=== PATIENT | male | born 1940 | race Caucasian/White ===

== ENCOUNTER → 2018-02-04 08:34 | Outpatient (CLI) | payer OTHER, SELFPAY ==
--- NOTE | 2018-02-04 08:34 | DT_ITS ---
This patient was seen during an EMR downtime February 04, 2018 - February 11, 2018. This patient may have a combination of paper and electronic documentation or all paper documentation. All documentation is viewable within the e-chart portion of [facility] for each patient visit.
[2018-02-10 04:36] LABS: Anion Gap 7 (5-15); BUN 22 mg/dL (7-18); BUN/Creat Ratio 21.4 RATIO (10-20); Calcium,Total 8.9 mg/dL (8.5-10.1); Chloride 105 mmol/L (98-107); Cholesterol 142 mg/dL (200); Creatinine, Serum 1.03 mg/dL (0.70-1.30); EST Glomerular Filtration Rate 75 mL/min (>60); Est Glom Filt Rate - Afr Amer 91 mL/min (>60); Glucose 108 mg/dL (74-106); High Density Lipoprotein 34 mg/dL; Potassium 4.1 mmol/L (3.5-5.1); Sodium Level 139 mmol/L (136-145); Triglycerides 186 mg/dL; Very Low Density Lipoprotein 37 mg/dL (5-40)
== END ==
PROVIDERS: Family Provider Family Medicine; PCP Family Medicine; Visit Provider Family Medicine
DX: E78.5 Hyperlipidemia, unspecified (principal); F52.21 Male erectile disorder; Z12.5 Encounter for screening for malignant neoplasm of prostate
CPT/HCPCS: 36415; 80048; 80061; 84153; G0103

== ENCOUNTER 2018-07-14 04:12 | Observation (INO) | payer MEDICARE, SELFPAY ==
[2018-07-14] VITALS (14 sets, daily range): BP systolic 118–148; BP diastolic 65–82; PULSE 45–68; RESP 12–58; TEMP -7.2–36.7; O2SAT 95–100; BMI 33.5; BMI 32.8
--- NOTE | 2018-07-14 04:46 | EKG12_ITS ---
Test Reason : DIZZINESS Blood Pressure : / mmHG Vent. Rate : 055 BPM Atrial Rate : 055 BPM P-R Int : 156 ms QRS Dur : 138 ms QT Int : 480 ms P-R-T Axes : 058 -48 012 degrees QTc Int : 459 ms Sinus bradycardia with Premature atrial complexes Right bundle branch block Left anterior fascicular block Bifascicular block Cannot rule out Inferior infarct (masked by fascicular block?) , age undetermined Abnormal ECG Confirmed by TOPHER CLEMENTE, EDUARDO ([id number]), offline editor KELL RINCON ([id number]) on 07/17/2018 11:10:02 AM Referred By: JOHNNY Confirmed By:EDUARDO OBANDO MD
--- NOTE | 2018-07-14 04:50 | RAD_ITS ---
STUDY: X-RAY CHEST REASON FOR EXAM: Male, 78 years old. Dizziness and near syncope. TECHNIQUE: PA and lateral views of the chest. COMPARISON: None. FINDINGS: Cardiac monitoring leads are present. There is hyperinflation of the lungs consistent with chronic obstructive lung disease (COPD). There is interstitial thickening visible in both lungs. There is no demonstrated pleural abnormality. Normal size heart. Normal mediastinum and [place]. There is prominence of the pulmonary hilar arteries without peripheral pulmonary vascular congestion. There is atherosclerotic calcification of the aortic arch with tortuosity. There are diffuse degenerative changes of the visualized thoracic spine. Normal visualized ribs, clavicles, and shoulders. There is no demonstrated abnormality of the visualized soft tissue structures of the upper abdomen. RAD/Chest PA and Lateral IMPRESSION: No radiographic evidence of acute cardiopulmonary disease. Electronically Signed: Liliana Johns MD at 5:43 EST , Service support ,
[2018-07-14 04:54] LABS: Absolute Lymphocyte Count 1.69 X10^3/ul (0.83-4.51); Basophil# 0.01 X10^3/uL; Basophil% 0.2 % (0-1); Eosinophil# 0.13 X10^3/uL; Eosinophils% 2.5 % (0-5); Hematocrit 39.5 % (40-54); Hemoglobin 13.3 g/dl (13.0-16.5); Lymphocyte # 1.69 X10^3/ul (4.0); Lymphocyte % 32.7 % (19-41); Mean Corp Hgb Conc 33.7 g/gl (32-36); Mean Platelet Vol. 10.9 fl (6.2-12.0); Monocyte# 0.34 X10^3/uL; Monocyte% 6.6 % (0-10); Neutrophil # 2.99 X10^3/uL (2.7-7.7); Neutrophil % 57.8 % (47-70); Platelet Count 137 K/mm3 (150-450); RBC Distribution Width CV 12.6 % (11.6-14.6); RBC Distribution Width SD 40.4 fl (35.1-43.9); Red Blood Count 4.44 M/mm3 (4.6-6.2); White Blood Count 5.2 K/mm3 (4.4-11.0)
[2018-07-14] MEDS: Aspirin 81 MG TAB.CHEW 324 MG PO (04:54)
[2018-07-14 04:58] LABS: POSITIVE COUNT NO; POSITIVE DIFFERENTIAL NO; POSITIVE MORPHOLOGY NO
[2018-07-14 05:17] LABS: Anion Gap 10 (5-15); BUN 24 mg/dL (7-18); BUN/Creat Ratio 22.2 RATIO (10-20); Chloride 103 mmol/L (98-107); Creatinine, Serum 1.08 mg/dL (0.70-1.30); EST Glomerular Filtration Rate 71 mL/min (>60); Est Glom Filt Rate - Afr Amer 86 mL/min (>60); Estimated Creatinine Clearance 60.08 ml/min; Glucose 106 mg/dL (74-106); Potassium 3.7 mmol/L (3.5-5.1); Sodium Level 142 mmol/L (136-145)
--- NOTE | 2018-07-14 05:33 | HP.PCM_ITS ---
Problem List (1) Near syncope Status: Acute (2) Near syncope Status: Acute (3) Premature ventricular contraction Status: Acute (4) Premature atrial contractions Status: Acute (5) Paroxysmal atrial tachycardia Status: Acute (6) Musculoskeletal chest pain Status: Chronic (7) Ectopic cardiac beats Status: Chronic (8) Atherosclerosis of [place] coronary artery of [place] heart without angina pectoris Status: Chronic (9) Paroxysmal atrial fibrillation Status: Chronic (10) Abnormal stress test Status: Chronic (11) Ventricular ectopy Status: Chronic (12) Angina pectoris Status: Chronic (13) HLD (hyperlipidemia) Status: Chronic Qualifiers: Hyperlipidemia type: mixed hyperlipidemia Qualified Code(s): E78.2 - Mixed hyperlipidemia; E78.2 - Mixed hyperlipidemia; E78.2 - Mixed hyperlipidemia (14) HTN (hypertension) Status: Chronic Qualifiers: Hypertension type: essential hypertension Qualified Code(s): I10 - Essential (primary) hypertension; I10 - Essential (primary) hypertension; I10 - Essential (primary) hypertension History of Present Illness Date of Admission: 07/14/18 Chief Complaint: Dizziness and lightheadedness today The patient is a 78 year old M with history of mild coronary artery disease, paroxysmal A. fib on Xarelto came to ER when he felt dizzy and lightheaded when he got up for bathroom. He was foggy but denies loss of consciousness for about 5 minutes. This resolved on patient feels completely normal. In ED, patient heart rate 54/min, sinus rhythm with no hypoxia. Patient states that he started always in 50s. EKG shows sinus bradycardia with bifascicular block, RBBB and LAFB, LAD at 55 bpm. Past Medical History Past Medical History (Chronic Problems): Chronic Problems (Last Reviewed 05/24/18 @ 15:04 by Jo Alvarez) Musculoskeletal chest pain (Chronic) Ectopic cardiac beats (Chronic) Atherosclerosis of [place] coronary artery of [place] heart without angina pectoris (Chronic) Paroxysmal atrial fibrillation (Chronic) Abnormal stress test (Chronic) Ventricular ectopy (Chronic) Angina pectoris (Chronic) HLD (hyperlipidemia) (Chronic) HTN (hypertension) (Chronic) Medical History: Medical History (Last Reviewed 05/24/18 @ 15:04 by Jo Alvarez) Premature ventricular contraction (Acute) I49.3 Premature atrial contractions (Acute) I49.1 Paroxysmal atrial tachycardia (Acute) I47.1 Paroxysmal atrial fibrillation (Chronic) I48.0 Abnormal stress test (Chronic) Ventricular ectopy (Chronic) I49.3 Angina pectoris (Chronic) I20.9 HLD (hyperlipidemia) (Chronic) E78.5 HTN (hypertension) (Chronic) I10 DDD (degenerative disc disease), cervical M50.30 Allergies No Known Drug Allergies Allergy (Unknown, Verified 07/14/18 04:23) Other Home Medications: Ambulatory Orders Medication Instructions Recorded Hydrochlorothiazide [Hctz] 25 mg PO DAILY 06/20/16 Naproxen [Naprosyn] 1 tab PO DAILY 06/20/16 Simvastatin [Zocor] 20 mg PO DAILY 06/20/16 Nitroglycerin [Nitrostat] 0.4 mg SUBLINGUAL Q5M PRN #1 bottle 06/21/16 Aspirin [Aspirin, Baby] 81 mg PO DAILY@0800 03/19/17 rivaroxaban 20 mg tablet 20 mg PO DAILY #90 tab 11/14/17 atenolol 25 mg tablet 25 mg PO DAILY tab 07/10/18 losartan 100 mg tablet 100 mg PO DAILY 07/10/18 Omeprazole [Prilosec] 20 mg PO DAILY 07/14/18 Surgical History: Surgical History (Last Reviewed 05/24/18 @ 15:04 by Jo Alvarez) History of left heart catheterization Z98.890 06/21/2016- mild obstructive disease; Surgical History: no surgical history Smoking Status: Former smoker Review of Systems Constitutional: Denies: Chills, Fever, Weight Change Eyes: Denies: Blurred vision, Conjunctivae Inflammation, Double vision HEENT: Denies: Head Aches, Sinus Congestion, Sinus Drainage Cardiovascular: Reports: Light Headedness. Denies: Chest Pain, Palpitations Respiratory: Denies: Cough, Shortness of breath at rest, Sputum production Gastrointestinal: Denies: Abdominal Pain, Nausea, Vomiting Genitourinary: Denies: Dysuria Musculoskeletal: Denies: Joint Pain, Joint Tenderness Skin: Denies: Rash, Wounds Neurological: Denies: Numbness, Tingling, Focal weakness Psychiatric: Denies: Anxiety, Depression, Homicidal Ideations, Suicidal Ideations Hematologic/ Lymphatic: Denies: Easy Bruising, Easy Bleeding VTE Information - Inpt Only VTE Present on Admission: No VTE Mechan Device Prophylaxis: None Reason prophylaxis not ordered:: Procedure Not Indicated - On Xarelto Patient Problems: Active and Suspected Problems (Last Reviewed 05/24/18 @ 15:04 by Jo Alvarez) Near syncope (Acute) Near syncope (Acute) - Physical Exam General: Alert, Oriented x3, Cooperative HEENT: Atraumatic, PERRLA, EOMI, Normocephalic Neck: Supple, No JVD, Negative Carotid Bruits Lungs: Clear to auscultation, Normal air movement, No rhonchi, No wheeze, No rales Cardiovascular: Regular Rhythm, Normal S1, Normal S2, No murmurs, Bradycardic Abdomen: Bowel Sounds Present, Soft, Non Tender, Non-Distended Extremities: Capillary Refill Less than 3 Seconds, Edema, - - Mild chronic venous stasis with flores discoloration Skin: No rashes, No breakdown Musculoskeletal: No Tenderness to Palpation of Joints or Extremities, Arthritic Changes Neurological: Cranial nerves II-XII grossly intact, Deep Tendon Reflexes 2+/4 and Symmetrical, Neuro grossly intact, Motor Exam 5/5 strength throughout Psych/Mental Status: Normal Affect, Appropriate Vital Signs Temp Pulse Resp BP Pulse Ox 97.7 F L 54 L 20 H 125/82 H 96 07/14/18 04:14 07/14/18 04:14 07/14/18 04:14 07/14/18 04:14 07/14/18 04:46 Oxygen Delivery Method Room Air Weight: 233 lb 7.512 oz Body Mass Index (BMI) 33.5 Laboratory Tests Past 24 Hrs 07/14/18 07/14/18 04:30 04:30 WBC 5.2 RBC 4.44 L Hgb 13.3 Hct 39.5 L MCV 89.0 MCH 30.0 MCHC 33.7 RDW 12.6 RDW Differential 40.4 Plt Count 137 L MPV 10.9 Immature Gran % (Auto) 0.200 Neut % (Auto) 57.8 Lymph % (Auto) 32.7 [place] % (Auto) 6.6 Eos % (Auto) 2.5 Baso % (Auto) 0.2 Absolute Neuts (auto) 3.0 Absolute Lymphs (auto) 1.69 Total Counted Not Reportable Sodium 142 Potassium 3.7 Chloride 103 Carbon Dioxide 29.0 Anion Gap 10 BUN 24 H Creatinine 1.08 Estim Creat Clear Calc 60.08 Est GFR (MDRD) Af Amer 86 Est GFR (MDRD) Non-Af 71 BUN/Creatinine Ratio 22.2 H Glucose 106 Calcium 9.0 Troponin I < 0.015 Assessment/Plan All Active Problems (Last Reviewed 05/24/18 @ 15:04 by Jo Alvarez) Near syncope (Acute) Near syncope (Acute) Premature ventricular contraction (Acute) Premature atrial contractions (Acute) Paroxysmal atrial tachycardia (Acute) The patient is a 78 year old M with history of mild coronary artery disease, paroxysmal A. fib on Xarelto came to ER when he felt dizzy and lightheaded when he got up for bathroom. He was foggy but denies loss of consciousness for about 5 minutes. This resolved on patient feels completely normal. In ED, patient heart rate 54/min, sinus rhythm with no hypoxia. Patient states that he started always in 50s. EKG shows sinus bradycardia with bifascicular block, RBBB and LAFB, LAD at 55 bpm. 1. Near syncope, probably vasovagal/bradycardia: The patient is being admitted in PCU for observation. Cardiac monitoring. Orthostatic vitals. IV fluid normal saline 75 mL/h. 2D echo ordered. Patient had echo in June 2016 which showed mild concentric LVH, normal LV size and systolic function; EF 65%. No regional wall motion abnormality. Left atrium moderately enlarged. Normal right atrium. Normal right ventricular systolic function. No significant valvular pathology. RVSP 28 mmHg. 2. Coronary artery disease,: and mild carotid stenosis: The patient had cardiac cath in June 2016 reported as mild diffuse 10 to 25% disease in proximal to mid LAD, diagonal 1 ostial/proximal 25%. EF 65% by LV gram. Patient had carotid Doppler in June 2017 reported as approximately 50% stenosis in the ICA bilaterally. 3. Arrhythmia: PVCs, proximal atrial tachycardia, paroxysmal atrial fibrillation on Xarelto and Chronic RBBB and LAFB bifascicular block : Stable. 4. Hypertension and dyslipidemia: Home medication reconciliation done. Fasting lipid profile tomorrow a.m. DVT prophylaxis: On Xarelto Clinical Impression(s) from Imaging Studies Chest X-Ray 07/14/18 04:50 IMPRESSION: No radiographic evidence of acute cardiopulmonary disease. Laboratory Results 07/14/18 04:30: WBC 5.2, RBC 4.44 L, Hgb 13.3, Hct 39.5 L, MCV 89.0, MCH 30.0, MCHC 33.7, RDW 12.6, RDW Differential 40.4, Plt Count 137 L, MPV 10.9, Immature Gran % (Auto) 0.200, Neut % (Auto) 57.8, Lymph % (Auto) 32.7, [place] % (Auto) 6.6, Eos % (Auto) 2.5, Baso % (Auto) 0.2, Absolute Neuts (auto) 3.0, Absolute Lymphs (auto) 1.69, Total Counted Not Reportable 07/14/18 04:30: Sodium 142, Potassium 3.7, Chloride 103, Carbon Dioxide 29.0, Anion Gap 10, BUN 24 H, Creatinine 1.08, Estim Creat Clear Calc 60.08, Est GFR (MDRD) Af Amer 86, Est GFR (MDRD) Non-Af 71, BUN/Creatinine Ratio 22.2 H, Glucose 106, Calcium 9.0, Troponin I < 0.015 07/14/18 04:30: Magnesium Pending Code Visit OBSV E&M: [id number] Initial observation care L3
--- NOTE | 2018-07-14 05:47 | ED.VISSUMM ---
- ER Visit Summary Date of Service: 07/14/18 Chief Complaint: Dizziness History of Present Illness: The patient is a 78 M who presents with dizziness. He describes this is near syncope. He woke up to go to the bathroom and felt very dizzy and had to stop and lean against his bed. He states that he became diaphoretic. This episode lasted about 5 minutes. Currently he is asymptomatic. No associated chest pain or shortness of breath. He does have a history of paroxysmal atrial fibrillation. His atenolol was recently increased however he went back to his previous dosing due to bradycardia. Physical Examination: Afebrile vitals notable for heart rate 54. Moist mucous membranes Heart regular rate and rhythm Lungs are clear Abdomen soft Alert Test Results: EKG shows sinus bradycardia at a rate of 55 with a right bundle branch block and left anterior fascicular block. CBC BMP troponin unremarkable, negative troponin. Chest x-ray on my review shows no acute process. Emergency Department Course and Treatment: Patient remained hemodynamically stable here in the emergency department and remained asymptomatic. Given his comorbidities with diaphoresis and near syncope I felt that he should be placed in observation for cardiac monitoring and serial enzymes. He was discussed with hospitalist and admitted. Treatment Plan: [] Disposition: Admit Impression: Near syncope This note was generated with [employer] dictation software. It may contain incorrect words, spelling, and punctuation that were not noted in review of the chart prior to signing ED Disposition - Plan for ED Patient: Chief Complaint: Dizziness Referrals: Jadiel Johns MD [Primary Care Provider] -
[2018-07-14] MEDS: 0.9% Normal Saline 1,000 ML 100 ML IV ×2 (07:02→15:41)
[2018-07-14] MEDS: 0.9% NaCl Peripheral Flush Adult/Peds IV (07:03)
[2018-07-14 08:16] LABS: Magnesium 1.7 mg/dL (1.6-2.6)
[2018-07-14] MEDS: Rivaroxaban 20 MG Tablet PO (09:30)
[2018-07-14] MEDS: Pantoprazole Sodium 20 MG Tablet PO (09:30)
[2018-07-14] MEDS: Aspirin 81 MG TAB.CHEW PO (09:30)
[2018-07-14] MEDS: Atenolol 25 MG Tablet PO (09:30)
[2018-07-14] MEDS: hydroCHLOROthiazide 25 MG Tablet PO (09:30)
[2018-07-14] MEDS: Losartan Potassium 100 MG Tablet PO (09:55)
[2018-07-14] MEDS: Naproxen 500 MG Tablet PO (09:55)
--- NOTE | 2018-07-14 12:54 | PN_ITS ---
<Lu Eugene - Last Filed: 07/14/18 12:54> Patient Problems: Active and Suspected Problems (Last Reviewed 05/24/18 @ 15:04 by Jo Alvarez) Near syncope (Acute) Near syncope (Acute) Subjective: Patient seen and examined. Denies further dizziness, syncope/presyncope. Denies chest pain, shortness of breath. Wishes to return home as soon as possible. - Physical Exam General: Alert, Oriented x3, Cooperative HEENT: Atraumatic, PERRLA, EOMI, Normocephalic Neck: Supple, No JVD, Negative Carotid Bruits Lungs: Clear to auscultation, Normal air movement Cardiovascular: Regular Rhythm, Normal S1, Normal S2, No murmurs, Bradycardic Abdomen: Bowel Sounds Present, Soft, Non Tender, Non-Distended Extremities: No clubbing, No cyanosis, No edema, Capillary Refill Less than 3 Seconds Skin: No rashes, No breakdown Musculoskeletal: No Tenderness to Palpation of Joints or Extremities Neurological: Cranial nerves II-XII grossly intact, Neuro grossly intact Psych/Mental Status: Normal Affect, Appropriate Vital Signs Temp Pulse Resp BP Pulse Ox 97.8 F 50 L 16 120/69 98 07/14/18 09:36 07/14/18 11:00 07/14/18 09:36 07/14/18 09:37 07/14/18 09:36 Oxygen Delivery Method Room Air Weight: 228 lb 13.437 oz Body Mass Index (BMI) 32.8 Orthostatic Vital Signs Start: 07/14/18 09:37 Freq: q24h Status: Active Protocol: Activity Type Activity Date Activity User E-Sign Co-Sign Detail Recorded Client Recorded Date Recorded By Document 07/14/18 09:37 MLB [id number] 07/14/18 09:38 MLB 07/14/18 09:37 Orthostatic Vitals Standing -Blood Pressure (90/60-120/80) 129/65 H -Extremity Use Right Arm -Pulse Rate (60-100) 64 Sitting -Blood Pressure (90/60-120/80) 118/73 -Extremity Use Right Arm -Pulse Rate (60-100) 68 Lying -Blood Pressure (90/60-120/80) 120/69 -Extremity Use Right Arm -Pulse Rate (60-100) 58 L Laboratory Tests Past 24 Hrs 07/14/18 07/14/18 07/14/18 04:30 04:30 04:30 WBC 5.2 RBC 4.44 L Hgb 13.3 Hct 39.5 L MCV 89.0 MCH 30.0 MCHC 33.7 RDW 12.6 RDW Differential 40.4 Plt Count 137 L MPV 10.9 Immature Gran % (Auto) 0.200 Neut % (Auto) 57.8 Lymph % (Auto) 32.7 [place] % (Auto) 6.6 Eos % (Auto) 2.5 Baso % (Auto) 0.2 Absolute Neuts (auto) 3.0 Absolute Lymphs (auto) 1.69 Total Counted Not Reportable Sodium 142 Potassium 3.7 Chloride 103 Carbon Dioxide 29.0 Anion Gap 10 BUN 24 H Creatinine 1.08 Estim Creat Clear Calc 60.08 Est GFR (MDRD) Af Amer 86 Est GFR (MDRD) Non-Af 71 BUN/Creatinine Ratio 22.2 H Glucose 106 Calcium 9.0 Magnesium 1.7 Troponin I < 0.015 07/14/18 07/14/18 07:35 10:45 WBC RBC Hgb Hct MCV MCH MCHC RDW RDW Differential Plt Count MPV Immature Gran % (Auto) Neut % (Auto) Lymph % (Auto) [place] % (Auto) Eos % (Auto) Baso % (Auto) Absolute Neuts (auto) Absolute Lymphs (auto) Total Counted Sodium Potassium Chloride Carbon Dioxide Anion Gap BUN Creatinine Estim Creat Clear Calc Est GFR (MDRD) Af Amer Est GFR (MDRD) Non-Af BUN/Creatinine Ratio Glucose Calcium Magnesium Troponin I 0.017 0.015 Medical Necessity - Tobacco Use Smoking Status: Former smoker Assessment/Plan All Active Problems (Last Reviewed 05/24/18 @ 15:04 by Jo Alvarez) Near syncope (Acute) Near syncope (Acute) Premature ventricular contraction (Acute) Premature atrial contractions (Acute) Paroxysmal atrial tachycardia (Acute) 1. Near syncope, suspect vasovagal-orthostatic vitals negative. Troponin negative. Chest x-ray without acute process. EKG on admission without ST-T changes. Obtain echocardiogram. 2. Mild bradycardia-suspect due to beta-racquel regimen. Heart rate consistently in the 50s. Monitor telemetry for significant bradycardia. 3. CAD-no prior PCI. Cardiac catheterization June 2016 with mild CAD. Managed medically. Patient follows with Dr. Amaro. Continue aspirin, statin, beta-racquel. 4. Paroxysmal atrial fibrillation-continue home Xarelto regimen, atenolol. 5. Hypertension-stable, continue home HCTZ, losartan regimen. 6. Hyperlipidemia-continue statin. 7. GERD-continue omeprazole. DVT prophylaxis-Xarelto. This patient was seen by AILYN Garcia under the supervision of Dr. Elias. <Anthony Elias - Last Filed: 07/14/18 14:15> - Physical Exam Vital Signs Temp Pulse Resp BP Pulse Ox 97.8 F 50 L 16 120/69 98 07/14/18 09:36 07/14/18 11:00 07/14/18 09:36 07/14/18 09:37 07/14/18 09:36 Oxygen Delivery Method Room Air Weight: 103.8 kg Body Mass Index (BMI) 32.8 Orthostatic Vital Signs Start: 07/14/18 09:37 Freq: q24h Status: Active Protocol: Activity Type Activity Date Activity User E-Sign Co-Sign Detail Recorded Client Recorded Date Recorded By Document 07/14/18 09:37 MLB [id number] 07/14/18 09:38 MLB 07/14/18 09:37 Orthostatic Vitals Standing -Blood Pressure (90/60-120/80) 129/65 H -Extremity Use Right Arm -Pulse Rate (60-100) 64 Sitting -Blood Pressure (90/60-120/80) 118/73 -Extremity Use Right Arm -Pulse Rate (60-100) 68 Lying -Blood Pressure (90/60-120/80) 120/69 -Extremity Use Right Arm -Pulse Rate (60-100) 58 L Laboratory Tests Past 24 Hrs 07/14/18 07/14/18 07/14/18 04:30 04:30 04:30 WBC 5.2 RBC 4.44 L Hgb 13.3 Hct 39.5 L MCV 89.0 MCH 30.0 MCHC 33.7 RDW 12.6 RDW Differential 40.4 Plt Count 137 L MPV 10.9 Immature Gran % (Auto) 0.200 Neut % (Auto) 57.8 Lymph % (Auto) 32.7 [place] % (Auto) 6.6 Eos % (Auto) 2.5 Baso % (Auto) 0.2 Absolute Neuts (auto) 3.0 Absolute Lymphs (auto) 1.69 Total Counted Not Reportable Sodium 142 Potassium 3.7 Chloride 103 Carbon Dioxide 29.0 Anion Gap 10 BUN 24 H Creatinine 1.08 Estim Creat Clear Calc 60.08 Est GFR (MDRD) Af Amer 86 Est GFR (MDRD) Non-Af 71 BUN/Creatinine Ratio 22.2 H Glucose 106 Calcium 9.0 Magnesium 1.7 Troponin I < 0.015 07/14/18 07/14/18 07:35 10:45 WBC RBC Hgb Hct MCV MCH MCHC RDW RDW Differential Plt Count MPV Immature Gran % (Auto) Neut % (Auto) Lymph % (Auto) [place] % (Auto) Eos % (Auto) Baso % (Auto) Absolute Neuts (auto) Absolute Lymphs (auto) Total Counted Sodium Potassium Chloride Carbon Dioxide Anion Gap BUN Creatinine Estim Creat Clear Calc Est GFR (MDRD) Af Amer Est GFR (MDRD) Non-Af BUN/Creatinine Ratio Glucose Calcium Magnesium Troponin I 0.017 0.015 Assessment/Plan This patient was seen in conjunction with AILYN Garcia . I have independently interviewed and examined the patient and reviewed pertinent historical, laboratory, and other data. Please refer to AILYN Garcia note for details of this patient's presentation, findings, and recommendations. I have reviewed AILYN Garcia note and concur with documented findings. In brief, patient 78-year-old gentleman admitted with near syncopal episode. Patient has been admitted to a monitored bed currently undergoing evaluation Assessment: Recommendations: 1. I have discussed the results of my overview and impressions with the patient 2. Options for management were reviewed
[2018-07-14] MEDS: Docusate Sodium 100 MG Capsule 200 MG PO (15:44)
[2018-07-14] MEDS: Atorvastatin Calcium 10 MG Tablet PO (21:46)
[2018-07-15] MEDS: 0.9% Normal Saline 1,000 ML 100 ML IV (01:45)
[2018-07-15 02:59] VITALS: PULSE 53
[2018-07-15 03:27] VITALS: BP 149/73; PULSE 53; RESP 18; TEMP 36.3; O2SAT 98
--- NOTE | 2018-07-15 05:55 | ECHOD_ITS ---
Reason For Study: [place]hm[place], Near Syncope Procedure This was a 2D Doppler, Color Flow transthoracic echocardiogram. Exam performed portable in patient room. Left Ventricle Normal LV size. Left ventricular systolic function is normal. The estimated ejection fraction is 65 %. No evidence for diastolic dysfunction. No regional wall motion abnormalities noted. Right Ventricle Normal RV size. Normal systolic function. Atria The left atrium is mildly enlarged. The right atrium is mildly enlarged. Mitral Valve Normal mitral valve. Tricuspid Valve Normal tricuspid valve. Mild (1+) tricuspid valve insufficiency. Pulmonary artery systolic pressure is 45 mmHg. Aortic Valve Normal aortic valve. Trisinus/trileaflet aortic valve. Pulmonic Valve Normal pulmonic valve. Great Vessels Normal aortic root. The pulmonary artery is normal size. Normal inferior vena cava. Pericardium/Pleural No pericardial effusion. MMode/2D Measurements & Calculations LVIDd: 4.6 cm IVSd: 1.0 cm Ao root diam: 3.5 cm LVIDs: 3.2 cm LVPWd: 1.1 cm RVDd: 4.6 cm FS: 31.3 % LAV(MOD-bp): 67.9 ml LVAd ap4: 30.1 cm2 SV(MOD-sp4): 72.8 ml LAV(MOD-bp) Indexed: 30.8 ml/m2 EDV(MOD-sp4): 95.6 ml LAV(MOD-sp2): 78.9 ml EDV(sp4-el): 101.0 ml LAV(MOD-sp4): 55.5 ml LVAs ap4: 12.3 cm2 ESV(MOD-sp4): 22.8 ml ESV(sp4-el): 21.6 ml EF(MOD-sp4): 76.1 % EF(sp4-el): 78.7 % SV(sp4-el): 79.5 ml LA A4 area: 20.9 cm2 LA dimension(2D): 4.5 cm RA A4 area: 24.1 cm2 Doppler Measurements & Calculations MV E max dillan: 103.8 cm/sec Lat Peak E' Dillan: 9.0 cm/sec Med Peak E' Dillan: 6.5 cm/sec MV A max dillan: 74.7 cm/sec E/E' lat: 11.6 E/E' med: 15.9 MV E/A: 1.4 Ao V2 max: 159.2 cm/sec LV V1 max: 146.6 cm/sec PA V2 max: 108.3 cm/sec Ao max P.1 mmHg LV V1 max P.6 mmHg Ao V2 mean: 114.1 cm/sec Ao mean P.7 mmHg Ao V2 VTI: 41.6 cm PI end-d dillan: 97.7 cm/sec TR max dillan: 316.4 cm/sec TR max P.1 mmHg Interpretation Summary Normal LV size. Left ventricular systolic function is normal. The estimated ejection fraction is 65 %. No evidence for diastolic dysfunction. Mild (1+) tricuspid valve insufficiency. Pulmonary artery systolic pressure is 45 mmHg. Ordering Physician: Hamilton Ball Referring Physician: Jadiel Johns Performed By: Corinne Lemons RDCS, RVT
[2018-07-15 06:49] LABS: Thyroid Stim Hormone (TSH) 1.46 uIU/mL (0.358-3.74)
[2018-07-15 07:00] VITALS: PULSE 50
[2018-07-15] MEDS: Aspirin 81 MG TAB.CHEW PO (08:00)
[2018-07-15] MEDS: Naproxen 500 MG Tablet PO (08:00)
[2018-07-15] MEDS: Losartan Potassium 100 MG Tablet PO (08:00)
[2018-07-15] MEDS: hydroCHLOROthiazide 25 MG Tablet PO (08:01)
[2018-07-15] MEDS: Pantoprazole Sodium 20 MG Tablet PO (08:01)
[2018-07-15] MEDS: Rivaroxaban 20 MG Tablet PO (08:01)
[2018-07-15 09:25] VITALS: BP 155/75; PULSE 49; RESP 14; TEMP 36.7; O2SAT 96
[2018-07-15 11:00] VITALS: PULSE 63
--- NOTE | 2018-07-15 11:11 | PCM.DC ---
- Discharge Diagnoses Current Active Problems: Current Active and Chronic Problems (Last Reviewed 05/24/18 @ 15:04 by Jo Alvarez) Near syncope (Acute) You will use the following diet at home:: Cardiac Discharge Activity: Return to Normal Activity Call your doctor if you observe: Shortness of breath, Dizziness, Fainting spells, Chest pain Allergies/Adverse Reactions: Allergies No Known Drug Allergies Allergy (Unknown, Verified 07/14/18 04:23) Other Medications to take at Discharge Hydrochlorothiazide [Hctz] 25 mg PO DAILY 06/20/16 Naproxen [Naprosyn] 1 tab PO PRN PRN 06/20/16 Simvastatin [Zocor] 20 mg PO DAILY 06/20/16 Nitroglycerin [Nitrostat] 0.4 mg SUBLINGUAL Q5M PRN #1 bottle 06/21/16 Aspirin [Aspirin, Baby] 81 mg PO DAILY@0800 03/19/17 rivaroxaban 20 mg tablet 20 mg PO DAILY #90 tab 11/14/17 losartan 100 mg tablet 100 mg PO DAILY 07/10/18 Omeprazole [Prilosec] 20 mg PO DAILY 07/14/18 Atenolol [Tenormin (beta racquel)] 12.5 mg PO DAILY #0 tab 07/15/18 Primary Care Physician: Jadiel Johns MD [Primary Care Provider] - Please follow up with your Primary Care Physician in: 1 Week Test Results: Test results from this visit will be discussed in further detail at your follow-up appointment, if applicable. Proposed Discharge Date: 07/15/18
--- NOTE | 2018-07-15 11:14 | DCINST_ITS ---
- Discharge Diagnoses Current Active Problems: Current Active and Chronic Problems (Last Reviewed 05/24/18 @ 15:04 by Jo Alvarez) Near syncope (Acute) You will use the following diet at home:: Cardiac Discharge Activity: Return to Normal Activity Call your doctor if you observe: Shortness of breath, Dizziness, Fainting spells, Chest pain Allergies/Adverse Reactions: Allergies No Known Drug Allergies Allergy (Unknown, Verified 07/14/18 04:23) Other Medications to take at Discharge Hydrochlorothiazide [Hctz] 25 mg PO DAILY 06/20/16 Naproxen [Naprosyn] 1 tab PO PRN PRN 06/20/16 Simvastatin [Zocor] 20 mg PO DAILY 06/20/16 Nitroglycerin [Nitrostat] 0.4 mg SUBLINGUAL Q5M PRN #1 bottle 06/21/16 Aspirin [Aspirin, Baby] 81 mg PO DAILY@0800 03/19/17 rivaroxaban 20 mg tablet 20 mg PO DAILY #90 tab 11/14/17 losartan 100 mg tablet 100 mg PO DAILY 07/10/18 Omeprazole [Prilosec] 20 mg PO DAILY 07/14/18 Atenolol [Tenormin (beta racquel)] 12.5 mg PO DAILY #0 tab 07/15/18 Primary Care Physician: Jadiel Johns MD [Primary Care Provider] - Please follow up with your Primary Care Physician in: 1 Week Test Results: Test results from this visit will be discussed in further detail at your follow- up appointment, if applicable. Proposed Discharge Date: 07/15/18
--- NOTE | 2018-07-15 11:19 | PCM.DC.SUM ---
<Lu Eugene - Last Filed: 07/15/18 11:34> Discharge Date and Diagnosis Date of Admission: 07/14/18 Date of Discharge: 07/15/18 - Primary Discharge Diagnosis Active and Suspected Problems (Last Reviewed 05/24/18 @ 15:04 by Jo Alvarez) 1. Near syncope, suspect vasovagal 2. Mild bradycardia 3. CAD 4. Paroxysmal atrial fibrillation 5. Hypertension 6. Hyperlipidemia 7. GERD - Secondary Discharge Diagnosis Chronic Problems (Last Reviewed 05/24/18 @ 15:04 by Jo Alvarez) Musculoskeletal chest pain (Chronic) Ectopic cardiac beats (Chronic) Atherosclerosis of [place] coronary artery of [place] heart without angina pectoris (Chronic) Paroxysmal atrial fibrillation (Chronic) Abnormal stress test (Chronic) Ventricular ectopy (Chronic) Angina pectoris (Chronic) HLD (hyperlipidemia) (Chronic) HTN (hypertension) (Chronic) Hospital Course and Treatment Imaging Results: Diagnostic Data Chest X-Ray 07/14/18 04:50 IMPRESSION: No radiographic evidence of acute cardiopulmonary disease. Electronically Signed: Liliana Johns MD at 5:43 EST , Service support , Operations: None Procedures: 2-D Echocardiogram Summary of Care Provided: The patient is a 78 year old M admitted 07/14/2018 due to dizziness, lightheadedness. 1. Near syncope, suspect vasovagal-orthostatic vitals negative. Troponin negative. Chest x-ray without acute process. EKG on admission without ST-T changes. Echocardiogram completed, will be reviewed prior to discharge. Patient reports he took large dose of Viagra prior to episode of dizziness, lightheadedness. He states he got this medication from a friend. Discussed with patient to speak with primary care physician about further prescription. Follow-up with primary care physician in 1 week. 2. Mild bradycardia-suspect due to beta-racquel regimen. Reduce home atenolol regimen to 12.5 mg daily. No significant bradycardia on telemetry, heart rate consistently in the 50s. 3. CAD-no prior PCI. Cardiac catheterization June 2016 with mild CAD. Managed medically. Patient follows with Dr. Amaro. Continue aspirin, statin, beta-racquel. Continue scheduled outpatient follow-up with Dr. Moodispaw. 4. Paroxysmal atrial fibrillation-continue home Xarelto regimen, atenolol. 5. Hypertension-stable, continue home HCTZ, losartan regimen. 6. Hyperlipidemia-continue statin. 7. GERD-continue omeprazole. General: Alert, Oriented x3, Cooperative HEENT: Atraumatic, PERRLA, EOMI, Normocephalic Neck: Supple, No JVD, Negative Carotid Bruits Lungs: Clear to auscultation, Normal air movement Cardiovascular: Regular Rhythm, Normal S1, Normal S2, No murmurs, Bradycardic Abdomen: Bowel Sounds Present, Soft, Non Tender, Non-Distended Extremities: No clubbing, No cyanosis, No edema, Capillary Refill Less than 3 Seconds Skin: No rashes, No breakdown Musculoskeletal: No Tenderness to Palpation of Joints or Extremities Neurological: Cranial nerves II-XII grossly intact, Neuro grossly intact Psych/Mental Status: Normal Affect, Appropriate Patient seen exam prior to discharge. Physical assessment as noted above. Patient stable for discharge home with the follow-up her conditions as noted above. This patient was seen by AILYN Garcia under the supervision of Dr. Pineda. - Physical Exam Vital Signs Temp Pulse Resp BP Pulse Ox 98.0 F 49 L 14 155/75 H 96 07/15/18 09:25 07/15/18 09:25 07/15/18 09:25 07/15/18 09:25 07/15/18 09:25 Oxygen Delivery Method Room Air Weight: 228 lb 13.437 oz Body Mass Index (BMI) 32.8 Orthostatic Vital Signs Start: 07/14/18 09:37 Freq: q24h Status: Active Protocol: Activity Type Activity Date Activity User E-Sign Co-Sign Detail Recorded Client Recorded Date Recorded By Document 07/14/18 09:37 MLB [id number] 07/14/18 09:38 MLB 07/14/18 09:37 Orthostatic Vitals Standing -Blood Pressure (90/60-120/80) 129/65 H -Extremity Use Right Arm -Pulse Rate (60-100) 64 Sitting -Blood Pressure (90/60-120/80) 118/73 -Extremity Use Right Arm -Pulse Rate (60-100) 68 Lying -Blood Pressure (90/60-120/80) 120/69 -Extremity Use Right Arm -Pulse Rate (60-100) 58 L Intake and Output for Last 24 Hours 07/13/18 07/14/18 07/15/18 23:59 23:59 23:59 Intake Total 2088 520 / 520 Balance 2088 520 / 520 Laboratory Tests Past 24 Hrs 07/14/18 07/15/18 10:45 05:45 Troponin I 0.015 TSH 1.46 Discharge Diet: Low fat/ Low Cholesterol Discharge Activity: Return to Normal Activity Call your doctor if you observe: Shortness of breath, Dizziness, Fainting spells, Chest pain Home Medications: Medications to take at Discharge Hydrochlorothiazide [Hctz] 25 mg PO DAILY 06/20/16 Naproxen [Naprosyn] 1 tab PO PRN PRN 06/20/16 Simvastatin [Zocor] 20 mg PO DAILY 06/20/16 Nitroglycerin [Nitrostat] 0.4 mg SUBLINGUAL Q5M PRN #1 bottle 06/21/16 Aspirin [Aspirin, Baby] 81 mg PO DAILY@0800 03/19/17 rivaroxaban 20 mg tablet 20 mg PO DAILY #90 tab 11/14/17 losartan 100 mg tablet 100 mg PO DAILY 07/10/18 Omeprazole [Prilosec] 20 mg PO DAILY 07/14/18 Atenolol [Tenormin (beta racquel)] 12.5 mg PO DAILY #0 tab 07/15/18 Primary Care Physician: Jadiel Johns MD [Primary Care Provider] - Please follow up with your Primary Care Physician in: 1 Week Please Follow Up With: Mainor Amaro MD When: As scheduled Disposition: Home Minutes spent on discharge:: 35 Patient Condition:: Stable Medical Necessity - Tobacco Use Smoking Status: Former smoker Meaningful Use Info Meaningful Use Diagnoses (Choose all that apply): None applicable <Yanique Pineda E - Last Filed: 07/16/18 10:35> Discharge Date and Diagnosis - Secondary Discharge Diagnosis Chronic Problems (Last Reviewed 05/24/18 @ 15:04 by Jo Alvarez) Musculoskeletal chest pain (Chronic) Ectopic cardiac beats (Chronic) Atherosclerosis of [place] coronary artery of [place] heart without angina pectoris (Chronic) Paroxysmal atrial fibrillation (Chronic) Abnormal stress test (Chronic) Ventricular ectopy (Chronic) Angina pectoris (Chronic) HLD (hyperlipidemia) (Chronic) HTN (hypertension) (Chronic) Hospital Course and Treatment Imaging Results: 07/15/18 05:55 Echo Complete [ECHO] AM (NON MEDS) Summary of Care Provided: Hospitalist note: Discharge summary above reviewed and I agree with above discharge plan. Patient was admitted for near syncopal event. His workup during this hospital stay was unremarkable. His EKG revealed normal sinus rhythm without evidence of acute ischemic changes. His troponin was negative. His orthostatic vitals were negative. His chest x-ray showed no acute findings. His routine blood work was unremarkable. His heart rate has been in the 50s but he has been currently on atenolol for history of paroxysmal atrial fibrillation. This near syncopal event attributed to taking a large dose of Viagra which was reported by the patient after admission. Patient mentioned that he took 1 full tablet of Viagra and shortly after, he felt dizzy and lightheaded and about the past. There was no evidence of other acute pathology identified to explain his near syncopal events. 2D echocardiogram revealed normal LV size and function, ejection fraction of 65%, mild tricuspid insufficiency, pulmonary artery pressure of 45. Patient's blood pressure and other vital signs remained stable throughout admission except chronic bradycardia. Symptoms improved. Patient discharged home in a stable medical condition, discharged on his home medication without any changes, recommended to use a smaller dose of Viagra if needed and to discuss with his PCP regarding the use of Viagra, recommended follow-up with PCP in 1 week. - Physical Exam General: Alert, Oriented x3, Cooperative, No apparent distress. HEENT: Atraumatic, PERRLA, EOMI. Neck: Supple, No JVD, Negative Carotid Bruits, Trachea Midline, Thyroid Normal. Lungs: Clear to auscultation, Normal air movement, No rhonchi, No wheeze, No rales. Cardiovascular: Regular rate, Regular Rhythm, Normal S1, Normal S2, PMI Normal. Abdomen: Bowel Sounds Present, Soft, Non Tender, Non-Distended, No Hepato-splenomegaly. Extremities: No clubbing, No cyanosis, No edema Skin: No rashes, No breakdown Neurological: Neuro grossly intact Vital Signs are stable. This note was generated with [employer] software. It may contain incorrect words, spelling, and punctuation that were not noted in checking the note before signing. - Physical Exam Vital Signs Temp Pulse Resp BP Pulse Ox 98.0 F 63 14 155/75 H 96 07/15/18 09:25 07/15/18 11:00 07/15/18 09:25 07/15/18 09:25 07/15/18 09:25 Oxygen Delivery Method Room Air Weight: 228 lb 13.437 oz Body Mass Index (BMI) 32.8 Intake and Output for Last 24 Hours 07/13/18 07/14/18 07/15/18 23:59 23:59 23:59 Intake Total 2088 520 / 520 Balance 2088 520 / 520 Laboratory Tests Past 24 Hrs 07/15/18 05:45 TSH 1.46 Minutes spent on discharge:: 26 Patient Condition:: Stable Meaningful Use Info Meaningful Use Diagnoses (Choose all that apply): None applicable Code Visit OBSV E&M: 18587 Observation care discharge
--- NOTE | 2018-07-15 11:28 | DS.PCM_ITS ---
<Lu Eugene - Last Filed: 07/15/18 11:34> Discharge Date and Diagnosis Date of Admission: 07/14/18 Date of Discharge: 07/15/18 - Primary Discharge Diagnosis Active and Suspected Problems (Last Reviewed 05/24/18 @ 15:04 by Jo Alvarez) 1. Near syncope, suspect vasovagal 2. Mild bradycardia 3. CAD 4. Paroxysmal atrial fibrillation 5. Hypertension 6. Hyperlipidemia 7. GERD - Secondary Discharge Diagnosis Chronic Problems (Last Reviewed 05/24/18 @ 15:04 by Jo Alvarez) Musculoskeletal chest pain (Chronic) Ectopic cardiac beats (Chronic) Atherosclerosis of [place] coronary artery of [place] heart without angina pectoris (Chronic) Paroxysmal atrial fibrillation (Chronic) Abnormal stress test (Chronic) Ventricular ectopy (Chronic) Angina pectoris (Chronic) HLD (hyperlipidemia) (Chronic) HTN (hypertension) (Chronic) Hospital Course and Treatment Imaging Results: Diagnostic Data Chest X-Ray 07/14/18 04:50 IMPRESSION: No radiographic evidence of acute cardiopulmonary disease. Electronically Signed: Liliana Johns MD at 5:43 EST , Service support , Operations: None Procedures: 2-D Echocardiogram Summary of Care Provided: The patient is a 78 year old M admitted 07/14/2018 due to dizziness, lightheadedness. 1. Near syncope, suspect vasovagal-orthostatic vitals negative. Troponin negative. Chest x-ray without acute process. EKG on admission without ST-T changes. Echocardiogram completed, will be reviewed prior to discharge. Patient reports he took large dose of Viagra prior to episode of dizziness, lightheadedness. He states he got this medication from a friend. Discussed with patient to speak with primary care physician about further prescription. Follow-up with primary care physician in 1 week. 2. Mild bradycardia-suspect due to beta-racquel regimen. Reduce home atenolol regimen to 12.5 mg daily. No significant bradycardia on telemetry, heart rate consistently in the 50s. 3. CAD-no prior PCI. Cardiac catheterization June 2016 with mild CAD. Managed medically. Patient follows with Dr. Amaro. Continue aspirin, statin, beta-racquel. Continue scheduled outpatient follow-up with Dr. Moodispaw. 4. Paroxysmal atrial fibrillation-continue home Xarelto regimen, atenolol. 5. Hypertension-stable, continue home HCTZ, losartan regimen. 6. Hyperlipidemia-continue statin. 7. GERD-continue omeprazole. General: Alert, Oriented x3, Cooperative HEENT: Atraumatic, PERRLA, EOMI, Normocephalic Neck: Supple, No JVD, Negative Carotid Bruits Lungs: Clear to auscultation, Normal air movement Cardiovascular: Regular Rhythm, Normal S1, Normal S2, No murmurs, Bradycardic Abdomen: Bowel Sounds Present, Soft, Non Tender, Non-Distended Extremities: No clubbing, No cyanosis, No edema, Capillary Refill Less than 3 Seconds Skin: No rashes, No breakdown Musculoskeletal: No Tenderness to Palpation of Joints or Extremities Neurological: Cranial nerves II-XII grossly intact, Neuro grossly intact Psych/Mental Status: Normal Affect, Appropriate Patient seen exam prior to discharge. Physical assessment as noted above. Patient stable for discharge home with the follow-up her conditions as noted above. This patient was seen by AILYN Garcia under the supervision of Dr. Pineda. - Physical Exam Vital Signs Temp Pulse Resp BP Pulse Ox 98.0 F 49 L 14 155/75 H 96 07/15/18 09:25 07/15/18 09:25 07/15/18 09:25 07/15/18 09:25 07/15/18 09:25 Oxygen Delivery Method Room Air Weight: 228 lb 13.437 oz Body Mass Index (BMI) 32.8 Orthostatic Vital Signs Start: 07/14/18 09:37 Freq: q24h Status: Active Protocol: Activity Type Activity Date Activity User E-Sign Co-Sign Detail Recorded Client Recorded Date Recorded By Document 07/14/18 09:37 MLB [id number] 07/14/18 09:38 MLB 07/14/18 09:37 Orthostatic Vitals Standing -Blood Pressure (90/60-120/80) 129/65 H -Extremity Use Right Arm -Pulse Rate (60-100) 64 Sitting -Blood Pressure (90/60-120/80) 118/73 -Extremity Use Right Arm -Pulse Rate (60-100) 68 Lying -Blood Pressure (90/60-120/80) 120/69 -Extremity Use Right Arm -Pulse Rate (60-100) 58 L Intake and Output for Last 24 Hours 07/13/18 07/14/18 07/15/18 23:59 23:59 23:59 Intake Total 2088 520 / 520 Balance 2088 520 / 520 Laboratory Tests Past 24 Hrs 07/14/18 07/15/18 10:45 05:45 Troponin I 0.015 TSH 1.46 Discharge Diet: Low fat/ Low Cholesterol Discharge Activity: Return to Normal Activity Call your doctor if you observe: Shortness of breath, Dizziness, Fainting spells, Chest pain Home Medications: Medications to take at Discharge Hydrochlorothiazide [Hctz] 25 mg PO DAILY 06/20/16 Naproxen [Naprosyn] 1 tab PO PRN PRN 06/20/16 Simvastatin [Zocor] 20 mg PO DAILY 06/20/16 Nitroglycerin [Nitrostat] 0.4 mg SUBLINGUAL Q5M PRN #1 bottle 06/21/16 Aspirin [Aspirin, Baby] 81 mg PO DAILY@0800 03/19/17 rivaroxaban 20 mg tablet 20 mg PO DAILY #90 tab 11/14/17 losartan 100 mg tablet 100 mg PO DAILY 07/10/18 Omeprazole [Prilosec] 20 mg PO DAILY 07/14/18 Atenolol [Tenormin (beta racquel)] 12.5 mg PO DAILY #0 tab 07/15/18 Primary Care Physician: Jadiel Johns MD [Primary Care Provider] - Please follow up with your Primary Care Physician in: 1 Week Please Follow Up With: Mainor Amaro MD When: As scheduled Disposition: Home Minutes spent on discharge:: 35 Patient Condition:: Stable Medical Necessity - Tobacco Use Smoking Status: Former smoker Meaningful Use Info Meaningful Use Diagnoses (Choose all that apply): None applicable <Yanique Pineda E - Last Filed: 07/16/18 10:35> Discharge Date and Diagnosis - Secondary Discharge Diagnosis Chronic Problems (Last Reviewed 05/24/18 @ 15:04 by Jo Alvarez) Musculoskeletal chest pain (Chronic) Ectopic cardiac beats (Chronic) Atherosclerosis of [place] coronary artery of [place] heart without angina pectoris (Chronic) Paroxysmal atrial fibrillation (Chronic) Abnormal stress test (Chronic) Ventricular ectopy (Chronic) Angina pectoris (Chronic) HLD (hyperlipidemia) (Chronic) HTN (hypertension) (Chronic) Hospital Course and Treatment Imaging Results: 07/15/18 05:55 Echo Complete [ECHO] AM (NON MEDS) Summary of Care Provided: Hospitalist note: Discharge summary above reviewed and I agree with above discharge plan. Patient was admitted for near syncopal event. His workup during this hospital stay was unremarkable. His EKG revealed normal sinus rhythm without evidence of acute ischemic changes. His troponin was negative. His orthostatic vitals were negative. His chest x-ray showed no acute findings. His routine blood work was unremarkable. His heart rate has been in the 50s but he has been currently on atenolol for history of paroxysmal atrial fibrillation. This near syncopal event attributed to taking a large dose of Viagra which was reported by the patient after admission. Patient mentioned that he took 1 full tablet of Viagra and shortly after, he felt dizzy and lightheaded and about the past. There was no evidence of other acute pathology identified to explain his near syncopal events. 2D echocardiogram revealed normal LV size and function, ejection fraction of 65%, mild tricuspid insufficiency, pulmonary artery pressure of 45. Patient's blood pressure and other vital signs remained stable throughout admission except chronic bradycardia. Symptoms improved. Patient discharged home in a stable medical condition, discharged on his home medication without any changes, recommended to use a smaller dose of Viagra if needed and to discuss with his PCP regarding the use of Viagra, recommended follow-up with PCP in 1 week. - Physical Exam General: Alert, Oriented x3, Cooperative, No apparent distress. HEENT: Atraumatic, PERRLA, EOMI. Neck: Supple, No JVD, Negative Carotid Bruits, Trachea Midline, Thyroid Normal. Lungs: Clear to auscultation, Normal air movement, No rhonchi, No wheeze, No rales. Cardiovascular: Regular rate, Regular Rhythm, Normal S1, Normal S2, PMI Normal. Abdomen: Bowel Sounds Present, Soft, Non Tender, Non-Distended, No Hepato- splenomegaly. Extremities: No clubbing, No cyanosis, No edema Skin: No rashes, No breakdown Neurological: Neuro grossly intact Vital Signs are stable. This note was generated with [employer] software. It may contain incorrect words, spelling, and punctuation that were not noted in checking the note before signing. - Physical Exam Vital Signs Temp Pulse Resp BP Pulse Ox 98.0 F 63 14 155/75 H 96 07/15/18 09:25 07/15/18 11:00 07/15/18 09:25 07/15/18 09:25 07/15/18 09:25 Oxygen Delivery Method Room Air Weight: 228 lb 13.437 oz Body Mass Index (BMI) 32.8 Intake and Output for Last 24 Hours 07/13/18 07/14/18 07/15/18 23:59 23:59 23:59 Intake Total 2088 520 / 520 Balance 2088 520 / 520 Laboratory Tests Past 24 Hrs 07/15/18 05:45 TSH 1.46 Minutes spent on discharge:: 26 Patient Condition:: Stable Meaningful Use Info Meaningful Use Diagnoses (Choose all that apply): None applicable Code Visit OBSV E&M: 47261 Observation care discharge
== END 2018-07-15 11:13 | disposition home or self-care (01) ==
LOC: ED 05:56 → PCU 05:57
PROVIDERS: Admitting Provider Internal Medicine; Emergency Provider Emergency Medicine; Family Provider Family Medicine; PCP Family Medicine; Visit Provider Hospitalist
DX: R55 Syncope and collapse (principal); I25.10 Atherosclerotic heart disease of native coronary artery without angina pectoris; I48.0 Paroxysmal atrial fibrillation; R00.1 Bradycardia, unspecified; I10 Essential (primary) hypertension; K21.9 Gastro-esophageal reflux disease without esophagitis; R94.39 Abnormal result of other cardiovascular function study; Z79.899 Other long term (current) drug therapy; Z79.82 Long term (current) use of aspirin; Z87.891 Personal history of nicotine dependence; E78.2 Mixed hyperlipidemia; M50.30 Other cervical disc degeneration, unspecified cervical region
CPT/HCPCS: 36415; 71046; 80048; 83735; 84443; 84484; 85025; 93005; 93306; 96360; 96361; 97802; 99218; 99285; J7030; A4216; G0378

== ENCOUNTER → 2019-01-03 09:19 | Outpatient (CLI) | payer MEDICARE, SELFPAY ==
[2019-01-01 14:13] VITALS: BMI 33.1
[2019-01-03 10:24] LABS: AST(SGOT) 33 U/L (15-37); Alanine Aminotransfer ALT/SGPT 36 U/L (16-61); Albumin, Serum 4.2 g/dL (3.2-5.0); Alkaline Phosphatase 56 U/L (45-117); Bilirubin, Direct 0.11 mg/dL (0.00-0.30); Cholesterol 154 mg/dL (200); Globulin 3.4 g/dL (2.2-4.2); High Density Lipoprotein 44 mg/dL; Protein, Total 7.6 g/dL (6.4-8.2); Triglycerides 91 mg/dL; Very Low Density Lipoprotein 18 mg/dL (5-40)
== END ==
PROVIDERS: Family Provider Family Medicine; PCP Family Medicine; Referring Provider Internal Medicine Cardiovascular Disease; Visit Provider Internal Medicine Cardiovascular Disease
DX: E78.2 Mixed hyperlipidemia (principal)
CPT/HCPCS: 36415; 80061; 80076

== ENCOUNTER → 2019-01-29 10:52 | Outpatient (CLI) | payer MEDICARE, SELFPAY ==
[2019-01-01 14:13] VITALS: BMI 33.1
== END ==
PROVIDERS: Family Provider Family Medicine; PCP Family Medicine; Referring Provider Physician Assistant Medical; Visit Provider Physician Assistant Medical
DX: I48.0 Paroxysmal atrial fibrillation (principal); R55 Syncope and collapse
CPT/HCPCS: 93225; 93226

== ENCOUNTER → 2019-06-30 07:07 | Outpatient (CLI) | payer MEDICARE, SELFPAY ==
[2019-04-16 14:53] VITALS: BMI 32.8
[2019-06-30 08:03] LABS: AST(SGOT) 27 U/L (15-37); Alanine Aminotransfer ALT/SGPT 31 U/L (16-61); Albumin, Serum 4.1 g/dL (3.2-5.0); Alkaline Phosphatase 59 U/L (45-117); Bilirubin, Direct 0.13 mg/dL (0.00-0.30); Cholesterol 165 mg/dL (200); Globulin 3.6 g/dL (2.2-4.2); High Density Lipoprotein 37 mg/dL; Protein, Total 7.7 g/dL (6.4-8.2); Triglycerides 195 mg/dL; Very Low Density Lipoprotein 39 mg/dL (5-40)
== END ==
PROVIDERS: Family Provider Family Medicine; PCP Family Medicine; Referring Provider Internal Medicine Cardiovascular Disease; Visit Provider Internal Medicine Cardiovascular Disease
DX: E78.2 Mixed hyperlipidemia (principal)
CPT/HCPCS: 36415; 80061; 80076

== ENCOUNTER → 2019-07-09 12:18 | Outpatient (CLI) | payer MEDICARE, SELFPAY ==
[2019-04-16 14:53] VITALS: BMI 32.8
--- NOTE | 2019-07-09 | TISS_PTH ---
PATIENT: JOSEPH KUO GENE LOC: [facility] U#:[id number] AGE/SX: 85/M ROOM: RE07/09/[address]: Dr. Tj Rosales DDS : 1940 BED: DIS: SPEC #: [id number] RECD: 07/09/19 12:16 STATUS: CASSIE JAZMÍN #: [id number] RAKESH: 07/09/19 00:[address]: Tj Rosales DEPT: SURGICAL PATHOLOGY RECD BY: Reji Bernal ENTERED: 07/09/19 13:04 SP TYPE: Tissue Bx ROSALIND DR: Dr. Jadiel Gaspar MD Tissues: Mandible, NOS Procedures: Surgery Specimen Level IV HEADER OPERATION: Biopsy gingival tissue PRE-OP DIAGNOSIS: Rule out melanoma TISSUE SUBMITTED: Mandibular gingival tissue MICROSCOPIC DIAGNOSIS Mandibular gingival tissue, biopsy: Mild acanthosis, fibrosis and submucosal mild chronic inflammation. No evidence of malignancy. AM:pretty 11/7/19 MICROSCOPIC DESCRIPTION Slides are reviewed. GROSS DESCRIPTION Received is one container labeled with the patient's name and not further designated. The specimen consists of a fragment of brown soft tissue measuring 0.3 x 0.3 x 0.2 cm. The specimen is totally submitted in one cassette. / SJ:pretty 07/09/19 TC:3 CPT: 82605
== END ==
PROVIDERS: Family Provider Family Medicine; PCP Family Medicine; Referring Provider Dentist Oral and Maxillofacial Surgery; Visit Provider Dentist Oral and Maxillofacial Surgery
DX: L83 Acanthosis nigricans (principal)
CPT/HCPCS: 88305

== ENCOUNTER → 2019-07-18 07:49 | Outpatient (CLI) | payer MEDICARE, SELFPAY ==
[2019-07-09 12:55] VITALS: BMI 33.1
[2019-07-18 10:31] LABS: Anion Gap 6 (5-15); BUN 29 mg/dL (7-18); BUN/Creat Ratio 26.1 RATIO (10-20); Calcium,Total 9.4 mg/dL (8.5-10.1); Chloride 102 mmol/L (98-107); Creatinine, Serum 1.11 mg/dL (0.70-1.30); EST Glomerular Filtration Rate 68 mL/min (>60); Est Glom Filt Rate - Afr Amer 83 mL/min (>60); Glucose 104 mg/dL (74-106); Potassium 3.9 mmol/L (3.5-5.1); Sodium Level 138 mmol/L (136-145)
== END ==
PROVIDERS: Family Provider Family Medicine; PCP Family Medicine; Referring Provider Family Medicine; Visit Provider Family Medicine
DX: Z13.1 Encounter for screening for diabetes mellitus (principal)
CPT/HCPCS: 36415; 80048

== ENCOUNTER → 2019-07-18 08:15 | Outpatient (CLI) | payer MEDICARE, SELFPAY ==
[2019-07-09 12:55] VITALS: BMI 33.1
--- NOTE | 2019-07-18 08:21 | RAD_ITS ---
STUDY: X-RAY - THORACIC SPINE REASON FOR EXAM: Male, 79 years old. Back pain. No history of trauma. TECHNIQUE: 3 view(s) of the thoracic spine were obtained. COMPARISON: None. FINDINGS: Normal kyphosis of the thoracic spine. There is mild scoliosis, convexity to the right. There is demineralization of the thoracic spine with endplate spondylosis. There is multilevel disc space narrowing of the thoracic spine. There is diffuse osteopenia. The soft tissue structures are unremarkable. RAD/Thoracic Spine 3 Views IMPRESSION: Diffuse osteopenia along with multilevel spondylosis/degenerative disease. No acute fracture or subluxation is seen. Electronically Signed: Angelica Shin MD at 1:03 EST , Service support ,
== END ==
PROVIDERS: Family Provider Family Medicine; PCP Family Medicine; Referring Provider Family Medicine; Visit Provider Family Medicine
DX: Z00.00 Encounter for general adult medical examination without abnormal findings (principal); M85.88 Other specified disorders of bone density and structure, other site; M47.894 Other spondylosis, thoracic region; Z13.1 Encounter for screening for diabetes mellitus
CPT/HCPCS: 36415; 72072; 80048

== ENCOUNTER → 2019-07-23 11:16 | Outpatient (CLI) | payer MEDICARE, SELFPAY ==
[2019-07-09 12:55] VITALS: BMI 33.1
--- NOTE | 2019-07-23 11:20 | BD_ITS ---
STUDY: DUAL ENERGY X-RAY ABSORPTIOMETRY / DXA REASON FOR EXAM: Male, 79 years old. Loss of height. TECHNIQUE: Bone Mineral Density (BMD) measurements of lumbar spine and bilateral hips were obtained. COMPARISON: None. FINDINGS: Lumbar Spine (L1-L4): g/cm2 (1.264) / T-score (0.2) / Z-score (0.9) Findings are suggestive of normal bone density with a low fracture risk. Left Femur Total: g/cm2 (0.935) / T-score (-1.2) / Z-score (-0.2) Left Femoral Neck: g/cm2 (0.885) / T-score (-1.4) / Z-score (0.0) Right Femur Total: g/cm2 (0.813) / T-score (-2.0) / Z-score (-1.0) Right Femoral Neck: g/cm2 (0.808) / T-score (-2.0) / Z-score (-0.6) BD/Dexa Bone Density Study IMPRESSION: The patient is considered osteopenic as outlined below according to World [employer]reed[employer] Organization (WHO) criteria with a moderate fracture risk. Reference Information: The T-score is the number of standard deviations above or below the standard which is normal for young adults at their peak bone mineral density. The World Health Organization (WHO) interprets the T-scores as follows: Above -1 Normal bone density Between -1 and -2.5 Osteopenia Equal to / or below -2.5 Osteoporosis As a practical clinical guideline, osteopenia may be graded as follows: Mild -1 through -1.5 Moderate -1.6 through -2.0 Severe -2.1 through -2.4 The Z-score is the number of standard deviations above or below age-matched controls. A Z-score of less than -1.5 would be considered abnormal. References: 1. NIH Osteoporosis and Related Bone Diseases http://www.osteo.org 2. International Society for Clinical Densitometry http://www.iscd.org 3. National Osteoporosis Foundation http://www.nof.org Electronically Signed: Jason Oliver, at 11:22 EST , Service support ,
== END ==
PROVIDERS: Family Provider Family Medicine; PCP Family Medicine; Referring Provider Family Medicine; Visit Provider Family Medicine
DX: M85.89 Other specified disorders of bone density and structure, multiple sites (principal)
CPT/HCPCS: 77080

== ENCOUNTER 2019-12-18 00:33 | Emergency (ER) | payer MEDICARE, SELFPAY ==
[2019-10-03 15:06] VITALS: BMI 36.3
[2019-12-18] VITALS (7 sets, daily range): BP systolic 162–191; BP diastolic 99–129; PULSE 83–96; RESP 13–17; TEMP 36.6; O2SAT 96–99; BMI 34.4
--- NOTE | 2019-12-18 01:01 | RAD_ITS ---
STUDY: X-RAY CHEST REASON FOR EXAM: Male, 79 years old. Palpitations. TECHNIQUE: AP portable chest. COMPARISON: July 14, 2018. June 20, 2016. Thoracic spine July 18, 2019. FINDINGS: No infiltrates or effusions. No pneumothorax. 4.1 x 2.3 cm indistinct density left lung base medial to the left heart border of uncertain clinical significance. This may represent superimposition of normal structures. The density was not present previously. Normal size heart. Normal mediastinum and [place]. Normal visualized pulmonary arteries. Normal visualized aortic arch and descending thoracic aorta. Degenerative changes of the thoracic spine. Normal visualized ribs, clavicles, and shoulders. There is no demonstrated abnormality of the visualized soft tissue structures of the upper abdomen. RAD/Chest 1 View (Portable) IMPRESSION: No acute cardiopulmonary disease. 4 cm density left lung base of uncertain clinical significance. Recommend PA and lateral chest in 1 month or correlation with noncontrast CT chest. Electronically Signed: Lamin Mcdonald MD at 1:30 EDT , Service support ,
--- NOTE | 2019-12-18 01:01 | EKG12_ITS ---
Test Reason : PALPATATIONS Blood Pressure : / mmHG Vent. Rate : 097 BPM Atrial Rate : 208 BPM P-R Int : 000 ms QRS Dur : 144 ms QT Int : 358 ms P-R-T Axes : 000 -64 012 degrees QTc Int : 454 ms Atrial fibrillation Right bundle branch block Left anterior fascicular block Bifascicular block Abnormal ECG Confirmed by FLORENCIA CLEMENTE, SAIMA ([id number]), electronic news gathering editor KELL RINCON ([id number]) on 12/23/2019 9:12:44 AM Referred By: ARIANNA Confirmed By:JHOAN DON MD
[2019-12-18 01:05] LABS: Absolute Lymphocyte Count 1.75 X10^3/uL (0.83-4.51); Absolute Neutrophil Count 3.3 X10^3/uL (2.0-7.7); Basophil# 0.04 X10^3/uL; Basophil% 0.7 % (0-1); Eosinophil# 0.18 X10^3/uL; Eosinophils% 3.1 % (0-5); Hematocrit 42.9 % (40-54); Hemoglobin 14.1 g/dL (13.0-16.5); Lymphocyte # 1.75 X10^3/ul (4.0); Lymphocyte % 30.3 % (19-41); Mean Corp Hgb Conc 32.9 g/dL (32-36); Mean Corpuscular Hgb 28.8 pg (27.0-32.0); Mean Corpuscular Volume 87.6 fL (80-94); Mean Platelet Vol. 10.6 fl (6.2-12.0); Monocyte# 0.53 X10^3/uL; Monocyte% 9.2 % (0-10); NRBC Flagged by Analyzer 0 % (0-5); Neutrophil # 3.26 X10^3/uL (2.7-7.7); Neutrophil % 56.4 % (47-70); Platelet Count 167 K/mm3 (150-450); RBC Distribution Width CV 12.6 % (11.6-14.6); RBC Distribution Width SD 40.1 fl (35.1-43.9); White Blood Count 5.8 K/mm3 (4.4-11.0)
[2019-12-18 01:37] LABS: Anion Gap 3 (5-15); BUN 20 mg/dL (7-18); BUN/Creat Ratio 17.4 RATIO (10-20); Calcium,Total 9.4 mg/dL (8.5-10.1); Chloride 107 mmol/L (98-107); Creatinine, Serum 1.15 mg/dL (0.70-1.30); EST Glomerular Filtration Rate 65 mL/min (>60); Est Glom Filt Rate - Afr Amer 79 mL/min (>60); Estimated Creatinine Clearance 55.54 ml/min; Glucose 114 mg/dL (74-106); Magnesium 1.9 mg/dL (1.6-2.6); Potassium 4.2 mmol/L (3.5-5.1); Sodium Level 140 mmol/L (136-145); Thyroid Stim Hormone (TSH) 7.61 uIU/mL (0.358-3.74)
--- NOTE | 2019-12-18 01:42 | CT_ITS ---
STUDY: CT CHEST WITHOUT CONTRAST REASON FOR EXAM: Male, 79 years old. Palpitations, questionable left lower lobe mass on x-ray. RADIATION DOSAGE (If Supplied By Facility): CTDIvol = ( 18.56 ) mGy, DLP = ( 709.64 ) mGycm TECHNIQUE: Transaxial imaging was performed without the administration of intravenous contrast material. Individualized dose optimization techniques were used for this CT. COMPARISON: Chest x-ray December 18, 2019. FINDINGS: The lungs are normal. There is no demonstrated pleural abnormality. The area in question on the chest x-ray in the left lower lobe was well demonstrated on this exam and no abnormalities are identified. The finding on chest x-ray is compatible with focal increased density due to overlapping normal structures. The heart is not enlarged. Coronary artery calcifications. No pericardial effusion. Scattered small mediastinal lymph nodes. 1.8 and 1.6 cm precarinal and pretracheal lymph nodes respectively with fatty charlotte compatible with reactive lymph nodes. Normal hilar regions. Normal unenhanced pulmonary arteries. Atherosclerotic calcification of the thoracic aorta. Degenerative changes of the thoracic spine. Multiple hepatic cysts largest in the left lobe measuring 2.[address]/Chest without Contrast IMPRESSION: No lung masses or nodules. The abnormality on chest x-ray is due to overlapping normal structures and requires no further evaluation. Coronary artery calcifications. Small mediastinal lymph nodes. Multiple hepatic cysts. Electronically Signed: Lamin Mcdonald MD at 2:21 EDT , Service support ,
--- NOTE | 2019-12-18 02:37 | ED.VISSUMM ---
- ER Visit Summary Date of Service: 12/18/19 Chief Complaint: Palpitations History of Present Illness: The patient is a [address] Amaro and Dr. Gaspar. Patient has a history of paroxysmal atrial fibrillation. He is on Xarelto. He reports that he is had palpitations for the past 3 weeks. States that his Coreg was increased from 12.5 to 25 mg twice daily. He was started on amiodarone and 6 days ago they had him double his dose. He is taking 200 mg twice daily. He reports that despite this he continues to have palpitations. States that this is constant. However, it bothers him much worse at night when he lays down and he can actually feel his heart beating irregularly. Patient denies any chest pain. He denies dyspnea on exertion. He denies orthopnea or PND. Physical Examination: Vitals: Stable. Afebrile. General: Well-nourished and well-developed. Head: Normocephalic atraumatic. Neck: Supple, no lymphadenopathy. No JVD. Nontender. Cardiovascular: Irregularly irregular rhythm with 2 out of 6 systolic murmur Respiratory: No respiratory distress. Clear to auscultation bilaterally. Abdominal: Soft, nontender, nondistended, normal bowel sounds. No guarding, rebound, or peritoneal signs. Back: Nontender. Extremities: Nontender, no edema. Skin: Normal color, no rash. Neurologic: Alert and oriented ?3. Cranial nerves II through XII are intact. Normal strength and sensation. Psych: Normal affect. Test Results: EKG is A. fib at 97 with a bifascicular block. Is unchanged from July 2018 other than at that time he with a sinus bradycardia at 55. CBC is normal. Chem-7 shows a BUN of 20 and glucose of 114. TSH is elevated at 7.61. However his free T4 is normal. Magnesium is normal. Troponin is less than 0.015. Clinical Impression(s) from Imaging Studies Chest X-Ray 12/18/19 01:01 IMPRESSION: No acute cardiopulmonary disease. 4 cm density left lung base of uncertain clinical significance. Recommend PA and lateral chest in 1 month or correlation with noncontrast CT chest. Electronically Signed: Lamin Mcdonald MD at 1:30 EDT , Service support , Chest CT 12/18/19 01:42 IMPRESSION: No lung masses or nodules. The abnormality on chest x-ray is due to overlapping normal structures and requires no further evaluation. Coronary artery calcifications. Small mediastinal lymph nodes. Multiple hepatic cysts. Electronically Signed: Lamin Mcdonald MD at 2:21 EDT , Service support , Emergency Department Course and Treatment: Patient's heart rate is ranged from the 70s to the 90s while here. His blood pressure is elevated. His most recent pressure is 170/107. Treatment Plan: At this time I feel that the patient is stable for outpatient follow-up for further control of his atrial fibrillation. The patient is comfortable with this plan as well. When asked specifically what is different about this tonight he is just nervous that he is still in atrial fibrillation despite the increase in his dose of amiodarone. He is instructed to contact Dr. Amaro's office in the morning. Return to the emergency department for any worsening symptoms. Disposition: To home in improved and stable condition. Impression: 1. Atrial fibrillation. 2. Hypertension. 3. Coagulopathy on Xarelto. This note was generated with [employer] dictation software. It may contain incorrect words, spelling, and punctuation that were not noted in review of the chart prior to signing ED Disposition - Plan for ED Patient: Instructions: ED AFIB Referrals: Mainor Amaro MD [STAFF PHYSICIAN] - Keep Lona appointment Additional Instructions: Speak with Dr. Amaro's office in the morning about further treatment of your atrial fibrillation and blood pressure.
--- NOTE | 2019-12-18 02:51 | ED.RN ---
PT EDUCATED ON WRITTEN AND VERBAL DISCHARGE INSTRUCTIONS. PT VERBALIZES UNDERSTANDING AND DENIES ANY FURTHER QUESTIONS. PT TO FOLLOW UP WITH DR. ARAGON TOMORROW. PT IV D/C AND COVERED WITH 2X2 GAUZE AND PAPER TAPE. DR. ACE OF BP. PT CLEARED FOR D/C PER DR. ELISE. PT DRESSES SELF AND CALLS FOR A RIDE HOME.
== END 2019-12-18 02:57 | disposition home or self-care (01) ==
LOC: ED 01:05
PROVIDERS: Emergency Provider Emergency Medicine; PCP Family Medicine
DX: I48.91 Unspecified atrial fibrillation (principal); I10 Essential (primary) hypertension; Z79.01 Long term (current) use of anticoagulants
CPT/HCPCS: 71045; 71250; 80048; 83735; 84439; 84443; 84484; 85025; 93005; 99285; A4216

== ENCOUNTER → 2020-01-15 11:09 | Outpatient (CLI) | payer MEDICARE, SELFPAY ==
[2019-12-18 00:35] VITALS: BMI 34.4
[2020-01-15 14:22] LABS: Thyroid Stim Hormone (TSH) 4.87 uIU/mL (0.358-3.74)
== END ==
PROVIDERS: PCP Family Medicine; Visit Provider Family Medicine
DX: R79.89 Other specified abnormal findings of blood chemistry (principal); I10 Essential (primary) hypertension
CPT/HCPCS: 36415; 84443

== ENCOUNTER → 2020-02-03 07:21 | Outpatient (CLI) | payer MEDICARE, SELFPAY ==
[2019-12-18 00:35] VITALS: BMI 34.4
[2020-02-03 08:02] LABS: AST(SGOT) 26 U/L (15-37); Alanine Aminotransfer ALT/SGPT 43 U/L (16-61); Alkaline Phosphatase 66 U/L (45-117); Bilirubin, Direct 0.25 mg/dL (0.00-0.30); Cholesterol 124 mg/dL (200); Globulin 3.7 g/dL (2.2-4.2); High Density Lipoprotein 37 mg/dL; Protein, Total 7.7 g/dL (6.4-8.2); Triglycerides 93 mg/dL; Very Low Density Lipoprotein 19 mg/dL (5-40)
[2020-02-03 08:10] LABS: Free T3 2.3 pg/mL (2.18-3.98); T4 Free Direct 1.11 ng/dL (0.76-1.46); Thyroid Stim Hormone (TSH) 5.61 uIU/mL (0.358-3.74)
== END ==
PROVIDERS: Physician Assistant Medical; PCP Family Medicine; Referring Provider Internal Medicine Cardiovascular Disease; Visit Provider Internal Medicine Cardiovascular Disease
DX: I48.0 Paroxysmal atrial fibrillation (principal); E78.00 Pure hypercholesterolemia, unspecified; E78.2 Mixed hyperlipidemia
CPT/HCPCS: 36415; 80061; 80076; 84439; 84443; 84481

== ENCOUNTER → 2020-03-15 07:45 | Outpatient (CLI) | payer MEDICARE, SELFPAY ==
[2019-12-18 00:35] VITALS: BMI 34.4
== END ==
PROVIDERS: PCP Family Medicine; Referring Provider Family Medicine; Visit Provider Family Medicine
DX: E03.9 Hypothyroidism, unspecified (principal)
CPT/HCPCS: 36415; 84443

== ENCOUNTER 2020-03-25 23:38 | Emergency (ER) | payer MEDICARE, SELFPAY ==
[2019-12-18 00:35] VITALS: BMI 34.4
[2020-03-25 23:39] VITALS: BP 138/72; PULSE 90; RESP 18; TEMP 37.1; O2SAT 97; BMI 33.0
--- NOTE | 2020-03-25 23:57 | RAD_ITS ---
STUDY: X-RAY CHEST REASON FOR EXAM: Male, 79 years old. Cough, shortness of breath. TECHNIQUE: Frontal view COMPARISON: None. FINDINGS: The lungs are clear and expanded. There is no demonstrated pleural abnormality. Normal size heart. Normal mediastinum and charlotte. Normal visualized pulmonary arteries. Normal visualized aortic arch and descending thoracic aorta. Normal visualized thoracic spine. Normal visualized ribs, clavicles, and shoulders. There is no demonstrated abnormality of the visualized soft tissue structures of the upper abdomen. RAD/Chest 1 View (Portable) IMPRESSION: Normal x-ray examination of the chest. Electronically Signed: Arvin Flynn MD at 1:10 EDT , Service support ,
[2020-03-26 00:53] LABS: Absolute Lymphocyte Count 0.84 X10^3/uL (0.83-4.51); Absolute Neutrophil Count 3.3 X10^3/uL (2.0-7.7); Basophil# 0.02 X10^3/uL; Basophil% 0.4 % (0-1); Eosinophil# 0.04 X10^3/uL; Eosinophils% 0.9 % (0-5); Hematocrit 39.9 % (40-54); Hemoglobin 13.1 g/dL (13.0-16.5); Lymphocyte # 0.84 X10^3/ul (4.0); Lymphocyte % 18.1 % (19-41); Mean Corp Hgb Conc 32.8 g/dL (32-36); Mean Corpuscular Hgb 29.1 pg (27.0-32.0); Mean Corpuscular Volume 88.7 fL (80-94); Mean Platelet Vol. 10.1 fl (6.2-12.0); Monocyte# 0.43 X10^3/uL; Monocyte% 9.3 % (0-10); NRBC Flagged by Analyzer 0 % (0-5); Neutrophil # 3.26 X10^3/uL (2.7-7.7); Neutrophil % 70.4 % (47-70); Platelet Count 156 K/mm3 (150-450); RBC Distribution Width CV 13.3 % (11.6-14.6); RBC Distribution Width SD 43.4 fl (35.1-43.9); White Blood Count 4.6 K/mm3 (4.4-11.0)
[2020-03-26 01:00] VITALS: PULSE 90; RESP 18
[2020-03-26] MEDS: Albuterol 2.5 MG/3 ML VIAL.NEB. INHALATION ×2 (01:00→01:11)
[2020-03-26 01:10] LABS: AST(SGOT) 40 U/L (15-37); Alanine Aminotransfer ALT/SGPT 44 U/L (16-61); Albumin, Serum 3.8 g/dL (3.2-5.0); Alkaline Phosphatase 62 U/L (45-117); Anion Gap 3 (5-15); BUN 30 mg/dL (7-18); BUN/Creat Ratio 20.7 RATIO (10-20); Calcium,Total 8.9 mg/dL (8.5-10.1); Chloride 107 mmol/L (98-107); Creatinine, Serum 1.45 mg/dL (0.70-1.30); EST Glomerular Filtration Rate 50 mL/min (>60); Est Glom Filt Rate - Afr Amer 61 mL/min (>60); Estimated Creatinine Clearance 44.05 ml/min; Globulin 3.8 g/dL (2.2-4.2); Glucose 135 mg/dL (74-106); Potassium 3.4 mmol/L (3.5-5.1); Protein, Total 7.6 g/dL (6.4-8.2); Sodium Level 140 mmol/L (136-145)
--- NOTE | 2020-03-26 01:14 | CPS ---
pt chetan tx well-albuterol x 2 given
--- NOTE | 2020-03-26 01:17 | ED.VIS.GEN ---
History of Present Illness Chief Complaint: Cough Narrative: Patient presents with persistent cough. He was placed on azithromycin and now he is on amoxicillin for an upper respiratory infection, he did have COVID testing about a week ago but he does not know the results. He has no fever chills or any shortness of breath. He is worried is the persistent cough that keeps him up at night. Past Medical History - Allergies and Home Meds Allergies/Adverse Reactions: Allergies No Known Drug Allergies Allergy (Unknown, Verified 03/25/20 23:42) Other Primary Care Physician: Jadiel Gaspar MD [Primary Care Provider] - Past Medical History: - - Reviewed at the bedside with the patient Surgical History: no surgical history Smoking Status: Never smoker Review of Systems All systems negative except as indicated General: Denies: Fever Cardiovascular: Denies: Chest pain Respiratory: Reports: Cough. Denies: Dyspnea, Sputum Gastrointestinal: Denies: Abdominal pain, Nausea Musculoskeletal: Denies: Myalgias Skin: Denies: Rash Neurological: Denies: Headache, Weakness Psych: Denies: Depression Endocrine: Denies: Polyuria Allergy: Denies: Swelling of the mouth Physical Exam Vital Signs/Narrative: Vital Signs Temp Pulse Resp BP Pulse Ox 03/26/20 01:00 90 18 03/25/20 23:39 98.7 F 90 18 138/72 H 97 General: Well nourished, Well developed ENT: Moist mucous membranes Cardiovascular: Regular rate, Regular rhythm Respiratory: - - Some coarse breath sounds but otherwise unremarkable auscultation, he is speaking in full sentences with no respiratory distress Abdomen: Soft, Nontender Back: Normal Inspection Extremities: Nontender, No edema Skin: Normal color Neurological: Alert Psychological: Normal affect Diagnostic/Tx/Re-eval - Medical Decision Making Patient has a normal emergency department work-up, he is oxygenating well. He feels well, I will give him an inhaler for home otherwise he can be discharged. I did repeat a COVID test however I do not have the results as of yet. Told that if he worsens at all he needs to return. ED Disposition - Plan for ED Patient: Disposition: Home or Assisted Living Diagnosis: Cough, Upper respiratory infection Instructions: ED Upper Resp Infec Abx Tx Prescriptions: Albuterol IH (ProAir) [Proair Hfa (SP)Vent Pts] 1 puff INHALATION Q4H PRN PRN #1 inhaler PRN Reason: Cough Transmission Status: Pending to [id number] Referrals: Jadiel Gaspar MD [Primary Care Provider] - 3-5 Days
[2020-03-26 01:31] VITALS: BP 117/81; PULSE 89; RESP 18; O2SAT 95
== END 2020-03-26 01:52 | disposition home or self-care (01) ==
PROVIDERS: Emergency Provider Emergency Medicine; PCP Family Medicine
DX: R05 Cough (principal); J06.9 Acute upper respiratory infection, unspecified
CPT/HCPCS: 71045; 80053; 85025; 87635; 94640; 99283; U0003

== ENCOUNTER → 2020-04-13 08:17 | Outpatient (CLI) | payer MEDICARE, SELFPAY ==
[2019-12-18 00:35] VITALS: BMI 34.4
[2020-03-25 23:39] VITALS: BMI 33.0
--- NOTE | 2020-04-13 08:18 | ECHOD_ITS ---
Reason For Study: Atrial Fib-Flutter Procedure This was a 2D Doppler, Color Flow transthoracic echocardiogram. The exam was of adequate technical quality. Exam performed in department. Left Ventricle Normal LV size. Mild concentric left ventricular hypertrophy. Left ventricular systolic function is normal. The estimated ejection fraction is 65 %. There is evidence of diastolic dysfunction. No regional wall motion abnormalities noted. Right Ventricle Normal RV size. Normal systolic function. Atria The left atrium is moderately to severely enlarged. The right atrium is moderately enlarged. No doppler evidence for ASD. Mitral Valve There is no mitral annular calcification. Normal mitral valve. Mild (1+) mitral valve insufficiency. Tricuspid Valve Normal tricuspid valve. Mild to moderate (1-2+) tricuspid valve insufficiency. Right ventricular systolic pressure estimated to be 44 mmHg. Aortic Valve Trisinus/trileaflet aortic valve. Mild focal aortic valve calcification. Pulmonic Valve The pulmonic valve is not well visualized. Mild (1+) pulmonic valve insufficiency. Great Vessels Normal sized aortic root. Pericardium/Pleural No pericardial effusion. MMode/2D Measurements & Calculations LVIDd: 4.8 cm IVSd: 1.3 cm Ao root diam: 3.2 cm LVIDs: 3.1 cm LVPWd: 1.4 cm RVDd: 4.3 cm FS: 36.5 % LAV(MOD-bp): 75.7 ml LA A4 area: 24.6 cm2 LA dimension(2D): 4.5 cm LAV(MOD-bp) Indexed: 34.5 ml/m2 LAV(MOD-sp2): 76.5 ml LAV(MOD-sp4): 74.2 ml RA A4 area: 29.3 cm2 Time Measurements MV dec time: 0.14 sec Doppler Measurements & Calculations MV E max dillan: 113.3 cm/sec Lat Peak E' Dillan: 8.1 cm/sec MV V2 max: 127.6 cm/sec E/E' lat: 14.0 MV max P.5 mmHg MV V2 mean: 54.7 cm/sec MV mean P.6 mmHg MV V2 VTI: 25.8 cm MV P1/2t max dillan: 127.6 cm/sec Ao V2 max: 105.7 cm/sec AI max dillan: 370.1 cm/sec MV P1/2t: 71.9 msec Ao max P.5 mmHg AI max P.8 mmHg MV dec slope: 519.4 cm/sec2 AI dec slope: 157.7 cm/sec2 AI P1/2t: 687.5 msec MVA(P1/2t): 3.1 cm2 LV V1 max: 99.5 cm/sec PA V2 max: 79.9 cm/sec PI end-d dillan: 105.0 cm/sec LV V1 max P.0 mmHg TR max dillan: 321.3 cm/sec TR max P.3 mmHg Interpretation Summary Left ventricular systolic function is normal. The estimated ejection fraction is 65 %. Mild concentric left ventricular hypertrophy. The left atrium is moderately to severely enlarged. The right atrium is moderately enlarged. Mild (1+) mitral valve insufficiency. Mild to moderate (1-2+) tricuspid valve insufficiency. Mild focal aortic valve calcification. Mild (1+) pulmonic valve insufficiency. Right ventricular systolic pressure estimated to be 44 mmHg. There is evidence of diastolic dysfunction. Ordering Physician: Mainor Amaro Referring Physician: Jadiel Gaspar Performed By: Spike Pope RCS
== END ==
PROVIDERS: PCP Family Medicine; Referring Provider Internal Medicine Cardiovascular Disease; Visit Provider Internal Medicine Cardiovascular Disease
DX: I48.0 Paroxysmal atrial fibrillation (principal); I47.1 Supraventricular tachycardia; I25.10 Atherosclerotic heart disease of native coronary artery without angina pectoris
CPT/HCPCS: 93306

== ENCOUNTER 2020-09-20 10:39 | Emergency (ER) | payer MEDICARE, SELFPAY ==
[2020-06-10 13:02] VITALS: BMI 32.6
[2020-09-20 10:41] VITALS: BP 159/50; PULSE 55; RESP 15; TEMP 36.2; O2SAT 99; BMI 33.5
--- NOTE | 2020-09-20 10:54 | CT_ITS ---
STUDY: CT CERVICAL SPINE WITHOUT CONTRAST REASON FOR EXAM: Male, 80 years old. FELL AND HIT HEAD. LAC TO RIGHT SIDE OF HEAD RADIATION DOSAGE (If Supplied By Facility): CTDIvol = ( 26.16 ) mGy, DLP = ( 547.08 ) mGycm TECHNIQUE: High resolution transaxial imaging was performed without contrast material. Sagittal and coronal images were reconstructed. Individualized dose optimization techniques were used for this CT. COMPARISON: None FINDINGS: Normal craniovertebral junction. There are degenerative changes of the anterior atlantoaxial articulation. Normal odontoid process. There is straightening of the normal cervical lordosis. Normal vertebral bodies and posterior osseous elements. C2-3: Normal endplates. Normal disc height and morphology. Normal central canal and intervertebral neuroforamina. C3-4: Moderate degree of disc space narrowing. Spondylosis. Uncovertebral arthrosis and facet joint osteoarthritis and hypertrophy. Moderate degree of bilateral neural foraminal stenosis worse on the right side. C4-5: Moderate degree of disc space narrowing. Spondylosis. Uncovertebral arthrosis and facet joint osteoarthropathy and hypertrophy worse on the left side with a moderate left neural foraminal stenosis. C5-6: Marked degree of disc space narrowing and disc degeneration. Facet joint osteoarthritis and hypertrophy. Bilateral neural foraminal stenosis. C6-7: Moderate degree of disc space narrowing and disc degeneration. Spondylosis. Mild degree of bilateral neural foraminal stenosis. C7-T1: Normal endplates. Normal disc height and morphology. Normal central canal and intervertebral neuroforamina. Atherosclerotic calcification of the carotid bifurcations. CT/Spine Cervical without Contras IMPRESSION: Multilevel degenerative changes, as described above. Electronically Signed: Jason Oliver MD at 11:21 EST , Service support ,
--- NOTE | 2020-09-20 11:06 | CT_ITS ---
STUDY: CT BRAIN WITHOUT CONTRAST REASON FOR EXAM: Male, 80 years old. FELL AND HIT HEAD. LAC TO RIGHT SIDE OF HEAD RADIATION DOSAGE (If Supplied By Facility): CTDIvol = ( 44.99 ) mGy, DLP = ( 779.24 ) mGycm TECHNIQUE: Transaxial CT imaging of the brain was performed without administration of intravenous contrast material. Individualized dose optimization techniques were used for this CT. COMPARISON: Comparison is made with prior study dated 09/26/2009. FINDINGS: Soft tissue laceration and scalp hematoma overlying the right frontal temporal parietal bone. Normal calvarium. There is mild cerebral atrophy with widening of the extra-axial spaces and ventricular dilatation. There are areas of decreased attenuation within the white matter tracts of the supratentorial brain, consistent with microvascular disease changes. Normal basal ganglia and thalami. Normal brainstem. Normal cerebellum. There is no intracranial hemorrhage. There are no findings of an acute ischemic infarction. Atherosclerotic calcification of the cavernous portions of the internal carotid arteries bilaterally. Normal visualized paranasal sinuses. CT/Brain/Head without Contrast IMPRESSION: Chronic involutional changes of the brain. Laceration of the skull overlying the right temporal frontal parietal bone. Electronically Signed: Jason Oliver MD at 11:29 EST , Service support ,
--- NOTE | 2020-09-20 11:25 | ED.VIS.FALL ---
History of Present Illness Chief Complaint: Fall Narrative: Patient presenting for evaluation secondary to fall. Patient prior to arrival suffered a mechanical fall. He struck his face on the sidewalk. He reports that he potentially may have had some loss of consciousness. Patient suffered a laceration in the right eyebrow. His tetanus status is not currently up-to-date. Patient is on Xarelto secondary to a history of A. fib. He denies any visual changes numbness weakness nausea or vomiting. He denies any other injuries. Pain is mild, bleeding was controlled with pressure. Past Medical History - Allergies and Home Meds Allergies/Adverse Reactions: Allergies No Known Drug Allergies Allergy (Unknown, Verified 09/20/20 10:40) Other Primary Care Physician: Jadiel Gaspar MD [Primary Care Provider] - Prior records reviewed: Yes Past Medical History: - - Atrial fibrillation on anticoagulation Surgical History: no surgical history Lives: With Family Smoking Status: Former smoker Alcohol: None Drugs: None Review of Systems All systems negative except as indicated General: Denies: Chills, Fever, Sweats Eyes: Denies: Visual changes - bilaterally, Diplopia ENT: Denies: Rhinorrhea, Sore throat Cardiovascular: Denies: Chest pain, Palpitations Respiratory: Denies: Dyspnea, Cough, Dyspnea on exertion Gastrointestinal: Denies: Abdominal pain, Nausea, Vomiting, Diarrhea, Melena, Hematochezia Genitourinary: Denies: Dysuria, Hematuria, Frequency Musculoskeletal: Denies: Back pain, Extremity Pain Skin: Reports: Wounds Neurological: Reports: Headache Physical Exam Vital Signs/Narrative: Vital Signs Temp Pulse Resp BP Pulse Ox 09/20/20 10:41 97.2 F L 55 L 15 159/50 H 99 Inital Vital Signs reviewed: Yes General: Well nourished, Well developed Head: Normocephalic, - - Stellate eyebrow laceration measuring probably a total of 5cm Eyes: Perrl, EOMI ENT: TM's clear, No hemotympanum or drainage, No trauma Neck: Nontender, Full ROM. Negative for: Spinal Tenderness, Paraspinal Tenderness Cardiovascular: Regular rate, Regular rhythm, No murmurs Respiratory: No distress, CTA bilaterally, Chest nontender Abdomen: Soft, Nontender, Nondistended, Normal bowel sounds Back: Nontender Skin: Normal color, No rash Neurological: Alert, Oriented x3, Cranial nerves II-XII grossly intact, Normal Strength, Normal Sensation Psychological: Normal affect Diagnostic/Tx/Re-eval Clinical Impression(s) from Imaging Studies Cervical Spine CT 09/20/20 10:54 IMPRESSION: Multilevel degenerative changes, as described above. Electronically Signed: Jason Oliver MD at 11:21 EST , Service support , Brain CT 09/20/20 11:06 IMPRESSION: Chronic involutional changes of the brain. Laceration of the skull overlying the right temporal frontal parietal bone. Electronically Signed: Jason Oliver MD at 11:29 EST , Service support , - Medical Decision Making Patient presented secondary to a fall on anticoagulation. CT imaging of the brain and cervical spine per radiology found to be negative. Patient's tetanus status was updated. Patient's eyebrow laceration was briskly bleeding in the emergency department. It was addressed as noted in the procedure note with good hemostasis. Patient is stable after suture repair. A follow-up with primary care in 5 days for suture removal. Procedures Procedure(s): Wound was copiously irrigated with 250 cc of sterile saline. It was injected with 2% lidocaine with epinephrine. There was still active bleeding, but thorough exploration did not seem to show any evidence of foreign materials. Wound was then addressed for closure. #9 running sutures were placed along the longest portion of the wound. 5-0 nylon suture was utilized. Then the stellate portion was closed with 2 simple interrupted sutures. There was good hemostasis following this. Patient tolerated this well. ED Disposition - Plan for ED Patient: Disposition: Home or Assisted Living Diagnosis: Forehead laceration Instructions: ED Laceration, Face: Stitches or Tape Referrals: Jadiel Gaspar MD [Primary Care Provider] - 5 Days for suture removal
[2020-09-20] MEDS: Diphth,Pertuss(Acell),Tet Vac 0.5 ML Vial IM (12:02)
[2020-09-20 13:35] VITALS: BP 174/89; PULSE 56; RESP 17
== END 2020-09-20 13:35 | disposition home or self-care (01) ==
PROVIDERS: Emergency Provider Emergency Medicine; PCP Family Medicine
DX: S01.81XA Laceration without foreign body of other part of head, initial encounter (principal); I48.91 Unspecified atrial fibrillation; Z87.891 Personal history of nicotine dependence; W19.XXXA Unspecified fall, initial encounter; Z79.02 Long term (current) use of antithrombotics/antiplatelets
CPT/HCPCS: 12013; 70450; 72125; 90715; 96372; 99285

== ENCOUNTER → 2020-10-13 11:58 | Outpatient (CLI) | payer MEDICARE, SELFPAY ==
[2020-10-13 10:49] VITALS: BMI 32.9
== END ==
PROVIDERS: PCP Family Medicine; Referring Provider Nurse Practitioner Family; Visit Provider Nurse Practitioner Family
DX: T14.8XXA Other injury of unspecified body region, initial encounter (principal); Z91.81 History of falling
CPT/HCPCS: 87070; 87075; 87205

== ENCOUNTER → 2020-12-13 07:57 | Outpatient (CLI) | payer MEDICARE, SELFPAY ==
[2020-12-09 10:04] VITALS: BMI 34.1
[2020-12-13 10:50] LABS: Anion Gap 3 (5-15); BUN 26 mg/dL (7-18); BUN/Creat Ratio 24.1 RATIO (10-20); Calcium,Total 9.3 mg/dL (8.5-10.1); Chloride 104 mmol/L (98-107); Cholesterol 141 mg/dL (200); Creatinine, Serum 1.08 mg/dL (0.70-1.30); EST Glomerular Filtration Rate 70 mL/min (>60); Est Glom Filt Rate - Afr Amer 85 mL/min (>60); Glucose 104 mg/dL (74-106); High Density Lipoprotein 37 mg/dL; Potassium 4.3 mmol/L (3.5-5.1); Sodium Level 138 mmol/L (136-145); Thyroid Stim Hormone (TSH) 2.17 uIU/mL (0.358-3.74); Triglycerides 164 mg/dL; Very Low Density Lipoprotein 33 mg/dL (5-40)
== END ==
PROVIDERS: PCP Family Medicine; Referring Provider Family Medicine; Visit Provider Family Medicine
DX: I10 Essential (primary) hypertension (principal); I48.91 Unspecified atrial fibrillation
CPT/HCPCS: 36415; 80048; 80061; 84443

== ENCOUNTER 2020-12-31 13:30 | Outpatient (RCR) | payer MEDICARE, SELFPAY ==
[2020-12-09 10:04] VITALS: BMI 34.1
--- NOTE | 2020-12-20 09:16 | HP.PTEVAL_ITS ---
Patient's Visit Information JOSEPH KUO is a 80 year old M referred to Physical Therapy by Dr. Jadiel Gaspar MD with a diagnosis of L knee pain. Date of Evaluation: 12/20/20 Physical Therapist: Frantz Campbell DPT - Visit Plan Frequency: 2x /Week Duration: 4 Weeks Plan: 1) start with TKE and flexion with self over pressure 2) AP mobs grade III/IV working on TKE. 3) Stretching of HS, quad, hip flexor and piriformis. 4) may work on edema with ice/vaso if needed. - Subjective Pt. is here today for his initial evaluation with diagnosis of R knee pain. Pt. reports going to [employer] tournament and has had L knee pain since. He reports m ost pain at medial aspect of L knee. Pt. reprots pain has not changed much over the last 3 weeks. He reports the swelling in his knee has reduced over the past few weeks, but still notced some swelling compared to R knee. Pt. reports no sepcific mech, but felt that his pain got worse a few days after bowling. Pt. has increased pain with walking and increased pain after sustained sitting/sleeping, with intially getting up. No N/T in either LE. Pt. reprots no weakness. Pain with ascending/descending steps. Pt. reports overall being stiff, trouble with putting socks on and bending over. 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 He is hopeful to reduce his symptoms in order to get back to all recreational and work activities without limitations. - Pain L knee Pain Intensity (Out of 10): 3 Pain Intensity Range: 1, 6 Comment: medial joint line - Objective POSTURE: Pt. has general flexed posture. He has slight wt. shift to R side in stance, lack TKE in stance as well. PALPATION: Pt. has pain at medial joint line, not much pain at MCL, patellar tendon and no posterior pain. Pt. has 3 cm difference in circumfirence L to R at mid patella. NEURO: Pt. has normal sensation and DTR of BLEs of both patella and achilles. ROM: ACTIVE ROM: R knee 0-0-128deg. L knee 0-5-110deg. PROM: L knee 0-0-115deg. TIghtness noted at both end range flexion and extension. Pt. is very tight throughout his hamstrings, external rotators and hip flexors. B hips: 5 deg of IR bilaterally and 40 deg of hip ER bilaterally. MMT: ankle/knee 5/5 throughout bilaterally. R hip- flexion 4/5, abd 4/5, ext 4/5. L hip- flexion 4/5, abd 4/5, ext 4/5. Core strength: poor. GAIT: Pt. has slight flexed posture with gait. He has increased in lateral translation Bilat, but has good L knee ROM throughout gait cycle. He does reports slight click in his L knee durign end phase of swing (at medial side). STAIRS: Pt. ascends without issues with 1 HR, descending has mild increase in symptoms during L loaded descending. - Special Tests L Knee Esther - Meniscus: Negative L Knee Disco Test - Meniscus: Negative L Knee Ruel - ACL: Negative L Knee Posterior Drawer - PCL: Negative L Knee Valgus - MCL: Negative Comments: mild discomfort with Yoel - Goals Goal 1:: LTG: Pt. to be I with HEP. Goal Time Frame: 4-6 Weeks Goal 2:: STG: Pt. to walk with 0-2/10 pain in L knee for unlimited distances. Goal Time Frame: 2-4 Weeks Goal 3:: LTG: Pt. to be able to squat to chair with normal mechanics without increase in L knee pain. Goal Time Frame: 4-6 Weeks Goal 4:: LTG: pt. to negotiate steps with 1 HR with reciprocal pattern without increase in L knee pain. Goal Time Frame: 4-6 Weeks Goal 5:: STG: Pt. to have 0-0-128deg of L knee ROM without increase in syptioms. Goal Time Frame: 2-4 Weeks Goal 6:: LTG: Pt. to have no girth difference between knees at mid patella indicating reduced edema. Goal Time Frame: 4-6 Weeks - Rehabilitation Potential Physical Therapy Diagnosis: Pt. has signs and symptoms consistent with L knee pain. Pt. has some limited mobility, with increased edema in his L knee. He has discomfort with end range over pressures, squating, and descending steps. He did have marked improvement today with stretching and ROM. Pt. would benefit from PT to work on ROM, progressing end range extension and flexion allowing for increased tolerance with all functional and recreational activities. Rehabilitation Potential: Excellent - Anticipated Interventions Patient/Client Instruction: Educate patient on: Condition, Plan of Care, Risk Factors, Benefits of Fitness Program For the Purpose of:: To facilitate caregiver knowledge, To improve self management, To prevent re-injury, To improve ability to perform tasks related to life management, To improve tolerance to ADL's Therapeutic Exercise to Include: Strength training, Power training, Postural training, Flexibilty training, Gait and locomotor training, Passive ROM, Active ROM For the Purpose of:: To decrease pain, To decrease swelling/inflammation, To increase ROM, To improve nutrient delivery to tissue, To increase oxygenation perfusion, To improve muscle performance and motor function Manual Therapy Techniques to Include: Mobilization For the Purpose of:: To decrease pain, To decrease swelling/inflammation, To increase ROM Thank you for the opportunity to evaluate your patient. For Medicare and Medicare HMO plans, please review the plan of care and approve it. It will need to be FAXED BACK to us at [phone] for Medicare purposes. For Medicare only, by signing this I certify the plan of care. Please let me know if there are questions or concerns regarding this plan of care. Physician Signature: Date:
--- NOTE | 2021-01-03 09:35 | HP.PTREVAL_ITS ---
Dr. Jadiel Gaspar MD, It has been my pleasure to treat JOSEPH KUO over the last 3 visits for L knee pain. Please see the progress note below for an update on the physical therapy plan of care! Subjective: Pt. reports overall I am doing much better.' PT. reports occassional soreness, but not much. He has been able to get back to [employer] without issues. He reports being HEP compliant. Objective/Function: Pt. given the above exercises as HEP. Pt. reports no pain post PT. Pt. is to again complete exercises on his own and follow up with PT if needed. ROM normal without increase in symptoms, tightness noted in B hips. MMT 5-/5 throughout BLEs. Pt. has slight flexion during gait pattern and methodical pattern noted. Pt. reports no pain with walking. Swelling fully reduced today. Plan Plan: Pt. to trial exercises on own and follow up in 2-3 weeks if needed. If I do not see him during this time frame I will DC back to physician. Goals Goal 1:: LTG: Pt. to be I with HEP. Goal Time Frame: 4-6 Weeks Goal Progress: Goal Met Goal 2:: STG: Pt. to walk with 0-2/10 pain in L knee for unlimited distances. Goal Time Frame: 2-4 Weeks Goal Progress: Goal Met Goal 3:: LTG: Pt. to be able to squat to chair with normal mechanics without increase in L knee pain. Goal Time Frame: 4-6 Weeks Goal Progress: Goal Met Goal 4:: LTG: pt. to negotiate steps with 1 HR with reciprocal pattern without increase in L knee pain. Goal Time Frame: 4-6 Weeks Goal Progress: Goal Met Goal 5:: STG: Pt. to have 0-0-128deg of L knee ROM without increase in syptioms. Goal Time Frame: 2-4 Weeks Goal Progress: Progressing Goal 6:: LTG: Pt. to have no girth difference between knees at mid patella indicating reduced edema. Goal Time Frame: 4-6 Weeks Goal Progress: Goal Met Anticipated Interventions Patient/Client Instruction: Educate patient on: Condition, Plan of Care, Risk Factors, Benefits of Fitness Program For the Purpose of:: To facilitate caregiver knowledge, To improve self management, To prevent re-injury, To improve ability to perform tasks related to life management, To improve tolerance to ADL's Therapeutic Exercise to Include: Strength training, Power training, Postural training, Flexibilty training, Gait and locomotor training, Passive ROM, Active ROM For the Purpose of:: To decrease pain, To decrease swelling/inflammation, To increase ROM, To improve nutrient delivery to tissue, To increase oxygenation perfusion, To improve muscle performance and motor function Manual Therapy Techniques to Include: Mobilization For the Purpose of:: To decrease pain, To decrease swelling/inflammation, To increase ROM Please do not hesitate to contact me at [phone] by phone or if you have questions or concerns regarding this new plan of care! Sincerely, BETTE MartinezT
--- NOTE | 2021-02-09 11:21 | HP.PT.NRP ---
JOSEPH KUO was seen in my office for initial evaluation on 12/20/20. The following Plan of Care was established for this patient: Initial Frequency: 2x /Week Initial Duration: 4 Weeks Patient/Client Instruction: Educate patient on: Condition, Plan of Care, Risk Factors, Benefits of Fitness Program For the Purpose of:: To facilitate caregiver knowledge, To improve self management, To prevent re-injury, To improve ability to perform tasks related to life management, To improve tolerance to ADL's Therapeutic Exercise to Include: Strength training, Power training, Postural training, Flexibilty training, Gait and locomotor training, Passive ROM, Active ROM For the Purpose of:: To decrease pain, To decrease swelling/inflammation, To increase ROM, To improve nutrient delivery to tissue, To increase oxygenation perfusion, To improve muscle performance and motor function Manual Therapy Techniques to Include: Mobilization For the Purpose of:: To decrease pain, To decrease swelling/inflammation, To increase ROM This patient was last seen in our office 12/31/20. Pertinent comments regarding their Physical therapy will appear below: Pt. was seen in PT for his L knee pain. At our last visit he was doing significantly better. He was to trial his exercises on his own for 2-3 weeks and follow up with PT if needed. He has not been seen in ~6 weeks and will be DC from PT at this point in time. At this point I will be discontinuing this patient from physical therapy. I would be happy to see this patient again in the future if found appropriate by the physician. Thank you! Frantz Campbell DPT
== END 2020-12-31 19:00 | disposition home or self-care (01) ==
LOC: PT 13:30
PROVIDERS: PCP Family Medicine; Referring Provider Family Medicine; Visit Provider Family Medicine
DX: M25.569 Pain in unspecified knee (principal)
CPT/HCPCS: 97110; 97161

== ENCOUNTER → 2021-01-07 13:54 | Outpatient (CLI) | payer MEDICARE, SELFPAY ==
[2020-12-09 10:04] VITALS: BMI 34.1
--- NOTE | 2021-01-07 13:58 | CDU_ITS ---
Reason For Study: Stenosis Rt. Velocities/BP Lt. Velocities/BP Prox CCA 90/19 cm/sec. Prox CCA 108/18 cm/sec. Mid CCA 86/10 cm/sec. Mid CCA 111/22 cm/sec. Dist CCA 66/16 cm/sec. Dist CCA 78/14 cm/sec. Prox ICA 111/24 cm/sec. Prox ICA 129/30 cm/sec. Mid ICA 137/32 cm/sec. Mid ICA 100/30 cm/sec. Dist ICA 76/27 cm/sec. Dist ICA 67/23 cm/sec. Rt. ICA/CCA = 1.6. Lt. ICA/CCA = 1.2. Prox ECA 107/10 cm/sec. Prox ECA 92/14 cm/sec. Rt. Vert. 29/10 cm/sec. Lt. Vert. 34/8 cm/sec. Right Extracranial There is heterogeneous, irregular atherosclerotic plaque noted in the right common carotid artery. There is heterogeneous, irregular atherosclerotic plaque noted in the right internal carotid artery. There is intimal thickening but no significant atherosclerotic plaque noted in the right external carotid artery. Antegrade flow is noted in the right vertebral artery. Left Extracranial There is heterogeneous, irregular atherosclerotic plaque noted in the left common carotid artery. There is heterogeneous, irregular atherosclerotic plaque noted in the left internal carotid artery. There is heterogeneous, irregular atherosclerotic plaque noted in the left external carotid artery. Antegrade flow is noted in the left vertebral artery. Procedure Carotid Duplex [id number]. This is a Carotid Duplex examination using B-mode, color flow and specral Doppler. Exam performed in department. VL/Carotid Duplex Ultrasound Interpretation Summary Moderate (50-69%) stenosis right extracranial internal carotid. The degree of s tenosis in the left internal carotid artery appears to approach 50%. Flow within the vertebral fercho calin is antegrade bilaterally. Ordering Physician: Jadiel Gaspar Referring Physician: Jadiel Gaspar Performed By: Corinne Lemons, LARY, RVT
== END ==
PROVIDERS: PCP Family Medicine; Referring Provider Family Medicine; Visit Provider Family Medicine
DX: I65.29 Occlusion and stenosis of unspecified carotid artery (principal)
CPT/HCPCS: 93880

== ENCOUNTER → 2021-03-15 12:35 | Outpatient (CLI) | payer MEDICARE, SELFPAY ==
[2020-12-09 10:04] VITALS: BMI 34.1
--- NOTE | 2021-03-15 12:38 | RAD_ITS ---
STUDY: X-RAY - LEFT HAND REASON FOR EXAM: Male, 80 years old. PAIN TECHNIQUE: 3 view(s) of the hand. COMPARISON: None. FINDINGS: Normal radiocarpal articulation. Normal distal radioulnar joint. Normal visualized carpal bones. Normal carpal articulations Normal carpometacarpal articulation of the thumb. Normal second through fifth carpometacarpal joints. Normal metacarpi. Normal metacarpophalangeal joint of the thumb. Normal interphalangeal joint of the thumb. Normal proximal and distal phalanges of the thumb. Normal metacarpophalangeal joints of the second through fifth fingers. There is diffuse articular joint space narrowing of the proximal and distal interphalangeal joints of the second through fifth fingers, but without erosive changes or periarticular soft tissue swelling. Normal phalanges of the second through fifth fingers. The soft tissue structures are unremarkable. RAD/Hand Min 3 Views IMPRESSION: 1. No fracture, dislocation, radiopaque foreign body. 2. Mild interphalangeal joint arthrosis. Electronically Signed: Joe Kent MD at 15:44 EDT Tel , Service support ,
--- NOTE | 2021-03-15 12:38 | RAD_ITS ---
STUDY: X-RAY - LEFT KNEE REASON FOR EXAM: Male, 80 years old. KNEE TECHNIQUE: 4 view(s) of the knee. COMPARISON: None. FINDINGS: Normal visualized distal femur. Normal visualized proximal tibia and fibula. Normal proximal tibiofibular articulation. Normal medial femorotibial compartment. Normal lateral femorotibial compartment. Normal patellofemoral articulation. There is a moderate volume joint effusion. The soft tissue structures are unremarkable. RAD/Knee 4 or More Views IMPRESSION: Effusion, as described above. MRI would be useful. Electronically Signed: Joe Kent MD at 15:43 EDT Tel , Service support ,
== END ==
PROVIDERS: PCP Family Medicine; Referring Provider Family Medicine; Visit Provider Family Medicine
DX: M25.569 Pain in unspecified knee (principal); M79.642 Pain in left hand
CPT/HCPCS: 73130; 73564

== ENCOUNTER → 2021-03-28 13:38 | Outpatient (CLI) | payer MEDICARE, SELFPAY ==
[2020-12-09 10:04] VITALS: BMI 34.1
--- NOTE | 2021-03-28 13:47 | VDLE_ITS ---
Reason For Study: SWELLING RIGHT LEFT CFV is compressible, spontaneous, phasic, GSV is normal. competent and demonstrates normal CFV is compressible, spontaneous, phasic, augmentation. competent, and demonstrates normal Procedure augmentation. Exam performed in department. FV is compressible, spontaneous, phasic, A preliminary report was called and/or faxed competent and demonstrates normal to DR GASPAR. augmentation. POP V is compressible, spontaneous, phasic, competent and demonstrates normal augmentation. T/P Trunk is compressible. PTV is compressible. LT PerV is compressible. VL/Venous Duplex US, Unilateral Interpretation Summary Deep veins of the left lower extremity are patent and compressible segmentally. There is no evidence of left lower extremity deep vein thrombosis. Valvular competence appears intac t within the proximal deep venous system on the left . The left great saphenous vein appears patent a nd compressible segmentally. Ordering Physician: Jadiel Gaspar Referring Physician: Jadiel Gaspar Performed By: Kat Mondragon, RDCS, RVT
== END ==
PROVIDERS: PCP Family Medicine; Referring Provider Family Medicine; Visit Provider Family Medicine
DX: M79.89 Other specified soft tissue disorders (principal)
CPT/HCPCS: 93971

== ENCOUNTER 2021-04-02 09:24 | Emergency (ER) | payer MEDICARE, SELFPAY ==
[2020-12-09 10:04] VITALS: BMI 34.1
[2021-04-02 09:26] VITALS: BP 142/74; PULSE 56; RESP 16; TEMP 36.6; O2SAT 96; BMI 34.1
--- NOTE | 2021-04-02 09:59 | RAD_ITS ---
STUDY: X-RAY CHEST REASON FOR EXAM: Male, 80 years old. CP TECHNIQUE: Single AP portable view of the chest. COMPARISON: Chest x-ray 03/26/[address] 12/18/2019 FINDINGS: The lungs are clear and expanded. There is no demonstrated pleural abnormality. Normal size heart. Normal mediastinum and [place]. Normal visualized pulmonary arteries. Normal visualized aortic arch and descending thoracic aorta. There is mild atherosclerosis of the aortic arch. Multilevel degenerative endplate changes with osteophytes noted. Normal visualized ribs, clavicles, and shoulders. There is no demonstrated abnormality of the visualized soft tissue structures of the upper abdomen. RAD/Chest 1 View (Portable) IMPRESSION: Normal x-ray examination of the chest. Electronically Signed: Kristina Cespedes MD at 10:51 EDT , Service support ,
--- NOTE | 2021-04-02 09:59 | EKG12_ITS ---
Test Reason : DYSRHYTHMIA Blood Pressure : / mmHG Vent. Rate : 052 BPM Atrial Rate : 052 BPM P-R Int : 160 ms QRS Dur : 138 ms QT Int : 482 ms P-R-T Axes : 057 -33 005 degrees QTc Int : 448 ms Sinus bradycardia with Premature atrial complexes Left axis deviation Right bundle branch block Abnormal ECG Confirmed by MAHESH CLEMENTE, SHAUN ([id number]), web editor MEERA AWAD ([id number]) on 04/07/2021 1:00:55 PM Referred By: SIERRA Confirmed By:SHAUN ARAGON MD
--- NOTE | 2021-04-02 09:59 | VDLE_ITS ---
Reason For Study: pain Procedure LEFT This is a venous duplex using B-mode, color GSV is normal. flow and spectral Doppler. CFV is compressible, spontaneous, phasic, Exam performed portable in ED. competent, and demonstrates normal The exam was abbreviated due to the COVID 19 augmentation. protocol. FV is compressible, spontaneous, phasic, The exam was diagnostic. competent and demonstrates normal A preliminary report was called and/or faxed augmentation. to Dr. Medley. POP V is compressible, spontaneous, phasic, competent and demonstrates normal augmentation. T/P Trunk is compressible. PTV is compressible. LT PerV is compressible. Heterogeneous area behind the knee and extending into the calf. Area measures 2.18 x 2.29 cm in short. Area is too large to measure in long. Area is nonvascular. VL/Venous Duplex US, Unilateral Interpretation Summary There is no evidence of left lower extremity deep vein thrombosis. Left great s aphenous vein appears patent and compressible segmentally. Too large to measure left popliteal space heterogenous structure, non-vascular. Suspicious for a large Camara'scyst, clinical correlati on would be appropriate Abreviated Covid 19 protocol. Ordering Physician: Magdalene Medley Performed By: Kalin Duenas RVT
--- NOTE | 2021-04-02 10:21 | EDS_ITS ---
HPI History of Present Illness Chief Complaint: Lower Extremity Injury Informant: patient Onset/Context/Timing Onset: Weeks (1.5 weeks) Context: Gradual Onset Current Severity: Moderate Maximum Severity: Moderate Narrative Narrative: Patient presents with left lower leg pain and swelling. Patient states he initially noted left knee pain about a week and a half ago. It progressed down into the calf. He was seen by his PCP last Sunday. He was sent to the ER for an ultrasound which revealed no evidence of DVT. Patient was given a prescription for Keflex. Patient presents back to the ER today with continued and worsened pain. He states he has a mild intermittent sensation in his chest that he refuses to call chest pain. He denies shortness of breath, fever, chills. Patient is currently on Xarelto secondary to a history of A. fib. He underwent cardiac ablation last fall. 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 Musculoskeletal chest pain ADAMA (obstructive sleep apnea) Paroxysmal atrial fibrillation Paroxysmal atrial tachycardia Premature atrial contractions Premature ventricular contraction Skin cancer Skin ulcer of forehead with fat layer exposed Ventricular ectopy Home Medications aspirin 81 mg PO DAILY@0800 03/19/17 [History Last Taken 03/17/17] losartan 100 mg tablet 100 mg PO DAILY 07/10/18 [History Last Taken Unknown] nitroglycerin 0.4 mg sublingual tablet 0.4 mg SUBLINGUAL Q5M PRN #25 tab 11/11/18 [Rx Last Taken Unknown] albuterol sulfate 1 puff INHALATION Q4H PRN PRN #1 inhaler 03/26/20 [Rx Last Taken Unknown] cetirizine 10 mg tablet 5 mg PO DAILY 06/10/20 [History Last Taken Unknown] omeprazole 20 mg tablet,delayed release 20 mg PO DAILY 06/10/20 [History Last Taken Unknown] tadalafil 5 mg tablet 5 mg PO DAILY PRN 06/10/20 [History Last Taken Unknown] triamterene 37.5 mg-hydrochlorothiazide 25 mg tablet 1 tab PO DAILY 06/10/20 [History Last Taken Unknown] carvedilol 25 mg tablet 25 mg PO BID #180 tab 12/06/20 [Rx Last Taken Unknown] rivaroxaban 20 mg tablet 20 mg PO DAILY #90 tab 03/28/21 [Rx Last Taken Unknown] hydrocodone-acetaminophen 1 tab PO Q6H PRN 3 Days #10 tab 04/02/21 [Rx Last Taken Unknown] Allergy/AdvReac Type Severity Reaction Status Date / Time No Known Drug Allergies Allergy Unknown Other Verified 04/02/21 09:26 Family History Father Lung cancer Surgical History History of left heart catheterization History of radiofrequency ablation procedure for cardiac arrhythmia (~04/28/20) Social History Smoking Status: Former smoker alcohol intake: former substance use type: does not use caffeine: Yes Type: coffee what type of physical activity do you participate in: none seatbelt use: sometimes do you feel safe at home: Yes additional social history: Does take Aspirin daily Does not take Ibuprofen ROS ROS ED Constitutional Constitutional ED: Denies chills or fever(s) Eyes Eyes: Denies change in vision ENT ENT ED: Denies sore throat Cardiovascular Cardiovascular: Reports chest pain; Denies palpitations or racing heartbeat Respiratory/Chest Respiratory/Chest: Denies cough or dyspnea Gastrointestinal Gastrointestinal: Denies abdominal pain, diarrhea, nausea or vomiting Genitourinary Genitourinary ED: Denies dysuria Musculoskeletal Musculoskeletal: Reports arthralgias and myalgias; Denies back pain Integumentary Denies rash Neurologic Neurologic: Denies headache(s) or weakness Psychiatric Psychiatric: Denies anxiety or depression Endocrine Endocrinology: Denies polydipsia or polyuria Allergic/Immunologic Allergic/Immunologic ED: Denies urticaria EXAM Physical Exam Const Vital Signs: 04/02/21 09:26 04/02/21 13:35 Temperature 97.9 F Temperature Source Temporal Pulse Rate 56 L 56 L Respiratory Rate 16 14 Blood Pressure 142/74 H 143/81 H Blood Pressure Mean 96 101 Pulse Ox 96 100 Oxygen Delivery Method Room Air Room Air Positive well nourished and well developed General Appearance ED: well developed HEENT Reports normocephalic and head/scalp atraumatic Eyes PERRL and EOMs intact bilaterally Neck supple Chest Wall inspection of chest normal and palpation of chest normal Resp normal respiratory effort and clear to auscultation bilaterally Cardio regular rate and regular rhythm GI normal to inspection, nondistended, normoactive bowel sounds and non-tender Palpation: soft Back/Spine no CVA tenderness Extremity Extremity Narrative: 2+ edema left lower extremity. Tenderness over the posterior calf. Chronic venous skin changes noted to the skin but no acute eryt jeannette or open wounds. Strong distal pulses. No focal joint tenderness. Neuro oriented x3 and no sensory deficits noted Sensorium / Orientation: alert Motor Exam: strength 5/5 throughout Psych mental status grossly normal MDM MDM MDM Narrative Medical decision making narrative: Labs and venous ultrasound of the left leg are obtained. Lab Data Attestation: I reviewed the patient's lab results. Labs: Laboratory Results - last 24 hr 04/02/21 04/02/21 04/02/21 10:10 10:10 10:10 WBC 5.4 RBC 3.77 L Hgb 11.0 L Hct 34.4 L MCV 91.2 MCH 29.2 MCHC 32.0 RDW Std Deviation 41.1 RDW Coeff of Lisa 12.3 Plt Count 172 MPV 10.4 Immature Gran % (Auto) 0.200 Neut % (Auto) 63.8 Lymph % (Auto) 23.7 [place] % (Auto) 9.7 Eos % (Auto) 2.2 Baso % (Auto) 0.4 Absolute Neuts (auto) 3.4 Absolute Lymphs (auto) 1.27 Nucleated RBC % 0 D-Dimer Quant (PE/DVT) 1.74 H* Sodium 136 Potassium 4.4 Chloride 102 Carbon Dioxide 29.0 Anion Gap 5 BUN 32 H Creatinine 1.11 Estim Creat Clear Calc 56.63 Est GFR (MDRD) Af Amer 82 Est GFR (MDRD) Non-Af 68 BUN/Creatinine Ratio 28.8 H Glucose 106 Calcium 9.0 Radiography Diagnostic Testing: Radiology Impression Chest X-Ray 04/02/21 09:59 IMPRESSION: Normal x-ray examination of the chest. Electronically Signed: Kristina Cespedes MD at 10:51 EDT , Service support , Lower Extremity CT 04/02/21 11:52 IMPRESSION: 1. Complex partially enhancing cystic collection of the medial calf likely representing a complicated popliteal cyst. Potential hemorrhage/blood product within the cyst versus superimposed infected Camara''s cyst versus cyst rupture. 2. Calf superficial venous thrombosis. Incomplete evaluation of the deep venous system. Lower extremity duplex ultrasound suggested. 3. Joint effusion. Electronically Signed: John Bae MD ([place]) at 14:27 EDT , Service support , EKG Initial EKG: Attestation: I personally reviewed and interpreted this EKG as follows: Interpretation: Sinus Bradycardia (Sinus bradycardia at 52 bpm. Right bundle branch block noted. 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 No evidence of DVT. There was a heterogeneous mass in the proximal calf where the patient was painful. He stated this could be a cyst or focal hemorrhage. CT scan with IV contrast was obtained. This does appear to be consistent with a popliteal cyst with potential hemorrhagic component. Test results discussed with patient and at bedside. He will be written for analgesics and will be referred to orthopedics for follow-up. I did advise him that he can stop the Keflex he is currently on. Discharge Plan Triage Chief Complaint: Lower Extremity Injury ED Provider: Magdalene Medley Dx/Rx/DC Orders Clinical Impression: Popliteal cyst Instructions: Cyst Popliteal Prescriptions: New hydrocodone-acetaminophen 5-325 mg tablet 1 tab PO Q6H PRN (Reason: pain) 3 Days Qty: 10 RF: 0 No Action losartan 100 mg tablet 100 mg PO DAILY RF: 0 aspirin 81 MG tablet,chewable 81 mg PO DAILY@0800 RF: 0 albuterol sulfate 1 PUFF inhaler 1 puff INHALATION Q4H PRN PRN (Reason: Cough) Qty: 1 RF: 0 nitroglycerin 0.4 mg tablet, sublingual 0.4 mg SUBLINGUAL Q5M PRN (Reason: Chest Pain) Qty: 25 RF: 1 cetirizine 10 mg tablet 5 mg PO DAILY RF: 0 triamterene-hydrochlorothiazid 37.5-25 mg tablet 1 tab PO DAILY RF: 0 omeprazole 20 mg tablet,delayed release (DR/EC) 20 mg PO DAILY RF: 0 tadalafil 5 mg tablet 5 mg PO DAILY PRN (Reason: ed) RF: 0 carvedilol 25 mg tablet 25 mg PO BID Qty: 180 RF: 3 Xarelto 20 mg tablet 20 mg PO DAILY Qty: 90 RF: 4 Primary Care Provider: Jadiel Gaspar Referrals: Shukri Gomez DO [STAFF PHYSICIAN] - 5-7 Days Jadiel Gaspar MD [Primary Care Provider] - Disposition Disposition: Home, Self Care
[2021-04-02 10:30] LABS: Absolute Lymphocyte Count 1.27 X10^3/uL (0.83-4.51); Absolute Neutrophil Count 3.4 X10^3/uL (2.0-7.7); Basophil# 0.02 X10^3/uL; Basophil% 0.4 % (0-1); Eosinophil# 0.12 X10^3/uL; Eosinophils% 2.2 % (0-5); Hematocrit 34.4 % (40-54); Lymphocyte # 1.27 X10^3/ul (0.83-4.51); Lymphocyte % 23.7 % (19-41); Mean Corpuscular Hgb 29.2 pg (27.0-32.0); Mean Corpuscular Volume 91.2 fL (80-94); Mean Platelet Vol. 10.4 fl (6.2-12.0); Monocyte# 0.52 X10^3/uL; Monocyte% 9.7 % (0-10); NRBC Flagged by Analyzer 0 % (0-5); Neutrophil # 3.41 X10^3/uL (2.7-7.7); Neutrophil % 63.8 % (47-70); Platelet Count 172 K/mm3 (150-450); RBC Distribution Width CV 12.3 % (11.6-14.6); RBC Distribution Width SD 41.1 fl (35.1-43.9); Red Blood Count 3.77 M/mm3 (4.6-6.2); White Blood Count 5.4 K/mm3 (4.4-11.0)
[2021-04-02 10:34] LABS: Anion Gap 5 (5-15); BUN 32 mg/dL (7-18); BUN/Creat Ratio 28.8 RATIO (10-20); Chloride 102 mmol/L (98-107); Creatinine, Serum 1.11 mg/dL (0.70-1.30); EST Glomerular Filtration Rate 68 mL/min (>60); Est Glom Filt Rate - Afr Amer 82 mL/min (>60); Estimated Creatinine Clearance 56.63 ml/min; Glucose 106 mg/dL (74-106); Potassium 4.4 mmol/L (3.5-5.1); Sodium Level 136 mmol/L (136-145)
[2021-04-02 10:37] LABS: D-Dimer Quantitative (DVT/PE) 1.74 FEU/ug/m (0.27-0.49)
--- NOTE | 2021-04-02 11:52 | CT_ITS ---
EXAM: CT LEFT LOWER EXTREMITY WITH INTRAVENOUS CONTRAST CLINICAL INDICATION: left calf mass TECHNIQUE: Helically acquired images were obtained of the left lower extremity with intravenous contrast. 2-D reformats were performed by the technologist. This CT exam was performed using one or more of the following dose reduction techniques: automated exposure control, adjustment of the mA and/or kV according to patient size, and/or use of iterative reconstruction technique. This report was created using [employer] technology. COMPARISON: None. FINDINGS: BONES/JOINTS: Unremarkable. No acute fracture. No subluxation. Normal alignment. Preservation of the joint space. Small joint effusion. No sclerotic or destructive changes. SOFT TISSUES: Arising between the medial gastrocnemius muscle and semimembranosus tendon (with a narrow neck), there is a moderately complex collection extending inferiorly anterior to the medial gastrocnemius muscle. Moderate enhancement of the cyst wall with some layering hyperdensity or enhancement (image 64 series 3). The collection measures approximately 4.8 x 2.0 x 10.9 cm (AP by transverse by craniocaudal). Mild edema along the inferior margin extends lateral and medial to the gastrocnemius muscle suggesting potential reactive edema versus rupture. VASCULATURE: In the lower saphenous/superficial veins, there are filling defects compatible with superficial venous thrombosis. The deep venous system cannot be completely evaluated due to lack of insufficient venous enhancement. CT/Extremity Lower WITH Contrast IMPRESSION: 1. Complex partially enhancing cystic collection of the medial calf likely representing a complicated popliteal cyst. Potential hemorrhage/blood product within the cyst versus superimposed infected Camara''s cyst versus cyst rupture. 2. Calf superficial venous thrombosis. Incomplete evaluation of the deep venous system. Lower extremity duplex ultrasound suggested. 3. Joint effusion. Electronically Signed: John Bae MD ([place]) at 14:27 EDT , Service support ,
[2021-04-02 13:35] VITALS: BP 143/81; PULSE 56; RESP 14; O2SAT 100
[2021-04-02 15:09] VITALS: BP 168/75; PULSE 58; RESP 13; O2SAT 99
[2021-04-02] MEDS: HYDROcodone Bitartrate/Apap 5/325 Tablet PO (15:11)
== END 2021-04-02 15:16 | disposition home or self-care (01) ==
PROVIDERS: Emergency Provider Emergency Medicine; PCP Family Medicine
DX: M71.22 Synovial cyst of popliteal space [Baker], left knee (principal); I48.0 Paroxysmal atrial fibrillation; I10 Essential (primary) hypertension; I25.119 Atherosclerotic heart disease of native coronary artery with unspecified angina pectoris; M50.30 Other cervical disc degeneration, unspecified cervical region; Z79.82 Long term (current) use of aspirin; Z79.01 Long term (current) use of anticoagulants; Z87.891 Personal history of nicotine dependence
CPT/HCPCS: 71045; 73701; 80048; 85025; 85379; 93005; 93971; 99285; Q9967; A4216

== ENCOUNTER 2021-11-21 07:30 | Outpatient (CLI) | payer MEDICARE, SELFPAY ==
[2021-11-21 10:15] LABS: Microalbumin,Random Urine 27.1 mg/L (NO RANGE EST.); Microalbumin:Creatinine Ratio 29.2 mg/g CRE (<30 mg/g CRE)
[2021-11-21 10:42] LABS: AST(SGOT) 21 U/L (15-37); Alanine Aminotransfer ALT/SGPT 26 U/L (16-61); Albumin, Serum 3.8 g/dL (3.2-5.0); Alkaline Phosphatase 56 U/L (45-117); Anion Gap 5 (5-15); BUN 27 mg/dL (7-18); Calcium,Total 9.4 mg/dL (8.5-10.1); Chloride 105 mmol/L (98-107); Cholesterol 119 mg/dL (200); Creatinine, Serum 1.04 mg/dL (0.70-1.30); EST Glomerular Filtration Rate 73 mL/min (>60); Est Glom Filt Rate - Afr Amer 89 mL/min (>60); Globulin 3.7 g/dL (2.2-4.2); Glucose 104 mg/dL (74-106); High Density Lipoprotein 35 mg/dL; Potassium 3.9 mmol/L (3.5-5.1); Protein, Total 7.5 g/dL (6.4-8.2); Sodium Level 138 mmol/L (136-145); Thyroid Stim Hormone (TSH) 1.02 uIU/mL (0.358-3.74); Triglycerides 140 mg/dL; Very Low Density Lipoprotein 28 mg/dL (5-40)
[2021-12-12 11:21] LABS: Absolute Lymphocyte Count 1.29 X10^3/uL (0.83-4.51); Absolute Neutrophil Count 3.5 X10^3/uL (2.0-7.7); Basophil# 0.04 X10^3/uL; Basophil% 0.7 % (0-1); Eosinophil# 0.11 X10^3/uL; Hematocrit 40.3 % (40-54); Hemoglobin 13.4 g/dL (13.0-16.5); Lymphocyte # 1.29 X10^3/ul (0.83-4.51); Lymphocyte % 23.5 % (19-41); Mean Corp Hgb Conc 33.3 g/dL (32-36); Mean Corpuscular Hgb 29.5 pg (27.0-32.0); Mean Corpuscular Volume 88.8 fL (80-94); Mean Platelet Vol. 10.5 fl (6.2-12.0); Monocyte% 9.1 % (0-10); NRBC Flagged by Analyzer 0 % (0-5); Neutrophil # 3.54 X10^3/uL (2.7-7.7); Neutrophil % 64.3 % (47-70); Platelet Count 166 K/mm3 (150-450); RBC Distribution Width CV 12.2 % (11.6-14.6); RBC Distribution Width SD 39.5 fl (35.1-43.9); Red Blood Count 4.54 M/mm3 (4.6-6.2); White Blood Count 5.5 K/mm3 (4.4-11.0)
[2021-12-12 11:44] LABS: Anion Gap 3 (5-15); BUN 27 mg/dL (7-18); Calcium,Total 9.1 mg/dL (8.5-10.1); Chloride 104 mmol/L (98-107); Creatinine, Serum 1.08 mg/dL (0.70-1.30); EST Glomerular Filtration Rate 70 mL/min (>60); Est Glom Filt Rate - Afr Amer 85 mL/min (>60); Glucose 108 mg/dL (74-106); Magnesium 1.9 mg/dL (1.6-2.6); Potassium 4.4 mmol/L (3.5-5.1); Sodium Level 137 mmol/L (136-145)
[2021-12-12 12:13] LABS: PSA,Total - Annual Screen 0.52 ng/mL (0.00-4.00)
== END 2021-11-21 23:59 | disposition home or self-care (01) ==
LOC: MTLAB 07:31
PROVIDERS: Family Medicine; Internal Medicine Cardiovascular Disease; PCP Family Medicine; Referring Provider Nurse Practitioner Family; Visit Provider Nurse Practitioner Family
DX: I10 Essential (primary) hypertension (principal)
CPT/HCPCS: 36415; 80048; 80053; 80061; 82043; 82570; 83735; 84153; 84443; 85025; G0103

== ENCOUNTER 2021-12-12 10:41 | Outpatient (CLI) | payer MEDICARE, SELFPAY | END 2021-12-12 23:59 | disposition home or self-care (01) | PROVIDERS: PCP Family Medicine; Referring Provider Internal Medicine Cardiovascular Disease; Visit Provider Internal Medicine Cardiovascular Disease | DX: Z00.00 Encounter for general adult medical examination without abnormal findings (principal) ==

== ENCOUNTER → 2021-12-26 | Outpatient (CLI) | payer MEDICARE, SELFPAY | END | disposition home or self-care (01) | LOC: MFPLAB 16:53 | PROVIDERS: PCP Family Medicine; Visit Provider Nurse Practitioner Family | DX: J06.9 Acute upper respiratory infection, unspecified (principal) | CPT/HCPCS: 87635; U0003; U0005 ==

== ENCOUNTER 2022-01-12 03:56 | Emergency (ER) | payer MEDICARE, SELFPAY ==
[2022-01-12] VITALS (9 sets, daily range): BP systolic 112–165; BP diastolic 70–108; PULSE 52–133; RESP 15–18; TEMP 36.6; O2SAT 94–99; BMI 34.7
--- NOTE | 2022-01-12 04:10 | ED.VIS.CHEST ---
HPI <Dr. Kain Hatch DO - Last Filed: 01/12/22 06:03> History of Present Illness Chief Complaint: Chest Pain Informant: patient Onset/Context/Timing Onset: Today Activity at onset: sudden Timing: Continuous Quality: Positive for Burning and Pressure Location: Substernal Worsened By: Nothing Relieved By: Nothing Associated Symptoms: Positive for Palpitations; Negative for Nausea, Vomiting, Diaphoresis, Dyspnea, Cough, Fever, Lightheadedness and Acid Reflux Narrative Narrative: Patient presents with chest pain and palpitations that began tonight. Patient states he woke up approximately 30 minutes prior to arrival and felt pressure in his chest. Patient describes it as burning and pressure. Patient states he felt his heart racing. Patient states he checked his pulse and it was 140 at home. Patient states he has had similar episodes of this in the past. Patient states it is over the substernal area. Patient states nothing makes it better nothing makes it worse. Patient denies any nausea or vomiting. Patient denies any diaphoresis. Patient denies any shortness of breath or cough. CVD Risk Factors: Positive for Hypertension and Hypercholesterolemia; Negative for Diabetes, Family History 1' </=55 and Smoking PE Risk Factors: Negative for Recent Travel/Surgery, Recent Immobilization, Prior DVT or PE, Cancer and OCP + Smoking + >/=35 PFSH <Dr. Kain Hatch DO - Last Filed: 01/12/22 06:03> [facility] Medical History Abnormal stress test Angina pectoris Arthritis Atherosclerosis of [place] coronary artery of [place] heart without angina pectoris Atrial flutter Bronchitis Contusion of other part of head, sequela DDD (degenerative disc disease), cervical Ectopic cardiac beats HLD (hyperlipidemia) HTN (hypertension) nursing home (current) use of anticoagulants Musculoskeletal chest pain ADAMA (obstructive sleep apnea) Paroxysmal atrial fibrillation Paroxysmal atrial tachycardia Premature atrial contractions Premature ventricular contraction Skin cancer Skin ulcer of forehead with fat layer exposed Ventricular ectopy Home Medications aspirin 81 mg PO DAILY@0800 03/19/17 [History Last Taken 03/17/17] losartan 100 mg tablet 100 mg PO DAILY 07/10/18 [History Last Taken Unknown] cetirizine 10 mg tablet 5 mg PO DAILY 06/10/20 [History Last Taken Unknown] omeprazole 20 mg tablet,delayed release 20 mg PO DAILY 06/10/20 [History Last Taken Unknown] tadalafil 5 mg tablet 5 mg PO DAILY PRN 06/10/20 [History Last Taken Unknown] triamterene 37.5 mg-hydrochlorothiazide 25 mg tablet 1 tab PO DAILY 06/10/20 [History Last Taken Unknown] rivaroxaban 20 mg tablet 20 mg PO DAILY #90 tab 03/28/21 [Rx Last Taken Unknown] acetaminophen 325 mg tablet 650 mg PO ONCE PRN tab 05/19/21 [History Last Taken Unknown] metoprolol tartrate 50 mg tablet 50 mg PO BID #60 tab 11/16/21 [Rx Last Taken Unknown] nitroglycerin 0.4 mg sublingual tablet 0.4 mg SUBLINGUAL Q5M PRN #25 tab 11/17/21 [Rx Last Taken Unknown] Allergy/AdvReac Type Severity Reaction Status Date / Time No Known Drug Allergies Allergy Unknown Other Verified 01/12/22 04:03 Family History Father Lung cancer Surgical History History of left heart catheterization History of radiofrequency ablation procedure for cardiac arrhythmia (~04/28/20) Social History Smoking Status: Former smoker alcohol intake: former substance use type: does not use caffeine: Yes Type: coffee what type of physical activity do you participate in: none seatbelt use: sometimes do you feel safe at home: Yes additional social history: Does take Aspirin daily Does not take Ibuprofen ROS <Dr. Kain Hatch DO - Last Filed: 01/12/22 06:03> ROS ED Constitutional Constitutional ED: Denies chills or fever(s) Eyes Eyes: Denies blurry vision or change in vision ENT ENT ED: Denies rhinorrhea or sore throat Cardiovascular Cardiovascular: Reports chest pain and palpitations Respiratory/Chest Respiratory/Chest: Denies cough or dyspnea Gastrointestinal Gastrointestinal: Denies abdominal pain, nausea or vomiting Genitourinary Genitourinary ED: Denies dysuria or hematuria Musculoskeletal Musculoskeletal: Reports back pain; Denies neck pain Integumentary Denies abscess or rash Neurologic Neurologic: Denies headache(s) or weakness Allergic/Immunologic Allergic/Immunologic ED: Denies mouth swelling or urticaria EXAM <Dr. Kain Hatch, DO - Last Filed: 01/12/22 06:03> Physical Exam Const Vital Signs: 01/12/22 03:56 01/12/22 04:01 01/12/22 04:53 Temperature 97.9 F Temperature Source Oral Pulse Rate 133 H 62 Pulse Rate [1 (Initial Baseline)] Respiratory Rate 18 16 Respiratory Rate [1 (Initial Baseline)] Respiratory Effort Normal Non-Labored Blood Pressure 165/108 H 120/70 Blood Pressure [1 (Initial Baseline)] Blood Pressure Mean 127 86 Pulse Ox 96 95 Oxygen Delivery Method Room Air Room Air Oxygen Delivery Method [1 (Initial Baseline)] Oxygen Flow Rate (L/min) Oxygen Flow Rate (L/min) [1 (Initial Baseline)] 01/12/22 05:00 01/12/22 05:37 01/12/22 05:42 Temperature Temperature Source Pulse Rate 64 68 Pulse Rate [1 (Initial Baseline)] 66 Respiratory Rate 18 16 Respiratory Rate [1 (Initial Baseline)] 15 Respiratory Effort Blood Pressure 128/77 H 141/90 H Blood Pressure [1 (Initial Baseline)] 141/90 H Blood Pressure Mean 94 Pulse Ox 96 99 Oxygen Delivery Method Room Air Nasal Cannula Oxygen Delivery Method [1 (Initial Baseline)] Nasal Cannula Oxygen Flow Rate (L/min) 2 Oxygen Flow Rate (L/min) [1 (Initial Baseline)] 2 01/12/22 05:53 Temperature Temperature Source Pulse Rate Pulse Rate [1 (Initial Baseline)] Respiratory Rate Respiratory Rate [1 (Initial Baseline)] Respiratory Effort Blood Pressure Blood Pressure [1 (Initial Baseline)] Blood Pressure Mean Pulse Ox Oxygen Delivery Method Nasal Cannula Oxygen Delivery Method [1 (Initial Baseline)] Oxygen Flow Rate (L/min) 2 Oxygen Flow Rate (L/min) [1 (Initial Baseline)] Positive well nourished, well developed and obese General Appearance ED: well developed Nutritional Appearance: obese HEENT normocephalic and atraumatic Eyes PERRL and EOMs intact bilaterally Neck supple and no JVD Chest Wall palpation of chest normal Resp normal respiratory effort and clear to auscultation bilaterally Effort and Inspection: Negative for respiratory distress Cardio no murmurs Rate: tachycardic Rhythm: abnormal rhythm irregularly irregular GI normal to inspection, nondistended, normoactive bowel sounds, soft to palpation, non-tender and non-distended Extremity normal to inspection General Extremety ED: Negative for edema or tenderness General Extremity: Negative for edema Neuro oriented x3, CN's II-XII intact bilaterally and no sensory deficits noted Sensorium / Orientation: awake and alert Motor Exam: strength 5/5 throughout Psych mental status grossly normal <Dr. Shukri Maldonado MD - Last Filed: 01/12/22 04:48> Physical Exam Const Vital Signs: 01/12/22 03:56 01/12/22 04:01 01/12/22 04:53 Temperature 97.9 F Temperature Source Oral Pulse Rate 133 H 62 Pulse Rate [1 (Initial Baseline)] Respiratory Rate 18 16 Respiratory Rate [1 (Initial Baseline)] Respiratory Effort Normal Non-Labored Blood Pressure 165/108 H 120/70 Blood Pressure [1 (Initial Baseline)] Blood Pressure Mean 127 86 Pulse Ox 96 95 Oxygen Delivery Method Room Air Room Air Oxygen Delivery Method [1 (Initial Baseline)] Oxygen Flow Rate (L/min) Oxygen Flow Rate (L/min) [1 (Initial Baseline)] 01/12/22 05:00 01/12/22 05:37 01/12/22 05:42 Temperature Temperature Source Pulse Rate 64 68 Pulse Rate [1 (Initial Baseline)] 66 Respiratory Rate 18 16 Respiratory Rate [1 (Initial Baseline)] 15 Respiratory Effort Blood Pressure 128/77 H 141/90 H Blood Pressure [1 (Initial Baseline)] 141/90 H Blood Pressure Mean 94 Pulse Ox 96 99 Oxygen Delivery Method Room Air Nasal Cannula Oxygen Delivery Method [1 (Initial Baseline)] Nasal Cannula Oxygen Flow Rate (L/min) 2 Oxygen Flow Rate (L/min) [1 (Initial Baseline)] 2 01/12/22 05:53 Temperature Temperature Source Pulse Rate Pulse Rate [1 (Initial Baseline)] Respiratory Rate Respiratory Rate [1 (Initial Baseline)] Respiratory Effort Blood Pressure Blood Pressure [1 (Initial Baseline)] Blood Pressure Mean Pulse Ox Oxygen Delivery Method Nasal Cannula Oxygen Delivery Method [1 (Initial Baseline)] Oxygen Flow Rate (L/min) 2 Oxygen Flow Rate (L/min) [1 (Initial Baseline)] MDM <Dr. Kain Hatch DO - Last Filed: 01/12/22 06:03> [facility] Narrative Medical decision making narrative: EKG was obtained. On my interpretation it shows atrial flutter/fibrillation with a rate of 132. There is a right bundle branch block pattern noted. There is left axis deviation of -54. There is left anterior fascicular block pattern noted. QRS interval was slightly prolonged at 134 ms. QTc interval was 459 ms. There are no acute ST or T wave changes. CBC was within normal limits. Comprehensive metabolic profile showed a slightly elevated creatinine 1.41 and BUN of 30. Patient has had similar levels in the past. High-sensitivity troponin was 10. Portable 1 view chest x-ray was obtained. On my interpretation, lung leger are clear. There is normal cardiac silhouette. Bony thorax is normal. There is no acute process noted. Radiologist also interpreted the x-ray and agrees. Patient was given a dose of Cardizem here. Patient's rate improved. Patient felt better after this. Repeat EKG was obtained. On my interpretation it shows atrial flutter with variable block. There is no acute ST or T wave changes. There is still the right bundle branch block and left anterior fascicular block pattern noted. Case was discussed with Dr. Amaro. He recommended cardioversion to get the patient back into a sinus rhythm. Patient was advised of the procedure. Patient was given the opportunity ask any further questions. He had no further questions. Patient was given 50 mg of IV propofol. While the patient was sedated, patient was cardioverted with 200 J of synchronized cardioversion. Patient converted to a sinus rhythm. Patient tolerated the procedure well. Repeat EKG was obtained. On my interpretation, it shows sinus bradycardia with occasional PACs with a rate of 50. There is a right bundle branch block. There is left anterior fascicular block. There are no acute ST or T wave changes. Patient felt better on reevaluation. Patient will be discharged home. Patient was instructed to follow-up with Dr. Amaro in 3 to 5 days. Patient understood and was agreeable with the plan. All questions were answered. Lab Data Attestation: I reviewed the patient's lab results. Labs: Laboratory Results - last 24 hr 01/12/22 01/12/22 04:04 04:04 WBC 5.0 RBC 4.49 L Hgb 13.3 Hct 40.4 MCV 90.0 MCH 29.6 MCHC 32.9 RDW Std Deviation 41.1 RDW Coeff of Lisa 12.5 Plt Count 171 MPV 10.2 Immature Gran % (Auto) 0.200 Neut % (Auto) 57.1 Lymph % (Auto) 32.5 Loving % (Auto) 7.4 Eos % (Auto) 2.2 Baso % (Auto) 0.6 Absolute Neuts (auto) 2.8 Absolute Lymphs (auto) 1.62 Nucleated RBC % 0 Sodium 137 Potassium 3.9 Chloride 102 Carbon Dioxide 29.0 Anion Gap 6 BUN 30 H Creatinine 1.41 H Estim Creat Clear Calc 43.86 Est GFR (MDRD) Af Amer 62 Est GFR (MDRD) Non-Af 52 L BUN/Creatinine Ratio 21.3 H Glucose 115 H Calcium 9.7 Total Bilirubin 0.40 AST 31 ALT 38 Alkaline Phosphatase 56 Troponin I High Sens 10 Total Protein 7.9 Albumin 4.1 Globulin 3.8 Albumin/Globulin Ratio 1.1 Radiography Chest X-Ray - ED: 1 View, Read by ED Physician, Read by Radiologist and No Acute Disease Diagnostic Testing: Clinical Impression(s) from Imaging Studies Chest X-Ray 01/12/22 04:17 IMPRESSION: No significant interval change or acute process. Electronically Signed: Devan Campbell MD at 4:58 EDT , EKG Initial EKG: Attestation: I personally reviewed and interpreted this EKG as follows: Interpretation: No Acute Injury Pattern, Atrial Fibrillation (132), RBBB and LAFB Prior EKG tracings: available for review Prior: Unchanged (12/12/2021) Follow-up EKG: Attestation: I personally reviewed and interpreted this EKG as follows: Interpretation: Atrial Flutter (60), RBBB and LAFB <Dr. Shukri Maldonado MD - Last Filed: 01/12/22 04:48> [facility] Lab Data Labs: Laboratory Results - last 24 hr 01/12/22 01/12/22 04:04 04:04 WBC 5.0 RBC 4.49 L Hgb 13.3 Hct 40.4 MCV 90.0 MCH 29.6 MCHC 32.9 RDW Std Deviation 41.1 RDW Coeff of Lisa 12.5 Plt Count 171 MPV 10.2 Immature Gran % (Auto) 0.200 Neut % (Auto) 57.1 Lymph % (Auto) 32.5 Loving % (Auto) 7.4 Eos % (Auto) 2.2 Baso % (Auto) 0.6 Absolute Neuts (auto) 2.8 Absolute Lymphs (auto) 1.62 Nucleated RBC % 0 Sodium 137 Potassium 3.9 Chloride 102 Carbon Dioxide 29.0 Anion Gap 6 BUN 30 H Creatinine 1.41 H Estim Creat Clear Calc 43.86 Est GFR (MDRD) Af Amer 62 Est GFR (MDRD) Non-Af 52 L BUN/Creatinine Ratio 21.3 H Glucose 115 H Calcium 9.7 Total Bilirubin 0.40 AST 31 ALT 38 Alkaline Phosphatase 56 Troponin I High Sens 10 Total Protein 7.9 Albumin 4.1 Globulin 3.8 Albumin/Globulin Ratio 1.1 Radiography Diagnostic Testing: Clinical Impression(s) from Imaging Studies Chest X-Ray 01/12/22 04:17 IMPRESSION: No significant interval change or acute process. Electronically Signed: Devan Campbell MD at 4:58 EDT , Discharge Plan Triage Chief Complaint: Chest Pain ED Provider: Kain Hatch Dx/Rx/DC Orders Clinical Impression: Atrial flutter, Chest pain Instructions: ED Atrial Flutter Prescriptions: No Action losartan 100 mg tablet 100 mg PO DAILY RF: 0 acetaminophen 325 mg tablet 650 mg PO ONCE PRN (Reason: Pain) RF: 0 nitroglycerin 0.4 mg tablet, sublingual 0.4 mg SUBLINGUAL Q5M PRN (Reason: Chest Pain) Qty: 25 RF: 1 aspirin 81 MG tablet,chewable 81 mg PO DAILY@0800 RF: 0 cetirizine 10 mg tablet 5 mg PO DAILY RF: 0 triamterene-hydrochlorothiazid 37.5-25 mg tablet 1 tab PO DAILY RF: 0 omeprazole 20 mg tablet,delayed release (DR/EC) 20 mg PO DAILY RF: 0 tadalafil 5 mg tablet 5 mg PO DAILY PRN (Reason: ed) RF: 0 Xarelto 20 mg tablet 20 mg PO DAILY Qty: 90 RF: 4 metoprolol tartrate 50 mg tablet 50 mg PO BID Qty: 60 RF: 12 Primary Care Provider: Kenneth Noland Referrals: Kenneth Noland DO [Primary Care Provider] - Mainor Amaro MD [STAFF PHYSICIAN] - 3-5 Days Disposition Disposition: Home, Self Care
--- NOTE | 2022-01-12 04:17 | RAD_ITS ---
STUDY: X-RAY CHEST REASON FOR EXAM: Male, 81 years old. Chest pain TECHNIQUE: 2 AP portable views of the chest. COMPARISON: Previous chest radiographs of 04/02/2021 and 03/26/2020. FINDINGS: The lungs are clear and expanded. There is no demonstrated pleural abnormality. Normal size heart. Normal pulmonary vasculature. Stable mild elongation and calcification of the aortic arch. No hilar enlargement or mediastinal widening. Thoracic degenerative spurring again noted. Normal visualized ribs, clavicles, and shoulders. There is no demonstrated abnormality of the visualized soft tissue structures of the upper abdomen. RAD/Chest 1 View (Portable) IMPRESSION: No significant interval change or acute process. Electronically Signed: Devan Campbell MD at 4:58 EDT ,
--- NOTE | 2022-01-12 04:18 | EKG12_ITS ---
Test Reason : DYSRHYTHMIA Blood Pressure : / mmHG Vent. Rate : 050 BPM Atrial Rate : 050 BPM P-R Int : 162 ms QRS Dur : 134 ms QT Int : 482 ms P-R-T Axes : 092 -40 015 degrees QTc Int : 439 ms Sinus bradycardia with Premature atrial complexes Left axis deviation Right bundle branch block Abnormal ECG Confirmed by MAHESH CLEMENTE, SHAUN ([id number]), index editor MEERA AWAD ([id number]) on 01/16/2022 1:19:59 PM Referred By: ELIZABETH Confirmed By:SHAUN ARAGON MD
[2022-01-12] MEDS: dilTIAZem 25 MG/5 ML Vial IV BOLUS (04:24)
[2022-01-12 04:27] LABS: Absolute Lymphocyte Count 1.62 X10^3/uL (0.83-4.51); Absolute Neutrophil Count 2.8 X10^3/uL (2.0-7.7); Basophil# 0.03 X10^3/uL; Basophil% 0.6 % (0-1); Eosinophil# 0.11 X10^3/uL; Eosinophils% 2.2 % (0-5); Hematocrit 40.4 % (40-54); Hemoglobin 13.3 g/dL (13.0-16.5); Lymphocyte # 1.62 X10^3/ul (0.83-4.51); Lymphocyte % 32.5 % (19-41); Mean Corp Hgb Conc 32.9 g/dL (32-36); Mean Corpuscular Hgb 29.6 pg (27.0-32.0); Mean Platelet Vol. 10.2 fl (6.2-12.0); Monocyte# 0.37 X10^3/uL; Monocyte% 7.4 % (0-10); NRBC Flagged by Analyzer 0 % (0-5); Neutrophil # 2.84 X10^3/uL (2.7-7.7); Neutrophil % 57.1 % (47-70); Platelet Count 171 K/mm3 (150-450); RBC Distribution Width CV 12.5 % (11.6-14.6); RBC Distribution Width SD 41.1 fl (35.1-43.9); Red Blood Count 4.49 M/mm3 (4.6-6.2)
[2022-01-12 04:50] LABS: ALB/GLOB Ratio 1.1 RATIO (0.9-2.4); AST(SGOT) 31 U/L (15-37); Alanine Aminotransfer ALT/SGPT 38 U/L (16-61); Albumin, Serum 4.1 g/dL (3.2-5.0); Alkaline Phosphatase 56 U/L (45-117); Anion Gap 6 (5-15); BUN 30 mg/dL (7-18); BUN/Creat Ratio 21.3 RATIO (10-20); Calcium,Total 9.7 mg/dL (8.5-10.1); Chloride 102 mmol/L (98-107); Creatinine, Serum 1.41 mg/dL (0.70-1.30); EST Glomerular Filtration Rate 52 mL/min (>60); Est Glom Filt Rate - Afr Amer 62 mL/min (>60); Estimated Creatinine Clearance 43.86 ml/min; Globulin 3.8 g/dL (2.2-4.2); Glucose 115 mg/dL (74-106); Potassium 3.9 mmol/L (3.5-5.1); Protein, Total 7.9 g/dL (6.4-8.2); Sodium Level 137 mmol/L (136-145); Troponin-I HS 10 pg/mL (3.0-78.0)
--- NOTE | 2022-01-12 05:00 | EKG12_ITS ---
Test Reason : CP Blood Pressure : / mmHG Vent. Rate : 132 BPM Atrial Rate : 264 BPM P-R Int : 000 ms QRS Dur : 134 ms QT Int : 310 ms P-R-T Axes : 181 -54 000 degrees QTc Int : 459 ms Atrial flutter Right bundle branch block Left anterior fascicular block Bifascicular block Abnormal ECG Confirmed by MAHESH CLEMENTE, SHAUN ([id number]), newspaper editor managing MEERA AWAD ([id number]) on 01/16/2022 1:20:17 PM Referred By: ELIZABETH Confirmed By:SHAUN ARAGON MD
[2022-01-12] MEDS: Propofol 200 MG/20 ML Vial IV BOLUS (05:45)
--- NOTE | 2022-01-12 05:50 | EKG12_ITS ---
Test Reason : REPEAT EKG Blood Pressure : / mmHG Vent. Rate : 060 BPM Atrial Rate : 258 BPM P-R Int : 000 ms QRS Dur : 146 ms QT Int : 452 ms P-R-T Axes : 234 -47 008 degrees QTc Int : 452 ms Atrial flutter with variable A-V block Right bundle branch block Left anterior fascicular block Bifascicular block Abnormal ECG Confirmed by MAHESH CLEMENTE, SHAUN ([id number]), photograph editor MEERA AWAD ([id number]) on 01/16/2022 1:20:30 PM Referred By: ELIZABETH Confirmed By:SHAUN ARAGON MD
== END 2022-01-12 06:17 | disposition home or self-care (01) ==
PROVIDERS: Emergency Provider Emergency Medicine; PCP Family Medicine; Visit Provider Emergency Medicine
DX: I48.92 Unspecified atrial flutter (principal); I48.0 Paroxysmal atrial fibrillation; R07.9 Chest pain, unspecified; I25.10 Atherosclerotic heart disease of native coronary artery without angina pectoris; E66.9 Obesity, unspecified; I10 Essential (primary) hypertension; G47.33 Obstructive sleep apnea (adult) (pediatric); Z79.82 Long term (current) use of aspirin; Z79.899 Other long term (current) drug therapy; Z87.891 Personal history of nicotine dependence
CPT/HCPCS: 71045; 80053; 84484; 85025; 92960; 93005; 96374; 96375; 99285; J7030; A4216

== ENCOUNTER 2022-01-30 17:45 | Emergency (ER) | payer MEDICARE, SELFPAY ==
[2022-01-30] VITALS (8 sets, daily range): BP systolic 109–158; BP diastolic 66–122; PULSE 71–135; RESP 16–20; TEMP 36.6–37.1; O2SAT 93–99; BMI 33.0
--- NOTE | 2022-01-30 18:21 | EKG12_ITS ---
Test Reason : Blood Pressure : / mmHG Vent. Rate : 137 BPM Atrial Rate : 137 BPM P-R Int : 090 ms QRS Dur : 132 ms QT Int : 360 ms P-R-T Axes : 000 267 010 degrees QTc Int : 543 ms Sinus tachycardia with short TN Right bundle branch block Abnormal ECG Confirmed by TOPHER CLEMENTE, EDUARDO ([id number]), industrial editor PANKAJ RODRIGUEZ ([id number]) on 01/31/2022 1:33:36 PM Referred By: ALINA Confirmed By:EDUARDO OBANDO MD
[2022-01-30 18:43] LABS: Absolute Lymphocyte Count 1.36 X10^3/uL (0.83-4.51); Absolute Neutrophil Count 3.6 X10^3/uL (2.0-7.7); Basophil# 0.05 X10^3/uL; Basophil% 0.9 % (0-1); Eosinophil# 0.06 X10^3/uL; Eosinophils% 1.1 % (0-5); Hematocrit 39.8 % (40-54); Hemoglobin 13.1 g/dL (13.0-16.5); Lymphocyte # 1.36 X10^3/ul (0.83-4.51); Mean Corp Hgb Conc 32.9 g/dL (32-36); Mean Corpuscular Hgb 29.2 pg (27.0-32.0); Mean Corpuscular Volume 88.8 fL (80-94); Monocyte# 0.57 X10^3/uL; Monocyte% 10.1 % (0-10); NRBC Flagged by Analyzer 0 % (0-5); Neutrophil # 3.61 X10^3/uL (2.7-7.7); Neutrophil % 63.7 % (47-70); Platelet Count 165 K/mm3 (150-450); RBC Distribution Width CV 12.6 % (11.6-14.6); RBC Distribution Width SD 41.2 fl (35.1-43.9); Red Blood Count 4.48 M/mm3 (4.6-6.2); White Blood Count 5.7 K/mm3 (4.4-11.0)
[2022-01-30] MEDS: fentaNYL 100 MCG/2 ML Ampul 50 MCG IV (18:53)
[2022-01-30] MEDS: Etomidate 20 MG/10 ML Vial 10 MG IV (18:57)
[2022-01-30 18:59] LABS: Anion Gap 7 (5-15); BUN 26 mg/dL (7-18); BUN/Creat Ratio 20.3 RATIO (10-20); Calcium,Total 9.3 mg/dL (8.5-10.1); Chloride 107 mmol/L (98-107); Creatinine, Serum 1.28 mg/dL (0.70-1.30); EST Glomerular Filtration Rate 58 mL/min (>60); Est Glom Filt Rate - Afr Amer 70 mL/min (>60); Estimated Creatinine Clearance 48.32 ml/min; Glucose 124 mg/dL (74-106); Potassium 3.6 mmol/L (3.5-5.1); Sodium Level 140 mmol/L (136-145); Troponin-I HS 49 pg/mL (3.0-78.0)
--- NOTE | 2022-01-30 19:19 | EDS_ITS ---
HPI History of Present Illness Chief Complaint: Palpitations Informant: patient Onset/Context/Timing Onset: Today Quality: Rapid irregular palpitations Location: Chest Current Severity: Moderate Maximum Severity: Moderate Worsened by: Nothing Relieved by: Nothing Associated Symptoms Associated Symptoms: Mild chest discomfort and upper back discomfort. Narrative Narrative: Patient feels like he is back in A. fib, he does not tolerate it, he is anticoagulated long-term, on Xarelto. He had a cardiac ablation but still had episodes of A. fib afterwards and saw his EP physician, at [facility]. He was given the option of a Tikosyn induction or repeat ablation, and he is due to follow-up this coming month again to schedule something and he went into A. fib again this morning. He has had cardioversions for this in the past. He has been functioning well today, he had 1 episode of lightheadedness no near syncope or syncope. No recent leg pain or swelling no history of DVT or PE, no pleuritic discomfort in his chest. 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 Musculoskeletal chest pain ADAMA (obstructive sleep apnea) Paroxysmal atrial fibrillation Paroxysmal atrial tachycardia Premature atrial contractions Premature ventricular contraction Skin cancer Skin ulcer of forehead with fat layer exposed Ventricular ectopy Home Medications aspirin 81 mg PO DAILY@0800 03/19/17 [History Last Taken 03/17/17] losartan 100 mg tablet 100 mg PO DAILY 07/10/18 [History Last Taken Unknown] cetirizine 10 mg tablet 5 mg PO DAILY 06/10/20 [History Last Taken Unknown] omeprazole 20 mg tablet,delayed release 20 mg PO DAILY 06/10/20 [History Last Taken Unknown] tadalafil 5 mg tablet 5 mg PO DAILY PRN 06/10/20 [History Last Taken Unknown] triamterene 37.5 mg-hydrochlorothiazide 25 mg tablet 1 tab PO DAILY 06/10/20 [History Last Taken Unknown] rivaroxaban 20 mg tablet 20 mg PO DAILY #90 tab 03/28/21 [Rx Last Taken Unknown] acetaminophen 325 mg tablet 650 mg PO ONCE PRN tab 05/19/21 [History Last Taken Unknown] metoprolol tartrate 50 mg tablet 50 mg PO BID #60 tab 11/16/21 [Rx Last Taken Unknown] nitroglycerin 0.4 mg sublingual tablet 0.4 mg SUBLINGUAL Q5M PRN #25 tab 11/17/21 [Rx Last Taken Unknown] Allergy/AdvReac Type Severity Reaction Status Date / Time No Known Drug Allergies Allergy Unknown Other Verified 01/30/22 17:46 Family History Father Lung cancer Surgical History History of left heart catheterization History of radiofrequency ablation procedure for cardiac arrhythmia (~04/28/20) Social History Smoking Status: Former smoker alcohol intake: former substance use type: does not use caffeine: Yes Type: coffee what type of physical activity do you participate in: none seatbelt use: sometimes do you feel safe at home: Yes additional social history: Does take Aspirin daily Does not take Ibuprofen ROS ROS ED Constitutional Constitutional ED: Denies chills or fever(s) Eyes Eyes: Denies change in vision or diplopia ENT ENT ED: Denies rhinorrhea or sore throat Cardiovascular Cardiovascular: Reports as per HPI, chest pain, lightheadedness, palpitations and racing heartbeat Respiratory/Chest Respiratory/Chest: Denies cough or dyspnea Gastrointestinal Gastrointestinal: Denies abdominal pain, diarrhea, nausea or vomiting Genitourinary Genitourinary ED: Denies dysuria or hematuria Musculoskeletal Musculoskeletal: Denies back pain or neck pain Integumentary Denies abscess or rash Neurologic Neurologic: Denies headache(s), paresthesias or weakness Psychiatric Psychiatric: Denies anxiety or suicidal thoughts EXAM Physical Exam Const Vital Signs: 01/30/22 17:46 01/30/22 17:51 01/30/22 17:53 Temperature 98.7 F Temperature Source Temporal Pulse Rate 133 H 135 H Pulse Rate [1 (Initial Baseline)] Pulse Rate [2] Respiratory Rate 18 Respiratory Rate [1 (Initial Baseline)] Respiratory Rate [2] Respiratory Effort Normal Non-Labored Blood Pressure 144/122 H Blood Pressure [1 (Initial Baseline)] Blood Pressure [2] Blood Pressure Mean 129 Pulse Ox 93 Oxygen Delivery Method Room Air Oxygen Delivery Method [1 (Initial Baseline)] Oxygen Delivery Method [2] Oxygen Flow Rate (L/min) Oxygen Flow Rate (L/min) [2] 01/30/22 18:50 01/30/22 19:00 01/30/22 19:10 Temperature 98 F Temperature Source Pulse Rate 110 H Pulse Rate [1 (Initial Baseline)] 105 H Pulse Rate [2] 105 H Respiratory Rate 18 Respiratory Rate [1 (Initial Baseline)] 20 H Respiratory Rate [2] 20 H Respiratory Effort Blood Pressure 109/67 Blood Pressure [1 (Initial Baseline)] 139/83 H Blood Pressure [2] 139/83 H Blood Pressure Mean Pulse Ox 95 Oxygen Delivery Method Room Air Nasal Cannula Oxygen Delivery Method [1 (Initial Baseline)] Nasal Cannula Oxygen Delivery Method [2] Nasal Cannula Oxygen Flow Rate (L/min) 3 Oxygen Flow Rate (L/min) [2] 3 Positive well nourished and well developed General Appearance ED: well developed and NAD HEENT Reports moist mucous membranes normocephalic and atraumatic Eyes PERRL and EOMs intact bilaterally Neck full ROM and supple Resp normal respiratory effort and clear to auscultation bilaterally Cardio no murmurs Rate: tachycardic Rhythm: abnormal rhythm irregularly irregular GI non-tender and non-distended Auscultation: normoactive bowel sounds Palpation: soft Back/Spine no CVA tenderness General Back: other FROM Extremity normal to inspection and no calf tenderness General Extremety ED: Negative for edema, pulses abnormal or tenderness General Extremity: Negative for edema or pulses abnormal Neuro oriented x3, CN's II-XII intact bilaterally and no sensory deficits noted Sensorium / Orientation: awake and alert Motor Exam: strength 5/5 throughout Skin no rashes or lesions noted and no wounds MDM MDM MDM Narrative Medical decision making narrative: With this patient in A. fib for 12 hours or so, and fully anticoagulated, medical literature agrees with this patient being a good candidate for urgent cardioversion. Discussed with the patient he is comfortable with that plan, see the procedure note. It progressed without complication and he felt much better with resolution of all symptoms. Troponin is negative, will be discharged to follow-up with his EP seat cover maker as scheduled. Lab Data Attestation: I reviewed the patient's lab results. Labs: Laboratory Results - last 24 hr 01/30/22 01/30/22 18:25 18:25 WBC 5.7 RBC 4.48 L Hgb 13.1 Hct 39.8 L MCV 88.8 MCH 29.2 MCHC 32.9 RDW Std Deviation 41.2 RDW Coeff of Lisa 12.6 Plt Count 165 MPV 11.0 Immature Gran % (Auto) 0.200 Neut % (Auto) 63.7 Lymph % (Auto) 24.0 Bland % (Auto) 10.1 H Eos % (Auto) 1.1 Baso % (Auto) 0.9 Absolute Neuts (auto) 3.6 Absolute Lymphs (auto) 1.36 Nucleated RBC % 0 Sodium 140 Potassium 3.6 Chloride 107 Carbon Dioxide 26.0 Anion Gap 7 BUN 26 H Creatinine 1.28 Estim Creat Clear Calc 48.32 Est GFR (MDRD) Af Amer 70 Est GFR (MDRD) Non-Af 58 L BUN/Creatinine Ratio 20.3 H Glucose 124 H Calcium 9.3 Troponin I High Sens 49 Rhythm Strip Rhythm Strip: A-fib Rate: 140 Ectopy: None EKG Initial EKG: Attestation: I personally reviewed and interpreted this EKG as follows: Comments: Supraventricular tachycardia with RBBB Prior EKG tracings: available for review Follow-up EKG: Attestation: I personally reviewed and interpreted this EKG as follows: Interpretation: Sinus Rhythm, No Acute Injury Pattern, RBBB and LAFB Prior EKG tracings: available for review Prior: Unchanged (Compared with EKG 01/12/2022; change/cardioverted compared with earlier EKG today) Procedures Other Procedures Procedure(s): Electrocardioversion and procedural sedation: After informed consent, patient n.p.o. 5.5 hours, pretreated with fentanyl 50 mcg IV and IV fluids, monitor, suction, capnography, oxygen 2 L nasal cannula set up prior, and respiratory therapist at the bedside during procedure as well as ED RN. I sedated him with etomidate 10 mg IV push, and then cardioverted him with synchronized biphasic DC cardioversion 200 J. Successfully converted to normal sinus rhythm, in the 70s. Repeat EKG obtained, shows successful cardioversion. Patient recovered uneventfully from sedation. Critical Care Time Critical Care Time: Yes Critical care time (excluding procedures): 30-74 minutes (32 min), Including time spent:, Discussing w/Patient &/or Family/Diesel Locomotive Firer/Fireman, Performing Direct Patient Care at Bedside and - (Exclusive of procedure time) Discharge Plan Triage Chief Complaint: Palpitations Other Complaint: Chest Pain ED Provider: Jayesh Ibanez Dx/Rx/DC Orders Clinical Impression: Atrial fibrillation with rapid ventricular response, Chest pain Instructions: ED AFIB, ED Cardioversion, Electrical Prescriptions: Continued losartan 100 mg tablet 100 mg PO DAILY RF: 0 acetaminophen 325 mg tablet 650 mg PO ONCE PRN (Reason: Pain) RF: 0 nitroglycerin 0.4 mg tablet, sublingual 0.4 mg SUBLINGUAL Q5M PRN (Reason: Chest Pain) Qty: 25 RF: 1 aspirin 81 MG tablet,chewable 81 mg PO DAILY@0800 RF: 0 cetirizine 10 mg tablet 5 mg PO DAILY RF: 0 triamterene-hydrochlorothiazid 37.5-25 mg tablet 1 tab PO DAILY RF: 0 omeprazole 20 mg tablet,delayed release (DR/EC) 20 mg PO DAILY RF: 0 tadalafil 5 mg tablet 5 mg PO DAILY PRN (Reason: ed) RF: 0 Xarelto 20 mg tablet 20 mg PO DAILY Qty: 90 RF: 4 metoprolol tartrate 50 mg tablet 50 mg PO BID Qty: 60 RF: 12 Primary Care Provider: Kenneth Noland Referrals: EP seat cover maker, your [Other] - Keep Lona appointment Kenneth Noland DO [Primary Care Provider] - Disposition Disposition: Home, Self Care
--- NOTE | 2022-01-30 19:19 | EKG12_ITS ---
Test Reason : RHYTHM CONVERSION Blood Pressure : / mmHG Vent. Rate : 072 BPM Atrial Rate : 072 BPM P-R Int : 160 ms QRS Dur : 132 ms QT Int : 428 ms P-R-T Axes : 077 -46 012 degrees QTc Int : 468 ms Normal sinus rhythm Right bundle branch block Left anterior fascicular block Bifascicular block Abnormal ECG Confirmed by EDUARDO OBANDO MD ([id number]), general expeditor PANKAJ RODRIGUEZ ([id number]) on 01/31/2022 1:33:20 PM Referred By: BB Confirmed By:EDUARDO OBANDO MD
== END 2022-01-30 19:57 | disposition home or self-care (01) ==
PROVIDERS: Emergency Provider Emergency Medicine; PCP Family Medicine; Visit Provider Emergency Medicine
DX: I48.91 Unspecified atrial fibrillation (principal); R07.9 Chest pain, unspecified; I10 Essential (primary) hypertension; I25.10 Atherosclerotic heart disease of native coronary artery without angina pectoris; G47.33 Obstructive sleep apnea (adult) (pediatric); Z87.891 Personal history of nicotine dependence; Z79.82 Long term (current) use of aspirin; Z79.899 Other long term (current) drug therapy; Z79.01 Long term (current) use of anticoagulants
CPT/HCPCS: 80048; 84484; 85025; 93005; 96374; 96375; 99285; J7030; A4216

== ENCOUNTER 2022-03-13 21:13 | Emergency (ER) | payer MEDICARE, SELFPAY ==
[2022-03-13 21:14] VITALS: BP 108/71; PULSE 126; RESP 18; TEMP 36.8; O2SAT 96; BMI 34.4
--- NOTE | 2022-03-13 21:26 | RAD_ITS ---
STUDY: AP PORTABLE UPRIGHT CHEST X-RAY OF 2148 HOURS ON 03/13/2022 REASON FOR EXAM: 81-year-old male with chest pain. TECHNIQUE: A single view AP portable upright chest x-ray was performed per protocol. COMPARISON: 01/12/2022. FINDINGS: Mild to mineralization. Moderate osteophytic degenerative changes of the thoracic spine. No cardiomegaly. No heart failure. No pulmonary infiltrates, atelectasis, effusion, or pulmonary mass lesions. No significant interval change since the previous study of 01/12/2022. RAD/Chest 1 View (Portable) IMPRESSION: 1. No active cardiopulmonary disease. 2. Moderate osteophytic degenerative changes of the thoracic spine. 3. Mild demineralization. 4. No interval change since the previous study of 01/12/2022 Electronically Signed: Moises Dove MD at 22:32 EDT ,
--- NOTE | 2022-03-13 21:26 | EKG12_ITS ---
Test Reason : DYSRHYTHMIA Blood Pressure : / mmHG Vent. Rate : 109 BPM Atrial Rate : 109 BPM P-R Int : 184 ms QRS Dur : 128 ms QT Int : 374 ms P-R-T Axes : 000 -73 004 degrees QTc Int : 503 ms Atrial Flutter Left axis deviation Right bundle branch block Inferior infarct , age undetermined Abnormal ECG Confirmed by MAHESH CLEMENTE, SHAUN ([id number]), web content editor MEERA AWAD ([id number]) on 03/15/2022 10:44:36 AM Referred By: DAYANA Confirmed By:SHAUN ARAGON MD
[2022-03-13 21:34] VITALS: O2SAT 96
[2022-03-13 21:37] LABS: Absolute Lymphocyte Count 1.79 X10^3/uL (0.83-4.51); Basophil# 0.04 X10^3/uL; Basophil% 0.7 % (0-1); Eosinophil# 0.15 X10^3/uL; Eosinophils% 2.7 % (0-5); Hematocrit 39.4 % (40-54); Hemoglobin 13.4 g/dL (13.0-16.5); Lymphocyte # 1.79 X10^3/ul (0.83-4.51); Lymphocyte % 32.3 % (19-41); Mean Corpuscular Hgb 29.9 pg (27.0-32.0); Mean Corpuscular Volume 87.9 fL (80-94); Mean Platelet Vol. 10.2 fl (6.2-12.0); Monocyte# 0.56 X10^3/uL; Monocyte% 10.1 % (0-10); NRBC Flagged by Analyzer 0 % (0-5); Neutrophil # 2.99 X10^3/uL (2.7-7.7); Platelet Count 164 K/mm3 (150-450); RBC Distribution Width CV 12.4 % (11.6-14.6); RBC Distribution Width SD 39.6 fl (35.1-43.9); Red Blood Count 4.48 M/mm3 (4.6-6.2); White Blood Count 5.5 K/mm3 (4.4-11.0)
[2022-03-13 21:54] LABS: Anion Gap 9 (5-15); BUN 26 mg/dL (7-18); BUN/Creat Ratio 19.3 RATIO (10-20); Calcium,Total 9.1 mg/dL (8.5-10.1); Chloride 104 mmol/L (98-107); Creatinine, Serum 1.35 mg/dL (0.70-1.30); EST Glomerular Filtration Rate 54 mL/min (>60); Est Glom Filt Rate - Afr Amer 65 mL/min (>60); Estimated Creatinine Clearance 45.81 ml/min; Glucose 122 mg/dL (74-106); Potassium 3.6 mmol/L (3.5-5.1); Sodium Level 140 mmol/L (136-145); Troponin-I HS (w/2H Reflex) 24 pg/mL (3.0-78.0)
[2022-03-13] MEDS: 0.9% Normal Saline 1,000 ML 999 ML IV (22:53)
[2022-03-13] MEDS: dilTIAZem 25 MG/5 ML Vial 10 MG IV BOLUS (23:00)
[2022-03-13] MEDS: Metoprolol Tartrate 50 MG Tablet PO (23:00)
[2022-03-13 23:03] VITALS: BP 100/78; PULSE 132; RESP 20; O2SAT 96
[2022-03-13 23:13] VITALS: PULSE 82; RESP 17; O2SAT 95
--- NOTE | 2022-03-13 23:19 | ED.VIS.CHEST ---
HPI History of Present Illness Chief Complaint: Palpitations Narrative Narrative: 81-year-old male with history of A. fib, a flutter, CAD presenting with palpitations. He states this started about 1 PM today. He states he took his morning metoprolol tartrate 50 mg. He was told that if his heart rate goes fast he should take another half a pill and needed. He did not take his nighttime dose of 50 mg. He states he continues to have palpitations. He is anticoagulated on Xarelto. He has an EP physician that he sees outpatient and has had an ablation however he is scheduled for another one in April. He states that he is initially supposed to go in March but this got rescheduled. Patient is not having any chest pain or shortness of breath. No fever, chills, cough. He feels otherwise well. 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 Musculoskeletal chest pain ADAMA (obstructive sleep apnea) Paroxysmal atrial fibrillation Paroxysmal atrial tachycardia Premature atrial contractions Premature ventricular contraction Skin cancer Skin ulcer of forehead with fat layer exposed Ventricular ectopy Home Medications aspirin 81 mg chewable tablet 81 mg PO DAILY@0800 03/19/17 [History Last Taken 03/17/17] losartan 100 mg tablet 100 mg PO DAILY 07/10/18 [History Last Taken Unknown] cetirizine 10 mg tablet (24Hour Allergy) 5 mg PO DAILY 06/10/20 [History Last Taken Unknown] omeprazole 20 mg tablet,delayed release 20 mg PO DAILY 06/10/20 [History Last Taken Unknown] tadalafil 5 mg tablet (Cialis) 5 mg PO DAILY PRN ed 06/10/20 [History Last Taken Unknown] triamterene 37.5 mg-hydrochlorothiazide 25 mg tablet (Maxzide-25mg) 1 tab PO DAILY 06/10/20 [History Last Taken Unknown] rivaroxaban 20 mg tablet (Xarelto) 20 mg PO DAILY #90 tabs 03/28/21 [Rx Last Taken Unknown] acetaminophen 325 mg tablet 650 mg PO ONCE PRN Pain 05/19/21 [History Last Taken Unknown] metoprolol tartrate 50 mg tablet 50 mg PO BID #60 tabs 11/16/21 [Rx Last Taken Unknown] nitroglycerin 0.4 mg sublingual tablet 0.4 mg sublingual Q5M PRN Chest Pain #25 tabs 11/17/21 [Rx Last Taken Unknown] latanoprost 0.005 % eye drops (Xalatan) 1 drp EACH EYE QHS 03/13/22 [History Last Taken Unknown] Allergy/AdvReac Type Severity Reaction Status Date / Time No Known Drug Allergies Allergy Unknown Other Verified 01/30/22 17:46 Family History Father Lung cancer Surgical History History of left heart catheterization History of radiofrequency ablation procedure for cardiac arrhythmia (~04/28/20) Social History Smoking Status: Former smoker alcohol intake: former substance use type: does not use caffeine: Yes Type: coffee what type of physical activity do you participate in: none seatbelt use: sometimes do you feel safe at home: Yes additional social history: Does take Aspirin daily Does not take Ibuprofen ROS ROS ED Constitutional Constitutional ED: Denies chills, fever(s) or sweats Eyes Eyes: Denies blurry vision or change in vision ENT ENT ED: Denies ear pain or sore throat Cardiovascular Cardiovascular: Reports palpitations and racing heartbeat; Denies chest pain Respiratory/Chest Respiratory/Chest: Denies cough, dyspnea or sputum Gastrointestinal Gastrointestinal: Denies abdominal pain, constipation, diarrhea, nausea or vomiting Genitourinary Genitourinary ED: Denies dysuria, hematuria or urinary frequency Musculoskeletal Musculoskeletal: Denies arthralgias, myalgias or neck pain Integumentary Denies abscess, Abrasions or rash Neurologic Neurologic: Denies headache(s), paresthesias or weakness Psychiatric Psychiatric: Denies anxiety, depression, suicidal ideation or suicidal thoughts Endocrine Endocrinology: Denies polydipsia or polyuria EXAM Physical Exam Const Vital Signs: 03/13/22 21:14 03/13/22 21:34 03/13/22 21:54 Temperature 98.2 F Temperature Source Oral Pulse Rate 126 H Respiratory Rate 18 Respiratory Effort Normal Non-Labored Blood Pressure 108/71 Blood Pressure Mean 83 Pulse Ox 96 96 Oxygen Delivery Method Room Air Room Air 03/13/22 23:03 03/13/22 23:13 03/13/22 23:26 Temperature Temperature Source Pulse Rate 132 H 82 84 Respiratory Rate 20 H 17 18 Respiratory Effort Blood Pressure 100/78 Blood Pressure Mean 85 Pulse Ox 96 95 96 Oxygen Delivery Method Room Air Room Air Room Air Positive well nourished General Appearance ED: NAD HEENT Reports TM's clear and moist mucous membranes Tympanic Membrane ED: Yes TM's clear Eyes PERRL and EOMs intact bilaterally Chest Wall inspection of chest normal Resp normal respiratory effort and clear to auscultation bilaterally Cardio Peripheral Pulses: pulses 2+ throughout Extremity normal to inspection General Extremety ED: Negative for edema General Extremity: Negative for edema MDM MDM MDM Narrative Medical decision making narrative: Patient presenting with rapid heart rate and palpitations. On my interpretation EKG appears to be a sinus tachycardia with a ventricular rate of 109 bpm. Right bundle branch block is noted. On the monitor the patient appears to be having small runs of atrial fibrillation and then goes into a sinus tachycardia. He is not reporting any pain. CBC shows no leukocytosis. Hemoglobin macular stable. Creatinine slightly elevated 1.35. Electrolytes are normal. High-sensitivity troponin is 24. Chest x-ray on my interpretation shows no acute cardiopulmonary process. Patient was given 10 mg of Cardizem IV and his heart rate is now 82. He was given his nighttime dose of metoprolol tartrate 50 mg. Since his work-up is ultimately negative I recommend that he call cardiology tomorrow. He should also call his first aid nurse. Patient be discharged home in stable condition. Impression: 1. Tachycardia 2. A. fib 3. Palpitations Lab Data Attestation: I reviewed the patient's lab results. Labs: Laboratory Results - last 24 hr 03/13/22 03/13/22 21:25 21:25 WBC 5.5 RBC 4.48 L Hgb 13.4 Hct 39.4 L MCV 87.9 MCH 29.9 MCHC 34.0 RDW Std Deviation 39.6 RDW Coeff of Lisa 12.4 Plt Count 164 MPV 10.2 Immature Gran % (Auto) 0.200 Neut % (Auto) 54.0 Lymph % (Auto) 32.3 Bertie % (Auto) 10.1 H Eos % (Auto) 2.7 Baso % (Auto) 0.7 Absolute Neuts (auto) 3.0 Absolute Lymphs (auto) 1.79 Nucleated RBC % 0 Sodium 140 Potassium 3.6 Chloride 104 Carbon Dioxide 27.0 Anion Gap 9 BUN 26 H Creatinine 1.35 H Estim Creat Clear Calc 45.81 Est GFR (MDRD) Af Amer 65 Est GFR (MDRD) Non-Af 54 L BUN/Creatinine Ratio 19.3 Glucose 122 H Calcium 9.1 Troponin I High Sens 24 Radiography Diagnostic Testing: Clinical Impression(s) from Imaging Studies Chest X-Ray 03/13/22 21:26 IMPRESSION: 1. No active cardiopulmonary disease. 2. Moderate osteophytic degenerative changes of the thoracic spine. 3. Mild demineralization. 4. No interval change since the previous study of 01/12/2022 Electronically Signed: Moises Dove MD at 22:32 EDT , Discharge Plan Triage Chief Complaint: Palpitations ED Provider: Wojciech Roberts Dx/Rx/DC Orders Instructions: ED AFIB, ED Palpitations Prescriptions: No Action losartan 100 mg tablet 100 mg PO DAILY acetaminophen 325 mg tablet 650 mg PO ONCE PRN (Reason: Pain) nitroglycerin 0.4 mg tablet, sublingual 0.4 mg SUBLINGUAL Q5M PRN (Reason: Chest Pain) Qty: 25 1RF Label Comments: chest pain aspirin 81 MG tablet,chewable 81 mg PO DAILY@0800 Label Comments: stopped 03/19 for colonoscopy latanoprost [Xalatan] 0.005 % drops 1 drp EACH EYE QHS Label Comments: 1 drop in both eyes nightly cetirizine [24Hour Allergy] 10 mg tablet 5 mg PO DAILY triamterene-hydrochlorothiazid [Maxzide-25mg] 37.5-25 mg tablet 1 tab PO DAILY omeprazole 20 mg tablet,delayed release (DR/EC) 20 mg PO DAILY tadalafil [Cialis] 5 mg tablet 5 mg PO DAILY PRN (Reason: ed) Xarelto 20 mg tablet 20 mg PO DAILY Qty: 90 4RF metoprolol tartrate 50 mg tablet 50 mg PO BID Qty: 60 12RF Primary Care Provider: Kenneth Noland Referrals: Kenneth Noland DO [Primary Care Provider] - Disposition Disposition: Home, Self Care
[2022-03-13 23:26] VITALS: PULSE 84; RESP 18; O2SAT 96
[2022-03-13 23:34] LABS: Reflex Troponin-HS? (from REC) Y
[2022-03-13 23:45] VITALS: BP 100/73; PULSE 82; RESP 18; O2SAT 97
--- NOTE | 2022-03-13 23:45 | NURSING ---
ok to cancel second troponin per dr henry.
== END 2022-03-13 23:56 | disposition home or self-care (01) ==
PROVIDERS: Emergency Provider Student in an Organized Health Care Education/Training Program; PCP Family Medicine; Visit Provider Student in an Organized Health Care Education/Training Program
DX: R00.0 Tachycardia, unspecified (principal); I48.0 Paroxysmal atrial fibrillation; I25.10 Atherosclerotic heart disease of native coronary artery without angina pectoris; R00.2 Palpitations; I10 Essential (primary) hypertension; G47.33 Obstructive sleep apnea (adult) (pediatric); Z87.891 Personal history of nicotine dependence; Z79.82 Long term (current) use of aspirin; Z79.899 Other long term (current) drug therapy; Z79.01 Long term (current) use of anticoagulants
CPT/HCPCS: 71045; 80048; 84484; 85025; 93005; 96374; 99285; J7030; A4216

== ENCOUNTER 2022-04-04 10:50 | Day surgery (SDC) | payer MEDICARE, SELFPAY ==
[2022-04-03 09:20] VITALS: BMI 34.5
--- NOTE | 2022-04-04 07:47 | PCM.HP.BLA ---
History and Physical Date of Admission: 04/03/22 [facility] [address] [place], [place] [id number] OFFICE VISIT Date of Service:? 03/31/22 MR#: [id number] Acct: [id number] Name:JOSEPH FORD GENE Rep #: [id number] : 1940 Provider: ?TIA Mcdonald Age/Sex:? 81/M Location: [facility] [place] Status: Signed HPI HPI History of Present Illness Surgical H&P: Yes Details: Joseph Dunham is a 81-year-old white male who presents today for an updated HPI for an upcoming DCCV. He does have a hx of cardiac ectopy and atrial fibrillation status post previous EPS/RFA (03/2020), mild CAD, hyperlipidemia, hypertension, ADAMA (he does use his CPAP).? Pt did have 3 additional DCCVs after his RFA. ? The most recent is was 01/12/22 with an ER visit. Patient did see Dr. Patiño in November 2021 where at that time Dr. Patiño had recommended adjusting his beta-blockers and if he had any further recurrence pursuing a second ablation or pursuing an antiarrhythmic.? Pt has been having issues with PAF, he is very symptomatic with his AFib.? He is scheduled to have an ablation with Dr. Patiño 04/21/2022.? However since he is so symptomatic EP asked that we attempt a DCCV prior to his ablation. He complains of extreme fatigue with his Afib. He does not have any SOB/CP.? He does sometimes feels his Afib, more so when it is faster. He does not have any edema. Intake Vital Signs ? 03/13/2221:14 03/31/2209:27 Height 5 ft 10 in 5 ft 10 in Weight: ? 241 lb BMI ? 34.5 BP ? 120/80 Pulse ? 94 Intake Visit Reasons:?UPDATE H&P FOR DCCV [employer] Required: No Is patient in pain?: No Allergies No Known Drug Allergies Allergy (Unknown, Verified 03/31/22 09:43) Other Medications aspirin 81 mg chewable tablet 81 mg PO DAILY@0800 03/19/17 [History Confirmed 03/31/22] losartan 100 mg tablet 100 mg PO DAILY 07/10/18 [History Confirmed 03/31/22] cetirizine 10 mg tablet (24Hour Allergy) 5 mg PO DAILY 06/10/20 [History Confirmed 03/31/22] omeprazole 20 mg tablet,delayed release 20 mg PO DAILY 06/10/20 [History Confirmed 03/31/22] tadalafil 5 mg tablet (Cialis) 5 mg PO DAILY PRN ed 06/10/20 [History Confirmed 03/31/22] triamterene 37.5 mg-hydrochlorothiazide 25 mg tablet (Maxzide-25mg) 1 tab PO DAILY 06/10/20 [History Confirmed 03/31/22] rivaroxaban 20 mg tablet (Xarelto) 20 mg PO DAILY #90 tabs 03/28/21 [Rx Confirmed 03/31/22] acetaminophen 325 mg tablet 650 mg PO ONCE PRN Pain 05/19/21 [History Confirmed 03/31/22] metoprolol tartrate 50 mg tablet 50 mg PO BID #60 tabs 11/16/21 [Rx Confirmed 03/31/22] nitroglycerin 0.4 mg sublingual tablet 0.4 mg sublingual Q5M PRN Chest Pain #25 tabs 11/17/21 [Rx Confirmed 03/31/22] latanoprost 0.005 % eye drops (Xalatan) 1 drp EACH EYE QHS 03/13/22 [History Confirmed 03/31/22] PFSH Medical History?(Updated 03/31/22 @ 09:59 by Jo Mcdonald PA, PA) Arthritis Atherosclerosis of [place] coronary artery of [place] heart without angina pectoris Atrial flutter Contusion of other part of head, sequela DDD (degenerative disc disease), cervical HLD (hyperlipidemia) HTN (hypertension) long-term (current) use of anticoagulants ADAMA (obstructive sleep apnea) Paroxysmal atrial fibrillation Paroxysmal atrial tachycardia Persistent atrial fibrillation Premature atrial contractions Premature ventricular contraction Skin cancer Skin ulcer of forehead with fat layer exposed Ventricular ectopy Surgical History? History of left heart catheterization History of radiofrequency ablation procedure for cardiac arrhythmia (~04/28/20) Family History? Father Lung cancer Social History? Smoking Status:? Former smoker alcohol intake:? former substance use type:? does not use caffeine:? Yes Type: coffee what type of physical activity do you participate in:? none seatbelt use:? sometimes do you feel safe at home:? Yes additional social history:? Does take Aspirin daily Does not take Ibuprofen ROS Const Const: Positive for fatigue; Negative for weakness, headache(s), frequent falls, excessive sweating, weight gain or weight loss Eyes Eyes: Negative for blind spots, loss of peripheral vision, transient loss of vision, blurry vision, change in vision or double vision ENT ENT: Negative for headache(s), dizziness, tinnitus, Nosebleed/epistaxis or balance problems Cardio Chest Pain: No Palpitations: Yes Edema: None Muscle aches with walking: None Resp Respiratory: Negative for SOB with activity, SOB at rest, SOB orthopnea\SOB lying down or Cough GI GI: Negative nausea, vomiting, heartburn, bloating, vomiting blood/hematemesis, bright, red blood in stools or black,tarry stools : Negative for hematuria Musc Musc: Negative for muscle aches/ myalgia, muscle weakness, joint pain or balance problems Skin Skin: Negative rash or wounds Neuro Neuro: Negative for dizziness, lightheadedness, near syncope, syncope, orthostatic symptoms, frequent falls, headache(s), weakness, confusion, memory loss, restless legs, blurry vision or double vision Messi Hematologic/Lymphatic: Negative for easy bleeding or easy bruising Endo Endo: Positive for fatigue; Negative for cold intolerance, heat intolerance or excessive sweating Psych Psych: Negative for anxiety or depression Allergy Allergy/Immunology: Negative for rash Cardiology Exam Const Appearance: cooperative, healthy appearing, comfortable, no acute distress, well developed and well groomed Nutritional Appearance: overweight Orientation: alert and oriented x3 Head Head: normal to inspection, normocephalic and atraumatic Ears: hearing grossly normal bilaterally Nose: external nose normal Face and Sinus: face symmetric Eyes Eyelids: eyelids normal Conjunctivae: conjunctivae normal Pupils: PERRL and pupil size EOM: EOM intact bilaterally Neck Neck: normal visual inspection and full ROM Carotids: normal carotid upstroke; Negative bruit Chest Chest inspection: normal inspection of the chest, symmetric chest movement and normal respiratory effort Auscultation: Bilateral: Clear to Auscultation Cardio Palpation: normal PMI Rate: regular rate Rhythm: irregularly irregular Heart sounds: S1 normal, S2 normal and murmur Murmur: Grade 2/6, soft, mid systolic, LLSB, LVOT and sternal notch GI GI: normal to inspection, soft and bowel sounds present Neuro General: patient alert, patient awake, patient oriented x3 and moves all extremities Skin Skin: no rashes or lesions noted Extremities Pulses: Normal: Right Posterior Tibial Pulse, Left Posterior Tibial Pulse, Right Radial Pulse and Left Radial Pulse Lower Extremity Edema: None: Bilateral and Color Changes: Bilateral Psych Psychological: normal affect Supplemental Info Supplemental Information Transthoracic echocardiogram: 04-13-20 Interpretation Summary Left ventricular systolic function is normal. The estimated ejection fraction is 65 %. Mild concentric left ventricular hypertrophy. The left atrium is moderately to severely enlarged. The right atrium is moderately enlarged. Mild (1+) mitral valve insufficiency. Mild to moderate (1-2+) tricuspid valve insufficiency. Mild focal aortic valve calcification. Mild (1+) pulmonic valve insufficiency. Right ventricular systolic pressure estimated to be 44 mmHg. There is evidence of diastolic dysfunction. Transthoracic echocardiogram: 07-15-18 Interpretation Summary Normal LV size. Left ventricular systolic function is normal. The estimated ejection fraction is 65 %. No evidence for diastolic dysfunction. Mild (1+) tricuspid valve insufficiency. Pulmonary artery systolic pressure is 45 mmHg. Stress echocardiogram: 06-20-16 Interpretation Summary 1) Negative (adequate) Stress Echocardiograrn 2) Abnormal ECO ETT 3) Exercise induced cardiac ectopy (as noted above) 4) Deconditioned heart rate response 5) Decreased functional capacity Cardiac catheterization: 06-21-16 Final impression: 1.? Elevated left ventricular end-diastolic pressure compatible decreased diastolic compliance 2.? Left ventricle: A.? Normal left ventricular size, wall motion, and systolic function B.? Estimated LVEF is 65% 3.? Left main coronary artery: A.? Short/common ostial vessel B.? Angiographically normal-appearing 4.? Left anterior descending coronary artery: A.? Proximal to mid diffuse 10-25% smooth eccentric appearing stenosis B.? Diagonal branch #1: Ostial/proximal 25% smooth eccentric appearing stenosis 5.? Left circumflex coronary artery: A.? Large dominant vessel B.? Minimal luminal irregularity 6.? Right coronary artery: A.? Small nondominant vessel B.? Angiographically normal Labs: ?? ? LDL Cholesterol 56 mg/dL (0-130) ?? ? HDL Cholesterol 35 mg/dL (40-) L ?? ? Triglycerides 140 mg/dL (-199) ?? ? VLDL Cholesterol 28 mg/dL (5-40) Diagnostics: ?? ? Electrocardiogram ? Chest X-Ray ? Venous Doppler Study ? Pulmonary: ?? ? No Data to Display Assessment and Plan Assessment and Plan (1) Paroxysmal atrial fibrillation: ?Status:?Chronic ?Comment: Status post EPS/RFA at [facility] on 04/28/2020 with cryoballoon catheter ablation by Dr. Patiño; ?Plan: Patient will undergo a cardioversion next week.? He will also keep his appointment with EP at the end of April for a possible ablation.? He will follow-up with us the following month.? He was reminded not to stop his beta-racquel or his Xarelto. (2) Atherosclerosis of [place] coronary artery of [place] heart without angina pectoris: ?Status:?Chronic ?Plan: Patient does not have any symptoms of angina.? He will continue with his current aggressive medical management. (3) Essential hypertension: ?Status:?Chronic ?Plan: Overall blood pressure is okay.? Will not make any adjustments. (4) Persistent atrial fibrillation: ?Status:?Acute ? ? ? Orders: Orders Cardioversion Today I48.19 - Other persistent atrial fibrillation ? 12 Lead EKG performed by BMS Today I48.19 - Other persistent atrial fibrillation ?Patient Instructions: Your procedure is schedule for 04/04/2022 at 1230, you need to arrive at 1100. Nothing to eat or drink after midnight With a small sip of water take your morning medications. 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 Plan Details Additional Comments: The above was discussed with the patient.? He was agreeable to this approach. Thank you for allowing me to participate in the care of your patient.? Please don't hesitate to call if any issues arise. This note was generated using a voice recognition system and there may be incorrect words, spelling or punctuation that were not noted when reviewing the office note prior to saving. Follow Up: ? ? 03/31/22 (Keep as is) Coding Level of Care Code Off vis,est,level 4 Diagnoses Paroxysmal atrial fibrillation? I48.0 Atherosclerosis of [place] coronary artery of [place] heart without angina pectoris? I25.10 Essential hypertension? I10 Persistent atrial fibrillation? I48.19 Coding Level of Care Code Off vis,est,level 4 Diagnoses Paroxysmal atrial fibrillation? I48.0 Atherosclerosis of [place] coronary artery of [place] heart without angina pectoris? I25.10 Essential hypertension? I10 Persistent atrial fibrillation? I48.19 03/31/22 1014 <Electronically signed by Jo WEBER> Date Jo WEBER Cosign Signature: Date (if applicable) CC:? Dr. Kenneth Noland, DO ~ Assessment & Plan Addt'l Comments I have re-examined the patient. There are no clinical changes since date of exam
--- NOTE | 2022-04-04 12:35 | CARDIOVERS ---
Cardioversion Cardioversion: Date: 04-04-2022 Procedure: Synchronized Biphasic DC Cardioversion Indications: Atrial fibrillation Consent: Per the Patient Anesthesia: per Dr. Davalos of pulmonology and critical care medicine with propofol 60 mg IV push total Procedure: Synchronized Biphasic DC Cardioversion: 200 J x 1: Result: Sinus rhythm Complications: no apparent complications This note was generated with [employer], a Division of [employer] dictation software. It may contain incorrect words, spelling, and punctuation that were not noted in checking the note before signing.
--- NOTE | 2022-04-04 13:40 | PCM.OP.PRO ---
Procedure Report Date of Procedure: 04/04/22 CONSCIOUS SEDATION REPORT BRIEF HISTORY OF PRESENT ILLNESS: The patient is a 81-year-old male who presented to [facility] for an elective outpatient cardioversion due to underlying atrial fibrillation. The patient reports no PO intake since midnight, but is currently therapeutic on anticoagulation. The patient does have a history of obstructive sleep apnea and is compliant with therapy. The patient reports no history of smoking and COPD. The patient denies any recent constitutional symptoms such as fevers, chills, nausea or vomiting. The patient denies previous applicable anesthetic complications. Patient's last known ejection fraction was 65%. Patient has had 4 previous cardioversions and an ablation. Patient did take anticoagulation on the day of the study. PHYSICAL EXAMINATION: VITAL SIGNS: Reviewed and were acceptable. GENERAL: The patient is a male, in no apparent distress, speaking in full sentences. HEENT: Normocephalic, atraumatic. Mucous membranes are moist and pink. Good mouth opening noted. Trachea is midline. Good neck mobility. MP III CHEST: S1, S2 irregularly irregular. No murmurs, rubs or gallops were noted. LUNGS: Clear to auscultation bilaterally without appreciable wheezes, rales or rhonchi. ABDOMEN: Soft, nontender, nondistended. Positive bowel sounds. EXTREMITIES: There is no clubbing, cyanosis or edema. ASA Class: II DESCRIPTION OF PROCEDURE: After confirmation of informed consent, the patient's anesthesia plan was reviewed in detail. Propofol was chosen. Risks and benefits were reviewed and the patient agreed to proceed. At 12:14 PM, the patient was given 40 mg of propofol. The patient required a total of 60 mg of propofol throughout the procedure to achieve appropriate sedation. The patient achieved an appropriate level of sedation and received 1 attempt synchronized cardioversion, at [address] Amaro at the bedside. This was successful in achieving normal sinus rhythm. The patient was monitored until 12:30 PM, at which time the patient reached their baseline mental status and function. The patient tolerated the procedure well. COMPLICATIONS: None ESTIMATED BLOOD LOSS: None RECOMMENDATIONS: Okay to recover in usual fashion.
== END 2022-04-04 13:23 | disposition home or self-care (01) ==
PROVIDERS: PCP Family Medicine; Referring Provider Internal Medicine Cardiovascular Disease; Visit Provider Internal Medicine Cardiovascular Disease
DX: I48.0 Paroxysmal atrial fibrillation (principal); G47.33 Obstructive sleep apnea (adult) (pediatric); I25.10 Atherosclerotic heart disease of native coronary artery without angina pectoris; I10 Essential (primary) hypertension; M50.30 Other cervical disc degeneration, unspecified cervical region; M19.90 Unspecified osteoarthritis, unspecified site; Z79.82 Long term (current) use of aspirin; Z79.899 Other long term (current) drug therapy; Z87.891 Personal history of nicotine dependence
CPT/HCPCS: 92960; 93005; J7040

== ENCOUNTER 2022-04-12 18:08 | Emergency (ER) | payer MEDICARE, SELFPAY ==
[2022-04-12 18:10] VITALS: BP 167/73; PULSE 80; RESP 18; TEMP 35.8; O2SAT 96; BMI 34.4
--- NOTE | 2022-04-12 18:36 | EKG12_ITS ---
Test Reason : DYSRHYTHMIA Blood Pressure : / mmHG Vent. Rate : 068 BPM Atrial Rate : 068 BPM P-R Int : 164 ms QRS Dur : 136 ms QT Int : 436 ms P-R-T Axes : 061 -25 011 degrees QTc Int : 463 ms Normal sinus rhythm Right bundle branch block Abnormal ECG Confirmed by FLORENCIA CLEMENTE, SAIMA ([id number]), editor greeting card MEERA AWAD ([id number]) on 04/14/2022 2:30:33 PM Referred By: SIERRA Confirmed By:JHOAN DON MD
--- NOTE | 2022-04-12 18:37 | EDS_ITS ---
HPI History of Present Illness Chief Complaint: Palpitations Informant: patient Onset/Context/Timing Onset: Today Current Severity: Gone Maximum Severity: Mild Narrative Narrative: Patient presents secondary to palpitations. He has a history of paroxysmal A. fib and felt himself go into A. fib earlier today. He states that this time he seems to be improved. He does report cough and congestion that started last evening. He had a temperature of 99.5. His tested positive for COVID but he has had 2 negative home tests. [facility] Medical History Arthritis Atherosclerosis of [place] coronary artery of [place] heart without angina pectoris Atrial flutter Contusion of other part of head, sequela DDD (degenerative disc disease), cervical HLD (hyperlipidemia) HTN (hypertension) group home (current) use of anticoagulants ADAMA (obstructive sleep apnea) Paroxysmal atrial fibrillation Paroxysmal atrial tachycardia Persistent atrial fibrillation Premature atrial contractions Premature ventricular contraction Skin cancer Skin ulcer of forehead with fat layer exposed Ventricular ectopy Home Medications aspirin 81 mg chewable tablet 81 mg PO DAILY@0800 03/19/17 [History Last Taken 04/04/22] losartan 100 mg tablet 100 mg PO DAILY 07/10/18 [History Last Taken 04/04/22] cetirizine 10 mg tablet (24Hour Allergy) 5 mg PO DAILY 06/10/20 [History Last Taken 04/04/22] omeprazole 20 mg tablet,delayed release 20 mg PO DAILY 06/10/20 [History Last Taken 04/04/22] tadalafil 5 mg tablet (Cialis) 5 mg PO DAILY PRN ed 06/10/20 [History Last Taken Unknown] triamterene 37.5 mg-hydrochlorothiazide 25 mg tablet (Maxzide-25mg) 1 tab PO DAILY 06/10/20 [History Last Taken 04/04/22] rivaroxaban 20 mg tablet (Xarelto) 20 mg PO DAILY #90 tabs 03/28/21 [Rx Last Taken 04/04/22] acetaminophen 325 mg tablet 650 mg PO ONCE PRN Pain 05/19/21 [History Last Taken Unknown] metoprolol tartrate 50 mg tablet 50 mg PO BID #60 tabs 11/16/21 [Rx Last Taken 04/04/22] nitroglycerin 0.4 mg sublingual tablet 0.4 mg sublingual Q5M PRN Chest Pain #25 tabs 11/17/21 [Rx Last Taken Unknown] latanoprost 0.005 % eye drops (Xalatan) 1 drp EACH EYE QHS 03/13/22 [History Last Taken 04/04/22] Allergy/AdvReac Type Severity Reaction Status Date / Time No Known Drug Allergies Allergy Unknown Other Verified 03/31/22 09:43 Family History Father Lung cancer Surgical History History of left heart catheterization History of radiofrequency ablation procedure for cardiac arrhythmia (~04/28/20) Social History Smoking Status: Former smoker alcohol intake: former substance use type: does not use caffeine: Yes Type: coffee what type of physical activity do you participate in: none seatbelt use: sometimes do you feel safe at home: Yes additional social history: Does take Aspirin daily Does not take Ibuprofen ROS ROS ED Constitutional Constitutional ED: Reports fever(s); Denies chills Eyes Eyes: Denies change in vision or discharge from eye(s) ENT ENT ED: Reports rhinorrhea and other Details: Congestion ; Denies discharge from eye(s) or sore throat Cardiovascular Cardiovascular: Reports palpitations; Denies chest pain Respiratory/Chest Respiratory/Chest: Reports cough and dyspnea; Denies sputum Gastrointestinal Gastrointestinal: Denies abdominal pain, diarrhea, nausea or vomiting Genitourinary Genitourinary ED: Denies difficulty urinating or dysuria Musculoskeletal Musculoskeletal: Denies back pain or extremity pain Integumentary Denies Abrasions or rash Neurologic Neurologic: Denies headache(s) or weakness Psychiatric Psychiatric: Denies anxiety or depression Allergic/Immunologic Allergic/Immunologic ED: Denies lip swelling or urticaria EXAM Physical Exam Const Vital Signs: 04/12/22 18:10 04/12/22 18:27 Temperature 96.4 F L Temperature Source Temporal Pulse Rate 80 Respiratory Rate 18 Respiratory Effort Normal Non-Labored Respiratory Pattern Normal Blood Pressure 167/73 H Blood Pressure Mean 104 Pulse Ox 96 Oxygen Delivery Method Room Air Positive well nourished and well developed General Appearance ED: well developed HEENT Reports normocephalic and head/scalp atraumatic Eyes PERRL and EOMs intact bilaterally Neck supple Chest Wall inspection of chest normal and palpation of chest normal Resp normal respiratory effort and clear to auscultation bilaterally Cardio regular rate and regular rhythm GI non-tender Palpation: soft Extremity normal to inspection Neuro oriented x3 and no sensory deficits noted Sensorium / Orientation: alert Motor Exam: strength 5/5 throughout Psych mental status grossly normal Skin no rashes or lesions noted MDM MDM MDM Narrative Medical decision making narrative: Patient placed on engine monitor. EKG, chest x-ray, lab work obtained. Swabs for COVID and influenza obtained. Lab Data Labs: Laboratory Results - last 24 hr 04/12/22 04/12/22 18:44 18:44 WBC 7.3 RBC 4.10 L Hgb 12.4 L Hct 36.7 L MCV 89.5 MCH 30.2 MCHC 33.8 RDW Std Deviation 40.1 RDW Coeff of Lisa 12.3 Plt Count 139 L MPV 10.0 Immature Gran % (Auto) 0.700 Neut % (Auto) 80.9 H Lymph % (Auto) 6.5 L Swisher % (Auto) 10.6 H Eos % (Auto) 0.8 Baso % (Auto) 0.5 Absolute Neuts (auto) 5.9 Absolute Lymphs (auto) 0.48 L Nucleated RBC % 0 Differential Comment SCANNED Sodium 138 Potassium 3.5 Chloride 103 Carbon Dioxide 27.0 Anion Gap 8 BUN 23 H Creatinine 1.13 Estim Creat Clear Calc 54.73 Est GFR (MDRD) Af Amer 80 Est GFR (MDRD) Non-Af 66 BUN/Creatinine Ratio 20.4 H Glucose 131 H Calcium 8.9 Radiography Chest X-Ray - ED: 1 View, Read by ED Physician, Normal, Heart, Lungs, Mediastinum and No Infiltrates EKG Initial EKG: Attestation: I personally reviewed and interpreted this EKG as follows: Interpretation: Sinus Rhythm (Sinus rhythm at 68 bpm. Right bundle branch block noted. No acute ischemia.) Treatment and Re-Evaluation Narrative: EKG is sinus rhythm. He has remained in sinus rhythm on the engine monitor throughout his ED stay. Lab work reveals normal CBC and chemistry studies. Chest x-ray per my interpretation reveals no infiltrate. COVID test does return positive. We did discuss Paxlovid, however patient is on Xarelto and Paxil but cannot be taken with this medication. He will continue supportive care. Return instructions provided. Discharge Plan Triage Chief Complaint: Palpitations ED Provider: Magdalene Medley Dx/Rx/DC Orders Clinical Impression: COVID-19, Palpitations Instructions: Coronavirus Disease 2019 (COVID-19): Overview, Coronavirus Disease 2019 (COVID-19): Caring for Yourself or Others, ED Palpitations Prescriptions: No Action losartan 100 mg tablet 100 mg PO DAILY acetaminophen 325 mg tablet 650 mg PO ONCE PRN (Reason: Pain) nitroglycerin 0.4 mg tablet, sublingual 0.4 mg SUBLINGUAL Q5M PRN (Reason: Chest Pain) Qty: 25 1RF Label Comments: chest pain aspirin 81 MG tablet,chewable 81 mg PO DAILY@0800 Label Comments: stopped 03/19 for colonoscopy latanoprost [Xalatan] 0.005 % drops 1 drp EACH EYE QHS Label Comments: 1 drop in both eyes nightly cetirizine [24Hour Allergy] 10 mg tablet 5 mg PO DAILY triamterene-hydrochlorothiazid [Maxzide-25mg] 37.5-25 mg tablet 1 tab PO DAILY omeprazole 20 mg tablet,delayed release (DR/EC) 20 mg PO DAILY tadalafil [Cialis] 5 mg tablet 5 mg PO DAILY PRN (Reason: ed) Xarelto 20 mg tablet 20 mg PO DAILY Qty: 90 4RF metoprolol tartrate 50 mg tablet 50 mg PO BID Qty: 60 12RF Primary Care Provider: Kenneth Noland Referrals: Kenneth Noland DO [Primary Care Provider] - 1-2 Weeks Disposition Disposition: Home, Self Care
[2022-04-12 18:56] LABS: Absolute Lymphocyte Count 0.48 X10^3/uL (0.83-4.51); Absolute Neutrophil Count 5.9 X10^3/uL (2.0-7.7); Basophil# 0.04 X10^3/uL; Basophil% 0.5 % (0-1); Eosinophil# 0.06 X10^3/uL; Eosinophils% 0.8 % (0-5); Hematocrit 36.7 % (40-54); Hemoglobin 12.4 g/dL (13.0-16.5); Lymphocyte # 0.48 X10^3/ul (0.83-4.51); Lymphocyte % 6.5 % (19-41); Mean Corp Hgb Conc 33.8 g/dL (32-36); Mean Corpuscular Hgb 30.2 pg (27.0-32.0); Mean Corpuscular Volume 89.5 fL (80-94); Monocyte# 0.78 X10^3/uL; Monocyte% 10.6 % (0-10); NRBC Flagged by Analyzer 0 % (0-5); Neutrophil # 5.92 X10^3/uL (2.7-7.7); Neutrophil % 80.9 % (47-70); POSITIVE DIFFERENTIAL YES; Platelet Count 139 K/mm3 (150-450); RBC Distribution Width CV 12.3 % (11.6-14.6); RBC Distribution Width SD 40.1 fl (35.1-43.9); White Blood Count 7.3 K/mm3 (4.4-11.0)
--- NOTE | 2022-04-12 18:56 | RAD_ITS ---
STUDY: PORTABLE AP UPRIGHT CHEST X-RAY OF 1853 HOURS ON 04/12/2022 REASON FOR EXAM: 81-year-old male with cough. TECHNIQUE: A single view portable AP upright chest x-ray was performed per protocol. COMPARISON: 03/13/2022. FINDINGS: Lordotic view. Normal osseous structures. Moderate osteophytic degenerative changes of the thoracic spine. No cardiomegaly. Normal thoracic aorta. No pulmonary infiltrates, atelectasis, effusion, or pulmonary mass lesions. No pneumonia, pneumonitis, or bronchitis. No interval change since the previous study of 03/13/2022. RAD/Chest 1 View (Portable) IMPRESSION: 1. Lordotic view. 2. Moderate osteophytic degenerative changes of the thoracic spine. 3. No active cardiopulmonary disease. No pneumonia, pneumonitis, bronchitis. 4. No interval change since the previous study of 03/13/2022. Electronically Signed: Moises Dove MD at 19:36 EDT ,
[2022-04-12 18:58] LABS: Differential Indicated SCAN CRITERIA MET
[2022-04-12 19:08] LABS: Anion Gap 8 (5-15); BUN 23 mg/dL (7-18); BUN/Creat Ratio 20.4 RATIO (10-20); Calcium,Total 8.9 mg/dL (8.5-10.1); Chloride 103 mmol/L (98-107); Creatinine, Serum 1.13 mg/dL (0.70-1.30); EST Glomerular Filtration Rate 66 mL/min (>60); Est Glom Filt Rate - Afr Amer 80 mL/min (>60); Estimated Creatinine Clearance 54.73 ml/min; Glucose 131 mg/dL (74-106); Potassium 3.5 mmol/L (3.5-5.1); Sodium Level 138 mmol/L (136-145)
[2022-04-12 19:27] LABS: Differential Comment SCANNED
[2022-04-12 19:29] VITALS: BP 126/73; PULSE 60; RESP 20; O2SAT 95
[2022-04-12 19:32] VITALS: BP 126/73; PULSE 60; RESP 20; O2SAT 95
== END 2022-04-12 19:48 | disposition home or self-care (01) ==
PROVIDERS: Emergency Provider Emergency Medicine; PCP Family Medicine; Visit Provider Emergency Medicine
DX: U07.1 COVID-19 (principal); R00.2 Palpitations; I25.10 Atherosclerotic heart disease of native coronary artery without angina pectoris; G47.33 Obstructive sleep apnea (adult) (pediatric); M50.30 Other cervical disc degeneration, unspecified cervical region; Z87.891 Personal history of nicotine dependence
CPT/HCPCS: 71045; 80048; 85025; 87428; 93005; 99284; A4216

== ENCOUNTER 2022-04-27 22:36 | Emergency (ER) | payer MEDICARE, SELFPAY ==
[2022-04-27 22:37] VITALS: BP 152/95; PULSE 136; RESP 16; TEMP 37.1; O2SAT 96; BMI 33.0
--- NOTE | 2022-04-27 22:56 | EKG12_ITS ---
Test Reason : PALPITATIONS Blood Pressure : / mmHG Vent. Rate : 105 BPM Atrial Rate : 000 BPM P-R Int : 000 ms QRS Dur : 140 ms QT Int : 384 ms P-R-T Axes : 000 -47 010 degrees QTc Int : 507 ms Atrial fibrillation with rapid ventricular response Right bundle branch block Left anterior fascicular block Bifascicular block Abnormal ECG Confirmed by FLORENCIA CLEMENTE, SAIMA ([id number]), assistant editor MEERA AWAD ([id number]) on 05/01/2022 9:33:19 AM Referred By: MICKEY Confirmed By:JHOAN DON MD
[2022-04-27 23:38] LABS: Absolute Lymphocyte Count 1.55 X10^3/uL (0.83-4.51); Basophil# 0.04 X10^3/uL; Basophil% 0.6 % (0-1); Eosinophil# 0.16 X10^3/uL; Eosinophils% 2.6 % (0-5); Hematocrit 39.3 % (40-54); Hemoglobin 13.5 g/dL (13.0-16.5); Lymphocyte # 1.55 X10^3/ul (0.83-4.51); Mean Corp Hgb Conc 34.4 g/dL (32-36); Mean Corpuscular Hgb 29.9 pg (27.0-32.0); Mean Corpuscular Volume 86.9 fL (80-94); Mean Platelet Vol. 10.9 fl (6.2-12.0); Monocyte# 0.47 X10^3/uL; Monocyte% 7.6 % (0-10); NRBC Flagged by Analyzer 0 % (0-5); Neutrophil # 3.97 X10^3/uL (2.7-7.7); Neutrophil % 63.9 % (47-70); Platelet Count 181 K/mm3 (150-450); RBC Distribution Width CV 12.1 % (11.6-14.6); RBC Distribution Width SD 38.8 fl (35.1-43.9); Red Blood Count 4.52 M/mm3 (4.6-6.2); White Blood Count 6.2 K/mm3 (4.4-11.0)
[2022-04-27 23:39] VITALS: BP 124/76; PULSE 132; RESP 18; O2SAT 96
[2022-04-27 23:41] VITALS: BP 124/76; PULSE 125; RESP 18; O2SAT 93
[2022-04-27 23:47] LABS: International Normalized Ratio 1.4; Partial Thromboplast Time 44.4 Seconds (24.1-36.2)
[2022-04-28] VITALS (9 sets, daily range): BP systolic 116–161; BP diastolic 74–92; PULSE 55–88; RESP 13–18; TEMP 36.6; O2SAT 96–99
[2022-04-28 00:08] LABS: Anion Gap 6 (5-15); BUN 22 mg/dL (7-18); BUN/Creat Ratio 21.6 RATIO (10-20); Calcium,Total 9.2 mg/dL (8.5-10.1); Chloride 107 mmol/L (98-107); Creatinine, Serum 1.02 mg/dL (0.70-1.30); EST Glomerular Filtration Rate 75 mL/min (>60); Est Glom Filt Rate - Afr Amer 90 mL/min (>60); Estimated Creatinine Clearance 60.63 ml/min; Glucose 127 mg/dL (74-106); Magnesium 1.6 mg/dL (1.6-2.6); Potassium 3.8 mmol/L (3.5-5.1); Sodium Level 140 mmol/L (136-145); Thyroid Stim Hormone (TSH) 1.89 uIU/mL (0.358-3.74)
--- NOTE | 2022-04-28 01:46 | EDS_ITS ---
HPI History of Present Illness Chief Complaint: Palpitations Narrative Narrative: Patient is a 81-year-old male with past medical history of hypertension hyperlipidemia and paroxysmal atrial fibrillation status post ablation who is on long-term anticoagulation with Xarelto. He states he is had multiple cardioversions in the past secondary to his paroxysmal A. fib that would not resolve with medication. Patient states his last cardioversion was approximately 3 weeks ago. He states today he was just sitting at rest when he felt his heart start to race and beat erratically consistent with his previous A. fib bouts. He states he took an extra metoprolol which seemed to help reduce symptoms but not resolve them. He denies any excessive stimulant use and otherwise denies any chest pain shortness of breath headache or change in vision. [facility] Medical History Arthritis Atherosclerosis of [place] coronary artery of [place] heart without angina pectoris Atrial flutter Contusion of other part of head, sequela DDD (degenerative disc disease), cervical HLD (hyperlipidemia) HTN (hypertension) USP (current) use of anticoagulants ADAMA (obstructive sleep apnea) Paroxysmal atrial fibrillation Paroxysmal atrial tachycardia Persistent atrial fibrillation Premature atrial contractions Premature ventricular contraction Skin cancer Skin ulcer of forehead with fat layer exposed Ventricular ectopy Home Medications aspirin 81 mg chewable tablet 81 mg PO DAILY@0800 03/19/17 [History Last Taken 0 04/04/22] losartan 100 mg tablet 100 mg PO DAILY 07/10/18 [History Last Taken 04/04/22] cetirizine 10 mg tablet (24Hour Allergy) 5 mg PO DAILY 06/10/20 [History Last Taken 04/04/22] omeprazole 20 mg tablet,delayed release 20 mg PO DAILY 06/10/20 [History Last Taken 04/04/22] tadalafil 5 mg tablet (Cialis) 5 mg PO DAILY PRN ed 06/10/20 [History Last Taken Unknown] triamterene 37.5 mg-hydrochlorothiazide 25 mg tablet (Maxzide-25mg) 1 tab PO DAILY 06/10/20 [History Last Taken 04/04/22] rivaroxaban 20 mg tablet (Xarelto) 20 mg PO DAILY #90 tabs 03/28/21 [Rx Last Taken 04/04/22] acetaminophen 325 mg tablet 650 mg PO ONCE PRN Pain 05/19/21 [History Last Taken Unknown] metoprolol tartrate 50 mg tablet 50 mg PO BID #60 tabs 11/16/21 [Rx Last Taken 04/04/22] nitroglycerin 0.4 mg sublingual tablet 0.4 mg sublingual Q5M PRN Chest Pain #25 tabs 11/17/21 [Rx Last Taken Unknown] latanoprost 0.005 % eye drops (Xalatan) 1 drp EACH EYE QHS 03/13/22 [History Last Taken 04/04/22] Allergy/AdvReac Type Severity Reaction Status Date / Time No Known Drug Allergies Allergy Unknown Other Verified 04/27/22 22:39 Family History Father Lung cancer Surgical History History of left heart catheterization History of radiofrequency ablation procedure for cardiac arrhythmia (~04/28/20) Social History Smoking Status: Former smoker alcohol intake: former substance use type: does not use caffeine: Yes Type: coffee what type of physical activity do you participate in: none seatbelt use: sometimes do you feel safe at home: Yes additional social history: Does take Aspirin daily Does not take Ibuprofen ROS ROS ED Constitutional Constitutional ED: Denies chills or fever(s) ENT ENT ED: Denies sore throat Cardiovascular Cardiovascular: Reports palpitations and racing heartbeat; Denies chest pain Respiratory/Chest Respiratory/Chest: Denies cough or dyspnea Gastrointestinal Gastrointestinal: Denies abdominal pain, diarrhea, nausea or vomiting Genitourinary Genitourinary ED: Denies dysuria Musculoskeletal Musculoskeletal: Denies myalgias Integumentary Denies rash Neurologic Neurologic: Denies headache(s) Hematologic/Lymphatic Hematologic/Lymphatic: Reports easy bleeding and easy bruising EXAM Physical Exam Const Vital Signs: 04/27/22 22:37 04/27/22 22:44 04/27/22 23:39 Temperature 98.7 F Temperature Source Temporal Pulse Rate 136 H 132 H Pulse Rate [1 (Initial Baseline)] Pulse Rate [3] Respiratory Rate 16 18 Respiratory Rate [1 (Initial Baseline)] Respiratory Rate [3] Respiratory Effort Normal Non-Labored Blood Pressure 152/95 H 124/76 H Blood Pressure [1 (Initial Baseline)] Blood Pressure Mean 114 92 Pulse Ox 96 96 Oxygen Delivery Method Room Air Room Air Oxygen Delivery Method [1 (Initial Baseline)] Oxygen Delivery Method [3] Oxygen Flow Rate (L/min) Oxygen Flow Rate (L/min) [1 (Initial Baseline)] Oxygen Flow Rate (L/min) [3] 04/27/22 23:41 04/28/22 01:03 04/28/22 01:55 Temperature Temperature Source Pulse Rate 125 H 75 76 Pulse Rate [1 (Initial Baseline)] Pulse Rate [3] Respiratory Rate 18 15 18 Respiratory Rate [1 (Initial Baseline)] Respiratory Rate [3] Respiratory Effort Blood Pressure 124/76 H 124/74 H 116/75 Blood Pressure [1 (Initial Baseline)] Blood Pressure Mean 92 90 88 Pulse Ox 93 98 97 Oxygen Delivery Method Room Air Oxygen Delivery Method [1 (Initial Baseline)] Oxygen Delivery Method [3] Oxygen Flow Rate (L/min) Oxygen Flow Rate (L/min) [1 (Initial Baseline)] Oxygen Flow Rate (L/min) [3] 04/28/22 02:09 04/28/22 02:11 04/28/22 02:24 Temperature 97.9 F Temperature Source Pulse Rate 77 55 L Pulse Rate [1 (Initial Baseline)] 63 Pulse Rate [3] 88 Respiratory Rate 18 16 Respiratory Rate [1 (Initial Baseline)] 18 Respiratory Rate [3] 17 Respiratory Effort Blood Pressure 161/92 H 153/89 H Blood Pressure [1 (Initial Baseline)] 161/92 H Blood Pressure Mean Pulse Ox 97 99 Oxygen Delivery Method Room Air Nasal Cannula Oxygen Delivery Method [1 (Initial Baseline)] Nasal Cannula Oxygen Delivery Method [3] Nasal Cannula Oxygen Flow Rate (L/min) 2 Oxygen Flow Rate (L/min) [1 (Initial Baseline)] 2 Oxygen Flow Rate (L/min) [3] 2 04/28/22 02:38 04/28/22 02:38 04/28/22 02:29 Temperature Temperature Source Pulse Rate 60 57 L Pulse Rate [1 (Initial Baseline)] Pulse Rate [3] Respiratory Rate 18 14 Respiratory Rate [1 (Initial Baseline)] Respiratory Rate [3] Respiratory Effort Blood Pressure 133/77 H 126/76 H Blood Pressure [1 (Initial Baseline)] Blood Pressure Mean 95 Pulse Ox 96 97 Oxygen Delivery Method Room Air Room Air Room Air Oxygen Delivery Method [1 (Initial Baseline)] Oxygen Delivery Method [3] Oxygen Flow Rate (L/min) Oxygen Flow Rate (L/min) [1 (Initial Baseline)] Oxygen Flow Rate (L/min) [3] 04/28/22 02:34 Temperature Temperature Source Pulse Rate 56 L Pulse Rate [1 (Initial Baseline)] Pulse Rate [3] Respiratory Rate 13 Respiratory Rate [1 (Initial Baseline)] Respiratory Rate [3] Respiratory Effort Blood Pressure 133/77 H Blood Pressure [1 (Initial Baseline)] Blood Pressure Mean Pulse Ox 97 Oxygen Delivery Method Room Air Oxygen Delivery Method [1 (Initial Baseline)] Oxygen Delivery Method [3] Oxygen Flow Rate (L/min) Oxygen Flow Rate (L/min) [1 (Initial Baseline)] Oxygen Flow Rate (L/min) [3] Positive well nourished and well developed General Appearance ED: well developed Eyes PERRL and EOMs intact bilaterally Neck supple Resp normal respiratory effort and clear to auscultation bilaterally Cardio Rate: other Other Details: irregularly irregular rhythm with tachycardic rate consistent with atrial fibrillation GI non-tender and non-distended GI Narrative: No voluntary guarding or rigidity no pulsatile mass Auscultation: normoactive bowel sounds Palpation: soft Extremity normal to inspection Neuro oriented x3 and CN's II-XII intact bilaterally Sensorium / Orientation: alert Psych mental status grossly normal Skin no rashes or lesions noted MDM MDM MDM Narrative Medical decision making narrative: Patient presented to the ER and in atrial fibrillation with RVR consistent with his past history. Otherwise he is awake and alert with stable vital. As the patient is currently on metoprolol I elected to check basic laboratory studies searching for cause of the return of A. fib and he was started on a Cardizem drip. The Cardizem drip reduced his heart rate down to the 70s and 80s but he remained in atrial fibrillation. Lab work revealed no obvious cause such as electrolyte disturbance or anemia. Secondary to this the patient underwent cardioversion as documented below. Following cardioversion patient return to normal sinus rhythm and therefore with resolution of the A. fib and the fact t hat this is a known diagnosis there is no need for further work-up in the ER and patient is otherwise safe for discharge Patient underwent conscious sedation with synchronized cardioversion. Patient was given a total of 40 mg of propofol and 2.5 mg of Versed. Following this he underwent synchronized cardioversion at 100 J. After 1 cardioversion the patient converted from atrial fibrillation to sinus bradycardia. Patient tolerated procedure well without complication. Total conscious sedation time of approximately 10 minutes Lab Data Attestation: I reviewed the patient's lab results. Labs: Laboratory Results - last 24 hr 04/27/22 04/27/22 04/27/22 22:52 22:52 22:52 WBC 6.2 RBC 4.52 L Hgb 13.5 Hct 39.3 L MCV 86.9 MCH 29.9 MCHC 34.4 RDW Std Deviation 38.8 RDW Coeff of Lisa 12.1 Plt Count 181 MPV 10.9 Immature Gran % (Auto) 0.300 Neut % (Auto) 63.9 Lymph % (Auto) 25.0 Mcculloch % (Auto) 7.6 Eos % (Auto) 2.6 Baso % (Auto) 0.6 Absolute Neuts (auto) 4.0 Absolute Lymphs (auto) 1.55 Nucleated RBC % 0 PT 17.0 H INR 1.4 APTT 44.4 H Sodium 140 Potassium 3.8 Chloride 107 Carbon Dioxide 27.0 Anion Gap 6 BUN 22 H Creatinine 1.02 Estim Creat Clear Calc 60.63 Est GFR (MDRD) Af Amer 90 Est GFR (MDRD) Non-Af 75 BUN/Creatinine Ratio 21.6 H Glucose 127 H Calcium 9.2 Magnesium 1.6 TSH 1.89 Discharge Plan Triage Chief Complaint: Palpitations ED Provider: Ancelmo Long Dx/Rx/DC Orders Clinical Impression: Atrial fibrillation, Essential hypertension, Current use of lobsterman anticoagulation Instructions: AFib Prescriptions: No Action losartan 100 mg tablet 100 mg PO DAILY acetaminophen 325 mg tablet 650 mg PO ONCE PRN (Reason: Pain) nitroglycerin 0.4 mg tablet, sublingual 0.4 mg SUBLINGUAL Q5M PRN (Reason: Chest Pain) Qty: 25 1RF Label Comments: chest pain aspirin 81 MG tablet,chewable 81 mg PO DAILY@0800 Label Comments: stopped 03/19 for colonoscopy latanoprost [Xalatan] 0.005 % drops 1 drp EACH EYE QHS Label Comments: 1 drop in both eyes nightly cetirizine [24Hour Allergy] 10 mg tablet 5 mg PO DAILY triamterene-hydrochlorothiazid [Maxzide-25mg] 37.5-25 mg tablet 1 tab PO DAILY omeprazole 20 mg tablet,delayed release (DR/EC) 20 mg PO DAILY tadalafil [Cialis] 5 mg tablet 5 mg PO DAILY PRN (Reason: ed) Xarelto 20 mg tablet 20 mg PO DAILY Qty: 90 4RF metoprolol tartrate 50 mg tablet 50 mg PO BID Qty: 60 12RF Primary Care Provider: Kenneth Noland Referrals: Kenneth Noland DO [Primary Care Provider] - Activity Restrictions/Additional Instructions: Please continue all of your medications as previously directed and return to the ER should you have any further concerns Disposition Disposition: Home, Self Care
[2022-04-28] MEDS: Midazolam 5 MG/ML Syringe IV (01:56)
[2022-04-28] MEDS: Propofol 200 MG/20 ML Vial IV BOLUS (01:56)
[2022-04-28] MEDS: 0.9% Normal Saline 1,000 ML 999 ML IV (01:56)
--- NOTE | 2022-04-28 02:21 | EKG12_ITS ---
Test Reason : REPEAT Blood Pressure : / mmHG Vent. Rate : 054 BPM Atrial Rate : 054 BPM P-R Int : 164 ms QRS Dur : 132 ms QT Int : 472 ms P-R-T Axes : 068 -46 016 degrees QTc Int : 447 ms Sinus bradycardia Right bundle branch block Left anterior fascicular block Bifascicular block Cannot rule out Inferior infarct (masked by fascicular block?) , age undetermined Abnormal ECG Confirmed by FLORENCIA CLEMENTE, SAIMA ([id number]), video tape editor MEERA AWAD ([id number]) on 05/01/2022 9:34:07 AM Referred By: Confirmed By:JHOAN DON MD
== END 2022-04-28 03:11 | disposition home or self-care (01) ==
PROVIDERS: Emergency Provider Emergency Medicine; PCP Family Medicine; Visit Provider Emergency Medicine
DX: I48.0 Paroxysmal atrial fibrillation (principal); I10 Essential (primary) hypertension; G47.33 Obstructive sleep apnea (adult) (pediatric); I25.10 Atherosclerotic heart disease of native coronary artery without angina pectoris; M50.30 Other cervical disc degeneration, unspecified cervical region; Z87.891 Personal history of nicotine dependence; Z79.01 Long term (current) use of anticoagulants; Z79.899 Other long term (current) drug therapy; Z79.82 Long term (current) use of aspirin
CPT/HCPCS: 80048; 83735; 84443; 85025; 85610; 85730; 92960; 93005; 96365; 96366; 96375; 99281; J7030; A4216

== ENCOUNTER 2022-07-24 15:00 | Emergency (ER) | payer MEDICARE, SELFPAY ==
[2022-07-24] VITALS (12 sets, daily range): BP systolic 87–147; BP diastolic 50–122; PULSE 68–125; RESP 8–18; TEMP 36.5–37.1; O2SAT 95–100; BMI 33.0
--- NOTE | 2022-07-24 15:30 | EKG12_ITS ---
Test Reason : POST CARDIOVERT Blood Pressure : / mmHG Vent. Rate : 053 BPM Atrial Rate : 053 BPM P-R Int : 170 ms QRS Dur : 136 ms QT Int : 470 ms P-R-T Axes : 068 -21 025 degrees QTc Int : 441 ms Sinus bradycardia Right bundle branch block Inferior infarct , age undetermined Abnormal ECG Confirmed by TOPHER CLEMENTE, EDUARDO ([id number]), business editor MEERA AWAD ([id number]) on 07/25/2022 8:38:39 AM Referred By: Confirmed By:EDUARDO OBANDO MD
[2022-07-24 15:56] LABS: Absolute Lymphocyte Count 1.72 X10^3/uL (0.83-4.51); Absolute Neutrophil Count 2.8 X10^3/uL (2.0-7.7); Basophil# 0.03 X10^3/uL; Basophil% 0.6 % (0-1); Hematocrit 41.9 % (40-54); Hemoglobin 13.7 g/dL (13.0-16.5); Lymphocyte # 1.72 X10^3/ul (0.83-4.51); Lymphocyte % 34.2 % (19-41); Mean Corp Hgb Conc 32.7 g/dL (32-36); Mean Corpuscular Hgb 28.5 pg (27.0-32.0); Mean Corpuscular Volume 87.3 fL (80-94); Mean Platelet Vol. 10.9 fl (6.2-12.0); Monocyte# 0.34 X10^3/uL; Monocyte% 6.8 % (0-10); NRBC Flagged by Analyzer 0 % (0-5); Neutrophil # 2.83 X10^3/uL (2.7-7.7); Neutrophil % 56.2 % (47-70); Platelet Count 158 K/mm3 (150-450); RBC Distribution Width CV 12.7 % (11.6-14.6); RBC Distribution Width SD 40.4 fl (35.1-43.9)
--- NOTE | 2022-07-24 16:10 | EX.ED.DYSGE1 ---
HPI History of Present Illness Chief Complaint: Palpitations Narrative Narrative: 82-year-old male past medical history of atrial fibrillation/flutter is status post his second ablation in May, just over 2 months ago. He presents with his irregular heartbeat feeling and palpitations since yesterday morning. He states that recently he had climbed a couple flights of stairs and nothing happened but when he woke up yesterday, he felt the feeling in his chest that he was in atrial fibrillation again. He currently takes Xarelto and has not missed a dose in over 2 weeks. He states he takes it faithfully every morning. He called his elevator mechanic apprentice at [facility] who told him to take metoprolol which he usually takes. There was no reduction in his heart rate and he states that it was around 125 bpm. He has been cardioverted 6 times. He denies any nausea or vomiting. No fevers or chills. No cough or shortness of breath. This feels exactly like when he has his atrial fibrillation. No leg swelling or other symptoms. 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 ADAMA (obstructive sleep apnea) Paroxysmal atrial fibrillation Paroxysmal atrial tachycardia Persistent atrial fibrillation Premature atrial contractions Premature ventricular contraction Skin cancer Skin ulcer of forehead with fat layer exposed Ventricular ectopy Home Medications aspirin 81 mg chewable tablet 81 mg PO DAILY@0800 03/19/17 [History Last Taken 04/04/22] losartan 100 mg tablet 100 mg PO DAILY 07/10/18 [History Last Taken 04/04/22] cetirizine 10 mg tablet (24Hour Allergy) 5 mg PO DAILY 06/10/20 [History Last Taken 04/04/22] tadalafil 5 mg tablet (Cialis) 5 mg PO DAILY PRN ed 06/10/20 [History Last Taken Unknown] acetaminophen 325 mg tablet 650 mg PO ONCE PRN Pain 05/19/21 [History Last Taken Unknown] metoprolol tartrate 50 mg tablet 50 mg PO BID #60 tabs 11/16/21 [Rx Last Taken 04/04/22] nitroglycerin 0.4 mg sublingual tablet 0.4 mg sublingual Q5M PRN Chest Pain #25 tabs 11/17/21 [Rx Last Taken Unknown] latanoprost 0.005 % eye drops (Xalatan) 1 drp EACH EYE QHS 03/13/22 [History Last Taken 04/04/22] albuterol sulfate 90 mcg/actuation aerosol inhaler (Proventil HFA) 2 puff inhalation Q4H PRN 05/24/22 [History Last Taken Unknown] cyclobenzaprine 5 mg tablet 5 mg PO TID PRN 05/24/22 [History Last Taken Unknown] hydrochlorothiazide 25 mg tablet 25 mg PO DAILY 05/24/22 [History Last Taken Unknown] levothyroxine 50 mcg tablet 50 mcg PO DAILY 05/24/22 [History Last Taken Unknown] montelukast 10 mg tablet 10 mg PO QHS 05/24/22 [History Last Taken Unknown] rosuvastatin 5 mg tablet 5 mg PO DAILY 05/24/22 [History Last Taken Unknown] tamsulosin 0.4 mg capsule 0.4 mg PO DAILY 05/24/22 [History Last Taken Unknown] rivaroxaban 20 mg tablet (Xarelto) 20 mg PO DAILY #90 tabs 06/19/22 [Rx Last Taken Unknown] Allergy/AdvReac Type Severity Reaction Status Date / Time No Known Allergies Allergy Verified 07/24/22 15:04 Family History Father Lung cancer Surgical History History of left heart catheterization History of radiofrequency ablation procedure for cardiac arrhythmia (~05/23/22) Social History Smoking Status: Former smoker alcohol intake: former substance use type: does not use caffeine: Yes Type: coffee what type of physical activity do you participate in: none seatbelt use: sometimes do you feel safe at home: Yes additional social history: Does take Aspirin daily Does not take Ibuprofen ROS ROS ED ROS Narrative Constitutional: No fever, no chills. HEENT: No sore throat. No neck pain. No loss of vision. No rhinorrhea. Cardiovascular: No chest pain. Positive palpitations similar to his previous atrial fibrillation. Elevated heart rate. No pedal edema. Respiratory: No cough, no shortness of breath. Abdominal: No abdominal pain. No nausea. No vomiting. Genitourinary: No dysuria. No hematuria. Musculoskeletal: No myalgias. No arthralgias. Neurologic: No headaches. No dizziness. No lightheadedness. Skin: No rash. No change in color. Psychiatric: No depression. No anxiety. EXAM Physical Exam Narrative Exam Narrative: Afebrile. Vital signs noted. HEENT: Normocephalic. Atraumatic. PERRL, EOMI. Neck soft and supple. No point tenderness or step off. Cardiovascular: Irregularly irregular intermittent tachycardia as high as 125 bpm, but sometimes will slow down into the 70s and 80s. No murmurs, rubs, or gallops appreciated. Respiratory: No tachypnea. Lungs clear to auscultation bilaterally. Gastrointestinal: Abdomen soft, nontender, with normoactive bowel sounds. No rebound or guarding. Neurological: Awake. Alert. Nonfocal, nonlateralizing. Skin: No rash. Normal color. No pallor. Musculoskeletal: No pedal edema. Full range of motion extremities. Const Vital Signs: 07/24/22 15:04 07/24/22 16:26 07/24/22 16:26 Temperature 97.7 F L Temperature Source Temporal Pulse Rate 125 H 92 Pulse Rate [1 (Initial Baseline)] Pulse Rate [2] Pulse Rate [3] Pulse Rate [4] Respiratory Rate 18 15 Respiratory Rate [1 (Initial Baseline)] Respiratory Rate [2] Respiratory Rate [3] Respiratory Rate [4] Respiratory Effort Blood Pressure 147/122 H 94/65 Blood Pressure [1 (Initial Baseline)] Blood Pressure [2] Blood Pressure [3] Blood Pressure [4] Blood Pressure Mean 130 74 Pulse Ox 99 96 Oxygen Delivery Method Room Air Room Air Room Air Oxygen Delivery Method [1 (Initial Baseline)] Oxygen Delivery Method [2] Oxygen Delivery Method [3] Oxygen Delivery Method [4] Oxygen Flow Rate (L/min) Oxygen Flow Rate (L/min) [1 (Initial Baseline)] Oxygen Flow Rate (L/min) [2] Oxygen Flow Rate (L/min) [3] Oxygen Flow Rate (L/min) [4] 07/24/22 16:30 07/24/22 17:28 07/24/22 17:32 Temperature Temperature Source Pulse Rate 90 Pulse Rate [1 (Initial Baseline)] 108 H Pulse Rate [2] 86 Pulse Rate [3] 80 Pulse Rate [4] 80 Respiratory Rate 18 Respiratory Rate [1 (Initial Baseline)] 14 Respiratory Rate [2] 15 Respiratory Rate [3] 8 L Respiratory Rate [4] 11 L Respiratory Effort Normal Non-Labored Blood Pressure 125/82 H Blood Pressure [1 (Initial Baseline)] 125/82 H Blood Pressure [2] 90/65 Blood Pressure [3] 90/50 L Blood Pressure [4] 97/58 L Blood Pressure Mean Pulse Ox 99 Oxygen Delivery Method Room Air Oxygen Delivery Method [1 (Initial Baseline)] Nasal Cannula Oxygen Delivery Method [2] Nasal Cannula Oxygen Delivery Method [3] Nasal Cannula Oxygen Delivery Method [4] Nasal Cannula Oxygen Flow Rate (L/min) Oxygen Flow Rate (L/min) [1 (Initial Baseline)] 3 Oxygen Flow Rate (L/min) [2] 3 Oxygen Flow Rate (L/min) [3] 6 Oxygen Flow Rate (L/min) [4] 6 07/24/22 17:50 07/24/22 17:55 07/24/22 18:00 Temperature Temperature Source Pulse Rate Pulse Rate [1 (Initial Baseline)] Pulse Rate [2] Pulse Rate [3] Pulse Rate [4] Respiratory Rate Respiratory Rate [1 (Initial Baseline)] Respiratory Rate [2] Respiratory Rate [3] Respiratory Rate [4] Respiratory Effort Blood Pressure Blood Pressure [1 (Initial Baseline)] Blood Pressure [2] Blood Pressure [3] Blood Pressure [4] Blood Pressure Mean Pulse Ox Oxygen Delivery Method Nasal Cannula Room Air Room Air Oxygen Delivery Method [1 (Initial Baseline)] Oxygen Delivery Method [2] Oxygen Delivery Method [3] Oxygen Delivery Method [4] Oxygen Flow Rate (L/min) 4 0 Oxygen Flow Rate (L/min) [1 (Initial Baseline)] Oxygen Flow Rate (L/min) [2] Oxygen Flow Rate (L/min) [3] Oxygen Flow Rate (L/min) [4] 07/24/22 18:05 07/24/22 18:10 07/24/22 18:15 Temperature Temperature Source Pulse Rate Pulse Rate [1 (Initial Baseline)] Pulse Rate [2] Pulse Rate [3] Pulse Rate [4] Respiratory Rate Respiratory Rate [1 (Initial Baseline)] Respiratory Rate [2] Respiratory Rate [3] Respiratory Rate [4] Respiratory Effort Blood Pressure Blood Pressure [1 (Initial Baseline)] Blood Pressure [2] Blood Pressure [3] Blood Pressure [4] Blood Pressure Mean Pulse Ox Oxygen Delivery Method Room Air Room Air Room Air Oxygen Delivery Method [1 (Initial Baseline)] Oxygen Delivery Method [2] Oxygen Delivery Method [3] Oxygen Delivery Method [4] Oxygen Flow Rate (L/min) Oxygen Flow Rate (L/min) [1 (Initial Baseline)] Oxygen Flow Rate (L/min) [2] Oxygen Flow Rate (L/min) [3] Oxygen Flow Rate (L/min) [4] MDM MDM MDM Narrative Medical decision making narrative: EKG was obtained and interpreted by myself which demonstrates atrial flutter with variable AV block at 125 bpm. I will obtain a chest x-ray, CBC, CMP, and troponin. He was also administered Lopressor 5 mg intravenously in an attempt to reduce his heart rate and perhaps he will cardiovert on his own. However, he informed me later that yesterday he took an extra metoprolol, and then this afternoon he took an additional dose. He had a decrease in his blood pressure into the 80s systolic but he is still mentating. His heart rate is down in the 90s. Metoprolol was held. CBC is grossly normal. Electrolyte panel is grossly unremarkable except for a BUN of 37 and a creatinine of 1.22. He was started on a normal saline bolus of 1 L. High-sensitivity troponin is 19. Chest x-ray in 1 view interpreted by myself shows no acute process, no pneumonia. As he has not yet cardioverted and his heart rate is in the 90s and he is somewhat rate controlled, he was consented for cardioversion. He was consented for procedural sedation and cardioversion. Cardioversion was performed using a total of 100 mg of propofol. Synchronized cardioversion at 150 J was performed with good success. His repeat EKG that I interpreted demonstrates normal sinus rhythm at [address] changes. No STEMI. At this point in time, upon repeat examination after sedation, he is awake, alert, and feels well. He will follow-up with his elevator mechanic apprentice's tomorrow by calling their offices. Disposition is discharged home in improved and stable condition. Lab Data Attestation: I reviewed the patient's lab results. Labs: Laboratory Results - last 24 hr 07/24/22 07/24/22 07/24/22 15:25 15:25 16:30 WBC 5.0 RBC 4.80 Hgb 13.7 Hct 41.9 MCV 87.3 MCH 28.5 MCHC 32.7 RDW Std Deviation 40.4 RDW Coeff of Lisa 12.7 Plt Count 158 MPV 10.9 Immature Gran % (Auto) 0.200 Neut % (Auto) 56.2 Lymph % (Auto) 34.2 Converse % (Auto) 6.8 Eos % (Auto) 2.0 Baso % (Auto) 0.6 Absolute Neuts (auto) 2.8 Absolute Lymphs (auto) 1.72 Nucleated RBC % 0 Sodium 140 139 Potassium 3.8 3.8 Chloride 107 106 Carbon Dioxide 26.0 29.0 Anion Gap 7 4 L BUN 37 H 36 H Creatinine 1.22 1.24 Estim Creat Clear Calc 49.86 49.06 Est GFR (MDRD) Af Amer 74 72 Est GFR (MDRD) Non-Af 61 60 BUN/Creatinine Ratio 30.3 H 29.0 H Glucose 130 H 100 Calcium 9.5 9.2 Total Bilirubin 0.40 AST 23 ALT 28 Alkaline Phosphatase 61 Troponin I High Sens 19 20 Total Protein 7.3 Albumin 3.7 Globulin 3.6 Albumin/Globulin Ratio 1.0 Radiography Diagnostic Testing: Clinical Impression(s) from Imaging Studies Chest X-Ray 07/24/22 16:15 IMPRESSION: No radiographic evidence of acute cardiopulmonary disease. Electronically Signed: Ector Bundy MD at 16:32 EST , Discharge Plan Triage Chief Complaint: Palpitations ED Provider: Amador Estes Dx/Rx/DC Orders Clinical Impression: Atrial flutter, Paroxysmal atrial fibrillation, Encounter for cardioversion procedure Instructions: ED AFIB, ED Procedural Sedation, (Adult) Prescriptions: No Action losartan 100 mg tablet 100 mg PO DAILY acetaminophen 325 mg tablet 650 mg PO ONCE PRN (Reason: Pain) nitroglycerin 0.4 mg tablet, sublingual 0.4 mg SUBLINGUAL Q5M PRN (Reason: Chest Pain) Qty: 25 1RF Label Comments: chest pain aspirin 81 MG tablet,chewable 81 mg PO DAILY@0800 Label Comments: stopped 03/19 for colonoscopy latanoprost [Xalatan] 0.005 % drops 1 drp EACH EYE QHS Label Comments: 1 drop in both eyes nightly cetirizine [24Hour Allergy] 10 mg tablet 5 mg PO DAILY tadalafil [Cialis] 5 mg tablet 5 mg PO DAILY PRN (Reason: ed) metoprolol tartrate 50 mg tablet 50 mg PO BID Qty: 60 12RF cyclobenzaprine 5 mg tablet 5 mg PO TID PRN rosuvastatin 5 mg tablet 5 mg PO DAILY hydrochlorothiazide 25 mg tablet 25 mg PO DAILY tamsulosin 0.4 mg capsule 0.4 mg PO DAILY levothyroxine 50 mcg tablet 50 mcg PO DAILY montelukast 10 mg tablet 10 mg PO QHS albuterol sulfate [Proventil HFA] 90 mcg/actuation HFA aerosol inhaler 2 puff inhalation Q4H PRN Xarelto 20 mg tablet 20 mg PO DAILY Qty: 90 4RF Primary Care Provider: Kenneth Noland Referrals: Kenneth Noland DO [Primary Care Provider] - Activity Restrictions/Additional Instructions: Follow-up with your elevator mechanic apprentice at [facility], and here, by calling them tomorrow. Disposition Disposition: Home, Self Care
[2022-07-24 16:15] LABS: Anion Gap 7 (5-15); BUN 37 mg/dL (7-18); BUN/Creat Ratio 30.3 RATIO (10-20); Calcium,Total 9.5 mg/dL (8.5-10.1); Chloride 107 mmol/L (98-107); Creatinine, Serum 1.22 mg/dL (0.70-1.30); EST Glomerular Filtration Rate 61 mL/min (>60); Est Glom Filt Rate - Afr Amer 74 mL/min (>60); Estimated Creatinine Clearance 49.86 ml/min; Glucose 130 mg/dL (74-106); Potassium 3.8 mmol/L (3.5-5.1); Sodium Level 140 mmol/L (136-145); Troponin-I HS 19 pg/mL (3.0-78.0)
--- NOTE | 2022-07-24 16:15 | RAD_ITS ---
EXAM: XR CHEST, 1 VIEW CLINICAL INDICATION: CAD TECHNIQUE: Frontal view of the chest. This report was created using [employer] report generation technology. COMPARISON: 04/12/2022 FINDINGS: LUNGS AND PLEURAL SPACES: Unremarkable. No consolidation or edema. No pneumothorax. No effusion. HEART: Unremarkable. Cardiac silhouette not enlarged. MEDIASTINUM: Central airways and mediastinal contour are unremarkable. BONES/JOINTS: Unremarkable. SOFT TISSUES: Unremarkable. RAD/Chest 1 View (Portable) IMPRESSION: No radiographic evidence of acute cardiopulmonary disease. Electronically Signed: Ector Bundy MD at 16:32 EST ,
[2022-07-24] MEDS: 0.9% Normal Saline 1,000 ML 999 ML IV (16:38)
[2022-07-24 16:58] LABS: AST(SGOT) 23 U/L (15-37); Alanine Aminotransfer ALT/SGPT 28 U/L (16-61); Albumin, Serum 3.7 g/dL (3.2-5.0); Alkaline Phosphatase 61 U/L (45-117); Anion Gap 4 (5-15); BUN 36 mg/dL (7-18); Calcium,Total 9.2 mg/dL (8.5-10.1); Chloride 106 mmol/L (98-107); Creatinine, Serum 1.24 mg/dL (0.70-1.30); EST Glomerular Filtration Rate 60 mL/min (>60); Est Glom Filt Rate - Afr Amer 72 mL/min (>60); Estimated Creatinine Clearance 49.06 ml/min; Globulin 3.6 g/dL (2.2-4.2); Glucose 100 mg/dL (74-106); Potassium 3.8 mmol/L (3.5-5.1); Protein, Total 7.3 g/dL (6.4-8.2); Sodium Level 139 mmol/L (136-145); Troponin-I HS 20 pg/mL (3.0-78.0)
--- NOTE | 2022-07-24 17:52 | EKG12_ITS ---
Test Reason : PALP Blood Pressure : / mmHG Vent. Rate : 125 BPM Atrial Rate : 258 BPM P-R Int : 000 ms QRS Dur : 132 ms QT Int : 366 ms P-R-T Axes : 229 263 -20 degrees QTc Int : 528 ms Atrial flutter with variable A-V block Right bundle branch block Inferior infarct , age undetermined Abnormal ECG Confirmed by TOPHER CLEMENTE, EDUARDO ([id number]), medical editor MEERA AWAD ([id number]) on 07/25/2022 8:38:58 AM Referred By: LY Confirmed By:EDUARDO OBANDO MD
[2022-07-24] MEDS: Propofol 200 MG/20 ML Vial IV BOLUS (18:03)
== END 2022-07-24 19:56 | disposition home or self-care (01) ==
PROVIDERS: Emergency Provider Emergency Medicine; PCP Family Medicine; Visit Provider Emergency Medicine
DX: I48.92 Unspecified atrial flutter (principal); I48.0 Paroxysmal atrial fibrillation; I25.10 Atherosclerotic heart disease of native coronary artery without angina pectoris; G47.33 Obstructive sleep apnea (adult) (pediatric); Z87.891 Personal history of nicotine dependence
CPT/HCPCS: 36591; 71045; 80048; 80053; 84484; 85025; 93005; 99152; 99285; J7030; A4216

== ENCOUNTER 2022-09-01 22:54 | Emergency (ER) | payer MEDICARE, SELFPAY ==
[2022-09-01 22:56] VITALS: BP 167/88; PULSE 142; RESP 18; TEMP 36.5; O2SAT 97; BMI 34.4
--- NOTE | 2022-09-01 23:09 | EKG12_ITS ---
Test Reason : AFIB-RVR Blood Pressure : / mmHG Vent. Rate : 111 BPM Atrial Rate : 111 BPM P-R Int : 168 ms QRS Dur : 130 ms QT Int : 356 ms P-R-T Axes : 097 -03 016 degrees QTc Int : 484 ms Sinus tachycardia Right bundle branch block Inferior infarct , age undetermined, cannot be excluded Abnormal ECG Confirmed by MAHESH CLEMENTE, SHAUN ([id number]), marketing editor MEERA AWAD ([id number]) on 09/05/2022 11:45:38 AM Referred By: MIROSLAVA Confirmed By:SHAUN ARAGON MD
--- NOTE | 2022-09-01 23:10 | RAD_ITS ---
INDICATION: chest pain EXAMINATION/TECHNIQUE: X-RAY - XR Chest 1 View AP portable. 11:21 PM. COMPARISON: 07/24/2022 FINDINGS: LINES/DEVICES: None. LUNGS: No consolidation. No pneumothorax. MEDIASTINUM: Aorta is atherosclerotic. CARDIAC SILHOUETTE: Not enlarged. BONES AND SOFT TISSUES: Degenerative changes in the dorsal spine. RAD/Chest 1 View (Portable) IMPRESSION: No evidence of active intrathoracic disease. Electronically Signed: Kat Blum MD at 23:29 EST ,
[2022-09-01 23:32] LABS: International Normalized Ratio 1.7; Prothrombin Time (Protime)PT. 19.2 SECONDS (11.7-14.9)
[2022-09-01 23:44] LABS: Anion Gap 4 (5-15); BUN 34 mg/dL (7-18); Calcium,Total 9.5 mg/dL (8.5-10.1); Chloride 109 mmol/L (98-107); Creatinine, Serum 1.26 mg/dL (0.70-1.30); EST Glomerular Filtration Rate 59 mL/min (>60); Est Glom Filt Rate - Afr Amer 71 mL/min (>60); Estimated Creatinine Clearance 48.28 ml/min; Glucose 147 mg/dL (74-106); Potassium 3.7 mmol/L (3.5-5.1); Sodium Level 141 mmol/L (136-145); Troponin-I HS 12 pg/mL (3.0-78.0)
[2022-09-01 23:45] LABS: Absolute Lymphocyte Count 1.78 X10^3/uL (0.83-4.51); Absolute Neutrophil Count 3.1 X10^3/uL (2.0-7.7); Basophil# 0.03 X10^3/uL; Basophil% 0.5 % (0-1); Eosinophil# 0.14 X10^3/uL; Eosinophils% 2.6 % (0-5); Hemoglobin 13.4 g/dL (13.0-16.5); Lymphocyte # 1.78 X10^3/ul (0.83-4.51); Lymphocyte % 32.4 % (19-41); Mean Corp Hgb Conc 33.5 g/dL (32-36); Mean Corpuscular Hgb 29.7 pg (27.0-32.0); Mean Corpuscular Volume 88.7 fL (80-94); Monocyte# 0.48 X10^3/uL; Monocyte% 8.7 % (0-10); NRBC Flagged by Analyzer 0 % (0-5); Neutrophil # 3.05 X10^3/uL (2.7-7.7); Neutrophil % 55.6 % (47-70); Platelet Count 152 K/mm3 (150-450); RBC Distribution Width CV 12.7 % (11.6-14.6); RBC Distribution Width SD 40.9 fl (35.1-43.9); Red Blood Count 4.51 M/mm3 (4.6-6.2); White Blood Count 5.5 K/mm3 (4.4-11.0)
[2022-09-02 00:30] LABS: Magnesium 1.9 mg/dL (1.6-2.6); Thyroid Stim Hormone (TSH) 2.79 uIU/mL (0.358-3.74)
[2022-09-02] MEDS: Metoprolol Tartrate 5 MG/5 ML Vial IV (00:37)
[2022-09-02] MEDS: dilTIAZem 25 MG/5 ML Vial 15 MG IV BOLUS (01:23)
[2022-09-02 01:25] VITALS: BP 140/96; PULSE 109; RESP 16; O2SAT 97
[2022-09-02 01:40] VITALS: BP 114/82; PULSE 82; RESP 73; O2SAT 97
--- NOTE | 2022-09-02 01:52 | EKG12_ITS ---
Test Reason : REPEAT, AFIB Blood Pressure : / mmHG Vent. Rate : 072 BPM Atrial Rate : 250 BPM P-R Int : 000 ms QRS Dur : 144 ms QT Int : 418 ms P-R-T Axes : 000 -29 001 degrees QTc Int : 457 ms Atrial flutter with variable A-V block Right bundle branch block Abnormal ECG Confirmed by MAHESH CLEMENTE, SHAUN ([id number]), associate editor MEERA AWAD ([id number]) on 09/05/2022 11:45:54 AM Referred By: MIROSLAVA Confirmed By:SHAUN ARAGON MD
--- NOTE | 2022-09-02 02:21 | EDS_ITS ---
HPI History of Present Illness Chief Complaint: Palpitations Narrative Narrative: Patient is an 82-year-old male with past medical history of paroxysmal atrial fibrillation. He underwent an ablation for this roughly 3 months ago. 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 He states around 10:00 in the evening however he felt like his heart began beating very rapidly. He states that it did this before when he would go into atrial fibrillation and with this concern presents for evaluation. He does state that he is on Xarelto and states he has not missed any dosages. He also denies any stimulant ingestion which could have caused the tachycardia [facility] Medical History Arthritis Atherosclerosis of [place] coronary artery of [place] heart without angina pectoris Atrial flutter Contusion of other part of head, sequela DDD (degenerative disc disease), cervical HLD (hyperlipidemia) HTN (hypertension) jail (current) use of anticoagulants ADAMA (obstructive sleep apnea) Paroxysmal atrial fibrillation Paroxysmal atrial tachycardia Persistent atrial fibrillation Premature atrial contractions Premature ventricular contraction Skin cancer Skin ulcer of forehead with fat layer exposed Ventricular ectopy Home Medications aspirin 81 mg chewable tablet 81 mg PO DAILY@0800 03/19/17 [History Last Taken 04/04/22] losartan 100 mg tablet 100 mg PO DAILY 07/10/18 [History Last Taken 04/04/22] cetirizine 10 mg tablet (24Hour Allergy) 5 mg PO DAILY 06/10/20 [History Last Taken 04/04/22] tadalafil 5 mg tablet (Cialis) 5 mg PO DAILY PRN ed 06/10/20 [History Last Taken Unknown] acetaminophen 325 mg tablet 650 mg PO ONCE PRN Pain 05/19/21 [History Last Taken Unknown] metoprolol tartrate 50 mg tablet 50 mg PO BID #60 tabs 11/16/21 [Rx Last Taken 04/04/22] nitroglycerin 0.4 mg sublingual tablet 0.4 mg sublingual Q5M PRN Chest Pain #25 tabs 11/17/21 [Rx Last Taken Unknown] latanoprost 0.005 % eye drops (Xalatan) 1 drp EACH EYE QHS 03/13/22 [History Last Taken 04/04/22] albuterol sulfate 90 mcg/actuation aerosol inhaler (Proventil HFA) 2 puff inhalation Q4H PRN 05/24/22 [History Last Taken Unknown] cyclobenzaprine 5 mg tablet 5 mg PO TID PRN 05/24/22 [History Last Taken Unknown] hydrochlorothiazide 25 mg tablet 25 mg PO DAILY 05/24/22 [History Last Taken Unknown] levothyroxine 50 mcg tablet 50 mcg PO DAILY 05/24/22 [History Last Taken Unknown] montelukast 10 mg tablet 10 mg PO QHS 05/24/22 [History Last Taken Unknown] rosuvastatin 5 mg tablet 5 mg PO DAILY 05/24/22 [History Last Taken Unknown] tamsulosin 0.4 mg capsule 0.4 mg PO DAILY 05/24/22 [History Last Taken Unknown] rivaroxaban 20 mg tablet (Xarelto) 20 mg PO DAILY #90 tabs 06/19/22 [Rx Last Taken Unknown] diltiazem HCl 60 mg tablet (Cardizem) 60 mg PO TID 30 days #90 tabs 09/02/22 [Rx Last Taken Unknown] Allergy/AdvReac Type Severity Reaction Status Date / Time No Known Allergies Allergy Verified 09/01/22 22:56 Family History Father Lung cancer Surgical History History of left heart catheterization History of radiofrequency ablation procedure for cardiac arrhythmia (~05/23/22) Social History Smoking Status: Former smoker alcohol intake: former substance use type: does not use caffeine: Yes Type: coffee what type of physical activity do you participate in: none seatbelt use: sometimes do you feel safe at home: Yes additional social history: Does take Aspirin daily Does not take Ibuprofen ROS ROS ED Constitutional Constitutional ED: Denies chills or fever(s) Eyes Eyes: Denies change in vision ENT ENT ED: Denies sore throat Cardiovascular Cardiovascular: Reports palpitations and racing heartbeat; Denies chest pain Respiratory/Chest Respiratory/Chest: Denies cough or dyspnea Gastrointestinal Gastrointestinal: Denies abdominal pain, diarrhea, nausea or vomiting Genitourinary Genitourinary ED: Denies dysuria Musculoskeletal Musculoskeletal: Denies myalgias Integumentary Denies rash Neurologic Neurologic: Denies headache(s) Hematologic/Lymphatic Hematologic/Lymphatic: Reports easy bleeding and easy bruising EXAM Physical Exam Const Vital Signs: 09/01/22 22:56 09/01/22 23:09 09/02/22 01:25 Temperature 97.7 F L Temperature Source Temporal Pulse Rate 142 H 109 H Respiratory Rate 18 16 Blood Pressure 167/88 H 140/96 H Blood Pressure Mean 114 110 Pulse Ox 97 97 Oxygen Delivery Method Room Air Room Air Room Air 09/02/22 01:40 09/02/22 02:32 Temperature Temperature Source Pulse Rate 82 83 Respiratory Rate 73 H 16 Blood Pressure 114/82 H 126/80 H Blood Pressure Mean 92 Pulse Ox 97 97 Oxygen Delivery Method Room Air Positive well nourished and well developed General Appearance ED: well developed HEENT Reports moist mucous membranes Eyes PERRL and EOMs intact bilaterally Neck supple and no JVD Resp normal respiratory effort and clear to auscultation bilaterally Cardio regular rhythm Rate: tachycardic and other Other Details: Radial pulses are +2-4 bilaterally are equal and symmetric GI normal to inspection, nondistended, normoactive bowel sounds, non-tender, non- distended and no masses GI Narrative: No voluntary guarding or rigidity no pulsatile mass Auscultation: normoactive bowel sounds Palpation: soft Extremity Extremity Narrative: Trace pitting edema to the bilateral lower extremities that is equal and symmetric with negative Homans' sign bilaterally Neuro oriented x3 and CN's II-XII intact bilaterally Sensorium / Orientation: alert Psych mental status grossly normal Skin no rashes or lesions noted MDM MDM MDM Narrative Medical decision making narrative: Patient presented to the ER tachycardic but initial EKG and physical exam indicated this was more sinus tachycardia than a cardiac dysrhythmia. Basic blood work was obtained to check for possible cause of the palpitations and there was no acute findings noted. The patient was given metoprolol by IV route without any reduction in heart rate therefore Cardizem was added. After Cardizem was given the patient's heart rate reduced to 75-80. At this time it became irregular and repeat EKG shows atrial flutter. The patient is anticoagulated he is awake alert and oriented and vitals are stable and he has no severe electrolyte derangements or signs of cardiac damage. Therefore there is no need for an emergent cardioversion. 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 Patient and state they are agreeable with this plan and therefore as vitals are stable heart rate is now within regular range and patient is anticoagulated he is safe for discharge Lab Data Attestation: I reviewed the patient's lab results. Labs: Laboratory Results - last 24 hr 09/01/22 09/01/22 09/01/22 23:20 23:20 23:20 WBC 5.5 RBC 4.51 L Hgb 13.4 Hct 40.0 MCV 88.7 MCH 29.7 MCHC 33.5 RDW Std Deviation 40.9 RDW Coeff of Lisa 12.7 Plt Count 152 MPV 11.0 Immature Gran % (Auto) 0.200 Neut % (Auto) 55.6 Lymph % (Auto) 32.4 [place] % (Auto) 8.7 Eos % (Auto) 2.6 Baso % (Auto) 0.5 Absolute Neuts (auto) 3.1 Absolute Lymphs (auto) 1.78 Nucleated RBC % 0 PT 19.2 H INR 1.7 Sodium 141 Potassium 3.7 Chloride 109 H Carbon Dioxide 28.0 Anion Gap 4 L BUN 34 H Creatinine 1.26 Estim Creat Clear Calc 48.28 Est GFR (MDRD) Af Amer 71 Est GFR (MDRD) Non-Af 59 L BUN/Creatinine Ratio 27.0 H Glucose 147 H Calcium 9.5 Magnesium Troponin I High Sens 12 TSH 09/01/22 23:20 WBC RBC Hgb Hct MCV MCH MCHC RDW Std Deviation RDW Coeff of Lisa Plt Count MPV Immature Gran % (Auto) Neut % (Auto) Lymph % (Auto) [place] % (Auto) Eos % (Auto) Baso % (Auto) Absolute Neuts (auto) Absolute Lymphs (auto) Nucleated RBC % PT INR Sodium Potassium Chloride Carbon Dioxide Anion Gap BUN Creatinine Estim Creat Clear Calc Est GFR (MDRD) Af Amer Est GFR (MDRD) Non-Af BUN/Creatinine Ratio Glucose Calcium Magnesium 1.9 Troponin I High Sens TSH 2.79 Radiography Diagnostic Testing: Clinical Impression(s) from Imaging Studies Chest X-Ray 09/01/22 23:10 IMPRESSION: No evidence of active intrathoracic disease. Electronically Signed: Kat Blum MD at 23:29 EST , Chest x-ray as interpreted by the emergency medicine physician reveals no acute infiltrate pneumothorax or pleural effusion Discharge Plan Triage Chief Complaint: Palpitations ED Provider: Ancelmo Long Dx/Rx/DC Orders Clinical Impression: Paroxysmal atrial fibrillation, Current use of assisted anticoagulation Instructions: AFib, ED Atrial Flutter Prescriptions: New diltiazem HCl [Cardizem] 60 mg tablet 60 mg PO TID 30 Days Qty: 90 0RF No Action losartan 100 mg tablet 100 mg PO DAILY acetaminophen 325 mg tablet 650 mg PO ONCE PRN (Reason: Pain) nitroglycerin 0.4 mg tablet, sublingual 0.4 mg SUBLINGUAL Q5M PRN (Reason: Chest Pain) Qty: 25 1RF Label Comments: chest pain aspirin 81 MG tablet,chewable 81 mg PO DAILY@0800 Label Comments: stopped 03/19 for colonoscopy latanoprost [Xalatan] 0.005 % drops 1 drp EACH EYE QHS Label Comments: 1 drop in both eyes nightly cetirizine [24Hour Allergy] 10 mg tablet 5 mg PO DAILY tadalafil [Cialis] 5 mg tablet 5 mg PO DAILY PRN (Reason: ed) metoprolol tartrate 50 mg tablet 50 mg PO BID Qty: 60 12RF cyclobenzaprine 5 mg tablet 5 mg PO TID PRN rosuvastatin 5 mg tablet 5 mg PO DAILY hydrochlorothiazide 25 mg tablet 25 mg PO DAILY tamsulosin 0.4 mg capsule 0.4 mg PO DAILY levothyroxine 50 mcg tablet 50 mcg PO DAILY montelukast 10 mg tablet 10 mg PO QHS albuterol sulfate [Proventil HFA] 90 mcg/actuation HFA aerosol inhaler 2 puff inhalation Q4H PRN Xarelto 20 mg tablet 20 mg PO DAILY Qty: 90 4RF Primary Care Provider: Kenneth Noland Referrals: Kenneth Noland DO [Primary Care Provider] - Activity Restrictions/Additional Instructions: Please continue all your medication as previously directed. If you develop a elevated heart rate once again please take the prescribed Cardizem and sit down and wait roughly 1 hour. If there is resolution of the fast heart rate then you are fine to stay home and go about your normal activities but if symptoms persist then you must return to the ER for repeat evaluation. Disposition Disposition: Home, Self Care Discharge Date/Time: 09/02/22 02:33
[2022-09-02 02:32] VITALS: BP 126/80; PULSE 83; RESP 16; O2SAT 97
== END 2022-09-02 02:33 | disposition home or self-care (01) ==
PROVIDERS: Emergency Provider Emergency Medicine; PCP Family Medicine; Visit Provider Emergency Medicine
DX: I48.0 Paroxysmal atrial fibrillation (principal); I48.92 Unspecified atrial flutter; I25.10 Atherosclerotic heart disease of native coronary artery without angina pectoris; I10 Essential (primary) hypertension; R00.2 Palpitations; E78.5 Hyperlipidemia, unspecified; Z79.01 Long term (current) use of anticoagulants; Z87.891 Personal history of nicotine dependence
CPT/HCPCS: 71045; 80048; 83735; 84443; 84484; 85025; 85610; 93005; 96374; 96375; 99285; A4216

== ENCOUNTER → 2022-09-11 | Outpatient (CLI) | payer MEDICARE, SELFPAY ==
--- NOTE | 2022-09-11 09:02 | CDU_ITS ---
Reason For Study: Dizzinessm carotid artery stenosis Rt. Velocities/BP Lt. Velocities/BP Prox CCA 65.5/10.7 cm/sec. Prox CCA 97.1/20.1 cm/sec. Mid CCA 61.7/10.7 cm/sec. Mid CCA 77.3/13.5 cm/sec. Dist CCA 59.8/13.5 cm/sec. Dist CCA 69.6/14.6 cm/sec. Prox ICA 113.3/21.2 cm/sec. Prox ICA 93.8/26.7 cm/sec. Mid ICA 139/42.4 cm/sec. Mid ICA 57.5/17.9 cm/sec. Dist ICA 88.2/22.5 cm/sec. Dist ICA 55.3/20.1 cm/sec. Rt. ICA/CCA = 2.25. Lt. ICA/CCA = 1.21. Prox ECA 92.7/10.2 cm/sec. Prox ECA 78.4/6.9 cm/sec. Rt. Vert. 38.6/13.3 cm/sec. Lt. Vert. 35.5/8 cm/sec. Right Extracranial There is heterogeneous, irregular atherosclerotic plaque noted in the right common carotid artery. There is heterogeneous, irregular atherosclerotic plaque noted in the right internal carotid artery. There is heterogeneous, irregular atherosclerotic plaque noted in the right external carotid artery. Antegrade flow is noted in the right vertebral artery. Left Extracranial There is heterogeneous, irregular atherosclerotic plaque noted in the left common carotid artery. There is heterogeneous, irregular atherosclerotic plaque noted in the left internal carotid artery. There is heterogeneous, irregular atherosclerotic plaque noted in the left external carotid artery. Antegrade flow is noted in the left vertebral artery. Procedure Carotid Duplex [id number]. This is a Carotid Duplex examination using B-mode, color flow and specral Doppler. Exam performed in department. VL/Carotid Duplex Ultrasound Interpretation Summary Regular calcific plaque with shadowing at the distal right common carotid and p roximal right internal carotid artery 50 to 69% stenosis right mid internal carotid artery Less than 50% stenosis right external carotid artery Irregular calcific plaque of the proximal left internal carotid artery with les s than 50% stenosis Less than 50% stenosis left external carotid artery Patent and antegrade vertebral arteries bilaterally No change from January 07, 2021 Ordering Physician: Rayna Joshi Referring Physician: Kenneth Noland Performed By: Blanca Cole RVT
== END | disposition home or self-care (01) ==
PROVIDERS: PCP Family Medicine; Referring Provider Nurse Practitioner Gerontology; Visit Provider Nurse Practitioner Gerontology
DX: I65.23 Occlusion and stenosis of bilateral carotid arteries (principal); R42 Dizziness and giddiness
CPT/HCPCS: 93880

== ENCOUNTER → 2022-09-20 | Outpatient (CLI) | payer MEDICARE, SELFPAY ==
--- NOTE | 2022-09-20 09:49 | STRESSREP ---
Stress Test Report Date: 09-20-2022 Procedure: Pharmacologic stress nuclear imaging study Indications: Chest pain; atrial fibrillation; status post EPS/RFA; CAD; hyperlipidemia; hypertension Consent: Per the patient Procedure: The patient underwent pharmacologic (Regadenoson 0.4mg ) evaluation with a peak heart rate of 92 beats per minute (65%predicted maximal heart rate) and a resting blood pressure of 132/88 mmHg and a peak blood pressure of 132/88 mmHg. The baseline ECG demonstrated sinus rhythm; right bundle branch block. The peak pharmacologic ECG demonstrated no obvious ECG changes. There were no cardiac dysrhythmias pretest, during pharmacologic infusion, or recovery. There was no complaint of chest discomfort during pharmacologic infusion or recovery. The examination was discontinued secondary to completion of protocol. Impression: 1. Pharmacologic (Regadenoson) evaluation 2. Peak pharmacologic ECG with continued right bundle branch block with no obvious ECG changes. 3. There were no cardiac dysrhythmias pretest, during pharmacologic infusion, or recovery. 4. Nuclear images pending Myocardial perfusion imaging study: Technique: The patient was injected with 14.4 millicuries of technetium 99m Cardiolite and subsequently rest SPECT Cardiolite nuclear imaging was obtained in the horizontal long, vertical long, and short axis views. The patient underwent pharmacologic (Regadenoson) evaluation with a peak heart rate of 92 beats per minute (65% percent predicted maximal heart rate) and a resting blood pressure of 132/88 mmHg and a peak blood pressure of 132/88 mmHg. The patient was injected with 44.9 millicuries of technetium 99m Cardiolite and subsequently stress SPECT Cardiolite nuclear imaging was obtained in the horizontal long, vertical long, and short axis views. A gated Cardiolite study at peak stress was obtained. Interpretation: Rest and stress SPECT Cardiolite nuclear imaging status post realignment, normalization, and attenuation correction demonstrate a small area of subtle diminished tracer uptake near the apical segments without significant change between rest and stress. There is end systolic thickening and brightening. The gated Cardiolite study demonstrates myocardial thickening and inward wall motion. The reported LVEF is 78%. Impression: 1. Rest and stress SPECT current nuclear imaging demonstrate myocardial perfusion changes appearing compatible with physiologic apical thinning with no myocardial perfusion changes considered diagnostic for associated stress-induced myocardial ischemia. 2. The gated Cardiolite study reports an LVEF of 78\%. This note was generated with Dragon dictation software. It may contain incorrect words, spelling, and punctuation that were not noted in checking the note before signing.
== END | disposition home or self-care (01) ==
PROVIDERS: PCP Family Medicine; Referring Provider Nurse Practitioner Gerontology; Visit Provider Nurse Practitioner Gerontology
DX: R07.9 Chest pain, unspecified (principal); I25.10 Atherosclerotic heart disease of native coronary artery without angina pectoris
CPT/HCPCS: 78452; 93017; A9500; A4216; J2785

== ENCOUNTER → 2022-09-22 | Outpatient (CLI) | payer MEDICARE, SELFPAY | END | disposition home or self-care (01) | LOC: PSN 13:52 | PROVIDERS: PCP Family Medicine; Visit Provider Nurse Practitioner Gerontology | DX: I48.19 Other persistent atrial fibrillation (principal) | CPT/HCPCS: 93225; 93226 ==

== ENCOUNTER → 2023-02-15 | Outpatient (CLI) | payer MEDICARE, SELFPAY ==
--- NOTE | 2023-02-15 10:10 | VDLE_ITS ---
Reason For Study: Left leg pain Procedure LEFT This is a venous duplex using B-mode, color CFV is compressible, spontaneous, phasic, flow and spectral Doppler. competent, and demonstrates normal Exam performed in department. augmentation. A preliminary report was called and/or faxed FV is compressible, spontaneous, phasic, to Dr. Andrews and Harry. competent and demonstrates normal augmentation. NUT ROASTER, 0.90 x 0.88 x 100.3 cm, 100.3 cm/sec. FA prox, 0.71 x 0.74 cm, 100.8 cm/sec. FA dist, 118.3 cm/sec. Pseudoaneurysm noted in the left groin that measures 2.77 x 3.60 x 3.95 cm. 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
== END | disposition home or self-care (01) ==
LOC: CVS 10:09
PROVIDERS: PCP Family Medicine; Referring Provider Physician Assistant Medical; Visit Provider Physician Assistant Medical
DX: S75.10 Unspecified injury of femoral vein at hip and thigh level (principal); M79.605 Pain in left leg; I97.638 Postprocedural hematoma of a circulatory system organ or structure following other circulatory system procedure
CPT/HCPCS: 93971

== ENCOUNTER → 2023-02-19 | Outpatient (CLI) | payer MEDICARE, SELFPAY ==
--- NOTE | 2023-02-19 08:13 | ADUL_ITS ---
Reason For Study: Left groin pseudoaneurysm,s/p thromin injection Left Velocities Pseudoaneurysm noted in the left groin, pre thrombin injection, measures 3.86 x 3.04 x 5.11 cm. HAND PROFILER, 107.6 cm/sec. S/P thrombin injection, pseudoaneurysm is occluded with no flow noted within the neck. Two hours post injection, pseudoaneurysm remains occluded. Procedure Exam performed in department. VL/US Art Duplex Unilat Lower Ext Interpretation Summary Left common femoral artery pseudoaneurysm with greatest dimension 5.11 cm with partial thrombosis but with majority active flow chamber. After confirmation of continued presence of flow chamber within the pseudoaneur ysm and verification of correct patient procedure site informed consent was obtained. Skin was prepp ed with chlorhexidine and the area draped in usual sterile fashion. Skin overlying the pseudoaneurysm was anesthetized with 1% lidocaine. Under ultrasound guidance a micropuncture needle was used to access the flow chamber and a total of 1.5 cc of thrombin was injected with continuous visualiz ation via color Doppler. There was successful thrombosis of the flow chamber and neck. Postinje ction imaging revealed patent common femoral artery with normal triphasic waveforms and veloc ities. After 2 hours of bedrest repeat imaging confirmed continued pseudoaneurysm thrombosis and con tinued common femoral artery patency. Ordering Physician: Natalie Rucker Referring Physician: Kenneth Noland Performed By: Blanca Cole RVT
== END | disposition home or self-care (01) ==
LOC: CVS 08:04
PROVIDERS: PCP Family Medicine; Referring Provider Physician Assistant; Visit Provider Physician Assistant
DX: I72.4 Aneurysm of artery of lower extremity (principal); T81.718A Complication of other artery following a procedure, not elsewhere classified, initial encounter
CPT/HCPCS: 93926

== ENCOUNTER → 2023-02-20 | Outpatient (CLI) | payer MEDICARE, SELFPAY ==
--- NOTE | 2023-02-20 11:03 | ADUL_ITS ---
Reason For Study: S/P left groin pseudoaneurysm thrombin injection Left Velocities Thrombosed pseudoaneurysm noted in the left groin that measures 3.67 x 3.54 x 4.52 cm. No flow identified within. 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 FA prox, 118.5 cm/sec. CFV is compressible with normal venous flow. Preliminary report given to Natalie WEBER. Procedure Exam performed in department. VL/US Art Duplex Unilat Lower Ext Interpretation Summary Left femoral pseudoaneurysm continues to demonstrate satisfactory thrombosis of flow chamber. Common femoral artery and common femoral vein patent with normal flow. Ordering Physician: Natalie Rucker Referring Physician: Kenneth Noland Performed By: Blanca Cole RVT
== END | disposition home or self-care (01) ==
PROVIDERS: PCP Family Medicine; Referring Provider Physician Assistant; Visit Provider Physician Assistant
DX: I72.4 Aneurysm of artery of lower extremity (principal)
CPT/HCPCS: 93926

== ENCOUNTER 2023-07-15 20:42 | Emergency (ER) | payer MEDICARE, SELFPAY ==
[2023-07-15 20:42] VITALS: BP 103/83; PULSE 141; RESP 18; TEMP 36.6; O2SAT 98; BMI 33.4
--- NOTE | 2023-07-15 20:45 | EKG12_ITS ---
Test Reason : PALPS Blood Pressure : / mmHG Vent. Rate : 105 BPM Atrial Rate : 000 BPM P-R Int : 000 ms QRS Dur : 128 ms QT Int : 360 ms P-R-T Axes : 000 -57 025 degrees QTc Int : 475 ms Atrial fibrillation with rapid ventricular response Right bundle branch block Left anterior fascicular block Bifascicular block Abnormal ECG Confirmed by TOPHER CLEMENTE, EDUARDO ([id number]), medical editor MEERA AWAD ([id number]) on 07/24/2023 2:14:47 PM Referred By: Confirmed By:EDUARDO OBANDO MD
[2023-07-15 21:05] LABS: Absolute Lymphocyte Count 1.97 X10^3/uL (0.83-4.51); Absolute Neutrophil Count 4.7 X10^3/uL (2.0-7.7); Basophil# 0.05 X10^3/uL; Basophil% 0.7 % (0-1); Eosinophils% 1.4 % (0-5); Hematocrit 41.2 % (40-54); Hemoglobin 13.3 g/dL (13.0-16.5); Lymphocyte # 1.97 X10^3/ul (0.83-4.51); Lymphocyte % 26.7 % (19-41); Mean Corp Hgb Conc 32.3 g/dL (32-36); Mean Corpuscular Hgb 29.2 pg (27.0-32.0); Mean Corpuscular Volume 90.4 fL (80-94); Mean Platelet Vol. 10.2 fl (6.2-12.0); Monocyte# 0.53 X10^3/uL; Monocyte% 7.2 % (0-10); NRBC Flagged by Analyzer 0 % (0-5); Neutrophil # 4.71 X10^3/uL (2.7-7.7); Neutrophil % 63.6 % (47-70); Platelet Count 174 K/mm3 (150-450); RBC Distribution Width CV 12.6 % (11.6-14.6); RBC Distribution Width SD 42.1 fl (35.1-43.9); Red Blood Count 4.56 M/mm3 (4.6-6.2); White Blood Count 7.4 K/mm3 (4.4-11.0)
--- NOTE | 2023-07-15 21:05 | RAD_ITS ---
INDICATION: chest pain EXAMINATION/TECHNIQUE: X-RAY - XR Chest 1 View COMPARISON: FINDINGS: LINES/DEVICES: None. LUNGS: No consolidation, edema or effusion. No pneumothorax. MEDIASTINUM AND CARDIOVASCULAR STRUCTURES: Cardiac silhouette not enlarged. Central airways and mediastinal contour are unremarkable. BONES AND SOFT TISSUES: Unremarkable. RAD/Chest 1 View (Portable) IMPRESSION: No radiographic evidence of acute cardiopulmonary disease. Electronically Signed: Niko Cortez DO at 21:22 EST ,
[2023-07-15 21:22] LABS: Anion Gap 1 (5-15); BUN 20 mg/dL (7-18); Calcium,Total 9.5 mg/dL (8.5-10.1); Chloride 104 mmol/L (98-107); Creatinine, Serum 1.11 mg/dL (0.70-1.30); EST Glomerular Filtration Rate 68 mL/min (>60); Est Glom Filt Rate - Afr Amer 82 mL/min (>60); Estimated Creatinine Clearance 53.89 ml/min; Glucose 136 mg/dL (74-106); Potassium 3.6 mmol/L (3.5-5.1); Sodium Level 137 mmol/L (136-145); Troponin-I HS (w/2H Reflex) 21 pg/mL (3.0-78.0)
[2023-07-15 21:25] VITALS: BP 128/74; PULSE 103; RESP 14; O2SAT 95
[2023-07-15 22:00] VITALS: BP 102/73; PULSE 79; RESP 14; O2SAT 94
[2023-07-15 23:00] VITALS: BP 120/65; PULSE 76; RESP 12; O2SAT 97
[2023-07-15 23:03] LABS: Reflex Troponin-HS? (from REC) Y
[2023-07-15 23:24] VITALS: BP 90/72; PULSE 101; RESP 17; O2SAT 96
[2023-07-15 23:31] LABS: Troponin-I HS 26 pg/mL (3.0-78.0)
--- NOTE | 2023-07-15 23:45 | EX.ED.DYSGE1 ---
HPI History of Present Illness Chief Complaint: Palpitations Informant: patient Narrative Narrative: Patient presents with atrial fibrillation and some chest tightness. This patient has a long history of atrial fibrillation. He has had 3 ablations and only 7 cardioversions. He was told there may be limits to this working anymore. His last ablation was 6 months ago. He has been doing well. But today noticed his heart rate was up. He has equipment at home he can use to monitor this. It was running 130s and then even higher. He did have some chest tightness with it. But he does feel better now. He is on 180 of diltiazem extended release a day. He is on 50 twice daily of metoprolol. He did take those. He then took another dose of metoprolol tonight. He contacted cardiology and was referred in. Patient came in because his heart rate was going up again. He cannot think of any changes that would have produced this. He is pretty sure he has not been in atrial fibrillation recently. He is on Xarelto. He was told that if this occurs again he may need to be brought in the hospital and brought started on Tikosyn. [facility] Medical History Arthritis Atherosclerosis of [place] coronary artery of [place] heart without angina pectoris Atrial flutter Contusion of other part of head, sequela DDD (degenerative disc disease), cervical HLD (hyperlipidemia) HTN (hypertension) half-way (current) use of anticoagulants ADAMA (obstructive sleep apnea) Paroxysmal atrial fibrillation Paroxysmal atrial tachycardia Persistent atrial fibrillation Premature atrial contractions Premature ventricular contraction Skin cancer Skin ulcer of forehead with fat layer exposed Ventricular ectopy Home Medications aspirin 81 mg chewable tablet 81 mg PO DAILY@0800 03/19/17 [History Last Taken 04/04/22] losartan 100 mg tablet 100 mg PO DAILY 07/10/18 [History Last Taken 04/04/22] tadalafil 5 mg tablet (Cialis) 5 mg PO DAILY PRN ed 06/10/20 [History Last Taken Unknown] acetaminophen 325 mg tablet 650 mg PO ONCE PRN Pain 05/19/21 [History Last Taken Unknown] nitroglycerin 0.4 mg sublingual tablet 0.4 mg sublingual Q5M PRN Chest Pain #25 tabs 11/17/21 [Rx Last Taken Unknown] latanoprost 0.005 % eye drops (Xalatan) 1 drp EACH EYE QHS 03/13/22 [History Last Taken 04/04/22] cyclobenzaprine 5 mg tablet 5 mg PO TID PRN muscle spasm 05/24/22 [History Last Taken Unknown] hydrochlorothiazide 25 mg tablet 25 mg PO DAILY 05/24/22 [History Last Taken Unknown] levothyroxine 50 mcg tablet 50 mcg PO DAILY 05/24/22 [History Last Taken Unknown] montelukast 10 mg tablet 10 mg PO QHS 05/24/22 [History Last Taken Unknown] rosuvastatin 5 mg tablet 5 mg PO DAILY 05/24/22 [History Last Taken Unknown] tamsulosin 0.4 mg capsule 0.4 mg PO DAILY 05/24/22 [History Last Taken Unknown] rivaroxaban 20 mg tablet (Xarelto) 20 mg PO DAILY #90 tabs 06/19/22 [Rx Last Taken Unknown] metoprolol tartrate 50 mg tablet 50 mg PO BID #180 tabs 02/15/23 [Rx Last Taken Unknown] diltiazem HCl 180 mg capsule,extended release 24 hr 180 mg PO DAILY #90 caps 06/12/23 [Rx Last Taken Unknown] sildenafil 100 mg tablet (Viagra) 100 mg PO DAILY PRN sexual activity #10 tabs 06/26/23 [Rx Last Taken Unknown] vitamins A,C,M-hqio-ygslpu 4,296 mcg-226 mg-90 mg capsule (PreserVision AREDS) 1 cap PO QAM AND QPM 06/26/23 [History Last Taken Unknown] Allergy/AdvReac Type Severity Reaction Status Date / Time No Known Allergies Allergy Verified 07/15/23 20:45 Family History Father Lung cancer Surgical History History of left heart catheterization History of radiofrequency ablation procedure for cardiac arrhythmia (~05/23/22) Social History Smoking Status: Former smoker alcohol intake: former substance use type: does not use caffeine: Yes Type: coffee what type of physical activity do you participate in: none seatbelt use: sometimes do you feel safe at home: Yes additional social history: Does take Aspirin daily Does not take Ibuprofen ROS ROS ED Constitutional Constitutional ED: Denies chills or fever(s) Eyes Eyes: Denies change in vision ENT ENT ED: Denies rhinorrhea Cardiovascular Cardiovascular: Reports chest pain, palpitations and racing heartbeat Respiratory/Chest Respiratory/Chest: Denies cough or dyspnea Gastrointestinal Gastrointestinal: Denies nausea or vomiting Musculoskeletal Musculoskeletal: Denies back pain, myalgias or neck pain Integumentary Denies rash Neurologic Neurologic: Denies headache(s), paresthesias or weakness Hematologic/Lymphatic Hematologic/Lymphatic: Reports easy bleeding and easy bruising Allergic/Immunologic Allergic/Immunologic ED: Denies urticaria EXAM Physical Exam Narrative Exam Narrative: CONSTITUTIONAL: Patient is nontoxic in appearance. The patient looks comfortable. Work of breathing looks normal. HEENT: No notable trauma. No pallor. EYES: No conjunctival injection. No pallor. NECK:No JVD. No stridor. CARDIOVASCULAR: Tachycardic rate. Irregular rhythm. No notable murmur. No JVD. RESPIRATORY: No respiratory distress. Breathing is unlabored. No rales. GASTROINTESTINAL: Not distended. Bowel sounds are normal. No tenderness. GENITOURINARY:No CVA tenderness. MUSCULOSKELETAL: Atraumatic. No significant peripheral edema. No pallor or mottling NEUROLOGICAL: Patient is alert and appropriate. No focal deficit noted. SKIN: No noted rashes. No diaphoresis. PSYCHIATRIC: Patient is calm. Mood is appropriate. Const Vital Signs: 07/15/23 20:42 07/15/23 21:25 07/15/23 21:25 Temperature 97.9 F Temperature Source Temporal Pulse Rate 141 H 103 H Respiratory Rate 18 14 Respiratory Effort Blood Pressure 103/83 H 128/74 H Blood Pressure Mean 89 92 Pulse Ox 98 95 95 Oxygen Delivery Method Room Air Room Air Room Air 07/15/23 21:30 07/15/23 22:00 07/15/23 23:00 Temperature Temperature Source Pulse Rate 79 76 Respiratory Rate 14 12 Respiratory Effort Normal Non-Labored Blood Pressure 102/73 120/65 Blood Pressure Mean 82 83 Pulse Ox 94 97 Oxygen Delivery Method Room Air Room Air 07/15/23 23:24 07/16/23 00:19 07/16/23 00:27 Temperature Temperature Source Pulse Rate 101 H 120 H 88 Respiratory Rate 17 16 17 Respiratory Effort Blood Pressure 90/72 109/62 112/68 Blood Pressure Mean 78 77 82 Pulse Ox 96 100 99 Oxygen Delivery Method Room Air Room Air Room Air 07/16/23 00:53 Temperature Temperature Source Pulse Rate 86 Respiratory Rate 95 H Respiratory Effort Blood Pressure 106/71 Blood Pressure Mean 82 Pulse Ox 11 Oxygen Delivery Method Room Air MDM MDM MDM Narrative Medical decision making narrative: My independent interpretation of the patient's single view chest x-ray shows no acute process. Final reading is similar Patient's CBC is overall normal. Patient's electrolytes are overall normal. Patient's first troponin is negative at 21. Patient's second troponin is 26. This is only a 5 rise from the first. We did discuss the case with Dr. Landa. We discussed his presentation, history, cardioversions, ablations blood work G and symptoms. We discussed that this patient's heart rate will sometimes go down to 70s and then sometimes go back up to 130s. He states that we can try some more metoprolol. Patient can increase his metoprolol from 50 twice daily up to 100 twice daily if needed. He recommend close follow-up with underwriting sales representative and/or his drilling manager. We did give him a 5 mg dose of metoprolol. His heart rate has come down to the mid 80s. His blood pressure actually improved. He feels good. Plan will be to follow-up. He will call his local underwriting sales representative office. He will also because his drilling manager up in [facility]. We discussed reasons to return that would be lower blood pressure, lightheadedness, tachycardia, bradycardia or any other concern. Lab Data Attestation: I reviewed the patient's lab results. Labs: Laboratory Results - last 24 hr 07/15/23 07/15/23 20:50 23:08 WBC 7.4 RBC 4.56 L Hgb 13.3 Hct 41.2 MCV 90.4 MCH 29.2 MCHC 32.3 RDW Std Deviation 42.1 RDW Coeff of Lisa 12.6 Plt Count 174 MPV 10.2 Immature Gran % (Auto) 0.400 Neut % (Auto) 63.6 Lymph % (Auto) 26.7 Caroline % (Auto) 7.2 Eos % (Auto) 1.4 Baso % (Auto) 0.7 Absolute Neuts (auto) 4.7 Absolute Lymphs (auto) 1.97 Nucleated RBC % 0 Sodium 137 Potassium 3.6 Chloride 104 Carbon Dioxide 32.0 Anion Gap 1 L BUN 20 H Creatinine 1.11 Estim Creat Clear Calc 53.89 Est GFR (MDRD) Af Amer 82 Est GFR (MDRD) Non-Af 68 BUN/Creatinine Ratio 18.0 Glucose 136 H Calcium 9.5 Troponin I High Sens 21 26 Radiography Diagnostic Testing: Clinical Impression(s) from Imaging Studies Chest X-Ray 07/15/23 21:05 IMPRESSION: No radiographic evidence of acute cardiopulmonary disease. Electronically Signed: Niko Cortez DO at 21:22 EST Reading Location ID and State: [facility] / [place] Tel [phone], Service support , Management Discussion w/another healthcare provider: Molecular Pathologist Discharge Plan Triage Chief Complaint: Palpitations ED Provider: Ever Mitchell Dx/Rx/DC Orders Clinical Impression: Atrial fibrillation, History of prior ablation treatment Instructions: ED AFIB Prescriptions: No Action losartan 100 mg tablet 100 mg PO DAILY acetaminophen 325 mg tablet 650 mg PO ONCE PRN (Reason: Pain) nitroglycerin 0.4 mg tablet, sublingual 0.4 mg SUBLINGUAL Q5M PRN (Reason: Chest Pain) Qty: 25 1RF Patient Comments: chest pain metoprolol tartrate 50 mg tablet 50 mg PO BID Qty: 180 3RF PreserVision AREDS 4,296 mcg-226 mg-90 mg capsule 1 cap PO QAM AND QPM sildenafil [Viagra] 100 mg tablet 100 mg PO DAILY PRN (Reason: sexual activity) Qty: 10 0RF Rx Instructions: 1/2 to 1 pill as needed administer 30 minutes to 4 hours before activity aspirin 81 MG tablet,chewable 81 mg PO DAILY@0800 Patient Comments: stopped 03/19 for colonoscopy latanoprost [Xalatan] 0.005 % drops 1 drp EACH EYE QHS Patient Comments: 1 drop in both eyes nightly tadalafil [Cialis] 5 mg tablet 5 mg PO DAILY PRN (Reason: ed) cyclobenzaprine 5 mg tablet 5 mg PO TID PRN (Reason: muscle spasm) rosuvastatin 5 mg tablet 5 mg PO DAILY hydrochlorothiazide 25 mg tablet 25 mg PO DAILY tamsulosin 0.4 mg capsule 0.4 mg PO DAILY levothyroxine 50 mcg tablet 50 mcg PO DAILY montelukast 10 mg tablet 10 mg PO QHS Xarelto 20 mg tablet 20 mg PO DAILY Qty: 90 4RF diltiazem HCl 180 mg capsule,extended release 24hr 180 mg PO DAILY Qty: 90 3RF Primary Care Provider: Kenneth Noland Referrals: Ki Andrews MD [Med Staff - Active Staff] - As soon as possible (Call in the morning for an appointment) Kenneth Noland DO [Primary Care Provider] - Activity Restrictions/Additional Instructions: You may increase your metoprolol up to 3 times a day. If needed you can take a total of 4 tablets a day which would be 100 mg twice a day. Hold if your blood pressure is dropping below 100 or heart rate is going lower than 70. Disposition Disposition: Home, Self Care
[2023-07-16 00:19] VITALS: BP 109/62; PULSE 120; RESP 16; O2SAT 100
[2023-07-16] MEDS: Metoprolol Tartrate 5 MG/5 ML Vial IV (00:20)
[2023-07-16] MEDS: 0.9% Normal Saline (500mL Bag) 500 ML 999 ML IV (00:24)
[2023-07-16 00:27] VITALS: BP 112/68; PULSE 88; RESP 17; O2SAT 99
[2023-07-16 00:53] VITALS: BP 106/71; PULSE 86; RESP 95; O2SAT 11
[2023-07-16 01:00] VITALS: BP 112/60; PULSE 86; RESP 16; O2SAT 99
== END 2023-07-16 01:15 | disposition home or self-care (01) ==
PROVIDERS: Emergency Provider Emergency Medicine; PCP Family Medicine; Visit Provider Emergency Medicine
DX: I48.0 Paroxysmal atrial fibrillation (principal); E78.5 Hyperlipidemia, unspecified; I10 Essential (primary) hypertension; I25.10 Atherosclerotic heart disease of native coronary artery without angina pectoris; G47.33 Obstructive sleep apnea (adult) (pediatric); Z79.82 Long term (current) use of aspirin; Z79.899 Other long term (current) drug therapy; Z79.01 Long term (current) use of anticoagulants; Z87.891 Personal history of nicotine dependence
CPT/HCPCS: 71045; 80048; 84484; 85025; 93005; 96374; 99284; J7030; A4216

== ENCOUNTER 2023-09-07 10:26 | Day surgery (SDC) | payer MEDICARE, SELFPAY ==
[2023-08-22 07:10] LABS: Hematocrit 42.2 % (40-54); Hemoglobin 13.4 g/dL (13.0-16.5)
[2023-08-22 07:18] LABS: Anion Gap 4 (5-15); BUN 24 mg/dL (7-18); Calcium,Total 9.7 mg/dL (8.5-10.1); Chloride 104 mmol/L (98-107); Creatinine, Serum 1.09 mg/dL (0.70-1.30); EST Glomerular Filtration Rate 69 mL/min (>60); Est Glom Filt Rate - Afr Amer 84 mL/min (>60); Glucose 124 mg/dL (74-106); Potassium 3.9 mmol/L (3.5-5.1); Sodium Level 139 mmol/L (136-145)
[2023-09-06 08:16] VITALS: BMI 34.7
--- OUTSIDE RECORDS SUMMARY | 2023-09-07 11:35 | XMS RPT_ITS | CCD ---
Author Name Unknown Address [address] [place] [address] Organization [facility] Care Team Providers Care Celebrity Manager Name Role Phone GWEN PIKE DPM Unavailable Unavailable GWEN PIKE DPM Unavailable Unavailable GWEN PIKE DPM Unavailable Unavailable PROVIDER, UNKNOWN Attending Unavailable PROVIDER, UNKNOWN Admitting Unavailable Mainor Amaro Unavailable Deloris Alexander MD Unavailable Ludin Scott DO, Dennis Primary Care Provider Mainor Amaro Unavailable Deloris Alexander MD Unavailable Ludin Scott DO, Dennis Primary Care Provider Mainor Amaro Unavailable Ludin Scott DO, Dennis Primary Care Provider Mainor Amaro Unavailable Deloris Alexander MD Unavailable Ludin Scott DO, Dennis Primary Care Provider Jo Mcdonald) Unavailable Deloris Alexander MD Unavailable Mainor Amaro Unavailable Jo Dillon Unavailable Andrea Mosley MD Unavailable KENNETH NOLAND V Primary Care Unavailable KENNETH NOLAND V Primary Care Unavailable DELORIS ALEXANDER Attending Unavailable KENNETH NOLAND V Primary Care Unavailable DELORIS ALEXANDER Admitting Unavailable LUDIN, KENNETH V Primary Care Unavailable SCHWEIABDIT, DELORIS Adams Referring Unavailable LUDIN, KENNETH V Primary Care Unavailable SCHWEIABDIT, DELORIS Adams Referring Unavailable LUDIN, KENNETH V Referring Unavailable LUDIN, KENNETH V Primary Care Unavailable SCHWEIABDIT, DELORIS Adams Attending Unavailable DINORAH, EVARISTO Attending Unavailable LUDIN, KENNETH V Primary Care Unavailable DINORAH, EVARISTO Attending Unavailable LUDIN, KENNETH V Primary Care Unavailable LUDIN, KENNETH V Primary Care Unavailable SCHWEIABDIT, DELORIS Adams Referring Unavailable DINORAH, EVARISTO Attending Unavailable LUDIN, KENNETH V Primary Care Unavailable LUDIN, KENNETH V Primary Care Unavailable LUDIN, KENNETH V Primary Care Unavailable SCHWEIKERT, DELORIS Adams Referring Unavailable LUDIN, KENNETH V Primary Care Unavailable SCHWEIJAVIER, DELORIS Adams Referring Unavailable LUDIN, KENNETH V Primary Care Unavailable SCHWEIKERT, DELORIS Adams Referring Unavailable KIMBERLY PRADO Attending Unavailable LUDIN, KENNETH V Primary Care Unavailable LUDIN, KENNETH Referring Unavailable LUDIN, KENNETH Primary Care Unavailable LUDIN, KENNETH Attending Unavailable LUDIN, KENNETH Primary Care Unavailable LUDIN, KENNETH Referring Unavailable LUDIN, KENNETH Primary Care Unavailable LUDIN, KENNETH Attending Unavailable LUDIN, KENNETH Primary Care Unavailable LUDIN, KENNETH Attending Unavailable LUDIN, KENNETH Primary Care Unavailable LUDIN, KENNETH Attending Unavailable LUDIN, KENNETH Primary Care Unavailable Medications Current Medications Medication Drug Class(es) Dates Sig (Normalized) Sig (Original) amoxicillin 875 mg / clavulanate 125 mg oral tablet (20 sources) Penicillin-class Antibacterial Start: 02-12-2023 End: 02-22-2023 take 1 tablet by mouth twice daily amoxicillin-clav ulanic acid (AUGMENTIN) 875-125 mg per tablet Take 1 tablet by mouth twice daily for 10 days. 20 tablet 0 02/12/2023 02/22/2023 Active Completed/Discontinued Medications Medication Drug Class(es) Dates Sig (Normalized) Sig (Original) [id number] 200 actuat albuterol 0.09 mg/actuat metered dose inhaler (20 sources) beta2-Adrenergic Agonist Start: 03-26-2020 End: 01-18-2023 take 1 puff(s) by mouth every four hours as needed for cough albuterol HFA (PROVENTIL HFA, VENTOLIN HFA) 90 mcg/actuation inhaler INHALE 1 PUFF BY MOUTH EVERY 4 HOURS NEEDED FOR COUGH 3 Each 3 08/09/2022 01/18/2023 Discontinued (Discontinued by Patient) Problems Active Problems Problem Classification Problem Date Documented Da te Episodic/Chronic Cardiac dysrhythmias (20 sources) Premature atrial contraction; Translations: [Atrial premature depolarization] Onset: 03-04-2020 03-04-2020 Chronic Conduction disorders (20 sources) Right bundle branch block; Translations: [Unspecified right bundle-branch block] Onset: 08-10-2020 08-09-2020 Chronic Coronary atherosclerosis and other heart disease (20 sources) Coronary atherosclerosis; Translations: [Atherosclerotic heart disease of [place] coronary artery without angina pectoris] Onset: 05-03-2022 05-03-2022 Chronic Disorders of lipid metabolism (20 sources) Mixed hyperlipidemia; Translations: [Mixed hyperlipidemia] Onset: 03-04-2020 03-04-2020 Chronic Essential hypertension (20 sources) Essential hypertension; Translations: [Essential (primary) hypertension] Onset: 03-04-2020 03-04-2020 Chronic Other aftercare (20 sources) Long-term current use of anticoagulant; Translations: [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 (current) use of anticoagulants] 06-18-2021 Episodic Other aftercare (1 source) Wound finding; Translations: [Encounter for other specified aftercare] Episodic Other bone disease and musculoskeletal deformities (2 sources) Somatic dysfunction of thoracic region; Translations: [Segmental and somatic dysfunction of thoracic region] Episodic Other connective tissue disease (1 source) Synovial cyst of right popliteal space; Translations: [Synovial cyst of popliteal space [Camara], right knee] Episodic Other connective tissue disease (1 source) Disorder of rotator cuff; Translations: [Unspecified disorder of synovium and tendon, right shoulder] 05-25-2023 Episodic Other injuries and conditions due to external causes (1 source) Injury of knee; Translations: [Unspecified injury of unspecified lower leg, initial encounter] 04-25-2023 Episodic Other liver diseases (1 source) Lesion of liver; Translations: [Liver disease, unspecified] Chronic Other lower respiratory disease (1 source) Cough; Translations: [Subacute cough] Episodic Other non-traumatic joint disorders (1 source) Effusion of right knee joint; Translations: [Effusion, right knee] Episodic Other nutritional; endocrine; and metabolic disorders (20 sources) Obese class I; Translations: [Obesity, unspecified] Onset: 03-08-2020 03-08-2020 Chronic Other nutritional; endocrine; and metabolic disorders (20 sources) Obese class II; Translations: [Obesity, unspecified] Onset: 07-01-2021 07-01-2021 Chronic Other nutritional; endocrine; and metabolic disorders (2 sources) Obesity, unspecified; Translations: [Obesity, Class I, BMI 30-34.9] Onset: 03-08-2020 Chronic Other screening for suspected conditions (not mental disorders or infectious disease) (3 sources) Computed tomography result abnormal; Translations: [Abnormal findings on diagnostic imaging of other specified body structures] Onset: 09-11-2022 Chronic Residual codes; unclassified (20 sources) H/O cardiac surgery; Translations: [Other specified postprocedural states] 06-18-2021 Episodic Skin and subcutaneous tissue infections (2 sources) Infection of skin; Translations: [Local infection of the skin and subcutaneous tissue, unspecified] 04-23-2023 Episodic Spondylosis; intervertebral disc disorders; other back problems (2 sources) Chronic thoracic back pain; Translations: [Pain in thoracic spine] Episodic Sprains and strains (1 source) Sprain of left shoulder; Translations: [Unspecified sprain of left shoulder joint, subsequent encounter] 05-11-2023 Episodic Superficial injury; contusion (1 source) Contusion, knee and lower leg; Translations: [Contusion of right knee, subsequent encounter] 05-11-2023 Episodic Unclassified (1 source) Other persistent atrial fibrillation; Translations: [Persistent atrial fibrillation (HCC)] Onset: 02-08-2023 Unclassified (1 source) EKG Onset: 03-20-2023 Unclassified (1 source) 2 week 2 days post visit right knee injury Onset: 05-11-2023 Past or Other Problems Problem Classification Problem Date Documented Da te Episodic/Chronic Cardiac dysrhythmias (20 sources) Palpitations; Translations: [Palpitations] Onset: 04-29-2020 04-29-2020 Episodic Malaise and fatigue (1 source) Other fatigue; Translations: [Fatigue, unspecified type] Onset: 01-30-2023 Episodic Other aftercare (2 sources) 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 (current) use of anticoagulants; Translations: [Current use of vermin exterminator anticoagulation] Onset: 05-24-2022 Episodic Other diseases of veins and lymphatics (20 sources) Venous insufficiency of leg; Translations: [Venous insufficiency (chronic) (peripheral)] Onset: 05-11-2010 05-11-2010 Episodic Other gastrointestinal disorders (20 sources) Other specified symptoms and signs involving the digestive system and abdomen; Translations: [Other symptoms involving digestive system] Onset: 03-13-2011 03-13-2011 Episodic Other lower respiratory disease (17 sources) Dyspnea; Translations: [Dyspnea, unspecified] Onset: 05-17-2023 Episodic Other lower respiratory disease (1 source) Dyspnea, unspecified; Translations: [Dyspnea, unspecified type] Onset: 05-17-2023 Episodic Residual codes; unclassified (20 sources) Other specified personal risk factors, not elsewhere classified; Translations: [Other specified personal history presenting hazards to health] Onset: 05-24-2022 03-04-2020 Episodic Residual codes; unclassified (1 source) Other specified postprocedural states; Translations: [Status post catheter ablation of atrial fibrillation] Onset: 02-08-2023 Episodic Syncope (20 sources) Near syncope; Translations: [Syncope and collapse] Onset: 03-04-2020 03-04-2020 Episodic Results Test Name Value Interpretation Reference Range Facil ity Vital Signs Date Time Vital Sign Value Performing Clinician Nieves simmons 05-17-2023 13:40-0400 Diastolic blood pressure 79 mm[Hg] Kimberly Prado APRN.CNP Work Phone: [facility] 05-17-2023 13:40-0400 Systolic blood pressure 147 mm[Hg] Kimberly Prado APRN.CNP Work Phone: [facility] 05-17-2023 13:35-0400 Body height 177.8 cm Kimberly Prado APRN.CNP Work Phone: [facility] 05-17-2023 13:35-0400 Body weight 106.59 kg Kimberly Prado APRN.CNP Work Phone: [facility] 05-17-2023 13:35-0400 Heart rate 72 /min Kimberly Prado APRN.CNP Work Phone: [facility] 05-17-2023 13:35-0400 SaO2% (BldA) [Mass fraction] 97 % Kimberly Prado APRN.CNP Work Phone: [facility] 03-20-2023 13:06-0400 Body weight 108.86 kg Nurse Pob Work Phone: [facility] 03-20-2023 13:06-0400 Diastolic blood pressure 72 mm[Hg] Nurse Pob Work Phone: [facility] 03-20-2023 13:06-0400 Heart rate 70 /min Nurse Pob Work Phone: [facility] 03-20-2023 13:06-0400 SaO2% (BldA) [Mass fraction] 97 % Nurse Pob Work Phone: [facility] 03-20-2023 13:06-0400 Systolic blood pressure 122 mm[Hg] Nurse Pob Work Phone: [facility] 09-27-2022 12:57-0500 Body height 177.8 cm Evaristo Linardi DIETITIAN CONSULTANT.TIGHT COOPER Work Phone: [facility] 09-27-2022 12:57-0500 Body weight 111.58 kg Eavristo Linardi DIETITIAN CONSULTANT.TIGHT COOPER Work Phone: [facility] 09-27-2022 12:57-0500 Diastolic blood pressure 74 mm[Hg] Evaristo Linardi DIETITIAN CONSULTANT.TIGHT COOPER Work Phone: [facility] 09-27-2022 12:57-0500 Heart rate 91 /min Evaristo Linardi DIETITIAN CONSULTANT.TIGHT COOPER Work Phone: [facility] 09-27-2022 12:57-0500 SaO2% (BldA) [Mass fraction] 99 % Evaristo Linardi DIETITIAN CONSULTANT.TIGHT COOPER Work Phone: [facility] 09-27-2022 12:57-0500 Systolic blood pressure 117 mm[Hg] Evaristo Linardi DIETITIAN CONSULTANT.TIGHT COOPER Work Phone: [facility] 09-01-2022 16:09-0500 Body weight 110.68 kg Deloris Alexander MD Work Phone: [facility] 09-01-2022 16:09-0500 Diastolic blood pressure 73 mm[Hg] Deloris Alexander MD Work Phone: [facility] 09-01-2022 16:09-0500 Heart rate 63 /min Deloris Alexander MD Work Phone: [facility] 09-01-2022 16:09-0500 SaO2% (BldA) [Mass fraction] 95 % Deloris Alexander MD Work Phone: [facility] 09-01-2022 16:09-0500 Systolic blood pressure 121 mm[Hg] Deloris Alexander MD Work Phone: [facility] 08-11-2022 14:40-0500 Diastolic blood pressure 57 mm[Hg] Kenneth Noland V, DO Work Phone: [facility] 08-11-2022 14:40-0500 Heart rate 56 /min Kenneth Noland V, DO Work Phone: [facility] 08-11-2022 14:40-0500 Systolic blood pressure 128 mm[Hg] Kenneth Noland V, DO Work Phone: [facility] 06-05-2022 13:14-0400 Body temperature 98.49 [degF] Nurse Pob Work Phone: [facility] 05-05-2022 10:31-0400 Body weight 108.41 kg Kenneth Noland V, DO Work Phone: [facility] 05-05-2022 10:31-0400 Diastolic blood pressure 56 mm[Hg] Kenneth Noland V, DO Work Phone: [facility] 05-05-2022 10:31-0400 Heart rate 49 /min Kenneth Noland V, DO Work Phone: [facility] 05-05-2022 10:31-0400 Systolic blood pressure 129 mm[Hg] Kenneth Noland V, DO Work Phone: [facility] 02-22-2022 12:51-0400 Body height 177.8 cm Kimberly Prado APRN.CNP Work Phone: [facility] 02-22-2022 12:51-0400 Body weight 109.32 kg Kimberly Prado APRN.TIGHT COOPER Work Phone: [facility] 02-22-2022 12:51-0400 Diastolic blood pressure 70 mm[Hg] Kimberly Prado APRN.TIGHT COOPER Work Phone: [facility] 02-22-2022 12:51-0400 Heart rate 52 /min Kimberly Prado DIETITIAN CONSULTANT.TIGHT COOPER Work Phone: [facility] 02-22-2022 12:51-0400 SaO2% (BldA) [Mass fraction] 96 % Kimberly Prado DIETITIAN CONSULTANT.TIGHT COOPER Work Phone: [facility] 02-22-2022 12:51-0400 Systolic blood pressure 134 mm[Hg] Kimberly Prado DIETITIAN CONSULTANT.TIGHT COOPER Work Phone: [facility] Encounters Encounter Date Encounter Type Care Provider Facility Start: 08-17-2023 Telephone encounter Deloris varner MD Work Phone: [facility] Procedures Date Procedure Procedure Detail Performing Clinician Start: 05-25-2023 Arthrocentesis aspir &/inj major jt/bursa w/o us Kenneth Noland DO Work Phone: Start: 05-17-2023 Ecg routine ecg w/le ast 12 lds w/i&r Kimberly Prado APRN.TIGHT COOPER Work Phone: Start: 05-17-2023 Echo tthrc r-t 2d w/wom-mode compl spec&colr d Deloris Alexander MD Work Phone: Start: 05-17-2023 Creatinine blood [facility] Start: 03-20-2023 Ecg routine ecg w/le ast 12 lds w/i&r Deloris Alexander MD Work Phone: Start: 02-07-2023 Antibody screen KENNETH NOLAND Plan of Treatment Date Care Activity Detail Author Start: 09-20-2030 Urine microalbumin profile [facility] Start: 02-08-2026 DIABETES SCREEN DIABETES SCREEN [facility] Start: 02-08-2026 Diabetes Screening Diabetes Screening [facility] Start: 02-07-2026 DIABETES SCREEN DIABETES SCREEN [facility] Start: 01-30-2026 DIABETES SCREEN DIABETES SCREEN [facility] Start: 05-24-2025 DIABETES SCREEN DIABETES SCREEN [facility] Start: 10-18-2024 DIABETES SCREEN DIABETES SCREEN [facility] Start: 03-20-2024 BP CONTROLLED (<130/80) BP CONTROLLED (<130/80) [facility] Start: 01-27-2024 BP CONTROLLED (<130/80) BP CONTROLLED (<130/80) [facility] Start: 09-27-2023 BP CONTROLLED (<130/80) BP CONTROLLED (<130/80) [facility] Start: 09-01-2023 BP CONTROLLED (<130/80) BP CONTROLLED (<130/80) [facility] Start: 08-17-2023 End: 11-16-2023 CBC W Auto Differential panel - Blood CBC + DIFF Lab Routine Atrial fibrillation, unspecified type (HCC) Expected: 08/17/2023, Expires: 11/16/2023 [facility] Work Phone: Immunizations Immunization Date Immunization Notes Care Provider Mary Kate bustillo 06-16-2022 influenza, high-dose , quadrivalent vaccine (FLUZONE HIGH DOSE QUADRIVALENT) Ttm Check [facility] Work Phone: 06-16-2022 influenza virus vacc ine, unspecified formulation Evaristo George APRN.TIGHT COOPER Work Phone: [facility] 08-25-2021 zoster vaccine recombinant Kenneth Noland V, DO Work Phone: [facility] Work Phone: 06-15-2021 influenza, high-dose , quadrivalent vaccine (FLUZONE HIGH DOSE QUADRIVALENT) Kenneth Noland V, DO Work Phone: [facility] Work Phone: 04-27-2021 zoster vaccine recombinant Kenneth Noland V, DO Work Phone: [facility] Work Phone: 10-28-2020 COVID-19 vaccine, fu ll dose (MODERNA) Kenneth Noland V, DO Work Phone: [facility] Work Phone: 09-30-2020 COVID-19 vaccine, fu ll dose (MODERNA) Kenneth Noland V, DO Work Phone: [facility] Work Phone: 09-20-2020 tetanus toxoid, redu bandar diphtheria toxoid, and acellular pertussis vaccine, adsorbed Kenneth Noland V, DO Work Phone: [facility] Work Phone: 07-17-2019 pneumococcal polysaccharide vaccine, 23 valent Kenneth Noland V, DO Work Phone: [facility] Work Phone: 06-26-2019 influenza, injectabl e, quadrivalent, contains preservative Kenneth Noland V, DO Work Phone: [facility] Work Phone: 06-24-2019 influenza, injectabl e, quadrivalent, preservative free Andrea Mosley MD Work Phone: [facility] Work Phone: 06-24-2019 influenza, seasonal, injectable Kenneth Ludin V, DO Work Phone: [facility] Work Phone: 06-24-2019 influenza, seasonal, injectable, preservative free Kenneth Ludin V, DO Work Phone: [facility] Work Phone: 2018 influenza, injectabl e, quadrivalent, preservative free Andrea Mosley MD Work Phone: [facility] Work Phone: 2018 influenza, seasonal, injectable Kenneth Ludin V, DO Work Phone: [facility] Work Phone: 2018 influenza, seasonal, injectable, preservative free Kenneth Ludin V, DO Work Phone: [facility] Work Phone: 05-14-2017 influenza, high dose seasonal, preservative-free Kenneth Ludin V, DO Work Phone: [facility] Work Phone: 01-08-2017 tetanus toxoid, redu bandar diphtheria toxoid, and acellular pertussis vaccine, adsorbed Kenneth Ludin V, DO Work Phone: [facility] Work Phone: 06-01-2016 influenza, injectabl e, quadrivalent, preservative free Andrea Mosley MD Work Phone: [facility] Work Phone: 06-01-2016 influenza, seasonal, injectable Kenneth Ludin V, DO Work Phone: [facility] Work Phone: 06-01-2016 influenza, seasonal, injectable, preservative free Kenneth Ludin V, DO Work Phone: [facility] Work Phone: 06-02-2015 influenza, injectabl e, quadrivalent, preservative free Andrea Mosley MD Work Phone: [facility] Work Phone: 06-02-2015 influenza, seasonal, injectable Kenneth Ludin V, DO Work Phone: [facility] Work Phone: 06-02-2015 influenza, seasonal, injectable, preservative free Kenneth Ludin V, DO Work Phone: [facility] Work Phone: 02-23-2015 hepatitis B vaccine, pediatric or pediatric/adolescent dosage Kenneth Ludin V, DO Work Phone: [facility] Work Phone: 09-07-2014 hepatitis B vaccine, pediatric or pediatric/adolescent dosage Kenneth Ludin V, DO Work Phone: [facility] Work Phone: 08-10-2014 hepatitis B vaccine, pediatric or pediatric/adolescent dosage Kenneth Ludin V, DO Work Phone: [facility] Work Phone: 08-10-2014 influenza, injectabl e, quadrivalent, preservative free Andrea Mosley MD Work Phone: [facility] Work Phone: 08-10-2014 influenza, seasonal, injectable Kenneth Noland V, DO Work Phone: [facility] Work Phone: 08-10-2014 influenza, seasonal, injectable, preservative free Kenneth Ludin V, DO Work Phone: [facility] Work Phone: 08-06-2014 hepatitis B vaccine, adult dosage Kenneth Ludin V, DO Work Phone: [facility] Work Phone: 08-06-2014 influenza, seasonal, injectable Kenneth Ludin V, DO Work Phone: [facility] Work Phone: 05-13-2013 influenza, seasonal, injectable Kenneth Ludin V, DO Work Phone: [facility] Work Phone: Payers Date Payer Category Payer Unknown ANTHEM BLUE CROS S AND BLUE SHIELD ANTHEM MEDIBLUE O [id number] 2018-Present [phone] [address] [id number] 2018 Unknown ANTHEM BLUE CROS S AND BLUE SHIELD ANTHEM MEDIBLUE O [id number] 2018-Present [phone] [address] [place] [id number] [facility] [id number] 2018 Unknown [id number] Medicare [id number] Social History Date Type Detail Facility Start: 04-28-2020 End: 09-01-2022 Tobacco smoking status MNIS Ex-smoker [facility] End: 09-03-1984 History of tobacco use Current smoker [facility] End: 09-03-1984 History of tobacco use Cigarette Smoker [facility] Start: 12-21-2021 End: 05-17-2023 Alcohol intake Current drinker of alcohol (finding) [facility] Start: 05-11-2010 History SDOH Alcohol Comment occassionally [facility] Start: 1940 Sex Assigned At Male [facility] Start: 12-11-2021 End: 06-05-2022 Exposure to SARS-CoV-2 (event) Not sure [facility] Start: 04-28-2020 End: 01-18-2023 Cigarettes smoked current (pack per day) - Reported 2 [facility] Start: 04-28-2020 End: 09-01-2022 Tobacco use and exposure Smokeless tobacco non-user [facility] Work Phone: Start: 01-18-2023 End: 02-07-2023 Tobacco use panel [facility] National Score (1-100), lower number is lower risk 69 [facility] Start: 04-27-2020 Gender identity Identifies as male gender (finding) [facility] Clinical Notes 04-28-2020 to 08-17-2023 Telephone Encounter - Saira Carson RN - 08/17/2023 1:31 PM ESTTelephone Encounter - Evita Avina - 08/17/2023 11:44 AM ESTTelephone Encounter - Flor Reed RN - 08/17/2023 11:14 AM EST Note Date & Type Note Facility 08-17-2023 Miscellaneous Notes Pt's name has been added to jane procedure board. Saira Carson RN Patient is scheduled for a Cardioversion on 09/06/[address] Alexander. The hospital will call the day before between 2-5pm with your arrival time. You should not eat or drink after midnight the day before the procedure. You will need a city driver when released from the hospital. You should continue to take medications as prescribed the morning of the procedure with just a sip of water unless otherwise instructed. H&P morning of Spoke with Clifton Dunham on August 17, 2023. Informed of instructions as stated above. Patient verbalized understanding. Evita Avina documented in this encounter [facility] 08-17-2023 Miscellaneous Notes Evaluation Only; Please schedule in early September Records reviewed by Dr. Mosley who wishes to offer evaluation. Spoke with patient who requests to be scheduled in early September since he has a vacation scheduled later this month. Will proceed with scheduling process. Case reviewed. 83yo M with AF. S/p 2 PVI. ECHO with normal EF and 2+ TR. BMI 33. Seems to be scheduled for another PVI September. OK to schedule eval for Convergent Plus Procedure. Will need CTA PA protocol to r/o Left Atrial Appendage thrombus and pulmonary vein stenosis, EKG, PFTs, pharmacologic stress test, Duplex carotids, and NICOLE/PVR. Ideally see me last week of August so we can decide if to proceed with another PVI. 08/[address] Mosley for review. Images from the original note were not included. LOCAL PATIENT Received Call from Mr. Roly Dunham is being referred to Andrea Mosley MD by SELF Phone: N/A Fax: Patient diagnosis/Reason for consult: Afib Referral triage process explained: Yes Patient will receive a call from Cardiac NPM after triage review with surgeon to discuss any additional testing and/or consults that will be scheduled. Pt will then receive a call from our scheduling office for scheduling. Please call pt at [phone]. Patient Registration: Registration complete/updated: yes Insurance card(s) scanned in [employer] with in the past year: Yes: Date: March 2023 Pt's MyChart is active. Ok to communicate to pt via Data [employer] yes Medical Records: Records in [facility] (internal [facility] records): Yes Imaging in [facility] (internal [facility] records): Yes Care Everywhere - queried yes, downloaded Yes Linked Outside Organizations (list): Additional providers added to Care Teams: Yes Additional Notes/Comments: Enct routed to: Yes, Cardiac NPM for triage Tania Aly documented in this encounter [facility] 07-16-2023 Miscellaneous Notes Spoke with Mr. Suarez about recommendations. Patient voiced understanding and will monitor for next few days and call back to get cardioversion if necessary for A-fib. Jaki Ambriz LPN [facility] Electrophys[facility] (EP) If he remains in atrial fibrillation after the next couple of days we should do a cardioversion. Deloris Alexander MD July 16, 2023 4:02 PM Mr Dunham states last evening 07/15/2023 they went back into A-fib. Patient was given metoprolol in ER to bring Heart rate down but patient is still presently in A-fib. ER told him to take extra metoprolol and hold hydrochlorothiazide. But patient hasn't taken extra dose due to Hr being below 70 today. Please advise. Jaki Ambriz LPN documented in this encounter [facility] 05-25-2023 Note HNO ID: [id number] Author: Kenneth Noland V, DO Service: ? Author Type: Physician Type: Progress Notes Filed: 05/25/2023 11:02 AM Note Text: Patient presents with: right shoulder: Pain in right shoulder - here for an injection HPI: Clifton is a 82 year old male right-hand dominant who presents for evaluation of shoulder pain for ongoing time. The pain was the result of nothing specific. The location is along the lateral aspect of the shoulder, with radiation to the mid brachium. The pain is described as a dull ache and sharp pain, intensity is 10/10 at its worse. The pain is intermittant in nature. The pain is relieved with rest, and aggravated with reaching, lifting, and overhead movements. MEDICATIONS: Current Outpatient Medications on File Prior to Visit Medication Sig hydroCHLOROthiazide 25 mg tablet Take 1 tablet by mouth once daily. losartan (COZAAR) 100 mg tablet Take 1 tablet by mouth once daily. omeprazole (PRILOSEC) 20 mg capsule Take 1 capsule by mouth daily before breakfast. Tadalafil (CIALIS) 10 mg tablet Take 1 tablet by mouth once daily metoprolol tartrate, short acting, (LOPRESSOR) 50 mg tablet Take 50 mg by mouth twice daily. tamsulosin (FLOMAX) 0.4 mg Take 1 capsule by mouth once daily vit C/E/Zn/coppr/lutein/zeaxan (PRESERVISION AREDS-2 ORAL) Take 1 tablet by mouth twice daily. dilTIAZem CD (CARDIZEM CD, CARTIA XT) 180 mg 24 hr capsule Take 1 capsule by mouth twice daily. (Patient taking differently: Take 180 mg by mouth once daily.) cetirizine (ZYRTEC) 10 mg tablet Take 1 tablet by mouth once daily as needed for cold/allergy symptoms. latanoprost (XALATAN) 0.005 % ophthalmic solution INSTILL 1 DROP INTO EACH EYE NIGHTLY levothyroxine (SYNTHROID) 50 mcg tablet TAKE 1 TABLET BY MOUTH ONCE DAILY ON AN EMPTY STOMACH FOR THYROID rivaroxaban (XARELTO) 20 mg tablet Take 1 tablet by mouth once daily. rosuvastatin (CRESTOR) 5 mg tablet Take 1 tablet by mouth daily at bedtime. cyclobenzaprine (FLEXERIL) 5 mg tablet Take 1 tablet by mouth three times daily as needed for muscle spasm. Fluorouracil 5 % cream APPLY A THIN LAYER TO BOTH FOREARMS TWICE A DAY FOR 2 WEEKS, APPLY A THIN LAYER TO THE LEFT FOREARM WHERE CANCERS ARE LOCATED FOR AN ADDITIONAL TWICE A DAY FOR 2 WEEKS Ipratropium Nixon (ATROVENT) 21 mcg (0.03 %) nasal spray Use 1 [place] in the nose as needed. nitroglycerin sublingual (NITROQUICK) 0.4 mg SL tablet Dissolve 0.4 mg under the tongue every 5 minutes as needed for chest pain. aspirin, enteric coated (ASPIRIN, ENTERIC COATED) 81 mg EC tablet Take 81 mg by mouth once daily. Current Facility-Administered Medications on File Prior to Visit Medication sodium chloride 0.9 % (flush) 10 mL (BD POSIFLUSH) ALLERGIES: Patient has no known allergies. 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 antiarrhythmic drug amiodarone since about 01/2020; indication: Symptomatic atrial fibrillation Mixed hyperlipidemia Hyperlipidemia Other symptoms involving digestive system(787.99) PAC (premature atrial contraction) Palpitations Paroxysmal atrial fibrillation (HCC) evidently diagnosed many years ago, initially paroxysmal but more recently probably persistent; +symptomatic, particularly in the evening/nighttime despite medical therapy Persistent atrial fibrillation (HCC) symptomatic; initially paroxysmal then became persistent; refractory to antiarrhythmic drug therapy (amiodarone); s/p balloon catheter cryoablation atrial fibrillation ablation 04/28/2020; RF catheter ablation/PVAI procedures 05/2022, 02/2023 PVC (premature ventricular contraction) Right bundle branch block (RBBB) Status post catheter ablation of atrial fibrillation atrial fibrillation catheter ablation: balloon catheter cryoablation/PVAI 04/28/2020 PAST SURGICAL HISTORY Procedure Laterality Date AFIB ABLATION/PULM VEIN ISOLATION 04/28/2020 atrial fibrillation catheter ablation: balloon catheter cryoablation/PVAI; TESS Alexander AFIB ABLATION/PULM VEIN ISOLATION 05/23/2022 redo atrial fibrillation catheter ablation/PVAI (RF/Carto/Stereotaxis); no inducible SVT/AT/Aflutter; multifocal RA and LA PACs with isoproterenol, nothing [facility]IB ABLATION/PULM VEIN ISOLATION 02/07/2023 redo atrial fibrillation/PVAI including anterior region of right PVs, GIL, SVC/RA junction; [facility] Dr. Alexander CARDIAC CATH 06/21/2016 nonobs (more content not included)... [facility] 05-25-2023 Note HNO ID: [id number] Author: Deanna Barrett RN Service: ? Author Type: Registered Nurse Type: Progress Notes Filed: 05/25/2023 11:02 AM Note Text: Patient presents with: right shoulder: Pain in right shoulder - here for an injection Patient states he fell on a cruise ship in April injuring his right knee and shoulder. States pain has been getting worse in the right shoulder. Here for an injection. AMB ROOMING INTAKE FLOWSHEET DATA Pain Pain Level: 10 Pain Location: Knee-Right Description: Dull Duration Amount of Time: 1 Duration Units: Months Frequency: Continuous Comments: Patient states pain is getting worse [facility] 05-25-2023 History of Present illness Narrative Associated Order(s): Large Joint Arthro/Inj: R subacromial bursa Post-Procedure Diagnose(s): Disorder of rotator cuff, right Patient presents with: right shoulder: Pain in right shoulder - here for an injection HPI: Clifton is a 82 year old male right-hand dominant who presents for evaluation of shoulder pain for ongoing time. The pain was the result of nothing specific. The location is along the lateral aspect of the shoulder, with radiation to the mid brachium. The pain is described as a dull ache and sharp pain, intensity is 10/10 at its worse. The pain is intermittant in nature. The pain is relieved with rest, and aggravated with reaching, lifting, and overhead movements. MEDICATIONS: Current Outpatient Medications on File Prior to Visit Medication Sig hydroCHLOROthiazide 25 mg tablet Take 1 tablet by mouth once daily. losartan (COZAAR) 100 mg tablet Take 1 tablet by mouth once daily. omeprazole (PRILOSEC) 20 mg capsule Take 1 capsule by mouth daily before breakfast. Tadalafil (CIALIS) 10 mg tablet Take 1 tablet by mouth once daily metoprolol tartrate, short acting, (LOPRESSOR) 50 mg tablet Take 50 mg by mouth twice daily. tamsulosin (FLOMAX) 0.4 mg Take 1 capsule by mouth once daily vit C/E/Zn/coppr/lutein/zeaxan (PRESERVISION AREDS-2 ORAL) Take 1 tablet by mouth twice daily. dilTIAZem CD (CARDIZEM CD, CARTIA XT) 180 mg 24 hr capsule Take 1 capsule by mouth twice daily. (Patient taking differently: Take 180 mg by mouth once daily.) cetirizine (ZYRTEC) 10 mg tablet Take 1 tablet by mouth once daily as needed for cold/allergy symptoms. latanoprost (XALATAN) 0.005 % ophthalmic solution INSTILL 1 DROP INTO EACH EYE NIGHTLY levothyroxine (SYNTHROID) 50 mcg tablet TAKE 1 TABLET BY MOUTH ONCE DAILY ON AN EMPTY STOMACH FOR THYROID rivaroxaban (XARELTO) 20 mg tablet Take 1 tablet by mouth once daily. rosuvastatin (CRESTOR) 5 mg tablet Take 1 tablet by mouth daily at bedtime. cyclobenzaprine (FLEXERIL) 5 mg tablet Take 1 tablet by mouth three times daily as needed for muscle spasm. Fluorouracil 5 % cream APPLY A THIN LAYER TO BOTH FOREARMS TWICE A DAY FOR 2 WEEKS, APPLY A THIN LAYER TO THE LEFT FOREARM WHERE CANCERS ARE LOCATED FOR AN ADDITIONAL TWICE A DAY FOR 2 WEEKS Ipratropium Nixon (ATROVENT) 21 mcg (0.03 %) nasal spray Use 1 [place] in the nose as needed. nitroglycerin sublingual (NITROQUICK) 0.4 mg SL tablet Dissolve 0.4 mg under the tongue every 5 minutes as needed for chest pain. aspirin, enteric coated (ASPIRIN, ENTERIC COATED) 81 mg EC tablet Take 81 mg by mouth once daily. Current Facility-Administered Medications on File Prior to Visit Medication sodium chloride 0.9 % (flush) 10 mL (BD POSIFLUSH) ALLERGIES: Patient has no known allergies. HISTORIES: PAST MEDICAL HISTORY Diagnosis Date Allergic rhinitis, cause unspecified Allergic rhinitis Anticoagulant long-term use rivaroxaban (Xarelto); indication: stroke prevention atrial fibrillation Asymptomatic varicose veins Varicose veins At risk for stroke [id number] = 4 (HTN, age2, CAD) Atherosclerosis of lower [place] coronary artery without angina pectoris Coronary artery disease MILD Dyspepsia and other specified disorders of function of stomach Dyspepsia Essential hypertension Hypothyroidism group home current use of antiarrhythmic drug amiodarone since about 01/2020; indication: Symptomatic atrial fibrillation Mixed hyperlipidemia Hyperlipidemia Other symptoms involving digestive system(787.99) PAC (premature atrial contraction) Palpitations Paroxysmal atrial fibrillation (HCC) evidently diagnosed many years ago, initially paroxysmal but more recently probably persistent; +symptomatic, particularly in the evening/nighttime despite medical therapy Persistent atrial fibrillation (HCC) symptomatic; initially paroxysmal then became persistent; refractory to antiarrhythmic drug therapy (amiodarone); s/p balloon catheter cryoablation atrial fibrillation ablation 04/28/2020; RF catheter ablation/PVAI procedures 05/2022, 02/2023 PVC (premature ventricular contraction) Right bundle branch block (RBBB) Status post catheter ablation of atrial fibrillation atrial fibrillation catheter ablation: balloon catheter cryoablation/PVAI 04/28/2020 PAST SURGICAL HISTORY Procedure Laterality Date AFIB ABLATION/PULM VEIN ISOLATION 04/28/2020 atrial fibrillation catheter ablation: balloon catheter cryoablation/PVAI; [facility] Dr. Alexander AFIB ABLATION/PULM VEIN ISOLATION 05/23/2022 redo atrial fibrillation catheter ablation/PVAI (RF/Carto/Stereotaxis); no inducible SVT/AT/Aflutter; multifocal RA and LA PACs with isoproterenol, nothing consistent; [facility] Dr. Alexander AFIB ABLATION/PULM VEIN ISOLATION 02/07/2023 redo atrial fibrillation/PVAI including anterior region of right PVs, GIL, SVC/RA junction; [facility] Dr. Alexander CARDIAC CATH 06/21/2016 nonobstructive CAD CARDIOVERSION, ELECTIVE, ELECTRICAL 07/01/2021 successful zoroastrianism of sinus rhythm from atrial fibrillation; [facility] Dr. Alexander CARDIOVERSION, ELECTIVE, ELECTRICAL 01/12/2022 CARDIOVERSION, ELECTIVE, ELECTRICAL 04/04/2022 CARDIOVERSION, ELECTIVE, ELECTRICAL 07/24/2022 [facility] CARDIOVERSION, ELECTRIC 10/18/2021 [place], [place] COLONOSCOPY FLX DX W/COLLJ SPEC WHEN PFRMD 09/07/2003 Colonoscopy COLONOSCOPY W/BIOPSY SINGLE/MULTIPLE 03/13/2011 ECHOCARDIOGRAM 07/15/2018 LVEF 60% ECHOCARDIOGRAM 08/03/2020 ECHOCARDIOGRAM 10/17/2021 [place], [place] HOLTER MONITOR 48 HOUR 01/2019 PAST SURGICAL HISTORY OF nodule removed from vocal cord STRESS ECHO 06/2016 Social History Tobacco Use Smoking status: Former Packs/day: 2.00 Years: 25.00 Additional pack years: 0.00 Total pack years: 50.00 Types: Cigarettes Quit date: 1985 Years since quittin.7 Smokeless tobacco: Never Vaping Use Vaping Use: Never used Substance Use Topics Alcohol use: Yes Comment: occassionally Drug use: Never PE: General: Well-appearing male in no acute distress. Vital Signs: There were no vitals taken for this visit. Skin: Intact to inspection and palpation. Psychiatric: Mood and affect appropriate. A and O x3. Musculoskeletal Exam: Gait and Station normal. Cervical spine: Normal ROM and normal to palpation. Bilateral upper extremities show equal motion of the elbows, and wrists. Right shoulder exam shows active forward flexion to 160, passively to 160; abduction to 160, IR to belt line, ER adduction was 45. Positive for Hawkin's and Neer's tests. Rotator cuff strength 4/5. Normal stability to testing. Normal tone. No pain to palpation of the AC joint. No pain to palpation of the bicipital groove. Neurologic Exam: Intact sensation and reflexes in both upper extremities. Vascular: 2+ radial pulses, both upper extremities. IMPRESSION: Right shoulder subacromial impingement with rotator cuff disorder. Large Joint Arthro/Inj: R subacromial bursa Informed Consent Consent Obtained: Verbal [place] Protocol SIGN IN TIME OUT 05/25/2023 11:01 AM The procedure site was prepped in the usual sterile fashion. Site: R subacromial bursa Medications: 6 mg betamethasone acetate-betamethasone sodium phosphate 6 mg/mL Anesthetics: 2 mL lidocaine (PF) 10 mg/mL (1 %); 2 mL BUPivacaine (PF) 0.5 % (5 mg/mL) Outcome: Tolerated well, no immediate complications Post-injection instructions were reviewed with the patient and the patient voiced understanding of these instructions. Kenneth Noland DO Patient presents with: right shoulder: Pain in right shoulder - here for an injection Patient states he fell [place] cruise [place] in April injuring his right knee and shoulder. States pain has been getting worse in the right shoulder. Here for an injection. AMB ROOMING INTAKE FLOWSHEET DATA Pain Pain Level: 10 Pain Location: Knee-Right Description: Dull Duration Amount of Time: 1 Duration Units: Months Frequency: Continuous Comments: Patient states pain is getting worse documented in this encounter [facility] 05-17-2023 Note HNO ID: [id number] Author: Veena Sanford, Sediment Remediation Consultant Service: ? Author Type: Sediment Remediation Consultant Type: Nursing Progress Note Filed: 05/17/2023 2:36 PM Note Text: Holter monitor applied. Pt verbalized understanding of monitor use / diary. [facility] 05-17-2023 Note HNO ID: [id number] Author: Kimberly Prado APRN.JAZLYN Service: ? Author Type: Nurse Practitioner Type: Progress Notes Filed: 05/17/2023 3:33 PM Note Text: [facility] Cardiology Electrophysiology PRIMARY CARE PHYSICIAN: Kenneth Noland [address] [place] [address] CHIEF COMPLAINT: Cardiovascular medicine follow up for arrhythmia. HISTORY OF PRESENT ILLNESS: Mr. Dunham is a 82 year old male who presents today for follow-up regarding arrhythmia. History copied from previous notes, edited as needed: Dr. Alexander's note 03/08/20: Mr. Dunham is a 79 year old male who presents today for evaluation of atrial fibrillation, referral from his fourth hand Dr. Amaro. Mr. Dunham states that he has had atrial fibrillation for a very long time, possibly even 20 years ago. He states that in the past the arrhythmia would come and go but more recently has been more persistent, possibly for the past 5 months or so. He states that he was treated with atenolol for many years and then more recently carvedilol. Then about 2 months ago he was treated with amiodarone. He was found recently to have hypothyroidism and has been under treatment for that. He states that he does not notice the atrial fibrillation much during the day when he is active, but he is bothered by palpitations in the evenings and at night. Sometimes he cannot sleep and he has to get up. He believes that he feels better in sinus rhythm than he does in the atrial fibrillation. He denies chest pain, shortness of breath, orthopnea, PND, lightheadedness or syncope. Additional history with Jez Lewis TIA 08/10/20: Patient underwent EPS, PVI cryo catheter ablation of atrial fibrillation on 04/28/[address] Alexander. He transmitted heart rhythm weekly through TTM to the device clinic at [facility] and consistently showed sinus rhythm. 3 month post-ablation echocardiogram on 08/03/20 showed EF 66%, mild septal LVH, diastolic dysfunction stage II and no significant valvular pathology. 24-hour Holter monitor done 08/03/20 showed sinus rhythm with IVCD, no atrial fibrillation, 7 brief episodes SVT likely atrial tachycardia. Patient states he has been feeling fine since the ablation and today is the only day he had any discomfort. He states this morning he was mildly lightheaded when he got out of bed and felt off balance. This was unusual for him. He had mild discomfort on the left side of his chest which felt funny . No associated palpitations, diaphoresis, nausea or shortness of breath. He took his blood pressure 4 times and each time it was normal and 2 out of 4 times the machine said he had an irregular heartbeat. He states he's had occasional twinges on the right side of his chest for about 40 years. He denies any palpitations, shortness of breath, syncope or near-syncope. Additional History Dr. Alexander 11/19/2020: Mr. Dunham presents for follow-up evaluation. He underwent catheter ablation for atrial fibrillation in April 2020. He states that he has been doing reasonably well, not aware of having much or any recurrence of the arrhythmia. He states he fell about 6 weeks ago, hit his head and this required about a dozen stitches in his forehead. Fortunately he did not injure himself more severely. He denies chest pain, shortness of breath, orthopnea, palpitations, PND, lightheadedness or syncope. Additional History Florence Prado CNP 05/24/2021: The patient reports he continues to do well from a heart rhythm perspective. He does report a few months ago he was at the dentist and while getting a routine cleaning, he was laying relatively flat, states the hygienist was pretty rough on him, when he stood up to leave, he felt mildly dizzy, reports this lasted about 2 hours and resolved, has not had recurrence since then. He recently had a Camara's cyst left knee, states he received an injection with improvement. He denies chest discomfort, palpitations, shortness of breath, near-syncope or syncope. Interval History 09/20/2021 Florence Prado TIGHT COOPER: The patient called in a few days after his last appointment and reported being in atrial fibrillation, was confirmed by EKG, he underwent direct-current cardioversion with Dr. Alexander on 07/01/2021 with zoroastrianism of sinus rhythm. He reports he has felt well since the cardioversion procedure in June, has not had recurrence that he is aware of, continues to take carvedilol and Xarelto without any issues. He does try to exercise several times per week, including a combination of cardio and weight resistance exercises. We did have a snowstorm yesterday, the patient had to snow blow his driveway, and reports he was not limited in this activity by any symptoms. He denies chest discomfort, palpitations, shortness of breath, lightheadedness, dizziness, near-syncope or syncope. Additional history Dr. Zabala (more content not included)... [facility] 05-17-2023 Nurse Note Holter monitor applied. Pt verbalized understanding of monitor use / diary. IV in place from CT per pt, flushes easily. DCd intact post echo. Definity given IVP per protocol for echo image enhancement. Pt tolerated well. No signs of infiltration. documented in this encounter [facility] 05-17-2023 Instructions Kimberly Prado APRN.TIGHT COOPER - 05/17/2023 1:55 PM EDT Atrial Fibrillation What is atrial fibrillation? Atrial fibrillation (also called A-fib) is a fast or irregular heartbeat that starts in the upper chambers of the heart. The abnormal heartbeat affects the ability of the heart to pump blood to the rest of the body. What is the cause? An electrical signal in your heart starts each heartbeat, causing the heart muscle to squeeze (contract). Normally, this signal starts in the upper right chamber of the heart (the right atrium) at a place called the sinus node. The signal then follows normal pathways to the upper left atrium and to the lower chambers of the heart (the ventricles). When you have atrial fibrillation, electrical signals don t start in the normal place in the right atrium and don t travel normally. This can cause the upper chambers of the heart (atria) to beat very fast and not in a normal pattern. Common causes of heart rhythm problems are conditions that damage the heart, like coronary artery disease, heart attack, or heart failure. Problems with the heart valves are another common cause. The heart has 4 valves that open and close with each heartbeat to help blood flow in the right direction through the heart. Other causes of atrial fibrillation include: Health problems, such as a stroke, lung disease, diabetes, overactive thyroid gland, or high blood pressure Abuse of alcohol or drugs, such as cocaine Sometimes no cause can be found. What are the symptoms? Some people don t have any symptoms. When atrial fibrillation does cause symptoms, the most common ones are: Feeling like your heart is beating too fast or too hard or skipping beats or fluttering Feeling tired or weak all the time Symptoms that are more serious include: Chest pain Trouble breathing Lightheadedness or dizziness confusion How is it diagnosed? Your healthcare provider will ask about your symptoms and medical history and examine you. Tests may include: An ECG (also called an EKG), which measures and records your heartbeat. You may have an ECG while you are resting or while you exercise on a treadmill. You may also be asked to wear a small portable ECG monitor for a few days or sometimes a couple weeks. Blood tests An echocardiogram, which uses sound waves (ultrasound) to show the structures of the heart, like the valves How is it treated? The goal of treatment is to help the heart keep a normal rhythm. Your treatment depends on the cause of the atrial fibrillation, how often you have symptoms, and the severity of your symptoms. If you have no symptoms, or your symptoms are fairly mild, you may not need treatment. For some people atrial fibrillation lasts just a short time and the heart goes back to a normal rhythm on its own. If you keep having spells of atrial fibrillation, treatment may help keep you from having so many spells. If a health problem like a leaky heart valve is causing the atrial fibrillation, treating the health problem may also treat the fast or irregular heartbeat. Other possible treatments are: Medicine: Your provider may prescribe medicine to slow or restore a normal heart rate and rhythm. You may also need medicine to prevent blood clots because when the heart beats irregularly, some of the blood can stay in the upper chambers too long. This makes it easier for blood clots to form, increasing your risk of having a stroke or heart attack. Electrical cardioversion: First, you will be given medicine called anesthesia to keep you from feeling pain during the procedure. Then your chest will be given an electrical shock. The electrical shock should make your heart start beating normally again. You may need medicine to keep your heart rhythm normal after this procedure. Ablation: Ablation is a procedure that uses a small tube called a catheter to deliver energy to the inside of the heart. The energy (usually radio waves) scars small areas of heart tissue. The scars block abnormal electrical pathways and help you have a normal heart rhythm. With some types of ablation treatment, you will also need a pacemaker. A pacemaker is an electronic device put under the skin of your chest to help control the heartbeat. How can I take care of myself? Take your medicines as prescribed. Keep your appointments for follow-up blood tests. Make sure your healthcare provider knows about changes in your diet or medical condition. Your provider also needs to know about all prescription and nonprescription medicines, herbs, or supplements that you are taking. Some medicines may interact with your heart medicine or increase your risk for atrial fibrillation. If you want to drink alcohol, ask your provider how much is safe for you to drink. Follow your healthcare provider's instructions. Ask your provider: ?How and when you will hear your test results ?How long it will take to recover ?What activities you should avoid and when you can return to your normal activities ?How to take care of yourself at home ?What symptoms or problems you should watch for and what to do if you have them Make sure you know when you should come back for a checkup. How can I help prevent atrial fibrillation? The best prevention is to have a heart-healthy lifestyle. Keep a healthy weight. Eat a healthy diet that is low in sodium and saturated and trans fat. Stay fit with the right kind of exercise for you. Decrease stress. Don t smoke. Limit your use of alcohol. If you have heart disease or high blood pressure, follow your healthcare provider's instructions for treatment. Copyright 2014 [employer] and/or one of its subsidiaries. All rights reserved. documented in this encounter [facility] 05-17-2023 Nurse Note No cardiac concerns today documented in this encounter [facility] 05-17-2023 History of Present illness Narrative Images from the original note were not included. [facility] General Cardiology Electrophysiology PRIMARY CARE PHYSICIAN: Kenneth Noland [address] [place] [address] CHIEF COMPLAINT: Cardiovascular medicine follow up for arrhythmia. HISTORY OF PRESENT ILLNESS: Mr. Dunahm is a 82 year old male who presents today for follow-up regarding arrhythmia. History copied from previous notes, edited as needed: Dr. Alexander's note 03/08/20: Mr. Dunham is a 79 year old male who presents today for evaluation of atrial fibrillation, referral from his fourth hand Dr. Amaro. Mr. Dunham states that he has had atrial fibrillation for a very long time, possibly even 20 years ago. He states that in the past the arrhythmia would come and go but more recently has been more persistent, possibly for the past 5 months or so. He states that he was treated with atenolol for many years and then more recently carvedilol. Then about 2 months ago he was treated with amiodarone. He was found recently to have hypothyroidism and has been under treatment for that. He states that he does not notice the atrial fibrillation much during the day when he is active, but he is bothered by palpitations in the evenings and at night. Sometimes he cannot sleep and he has to get up. He believes that he feels better in sinus rhythm than he does in the atrial fibrillation. He denies chest pain, shortness of breath, orthopnea, PND, lightheadedness or syncope. Additional history with Jez Lewis APRN 08/10/20: Patient underwent EPS, PVI cryo catheter ablation of atrial fibrillation on 04/28/[address] Alexander. He transmitted heart rhythm weekly through TTM to the device clinic at [facility] and consistently showed sinus rhythm. 3 month post-ablation echocardiogram on 08/03/20 showed EF 66%, mild septal LVH, diastolic dysfunction stage II and no significant valvular pathology. 24-hour Holter monitor done 08/03/20 showed sinus rhythm with IVCD, no atrial fibrillation, 7 brief episodes SVT likely atrial tachycardia. Patient states he has been feeling fine since the ablation and today is the only day he had any discomfort. He states this morning he was mildly lightheaded when he got out of bed and felt off balance. This was unusual for him. He had mild discomfort on the left side of his chest which felt funny . No associated palpitations, diaphoresis, nausea or shortness of breath. He took his blood pressure 4 times and each time it was normal and 2 out of 4 times the machine said he had an irregular heartbeat. He states he's had occasional twinges on the right side of his chest for about 40 years. He denies any palpitations, shortness of breath, syncope or near-syncope. Additional History Dr. Alexander 11/19/2020: Mr. Dunham presents for follow-up evaluation. He underwent catheter ablation for atrial fibrillation in April 2020. He states that he has been doing reasonably well, not aware of having much or any recurrence of the arrhythmia. He states he fell about 6 weeks ago, hit his head and this required about a dozen stitches in his forehead. Fortunately he did not injure himself more severely. He denies chest pain, shortness of breath, orthopnea, palpitations, PND, lightheadedness or syncope. Additional History Florence Prado, TIGHT COOPER 05/24/2021: The patient reports he continues to do well from a heart rhythm perspective. He does report a few months ago he was at the dentist and while getting a routine cleaning, he was laying relatively flat, states the hygienist was pretty rough on him, when he stood up to leave, he felt mildly dizzy, reports this lasted about 2 hours and resolved, has not had recurrence since then. He recently had a Camara's cyst left knee, states he received an injection with improvement. He denies chest discomfort, palpitations, shortness of breath, near-syncope or syncope. Interval History 09/20/2021 Florence Prado TIGHT COOPER: The patient called in a few days after his last appointment and reported being in atrial fibrillation, was confirmed by EKG, he underwent direct-current cardioversion with Dr. Alexander on 07/01/2021 with zoroastrianism of sinus rhythm. He reports he has felt well since the cardioversion procedure in June, has not had recurrence that he is aware of, continues to take carvedilol and Xarelto without any issues. He does try to exercise several times per week, including a combination of cardio and weight resistance exercises. We did have a snowstorm yesterday, the patient had to snow blow his driveway, and reports he was not limited in this activity by any symptoms. He denies chest discomfort, palpitations, shortness of breath, lightheadedness, dizziness, near-syncope or syncope. Additional history Dr. Alexander 11/11/2021 : Mr. Dunham presents for follow-up evaluation. He states that he was doing well until just recently in October 2021 when he developed recurrent symptomatic arrhythmia. He states he was in [place] vacationing and visiting family. He states that he experienced palpitations and tachycardia and shortness of breath. He knew that he was back in atrial fibrillation. He thinks that maybe he overdid it with his travels and diet. He states he probably ate too much although otherwise he cannot think of any particular triggers. He was not drinking alcohol heavily for example. He does not think that he was necessarily dehydrated and he was not experiencing any other illnesses at the time. He has not been experiencing exertional symptoms when he is in sinus rhythm, such as shortness of breath or chest pain. When the episode of arrhythmia occurred in [place] a few weeks ago, he was admitted to a [place] hospital, underwent treatment including an electrical cardioversion to restore sinus rhythm on 10/18/2021. Mr. Dunham states that the fourth hand in [place] mentioned possible treatment with an antiarrhythmic drug --- specifically mentioned Tikosyn --- but wanted to leave that to my discretion when Mr. Dunham returned to [place]. Presently, Mr. Dunham feels that he is back to his baseline, feels ok. Additional History 02/22/2022 Florence Prado TIGHT COOPER: The patient had atrial fibrillation recurrence, presented to [facility] ED in January and was cardioverted on 01/12/2022 with zoroastrianism of sinus rhythm. He then followed up with TIA Kevin at his cardiology office who recommended he follow-up to further discuss antiarrhythmic drug therapy versus repeat catheter ablation. Mr. Dunham again presented to [place] ED 01/30/2022 with highly symptomatic atrial fibrillation, underwent cardioversion with zoroastrianism of sinus rhythm. He reports heart rhythm has been stable since the most recent cardioversion, states when he is in atrial fibrillation and rates are in the 130-140 bpm range he experiences palpitations. He continues to take metoprolol 50 mg twice daily and Xarelto 20 mg daily, denies any bleeding issues with Xarelto. We discussed if he were to have another episode of atrial fibrillation that he could take another half dose of the metoprolol to see if his heart rate and symptoms improve. He is very interested in undergoing repeat catheter ablation for atrial fibrillation versus 3-4-day hospital admission for dofetilide loading. We discussed the procedure at length, he would like to proceed. He denies chest discomfort, palpitations, shortness of breath, lightheadedness, dizziness, near-syncope or syncope. Will inform Dr. Alexander regarding patient's desire to undergo repeat catheter ablation. Additional History Dr. Alexander 09/01/2022: Mr. Dunham presents for follow-up evaluation. He underwent redo atrial fibrillation catheter ablation 05/23/2022. He did have recurrence of atrial fibrillation in July, underwent electrical cardioversion at [facility] 07/24/2022. Since that time he states he has done well, not aware of recurrent arrhythmia. He denies chest pain, shortness of breath, orthopnea, palpitations, PND, lightheadedness or syncope. Additional History Evaristo George CNP 09/27/2022: Clifton is a pleasant 82-year-old gentleman who presents today for persistent atrial fibrillation. Overall patient reports he has been feeling decent. He does indicate he was recently in the ED in [place] and was found to be in A. fib with RVR. He was trialed on diltiazem 3 times daily. However his heart rate dropped to low and he was instructed to reduce it to twice daily. Twelve-lead performed in office showed normal sinus rhythm with a ventricular rate of 85. Patient presently denies any angina, shortness of breath, worsening activity tolerance, or constitutional symptoms. He and his are planning on leaving for [place] in the coming days. 24-hour Holter monitor from 08/31 showed normal sinus rhythm with a ventricular rate of 63 with a range of 53-84. Several brief episodes of SVT also noted. Advised patient I will send in a year supply of Cardizem to his preferred pharmacy. Patient agreeable to follow-up in 3 months. Additional history Evaristo George CNP 11/10/2022: Clifton is a pleasant 82-year-old gentleman who presents today for follow-up regarding history of persistent atrial fibrillation. Patient reports he was previously cardioverted in the emergency department at [facility] in September. Twelve-lead performed in office today showed atrial flutter at a ventricular rate of 107. Patient attributes this to forgetting a dose of his Cardizem yesterday. Indicates overall he is felt well. His diltiazem was previously increased to 180 mg twice a day. I have requested he take his blood pressure and heart rate once in the morning upon awakening and once in the evening prior to going to bed for 5 days after starting his beta-racquel on new dose of 75 mg twice daily. Requested patient take 1-1/2 pills of his current supply and I will send in a years of both metoprolol and Cardizem to his preferred pharmacy of [facility] in [place]. TTE performed in August 2022 revealed an ejection fraction of 72%. 24-hour Holter monitor at that time revealed a 0% A-fib burden. Patient's previously undergone 2 PVI's in the past. Patient reports during the daytime he feels his heart rates are okay. Indicates at night is when he feels tachycardic. Patient was inquiring about inpatient drug loading process which we discussed. Will confer with attending regarding plan moving forward. Additional History Evaristo George CNP : Mr. Dunham is a pleasant 82-year-old gentleman who presents today for history and physical update prior to PVI with Dr. Alexander on 02/07/2023. Clifton has a longstanding history of atrial fibrillation and had previously undergone PVI. Once in April 2020 and most recently in May 2022. He is a [id number] 4 secondary to age, hypertension, and CAD. Echo from August 2022 showed an ejection fraction of 72%. His current treatment regimen includes Lopressor 37.5 mg twice daily, diltiazem CD1 180 mg twice daily, and Xarelto 20 mg daily. Patient mentioned he independently decided to start taking half dose of his previously prescribed Lopressor of 75 mg twice daily. EKG demonstrated excellent rate control today with atrial fibrillation at a rate of 81. EKG during last appointment with me on 11/10/2022 revealed atrial flutter with an accelerated rate of 107. His blood pressure today reflected a level of 113/74. Patient presently denies angina, shortness of breath, worse activity tolerance, or constitutional symptoms. Lengthy discussion was had regarding what to expect pre-/intra-/post procedure. Topics included procedure overview, general anesthesia, overnight stay, medications, risk/benefits, post restrictions, and follow-up. Potential benefits included long-term maintenance of normal sinus rhythm. Potential risk of bleeding, stroke, or . Patient verbalized understanding and that he has no further questions at this time. Advised patient to eat and drink well day before procedure with nothing to eat or drink after midnight. Requested patient take his medications morning of procedure prior to coming in with small sips of water. Clifton verbalized I have answered all of his questions and he would like to move forward with PVI. Interval History: The patient underwent radiofrequency catheter ablation of atrial fibrillation with Dr. Alexander 02/07/2023. He was discharged the next day. He had 3-month post ablation testing prior to today's appointment which includes a CT of the chest, echocardiogram and 24-hour Holter monitor was applied. He reports following ablation, he notified our office that he was having episodes of atrial fibrillation, he did come in for an EKG that showed sinus rhythm. He realized that the palpitations would come in the evening after drinking a cola with dinner, since that time he has stopped drinking cola at dinner time, has not had palpitations since. He was recently on a cruise in April, unfortunately while walking down the stairs, he missed a step and landed on his right knee/mcbride, also scraped his left arm, he ended up with a staph infection of the right knee, was treated with antibiotics, and for the most part has healed, still has some redness present on the right knee and mcbride. He denies chest discomfort, palpitations, shortness of breath, lightheadedness, dizziness, near-syncope or syncope. PAST MEDICAL HISTORY Diagnosis Date Allergic rhinitis, cause unspecified Allergic rhinitis Anticoagulant long-term use rivaroxaban (Xarelto); indication: stroke prevention atrial fibrillation Asymptomatic varicose veins Varicose veins At risk for stroke [id number] = 4 (HTN, age2, CAD) Atherosclerosis of [place] coronary artery without angina pectoris Coronary artery disease MILD Dyspepsia and other specified disorders of function of stomach Dyspepsia Essential hypertension Hypothyroidism group home current use of antiarrhythmic drug amiodarone since about 01/2020; indication: Symptomatic atrial fibrillation Mixed hyperlipidemia Hyperlipidemia Other symptoms involving digestive system(787.99) PAC (premature atrial contraction) Palpitations Paroxysmal atrial fibrillation (HCC) evidently diagnosed many years ago, initially paroxysmal but more recently probably persistent; +symptomatic, particularly in the evening/nighttime despite medical therapy Persistent atrial fibrillation (HCC) symptomatic; initially paroxysmal then became persistent; refractory to antiarrhythmic drug therapy (amiodarone); s/p balloon catheter cryoablation atrial fibrillation ablation 04/28/2020; RF catheter ablation/PVAI procedures 05/2022, 02/2023 PVC (premature ventricular contraction) Right bundle branch block (RBBB) Status post catheter ablation of atrial fibrillation atrial fibrillation catheter ablation: balloon catheter cryoablation/PVAI 04/28/2020 PAST SURGICAL HISTORY Procedure Laterality Date AFIB ABLATION/PULM VEIN ISOLATION 04/28/2020 atrial fibrillation catheter ablation: balloon catheter cryoablation/PVAI; TESS Alexander AFIB ABLATION/PULM VEIN ISOLATION 05/23/2022 redo atrial fibrillation catheter ablation/PVAI (RF/Carto/Stereotaxis); no inducible SVT/AT/Aflutter; multifocal RA and LA PACs with isoproterenol, nothing consistent; TESS Alexander AFIB ABLATION/PULM VEIN ISOLATION 02/07/2023 redo atrial fibrillation/PVAI including anterior region of right PVs, GIL, SVC/RA junction; TESS Alexander CARDIAC CATH 06/21/2016 nonobstructive CAD CARDIOVERSION, ELECTIVE, ELECTRICAL 07/01/2021 successful zoroastrianism of sinus rhythm from atrial fibrillation; CCAG Dr. Alexander CARDIOVERSION, ELECTIVE, ELECTRICAL 01/12/2022 CARDIOVERSION, ELECTIVE, ELECTRICAL 04/04/2022 CARDIOVERSION, ELECTIVE, ELECTRICAL 07/24/2022 [facility] CARDIOVERSION, ELECTRIC 10/18/2021 [place], [place] COLONOSCOPY FLX DX W/COLLJ SPEC WHEN PFRMD 09/07/2003 Colonoscopy COLONOSCOPY W/BIOPSY SINGLE/MULTIPLE 03/13/2011 ECHOCARDIOGRAM 07/15/2018 LVEF 60% ECHOCARDIOGRAM 08/03/2020 ECHOCARDIOGRAM 10/17/2021 [place], [place] HOLTER MONITOR 48 HOUR 01/2019 PAST SURGICAL HISTORY OF nodule removed from vocal cord STRESS ECHO 06/2016 Social History Tobacco Use Smoking status: Former Packs/day: 2.00 Years: 25.00 Additional pack years: 0.00 Total pack years: 50.00 Types: Cigarettes Quit date: 1984 Years since quittin.7 Smokeless tobacco: Never Vaping Use Vaping Use: Never used Substance Use Topics Alcohol use: Yes Comment: occassionally Drug use: Never Family History Problem Relation Age of Onset Cancer Father lung Cancer Mother ?liver age 81 ALLERGIES No Known Allergies MEDICATIONS: losartan (COZAAR) 100 mg tablet^Take 1 tablet by mouth once daily.^Disp: 90 tablet^Rfl: 0 omeprazole (PRILOSEC) 20 mg capsule^Take 1 capsule by mouth daily before breakfast.^Disp: 90 capsule^Rfl: 0 Tadalafil (CIALIS) 10 mg tablet^Take 1 tablet by mouth once daily^Disp: 30 tablet^Rfl: 0 metoprolol tartrate, short acting, (LOPRESSOR) 50 mg tablet^Take 50 mg by mouth twice daily.^Disp: ^Rfl: tamsulosin (FLOMAX) 0.4 mg^Take 1 capsule by mouth once daily^Disp: 90 capsule^Rfl: 0 vit C/E/Zn/coppr/lutein/zeaxan (PRESERVISION AREDS-2 ORAL)^Take 1 tablet by mouth twice daily.^Disp: ^Rfl: dilTIAZem CD (CARDIZEM CD, CARTIA XT) 180 mg 24 hr capsule^Take 1 capsule by mouth twice daily.^Disp: 180 capsule^Rfl: 3 (Patient taking differently: Take 180 mg by mouth once daily.) latanoprost (XALATAN) 0.005 % ophthalmic solution^INSTILL 1 DROP INTO EACH EYE NIGHTLY^Disp: 2.5 mL^Rfl: 3 levothyroxine (SYNTHROID) 50 mcg tablet^TAKE 1 TABLET BY MOUTH ONCE DAILY ON AN EMPTY STOMACH FOR THYROID^Disp: 90 tablet^Rfl: 3 rivaroxaban (XARELTO) 20 mg tablet^Take 1 tablet by mouth once daily.^Disp: 90 tablet^Rfl: 3 rosuvastatin (CRESTOR) 5 mg tablet^Take 1 tablet by mouth daily at bedtime.^Disp: 90 tablet^Rfl: 3 cyclobenzaprine (FLEXERIL) 5 mg tablet^Take 1 tablet by mouth three times daily as needed for muscle spasm.^Disp: ^Rfl: Ipratropium Nixon (ATROVENT) 21 mcg (0.03 %) nasal spray^Use 1 [place] in the nose as needed.^Disp: ^Rfl: nitroglycerin sublingual (NITROQUICK) 0.4 mg SL tablet^Dissolve 0.4 mg under the tongue every 5 minutes as needed for chest pain.^Disp: ^Rfl: aspirin, enteric coated (ASPIRIN, ENTERIC COATED) 81 mg EC tablet^Take 81 mg by mouth once daily. ^Disp: ^Rfl: 0 hydroCHLOROthiazide 25 mg tablet^Take 1 tablet by mouth once daily.^Disp: 90 tablet^Rfl: 0 cetirizine (ZYRTEC) 10 mg tablet^Take 1 tablet by mouth once daily as needed for cold/allergy symptoms.^Disp: 90 tablet^Rfl: 3 Fluorouracil 5 % cream^APPLY A THIN LAYER TO BOTH FOREARMS TWICE A DAY FOR 2 WEEKS, APPLY A THIN LAYER TO THE LEFT FOREARM WHERE CANCERS ARE LOCATED FOR AN ADDITIONAL TWICE A DAY FOR 2 WEEKS^Disp: ^Rfl: REVIEW OF SYSTEMS: Review of Systems Constitutional: Negative for chills, diaphoresis and fever. HENT: Negative for nosebleeds. Respiratory: Negative for cough, hemoptysis, sputum production, shortness of breath and wheezing. Cardiovascular: Positive for leg swelling. Negative for chest pain, palpitations, orthopnea and PND (wears CPAP). Gastrointestinal: Negative for blood in stool. Genitourinary: Negative for hematuria. Musculoskeletal: Positive for falls. Negative for myalgias. Neurological: Negative for dizziness, loss of consciousness and headaches. Endo/Heme/Allergies: Bruises/bleeds easily. PHYSICAL EXAMINATION: BP 147/79 Pulse 72 Ht 5' 10 (1.78m) Wt 235 lb (106.6kg) SpO2 97% BMI 33.72 kg/(m^2). Physical Exam Vitals and nursing note reviewed. Constitutional: General: He is not in acute distress. Appearance: He is not diaphoretic. HENT: Head: Normocephalic and atraumatic. Neck: Vascular: No JVD. Cardiovascular: Rate and Rhythm: Normal rate and regular rhythm. Pulses: Radial pulses are 2+ on the right side and 2+ on the left side. Posterior tibial pulses are 2+ on the right side and 2+ on the left side. Heart sounds: S1 normal and S2 normal. No murmur heard. No gallop. Pulmonary: Effort: Pulmonary effort is normal. No respiratory distress. Breath sounds: Normal breath sounds. No wheezing or rales. Chest: Chest wall: No tenderness. Musculoskeletal: General: Normal range of motion. Cervical back: Neck supple. Right lower leg: Edema (trace) present. Left lower leg: Edema (trace) present. Legs: Comments: Redness located on right knee and right mcbride, s/p fall, see HPI Skin: General: Skin is warm and dry. Nails: There is no clubbing. Neurological: Mental Status: He is alert and oriented to person, place, and time. Psychiatric: Mood and Affect: Mood and affect normal. Behavior: Behavior normal. CARDIOVASCULAR MEDICINE TESTING: Echocardiogram: 05/17/2023, results pending. Holter Monitor: Applied 05/17/2023. CT Chest Scan: 05/17/2023, results pending. Echocardiogram: 08/31/2022 CONCLUSIONS: - Exam indication: Sustained atrial fibrillation - The left ventricle is normal in size. There is mild upper septal left ventricular hypertrophy. Left ventricular systolic function is normal. EF = 72 5% (2D biplane) Grade II left ventricular diastolic dysfunction. - The right ventricle is normal in size. Right ventricular systolic function is normal. - The left atrial cavity is mildly dilated. - There are no significant valvular abnormalities. - The visualized aorta is borderline dilated with a maximal dimension of 3.8 cm. - Exam was compared with the prior echocardiographic exam performed on 08/03/2020. Echocardiogram: 08/03/2020 CONCLUSIONS: - Technically difficult exam due to body habitus. - Exam indication: Sustained atrial fibrillation - The left ventricle is normal in size. There is mild upper septal left ventricular hypertrophy. Left ventricular systolic function is normal. EF = 66 5% (2D biplane) Grade II left ventricular diastolic dysfunction. - The right ventricle is normal in size. Right ventricular systolic function is normal. - No significant valve disease. - The patient has not had a prior CC echocardiographic exam for comparison. I have personally reviewed the Electrocardiogram: 05/17/2023 -sinus rhythm with PACs, left axis deviation, RBBB, 61 bpm, NV 162 ms, QRS 138 ms, QT/QTc 468/471 ms. PLAN AND RECOMMENDATIONS: ASSESSMENT/PLAN: 1. Persistent atrial fibrillation (HCC) - ICD9: 427.31, ICD10: I48.19 (primary diagnosis) 2. Status post catheter ablation of atrial fibrillation - ICD9: V45.89, ICD10: Z98.890 -symptomatic; recurrent despite previous cardioversions and antiarrhythmic drug therapy with amiodarone, s/p cryoballoon catheter ablation of atrial fibrillation 04/28/2022; RF catheter ablation of atrial fibrillation 05/23/2022 and 02/07/[address] Alexander. He underwent 3-month post ablation testing prior to today's appointment which includes a CT of the chest, echocardiogram and 24-hour Holter monitor was applied. He states he has been doing well since he cut the evening soda out of his routine, has not had recurrent palpitations. He we will continue diltiazem 180 mg daily, metoprolol tartrate 50 mg twice daily and Xarelto 20 mg daily. He will follow-up in [address] Alexander or DIETITIAN CONSULTANT, or call sooner should any issues arise, patient verbalizes understanding. 3. RBBB (right bundle branch block) - ICD9: 426.4, ICD10: I45.10 -stable, continue to monitor. 4. PAC (premature atrial contraction) - ICD9: 427.61, ICD10: I49.1 5. PVC (premature ventricular contraction) - ICD9: 427.69, ICD10: I49.3 -EKG today demonstrates sinus rhythm with PACs, 61 bpm, continue diltiazem 180 mg daily and metoprolol tartrate 50 mg twice daily. 6. Current use of alf anticoagulation - ICD9: V58.61, ICD10: Z79.01 7. At risk for stroke - ICD9: V15.89, ICD10: Z91.89 -persistent atrial fibrillation/flutter, continue Xarelto 20 mg daily, no signs of bleeding. CHADS2-Vasc Score Breakdown 4 Total Score 2 Age >= 75 years old 1 History of hypertension 1 History of vascular disease Return in about 3 months (around 08/16/2023) for Dr. Alexander or APRN. Kimberly Prado APRN.CNP Medical Decision Making: Problems: Moderate: 2+ stable chronic illnesses Data: Unique source(s) for external note(s) reviewed: 3+ Unique test result(s) reviewed: 3+ Unique test(s) ordered: 1 Risk: Moderate: Drug management and Moderate risk from testing/treatment Medical Decision Making Level: 4 - Moderate The above note was partially created using a dictation recognition software. A reasonable attempt has been made to correct any errors. documented in this encounter [facility] 05-11-2023 Note HNO ID: [id number] Author: Kenneth Noland V DO Service: ? Author Type: Physician Type: Progress Notes Filed: 05/11/2023 3:01 PM Note Text: FRACTURE FOLLOW-UP Mr. Dunham presents today for his follow-up visit from: fall with right knee injury He is four weeks post-injury and was last seen two weeks ago. History: his pain intensity is 3/10. He is improving overall with less pain and swelling in the right knee and leg. He continues to have some welling above the knee. He is also having pain over the top of the right shoulder did not have it evaluated. He said it is getting better, but still causes him some discomfort when he tries to sleep at night. PAST MEDICAL HISTORY Diagnosis Date Allergic rhinitis, cause unspecified Allergic rhinitis Anticoagulant long-term use rivaroxaban (Xarelto); indication: stroke prevention atrial fibrillation Asymptomatic varicose veins Varicose veins At risk for stroke [id number] = 4 (HTN, age2, CAD) Atherosclerosis of [place] coronary artery without angina pectoris Coronary artery disease MILD Dyspepsia and other specified disorders of function of stomach Dyspepsia Essential hypertension Hypothyroidism group home current use of antiarrhythmic drug amiodarone since about 01/2020; indication: Symptomatic atrial fibrillation Mixed hyperlipidemia Hyperlipidemia Other symptoms involving digestive system(787.99) PAC (premature atrial contraction) Palpitations Paroxysmal atrial fibrillation (HCC) evidently diagnosed many years ago, initially paroxysmal but more recently probably persistent; +symptomatic, particularly in the evening/nighttime despite medical therapy Persistent atrial fibrillation (HCC) symptomatic; initially paroxysmal then became persistent; refractory to antiarrhythmic drug therapy (amiodarone); s/p balloon catheter cryoablation atrial fibrillation ablation 04/28/2020; RF catheter ablation/PVAI procedures 05/2022, 02/2023 PVC (premature ventricular contraction) Right bundle branch block (RBBB) Status post catheter ablation of atrial fibrillation atrial fibrillation catheter ablation: balloon catheter cryoablation/PVAI 04/28/2020 PAST SURGICAL HISTORY Procedure Laterality Date AFIB ABLATION/PULM VEIN ISOLATION 04/28/2020 atrial fibrillation catheter ablation: balloon catheter cryoablation/PVAI; [facility] Dr. Alexander AFIB ABLATION/PULM VEIN ISOLATION 05/23/2022 redo atrial fibrillation catheter ablation/PVAI (RF/Carto/Stereotaxis); no inducible SVT/AT/Aflutter; multifocal RA and LA PACs with isoproterenol, nothing consistent; [facility] Dr. Alexander AFIB ABLATION/PULM VEIN ISOLATION 02/07/2023 redo atrial fibrillation/PVAI including anterior region of right PVs, GIL, SVC/RA junction; [facility] Dr. Alexander CARDIAC CATH 06/21/2016 nonobstructive CAD CARDIOVERSION, ELECTIVE, ELECTRICAL 07/01/2021 successful zoroastrianism of sinus rhythm from atrial fibrillation; [facility] Dr. Alexander CARDIOVERSION, ELECTIVE, ELECTRICAL 01/12/2022 CARDIOVERSION, ELECTIVE, ELECTRICAL 04/04/2022 CARDIOVERSION, ELECTIVE, ELECTRICAL 07/24/2022 [facility] CARDIOVERSION, ELECTRIC 10/18/2021 [place], [place] COLONOSCOPY FLX DX W/COLLJ SPEC WHEN PFRMD 09/07/2003 Colonoscopy COLONOSCOPY W/BIOPSY SINGLE/MULTIPLE 03/13/2011 ECHOCARDIOGRAM 07/15/2018 LVEF 60% ECHOCARDIOGRAM 08/03/2020 ECHOCARDIOGRAM 10/17/2021 [place] HOLTER MONITOR 48 HOUR 01/2019 PAST SURGICAL HISTORY OF nodule removed from vocal cord STRESS ECHO 06/2016 Current Outpatient Medications on File Prior to Visit Medication Sig hydroCHLOROthiazide 25 mg tablet Take 1 tablet by mouth once daily. losartan (COZAAR) 100 mg tablet Take 1 tablet by mouth once daily. omeprazole (PRILOSEC) 20 mg capsule Take 1 capsule by mouth daily before breakfast. Tadalafil (CIALIS) 10 mg tablet Take 1 tablet by mouth once daily metoprolol tartrate, short acting, (LOPRESSOR) 50 mg tablet Take 50 mg by mouth twice daily. tamsulosin (FLOMAX) 0.4 mg Take 1 capsule by mouth once daily vit C/E/Zn/coppr/lutein/zeaxan (PRESERVISION AREDS-2 ORAL) Take 1 tablet by mouth twice daily. dilTIAZem CD (CARDIZEM CD, CARTIA XT) 180 mg 24 hr capsule Take 1 capsule by mouth twice daily. (Patient taking differently: Take 180 mg by mouth once daily.) cetirizine (ZYRTEC) 10 mg tablet Take 1 tablet by mouth once daily as needed for cold/allergy symptoms. latanoprost (XALATAN) 0.005 % ophthalmic solution INSTILL 1 DROP INTO EACH EYE NIGHTLY levothyroxine (SYNTHROID) 50 mcg tablet TAKE 1 TABLET BY MOUTH ONCE DAILY ON AN EMPTY STOMACH FOR THYROID rivaroxaban (XARELTO) 20 mg tablet Take 1 tablet by mouth once daily. rosuvastatin (CRESTOR) 5 mg tablet Take 1 tablet by mouth daily at bedtime. cyclobenzaprine (FLEXERIL) 5 mg tablet Take 1 tablet by mouth three times daily as needed for muscle spasm. Fluorouracil 5 % cream APPLY A THIN LAYER TO BOTH FOREARMS TWICE (more content not included)... [facility] 05-11-2023 Note HNO ID: [id number] Author: Mirela Rubio Ma Service: ? Author Type: ? Type: Progress Notes Filed: 05/11/2023 3:01 PM Note Text: AMB ROOMING INTAKE FLOWSHEET DATA Pain Pain Level: 2 Pain Location: (right knee and right shoulder) Description: Aching Duration Amount of Time: (ongoing) Frequency: Intermittent Intervention/Comfort measure: Other: See comment (none) [facility] 05-11-2023 History of Present illness Narrative FRACTURE FOLLOW-UP Mr. Dunham presents today for his follow-up visit from: fall with right knee injury He is four weeks post-injury and was last seen two weeks ago. History: his pain intensity is 3/10. He is improving overall with less pain and swelling in the right knee and leg. He continues to have some welling above the knee. He is also having pain over the top of the right shoulder did not have it evaluated. He said it is getting better, but still causes him some discomfort when he tries to sleep at night. PAST MEDICAL HISTORY Diagnosis Date Allergic rhinitis, cause unspecified Allergic rhinitis Anticoagulant long-term use rivaroxaban (Xarelto); indication: stroke prevention atrial fibrillation Asymptomatic varicose veins Varicose veins At risk for stroke [id number] = 4 (HTN, age2, CAD) Atherosclerosis of [place] coronary artery without angina pectoris Coronary artery disease MILD Dyspepsia and other specified disorders of function of stomach Dyspepsia Essential hypertension Hypothyroidism group home current use of antiarrhythmic drug amiodarone since about 01/2020; indication: Symptomatic atrial fibrillation Mixed hyperlipidemia Hyperlipidemia Other symptoms involving digestive system(787.99) PAC (premature atrial contraction) Palpitations Paroxysmal atrial fibrillation (HCC) evidently diagnosed many years ago, initially paroxysmal but more recently probably persistent; +symptomatic, particularly in the evening/nighttime despite medical therapy Persistent atrial fibrillation (HCC) symptomatic; initially paroxysmal then became persistent; refractory to antiarrhythmic drug therapy (amiodarone); s/p balloon catheter cryoablation atrial fibrillation ablation 04/28/2020; RF catheter ablation/PVAI procedures 05/2022, 02/2023 PVC (premature ventricular contraction) Right bundle branch block (RBBB) Status post catheter ablation of atrial fibrillation atrial fibrillation catheter ablation: balloon catheter cryoablation/PVAI 04/28/2020 PAST SURGICAL HISTORY Procedure Laterality Date AFIB ABLATION/PULM VEIN ISOLATION 04/28/2020 atrial fibrillation catheter ablation: balloon catheter cryoablation/PVAI; [facility] Dr. Alexander AFIB ABLATION/PULM VEIN ISOLATION 05/23/2022 redo atrial fibrillation catheter ablation/PVAI (RF/Carto/Stereotaxis); no inducible SVT/AT/Aflutter; multifocal RA and LA PACs with isoproterenol, nothing consistent; [facility] Dr. Alexander AFIB ABLATION/PULM VEIN ISOLATION 02/07/2023 redo atrial fibrillation/PVAI including anterior region of right PVs, GIL, SVC/RA junction; [facility] Dr. Alexander CARDIAC CATH 06/21/2016 nonobstructive CAD CARDIOVERSION, ELECTIVE, ELECTRICAL 07/01/2021 successful zoroastrianism of sinus rhythm from atrial fibrillation; [facility] Dr. Alexander CARDIOVERSION, ELECTIVE, ELECTRICAL 01/12/2022 CARDIOVERSION, ELECTIVE, ELECTRICAL 04/04/2022 CARDIOVERSION, ELECTIVE, ELECTRICAL 07/24/2022 [facility] CARDIOVERSION, ELECTRIC 10/18/2021 [place] COLONOSCOPY FLX DX W/COLLJ SPEC WHEN PFRMD 09/07/2003 Colonoscopy COLONOSCOPY W/BIOPSY SINGLE/MULTIPLE 03/13/2011 ECHOCARDIOGRAM 07/15/2018 LVEF 60% ECHOCARDIOGRAM 08/03/2020 ECHOCARDIOGRAM 10/17/2021 [place], [place] HOLTER MONITOR 48 HOUR 01/2019 PAST SURGICAL HISTORY OF nodule removed from vocal cord STRESS ECHO 06/2016 Current Outpatient Medications on File Prior to Visit Medication Sig hydroCHLOROthiazide 25 mg tablet Take 1 tablet by mouth once daily. losartan (COZAAR) 100 mg tablet Take 1 tablet by mouth once daily. omeprazole (PRILOSEC) 20 mg capsule Take 1 capsule by mouth daily before breakfast. Tadalafil (CIALIS) 10 mg tablet Take 1 tablet by mouth once daily metoprolol tartrate, short acting, (LOPRESSOR) 50 mg tablet Take 50 mg by mouth twice daily. tamsulosin (FLOMAX) 0.4 mg Take 1 capsule by mouth once daily vit C/E/Zn/coppr/lutein/zeaxan (PRESERVISION AREDS-2 ORAL) Take 1 tablet by mouth twice daily. dilTIAZem CD (CARDIZEM CD, CARTIA XT) 180 mg 24 hr capsule Take 1 capsule by mouth twice daily. (Patient taking differently: Take 180 mg by mouth once daily.) cetirizine (ZYRTEC) 10 mg tablet Take 1 tablet by mouth once daily as needed for cold/allergy symptoms. latanoprost (XALATAN) 0.005 % ophthalmic solution INSTILL 1 DROP INTO EACH EYE NIGHTLY levothyroxine (SYNTHROID) 50 mcg tablet TAKE 1 TABLET BY MOUTH ONCE DAILY ON AN EMPTY STOMACH FOR THYROID rivaroxaban (XARELTO) 20 mg tablet Take 1 tablet by mouth once daily. rosuvastatin (CRESTOR) 5 mg tablet Take 1 tablet by mouth daily at bedtime. cyclobenzaprine (FLEXERIL) 5 mg tablet Take 1 tablet by mouth three times daily as needed for muscle spasm. Fluorouracil 5 % cream APPLY A THIN LAYER TO BOTH FOREARMS TWICE A DAY FOR 2 WEEKS, APPLY A THIN LAYER TO THE LEFT FOREARM WHERE CANCERS ARE LOCATED FOR AN ADDITIONAL TWICE A DAY FOR 2 WEEKS Ipratropium Nixon (ATROVENT) 21 mcg (0.03 %) nasal spray Use 1 [place] in the nose as needed. aspirin, enteric coated (ASPIRIN, ENTERIC COATED) 81 mg EC tablet Take 81 mg by mouth once daily. cefdinir (OMNICEF) 300 mg capsule Take 1 capsule by mouth twice daily. metoprolol tartrate, short acting, 75 mg tab Take 1 tablet by mouth twice daily. (Patient not taking: Reported on 03/20/2023) nitroglycerin sublingual (NITROQUICK) 0.4 mg SL tablet Dissolve 0.4 mg under the tongue every 5 minutes as needed for chest pain. Current Facility-Administered Medications on File Prior to Visit Medication perflutren lipid microspheres 1.3 mL in NaCl (PF) 0.9% 10 mL injection (DEFINITY) sodium chloride 0.9 % (flush) 10 mL (BD POSIFLUSH) Radiographs: Not applicable Physical Examination: Elevation of the right shoulder shows soft swelling above the acromioclavicular joint with mild tenderness on palpation. There is no significant range of motion restriction of the AC joint. Evaluation of the right lower leg shows significant improvement of joint effusion and soft tissue swelling. Minimal tenderness to palpation along the medial and lateral knee. No significant laxity with varus or valgus stress to the knee. PROCEDURE: Not applicable Impression: Fall with right knee and leg contusion AC joint sprain Plan: Continue with range of motion exercises, as after activity, If shoulder continues to be will some causing sleep issues at night, consider AC joint injection Kenneth Noland DO AMB ROOMING INTAKE FLOWSHEET DATA Pain Pain Level: 2 Pain Location: (right knee and right shoulder) Description: Aching Duration Amount of Time: (ongoing) Frequency: Intermittent Intervention/Comfort measure: Other: See comment (none) documented in this encounter [facility] 04-30-2023 Miscellaneous Notes Pt would like to know if he could get additional refills with this order so he would not have to call in for refill every time. Patient has been identified by name and date of : Yes Last office visit in this department: 04/25/2023 RX INSTRUCTIONS: Patient aware RX will be sent to pharmacy. No need to notify patient. Patient phones requesting refills as follows: Requested Prescriptions Pending Prescriptions Disp Refills hydroCHLOROthiazide 25 mg tablet 90 tablet 0 Sig: Take 1 tablet by mouth once daily. losartan (COZAAR) 100 mg tablet 90 tablet 0 Sig: Take 1 tablet by mouth once daily. Please review and advise. Magdalene Hendrickson documented in this encounter [facility] 04-25-2023 Note HNO ID: [id number] Author: Kenneth Noland V DO Service: ? Author Type: Physician Type: Progress Notes Filed: 04/25/2023 3:27 PM Note Text: Clifton Dunham presents with pain, swelling, painful movement, stiffness, and injury in the right knee. He was on an [employer] cruise 2 weeks ago. He was going down a stairwell when he lost balance and fell landing on right knee and both forearms. States that the knee swelled significantly was acutely painful. At the end of the cruise he was seen at an urgent care where he was evaluated. He had a bleb on the right knee with a contusion that was cultured and he was started on antibiotics. Returning home, he states that the knee is still quite swollen and stiff, and he has pain when he tries to bend the knee. He states that once he gets up and moving it seems to feel little bit better. Has been using compression, dressings to the abrasion area, and 2 days ago switched from doxycycline to Omnicef when the culture returned for Staph aureus, distant to tetracyclines but sensitive to penicillin and cephalosporin. PAST MEDICAL HISTORY Diagnosis Date Allergic rhinitis, cause unspecified Allergic rhinitis Anticoagulant long-term use rivaroxaban (Xarelto); indication: stroke prevention atrial fibrillation Asymptomatic varicose veins Varicose veins At risk for stroke [id number] = 4 (HTN, age2, CAD) Atherosclerosis of [place] coronary artery without angina pectoris Coronary artery disease MILD Dyspepsia and other specified disorders of function of stomach Dyspepsia Essential hypertension Hypothyroidism group home current use of antiarrhythmic drug amiodarone since about 01/2020; indication: Symptomatic atrial fibrillation Mixed hyperlipidemia Hyperlipidemia Other symptoms involving digestive system(787.99) PAC (premature atrial contraction) Palpitations Paroxysmal atrial fibrillation (HCC) evidently diagnosed many years ago, initially paroxysmal but more recently probably persistent; +symptomatic, particularly in the evening/nighttime despite medical therapy Persistent atrial fibrillation (HCC) symptomatic; initially paroxysmal then became persistent; refractory to antiarrhythmic drug therapy (amiodarone); s/p balloon catheter cryoablation atrial fibrillation ablation 04/28/2020; RF catheter ablation/PVAI procedures 05/2022, 02/2023 PVC (premature ventricular contraction) Right bundle branch block (RBBB) Status post catheter ablation of atrial fibrillation atrial fibrillation catheter ablation: balloon catheter cryoablation/PVAI 04/28/2020 PAST SURGICAL HISTORY Procedure Laterality Date AFIB ABLATION/PULM VEIN ISOLATION 04/28/2020 atrial fibrillation catheter ablation: balloon catheter cryoablation/PVAI; [facility] Dr. Alexander AFIB ABLATION/PULM VEIN ISOLATION 05/23/2022 redo atrial fibrillation catheter ablation/PVAI (RF/Carto/Stereotaxis); no inducible SVT/AT/Aflutter; multifocal RA and LA PACs with isoproterenol, nothing consistent; [facility] Dr. Alexander AFIB ABLATION/PULM VEIN ISOLATION 02/07/2023 redo atrial fibrillation/PVAI including anterior region of right PVs, GIL, SVC/RA junction; [facility] Dr. Alexander CARDIAC CATH 06/21/2016 nonobstructive CAD CARDIOVERSION, ELECTIVE, ELECTRICAL 07/01/2021 successful zoroastrianism of sinus rhythm from atrial fibrillation; [facility] Dr. Alexander CARDIOVERSION, ELECTIVE, ELECTRICAL 01/12/2022 CARDIOVERSION, ELECTIVE, ELECTRICAL 04/04/2022 CARDIOVERSION, ELECTIVE, ELECTRICAL 07/24/2022 [facility] CARDIOVERSION, ELECTRIC 10/18/2021 [place] COLONOSCOPY FLX DX W/COLLJ SPEC WHEN PFRMD 09/07/2003 Colonoscopy COLONOSCOPY W/BIOPSY SINGLE/MULTIPLE 03/13/2011 ECHOCARDIOGRAM 07/15/2018 LVEF 60% ECHOCARDIOGRAM 08/03/2020 ECHOCARDIOGRAM 10/17/2021 [place], [place] HOLTER MONITOR 48 HOUR 01/2019 PAST SURGICAL HISTORY OF nodule removed from vocal cord STRESS ECHO 06/2016 Current Outpatient Medications on File Prior to Visit Medication Sig cefdinir (OMNICEF) 300 mg capsule Take 1 capsule by mouth twice daily. omeprazole (PRILOSEC) 20 mg capsule Take 1 capsule by mouth daily before breakfast. Tadalafil (CIALIS) 10 mg tablet Take 1 tablet by mouth once daily metoprolol tartrate, short acting, (LOPRESSOR) 50 mg tablet Take 50 mg by mouth twice daily. tamsulosin (FLOMAX) 0.4 mg Take 1 capsule by mouth once daily losartan (COZAAR) 100 mg tablet Take 1 tablet by mouth once daily vit C/E/Zn/coppr/lutein/zeaxan (PRESERVISION AREDS-2 ORAL) Take 1 tablet by mouth twice daily. hydroCHLOROthiazide 25 mg tablet Take 1 tablet by mouth once daily. latanoprost (XALATAN) 0.005 % ophthalmic solution INSTILL 1 DROP INTO EACH EYE NIGHTLY levothyroxine (SYNTHROID) 50 mcg tablet TAKE 1 TABLET BY MOUTH ONCE DAILY ON AN EMPTY STOMACH FOR THYROID rivaroxaban (XARELTO) 20 mg tablet Take 1 tablet by mouth once daily. rosuvastatin (CRESTOR) 5 mg tablet Take 1 tab (more content not included)... [facility] 04-25-2023 Note HNO ID: [id number] Author: Mirela Rubio Ma Service: ? Author Type: ? Type: Progress Notes Filed: 04/25/2023 3:27 PM Note Text: AMB ROOMING INTAKE FLOWSHEET DATA Pain Pain Level: (unable to rate) Pain Location: Thigh-Right Description: Stiffness Duration Amount of Time: 1 Duration Units: Weeks Frequency: Continuous Intervention/Comfort measure: Other: See comment (compression) [facility] 04-25-2023 History of Present illness Narrative Clifton Dunham presents with pain, swelling, painful movement, stiffness, and injury in the right knee. He was on an [employer] cruise 2 weeks ago. He was going down a stairwell when he lost balance and fell landing on right knee and both forearms. States that the knee swelled significantly was acutely painful. At the end of the cruise he was seen at an urgent care where he was evaluated. He had a bleb on the right knee with a contusion that was cultured and he was started on antibiotics. Returning home, he states that the knee is still quite swollen and stiff, and he has pain when he tries to bend the knee. He states that once he gets up and moving it seems to feel little bit better. Has been using compression, dressings to the abrasion area, and 2 days ago switched from doxycycline to Omnicef when the culture returned for Staph aureus, distant to tetracyclines but sensitive to penicillin and cephalosporin. 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 drug amiodarone since about 01/2020; indication: Symptomatic atrial fibrillation Mixed hyperlipidemia Hyperlipidemia Other symptoms involving digestive system(787.99) PAC (premature atrial contraction) Palpitations Paroxysmal atrial fibrillation (HCC) evidently diagnosed many years ago, initially paroxysmal but more recently probably persistent; +symptomatic, particularly in the evening/nighttime despite medical therapy Persistent atrial fibrillation (HCC) symptomatic; initially paroxysmal then became persistent; refractory to antiarrhythmic drug therapy (amiodarone); s/p balloon catheter cryoablation atrial fibrillation ablation 04/28/2020; RF catheter ablation/PVAI procedures 05/2022, 02/2023 PVC (premature ventricular contraction) Right bundle branch block (RBBB) Status post catheter ablation of atrial fibrillation atrial fibrillation catheter ablation: balloon catheter cryoablation/PVAI 04/28/2020 PAST SURGICAL HISTORY Procedure Laterality Date AFIB ABLATION/PULM VEIN ISOLATION 04/28/2020 atrial fibrillation catheter ablation: balloon catheter cryoablation/PVAI; [facility] Dr. Alexander AFIB ABLATION/PULM VEIN ISOLATION 05/23/2022 redo atrial fibrillation catheter ablation/PVAI (RF/Carto/Stereotaxis); no inducible SVT/AT/Aflutter; multifocal RA and LA PACs with isoproterenol, nothing consistent; [facility] Dr. Alexander AFIB ABLATION/PULM VEIN ISOLATION 02/07/2023 redo atrial fibrillation/PVAI including anterior region of right PVs, GIL, SVC/RA junction; [facility] Dr. Alexander CARDIAC CATH 06/21/2016 nonobstructive CAD CARDIOVERSION, ELECTIVE, ELECTRICAL 07/01/2021 successful zoroastrianism of sinus rhythm from atrial fibrillation; [facility] Dr. Alexander CARDIOVERSION, ELECTIVE, ELECTRICAL 01/12/2022 CARDIOVERSION, ELECTIVE, ELECTRICAL 04/04/2022 CARDIOVERSION, ELECTIVE, ELECTRICAL 07/24/2022 [facility] CARDIOVERSION, ELECTRIC 10/18/20[place] COLONOS[place] FLX DX W/COLLJ SPEC WHEN PFRMD 09/07/2003 Colonoscopy COLONOSCOPY W/BIOPSY SINGLE/MULTIPLE 03/13/2011 ECHOCARDIOGRAM 07/15/2018 LVEF 60% ECHOCARDIOGRAM 08/03/2020 ECHOCARDIOGRAM 10/17/2021 [place] HOLTER MONITOR 48 HOUR 01/2019 PAST SURGICAL HISTORY OF nodule removed from vocal cord STRESS ECHO 06/2016 Current Outpatient Medications on File Prior to Visit Medication Sig cefdinir (OMNICEF) 300 mg capsule Take 1 capsule by mouth twice daily. omeprazole (PRILOSEC) 20 mg capsule Take 1 capsule by mouth daily before breakfast. Tadalafil (CIALIS) 10 mg tablet Take 1 tablet by mouth once daily metoprolol tartrate, short acting, (LOPRESSOR) 50 mg tablet Take 50 mg by mouth twice daily. tamsulosin (FLOMAX) 0.4 mg Take 1 capsule by mouth once daily losartan (COZAAR) 100 mg tablet Take 1 tablet by mouth once daily vit C/E/Zn/coppr/lutein/zeaxan (PRESERVISION AREDS-2 ORAL) Take 1 tablet by mouth twice daily. hydroCHLOROthiazide 25 mg tablet Take 1 tablet by mouth once daily. latanoprost (XALATAN) 0.005 % ophthalmic solution INSTILL 1 DROP INTO EACH EYE NIGHTLY levothyroxine (SYNTHROID) 50 mcg tablet TAKE 1 TABLET BY MOUTH ONCE DAILY ON AN EMPTY STOMACH FOR THYROID rivaroxaban (XARELTO) 20 mg tablet Take 1 tablet by mouth once daily. rosuvastatin (CRESTOR) 5 mg tablet Take 1 tablet by mouth daily at bedtime. cyclobenzaprine (FLEXERIL) 5 mg tablet Take 1 tablet by mouth three times daily as needed for muscle spasm. Fluorouracil 5 % cream APPLY A THIN LAYER TO BOTH FOREARMS TWICE A DAY FOR 2 WEEKS, APPLY A THIN LAYER TO THE LEFT FOREARM WHERE CANCERS ARE LOCATED FOR AN ADDITIONAL TWICE A DAY FOR 2 WEEKS Ipratropium Nixon (ATROVENT) 21 mcg (0.03 %) nasal spray Use 1 [place] in the nose as needed. aspirin, enteric coated (ASPIRIN, ENTERIC COATED) 81 mg EC tablet Take 81 mg by mouth once daily. metoprolol tartrate, short acting, 75 mg tab Take 1 tablet by mouth twice daily. (Patient not taking: Reported on 03/20/2023) dilTIAZem CD (CARDIZEM CD, CARTIA XT) 180 mg 24 hr capsule Take 1 capsule by mouth twice daily. (Patient taking differently: Take 180 mg by mouth once daily.) cetirizine (ZYRTEC) 10 mg tablet Take 1 tablet by mouth once daily as needed for cold/allergy symptoms. nitroglycerin sublingual (NITROQUICK) 0.4 mg SL tablet Dissolve 0.4 mg under the tongue every 5 minutes as needed for chest pain. Current Facility-Administered Medications on File Prior to Visit Medication perflutren lipid microspheres 1.3 mL in NaCl (PF) 0.9% 10 mL injection (DEFINITY) sodium chloride 0.9 % (flush) 10 mL (BD POSIFLUSH) Physical Exam Findings: General exam: Normal appearance, pleasant, cooperative, no acute distress Extremeties right knee large effusion with ecchymoses. Tender to palpation over the medial and lateral joint line. There is a open abrasion area over the front of the knee. There is swelling of the right calf with tenderness to palpation. Assessment: Right knee sprain and contusion secondary to fall Large joint effusion, most likely hemarthrosis secondary to trauma, on Xarelto Superficial skin infection with Staph aureus Plan: Continue with compression stocking and wrap, elevation of leg, gentle range of motion, with activity to tolerance continue on xarelto Requested Prescriptions Signed Prescriptions Disp Refills mupirocin (BACTROBAN) 2 % ointment 15 g 0 Sig: Apply to affected area three times daily for 10 days. follow up in 2 weeks Kenneth Noland DO AMB ROOMING INTAKE FLOWSHEET DATA Pain Pain Level: (unable to rate) Pain Location: Thigh-Right Description: Stiffness Duration Amount of Time: 1 Duration Units: Weeks Frequency: Continuous Intervention/Comfort measure: Other: See comment (compression) documented in this encounter [facility] 04-18-2023 Miscellaneous Notes Patient has been identified by name and date of : Yes Last office visit in this department: Visit date not found RX INSTRUCTIONS: Patient aware RX will be sent to pharmacy. No need to notify patient. Patient phones requesting refills as follows: Requested Prescriptions Pending Prescriptions Disp Refills omeprazole (PRILOSEC) 20 mg capsule 90 capsule 0 Sig: Take 1 capsule by mouth daily before breakfast. Please review and advise. Steffi Langley documented in this encounter [facility] 03-20-2023 Nurse Note No cardiac complaints today. Rissa Rodriguez MA documented in this encounter [facility] 03-16-2023 Miscellaneous Notes Please have him get an EKG. Deloris Alexander MD March 16, 2023 6:40 PM Patient called [facility] to report he feels like he is back in a-fib. Reported symptoms are palpitations, fatigue, feeling sluggish- HR 82. Patient taking Metoprolol 50 mg twice daily and diltiazem 180 mg once daily. Magdalene Morris LPN documented in this encounter [facility] 03-12-2023 Miscellaneous Notes Patient called [facility] to report he has cut the dose down of Cardizem to 180 mg once daily- heart rate is normal and no issues with palpitations . Patient taking all other cardiac medications as prescribed. Magdalene Morris LPN documented in this encounter [facility] 02-15-2023 Miscellaneous Notes Post PVAI orders pended for signature documented in this encounter [facility] 02-08-2023 Note HNO ID: [id number] Author: Anthony Cardona RN Service: Care Management Author Type: Registered Nurse Type: Care Mgt Initial Assessment Filed: 02/08/2023 10:35 AM Note Text: CARE MANAGEMENT: ASSESSMENT AND DISCHARGE PLAN SERVICE DATE: February 08, 2023 SERVICE TIME: 1035 PCP: Kenneth Noland DO Primary Contact: Extended Emergency Contact Information Primary Emergency Contact: LINH DUNHAM Mobile Relation: None Admission Status: Ambulatory Surgery Insurance Provider: [facility] Needs Prior to Discharge: Needs Prior to Discharge: To Be Determined Post-Acute Discharge Plan: This patient has been screened for Care Management Transitional Planning Services. At this time, it does not appear this patient will require transition planning services. Should this change, and the patient require transition/discharge planning services during this admission, please call [phone]. Anthony Cardona RN February 08, 2023 10:35 AM SIGNATURE: Anthony Cardona RN PATIENT NAME: Clifton Dunham DATE: February 08, 2023 TIME: 10:35 AM CONTACT #: [id number] [facility] 02-07-2023 Miscellaneous Notes Mr. Dunham would like to transfer care for general cardiology from [facility] (previously Dr. Amaro) to [facility] --- his PCP Dr. Noland had provided name Dr. Vanessa. Please assist with Mr. Dunham getting an appointment, I placed referral in [facility]. Deloris Alexander MD February 07, 2023 3:32 PM documented in this encounter [facility] 02-07-2023 Note HNO ID: [id number] Author: Gwen Grant APRN.CRNA Service: Anesthesiology Author Type: Nurse Geneticist Type: Anesthesia Procedure Notes Filed: 02/07/2023 9:48 AM Note Text: ANESTHESIOLOGY PROCEDURE NOTE Airway General Information Procedure Start Time/Medication Administration: 02/07/2023 9:36 AM Patient location during procedure: OR Timeout Performed Pre-procedure: timeout performed Patient identity confirmed: arm band Staffing BRIM PRESSER: Gwen Grant APRN.BRIM PRESSER Performed by: ARMEN Indications and Patient Condition Indications for airway management: anesthesia Preoxygenated: yes anesthesia circuit Method: asleep Difficult Mask: No Airway Accessory: oral airway Final Airway Details Final airway type: endotracheal airway Final Endotracheal Airway: ETT Cuffed: yes Successful intubation technique: direct laryngoscopy Endotracheal tube insertion site: oral Blade: Kait Blade size: #4 ETT size (mm): 8.0 Measured from: lips Measurement (cm): 23 Placement verified by: chest auscultation and capnometry Cormack-Lehane Classification: grade IIb - view of arytenoids or posterior of glottis only Number of attempts at approach: 1 Airway not difficult SIGNATURE: Gwen Bee APRN.CRNA PATIENT NAME: Clifton Dunham DATE: February 07, 2023 TIME: 9:48 AM CSN: [id number] [facility] 02-02-2023 Miscellaneous Notes Patient phones requesting refills as follows: Requested Prescriptions Pending Prescriptions Disp Refills losartan (COZAAR) 100 mg tablet [Pharmacy Med Name: Losartan Potassium 100 MG Oral Tablet] 90 tablet 0 Sig: Take 1 tablet by mouth once daily Please review and advise. Agueda Webster LPN documented in this encounter [facility] 01-26-2023 Note HNO ID: [id number] Author: Kenneth Noland V, DO Service: ? Author Type: Physician Type: Progress Notes Filed: 01/26/2023 2:19 PM Note Text: SUBJECTIVE: This is a 82 year old male that is here today for a follow-up visit and to discuss fatigue. Ty has multiple medical problems, including chronic atrial fibrillation, obstructive sleep apnea, both thyroidism, impaired fasting glucose, obesity. He states that he feels more fatigued than normal. He did adjust his metoprolol Cardizem on his last visit for rate control of his atrial fibrillation his blood pressure has been running a little bit low that adjustment. He states he is also gained about 20 pounds over the last few years and his activity level has declined. 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 antiarrhythmic drug amiodarone since about 01/2020; indication: Symptomatic atrial fibrillation Mixed hyperlipidemia Hyperlipidemia Other symptoms involving digestive system(787.99) PAC (premature atrial contraction) Palpitations Paroxysmal atrial fibrillation (HCC) evidently diagnosed many years ago, initially paroxysmal but more recently probably persistent; +symptomatic, particularly in the evening/nighttime despite medical therapy Persistent atrial fibrillation (HCC) symptomatic; initially paroxysmal then became persistent; refractory to antiarrhythmic drug therapy (amiodarone); s/p balloon catheter cryoablation atrial fibrillation ablation 04/28/2020 PVC (premature ventricular contraction) Right bundle branch block (RBBB) Status post catheter ablation of atrial fibrillation atrial fibrillation catheter ablation: balloon catheter cryoablation/PVAI 04/28/2020 PAST SURGICAL HISTORY Procedure Laterality Date AFIB ABLATION/PULM VEIN ISOLATION 04/28/2020 atrial fibrillation catheter ablation: balloon catheter cryoablation/PVAI; TESS Alexander AFIB ABLATION/PULM VEIN ISOLATION 05/23/2022 redo atrial fibrillation catheter ablation/PVAI (RF/Carto/Stereotaxis); no inducible SVT/AT/Aflutter; multifocal RA and LA PACs with isoproterenol, nothing consistent; CCAPiotr Alexander CARDIAC CATH 06/21/2016 nonobstructive CAD CARDIOVERSION, ELECTIVE, ELECTRICAL 07/01/2021 successful zoroastrianism of sinus rhythm from atrial fibrillation; CCAG Dr. Alexander CARDIOVERSION, ELECTIVE, ELECTRICAL 01/12/2022 CARDIOVERSION, ELECTIVE, ELECTRICAL 04/04/2022 CARDIOVERSION, ELECTIVE, ELECTRICAL 07/24/2022 [facility] CARDIOVERSION, ELECTRIC 10/18/2021 [place] COLONOS[place] FLX DX W/COLLJ SPEC WHEN PFRMD 09/07/2003 Colonoscopy COLONOSCOPY W/BIOPSY SINGLE/MULTIPLE 03/13/2011 ECHOCARDIOGRAM 07/15/2018 LVEF 60% ECHOCARDIOGRAM 08/03/2020 ECHOCARDIOGRAM 10/17/2021 [place], [place] HOLTER MONITOR 48 HOUR 01/2019 PAST SURGICAL HISTORY OF nodule removed from vocal cord STRESS ECHO 06/2016 Current Outpatient Medications on File Prior to Visit Medication Sig vit C/E/Zn/coppr/lutein/zeaxan (PRESERVISION AREDS-2 ORAL) Take 1 tablet by mouth twice daily. Tadalafil (CIALIS) 10 mg tablet Take 1 tablet by mouth once daily. omeprazole (PRILOSEC) 20 mg capsule Take 1 capsule by mouth daily before breakfast. hydroCHLOROthiazide 25 mg tablet Take 1 tablet by mouth once daily. losartan (COZAAR) 100 mg tablet Take 1 tablet by mouth once daily metoprolol tartrate, short acting, 75 mg tab Take 1 tablet by mouth twice daily. dilTIAZem CD (CARDIZEM CD, CARTIA XT) 180 mg 24 hr capsule Take 1 capsule by mouth twice daily. tamsulosin (FLOMAX) 0.4 mg Take 1 capsule by mouth once daily. cetirizine (ZYRTEC) 10 mg tablet Take 1 tablet by mouth once daily as needed for cold/allergy symptoms. latanoprost (XALATAN) 0.005 % ophthalmic solution INSTILL 1 DROP INTO EACH EYE NIGHTLY levothyroxine (SYNTHROID) 50 mcg tablet TAKE 1 TABLET BY MOUTH ONCE DAILY ON AN EMPTY STOMACH FOR THYROID rivaroxaban (XARELTO) 20 mg tablet Take 1 tablet by mouth once daily. rosuvastatin (CRESTOR) 5 mg tablet Take 1 tablet by mouth daily at bedtime. aspirin, enteric coated (ASPIRIN, ENTERIC COATED) 81 mg EC tablet Take 81 mg by mouth once daily. cyclobenzaprine (FLEXERIL) 5 mg tablet Take 1 tablet by mouth three times daily as needed for muscle spasm. Fluorouracil 5 % cream APPLY A THIN LAYER TO BOTH FOREARMS TWICE A DAY FOR 2 WEEKS, APPLY A THIN LAYER TO THE LEFT FOREARM WHERE CANCERS ARE LOCATED FOR AN ADDITIONAL TWICE A DAY FOR 2 WEEKS (more content not included)... [facility] 01-26-2023 Note HNO ID: [id number] Author: Mirela Rubio Ma Service: ? Author Type: ? Type: Progress Notes Filed: 01/26/2023 2:19 PM Note Text: AMB ROOMING INTAKE FLOWSHEET DATA [facility] 01-18-2023 Note HNO ID: [id number] Author: Evaristo George APRN.CNP Service: ? Author Type: Nurse Practitioner Type: Progress Notes Filed: 01/18/2023 3:51 PM Note Text: [facility] Electrophysiology PRIMARY CARE PHYSICIAN: Kenneth Noland [address] [place] [address] CHIEF COMPLAINT: History and physical update prior to PVI with Dr. Alexander on 02/07/2023. HISTORY OF PRESENT ILLNESS (copied from my previous office note on 11/10/2022): Clifton is a pleasant 82-year-old gentleman who presents today for follow-up regarding history of persistent atrial fibrillation. Patient reports he was previously cardioverted in the emergency department at [facility] in September. Twelve-lead performed in office today showed atrial flutter at a ventricular rate of 107. Patient attributes this to forgetting a dose of his Cardizem yesterday. Indicates overall he is felt well. His diltiazem was previously increased to 180 mg twice a day. I have requested he take his blood pressure and heart rate once in the morning upon awakening and once in the evening prior to going to bed for 5 days after starting his beta-racquel on new dose of 75 mg twice daily. Requested patient take 1-1/2 pills of his current supply and I will send in a years of both metoprolol and Cardizem to his preferred pharmacy of [facility] in [place]. TTE performed in August 2022 revealed an ejection fraction of 72%. 24-hour Holter monitor at that time revealed a 0% A-fib burden. Patient's previously undergone 2 PVI's in the past. Patient reports during the daytime he feels his heart rates are okay. Indicates at night is when he feels tachycardic. Patient was inquiring about inpatient drug loading process which we discussed. Will confer with attending regarding plan moving forward. Interval History: Mr. Dunham is a pleasant 82-year-old gentleman who presents today for history and physical update prior to PVI with Dr. Alexander on 02/07/2023. Clifton has a longstanding history of atrial fibrillation and had previously undergone PVI. Once in April 2020 and most recently in May 2022. He is a [id number] 4 secondary to age, hypertension, and CAD. Echo from August 2022 showed an ejection fraction of 72%. His current treatment regimen includes Lopressor 37.5 mg twice daily, diltiazem CD1 180 mg twice daily, and Xarelto 20 mg daily. Patient mentioned he independently decided to start taking half dose of his previously prescribed Lopressor of 75 mg twice daily. EKG demonstrated excellent rate control today with atrial fibrillation at a rate of 81. EKG during last appointment with me on 11/10/2022 revealed atrial flutter with an accelerated rate of 107. His blood pressure today reflected a level of 113/74. Patient presently denies angina, shortness of breath, worse activity tolerance, or constitutional symptoms. Lengthy discussion was had regarding what to expect pre-/intra-/post procedure. Topics included procedure overview, general anesthesia, overnight stay, medications, risk/benefits, post restrictions, and follow-up. Potential benefits included long-term maintenance of normal sinus rhythm. Potential risk of bleeding, stroke, or . Patient verbalized understanding and that he has no further questions at this time. Advised patient to eat and drink well day before procedure with nothing to eat or drink after midnight. Requested patient take his medications morning of procedure prior to coming in with small sips of water. Clifton verbalized I have answered all of his questions and he would like to move forward with PVI. 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 antiarrhythmic drug amiodarone since about 01/2020; indication: Symptomatic atrial fibrillation Mixed hyperlipidemia Hyperlipidemia Other symptoms involving digestive system(787.99) PAC (premature atrial contraction) Palpitations Paroxysmal atrial fibrillation (HCC) evidently diagnosed many years ago, initially paroxysmal but more recently probably persistent; +symptomatic, particularly in the evening/nighttime despite medical therapy Persistent atrial fibrillation (HCC) symptomatic; initially paroxysmal then became persistent; refractory to antiarrhythmic drug therapy (amiodarone); s/p balloon catheter cryoablation atrial fibrillation ablation 04/28/2020 PVC (premature ventricul (more content not included)... [facility] 01-01-2023 Miscellaneous Notes Verified name and date of . Patient phones requesting refills as follows: Requested Prescriptions Pending Prescriptions Disp Refills omeprazole (PRILOSEC) 20 mg capsule 90 capsule 0 Sig: Take 1 capsule by mouth daily before breakfast. hydroCHLOROthiazide 25 mg tablet 90 tablet 0 Sig: Take 1 tablet by mouth once daily. Patient would also like the metoprolol 50 MG refilled- states the 75 MG was too much and provider had decreased back to 50 MG but did not send in new prescription due to patient having it on had at home. Verified pharmacy. Please review and advise. Kimberly Saleh LPN documented in this encounter [facility] 12-29-2022 Miscellaneous Notes Pt's name has been added to jane procedure board. Saira Carson RN Patient is scheduled for a PVI Ablation on 01/[address] Alexander. The hospital will call the day before between 2-5pm with your arrival time. You should not eat or drink after midnight the day before the procedure. You will need a city driver when released from the hospital and you will stay overnight for observation. You should continue to take medications as prescribed the morning of the procedure with just a sip of water unless otherwise instructed. H&P update on 01/18 at 3pm with Evaristo George [address] - [facility] [address] [place] [address] Spoke with patient and he verbalized understanding of all instructions Evita Avina documented in this encounter [facility] 11-25-2022 Miscellaneous Notes Contacted Mr. Dunham to discuss his arrhythmia. He states mostly at nighttime the heart rates get up into tachycardia range, he feels heart racing. In the daytime he is better, tends to happen in the evening or nighttime. He has only on about two occasions had slow heart rates in the range of about 45 bpm. No severe lightheadedness, near syncope or syncope. He is able to tolerate things when he takes 180 mg twice daily diltiazem and 75 mg twice daily metoprolol. He felt worse when he recently reduced the metoprolol to 50 mg twice daily. I had a detailed discussion with Mr. Dunham regarding the treatment options for the atrial arrhythmia, which is often an atrial flutter (atypical vs typical). He did not have inducible atrial flutter at the previous catheter ablation procedure in May, but perhaps there has been recovery of the ablated regions such as posterior LA wall. The first atrial fibrillation ablation was cryoballoon in 2019. I think repeat catheter ablation has good chance of effectiveness, it is the third ablation procedure but as noted I think the main issue is this atrial flutter and it is likely arising from regions that were only ablated once (May 2022) or not at all (cavotricuspid isthmus). Another option is antiarrhythmic drug therapy but as I already indicated in previous notes I am concerned about Class IC agents with existing AV conduction system disease (RBBB). The Class III agents (dofetilide, sotalol) could be considered but sotalol might result in excessive bradycardia, he has tendency for sinus bradycardia that is already limiting the use of optimal dosages of the metoprolol. Diltiazem at 180 mg twice daily has been helpful. I had a detailed discussion with Mr. Dunham regarding my evaluation and recommendations. After our discussion, Mr. Dunham expressed his understanding and I answered all his questions to his apparent satisfaction. He prefers to pursue another catheter ablation procedure, and I agreed that this treatment strategy is more likely to result in vermin exterminator success than antiarrhythmic drug therapy, and would avoid the issues of bradycardia and medication intolerance. I will place procedure request. INFORMED CONSENT The risks, benefits and anticipated outcomes of the procedure, the risks and benefits of the alternatives to the procedure and the roles and tasks of the personnel to be involved were discussed with the patient. Consent for the procedure and agreement to proceed has been obtained. I verify that I personally obtained the consent. Deloris Alexander MD November 25, 2022 6:59 PM documented in this encounter [facility] 11-23-2022 Miscellaneous Notes Images from the original note were not included. Spoke with patient and notified of Evaristo's message and recommendations. Patient will decrease the metoprolol 50 mg orally twice per day and continue the other medications as prescribed. Patient will continue other medications as prescribed. Schedule for EKG in one week. RONALD Mustafa APRN.JAZLYN You 24 minutes ago (12:28 PM) DL Per heart rate and blood pressure logs there is no evidence of heart rates in the 40s or 50s. Thanks, Evaristo George APRN.JAZLYN November 23, 2022 12:28 PM Evaristo George APRN.JAZLYN [place] 28 minutes ago (12:25 PM) DL Please let patient know I have reviewed the heart rate and blood pressure logs. Overall numbers are acceptable within normal limits range. Occasional blood pressures on the low end of normal. Please inform patient I would like him to hold his Lopressor dose tonight and resume it tomorrow morning at previous dose of 50 mg twice daily. I will be reaching out to him shortly regarding treatment plan. Thanks, Evaristo George APRN.JAZLYN November 23, 2022 12:25 PM Images from the original note were not included. Spoke with patient and he indicated he called the blood pressure log in on 11/16/2022. Patient is concerned in lowering the metoprolol since he had that episode this am. Could you review the blood pressure log and let him know if you still want him to reduce the metoprolol? He will await call scheduling ekg and appointment with you. RONALD Mustafa APRN.JAZLYN You; Deloris Alexander MD; Evita Avina 1 hour ago (10:14 AM) DL I will reach out to patient personally once treatment plan moving forward is confirmed. Thanks, Evaristo George APRN.JAZLYN November 23, 2022 10:14 AM Evaristo George APRN.JAZLYN You; Deloris Alexander MD; Evita Avina 1 hour ago (10:12 AM) DL I evaluated patient on 11/10/2022 in office. At that time he had atrial flutter with slightly elevated rates. We came to a decision to increase his Lopressor to 75 mg twice daily. During appointment I requested patient take his heart rate and blood pressure once in the morning upon awakening and once in the evening prior to going to sleep for 5 days. I requested patient send those results via [employer] or calling the office. Unfortunately I do not see those logs. Dr. Alexander and I previously discussed potential dofetilide loading versus ablation. Please request patient send BP and heart rate logs in. Advise patient he can reduce his metoprolol back down to 50 mg twice a day. Please schedule patient for EKG appointment in 1 week as well as office appointment with me in 1 to 2 months. Thanks, Evaristo George APRN.JAZLYN November 23, 2022 10:11 AM Patient calls and is asking for plan of treatment with the elevated heart rates which are affecting his daily living. Experiencing severe palpitations which are awakening him during the night with heart rates in the 120's and 130's. Adjusting cardiac doses of medication when heart rates start dropping into the 40's. Would like to discuss. Melina Roberts RN Patient called [facility] to report that over the weekend his heart rate has been ranging 47-116 bpm in the evening, when heart rate is 47 he is fatigued and weak. When heart rate is 116 he feels palpitations and fluttering. Patient taking diltiazem 180 mg twice daily and metoprolol 75 mg twice daily. Magdalene Morris LPN documented in this encounter [facility] 11-16-2022 Miscellaneous Notes Patient called [facility] to give updated blood pressure and heart rate log. They are as follows: 11/11: a.m. 127/84 HR 80; p.m. 98/53 HR 64 11/12: a.m.137/89 HR 117; p.m. 110/75 HR 81 11/13: a.m. 123/85 HR 86; p.m. 09/77 HR 112 11/14: a.m. 130/82 HR 91, p.m. 115/70 HR 93 11/15: a.m. 134/78 HR 74; p.m. 113/67 HR 94 11/16: a.m. 129/78 HR 62 Magdalene Morris LPN documented in this encounter [facility] 11-10-2022 Note HNO ID: [id number] Author: Evaristo George APRN.TIGHT COOPER Service: ? Author Type: Nurse Practitioner Type: Progress Notes Filed: 11/10/2022 9:40 AM Note Text: [facility] General Cardiology Electrophysiology PRIMARY CARE PHYSICIAN: Kenneth Noland [address] [place] [address] CHIEF COMPLAINT: Persistent atrial fibrillation. HISTORY OF PRESENT ILLNESS (copied from my previous office note from 09/27/2022): Clifton is a pleasant 82-year-old gentleman who presents today for persistent atrial fibrillation. Overall patient reports he has been feeling decent. He does indicate he was recently in the ED in [place] and was found to be in A. fib with RVR. He was trialed on diltiazem 3 times daily. However his heart rate dropped to low and he was instructed to reduce it to twice daily. Twelve-lead performed in office showed normal sinus rhythm with a ventricular rate of 85. Patient presently denies any angina, shortness of breath, worsening activity tolerance, or constitutional symptoms. He and his are planning on leaving for [place] in the coming days. 24-hour Holter monitor from 08/31 showed normal sinus rhythm with a ventricular rate of 63 with a range of 53-84. Several brief episodes of SVT also noted. Advised patient I will send in a year supply of Cardizem to his preferred pharmacy. Patient agreeable to follow-up in 3 months. Interval History: Clifton is a pleasant 82-year-old gentleman who presents today for follow-up regarding history of persistent atrial fibrillation. Patient reports he was previously cardioverted in the emergency department at [facility] in September. Twelve-lead performed in office today showed atrial flutter at a ventricular rate of 107. Patient attributes this to forgetting a dose of his Cardizem yesterday. Indicates overall he is felt well. His diltiazem was previously increased to 180 mg twice a day. I have requested he take his blood pressure and heart rate once in the morning upon awakening and once in the evening prior to going to bed for 5 days after starting his beta-racquel on new dose of 75 mg twice daily. Requested patient take 1-1/2 pills of his current supply and I will send in a years of both metoprolol and Cardizem to his preferred pharmacy of [facility] in [place]. TTE performed in August 2022 revealed an ejection fraction of 72%. 24-hour Holter monitor at that time revealed a 0% A-fib burden. Patient's previously undergone 2 PVI's in the past. Patient reports during the daytime he feels his heart rates are okay. Indicates at night is when he feels tachycardic. Patient was inquiring about inpatient drug loading process which we discussed. Will confer with attending regarding plan moving forward. PAST MEDICAL HISTORY Diagnosis Date Allergic rhinitis, cause unspecified Allergic rhinitis Anticoagulant long-term use rivaroxaban (Xarelto); indication: stroke prevention atrial fibrillation Asymptomatic varicose veins Varicose veins At risk for stroke [id number] = 4 (HTN, age2, CAD) Atherosclerosis of [place] coronary artery without angina pectoris Coronary artery disease MILD Dyspepsia and other specified disorders of function of stomach Dyspepsia Essential hypertension Hypothyroidism group home current use of antiarrhythmic drug amiodarone since about 01/2020; indication: Symptomatic atrial fibrillation Mixed hyperlipidemia Hyperlipidemia Other symptoms involving digestive system(787.99) PAC (premature atrial contraction) Palpitations Paroxysmal atrial fibrillation (HCC) evidently diagnosed many years ago, initially paroxysmal but more recently probably persistent; +symptomatic, particularly in the evening/nighttime despite medical therapy Persistent atrial fibrillation (HCC) symptomatic; initially paroxysmal then became persistent; refractory to antiarrhythmic drug therapy (amiodarone); s/p balloon catheter cryoablation atrial fibrillation ablation 04/28/2020 PVC (premature ventricular contraction) Right bundle branch block (RBBB) Status post catheter ablation of atrial fibrillation atrial fibrillation catheter ablation: balloon catheter cryoablation/PVAI 04/28/2020 PAST SURGICAL HISTORY Procedure Laterality Date AFIB ABLATION/PULM VEIN ISOLATION 04/28/2020 atrial fibrillation catheter ablation: balloon catheter cryoablation/PVAI; [facility] Dr. Alexander AFIB ABLATION/PULM VEIN ISOLATION 05/23/2022 redo atrial fibrillation catheter ablation/PVAI (RF/Carto/Stereotaxis); no inducible SVT/AT/Aflutter; multifocal RA and LA PACs with isoproterenol, nothing consistent; [facility] Dr. Alexander CARDIAC CATH 06/21/2016 nonobstructive CAD CARDIOVERSION, ELECTIVE, ELECTRICAL 07/01/2021 successful zoroastrianism of sinus rhythm from atrial fibrillation; [facility] Dr. Alexander CARDIOVERSION, ELECTIVE, ELECTRICAL 01/12/2022 CARDIOVERSION, (more content not included)... [facility] 11-10-[address] Alexander, I had the pleasure of seeing patient in office today. He appears to be in atrial flutter with a ventricular rate of 107. I increased his Lopressor to 75 mg twice daily. He is also on Cardizem CD 180 mg twice daily. Requested he take his blood pressure and heart rate twice a day for the next 5 days. Patient was inquiring about drug loading. We discussed process. He was also inquiring about flecainide. Wanted to touch base with you regarding plan moving forward. Thanks, Evaristo Geroge APRN.JAZLYN November 10, 2022 9:44 AM documented in this encounter [facility] 10-26-2022 Miscellaneous Notes I spoke to and informed him of 's response. He voiced understanding and was transferred to clerical for scheduling. Lu Elliott LPN Images from the original note were not included. Deloris Alexnader MD You 14 hours ago (6:50 PM) Let's have him see ASSOCIATE PROJECT MANAGER in the office. Thanks called in and states he was doing good for about a week but the elevated heart rates returned last night and he was running around 120. He is returning to [place] Sunday and asking if you would like any new orders or if he should come in for appointment? States symptoms are always at night and states he is trying to increase water intake and is drinking 2-3 (18 ounce) bottles daily. Patient denies caffeine or alcohol consumption. Lu Elliott LPN Pt calls to report he has continued twice daily diltiazem 180 mg. Pt reports he no longer is having itching and hives have resolved. HR this morning is 78 bpm. Pt reports he drinks very little water. I encouraged him to stay well hydrated with water. Saira Carson RN Pt calls to report he took diltiazem 180mg twice daily yesterday. He reports heart rate better never over 100 bpm. He reports HR this morning 92 bpm. Pt reports he took benadryl last night and this morning. He reports itching is better with benadryl. He denies rash. He does report hives. Saira Carson RN Pt calls stating that for the last 2 weeks his heart rate increases to the 130's every night at 7pm. He says he called and spoke with someone career based intervention coordinator this weekend and they told him to increase his carvedilol to twice daily. Since doing this he is experiencing extreme itching. He is asking if there is another medication he can take to keep his heart from racing every night. Millie Montgomery LPN documented in this encounter [facility] 10-25-2022 Miscellaneous Notes Patient called stating he needs this medication before he heads back home on October 27. Would like medication sent to [facility] (pharmacy already in system). Please advise patient when medication refill has been sent. Fatou Marrufo LPN Change of pharmacy Patient has been identified by name and date of : Yes, Provider LUDIN Patient phones for refill(s): Requested Prescriptions Pending Prescriptions Disp Refills dilTIAZem CD (CARDIZEM CD) 180 mg 24 hr capsule 30 capsule 0 Sig: Take 1 capsule by mouth once daily. Date of last office visit in primary care: 08/11/22 Last 2 Encounter Wt Readings: Date: Wt: 09/27/2022 111.6 kg (246 lb) 09/01/2022 110.7 kg (244 lb) Previous labs/tests for medication: Not applicable Please advise. Thank you. Yamileth Rodriguez documented in this encounter [facility] 09-27-2022 Note HNO ID: [id number] Author: Evaristo George APRN.TIGHT COOPER Service: ? Author Type: Nurse Practitioner Type: Progress Notes Filed: 09/27/2022 1:34 PM Note Text: [facility] Cardiology Electrophysiology PRIMARY CARE PHYSICIAN: Kenneth Noland [address] [place] [address] CHIEF COMPLAINT: Persistent atrial fibrillation. HISTORY OF PRESENT ILLNESS (copied from Dr. Alexander's office note on 09/01/2022): Mr. Dunham presents for follow-up evaluation. He underwent redo atrial fibrillation catheter ablation 05/23/2022. He did have recurrence of atrial fibrillation in July, underwent electrical cardioversion at [facility] 07/24/2022. Since that time he states he has done well, not aware of recurrent arrhythmia. He denies chest pain, shortness of breath, orthopnea, palpitations, PND, lightheadedness or syncope. I have confirmed and edited as necessary, the PFSH and ROS obtained by others. Interval History: Clifton is a pleasant 82-year-old gentleman who presents today for persistent atrial fibrillation. Overall patient reports he has been feeling decent. He does indicate he was recently in the ED in [place] and was found to be in A. fib with RVR. He was trialed on diltiazem 3 times daily. However his heart rate dropped to low and he was instructed to reduce it to twice daily. Twelve-lead performed in office showed normal sinus rhythm with a ventricular rate of 85. Patient presently denies any angina, shortness of breath, worsening activity tolerance, or constitutional symptoms. He and his are planning on leaving for [place] in the coming days. 24-hour Holter monitor from 08/31 showed normal sinus rhythm with a ventricular rate of 63 with a range of 53-84. Several brief episodes of SVT also noted. Advised patient I will send in a year supply of Cardizem to his preferred pharmacy. Patient agreeable to follow-up in 3 months. PAST MEDICAL HISTORY Diagnosis Date Allergic rhinitis, cause unspecified Allergic rhinitis Anticoagulant long-term use rivaroxaban (Xarelto); indication: stroke prevention atrial fibrillation Asymptomatic varicose veins Varicose veins At risk for stroke [id number] = 4 (HTN, age2, CAD) Atherosclerosis of [place] coronary artery without angina pectoris Coronary artery disease MILD Dyspepsia and other specified disorders of function of stomach Dyspepsia Essential hypertension Hypothyroidism group home current use of antiarrhythmic drug amiodarone since about 01/2020; indication: Symptomatic atrial fibrillation Mixed hyperlipidemia Hyperlipidemia Other symptoms involving digestive system(787.99) PAC (premature atrial contraction) Palpitations Paroxysmal atrial fibrillation (HCC) evidently diagnosed many years ago, initially paroxysmal but more recently probably persistent; +symptomatic, particularly in the evening/nighttime despite medical therapy Persistent atrial fibrillation (HCC) symptomatic; initially paroxysmal then became persistent; refractory to antiarrhythmic drug therapy (amiodarone); s/p balloon catheter cryoablation atrial fibrillation ablation 04/28/2020 PVC (premature ventricular contraction) Right bundle branch block (RBBB) Status post catheter ablation of atrial fibrillation atrial fibrillation catheter ablation: balloon catheter cryoablation/PVAI 04/28/2020 PAST SURGICAL HISTORY Procedure Laterality Date AFIB ABLATION/PULM VEIN ISOLATION 04/28/2020 atrial fibrillation catheter ablation: balloon catheter cryoablation/PVAI; [facility] Dr. Alexander AFIB ABLATION/PULM VEIN ISOLATION 05/23/2022 redo atrial fibrillation catheter ablation/PVAI (RF/Carto/Stereotaxis); no inducible SVT/AT/Aflutter; multifocal RA and LA PACs with isoproterenol, nothing consistent; [facility] Dr. Alexander CARDIAC CATH 06/21/2016 nonobstructive CAD CARDIOVERSION, ELECTIVE, ELECTRICAL 07/01/2021 successful zoroastrianism of sinus rhythm from atrial fibrillation; [facility] Dr. Alexander CARDIOVERSION, ELECTIVE, ELECTRICAL 01/12/2022 CARDIOVERSION, ELECTIVE, ELECTRICAL 04/04/2022 CARDIOVERSION, ELECTIVE, ELECTRICAL 07/24/2022 [facility] CARDIOVERSION, ELECTRIC 10/18/2021 [place], [place] COLONOSCOPY FLX DX W/COLLJ SPEC WHEN PFRMD 09/07/2003 Colonoscopy COLONOSCOPY W/BIOPSY SINGLE/MULTIPLE 03/13/2011 ECHOCARDIOGRAM 07/15/2018 LVEF 60% ECHOCARDIOGRAM 08/03/2020 ECHOCARDIOGRAM 10/17/2021 [place], [place] HOLTER MONITOR 48 HOUR 01/2019 PAST SURGICAL HISTORY OF nodule removed from vocal cord STRESS ECHO 06/2016 Social History Tobacco Use Smoking status: Former Packs/day: 2.00 Years: 25.00 Pack years: 50.00 Types: Cigarettes Quit date: 1984 Years since quittin.0 Smokeless tobacco: Never Vaping Use Vaping Use: Never used Substance Use Topics Alcohol use: Yes Comment: occassionally Drug use: Never Family History P (more content not included)... [facility] 09-27-2022 History of Present illness Narrative [facility] Cardiology Electrophysiology PRIMARY CARE PHYSICIAN: Kenneth Noland [address] [place] [address] CHIEF COMPLAINT: Persistent atrial fibrillation. HISTORY OF PRESENT ILLNESS (copied from Dr. Alexander's office note on 09/01/2022): Mr. Dunham presents for follow-up evaluation. He underwent redo atrial fibrillation catheter ablation 05/23/2022. He did have recurrence of atrial fibrillation in July, underwent electrical cardioversion at [facility] 07/24/2022. Since that time he states he has done well, not aware of recurrent arrhythmia. He denies chest pain, shortness of breath, orthopnea, palpitations, PND, lightheadedness or syncope. I have confirmed and edited as necessary, the PFSH and ROS obtained by others. Interval History: Clifton is a pleasant 82-year-old gentleman who presents today for persistent atrial fibrillation. Overall patient reports he has been feeling decent. He does indicate he was recently in the ED in [place] and was found to be in A. fib with RVR. He was trialed on diltiazem 3 times daily. However his heart rate dropped to low and he was instructed to reduce it to twice daily. Twelve-lead performed in office showed normal sinus rhythm with a ventricular rate of 85. Patient presently denies any angina, shortness of breath, worsening activity tolerance, or constitutional symptoms. He and his are planning on leaving for [place] in the coming days. 24-hour Holter monitor from 08/31 showed normal sinus rhythm with a ventricular rate of 63 with a range of 53-84. Several brief episodes of SVT also noted. Advised patient I will send in a year supply of Cardizem to his preferred pharmacy. Patient agreeable to follow-up in 3 months. PAST MEDICAL HISTORY Diagnosis Date Allergic rhinitis, cause unspecified Allergic rhinitis Anticoagulant long-term use rivaroxaban (Xarelto); indication: stroke prevention atrial fibrillation Asymptomatic varicose veins Varicose veins At risk for stroke [id number] = 4 (HTN, age2, CAD) Atherosclerosis of [place] coronary artery without angina pectoris Coronary artery disease MILD Dyspepsia and other specified disorders of function of stomach Dyspepsia Essential hypertension Hypothyroidism 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 antiarrhythmic drug amiodarone since about 01/2020; indication: Symptomatic atrial fibrillation Mixed hyperlipidemia Hyperlipidemia Other symptoms involving digestive system(787.99) PAC (premature atrial contraction) Palpitations Paroxysmal atrial fibrillation (HCC) evidently diagnosed many years ago, initially paroxysmal but more recently probably persistent; +symptomatic, particularly in the evening/nighttime despite medical therapy Persistent atrial fibrillation (HCC) symptomatic; initially paroxysmal then became persistent; refractory to antiarrhythmic drug therapy (amiodarone); s/p balloon catheter cryoablation atrial fibrillation ablation 04/28/2020 PVC (premature ventricular contraction) Right bundle branch block (RBBB) Status post catheter ablation of atrial fibrillation atrial fibrillation catheter ablation: balloon catheter cryoablation/PVAI 04/28/2020 PAST SURGICAL HISTORY Procedure Laterality Date AFIB ABLATION/PULM VEIN ISOLATION 04/28/2020 atrial fibrillation catheter ablation: balloon catheter cryoablation/PVAI; [facility] Dr. Alexander AFIB ABLATION/PULM VEIN ISOLATION 05/23/2022 redo atrial fibrillation catheter ablation/PVAI (RF/Carto/Stereotaxis); no inducible SVT/AT/Aflutter; multifocal RA and LA PACs with isoproterenol, nothing consistent; [facility] Dr. Alexander CARDIAC CATH 06/21/2016 nonobstructive CAD CARDIOVERSION, ELECTIVE, ELECTRICAL 07/01/2021 successful zoroastrianism of sinus rhythm from atrial fibrillation; [facility] Dr. Alexander CARDIOVERSION, ELECTIVE, ELECTRICAL 01/12/2022 CARDIOVERSION, ELECTIVE, ELECTRICAL 04/04/2022 CARDIOVERSION, ELECTIVE, ELECTRICAL 07/24/2022 [facility] CARDIOVERSION, ELECTRIC 10/18/2021 [place] COLONOSCOPY FLX DX W/COLLJ SPEC WHEN PFRMD 09/07/2003 Colonoscopy COLONOSCOPY W/BIOPSY SINGLE/MULTIPLE 03/13/2011 ECHOCARDIOGRAM 07/15/2018 LVEF 60% ECHOCARDIOGRAM 08/03/2020 ECHOCARDIOGRAM 10/17/2021 [place] HOLTER MONITOR 48 HOUR 01/2019 PAST SURGICAL HISTORY OF nodule removed from vocal cord STRESS ECHO 06/2016 Social History Tobacco Use Smoking status: Former Packs/day: 2.00 Years: 25.00 Pack years: 50.00 Types: Cigarettes Quit date: 1984 Years since quittin.0 Smokeless tobacco: Never Vaping Use Vaping Use: Never used Substance Use Topics Alcohol use: Yes Comment: occassionally Drug use: Never Family History Problem Relation Age of Onset Cancer Father lung Cancer Mother ?liver age 81 ALLERGIES No Known Allergies MEDICATIONS: dilTIAZem (CARDIZEM) 60 mg tablet Take 60 mg by mouth twice daily. Patient states this was Dr Amaro's order after being seen at [facility]. montelukast (SINGULAIR) 10 mg tablet TAKE 1 TABLET BY MOUTH ONCE DAILY AT BEDTIME hydroCHLOROthiazide (HYDRODIURIL, ESIDRIX) 25 mg tablet Take 1 tablet by mouth once daily. omeprazole (PRILOSEC) 20 mg capsule Take 1 capsule by mouth daily before breakfast. tamsulosin (FLOMAX) 0.4 mg Take 1 capsule by mouth once daily. losartan (COZAAR) 100 mg tablet Take 1 tablet by mouth once daily albuterol HFA (PROVENTIL HFA, VENTOLIN HFA) 90 mcg/actuation inhaler INHALE 1 PUFF BY MOUTH EVERY 4 HOURS NEEDED FOR COUGH cetirizine (ZYRTEC) 10 mg tablet Take 1 tablet by mouth once daily as needed for cold/allergy symptoms. latanoprost (XALATAN) 0.005 % ophthalmic solution INSTILL 1 DROP INTO EACH EYE NIGHTLY levothyroxine (SYNTHROID) 50 mcg tablet TAKE 1 TABLET BY MOUTH ONCE DAILY ON AN EMPTY STOMACH FOR THYROID metoprolol tartrate, short acting, (LOPRESSOR) 50 mg tablet Take 1 tablet by mouth twice daily. rivaroxaban (XARELTO) 20 mg tablet Take 1 tablet by mouth once daily. rosuvastatin (CRESTOR) 5 mg tablet Take 1 tablet by mouth daily at bedtime. Tadalafil (CIALIS) 10 mg tablet Take 1 tablet by mouth once daily. cyclobenzaprine (FLEXERIL) 5 mg tablet Take 1 tablet by mouth three times daily as needed for muscle spasm. Fluorouracil 5 % cream APPLY A THIN LAYER TO BOTH FOREARMS TWICE A DAY FOR 2 WEEKS, APPLY A THIN LAYER TO THE LEFT FOREARM WHERE CANCERS ARE LOCATED FOR AN ADDITIONAL TWICE A DAY FOR 2 WEEKS Ipratropium Nixon (ATROVENT) 21 mcg (0.03 %) nasal spray Use 1 [place] in the nose as needed. nitroglycerin sublingual (NITROQUICK) 0.4 mg SL tablet Dissolve 0.4 mg under the tongue every 5 minutes as needed for chest pain. aspirin, enteric coated (ASPIRIN, ENTERIC COATED) 81 mg EC tablet Take 81 mg by mouth once daily. REVIEW OF SYSTEMS: Review of Systems Constitutional: Negative for chills, fatigue and fever. Respiratory: Negative for apnea, cough, chest tightness, shortness of breath and wheezing. Cardiovascular: Negative for chest pain, palpitations and leg swelling. Gastrointestinal: Negative for abdominal distention, abdominal pain, constipation, diarrhea, nausea and vomiting. Genitourinary: Negative for difficulty urinating, dysuria and hematuria. Musculoskeletal: Negative for arthralgias. Neurological: Negative for dizziness, weakness, light-headedness and headaches. Psychiatric/Behavioral: Negative for agitation, behavioral problems, confusion and suicidal ideas. PHYSICAL EXAMINATION: BP 117/74 Pulse 91 Ht 5' 10 (1.78m) Wt 246 lb (111.6kg) SpO2 99% BMI 35.30 kg/(m^2). Physical Exam Constitutional: Appearance: He is obese. Cardiovascular: Rate and Rhythm: Normal rate and regular rhythm. Pulses: Normal pulses. Radial pulses are 2+ on the right side and 2+ on the left side. Posterior tibial pulses are 2+ on the right side and 2+ on the left side. Heart sounds: Normal heart sounds, S1 normal and S2 normal. Comments: Normal sinus rhythm at a ventricular rate of 85. Pulmonary: Effort: Pulmonary effort is normal. Breath sounds: Normal breath sounds. Abdominal: General: Bowel sounds are normal. Palpations: Abdomen is soft. Musculoskeletal: Right lower leg: No edema. Left lower leg: No edema. Skin: General: Skin is warm and dry. Neurological: Mental Status: He is alert and oriented to person, place, and time. Psychiatric: Mood and Affect: Mood normal. Behavior: Behavior normal. CARDIOVASCULAR MEDICINE TESTING: TTE 08/31/2022 - Exam indication: Sustained atrial fibrillation - The left ventricle is normal in size. There is mild upper septal left ventricular hypertrophy. Left ventricular systolic function is normal. EF = 72 5% (2D biplane) Grade II left ventricular diastolic dysfunction. - The right ventricle is normal in size. Right ventricular systolic function is normal. - The left atrial cavity is mildly dilated. - There are no significant valvular abnormalities. - The visualized aorta is borderline dilated with a maximal dimension of 3.8 cm. - Exam was compared with the prior echocardiographic exam performed on 08/03/2020. EKG 09/02/2022 2-1 atrial flutter with controlled ventricular rate of 72. RBBB. QRS 144. QT/QTc 418/457. 24-hour Holter monitor 08/31/2022 - 09/01/2022 Primary rhythm was normal sinus rhythm with an average heart rate of 63. Minimum heart rate was 53 and maximal heart rate was 84. AF burden was 0%. SVE burden of 8.29%. SVT 11 events total with the longest lasting 10 beats. I have personally reviewed the TTE, EKG, and 24-hour Holter monitor. PLAN AND RECOMMENDATIONS: ASSESSMENT/PLAN: 1. Persistent atrial fibrillation (HCC) - ICD9: 427.31, ICD10: I48.19 (primary diagnosis) Patient was initially referred to us from Dr. Amaro. Upon initial visit in March 2020 patient revealed he estimated he had been dealing with A. fib on and off for roughly 20 years. At that time he did become more persistent over the past 5 months. Historically patient has undergone PVI in April 2020 with repeat and May 2022. He is also undergone numerous cardioversions with most recent being in July 2022 at [facility]. Current treatment regimen includes diltiazem IR 60 mg twice daily, Lopressor 50 mg twice daily, and Xarelto 20 mg daily. [id number] of 4 secondary to age, CAD, and hypertension. 2. Status post catheter ablation of atrial fibrillation - ICD9: V45.89, ICD10: Z98.890 As above. 3. Essential hypertension - ICD9: 401.9, ICD10: I10 Antihypertensive regimen of Lopressor 50 mg twice daily, Cardizem IR 60 mg twice daily, losartan 100 mg daily, and HCTZ 25 mg daily. BP today 117/74. 4. At risk for stroke - ICD9: V15.89, ICD10: Z91.89 Remains anticoagulated on Xarelto 20 mg daily. [id number] of 4 secondary to age, hypertension, and CAD. Return in about 3 months (around 12/26/2022) for Follow up with Dr. Alexander. . Evaristo George APRN.JAZLYN documented in this encounter [facility] 09-27-2022 Nurse Note NO CARDIAC CONCERNS TODAY. PT DOES REPORT SOME TACHYCARDIA LAST NIGHT AND BACK PAIN TODAY IN THE SHOULDER AREA documented in this encounter [facility] 09-11-2022 Note HNO ID: [id number] Author: Lu Cantrell RDMS Service: ? Author Type: Automation Tender Type: Progress Notes Filed: 09/11/2022 9:24 AM Note Text: Radiology Service Progress Note PATIENT NAME: Clifton Dunham DATE OF SERVICE: September 11, 2022 TIME: 9:24 AM PATIENT IDENTITY VERIFICATION COMPLETED USING TWO (2) IDENTIFIERS: Name and Date of confirmed by patient verbally. FALL SCREENING: Has the patient had 2 falls in the last year or 1 fall with injury or currently using an Ambulatory Assistive Device (Walker, Cane, Wheelchair, Crutches, etc.)? No PATIENT GENDER DATA: Male PATIENT RELEVANT IMPLANT DATA REVIEWED: Not Applicable RADIOLOGY DEPARTMENT: Ultrasound PERIPHERAL IV DATA: Not applicable SIGNED BY: Lu Cantrell RDMS RVT September 11, 2022 9:24 AM [facility] 09-11-2022 History of Present illness Narrative Radiology Service Progress Note PATIENT NAME: Cilfton Dunham DATE OF SERVICE: September 11, 2022 TIME: 9:24 AM PATIENT IDENTITY VERIFICATION COMPLETED USING TWO (2) IDENTIFIERS: Name and Date of confirmed by patient verbally. FALL SCREENING: Has the patient had 2 falls in the last year or 1 fall with injury or currently using an Ambulatory Assistive Device (Walker, Cane, Wheelchair, Crutches, etc.)? No PATIENT GENDER DATA: Male PATIENT RELEVANT IMPLANT DATA REVIEWED: Not Applicable RADIOLOGY DEPARTMENT: Ultrasound PERIPHERAL IV DATA: Not applicable SIGNED BY: Lu Cantrell RDMS RVT September 11, 2022 9:24 AM documented in this encounter [facility] 09-08-2022 Miscellaneous Notes Pt called in requesting refills of below medications. States they are leaving for vacation at the end of the month for 5-6 weeks and wanted to make sure he had enough medication while he was gone. Pt states Frieda had no refills for all his medications, explained to pt pharmacy may not refill since he is not due for any refills. Pt was going to go in person and talk to pharmacy for clarification. The medications pending had no refills ordered. Requested Prescriptions Pending Prescriptions Disp Refills hydroCHLOROthiazide (HYDRODIURIL, ESIDRIX) 25 mg tablet 90 tablet 0 Sig: Take 1 tablet by mouth once daily. omeprazole (PRILOSEC) 20 mg capsule 90 capsule 0 Sig: Take 1 capsule by mouth daily before breakfast. tamsulosin (FLOMAX) 0.4 mg 90 capsule 0 Sig: Take 1 capsule by mouth once daily. documented in this encounter [facility] 09-05-2022 Miscellaneous Notes Patient called [facility] to report that he was seen in [facility] on 09/01/2022 due to heart rate being elevated. Patient asking if ER notes can be reviewed. Any recommendations? Magdalene Morris LPN documented in this encounter [facility] 09-01-2022 Note HNO ID: [id number] Author: Deloris Alexander MD Service: ? Author Type: Physician Type: Progress Notes Filed: 09/01/2022 5:26 PM Note Text: PRIMARY CARE PHYSICIAN: Kenneth Noland [address] [place] [address] Patient Care Team: Kenneth Noland V, DO as PCP - General (Family Medicine) Mainor Amaro as Specialty Dance Director (Cardiology) Deloris Alexander MD as Specialty Dance Director (Cardiology) CHIEF COMPLAINT: Follow up for arrhythmia HISTORY OF PRESENT ILLNESS: Mr. Dunham is a 82 year old male who presents today for a cardiovascular medicine follow-up visit. History copied from previous notes, edited as needed: History copied forward from Dr. Alexander's note 03/08/20: Mr. Dunham is a 79 year old male who presents today for evaluation of atrial fibrillation, referral from his fourth hand Dr. Amaro. Mr. Dunham states that he has had atrial fibrillation for a very long time, possibly even 20 years ago. He states that in the past the arrhythmia would come and go but more recently has been more persistent, possibly for the past 5 months or so. He states that he was treated with atenolol for many years and then more recently carvedilol. Then about 2 months ago he was treated with amiodarone. He was found recently to have hypothyroidism and has been under treatment for that. He states that he does not notice the atrial fibrillation much during the day when he is active, but he is bothered by palpitations in the evenings and at night. Sometimes he cannot sleep and he has to get up. He believes that he feels better in sinus rhythm than he does in the atrial fibrillation. He denies chest pain, shortness of breath, orthopnea, PND, lightheadedness or syncope. Additional history with Jez Lewis APRN 08/10/20: Patient underwent EPS, PVI cryo catheter ablation of atrial fibrillation on 04/28/[address] Alexander. He transmitted heart rhythm weekly through TTM to the device clinic at [facility] and consistently showed sinus rhythm. 3 month post-ablation echocardiogram on 08/03/20 showed EF 66%, mild septal LVH, diastolic dysfunction stage II and no significant valvular pathology. 24-hour Holter monitor done 08/03/20 showed sinus rhythm with IVCD, no atrial fibrillation, 7 brief episodes SVT likely atrial tachycardia. Patient states he has been feeling fine since the ablation and today is the only day he had any discomfort. He states this morning he was mildly lightheaded when he got out of bed and felt off balance. This was unusual for him. He had mild discomfort on the left side of his chest which felt funny . No associated palpitations, diaphoresis, nausea or shortness of breath. He took his blood pressure 4 times and each time it was normal and 2 out of 4 times the machine said he had an irregular heartbeat. He states he's had occasional twinges on the right side of his chest for about 40 years. He denies any palpitations, shortness of breath, syncope or near-syncope. Additional History Dr. Alexander 11/19/2020: Mr. Dunham presents for follow-up evaluation. He underwent catheter ablation for atrial fibrillation in April 2020. He states that he has been doing reasonably well, not aware of having much or any recurrence of the arrhythmia. He states he fell about 6 weeks ago, hit his head and this required about a dozen stitches in his forehead. Fortunately he did not injure himself more severely. He denies chest pain, shortness of breath, orthopnea, palpitations, PND, lightheadedness or syncope. Additional History Florence Prado CNP 05/24/2021: The patient reports he continues to do well from a heart rhythm perspective. He does report a few months ago he was at the dentist and while getting a routine cleaning, he was laying relatively flat, states the hygienist was pretty rough on him, when he stood up to leave, he felt mildly dizzy, reports this lasted about 2 hours and resolved, has not had recurrence since then. He recently had a Camara's cyst left knee, states he received an injection with improvement. He denies chest discomfort, palpitations, shortness of breath, near-syncope or syncope. Interval History 09/20/2021 Florence Prado TIGHT COOPER: The patient called in a few days after his last appointment and reported being in atrial fibrillation, was confirmed by EKG, he underwent direct-current cardioversion with Dr. Alexander on 07/01/2021 with zoroastrianism of sinus rhythm. He reports he has felt well since the cardioversion procedure in June, has not had recurrence that he is aware of, continues to take carvedilol and Xarelto without any issues. He does try to exercise several times per week, including a combination of cardio and weight resistance exercises. We did have a snowstorm yesterday, the patient had to snow blow his driveway, and reports he was not limited in this activity by any symptoms. He denies ch (more content not included)... [facility] 09-01-2022 Nurse Note No cardiac complaints today. /Rissa Rodriguez MA documented in this encounter [facility] 09-01-2022 History of Present illness Narrative Images from the original note were not included. PRIMARY CARE PHYSICIAN: Kenneth Noland [address] [place] [address] Patient Care Team: Kenneth Noland V, DO as PCP - General (Family Medicine) Mainor Amaro as Specialty Dance Director (Cardiology) Deloris Alexander MD as Specialty Dance Director (Cardiology) CHIEF COMPLAINT: Follow up for arrhythmia HISTORY OF PRESENT ILLNESS: Mr. Dunham is a 82 year old male who presents today for a cardiovascular medicine follow-up visit. History copied from previous notes, edited as needed: History copied forward from Dr. Alexander's note 03/08/20: Mr. Dunham is a 79 year old male who presents today for evaluation of atrial fibrillation, referral from his fourth hand Dr. Amaro. Mr. Dunham states that he has had atrial fibrillation for a very long time, possibly even 20 years ago. He states that in the past the arrhythmia would come and go but more recently has been more persistent, possibly for the past 5 months or so. He states that he was treated with atenolol for many years and then more recently carvedilol. Then about 2 months ago he was treated with amiodarone. He was found recently to have hypothyroidism and has been under treatment for that. He states that he does not notice the atrial fibrillation much during the day when he is active, but he is bothered by palpitations in the evenings and at night. Sometimes he cannot sleep and he has to get up. He believes that he feels better in sinus rhythm than he does in the atrial fibrillation. He denies chest pain, shortness of breath, orthopnea, PND, lightheadedness or syncope. Additional history with Jez Lewis APRN 08/10/20: Patient underwent EPS, PVI cryo catheter ablation of atrial fibrillation on 04/28/[address] Alexander. He transmitted heart rhythm weekly through TTM to the device clinic at [facility] and consistently showed sinus rhythm. 3 month post-ablation echocardiogram on 08/03/20 showed EF 66%, mild septal LVH, diastolic dysfunction stage II and no significant valvular pathology. 24-hour Holter monitor done 08/03/20 showed sinus rhythm with IVCD, no atrial fibrillation, 7 brief episodes SVT likely atrial tachycardia. Patient states he has been feeling fine since the ablation and today is the only day he had any discomfort. He states this morning he was mildly lightheaded when he got out of bed and felt off balance. This was unusual for him. He had mild discomfort on the left side of his chest which felt funny . No associated palpitations, diaphoresis, nausea or shortness of breath. He took his blood pressure 4 times and each time it was normal and 2 out of 4 times the machine said he had an irregular heartbeat. He states he's had occasional twinges on the right side of his chest for about 40 years. He denies any palpitations, shortness of breath, syncope or near-syncope. Additional History Dr. Alexander 11/19/2020: Mr. Dunham presents for follow-up evaluation. He underwent catheter ablation for atrial fibrillation in April 2020. He states that he has been doing reasonably well, not aware of having much or any recurrence of the arrhythmia. He states he fell about 6 weeks ago, hit his head and this required about a dozen stitches in his forehead. Fortunately he did not injure himself more severely. He denies chest pain, shortness of breath, orthopnea, palpitations, PND, lightheadedness or syncope. Additional History Florence Prado CNP 05/24/2021: The patient reports he continues to do well from a heart rhythm perspective. He does report a few months ago he was at the dentist and while getting a routine cleaning, he was laying relatively flat, states the hygienist was pretty rough on him, when he stood up to leave, he felt mildly dizzy, reports this lasted about 2 hours and resolved, has not had recurrence since then. He recently had a Camara's cyst left knee, states he received an injection with improvement. He denies chest discomfort, palpitations, shortness of breath, near-syncope or syncope. Interval History 09/20/2021 Florence Prado TIGHT COOPER: The patient called in a few days after his last appointment and reported being in atrial fibrillation, was confirmed by EKG, he underwent direct-current cardioversion with Dr. Alexander on 07/01/2021 with zoroastrianism of sinus rhythm. He reports he has felt well since the cardioversion procedure in June, has not had recurrence that he is aware of, continues to take carvedilol and Xarelto without any issues. He does try to exercise several times per week, including a combination of cardio and weight resistance exercises. We did have a snowstorm yesterday, the patient had to snow blow his driveway, and reports he was not limited in this activity by any symptoms. He denies chest discomfort, palpitations, shortness of breath, lightheadedness, dizziness, near-syncope or syncope. Additional history Dr. Alexander 11/11/2021 : Mr. Dunham presents for follow-up evaluation. He states that he was doing well until just recently in October 2021 when he developed recurrent symptomatic arrhythmia. He states he was in [place] vacationing and visiting family. He states that he experienced palpitations and tachycardia and shortness of breath. He knew that he was back in atrial fibrillation. He thinks that maybe he overdid it with his travels and diet. He states he probably ate too much although otherwise he cannot think of any particular triggers. He was not drinking alcohol heavily for example. He does not think that he was necessarily dehydrated and he was not experiencing any other illnesses at the time. He has not been experiencing exertional symptoms when he is in sinus rhythm, such as shortness of breath or chest pain. When the episode of arrhythmia occurred in [place] a few weeks ago, he was admitted to a [place] hospital, underwent treatment including an electrical cardioversion to restore sinus rhythm on 10/18/2021. Mr. Dunham states that the fourth hand in [place] mentioned possible treatment with an antiarrhythmic drug --- specifically mentioned Tikosyn --- but wanted to leave that to my discretion when Mr. Dunham returned to [place]. Presently, Mr. Dunham feels that he is back to his baseline, feels ok. Interval History 02/22/2022 Florence Prado TIGHT COOPER: The patient had atrial fibrillation recurrence, presented to [facility] ED in January and was cardioverted on 01/12/2022 with zoroastrianism of sinus rhythm. He then followed up with TIA Kevin at his cardiology office who recommended he follow-up to further discuss antiarrhythmic drug therapy versus repeat catheter ablation. Mr. Dunham again presented to [facility] ED 01/30/2022 with highly symptomatic atrial fibrillation, underwent cardioversion with zoroastrianism of sinus rhythm. He reports heart rhythm has been stable since the most recent cardioversion, states when he is in atrial fibrillation and rates are in the 130-140 bpm range he experiences palpitations. He continues to take metoprolol 50 mg twice daily and Xarelto 20 mg daily, denies any bleeding issues with Xarelto. We discussed if he were to have another episode of atrial fibrillation that he could take another half dose of the metoprolol to see if his heart rate and symptoms improve. He is very interested in undergoing repeat catheter ablation for atrial fibrillation versus 3-4-day hospital admission for dofetilide loading. We discussed the procedure at length, he would like to proceed. He denies chest discomfort, palpitations, shortness of breath, lightheadedness, dizziness, near-syncope or syncope. Will inform Dr. Alexander regarding patient's desire to undergo repeat catheter ablation. Interim History Dr. Alexander 09/01/2022: Mr. Dunham presents for follow-up evaluation. He underwent redo atrial fibrillation catheter ablation 05/23/2022. He did have recurrence of atrial fibrillation in July, underwent electrical cardioversion at [facility] 07/24/2022. Since that time he states he has done well, not aware of recurrent arrhythmia. He denies chest pain, shortness of breath, orthopnea, palpitations, PND, lightheadedness or syncope. I have confirmed and edited as necessary, the PFSH and ROS obtained by others. PAST MEDICAL HISTORY Diagnosis Date Allergic rhinitis, cause unspecified Allergic rhinitis Anticoagulant long-term use rivaroxaban (Xarelto); indication: stroke prevention atrial fibrillation Asymptomatic varicose veins Varicose veins At risk for stroke [id number] = 4 (HTN, age2, CAD) Atherosclerosis of [place] coronary artery without angina pectoris Coronary artery disease MILD Dyspepsia and other specified disorders of function of stomach Dyspepsia Essential hypertension Hypothyroidism group home current use of antiarrhythmic drug amiodarone since about 01/2020; indication: Symptomatic atrial fibrillation Mixed hyperlipidemia Hyperlipidemia Other symptoms involving digestive system(787.99) PAC (premature atrial contraction) Palpitations Paroxysmal atrial fibrillation (HCC) evidently diagnosed many years ago, initially paroxysmal but more recently probably persistent; +symptomatic, particularly in the evening/nighttime despite medical therapy Persistent atrial fibrillation (HCC) symptomatic; initially paroxysmal then became persistent; refractory to antiarrhythmic drug therapy (amiodarone); s/p balloon catheter cryoablation atrial fibrillation ablation 04/28/2020 PVC (premature ventricular contraction) Right bundle branch block (RBBB) Status post catheter ablation of atrial fibrillation atrial fibrillation catheter ablation: balloon catheter cryoablation/PVAI 04/28/2020 PAST SURGICAL HISTORY Procedure Laterality Date AFIB ABLATION/PULM VEIN ISOLATION 04/28/2020 atrial fibrillation catheter ablation: balloon catheter cryoablation/PVAI; [facility] Dr. Alexander AFIB ABLATION/PULM VEIN ISOLATION 05/23/2022 redo atrial fibrillation catheter ablation/PVAI (RF/Carto/Stereotaxis); no inducible SVT/AT/Aflutter; multifocal RA and LA PACs with isoproterenol, nothing consistent; [facility] Dr. Alexander CARDIAC CATH 06/21/2016 nonobstructive CAD CARDIOVERSION, ELECTIVE, ELECTRICAL 07/01/2021 successful zoroastrianism of sinus rhythm from atrial fibrillation; [facility] Dr. Alexander CARDIOVERSION, ELECTIVE, ELECTRICAL 01/12/2022 CARDIOVERSION, ELECTIVE, ELECTRICAL 04/04/2022 CARDIOVERSION, ELECTIVE, ELECTRICAL 07/24/2022 [facility] CARDIOVERSION, ELECTRIC 10/18/2021 [place], [place] COLONOSCOPY FLX DX W/COLLJ SPEC WHEN PFRMD 09/07/2003 Colonoscopy COLONOSCOPY W/BIOPSY SINGLE/MULTIPLE 03/13/2011 ECHOCARDIOGRAM 07/15/2018 LVEF 60% ECHOCARDIOGRAM 08/03/2020 ECHOCARDIOGRAM 10/17/2021 [place], [place] HOLTER MONITOR 48 HOUR 01/2019 PAST SURGICAL HISTORY OF nodule removed from vocal cord STRESS ECHO 06/2016 SOCIAL HISTORY Social History Tobacco Use Smoking status: Former Packs/day: 2.00 Years: 25.00 Pack years: 50.00 Types: Cigarettes Quit date: 1985 Years since quittin.0 Smokeless tobacco: Never Vaping Use Vaping Use: Never used Substance Use Topics Alcohol use: Yes Comment: occassionally Drug use: Never FAMILY HISTORY Problem Relation Age of Onset Cancer Father lung Cancer Mother ?liver age 81 ALLERGIES: ALLERGIES No Known Allergies MEDICATIONS: losartan (COZAAR) 100 mg tablet Take 1 tablet by mouth once daily albuterol HFA (PROVENTIL HFA, VENTOLIN HFA) 90 mcg/actuation inhaler INHALE 1 PUFF BY MOUTH EVERY 4 HOURS NEEDED FOR COUGH cetirizine (ZYRTEC) 10 mg tablet Take 1 tablet by mouth once daily as needed for cold/allergy symptoms. hydroCHLOROthiazide (HYDRODIURIL, ESIDRIX) 25 mg tablet Take 1 tablet by mouth once daily. latanoprost (XALATAN) 0.005 % ophthalmic solution INSTILL 1 DROP INTO EACH EYE NIGHTLY levothyroxine (SYNTHROID) 50 mcg tablet TAKE 1 TABLET BY MOUTH ONCE DAILY ON AN EMPTY STOMACH FOR THYROID metoprolol tartrate, short acting, (LOPRESSOR) 50 mg tablet Take 1 tablet by mouth twice daily. rivaroxaban (XARELTO) 20 mg tablet Take 1 tablet by mouth once daily. rosuvastatin (CRESTOR) 5 mg tablet Take 1 tablet by mouth daily at bedtime. Tadalafil (CIALIS) 10 mg tablet Take 1 tablet by mouth once daily. tamsulosin (FLOMAX) 0.4 mg Take 1 capsule by mouth once daily. omeprazole (PRILOSEC) 20 mg capsule TAKE 1 CAPSULE BY MOUTH ONCE DAILY, 30 MINUTES BEFORE BREAKFAST montelukast (SINGULAIR) 10 mg tablet TAKE 1 TABLET BY MOUTH ONCE DAILY AT BEDTIME cyclobenzaprine (FLEXERIL) 5 mg tablet Take 1 tablet by mouth three times daily as needed for muscle spasm. Fluorouracil 5 % cream APPLY A THIN LAYER TO BOTH FOREARMS TWICE A DAY FOR 2 WEEKS, APPLY A THIN LAYER TO THE LEFT FOREARM WHERE CANCERS ARE LOCATED FOR AN ADDITIONAL TWICE A DAY FOR 2 WEEKS Ipratropium Nixon (ATROVENT) 21 mcg (0.03 %) nasal spray Use 1 [place] in the nose as needed. nitroglycerin sublingual (NITROQUICK) 0.4 mg SL tablet Dissolve 0.4 mg under the tongue every 5 minutes as needed for chest pain. aspirin, enteric coated (ASPIRIN, ENTERIC COATED) 81 mg EC tablet Take 81 mg by mouth once daily. Review of Systems Constitutional: Negative for chills, fever, malaise/fatigue and weight loss. Respiratory: Negative for cough, hemoptysis and shortness of breath. Cardiovascular: Negative for chest pain, palpitations, orthopnea, leg swelling and PND. Gastrointestinal: Negative for abdominal pain, blood in stool, melena, nausea and vomiting. Genitourinary: Negative for hematuria. Skin: Negative for rash. Neurological: Negative for dizziness and loss of consciousness. PHYSICAL EXAMINATION: BP 121/73 Pulse 63 Wt 244 lb (110.7kg) SpO2 95% Physical Exam Vitals reviewed. Constitutional: General: He is not in acute distress. Appearance: Normal appearance. HENT: Head: Normocephalic and atraumatic. Cardiovascular: Rate and Rhythm: Normal rate and regular rhythm. Heart sounds: Normal heart sounds, S1 normal and S2 normal. No murmur heard. No friction rub. Pulmonary: Effort: Pulmonary effort is normal. No respiratory distress. Breath sounds: Normal breath sounds. No wheezing, rhonchi or rales. Musculoskeletal: Cervical back: Neck supple. Right lower leg: No edema. Left lower leg: No edema. Skin: General: Skin is warm and dry. Neurological: General: No focal deficit present. Mental Status: He is alert and oriented to person, place, and time. Psychiatric: Mood and Affect: Mood normal. Behavior: Behavior normal. Thought Content: Thought content normal. CARDIOVASCULAR MEDICINE TESTING: Electrocardiogram: Sinus rhythm 63 bpm; PACs; normal NV interval 154 ms; right bundle branch block (QRS 136 ms); QTc 464 ms I have personally reviewed the Electrocardiogram. Echocardiogram 08/31/2022: CT scan chest 08/31/2022: I spent a total of 40 minutes on the date of the service which included preparing to see the patient, [id number] patient care, completing clinical documentation, obtaining and/or reviewing separately obtained history, performing a medically appropriate examination, counseling and educating the patient/family/caregiver, ordering medications, tests, or procedures, communicating with other HCPs (not separately reported), independently interpreting results (not separately reported), communicating results to the patient/family/caregiver, and care coordination (not separately reported). ASSESSMENT/PLAN: 1. Persistent atrial fibrillation (HCC) - ICD9: 427.31, ICD10: I48.19 (primary diagnosis) 2. Status post catheter ablation of atrial fibrillation - ICD9: V45.89, ICD10: Z98.890 Stable s/p catheter ablation in 2019, redo ablation 05/2022; recurrence post ablation s/p electrical cardioversion 07/2022 3. Palpitations - ICD9: 785.1, ICD10: R00.2 stable 4. PAC (premature atrial contraction) - ICD9: 427.61, ICD10: I49.1 stable 5. PVC (premature ventricular contraction) - ICD9: 427.69, ICD10: I49.3 stable 6. RBBB (right bundle branch block) - ICD9: 426.4, ICD10: I45.10 stable 7. At risk for stroke - ICD9: V15.89, ICD10: Z91.89 CHADS2-Vasc Score Breakdown 4 Total Score 2 Age >= 75 years old 1 History of hypertension 1 History of vascular disease 8. Anticoagulant long-term use - ICD9: V58.61, ICD10: Z79.01 Indication: stroke prevention atrial fibrillation. 9. Lesion of liver - ICD9: 573.8, ICD10: K76.9 CT scan chest post ablation performed yesterday 08/31/2022 revealed incidental finding of liver lesions probably cysts according to the radiologist report but there is recommendation to consider follow up with ultrasound --- will make Mr. Dunham and his PCP aware of this finding IMPRESSION: Mr. Dunham seems to be stable and doing well from a heart rhythm standpoint, after redo atrial fibrillation catheter ablation in May 2022. He did have one recurrence of persistent atrial fibrillation in July, underwent electrical cardioversion at [facility]. Since that time he has done well. He reports no bleeding problems with the oral anticoagulation therapy, he should remain on this therapy indefinitely. PLAN AND RECOMMENDATIONS: Continue with current plan of care from EP standpoint. Follow up with PCP about the incidental finding of hepatic lesions on the cardiac CT scan. I will make sure Dr. Noland (PCP) receives the report. Return in about 6 months (around 03/02/2023) for EP ASSOCIATE PROJECT MANAGER, EKG. Deloris Alexander MD 09/01/2022 Medical Decision Making: Problems: Moderate: 2+ stable chronic illnesses Data: Unique source(s) for external note(s) reviewed: 1 Unique test result(s) reviewed: 3+ Unique test(s) ordered: 1 Medical Decision Making Level: 4 - Moderate documented in this encounter [facility] 08-31-2022 Nurse Note 24 hour holter monitor taught and applied. Patient aware of return device to heart and vascular. documented in this encounter [facility] 08-11-2022 History of Present illness Narrative SUBJECTIVE: This is a 82 year old male that is here today for follow-up of medical conditions and evaluation of midthoracic back pain. He states that he underwent cardiac mapping and ablation to treat atrial fibrillation and was doing very well until 2 months after his procedure when he went back into atrial fibrillation. He went to [facility] emergency room where he was treated and cardioverted. He has a follow-up appointment with Dr. Ochoa at the end of this month. He has been otherwise healthy and doing well with the exception of some midthoracic back pain. This has been an ongoing problem over the years. He states that he gets tightness and soreness in the mid thoracic region between the shoulder blades. He has been using heat and taking Flexeril which does provide relief. 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 antiarrhythmic drug amiodarone since about 01/2020; indication: Symptomatic atrial fibrillation Mixed hyperlipidemia Hyperlipidemia Other symptoms involving digestive system(787.99) PAC (premature atrial contraction) Palpitations Paroxysmal atrial fibrillation (HCC) evidently diagnosed many years ago, initially paroxysmal but more recently probably persistent; +symptomatic, particularly in the evening/nighttime despite medical therapy Persistent atrial fibrillation (HCC) symptomatic; initially paroxysmal then became persistent; refractory to antiarrhythmic drug therapy (amiodarone); s/p balloon catheter cryoablation atrial fibrillation ablation 04/28/2020 PVC (premature ventricular contraction) Right bundle branch block (RBBB) Status post catheter ablation of atrial fibrillation atrial fibrillation catheter ablation: balloon catheter cryoablation/PVAI 04/28/2020 OBJECTIVE: Alert, pleasant, no acute distress. Heart is regular S1 is equal to S2. Lungs are clear. Referral pulses are intact. Structural examination of the upper thoracic spine shows accentuated kyphosis. Tenderness with palpation along the thoracic paraspinal musculature. Range of motion is restricted in extension and rotation. ASSESSMENT: Midthoracic back pain with somatic dysfunction thoracic region Atrial fibrillation-currently normal sinus rhythm Hypertension Hypothyroidism Hyperlipidemia PLAN: Reviewed current meds and refills on all regular medications Keep cardiology appointment as directed Osteopathic manipulation on mid thoracic spine using muscle energy and HVLA technique with good results Continue to use moist heat, Flexeril as needed eKnneth Noland DO AMB ROOMING INTAKE FLOWSHEET DATA Risk Screening Do you have concerns about personal safety or safety in the home?: No documented in this encounter [facility] 08-09-2022 Miscellaneous Notes Patient scheduled to see Dr. Les Noland this Sunday. Patient asking if Dr. Noland would refill all his prescriptions for 90 days with multiple refills. Patient uses pharmacy on file. Please advise and call patient. documented in this encounter [facility] 08-09-2022 Miscellaneous Notes Patient has been identified by name and date of : Yes Patient phones for refill(s): Requested Prescriptions Pending Prescriptions Disp Refills losartan (COZAAR) 100 mg tablet [Pharmacy Med Name: Losartan Potassium 100 MG Oral Tablet] 90 tablet 0 Sig: Take 1 tablet by mouth once daily Date of last office visit in primary care: 05/05/22 Last 2 Encounter Wt Readings: Date: Wt: 05/05/2022 108.4 kg (239 lb) 03/08/2022 112.4 kg (247 lb 12.8 oz) Previous labs/tests for medication: Blood Pressure: BUN (mg/dL) Date Value 05/24/2022 27 04/29/2020 23 Sodium (mmol/L) Date Value 05/24/2022 138 04/29/2020 137 Last 1 Encounter BP Readings: Date: BP: 05/23/2022 150/84 Thank you. Alysha Kessler LPN documented in this encounter [facility] 07-26-2022 Miscellaneous Notes Patient phones requesting refills as follows: Requested Prescriptions Pending Prescriptions Disp Refills hydroCHLOROthiazide (HYDRODIURIL, ESIDRIX) 25 mg tablet 90 tablet 0 Sig: Take 1 tablet by mouth once daily. Please review and advise. Justina Spann Ma documented in this encounter [facility] 07-24-2022 Miscellaneous Notes Pt calls to report his pulse is 128-130 now. It has not come down. He does not believe he is in a fib. He is going to go to er to be checked. Millie Montgomery LPN Pt calls to report elevated HR 115-125 bpm since 07/23/22 morning. Pt reports usual HR 50s bpm. Pt reports it does not feel like his past afib. He took an additional Lopressor 50mg yesterday afternoon. He took his usual lopressor 50mg BID. He reports no change in HR. Saira Carson RN documented in this encounter [facility] 07-10-2022 Miscellaneous Notes Patient phones requesting refills as follows: Requested Prescriptions Pending Prescriptions Disp Refills Tadalafil (CIALIS) 10 mg tablet [Pharmacy Med Name: Tadalafil 10 MG Oral Tablet] 30 tablet 0 Sig: Take 1 tablet by mouth once daily Please review and advise. Agueda Webster LPN documented in this encounter [facility] 07-10-2022 Miscellaneous Notes Patient phones requesting refills as follows: Requested Prescriptions Pending Prescriptions Disp Refills tamsulosin (FLOMAX) 0.4 mg [Pharmacy Med Name: Tamsulosin HCl 0.4 MG Oral Capsule] 90 capsule 0 Sig: Take 1 capsule by mouth once daily Please review and advise. Agueda Webster LPN documented in this encounter [facility] 06-20-2022 Miscellaneous Notes Patient phones requesting refills as follows: Requested Prescriptions Pending Prescriptions Disp Refills levothyroxine (SYNTHROID) 50 mcg tablet [Pharmacy Med Name: Levothyroxine Sodium 50 MCG Oral Tablet] 90 tablet 0 Sig: TAKE 1 TABLET BY MOUTH ONCE DAILY ON AN EMPTY STOMACH FOR THYROID rosuvastatin (CRESTOR) 5 mg tablet [Pharmacy Med Name: Rosuvastatin Calcium 5 MG Oral Tablet] 90 tablet 0 Sig: TAKE 1 TABLET BY MOUTH ONCE DAILY AT BEDTIME omeprazole (PRILOSEC) 20 mg capsule [Pharmacy Med Name: Omeprazole 20 MG Oral Capsule Delayed Release] 90 capsule 0 Sig: TAKE 1 CAPSULE BY MOUTH ONCE DAILY, 30 MINUTES BEFORE BREAKFAST [facility] 05/05/2022 No upcoming appointment scheduled. Please review and advise. Jo Ortiz LPN documented in this encounter [facility] 06-08-2022 Miscellaneous Notes Spoke with patient today and he indicated his right leg was 80 % better and he had no discomfort when ambulating on right leg today. Right foot remains pink, swelling and bruising improved. Patient stated he can flex and extend right ankle and foot and denies right calf pain. Patient indicated he will continue to watch bruising in leg which is improving daily. Patient voiced understanding. Melina Roberts RN Spoke with patient who was scheduled for ultrasound at [place] yesterday. [facility] called and cancelled had to have done at [facility]. Right foot pink and warm to touch. Patient indicated his right leg feels better. Would like to continue to watch and will call if there is any negative change in right leg swelling. Melina Roberts RN documented in this encounter [facility] 06-06-2022 Miscellaneous Notes Requested Prescriptions Pending Prescriptions Disp Refills montelukast (SINGULAIR) 10 mg tablet [Pharmacy Med Name: Montelukast Sodium 10 MG Oral Tablet] 90 tablet 0 Sig: TAKE 1 TABLET BY MOUTH ONCE DAILY AT BEDTIME Date of last office visit in primary care: 05/05/22 Future visit: none Last 2 Encounter Wt Readings: Date: Wt: 05/05/2022 108.4 kg (239 lb) 03/08/2022 112.4 kg (247 lb 12.8 oz) Previous labs/tests for medication: Blood Pressure: BUN (mg/dL) Date Value 05/24/2022 27 04/29/2020 23 Sodium (mmol/L) Date Value 05/24/2022 138 04/29/2020 137 Last 1 Encounter BP Readings: Date: BP: 05/23/2022 150/84 Liver Function: No results found for: ALT, AST Please advise. Thank you. Lorena Fu RN documented in this encounter [facility] 06-05-2022 Miscellaneous Notes Patient was examined for complaints of right lower extremity swelling and bruising. Patient noted to have moderate amount of ecchymosis on right inner thigh. Right lower extremity slightly more swollen than left. Right popliteal, posterior tibial, and dorsalis pedis pulses +2. Extremity warm to touch. Patient denies any numbness or tingling. Indicates he has not missed any doses of his Xarelto. Informed patient I am highly doubtful that he has any DVT process going on but to make sure I will order a bilateral lower extremity venous duplex. Patient lives around the [facility] and I informed him it would be acceptable for him to have this performed down there. Patient agreeable to plan. Evaristo George APRN.[email or web address] June 05, 2022 1:45 PM documented in this encounter [facility] 06-05-2022 Nurse Note Patient here complaining of right leg edema and pain, s/p ablation procedure x 13 days ago. Right and left groin closed, no drainage from either puncture site. Right leg edematous and tender to touch throughout inner thigh and right knee. Small amount of bruising noted throughout inner thigh and knee. Right foot pink and warm to touch with good pedal and right popliteal pulses. Spoke with Evaristo George APRN, will examine. Melina Roberts RN documented in this encounter [facility] 05-30-2022 Miscellaneous Notes Post PVAI orders pended for signature - office will call to schedule documented in this encounter [facility] 05-10-2022 Miscellaneous Notes Patient phones requesting refills as follows: Requested Prescriptions Pending Prescriptions Disp Refills Tadalafil (CIALIS) 10 mg tablet [Pharmacy Med Name: TADALAFIL 10MG TAB] 30 tablet 0 Sig: Take 1 tablet by mouth once daily KWABENA-05/05/22 Labs-10/18/21 NOV-none med filled 04/20/21 Please review and advise. Agueda Webster LPN documented in this encounter [facility] 05-05-2022 History of Present illness Narrative HISTORY: This is a 81 year old male that presents today with a complaint of cough present for last 1 month. CHARACTERISTICS: dry PRECIPITATING/AGGRIVATING FACTORS: talking, laughing ASSOCIATED SYMPTOMS: COVID positive 1 month ago. 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 antiarrhythmic drug amiodarone since about 01/2020; indication: Symptomatic atrial fibrillation Mixed hyperlipidemia Hyperlipidemia Other symptoms involving digestive system(787.99) PAC (premature atrial contraction) Palpitations Paroxysmal atrial fibrillation (HCC) evidently diagnosed many years ago, initially paroxysmal but more recently probably persistent; +symptomatic, particularly in the evening/nighttime despite medical therapy Persistent atrial fibrillation (HCC) symptomatic; initially paroxysmal then became persistent; refractory to antiarrhythmic drug therapy (amiodarone); s/p balloon catheter cryoablation atrial fibrillation ablation 04/28/2020 PVC (premature ventricular contraction) Right bundle branch block (RBBB) Status post catheter ablation of atrial fibrillation atrial fibrillation catheter ablation: balloon catheter cryoablation/PVAI 04/28/2020 [facility] Current Outpatient Medications on File Prior to Visit Medication Sig losartan (COZAAR) 100 mg tablet Take 1 tablet by mouth once daily hydroCHLOROthiazide (HYDRODIURIL, ESIDRIX) 25 mg tablet Take 1 tablet by mouth once daily metoprolol tartrate, short acting, (LOPRESSOR) 50 mg tablet Take 50 mg by mouth twice daily. tamsulosin (FLOMAX) 0.4 mg Take 1 capsule by mouth once daily. latanoprost (XALATAN) 0.005 % ophthalmic solution INSTILL 1 DROP INTO EACH EYE NIGHTLY rosuvastatin (CRESTOR) 5 mg tablet Take 1 tablet by mouth daily at bedtime. levothyroxine (LEVOXYL) 50 mcg tablet Take 1 tablet by mouth once daily. Take on empty stomach. For Thyroid montelukast (SINGULAIR) 10 mg tablet Take 1 tablet by mouth daily at bedtime. omeprazole (PRILOSEC) 20 mg capsule Take 1 capsule by mouth daily before breakfast. 1/2 hr before meal. cetirizine (ZYRTEC) 10 mg tablet Take 10 mg by mouth once daily as needed for Cold/Allergy Symptoms. rivaroxaban (XARELTO) 20 mg tablet Take 20 mg by mouth once daily. aspirin, enteric coated (ASPIRIN, ENTERIC COATED) 81 mg EC tablet Take 81 mg by mouth once daily. cyclobenzaprine (FLEXERIL) 5 mg tablet Take 1 tablet by mouth three times daily. Tadalafil (CIALIS) 10 mg tablet Take one(1) tablet daily. albuterol HFA (PROVENTIL HFA, VENTOLIN HFA) 90 mcg/actuation inhaler INHALE 1 PUFF BY MOUTH EVERY 4 HOURS NEEDED FOR COUGH nitroglycerin sublingual (NITROSTAT) 0.4 mg SL tablet Dissolve 0.4 mg under the tongue every 5 minutes as needed. No current facility-administered medications on file prior to visit. EXAM: NOSE: no erythema or exudate PHARYNX: normal, no erythema NECK: supple and no adenopathy CHEST: Normal chest wall exam NODES: no palpable cervical nodes LUNGS: clear to auscultation HEART: Heart sounds distant, No carotid bruits, and Negative findings: S1 normal, S2 normal IMPRESSION: post-covid cough PLAN: Patient education-persistent cough after COVID may last 4 to 6 weeks. No other symptoms currently. Requested Prescriptions Signed Prescriptions Disp Refills benzonatate (TESSALON PERLES) 100 mg capsule 30 capsule 0 Sig: Take 1 capsule by mouth three times daily as needed for cough. Kenneth Noland DO Patient advised to call office if symptoms worsen or fail to improve over next 2-3 days. Kenneth Noland DO AMB ROOMING INTAKE FLOWSHEET DATA Risk Screening Do you have concerns about personal safety or safety in the home?: No documented in this encounter [facility] 05-02-2022 Miscellaneous Notes Patient has been identified by name and date of : Yes Pharmacy phones for refill(s): Requested Prescriptions Pending Prescriptions Disp Refills losartan (COZAAR) 100 mg tablet [Pharmacy Med Name: Losartan Potassium 100 MG Oral Tablet] 90 tablet 0 Sig: Take 1 tablet by mouth once daily Date of last office visit in primary care: 03/29/22 Last 2 Encounter Wt Readings: Date: Wt: 02/22/2022 109.3 kg (241 lb) 11/11/2021 107.5 kg (237 lb) Previous labs/tests for medication: Blood Pressure: BUN (mg/dL) Date Value 07/01/2021 23 04/29/2020 23 Sodium (mmol/L) Date Value 07/01/2021 139 04/29/2020 137 Last 1 Encounter BP Readings: Date: BP: 02/22/2022 134/70 Thank you. Alysha Kessler LPN documented in this encounter [facility] 05-01-2022 Miscellaneous Notes Pt's name has been added to [facility] procedure board. Melina Roberts RN Patient is scheduled for a PVAI Ablation on 05/[address] Alexander. The hospital will call the day before between 2-5pm with your arrival time. Patient should not eat or drink after midnight the day before the procedure. Patient will need a city driver when released from the hospital. You will stay overnight for observation. Patient should continue to take medications as prescribed the morning of the procedure with just a sip of water unless otherwise instructed. Patient to have H&P done morning of procedure due to provider availability Spoke with patient and he verbalized understanding of all instructions Evita Avina documented in this encounter [facility] 04-25-2022 Miscellaneous Notes Patient has been identified by name and date of : Yes Pharmacy phones for refill(s): Requested Prescriptions Pending Prescriptions Disp Refills hydroCHLOROthiazide (HYDRODIURIL, ESIDRIX) 25 mg tablet [Pharmacy Med Name: hydroCHLOROthiazide 25 MG Oral Tablet] 90 tablet 0 Sig: Take 1 tablet by mouth once daily Date of last office visit in primary care: 03/29/22 Last 2 Encounter Wt Readings: Date: Wt: 02/22/2022 109.3 kg (241 lb) 11/11/2021 107.5 kg (237 lb) Previous labs/tests for medication: Blood Pressure: BUN (mg/dL) Date Value 07/01/2021 23 04/29/2020 23 Sodium (mmol/L) Date Value 07/01/2021 139 04/29/2020 137 Last 1 Encounter BP Readings: Date: BP: 02/22/2022 134/70 Please advise. Thank you. Alysha Kessler LPN documented in this encounter [facility] 03-29-2022 Instructions Kenneth Noland V, DO - 03/29/2022 3:13 PM EDT Thank you for choosing the [facility] for your acute care needs. [facility] treats minor infections, rashes and injuries. It is our mission for our patients to be healthy. A primary care relationship with the physician allows for continuity of care, counseling, and maintenance of preventive health care needs. Express [facility] does not replace the relationship or need for a primary care physician. For information about establishing with a primary care physician or booking an appointment, please call [phone] or speak with any Patient Manager Gallery. Hours: Sunday through Sunday 7:30 am to 7:00 pm. Sunday and Sunday: 8:00 am to 2:30 pm. documented in this encounter [facility] 03-29-2022 History of Present illness Narrative Musculoskeletal/Osteopathic Manipulation Note HPI. Clifton Dunham is a 81 year old male who presents with complaint of midthoracic back pain. Symptoms started about 2 weeks ago, coincide with onset of atrial fibrillation. He went to the emergency department at [facility] for evaluation. He was found to be in atrial fibrillation with rapid ventricular response. Rather than cardioversion it was decided to pursue rate control. He was started on medication for rate control and discharged home. He states that he is still in atrial fibrillation, has an appointment with his fourth hand on Sunday morning. He states that the pain in the mid back is still present. He does have pain with motion and when lying down. He had chiropractic treatment last week which was helpful. 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 antiarrhythmic drug amiodarone since about 01/2020; indication: Symptomatic atrial fibrillation Mixed hyperlipidemia Hyperlipidemia Other symptoms involving digestive system(787.99) PAC (premature atrial contraction) Palpitations Paroxysmal atrial fibrillation (HCC) evidently diagnosed many years ago, initially paroxysmal but more recently probably persistent; +symptomatic, particularly in the evening/nighttime despite medical therapy Persistent atrial fibrillation (HCC) symptomatic; initially paroxysmal then became persistent; refractory to antiarrhythmic drug therapy (amiodarone); s/p balloon catheter cryoablation atrial fibrillation ablation 04/28/2020 PVC (premature ventricular contraction) Right bundle branch block (RBBB) Status post catheter ablation of atrial fibrillation atrial fibrillation catheter ablation: balloon catheter cryoablation/PVAI 04/28/2020 PAST SURGICAL HISTORY Procedure Laterality Date AFIB ABLATION/PULM VEIN ISOLATION 04/28/2020 atrial fibrillation catheter ablation: balloon catheter cryoablation/PVAI; [facility] Dr. Alexander CARDIAC CATH 06/21/2016 nonobstructive CAD CARDIOVERSION, ELECTIVE, ELECTRICAL 07/01/2021 successful zoroastrianism of sinus rhythm from atrial fibrillation; [facility] Dr. Alexander CARDIOVERSION, ELECTIVE, ELECTRICAL 01/12/2022 CARDIOVERSION, ELECTRIC 10/18/2021 KimberlyJANNIE COLONOSCOPY FLX DX W/COLLJ SPEC WHEN PFRMD 09/07/2003 Colonoscopy COLONOSCOPY W/BIOPSY SINGLE/MULTIPLE 03/13/2011 ECHOCARDIOGRAM 07/15/2018 LVEF 60% ECHOCARDIOGRAM 08/03/2020 ECHOCARDIOGRAM 10/17/2021 [place], [place] HOLTER MONITOR 48 HOUR 01/2019 PAST SURGICAL HISTORY OF nodule removed from vocal cord STRESS ECHO 06/2016 Current Outpatient Medications on File Prior to Visit Medication Sig metoprolol tartrate, short acting, (LOPRESSOR) 50 mg tablet Take 50 mg by mouth twice daily. cyclobenzaprine (FLEXERIL) 5 mg tablet Take 1 tablet by mouth three times daily. tamsulosin (FLOMAX) 0.4 mg Take 1 capsule by mouth once daily. latanoprost (XALATAN) 0.005 % ophthalmic solution INSTILL 1 DROP INTO EACH EYE NIGHTLY hydroCHLOROthiazide (HYDRODIURIL, ESIDRIX) 25 mg tablet Take 1 tablet by mouth once daily. rosuvastatin (CRESTOR) 5 mg tablet Take 1 tablet by mouth daily at bedtime. Tadalafil (CIALIS) 10 mg tablet Take one(1) tablet daily. levothyroxine (LEVOXYL) 50 mcg tablet Take 1 tablet by mouth once daily. Take on empty stomach. For Thyroid losartan (COZAAR) 100 mg tablet Take 1 tablet by mouth once daily. montelukast (SINGULAIR) 10 mg tablet Take 1 tablet by mouth daily at bedtime. omeprazole (PRILOSEC) 20 mg capsule Take 1 capsule by mouth daily before breakfast. 1/2 hr before meal. albuterol HFA (PROVENTIL HFA, VENTOLIN HFA) 90 mcg/actuation inhaler INHALE 1 PUFF BY MOUTH EVERY 4 HOURS NEEDED FOR COUGH cetirizine (ZYRTEC) 10 mg tablet Take 10 mg by mouth once daily as needed for Cold/Allergy Symptoms. nitroglycerin sublingual (NITROSTAT) 0.4 mg SL tablet Dissolve 0.4 mg under the tongue every 5 minutes as needed. rivaroxaban (XARELTO) 20 mg tablet Take 20 mg by mouth once daily. aspirin, enteric coated (ASPIRIN, ENTERIC COATED) 81 mg EC tablet Take 81 mg by mouth once daily. No current facility-administered medications on file prior to visit. Physical Exam: There were no vitals taken for this visit. General: well appearing,in no acute distress,alert NEUROLOGICAL EXAM: Muscle strength extremeties: 5/5 x 4 Sensory exam extremeties: Normal. bilaterally STRUCTURAL EXAM: Posture: kyphosis mild and normal lumbar lordosis Gait: normal gait, Range of Motion Spine: extension limited, flexion limited, lateral rotation limited Structural examination of the thoracic spine shows tissue texture changes with ropiness along the thoracic paraspinal muscles more so on the right than the left between T4 and T8. He also has segmental motion restriction in that same region. Assessment/Plan Thoracic back pain Somatic dysfunction thoracic spine Atrial fibrillation Osteopathic manipulation performed on thoracic spine exam myofascial release and high velocity low amplitude technique with good results. Patient is instructed to keep his cardiology appointment on Sunday go to the ER if symptoms worsen. Patient's request for medication is as follows Signed Prescriptions Disp Refills cyclobenzaprine (FLEXERIL) 5 mg tablet 10 tablet 0 Sig: Take 1 tablet by mouth three times daily. NED: No Order entered - please phone pharmacy and notify patient. Kenneth Noland DO AMB ROOMING INTAKE FLOWSHEET DATA Risk Screening Do you have concerns about personal safety or safety in the home?: No Patient presents with: Back Pain: mid back Edna Watts LPN documented in this encounter [facility] 02-22-2022 Instructions Kimberly Prado APRN.[facility] - 02/22/2022 1:27 PM EDT Atrial Fibrillation What is atrial fibrillation? Atrial fibrillation (also called A-fib) is a fast or irregular heartbeat that starts in the upper chambers of the heart. The abnormal heartbeat affects the ability of the heart to pump blood to the rest of the body. What is the cause? An electrical signal in your heart starts each heartbeat, causing the heart muscle to squeeze (contract). Normally, this signal starts in the upper right chamber of the heart (the right atrium) at a place called the sinus node. The signal then follows normal pathways to the upper left atrium and to the lower chambers of the heart (the ventricles). When you have atrial fibrillation, electrical signals don t start in the normal place in the right atrium and don t travel normally. This can cause the upper chambers of the heart (atria) to beat very fast and not in a normal pattern. Common causes of heart rhythm problems are conditions that damage the heart, like coronary artery disease, heart attack, or heart failure. Problems with the heart valves are another common cause. The heart has 4 valves that open and close with each heartbeat to help blood flow in the right direction through the heart. Other causes of atrial fibrillation include: Health problems, such as a stroke, lung disease, diabetes, overactive thyroid gland, or high blood pressure Abuse of alcohol or drugs, such as cocaine Sometimes no cause can be found. What are the symptoms? Some people don t have any symptoms. When atrial fibrillation does cause symptoms, the most common ones are: Feeling like your heart is beating too fast or too hard or skipping beats or fluttering Feeling tired or weak all the time Symptoms that are more serious include: Chest pain Trouble breathing Lightheadedness or dizziness confusion How is it diagnosed? Your healthcare provider will ask about your symptoms and medical history and examine you. Tests may include: An ECG (also called an EKG), which measures and records your heartbeat. You may have an ECG while you are resting or while you exercise on a treadmill. You may also be asked to wear a small portable ECG monitor for a few days or sometimes a couple weeks. Blood tests An echocardiogram, which uses sound waves (ultrasound) to show the structures of the heart, like the valves How is it treated? The goal of treatment is to help the heart keep a normal rhythm. Your treatment depends on the cause of the atrial fibrillation, how often you have symptoms, and the severity of your symptoms. If you have no symptoms, or your symptoms are fairly mild, you may not need treatment. For some people atrial fibrillation lasts just a short time and the heart goes back to a normal rhythm on its own. If you keep having spells of atrial fibrillation, treatment may help keep you from having so many spells. If a health problem like a leaky heart valve is causing the atrial fibrillation, treating the health problem may also treat the fast or irregular heartbeat. Other possible treatments are: Medicine: Your provider may prescribe medicine to slow or restore a normal heart rate and rhythm. You may also need medicine to prevent blood clots because when the heart beats irregularly, some of the blood can stay in the upper chambers too long. This makes it easier for blood clots to form, increasing your risk of having a stroke or heart attack. Electrical cardioversion: First, you will be given medicine called anesthesia to keep you from feeling pain during the procedure. Then your chest will be given an electrical shock. The electrical shock should make your heart start beating normally again. You may need medicine to keep your heart rhythm normal after this procedure. Ablation: Ablation is a procedure that uses a small tube called a catheter to deliver energy to the inside of the heart. The energy (usually radio waves) scars small areas of heart tissue. The scars block abnormal electrical pathways and help you have a normal heart rhythm. With some types of ablation treatment, you will also need a pacemaker. A pacemaker is an electronic device put under the skin of your chest to help control the heartbeat. How can I take care of myself? Take your medicines as prescribed. Keep your appointments for follow-up blood tests. Make sure your healthcare provider knows about changes in your diet or medical condition. Your provider also needs to know about all prescription and nonprescription medicines, herbs, or supplements that you are taking. Some medicines may interact with your heart medicine or increase your risk for atrial fibrillation. If you want to drink alcohol, ask your provider how much is safe for you to drink. Follow your healthcare provider's instructions. Ask your provider: ?How and when you will hear your test results ?How long it will take to recover ?What activities you should avoid and when you can return to your normal activities ?How to take care of yourself at home ?What symptoms or problems you should watch for and what to do if you have them Make sure you know when you should come back for a checkup. How can I help prevent atrial fibrillation? The best prevention is to have a heart-healthy lifestyle. Keep a healthy weight. Eat a healthy diet that is low in sodium and saturated and trans fat. Stay fit with the right kind of exercise for you. Decrease stress. Don t smoke. Limit your use of alcohol. If you have heart disease or high blood pressure, follow your healthcare provider's instructions for treatment. Copyright 2014 [employer] and/or one of its subsidiaries. All rights reserved. documented in this encounter [facility] 02-22-2022 History of Present illness Narrative Images from the original note were not included. [facility] Cardiology Electrophysiology PRIMARY CARE PHYSICIAN: Kenneth Noland [address] [place] [address] CHIEF COMPLAINT: Cardiovascular medicine follow-up for arrhythmia. HISTORY OF PRESENT ILLNESS: History copied from previous notes, edited as needed: History copied forward from Dr. Alexander's note 03/08/20: Mr. Dunham is a 79 year old male who presents today for evaluation of atrial fibrillation, referral from his fourth hand Dr. Amaro. Mr. Dunham states that he has had atrial fibrillation for a very long time, possibly even 20 years ago. He states that in the past the arrhythmia would come and go but more recently has been more persistent, possibly for the past 5 months or so. He states that he was treated with atenolol for many years and then more recently carvedilol. Then about 2 months ago he was treated with amiodarone. He was found recently to have hypothyroidism and has been under treatment for that. He states that he does not notice the atrial fibrillation much during the day when he is active, but he is bothered by palpitations in the evenings and at night. Sometimes he cannot sleep and he has to get up. He believes that he feels better in sinus rhythm than he does in the atrial fibrillation. He denies chest pain, shortness of breath, orthopnea, PND, lightheadedness or syncope. Additional history with Jez Lewis APRN 08/10/20: Patient underwent EPS, PVI cryo catheter ablation of atrial fibrillation on 04/28/[address] Alexander. He transmitted heart rhythm weekly through TTM to the device clinic at [facility] and consistently showed sinus rhythm. 3 month post-ablation echocardiogram on 08/03/20 showed EF 66%, mild septal LVH, diastolic dysfunction stage II and no significant valvular pathology. 24-hour Holter monitor done 08/03/20 showed sinus rhythm with IVCD, no atrial fibrillation, 7 brief episodes SVT likely atrial tachycardia. Patient states he has been feeling fine since the ablation and today is the only day he had any discomfort. He states this morning he was mildly lightheaded when he got out of bed and felt off balance. This was unusual for him. He had mild discomfort on the left side of his chest which felt funny . No associated palpitations, diaphoresis, nausea or shortness of breath. He took his blood pressure 4 times and each time it was normal and 2 out of 4 times the machine said he had an irregular heartbeat. He states he's had occasional twinges on the right side of his chest for about 40 years. He denies any palpitations, shortness of breath, syncope or near-syncope. Additional History Dr. Alexander 11/19/2020: Mr. Dunham presents for follow-up evaluation. He underwent catheter ablation for atrial fibrillation in April 2020. He states that he has been doing reasonably well, not aware of having much or any recurrence of the arrhythmia. He states he fell about 6 weeks ago, hit his head and this required about a dozen stitches in his forehead. Fortunately he did not injure himself more severely. He denies chest pain, shortness of breath, orthopnea, palpitations, PND, lightheadedness or syncope. Additional History Florence Prado CNP 05/24/2021: The patient reports he continues to do well from a heart rhythm perspective. He does report a few months ago he was at the dentist and while getting a routine cleaning, he was laying relatively flat, states the hygienist was pretty rough on him, when he stood up to leave, he felt mildly dizzy, reports this lasted about 2 hours and resolved, has not had recurrence since then. He recently had a Camara's cyst left knee, states he received an injection with improvement. He denies chest discomfort, palpitations, shortness of breath, near-syncope or syncope. Interval History 09/20/2021 Florence Prado TIGHT COOPER: The patient called in a few days after his last appointment and reported being in atrial fibrillation, was confirmed by EKG, he underwent direct-current cardioversion with Dr. Alexander on 07/01/2021 with zoroastrianism of sinus rhythm. He reports he has felt well since the cardioversion procedure in June, has not had recurrence that he is aware of, continues to take carvedilol and Xarelto without any issues. He does try to exercise several times per week, including a combination of cardio and weight resistance exercises. We did have a snowstorm yesterday, the patient had to snow blow his driveway, and reports he was not limited in this activity by any symptoms. He denies chest discomfort, palpitations, shortness of breath, lightheadedness, dizziness, near-syncope or syncope. Additional history Dr. Alexander 11/11/2021 : Mr. Dunham presents for follow-up evaluation. He states that he was doing well until just recently in October 2021 when he developed recurrent symptomatic arrhythmia. He states he was in [place] vacationing and visiting family. He states that he experienced palpitations and tachycardia and shortness of breath. He knew that he was back in atrial fibrillation. He thinks that maybe he overdid it with his travels and diet. He states he probably ate too much although otherwise he cannot think of any particular triggers. He was not drinking alcohol heavily for example. He does not think that he was necessarily dehydrated and he was not experiencing any other illnesses at the time. He has not been experiencing exertional symptoms when he is in sinus rhythm, such as shortness of breath or chest pain. When the episode of arrhythmia occurred in [place] a few weeks ago, he was admitted to a [place] hospital, underwent treatment including an electrical cardioversion to restore sinus rhythm on 10/18/2021. Mr. Dunham states that the fourth hand in [place] mentioned possible treatment with an antiarrhythmic drug --- specifically mentioned Tikosyn --- but wanted to leave that to my discretion when Mr. Dunham returned to [place]. Presently, Mr. Dunham feels that he is back to his baseline, feels ok. Interval History: The patient had atrial fibrillation recurrence, presented to [facility] ED in January and was cardioverted on 01/12/2022 with zoroastrianism of sinus rhythm. He then followed up with TIA Kevin at his cardiology office who recommended he follow-up to further discuss antiarrhythmic drug therapy versus repeat catheter ablation. Mr. Dunham again presented to [facility] ED 01/30/2022 with highly symptomatic atrial fibrillation, underwent cardioversion with zoroastrianism of sinus rhythm. He reports heart rhythm has been stable since the most recent cardioversion, states when he is in atrial fibrillation and rates are in the 130-140 bpm range he experiences palpitations. He continues to take metoprolol 50 mg twice daily and Xarelto 20 mg daily, denies any bleeding issues with Xarelto. We discussed if he were to have another episode of atrial fibrillation that he could take another half dose of the metoprolol to see if his heart rate and symptoms improve. He is very interested in undergoing repeat catheter ablation for atrial fibrillation versus 3-4-day hospital admission for dofetilide loading. We discussed the procedure at length, he would like to proceed. He denies chest discomfort, palpitations, shortness of breath, lightheadedness, dizziness, near-syncope or syncope. Will inform Dr. Alexander regarding patient's desire to undergo repeat catheter ablation. PAST MEDICAL HISTORY Diagnosis Date Allergic rhinitis, cause unspecified Allergic rhinitis Anticoagulant long-term use rivaroxaban (Xarelto); indication: stroke prevention atrial fibrillation Asymptomatic varicose veins Varicose veins At risk for stroke [id number] = 4 (HTN, age2, CAD) Atherosclerosis of [place] coronary artery without angina pectoris Coronary artery disease MILD Dyspepsia and other specified disorders of function of stomach Dyspepsia Essential hypertension Hypothyroidism group home current use of antiarrhythmic drug amiodarone since about 01/2020; indication: Symptomatic atrial fibrillation Mixed hyperlipidemia Hyperlipidemia Other symptoms involving digestive system(787.99) PAC (premature atrial contraction) Palpitations Paroxysmal atrial fibrillation (HCC) evidently diagnosed many years ago, initially paroxysmal but more recently probably persistent; +symptomatic, particularly in the evening/nighttime despite medical therapy Persistent atrial fibrillation (HCC) symptomatic; initially paroxysmal then became persistent; refractory to antiarrhythmic drug therapy (amiodarone); s/p balloon catheter cryoablation atrial fibrillation ablation 04/28/2020 PVC (premature ventricular contraction) Right bundle branch block (RBBB) Status post catheter ablation of atrial fibrillation atrial fibrillation catheter ablation: balloon catheter cryoablation/PVAI 04/28/2020 PAST SURGICAL HISTORY Procedure Laterality Date AFIB ABLATION/PULM VEIN ISOLATION 04/28/2020 atrial fibrillation catheter ablation: balloon catheter cryoablation/PVAI; [facility] Dr. Alexander CARDIAC CATH 06/21/2016 nonobstructive CAD CARDIOVERSION, ELECTIVE, ELECTRICAL 07/01/2021 successful zoroastrianism of sinus rhythm from atrial fibrillation; [facility] Dr. Alexander CARDIOVERSION, ELECTIVE, ELECTRICAL 01/12/2022 CARDIOVERSION, ELECTRIC 10/18/2021 [place] COLONOSCOPY FLX DX W/COLLJ SPEC WHEN PFRMD 09/07/2003 Colonoscopy COLONOSCOPY W/BIOPSY SINGLE/MULTIPLE 03/13/2011 ECHOCARDIOGRAM 07/15/2018 LVEF 60% ECHOCARDIOGRAM 08/03/2020 ECHOCARDIOGRAM 10/17/2021 [place], [place] HOLTER MONITOR 48 HOUR 01/2019 PAST SURGICAL HISTORY OF nodule removed from vocal cord STRESS ECHO 06/2016 Social History Tobacco Use Smoking status: Former Smoker Packs/day: 2.00 Years: 25.00 Pack years: 50.00 Types: Cigarettes Quit date: 1984 Years since quittin.4 Smokeless tobacco: Never Used Vaping Use Vaping Use: Never used Substance Use Topics Alcohol use: Yes Comment: occassionally Drug use: Never Family History Problem Relation Age of Onset Cancer Father lung Cancer Mother ?liver age 81 ALLERGIES No Known Allergies MEDICATIONS: metoprolol tartrate, short acting, (LOPRESSOR) 50 mg tablet Take 50 mg by mouth twice daily. cyclobenzaprine (FLEXERIL) 5 mg tablet Take 1 tablet by mouth three times daily. tamsulosin (FLOMAX) 0.4 mg Take 1 capsule by mouth once daily. latanoprost (XALATAN) 0.005 % ophthalmic solution INSTILL 1 DROP INTO EACH EYE NIGHTLY hydroCHLOROthiazide (HYDRODIURIL, ESIDRIX) 25 mg tablet Take 1 tablet by mouth once daily. rosuvastatin (CRESTOR) 5 mg tablet Take 1 tablet by mouth daily at bedtime. Tadalafil (CIALIS) 10 mg tablet Take one(1) tablet daily. levothyroxine (LEVOXYL) 50 mcg tablet Take 1 tablet by mouth once daily. Take on empty stomach. For Thyroid losartan (COZAAR) 100 mg tablet Take 1 tablet by mouth once daily. montelukast (SINGULAIR) 10 mg tablet Take 1 tablet by mouth daily at bedtime. omeprazole (PRILOSEC) 20 mg capsule Take 1 capsule by mouth daily before breakfast. 1/2 hr before meal. albuterol HFA (PROVENTIL HFA, VENTOLIN HFA) 90 mcg/actuation inhaler INHALE 1 PUFF BY MOUTH EVERY 4 HOURS NEEDED FOR COUGH cetirizine (ZYRTEC) 10 mg tablet Take 10 mg by mouth once daily as needed for Cold/Allergy Symptoms. nitroglycerin sublingual (NITROSTAT) 0.4 mg SL tablet Dissolve 0.4 mg under the tongue every 5 minutes as needed. rivaroxaban (XARELTO) 20 mg tablet Take 20 mg by mouth once daily. aspirin, enteric coated (ASPIRIN, ENTERIC COATED) 81 mg EC tablet Take 81 mg by mouth once daily. REVIEW OF SYSTEMS: Review of Systems Constitutional: Negative for chills, diaphoresis and fever. HENT: Negative for nosebleeds. Respiratory: Negative for cough, hemoptysis, sputum production, shortness of breath and wheezing. Cardiovascular: Positive for palpitations (with AF). Negative for chest pain, orthopnea, leg swelling and PND (wears CPAP). Gastrointestinal: Negative for abdominal pain, blood in stool, constipation, diarrhea, heartburn (controlled with medication), nausea and vomiting. Genitourinary: Negative for dysuria, frequency, hematuria and urgency. Musculoskeletal: Negative for falls and myalgias. Neurological: Negative for dizziness, loss of consciousness and headaches. Endo/Heme/Allergies: Bruises/bleeds easily. PHYSICAL EXAMINATION: BP 134/70 Pulse 52 Ht 5' 10 (1.78m) Wt 241 lb (109.3kg) SpO2 96% BMI 34.58 kg/(m^2). Physical Exam Vitals and nursing note reviewed. Constitutional: General: He is not in acute distress. Appearance: He is not diaphoretic. HENT: Head: Normocephalic and atraumatic. Neck: Vascular: No carotid bruit or JVD. Cardiovascular: Rate and Rhythm: Regular rhythm. Bradycardia present. Pulses: Radial pulses are 2+ on the right side and 2+ on the left side. Posterior tibial pulses are 2+ on the right side and 2+ on the left side. Heart sounds: S1 normal and S2 normal. No murmur heard. No gallop. Pulmonary: Effort: Pulmonary effort is normal. No respiratory distress. Breath sounds: Normal breath sounds. No wheezing or rales. Chest: Chest wall: No tenderness. Abdominal: General: Bowel sounds are normal. Palpations: Abdomen is soft. Musculoskeletal: General: Normal range of motion. Cervical back: Neck supple. Right lower leg: Edema (trace) present. Left lower leg: Edema (trace) present. Skin: General: Skin is warm and dry. Nails: There is no clubbing. Neurological: Mental Status: He is alert and oriented to person, place, and time. Psychiatric: Mood and Affect: Mood and affect normal. Behavior: Behavior normal. CARDIOVASCULAR MEDICINE TESTING: Echocardiogram: 08/03/2020 CONCLUSIONS: - Technically difficult exam due to body habitus. - Exam indication: Sustained atrial fibrillation - The left ventricle is normal in size. There is mild upper septal left ventricular hypertrophy. Left ventricular systolic function is normal. EF = 66 5% (2D biplane) Grade II left ventricular diastolic dysfunction. - The right ventricle is normal in size. Right ventricular systolic function is normal. - No significant valve disease. - The patient has not had a prior CC echocardiographic exam for comparison. Echocardiogram: 10/17/2021 at [facility] in [facility] Complete echo was performed using color flow Doppler, spectral Doppler, M-mode and echo contrast. Lumason contrast was used during the study. Left ventricle cavity appears normal. There is mild asymmetric left ventricular hypertrophy. Left ventricular EF by visual approximation is 55-60%. Normal left ventricular systolic function. There is no aortic valve regurgitation or stenosis. There is mild mitral valve regurgitation. There is trace tricuspid valve regurgitation. There is no pericardial effusion. I have personally reviewed the Electrocardiogram: 02/22/2022 -Marked sinus bradycardia with sinus arrhythmia, RBBB, 49 bpm, NV 160 ms, QRS 138 ms, QT/QTc 502/453 ms. PLAN AND RECOMMENDATIONS: ASSESSMENT/PLAN: 1. Status post catheter ablation of atrial fibrillation - ICD9: V45.89, ICD10: Z98.890 (primary diagnosis) 2. Persistent atrial fibrillation (HCC) - ICD9: 427.31, ICD10: I48.19 - History of symptomatic, recurrent persistent atrial fibrillation; refractory to beta-racquel therapy (atenolol and carvedilol), refractory to antiarrhythmic drug therapy with amiodarone. Underwent cryoballoon catheter ablation for atrial fibrillation 04/28/[address] Alexander. Unfortunately, he has had several recurrences requiring multiple cardioversions, 07/01/2021, 10/18/2021, 01/12/2022 and most recent 01/30/2022. He was last seen by Dr. Alexander in November/2021, antiarrhythmic drug therapy versus repeat catheter ablation was discussed. Carvedilol has been switched to metoprolol 50 mg twice daily, we discussed if patient were to experience recurrent episode of atrial fibrillation with elevated heart rates he could take an additional half dose (25 mg) of metoprolol. He has strong desire to pursue repeat catheter ablation using different tools and technology, will inform Dr. Alexander, if indicated patient will be notified by scheduling shortly. He continue Xarelto 20 mg daily and will call in the meantime with any questions or concerns. 3. PAC (premature atrial contraction) - ICD9: 427.61, ICD10: I49.1 4. PVC (premature ventricular contraction) - ICD9: 427.69, ICD10: I49.3 5. Palpitations - ICD9: 785.1, ICD10: R00.2 -EKG today demonstrates sinus bradycardia, 49 beats per minutes, on metoprolol tartrate 50 mg twice daily, will continue. 6. RBBB (right bundle branch block) - ICD9: 426.4, ICD10: I45.10 -stable, continue to monitor. 7. Anticoagulant long-term use - ICD9: V58.61, ICD10: Z79.01 8. At risk for stroke - ICD9: V15.89, ICD10: Z91.89 -history of recurrent persistent atrial fibrillation, continue Xarelto 20 mg daily, no signs of bleeding. [id number] score of 4 (age 4, HTN, CAD). Total time in direct patient contact = 30 min. Greater than 50% of the time was spent in counseling and/or coordination of care. Return for To be arranged following ablation procedure. Kimberly Prado APRN.[employer] The above note was partially created using a dictation recognition software. A reasonable attempt has been made to correct any errors. documented in this encounter [facility] 02-22-2022 Nurse Note No cardiac complaints today. Millie Montgomery LPN documented in this encounter [facility] 02-02-2022 Miscellaneous Notes Noted, reviewed --- he will follow up with us as scheduled. Deloris Alexander MD February 02, 2022 5:02 PM Pt reports at November Dr Alexander requested he update our office with any changes. Pt went into afib (HR 140s bpm). He went to [facility] and was cardioverted in the ER. Pt reports he continues in a SR without complaints. Pt has OV 02/22/22 with Florence Prado. Saira Carson RN documented in this encounter [facility] 12-21-2021 Instructions Kenneth Noland V, DO - 12/21/2021 2:48 PM EDT Thank you for choosing the [facility] for your acute care needs. [facility] treats minor infections, rashes and injuries. It is our mission for our patients to be healthy. A primary care relationship with the physician allows for continuity of care, counseling, and maintenance of preventive health care needs. [facility] does not replace the relationship or need for a primary care physician. For information about establishing with a primary care physician or booking an appointment, please call [phone] or speak with any Patient Manager Gallery. Hours: Sunday through Sunday 7:30 am to 7:00 pm. Sunday and Sunday: 8:00 am to 2:30 pm. documented in this encounter [facility] 12-21-2021 History of Present illness Narrative SELF Mr. Dunham is a 81 year old male that presents today complaining of knee problems on the right side for the last 2 months. He claims that this pain appears to be related to walking [place] the beach during [place]. The pain is described as intermittent located in the front and in the back of the knee. Patient states that his pain level is a number 8 on a scale of 1-10 at worst. 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 amiodarone since about 01/2020; indication: Symptomatic atrial fibrillation Mixed hyperlipidemia Hyperlipidemia Other symptoms involving digestive system(787.99) PAC (premature atrial contraction) Palpitations Paroxysmal atrial fibrillation (HCC) evidently diagnosed many years ago, initially paroxysmal but more recently probably persistent; +symptomatic, particularly in the evening/nighttime despite medical therapy Persistent atrial fibrillation (HCC) symptomatic; initially paroxysmal then became persistent; refractory to antiarrhythmic drug therapy (amiodarone); s/p balloon catheter cryoablation atrial fibrillation ablation 04/28/2020 PVC (premature ventricular contraction) Right bundle branch block (RBBB) Status post catheter ablation of atrial fibrillation atrial fibrillation catheter ablation: balloon catheter cryoablation/PVAI 04/28/2020 PAST SURGICAL HISTORY Procedure Laterality Date AFIB ABLATION/PULM VEIN ISOLATION 04/28/2020 atrial fibrillation catheter ablation: balloon catheter cryoablation/PVAI; [facility] Dr. Alexander CARDIAC CATH 06/21/2016 nonobstructive CAD CARDIOVERSION, ELECTIVE, ELECTRICAL 07/01/2021 successful zoroastrianism of sinus rhythm from atrial fibrillation; [facility] Dr. Alexander CARDIOVERSION, ELECTRIC 10/18/2021 [place], [place] COLONOSCOPY FLX DX W/COLLJ SPEC WHEN PFRMD 09/07/2003 Colonoscopy COLONOSCOPY W/BIOPSY SINGLE/MULTIPLE 03/13/2011 ECHOCARDIOGRAM 07/15/2018 LVEF 60% ECHOCARDIOGRAM 08/03/2020 ECHOCARDIOGRAM 10/17/2021 [place], [place] HOLTER MONITOR 48 HOUR 01/2019 PAST SURGICAL HISTORY OF nodule removed from vocal cord STRESS ECHO 06/2016 . ALLERGIES: Patient has no known allergies. MEDICATIONS: Current Outpatient Medications Medication Sig tamsulosin (FLOMAX) 0.4 mg Take 1 capsule by mouth once daily. latanoprost (XALATAN) 0.005 % ophthalmic solution INSTILL 1 DROP INTO EACH EYE NIGHTLY hydroCHLOROthiazide (HYDRODIURIL, ESIDRIX) 25 mg tablet Take 1 tablet by mouth once daily. rosuvastatin (CRESTOR) 5 mg tablet Take 1 tablet by mouth daily at bedtime. Tadalafil (CIALIS) 10 mg tablet Take one(1) tablet daily. levothyroxine (LEVOXYL) 50 mcg tablet Take 1 tablet by mouth once daily. Take on empty stomach. For Thyroid losartan (COZAAR) 100 mg tablet Take 1 tablet by mouth once daily. montelukast (SINGULAIR) 10 mg tablet Take 1 tablet by mouth daily at bedtime. omeprazole (PRILOSEC) 20 mg capsule Take 1 capsule by mouth daily before breakfast. 1/2 hr before meal. cetirizine (ZYRTEC) 10 mg tablet Take 10 mg by mouth once daily as needed for Cold/Allergy Symptoms. rivaroxaban (XARELTO) 20 mg tablet Take 20 mg by mouth once daily. carvedilol (COREG) 25 mg tablet Take 25 mg by mouth twice daily with meals. aspirin, enteric coated (ASPIRIN, ENTERIC COATED) 81 mg EC tablet Take 81 mg by mouth once daily. cyclobenzaprine (FLEXERIL) 5 mg tablet Take 1 tablet by mouth three times daily. albuterol HFA (PROVENTIL HFA, VENTOLIN HFA) 90 mcg/actuation inhaler INHALE 1 PUFF BY MOUTH EVERY 4 HOURS NEEDED FOR COUGH nitroglycerin sublingual (NITROSTAT) 0.4 mg SL tablet Dissolve 0.4 mg under the tongue every 5 minutes as needed. No current facility-administered medications for this visit. FAMILY HISTORY: FAMILY HISTORY Problem Relation Age of Onset Cancer Father lung Cancer Mother ?liver age 81 SOCIAL HISTORY: Social History Tobacco Use Smoking status: Former Smoker Packs/day: 2.00 Years: 25.00 Pack years: 50.00 Types: Cigarettes Quit date: 1984 Years since quittin.3 Smokeless tobacco: Never Used Vaping Use Vaping Use: Never used Substance Use Topics Alcohol use: Yes Comment: occassionally Drug use: Never PHYSICAL ASSESSMENT: The Pt walks with a normal gait B/l LE have Nl Alignment The Right hip reveals a no hip flexion contracture, 0-100 degrees of flexion, Internal Rotation to 20 degrees in flexion and external rotation to 45 degrees in flexion. Abduction to 45 degrees and adduction to 20 degrees. Right Knee Reveals small Effusion. 0-135 degrees of motion. No Abnormal Anterior, Posterior, Varus or Valgus Laxity. Medial Joint Line Tenderness. No pain with Direct Palpation over the Distal Medial or Lateral Femoral Condyles. Tenderness with mild fullness in the popliteal fossa. no pain with Patellar compression. ASSESSMENT: Right knee pain with small effusion-symptomatic of Bakers cyst PLAN: Rest, ice, elevate, keep compression wrap on during the day. Joint/Soft Tissue Injection: Discussed risks/benefits with patient. Patient agrees to injection. Joint Site(s): right knee Antiseptic preparation: ChloraPrep Anesthesia (cutaneous): Yes Topical skin refrigerant spray (ethyl chloride) Medication Injected: Lidocaine 1% 4 cc bupivacaine 0.25% 4 cc and Celestone 6 mg No complications observed. Verbal instructions given. Patient left in satisfactory condition. Kenneth Noland DO AMB ROOMING INTAKE FLOWSHEET DATA Risk Screening Do you have concerns about personal safety or safety in the home?: No Pain Pain Level: 0 (as high as 8) Pain Location: Knee-Right Description: Other: See comment, Sharp (stinging) Duration Amount of Time: (ongoing) Frequency: Intermittent Intervention/Comfort measure: Other: See comment (compression) documented in this encounter [facility] documented as of this encounter (statuses as of 12/21/2021) [facility]2020 History of Past illness Narrative* Problem Noted Date Resolved Date Paroxysmal atrial fibrillation 0 04/28/2020 group home current use of antiarrhythmic drug 04/28/2020 Overview: amiodarone since about 01/2020; indication: Symptomatic atrial fibrillation 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 amiodarone 04/28/2020 Overview: Indication: Symptomatic atrial fibrillation documented as of this encounter (statuses as of 02/02/2022) [facility] History of Past illness Narrative* Problem Noted Date Resolved Date Paroxysmal atrial fibrillation 0 04/28/2020 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 antiarrhythmic drug 04/28/2020 Overview: amiodarone since about 01/2020; indication: Symptomatic atrial fibrillation group home current use of amiodarone 04/28/2020 Overview: Indication: Symptomatic atrial fibrillation documented as of this encounter (statuses as of 02/22/2022) [facility] History of Past illness Narrative* Problem Noted Date Resolved Date Paroxysmal atrial fibrillation 0 04/28/2020 group home current use of antiarrhythmic drug 04/28/2020 Overview: amiodarone since about 01/2020; indication: Symptomatic atrial fibrillation 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 04/28/2020 Overview: Indication: Symptomatic atrial fibrillation documented as of this encounter (statuses as of 03/29/2022) [facility] History of Past illness Narrative* Problem Noted Date Resolved Date Paroxysmal atrial fibrillation 0 04/28/2020 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 antiarrhythmic drug 04/28/2020 Overview: amiodarone since about 01/2020; indication: Symptomatic atrial fibrillation group home current use of amiodarone 04/28/2020 Overview: Indication: Symptomatic atrial fibrillation documented as of this encounter (statuses as of 04/25/2022) [facility] History of Past illness Narrative* Problem Noted Date Resolved Date Paroxysmal atrial fibrillation 0 04/28/2020 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 antiarrhythmic drug 04/28/2020 Overview: amiodarone since about 01/2020; indication: Symptomatic atrial fibrillation 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 amiodarone 04/28/2020 Overview: Indication: Symptomatic atrial fibrillation documented as of this encounter (statuses as of 05/01/2022) [facility] History of Past illness Narrative* Problem Noted Date Resolved Date Paroxysmal atrial fibrillation 0 04/28/2020 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 antiarrhythmic drug 04/28/2020 Overview: amiodarone since about 01/2020; indication: Symptomatic atrial fibrillation group home current use of amiodarone 04/28/2020 Overview: Indication: Symptomatic atrial fibrillation documented as of this encounter (statuses as of 05/02/2022) [address]26-2020 History of Past illness Narrative* Problem Noted Date Resolved Date Paroxysmal atrial fibrillation 0 04/28/2020 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 antiarrhythmic drug 04/28/2020 Overview: amiodarone since about 01/2020; indication: Symptomatic atrial fibrillation group home current use of amiodarone 04/28/2020 Overview: Indication: Symptomatic atrial fibrillation documented as of this encounter (statuses as of 05/05/2022) [facility] History of Past illness Narrative* Problem Noted Date Resolved Date Paroxysmal atrial fibrillation 0 04/28/2020 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 antiarrhythmic drug 04/28/2020 Overview: amiodarone since about 01/2020; indication: Symptomatic atrial fibrillation group home current use of amiodarone 04/28/2020 Overview: Indication: Symptomatic atrial fibrillation documented as of this encounter (statuses as of 05/10/2022) [facility] History of Past illness Narrative* Problem Noted Date Resolved Date Paroxysmal atrial fibrillation 0 04/28/2020 group home current use of antiarrhythmic drug 04/28/2020 Overview: amiodarone since about 01/2020; indication: Symptomatic atrial fibrillation 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 amiodarone 04/28/2020 Overview: Indication: Symptomatic atrial fibrillation documented as of this encounter (statuses as of 2022) [facility] History of Past illness Narrative* Problem Noted Date Resolved Date Paroxysmal atrial fibrillation 0 04/28/2020 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 antiarrhythmic drug 04/28/2020 Overview: amiodarone since about 01/2020; indication: Symptomatic atrial fibrillation 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 amiodarone 04/28/2020 Overview: Indication: Symptomatic atrial fibrillation documented as of this encounter (statuses as of 2022) [facility] History of Past illness Narrative* Problem Noted Date Resolved Date Paroxysmal atrial fibrillation 0 04/28/2020 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 antiarrhythmic drug 04/28/2020 Overview: amiodarone since about 01/2020; indication: Symptomatic atrial fibrillation 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 amiodarone 04/28/2020 Overview: Indication: Symptomatic atrial fibrillation documented as of this encounter (statuses as of 2022) [facility] History of Past illness Narrative* Problem Noted Date Resolved Date Paroxysmal atrial fibrillation 0 04/28/2020 group home current use of antiarrhythmic drug 04/28/2020 Overview: amiodarone since about 01/2020; indication: Symptomatic atrial fibrillation group home current use of amiodarone 04/28/2020 Overview: Indication: Symptomatic atrial fibrillation documented as of this encounter (statuses as of 06/05/2022) [facility] History of Past illness Narrative* Problem Noted Date Resolved Date Paroxysmal atrial fibrillation 0 04/28/2020 group home current use of antiarrhythmic drug 04/28/2020 Overview: amiodarone since about 01/2020; indication: Symptomatic atrial fibrillation 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 amiodarone 04/28/2020 Overview: Indication: Symptomatic atrial fibrillation documented as of this encounter (statuses as of 06/06/2022) [facility] History of Past illness Narrative* Problem Noted Date Resolved Date Paroxysmal atrial fibrillation 0 04/28/2020 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 antiarrhythmic drug 04/28/2020 Overview: amiodarone since about 01/2020; indication: Symptomatic atrial fibrillation 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 amiodarone 04/28/2020 Overview: Indication: Symptomatic atrial fibrillation documented as of this encounter (statuses as of 06/07/2022) [facility] History of Past illness Narrative* Problem Noted Date Resolved Date Paroxysmal atrial fibrillation 0 04/28/2020 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 antiarrhythmic drug 04/28/2020 Overview: amiodarone since about 01/2020; indication: Symptomatic atrial fibrillation group home current use of amiodarone 04/28/2020 Overview: Indication: Symptomatic atrial fibrillation documented as of this encounter (statuses as of 06/07/2022) [facility] History of Past illness Narrative* Problem Noted Date Resolved Date Paroxysmal atrial fibrillation 0 04/28/2020 group home current use of antiarrhythmic drug 04/28/2020 Overview: amiodarone since about 01/2020; indication: Symptomatic atrial fibrillation group home current use of amiodarone 04/28/2020 Overview: Indication: Symptomatic atrial fibrillation documented as of this encounter (statuses as of 06/08/2022) [facility] History of Past illness Narrative* Problem Noted Date Resolved Date Paroxysmal atrial fibrillation 0 04/28/2020 group home current use of antiarrhythmic drug 04/28/2020 Overview: amiodarone since about 01/2020; indication: Symptomatic atrial fibrillation group home current use of amiodarone 04/28/2020 Overview: Indication: Symptomatic atrial fibrillation documented as of this encounter (statuses as of 06/14/2022) [facility] History of Past illness Narrative* Problem Noted Date Resolved Date Paroxysmal atrial fibrillation 0 04/28/2020 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 antiarrhythmic drug 04/28/2020 Overview: amiodarone since about 01/2020; indication: Symptomatic atrial fibrillation 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 amiodarone 04/28/2020 Overview: Indication: Symptomatic atrial fibrillation documented as of this encounter (statuses as of 06/20/2022) [facility] History of Past illness Narrative* Problem Noted Date Resolved Date Paroxysmal atrial fibrillation 0 04/28/2020 group home current use of antiarrhythmic drug 04/28/2020 Overview: amiodarone since about 01/2020; indication: Symptomatic atrial fibrillation 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 amiodarone 04/28/2020 Overview: Indication: Symptomatic atrial fibrillation documented as of this encounter (statuses as of 06/20/2022) [facility] History of Past illness Narrative* Problem Noted Date Resolved Date Paroxysmal atrial fibrillation 0 04/28/2020 group home current use of antiarrhythmic drug 04/28/2020 Overview: amiodarone since about 01/2020; indication: Symptomatic atrial fibrillation group home current use of amiodarone 04/28/2020 Overview: Indication: Symptomatic atrial fibrillation documented as of this encounter (statuses as of 06/21/2022) [facility] History of Past illness Narrative* Problem Noted Date Resolved Date Paroxysmal atrial fibrillation 0 04/28/2020 group home current use of antiarrhythmic drug 04/28/2020 Overview: amiodarone since about 01/2020; indication: Symptomatic atrial fibrillation group home current use of amiodarone 04/28/2020 Overview: Indication: Symptomatic atrial fibrillation documented as of this encounter (statuses as of 06/21/2022) [facility] History of Past illness Narrative* Problem Noted Date Resolved Date Paroxysmal atrial fibrillation 0 04/28/2020 group home current use of antiarrhythmic drug 04/28/2020 Overview: amiodarone since about 01/2020; indication: Symptomatic atrial fibrillation 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 amiodarone 04/28/2020 Overview: Indication: Symptomatic atrial fibrillation documented as of this encounter (statuses as of 06/28/2022) [facility] History of Past illness Narrative* Problem Noted Date Resolved Date Paroxysmal atrial fibrillation 0 04/28/2020 group home current use of antiarrhythmic drug 04/28/2020 Overview: amiodarone since about 01/2020; indication: Symptomatic atrial fibrillation 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 amiodarone 04/28/2020 Overview: Indication: Symptomatic atrial fibrillation documented as of this encounter (statuses as of 07/10/2022) [facility] History of Past illness Narrative* Problem Noted Date Resolved Date Paroxysmal atrial fibrillation 0 04/28/2020 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 antiarrhythmic drug 04/28/2020 Overview: amiodarone since about 01/2020; indication: Symptomatic atrial fibrillation 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 amiodarone 04/28/2020 Overview: Indication: Symptomatic atrial fibrillation documented as of this encounter (statuses as of 07/12/2022) [facility] History of Past illness Narrative* Problem Noted Date Resolved Date Paroxysmal atrial fibrillation 0 04/28/2020 group home current use of antiarrhythmic drug 04/28/2020 Overview: amiodarone since about 01/2020; indication: Symptomatic atrial fibrillation 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 amiodarone 04/28/2020 Overview: Indication: Symptomatic atrial fibrillation documented as of this encounter (statuses as of 07/12/2022) [facility] History of Past illness Narrative* Problem Noted Date Resolved Date Paroxysmal atrial fibrillation 0 04/28/2020 group home current use of antiarrhythmic drug 04/28/2020 Overview: amiodarone since about 01/2020; indication: Symptomatic atrial fibrillation 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 amiodarone 04/28/2020 Overview: Indication: Symptomatic atrial fibrillation documented as of this encounter (statuses as of 07/19/2022) [facility] History of Past illness Narrative* Problem Noted Date Resolved Date Paroxysmal atrial fibrillation 0 04/28/2020 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 antiarrhythmic drug 04/28/2020 Overview: amiodarone since about 01/2020; indication: Symptomatic atrial fibrillation 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 amiodarone 04/28/2020 Overview: Indication: Symptomatic atrial fibrillation documented as of this encounter (statuses as of 07/19/2022) [facility] of Past illness Narrative* Problem Noted Date Resolved Date Paroxysmal atrial fibrillation 0 04/28/2020 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 antiarrhythmic drug 04/28/2020 Overview: amiodarone since about 01/2020; indication: Symptomatic atrial fibrillation 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 amiodarone 04/28/2020 Overview: Indication: Symptomatic atrial fibrillation documented as of this encounter (statuses as of 07/20/2022) [facility] [facility] of [facility] Problem Noted Date Resolved Date Paroxysmal atrial fibrillation 0 04/28/2020 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 antiarrhythmic drug 04/28/2020 Overview: [email or web address] since about 01/2020; indication: Symptomatic atrial fibrillation 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 amiodarone 04/28/2020 Overview: Indication: Symptomatic atrial fibrillation documented as of this encounter (statuses as of 07/21/2022) [facility] History of Past illness Narrative* Problem Noted Date Resolved Date Paroxysmal atrial fibrillation 0 04/28/2020 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 antiarrhythmic drug 04/28/2020 Overview: [email or web address] since about 01/2020; indication: Symptomatic atrial fibrillation 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 amiodarone 04/28/2020 Overview: Indication: Symptomatic atrial fibrillation documented as of this encounter (statuses as of 07/24/2022) [facility] History of Past illness Narrative* Problem Noted Date Resolved Date Paroxysmal atrial fibrillation 0 04/28/2020 group home current use of antiarrhythmic drug 04/28/2020 Overview: [email or web address] since about 01/2020; indication: Symptomatic atrial fibrillation group home current use of amiodarone 04/28/2020 Overview: Indication: Symptomatic atrial fibrillation documented as of this encounter (statuses as of 07/26/2022) [facility] History of Past illness Narrative* Problem Noted Date Resolved Date Paroxysmal atrial fibrillation 0 04/28/2020 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 antiarrhythmic drug 04/28/2020 Overview: [email or web address] since about 01/2020; indication: Symptomatic atrial fibrillation 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 amiodarone 04/28/2020 Overview: Indication: Symptomatic atrial fibrillation documented as of this encounter (statuses as of 08/02/2022) [facility] History of Past illness Narrative* Problem Noted Date Resolved Date Paroxysmal atrial fibrillation 0 04/28/2020 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 antiarrhythmic drug 04/28/2020 Overview: [email or web address] since about 01/2020; indication: Symptomatic atrial fibrillation 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 amiodarone 04/28/2020 Overview: Indication: Symptomatic atrial fibrillation documented as of this encounter (statuses as of 08/02/2022) [facility] History of Past illness Narrative* Problem Noted Date Resolved Date Paroxysmal atrial fibrillation 0 04/28/2020 group home current use of antiarrhythmic drug 04/28/2020 Overview: [email or web address] since about 01/2020; indication: Symptomatic atrial fibrillation 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 amiodarone 04/28/2020 Overview: Indication: Symptomatic atrial fibrillation documented as of this encounter (statuses as of 08/09/2022) [facility]08[facility] History of Past illness Narrative* Problem Noted Date Resolved Date Paroxysmal atrial fibrillation 0 04/28/2020 group home current use of antiarrhythmic drug 04/28/2020 Overview: [email or web address] since about 01/2020; indication: Symptomatic atrial fibrillation 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 amiodarone 04/28/2020 Overview: Indication: Symptomatic atrial fibrillation documented as of this encounter (statuses as of 08/09/2022) [facility] History of Past illness Narrative* Problem Noted Date Resolved Date Paroxysmal atrial fibrillation 0 04/28/2020 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 antiarrhythmic drug 04/28/2020 Overview: [email or web address] since about 01/2020; indication: Symptomatic atrial fibrillation 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 amiodarone 04/28/2020 Overview: Indication: Symptomatic atrial fibrillation documented as of this encounter (statuses as of 08/09/2022) [facility] History of Past illness Narrative* Problem Noted Date Resolved Date Paroxysmal atrial fibrillation 0 04/28/2020 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 antiarrhythmic drug 04/28/2020 Overview: [email or web address] since about 01/2020; indication: Symptomatic atrial fibrillation group home current use of amiodarone 04/28/2020 Overview: Indication: Symptomatic atrial fibrillation documented as of this encounter (statuses as of 08/09/2022) [facility] History of Past illness Narrative* Problem Noted Date Resolved Date Paroxysmal atrial fibrillation 0 04/28/2020 group home current use of antiarrhythmic drug 04/28/2020 Overview: [email or web address] since about 01/2020; indication: Symptomatic atrial fibrillation group home current use of amiodarone 04/28/2020 Overview: Indication: Symptomatic atrial fibrillation documented as of this encounter (statuses as of 08/11/2022) [facility] History of Past illness Narrative* Problem Noted Date Resolved Date Paroxysmal atrial fibrillation 0 04/28/2020 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 antiarrhythmic drug 04/28/2020 Overview: [email or web address] since about 01/2020; indication: Symptomatic atrial fibrillation group home current use of amiodarone 04/28/2020 Overview: Indication: Symptomatic atrial fibrillation documented as of this encounter (statuses as of 08/15/2022) [facility] History of Past illness Narrative* Problem Noted Date Resolved Date Paroxysmal atrial fibrillation 0 04/28/2020 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 antiarrhythmic drug 04/28/2020 Overview: [email or web address] since about 01/2020; indication: Symptomatic atrial fibrillation group home current use of amiodarone 04/28/2020 Overview: Indication: Symptomatic atrial fibrillation documented as of this encounter (statuses as of 08/16/2022) [facility] History of Past illness Narrative* Problem Noted Date Resolved Date Paroxysmal atrial fibrillation 0 04/28/2020 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 antiarrhythmic drug 04/28/2020 Overview: [email or web address] since about 01/2020; indication: Symptomatic atrial fibrillation group home current use of amiodarone 04/28/2020 Overview: Indication: Symptomatic atrial fibrillation documented as of this encounter (statuses as of 08/23/2022) [facility] History of Past illness Narrative* Problem Noted Date Resolved Date Paroxysmal atrial fibrillation 0 04/28/2020 group home current use of antiarrhythmic drug 04/28/2020 Overview: [email or web address] since about 01/2020; indication: Symptomatic atrial fibrillation 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 amiodarone 04/28/2020 Overview: Indication: Symptomatic atrial fibrillation documented as of this encounter (statuses as of 08/23/2022) [facility] History of Past illness Narrative* Problem Noted Date Resolved Date Paroxysmal atrial fibrillation 0 04/28/2020 group home current use of antiarrhythmic drug 04/28/2020 Overview: [email or web address] since about 01/2020; indication: Symptomatic atrial fibrillation 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 amiodarone 04/28/2020 Overview: Indication: Symptomatic atrial fibrillation documented as of this encounter (statuses as of 09/05/2022) [facility] History of Past illness Narrative* Problem Noted Date Resolved Date Paroxysmal atrial fibrillation 0 04/28/2020 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 antiarrhythmic drug 04/28/2020 Overview: [email or web address] since about 01/2020; indication: Symptomatic atrial fibrillation 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 amiodarone 04/28/2020 Overview: Indication: Symptomatic atrial fibrillation documented as of this encounter (statuses as of 09/06/2022) [facility]08[facility] History of Past illness Narrative* Problem Noted Date Resolved Date Paroxysmal atrial fibrillation 0 04/28/2020 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 antiarrhythmic drug 04/28/2020 Overview: [email or web address] since about 01/2020; indication: Symptomatic atrial fibrillation 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 amiodarone 04/28/2020 Overview: Indication: Symptomatic atrial fibrillation documented as of this encounter (statuses as of 09/06/2022) [facility]08[facility] History of Past illness Narrative* Problem Noted Date Resolved Date Paroxysmal atrial fibrillation 0 04/28/2020 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 antiarrhythmic drug 04/28/2020 Overview: [email or web address] since about 01/2020; indication: Symptomatic atrial fibrillation 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 amiodarone 04/28/2020 Overview: Indication: Symptomatic atrial fibrillation documented as of this encounter (statuses as of 09/07/2022) [facility] History of Past illness Narrative* Problem Noted Date Resolved Date Paroxysmal atrial fibrillation 0 04/28/2020 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 antiarrhythmic drug 04/28/2020 Overview: [email or web address] since about 01/2020; indication: Symptomatic atrial fibrillation 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 amiodarone 04/28/2020 Overview: Indication: Symptomatic atrial fibrillation documented as of this encounter (statuses as of 09/08/2022) [facility] History of Past illness Narrative* Problem Noted Date Resolved Date Paroxysmal atrial fibrillation 0 04/28/2020 group home current use of antiarrhythmic drug 04/28/2020 Overview: [email or web address] since about 01/2020; indication: Symptomatic atrial fibrillation group home current use of amiodarone 04/28/2020 Overview: Indication: Symptomatic atrial fibrillation documented as of this encounter (statuses as of 09/09/2022) [facility] History of Past illness Narrative* Problem Noted Date Resolved Date Paroxysmal atrial fibrillation 0 04/28/2020 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 antiarrhythmic drug 04/28/2020 Overview: [email or web address] since about 01/2020; indication: Symptomatic atrial fibrillation group home current use of amiodarone 04/28/2020 Overview: Indication: Symptomatic atrial fibrillation documented as of this encounter (statuses as of 09/09/2022) [facility] History of Past illness Narrative* Problem Noted Date Resolved Date Paroxysmal atrial fibrillation 0 04/28/2020 group home current use of antiarrhythmic drug 04/28/2020 Overview: [email or web address] since about 01/2020; indication: Symptomatic atrial fibrillation 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 amiodarone 04/28/2020 Overview: Indication: Symptomatic atrial fibrillation documented as of this encounter (statuses as of 09/11/2022) [facility] History of Past illness Narrative* Problem Noted Date Resolved Date Paroxysmal atrial fibrillation 0 04/28/2020 group home current use of antiarrhythmic drug 04/28/2020 Overview: [email or web address] since about 01/2020; indication: Symptomatic atrial fibrillation group home current use of amiodarone 04/28/2020 Overview: Indication: Symptomatic atrial fibrillation documented as of this encounter (statuses as of 09/27/2022) [facility] History of Past illness Narrative* Problem Noted Date Resolved Date Paroxysmal atrial fibrillation 0 04/28/2020 group home current use of antiarrhythmic drug 04/28/2020 Overview: [email or web address] since about 01/2020; indication: Symptomatic atrial fibrillation 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 amiodarone 04/28/2020 Overview: Indication: Symptomatic atrial fibrillation documented as of this encounter (statuses as of 10/11/2022) [facility] History of Past illness Narrative* Problem Noted Date Resolved Date Paroxysmal atrial fibrillation 0 04/28/2020 group home current use of antiarrhythmic drug 04/28/2020 Overview: [email or web address] since about 01/2020; indication: Symptomatic atrial fibrillation group home current use of amiodarone 04/28/2020 Overview: Indication: Symptomatic atrial fibrillation documented as of this encounter (statuses as of 10/25/2022) [facility] History of Past illness Narrative* Problem Noted Date Resolved Date Paroxysmal atrial fibrillation 0 04/28/2020 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 antiarrhythmic drug 04/28/2020 Overview: [email or web address] since about 01/2020; indication: Symptomatic atrial fibrillation 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 amiodarone 04/28/2020 Overview: Indication: Symptomatic atrial fibrillation documented as of this encounter (statuses as of 10/26/2022) [facility] History of Past illness Narrative* Problem Noted Date Resolved Date Paroxysmal atrial fibrillation 0 04/28/2020 group home current use of antiarrhythmic drug 04/28/2020 Overview: [email or web address] since about 01/2020; indication: Symptomatic atrial fibrillation 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 amiodarone 04/28/2020 Overview: Indication: Symptomatic atrial fibrillation documented as of this encounter (statuses as of 11/10/2022) [facility] History of Past illness Narrative* Problem Noted Date Resolved Date Paroxysmal atrial fibrillation 0 04/28/2020 group home current use of antiarrhythmic drug 04/28/2020 Overview: [email or web address] since about 01/2020; indication: Symptomatic atrial fibrillation group home current use of amiodarone 04/28/2020 Overview: Indication: Symptomatic atrial fibrillation documented as of this encounter (statuses as of 11/10/2022) [facility] History of Past illness Narrative* Problem Noted Date Resolved Date Paroxysmal atrial fibrillation 0 04/28/2020 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 antiarrhythmic drug 04/28/2020 Overview: [email or web address] since about 01/2020; indication: Symptomatic atrial fibrillation 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 amiodarone 04/28/2020 Overview: Indication: Symptomatic atrial fibrillation documented as of this encounter (statuses as of 11/13/2022) [facility] History of Past illness Narrative* Problem Noted Date Resolved Date Paroxysmal atrial fibrillation 0 04/28/2020 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 antiarrhythmic drug 04/28/2020 Overview: [email or web address] since about 01/2020; indication: Symptomatic atrial fibrillation group home current use of amiodarone 04/28/2020 Overview: Indication: Symptomatic atrial fibrillation documented as of this encounter (statuses as of 11/23/2022) [facility] History of Past illness Narrative* Problem Noted Date Resolved Date Paroxysmal atrial fibrillation 0 04/28/2020 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 antiarrhythmic drug 04/28/2020 Overview: [email or web address] since about 01/2020; indication: Symptomatic atrial fibrillation group home current use of amiodarone 04/28/2020 Overview: Indication: Symptomatic atrial fibrillation documented as of this encounter (statuses as of 11/25/2022) [facility] of Past illness Narrative* Problem Noted Date Resolved Date Paroxysmal atrial fibrillation 0 04/28/2020 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 antiarrhythmic drug 04/28/2020 Overview: [email or web address] since about 01/2020; indication: Symptomatic atrial fibrillation group home current use of amiodarone 04/28/2020 Overview: Indication: Symptomatic atrial fibrillation documented as of this encounter (statuses as of 12/29/2022) [facility] History of Past illness Narrative* Problem Noted Date Resolved Date Paroxysmal atrial fibrillation 0 04/28/2020 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 antiarrhythmic drug 04/28/2020 Overview: [email or web address] since about 01/2020; indication: Symptomatic atrial fibrillation group home current use of amiodarone 04/28/2020 Overview: Indication: Symptomatic atrial fibrillation documented as of this encounter (statuses as of 01/02/2023) [facility] History of Past illness Narrative* Problem Noted Date Resolved Date Paroxysmal atrial fibrillation 0 04/28/2020 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 antiarrhythmic drug 04/28/2020 Overview: [email or web address] since about 01/2020; indication: Symptomatic atrial fibrillation group home current use of amiodarone 04/28/2020 Overview: Indication: Symptomatic atrial fibrillation documented as of this encounter (statuses as of 01/08/2023) [facility] History of Past illness Narrative* Problem Noted Date Resolved Date Paroxysmal atrial fibrillation 0 04/28/2020 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 antiarrhythmic drug 04/28/2020 Overview: [email or web address] since about 01/2020; indication: Symptomatic atrial fibrillation group home current use of amiodarone 04/28/2020 Overview: Indication: Symptomatic atrial fibrillation documented as of this encounter (statuses as of 02/02/2023) [facility] History of Past illness Narrative* Problem Noted Date Resolved Date Paroxysmal atrial fibrillation 0 04/28/2020 group home current use of antiarrhythmic drug 04/28/2020 Overview: [email or web address] since about 01/2020; indication: Symptomatic atrial fibrillation 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 amiodarone 04/28/2020 Overview: Indication: Symptomatic atrial fibrillation documented as of this encounter (statuses as of 02/08/2023) [facility] History of Past illness Narrative* Problem Noted Date Resolved Date Paroxysmal atrial fibrillation 0 04/28/2020 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 antiarrhythmic drug 04/28/2020 Overview: [email or web address] since about 01/2020; indication: Symptomatic atrial fibrillation group home current use of amiodarone 04/28/2020 Overview: Indication: Symptomatic atrial fibrillation documented as of this encounter (statuses as of 02/15/2023) [facility] History of Past illness Narrative* Problem Noted Date Resolved Date Paroxysmal atrial fibrillation 0 04/28/2020 group home current use of antiarrhythmic drug 04/28/2020 Overview: [email or web address] since about 01/2020; indication: Symptomatic atrial fibrillation 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 amiodarone 04/28/2020 Overview: Indication: Symptomatic atrial fibrillation documented as of this encounter (statuses as of 02/27/2023) [facility] History of Past illness Narrative* Problem Noted Date Diagnosed Date Resolved Date Paroxysmal atrial fibrillation 04/28/2020 group home current use of antiarrhythmic drug 04/28/2020 Overview: [email or web address] since about 01/2020; indication: Symptomatic atrial fibrillation group home current use of amiodarone 04/28/2020 Overview: Indication: Symptomatic atrial fibrillation documented as of this encounter (statuses as of 03/17/2023) [facility] History of Past illness Narrative* Problem Noted Date Diagnosed Date Resolved Date Paroxysmal atrial fibrillation 04/28/2020 group home current use of antiarrhythmic drug 04/28/2020 Overview: [email or web address] since about 01/2020; indication: Symptomatic atrial fibrillation group home current use of amiodarone 04/28/2020 Overview: Indication: Symptomatic atrial fibrillation documented as of this encounter (statuses as of 03/20/2023) [facility] of Past illness Narrative* Problem Noted Date Diagnosed Date Resolved Date Paroxysmal atrial fibrillation 04/28/2020 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 antiarrhythmic drug 04/28/2020 Overview: [email or web address] since about 01/2020; indication: Symptomatic atrial fibrillation group home current use of amiodarone 04/28/2020 Overview: Indication: Symptomatic atrial fibrillation documented as of this encounter (statuses as of 04/19/2023) [facility] of Past illness Narrative* Problem Noted Date Diagnosed Date Resolved Date Paroxysmal atrial fibrillation 04/28/2020 group home current use of antiarrhythmic drug 04/28/2020 Overview: [email or web address] since about 01/2020; indication: Symptomatic atrial fibrillation group home current use of amiodarone 04/28/2020 Overview: Indication: Symptomatic atrial fibrillation documented as of this encounter (statuses as of 04/24/2023) [facility] of Past illness Narrative* Problem Noted Date Diagnosed Date Resolved Date Paroxysmal atrial fibrillation 04/28/2020 group home current use of antiarrhythmic drug 04/28/2020 Overview: [email or web address] since about 01/2020; indication: Symptomatic atrial fibrillation 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 amiodarone 04/28/2020 Overview: Indication: Symptomatic atrial fibrillation documented as of this encounter (statuses as of 04/26/2023) [facility] of Past illness Narrative* Problem Noted Date Diagnosed Date Resolved Date Paroxysmal atrial fibrillation 04/28/2020 group home current use of antiarrhythmic drug 04/28/2020 Overview: [email or web address] since about 01/2020; indication: Symptomatic atrial fibrillation group home current use of amiodarone 04/28/2020 Overview: Indication: Symptomatic atrial fibrillation documented as of this encounter (statuses as of 05/01/2023) [facility] of Past illness Narrative* Problem Noted Date Diagnosed Date Resolved Date Paroxysmal atrial fibrillation 04/28/2020 group home current use of antiarrhythmic drug 04/28/2020 Overview: [email or web address] since about 01/2020; indication: Symptomatic atrial fibrillation 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 amiodarone 04/28/2020 Overview: Indication: Symptomatic atrial fibrillation documented as of this encounter (statuses as of 05/11/2023) [facility] History of Past illness Narrative* Problem Noted Date Diagnosed Date Resolved Date Paroxysmal atrial fibrillation 04/28/2020 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 antiarrhythmic drug 04/28/2020 Overview: [email or web address] since about 01/2020; indication: Symptomatic atrial fibrillation group home current use of amiodarone 04/28/2020 Overview: Indication: Symptomatic atrial fibrillation documented as of this encounter (statuses as of 05/16/2023) [facility] History of Past illness Narrative* Problem Noted Date Diagnosed Date Resolved Date Paroxysmal atrial fibrillation 04/28/2020 group home current use of antiarrhythmic drug 04/28/2020 Overview: [email or web address] since about 01/2020; indication: Symptomatic atrial fibrillation group home current use of amiodarone 04/28/2020 Overview: Indication: Symptomatic atrial fibrillation documented as of this encounter (statuses as of 05/18/2023) [facility] History of Past illness Narrative* Problem Noted Date Diagnosed Date Resolved Date Paroxysmal atrial fibrillation 04/28/2020 group home current use of antiarrhythmic drug 04/28/2020 Overview: [email or web address] since about 01/2020; indication: Symptomatic atrial fibrillation group home current use of amiodarone 04/28/2020 Overview: Indication: Symptomatic atrial fibrillation documented as of this encounter (statuses as of 05/18/2023) [facility] History of Past illness Narrative* Problem Noted Date Diagnosed Date Resolved Date Paroxysmal atrial fibrillation 04/28/2020 group home current use of antiarrhythmic drug 04/28/2020 Overview: [email or web address] since about 01/2020; indication: Symptomatic atrial fibrillation group home current use of amiodarone 04/28/2020 Overview: Indication: Symptomatic atrial fibrillation documented as of this encounter (statuses as of 05/18/2023) [facility] of Past illness Narrative* Problem Noted Date Diagnosed Date Resolved Date Paroxysmal atrial fibrillation 04/28/2020 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 antiarrhythmic drug 04/28/2020 Overview: [email or web address] since about 01/2020; indication: Symptomatic atrial fibrillation 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 amiodarone 04/28/2020 Overview: Indication: Symptomatic atrial fibrillation documented as of this encounter (statuses as of 05/18/2023) [facility] History of Past illness Narrative* Problem Noted Date Diagnosed Date Resolved Date Paroxysmal atrial fibrillation 04/28/2020 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 antiarrhythmic drug 04/28/2020 Overview: amiodarone since about 01/2020; indication: Symptomatic atrial fibrillation group home current use of amiodarone 04/28/2020 Overview: Indication: Symptomatic atrial fibrillation documented as of this encounter (statuses as of 05/25/2023) [facility] History of Past illness Narrative* Problem Noted Date Diagnosed Date Resolved Date Paroxysmal atrial fibrillation 04/28/2020 group home current use of antiarrhythmic drug 04/28/2020 Overview: amiodarone since about 01/2020; indication: Symptomatic atrial fibrillation group home current use of amiodarone 04/28/2020 Overview: Indication: Symptomatic atrial fibrillation documented as of this encounter (statuses as of 05/29/2023) [facility] History of Past illness Narrative* Problem Noted Date Diagnosed Date Resolved Date Paroxysmal atrial fibrillation 04/28/2020 group home current use of antiarrhythmic drug 04/28/2020 Overview: amiodarone since about 01/2020; indication: Symptomatic atrial fibrillation 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 amiodarone 04/28/2020 Overview: Indication: Symptomatic atrial fibrillation documented as of this encounter (statuses as of 07/08/2023) [facility] History of Past illness Narrative* Problem Noted Date Diagnosed Date Resolved Date Paroxysmal atrial fibrillation 04/28/2020 group home current use of antiarrhythmic drug 04/28/2020 Overview: amiodarone since about 01/2020; indication: Symptomatic atrial fibrillation group home current use of amiodarone 04/28/2020 Overview: Indication: Symptomatic atrial fibrillation documented as of this encounter (statuses as of 07/17/2023) [facility] History of Past illness Narrative* Problem Noted Date Diagnosed Date Resolved Date Paroxysmal atrial fibrillation 04/28/2020 group home current use of antiarrhythmic drug 04/28/2020 Overview: amiodarone since about 01/2020; indication: Symptomatic atrial fibrillation group home current use of amiodarone 04/28/2020 Overview: Indication: Symptomatic atrial fibrillation documented as of this encounter (statuses as of 08/17/2023) [facility] History of Past illness Narrative* Problem Noted Date Diagnosed Date Resolved Date Paroxysmal atrial fibrillation 04/28/2020 group home current use of antiarrhythmic drug 04/28/2020 Overview: amiodarone since about 01/2020; indication: Symptomatic atrial fibrillation 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 amiodarone 04/28/2020 Overview: Indication: Symptomatic atrial fibrillation documented as of this encounter (statuses as of 08/17/2023) [facility] Diagnosis Effusion of right knee joint- Primary Effusion of lower leg joint Camara's cyst of knee, right [facility] this [facility] Diagnosis Status post catheter ablation of atrial fibrillation- Primary Persistent atrial fibrillation (HCC) Atrial fibrillation PAC (premature atrial contraction) Supraventricular premature beats PVC (premature ventricular contraction) Other premature beats Palpitations RBBB (right bundle branch block) Right bundle branch block Anticoagulant long-term use Long-term (current) use of anticoagulants At risk for stroke Other specified personal history presenting hazards to health [facility] Diagnosis Chronic midline thoracic back pain- Primary Somatic dysfunction of thoracic region Nonallopathic lesion of thoracic region, not elsewhere classified documented in this encounter [facility] note* Diagnosis Persistent atrial fibrillation (HCC)- Primary Atrial fibrillation Anticoagulant long-term use Long-term (current) use of anticoagulants Subacute cough- Primary Cough Palpitations Status post catheter ablation of atrial fibrillation Persistent atrial fibrillation (HCC) Atrial fibrillation Anticoagulant long-term use Long-term (current) use of anticoagulants [facility] Diagnosis Persistent atrial fibrillation (HCC)- Primary Atrial fibrillation Dyspnea, unspecified type documented in this encounter [facility] note* Diagnosis Atrial fibrillation, unspecified type (HCC)- Primary [facility] Diagnosis Persistent atrial fibrillation (HCC)- Primary Atrial fibrillation Status post catheter ablation of atrial fibrillation Current use of vermin exterminator anticoagulation Long-term (current) use of anticoagulants [facility] Diagnosis Visit for wound check- Primary Encounter for other specified aftercare [facility] this [facility] Diagnosis Atrial fibrillation, unspecified type (HCC)- Primary [facility] Diagnosis Atrial fibrillation, unspecified type (HCC)- Primary [facility]* Diagnosis Atrial fibrillation, unspecified type (HCC)- Primary [facility]* Diagnosis Chronic midline thoracic back pain- Primary Somatic dysfunction of thoracic region Nonallopathic lesion of thoracic region, not elsewhere classified Paroxysmal atrial fibrillation (HCC) Atrial fibrillation documented in this encounter [facility] note* Diagnosis Atrial fibrillation, unspecified type (HCC)- Primary documented in this encounter [facility] note* Diagnosis Persistent atrial fibrillation (HCC) Atrial fibrillation Dyspnea, unspecified type documented in this encounter [facility] note* Diagnosis Persistent atrial fibrillation (HCC) Atrial fibrillation Dyspnea, unspecified type [facility] Diagnosis Persistent atrial fibrillation (HCC)- Primary Atrial fibrillation Status post catheter ablation of atrial fibrillation Palpitations PAC (premature atrial contraction) Supraventricular premature beats PVC (premature ventricular contraction) Other premature beats RBBB (right bundle branch block) Right bundle branch block At risk for stroke Other specified personal history presenting hazards to health Anticoagulant long-term use Long-term (current) use of anticoagulants Lesion of liver Other specified disorders of liver [facility] this [facility] Diagnosis Abnormal finding on CT scan- Primary Other nonspecific (abnormal) findings on radiological and other examinations of body structure [facility] Diagnosis Persistent atrial fibrillation (HCC)- Primary Atrial fibrillation Status post catheter ablation of atrial fibrillation Essential hypertension Unspecified essential hypertension At risk for stroke Other specified personal history presenting hazards to health [facility] this [facility] Diagnosis Paroxysmal atrial fibrillation (HCC)- Primary Atrial fibrillation [facility] Diagnosis Palpitations- Primary RBBB (right bundle branch block) Right bundle branch block Status post catheter ablation of atrial fibrillation Persistent atrial fibrillation (HCC) Atrial fibrillation Typical atrial flutter (HCC) Atrial flutter Atypical atrial flutter (HCC) Atrial flutter [facility] this [facility] Diagnosis 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- Primary [facility] Diagnosis Dyspnea, unspecified type- Primary Persistent atrial fibrillation (HCC) Atrial fibrillation [facility] Diagnosis Paroxysmal atrial fibrillation (HCC)- Primary Atrial fibrillation [facility] Diagnosis Palpitations- Primary [facility] Diagnosis Skin infection- Primary Unspecified local infection of skin and subcutaneous tissue [facility] this [facility] Diagnosis Knee injury, initial encounter- Primary Staph skin infection Unspecified local infection of skin and subcutaneous tissue documented [facility] this [facility] Diagnosis Contusion of knee and lower leg, right, subsequent encounter- Primary Sprain of left shoulder, unspecified shoulder sprain type, subsequent encounter [facility] Diagnosis Persistent atrial fibrillation (HCC)- Primary Atrial fibrillation Status post catheter ablation of atrial fibrillation RBBB (right bundle branch block) Right bundle branch block PAC (premature atrial contraction) Supraventricular premature beats PVC (premature ventricular contraction) Other premature beats Current use of vermin exterminator anticoagulation Long-term (current) use of anticoagulants At risk for stroke Other specified personal history presenting hazards to health [facility] Diagnosis Dyspnea, unspecified type Persistent atrial fibrillation (HCC) Atrial fibrillation documented in this encounter [facility] note* Diagnosis Dyspnea, unspecified type Persistent atrial fibrillation (HCC) Atrial fibrillation documented in this encounter [facility] note* Diagnosis Dyspnea, unspecified type Persistent atrial fibrillation (HCC) Atrial fibrillation [facility]* Diagnosis Disorder of rotator cuff, right- Primary documented in this encounter [facility] note* Diagnosis Abnormal finding on CT scan Other nonspecific (abnormal) findings on radiological and other examinations of body structure documented in this encounter [facility] note* Diagnosis Atrial fibrillation, unspecified type (HCC)- Primary Persistent atrial fibrillation (HCC) Atrial fibrillation Persistent atrial fibrillation (HCC)- Primary Atrial fibrillation Status post catheter ablation of atrial fibrillation PVC (premature ventricular contraction) Other premature beats PAC (premature atrial contraction) Supraventricular premature beats Palpitations RBBB (right bundle branch block) Right bundle branch block 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 At risk for stroke Other specified personal history presenting hazards to health Anticoagulant long-term use Long-term (current) use of anticoagulants documented in this encounter [facility] for referral (narrative)* Outpatient Procedure (Routine) - Authorized Specialty Diagnoses / Procedures Referred By Ness bender [facility] Diagnoses Status post catheter ablation of atrial fibrillation Persistent atrial fibrillation (HCC) Current use of vermin exterminator anticoagulation Procedures US LEG VEIN DVT UNL VAS LAB DUP-SCAN XTR VEINS UNILATERAL/LIMITED STUDY Evaristo George APRN.CNP [address] [place] [address] [facility] [place] [address] [place] [id number] Referral ID Status Reason Start Date Expiration Date Visits Requested Visits Authorized [id number] Authorized Auto-Generat ed Referral 06/05/2022 06/05/2023 1 1 [facility] for referral (narrative)* Outpatient Procedure (Routine) - Closed Specialty Diagnoses / Procedures Referred By Contac t Referred To Contact [facility] [place] Diagnoses Persistent atrial fibrillation (HCC) Dyspnea, unspecified type Procedures ECHO ECHO TTHRC R-T 2D W/WOM-MODE COMPL SPEC&COLR Deloris Gonzalez MD [address] [place] [address] [facility] [address] [place] [address] Referral ID Status Reason Start Date Expiration Date V isits Requested Visits Authorized [id number] Closed Auto-Generate d Referral 08/22/2022 05/30/2023 1 1 [facility] for referral (narrative)* Diagnostic Procedure Only (Routine) - Authorized Specialty Diagnoses / Procedures [facility] Diagnoses Abnormal finding on CT scan Procedures US ABD RT UPPER QUADRANT US ABDOMINAL REAL TIME W/IMAGE LIMITED Kenneth Noland V, DO [address] [place] [address] [facility] Referral ID Status Reason Start Date Expiration Date Visits Requested Visits Authorized [id number] Authorized Auto-Generat ed Referral 09/06/2022 10/06/2023 1 1 [facility] for referral (narrative)* Outpatient Procedure (Routine) - Closed Specialty Diagnoses / Procedures Referred By Contac t Referred To Contact [facility] Diagnoses Dyspnea, unspecified type Persistent atrial fibrillation (HCC) Procedures ECHO ECHO TTHRC R-T 2D W/WOM-MODE COMPL SPEC&COLR Deloris Gonzalez MD [address] [place] [address] [facility] [address] [place] [address] Referral ID Status Reason Start Date Expiration Date V isits Requested Visits Authorized [id number] Closed Auto-Generate d Referral 05/10/2023 02/15/2024 1 1 [facility] for referral (narrative)* Diagnostic Procedure Only (Routine) - Closed Specialty Diagnoses / Procedures Referred By [place] Referred To Contact [facility] Diagnoses Abnormal finding on CT scan Procedures US ABD RT UPPER QUADRANT US ABDOMINAL REAL TIME W/IMAGE LIMITED Kenneth Noland V, DO [address] [place] [address] [place] [address] Referral ID Status Reason Start Date Expiration Date V isits Requested Visits Authorized [id number] Closed Auto-Generate d Referral 09/06/2022 10/06/2023 1 1 [facility] for visit Narrative* Outpatient Procedure (Routine) - Closed Specialty Diagnoses / Procedures [facility] To [facility] Diagnoses Persistent atrial fibrillation (HCC) Dyspnea, unspecified type Procedures ECHO ECHO TTHRC R-T 2D W/WOM-MODE COMPL SPEC&COLR D Deloris Alexander MD [address] [place] [address] [facility] [place] [address] [place] [address] Referral ID Status Reason Start Date Expiration Date V isits Requested Visits Authorized [id number] Closed Auto-Generate d Referral 08/22/2022 05/30/2023 1 1 [facility] for visit Narrative* Outpatient Procedure (Routine) - Closed Specialty Diagnoses / Procedures Referred By Contac t Referred To Contact [facility] Diagnoses Dyspnea, unspecified type Persistent atrial fibrillation (HCC) Procedures ECHO ECHO TTHRC R-T 2D W/WOM-MODE COMPL SPEC&COLR D Deloris Alexander MD [address] [place] [address] [facility] [place] [address] [place] [address] Referral ID Status Reason Start Date Expiration Date V isits Requested Visits Authorized [id number] Closed Auto-Generate d Referral 05/10/2023 02/15/2024 1 1 [facility] Summary Purpose Family History No Family History Records FoundNo Family History Records FoundNo Family History Records FoundNo Family History Records FoundNo Family History Records Found Advance Directives No Advanced Directives Records FoundDocuments on File Type Date Recorded 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 Given 12/21/2021 2:48 PM EDT 6 mg Inactive Administered Medications - up to 3 most recent administrations Medication Order MAR Action Action Date Dose Rate Site perflutren lipid microspheres 1.3 mL in NaCl (PF) 0.9% 10 mL injection (DEFINITY) INTRAVENOUS, DIRECTED NEEDED, 1 dose, Starting on Vangie 02/15/23 at 1021, Until Vangie 05/17/23 at 1258, Per Protocol - for use during ECHO procedure only, If no IV access, insert saline lock prior to administering contrast. Discontinue saline lock post exam. If patient has central line or IVAD, may access for administration according to line specific nursing protocol. Once exam is complete, flush line and de-access per line specific nursing protocol.Dilute 1.3 ml of Definity with 8.7 ml of preservative-free saline. Given 05/17/2023 12:58 PM EDT 1.3 mL IV Inactive Administered Medications - up to 3 most recent administrations Medication Order MAR Action Action Date Dose Rate Site betamethasone acetate-betamethasone sodium phosphate 6 mg injection (CELESTONE) 6 mg, Injection - FOR ORTHO USE ONLY, ONE TIME INJECTION, 1 dose, Starting on Sun05/25/23 at 1101, Until Sun05/25/23 at 1101 Given 05/25/2023 11:01 AM EDT 6 mg Shoulder, Right BUPivacaine (PF) 0.5 % (5 mg/mL) 2 mL injection 2 mL, Injection - FOR ORTHO USE ONLY, ONE TIME INJECTION, 1 dose, Starting on Sun05/25/23 at 1101, Until Sun05/25/23 at 1101 Given 05/25/2023 11:01 AM EDT 2 mL Shoulder, Right lidocaine (PF) 10 mg/mL (1 %) 2 mL injection (XYLOCAINE) 2 mL, Injection - FOR ORTHO USE ONLY, ONE TIME INJECTION, 1 dose, Starting on Sun05/25/23 at 1101, Until Sun05/25/23 at 1101 Given 05/25/2023 11:01 AM EDT 2 mL Shoulder, Right Reason for Referral Specialty Diagnoses / Procedures Referred By Contac t Referred To Contact CT IMAGING Diagnoses Persistent atrial fibrillation (HCC) Dyspnea, unspecified type Procedures CTA CHEST (NONGATED) W IVCON CT ANGIOGRAPHY CHEST W/CONTRAST/NONCONTRAST Deloris Alexander MD [address] [place] [phone] Ct Imaging Referral ID Status Reason Start Date Expiration Date Visits Requested Visits Authorized [id number] Pending Review Auto-Generat ed Referral 2 06/29/2023 1 1 Specialty Diagnoses / Procedures Referred By Contac t Referred [facility] Diagnoses Persistent atrial fibrillation (HCC) Dyspnea, unspecified type Procedures ECHO ECHO TTHRC R-T 2D W/WOM-MODE COMPL SPEC&COLR D Deloris Alexander MD [address] [place] [phone] [facility] [place] [address] [place] [address] Referral ID Status Reason Start Date Expiration Date Visits Requested Visits Authorized [id number] Pending Review Auto-Generat ed Referral 2 05/30/2023 1 1 Referral ID Status Reason Start Date Expiration Date V isits Requested Visits Authorized [id number] Closed Auto-Generate d Referral 08/22/2022 06/29/2023 1 1 Specialty Diagnoses / Procedures Referred By Contac t Referred To Contact Cardiology Diagnoses 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 Procedures CONSULT TO CARDIOLOGY OFFICE/OUTPATIENT [facility] MDM 60-74 MINUTES Deloris Alexander MD [address] [place] [address] [place] [address] Phone: [phone] Referral ID Status Reason Start Date Expiration Date Visits Requested Visits Authorized [id number] Pending Review PCP Requested Referral 02/07/2023 02/07/2024 1 1 Specialty Diagnoses / Procedures Referred By Contac t Referred To Contact CT IMAGING Diagnoses Dyspnea, unspecified type Persistent atrial fibrillation (HCC) Procedures CTA CHEST (NONGATED) W IVCON CT ANGIOGRAPHY CHEST W/CONTRAST/NONCONTRAST Deloris Alexander MD [address] [place] [phone] Fax: Ct Imaging Referral ID Status Reason Start Date Expiration Date Visits Requested Visits Authorized [id number] Authorized Auto-Generat ed Referral 05/10/2023 03/16/2024 1 1 Specialty Diagnoses / Procedures Referred By Contac t Referred [facility] Diagnoses Dyspnea, unspecified type Persistent atrial fibrillation (HCC) Procedures ECHO ECHO TTHRC R-T 2D W/WOM-MODE COMPL SPEC&COLR D Deloris Alexander MD [address] [address] [facility] [place] [facility] [address] [place] [address] Referral ID Status Reason Start Date Expiration Date Visits Requested Visits Authorized [id number] Authorized Auto-Generat ed Referral 05/10/2023 02/15/2024 1 1 Specialty Diagnoses / Procedures Referred By Contac t Referred To Contact Cardiology Diagnoses Paroxysmal atrial fibrillation (HCC) Procedures CONSULT TO CARDIOLOGY OFFICE/OUTPATIENT [facility] MDM 60-74 MINUTES Kenneth Noland V, DO [address] [place] [address] Referral ID Status Reason Start Date Expiration Date Visits Requested Visits Authorized [id number] Pending Review PCP Requested Referral 03/29/2023 02/27/2024 1 1 Specialty Diagnoses / Procedures Referred By Contac t Referred To Contact CT IMAGING Diagnoses Atrial fibrillation, unspecified type (HCC) Procedures CT PULMONARY VEIN W IVCON CT HEART CONTRAST EVAL CARDIAC STRUCTURE&MORPH Andrea Mosley MD [address] [place] [address] Ct Imaging [place] [address] Referral ID Status Reason Start Date Expiration Date Visits Requested Visits Authorized [id number] Authorized Auto-Generat ed Referral 3 09/15/2024 1 1 Specialty Diagnoses / Procedures Referred By Contac t Referred To [facility] [place] Diagnoses Atrial fibrillation, unspecified type (HCC) Procedures LUNG DIFFUSION CAPACITY (DLCO) DIFFUSING CAPACITY Andrea Mosley MD [address] [place], [place] [id number] [place] [address] Referral ID Status Reason Start Date Expiration Date Visits Requested Visits Authorized [id number] Pending Review Auto-Generat ed Referral 3 09/15/2024 1 1 Specialty Diagnoses / Procedures Referred By Contac t Referred To [facility] [place] Diagnoses Atrial fibrillation, unspecified type (HCC) Procedures SPIROMETRY BASELINE ONLY SPMTRY W/VC EXPIRATORY RAQUEL W/WO MXML VOL VNTJ Andrea Mosley MD [address] [place] [address] [place] [address] Referral ID Status Reason Start Date Expiration Date Visits Requested Visits Authorized [id number] Pending Review Auto-Generat ed Referral 3 09/15/2024 1 1 Specialty Diagnoses / Procedures Referred By Contac t Referred To [facility] [place] Diagnoses Atrial fibrillation, unspecified type (HCC) Procedures PVR ANK PRESS SB VAS LAB NON-INVAS PHYSIOLOGIC STD EXTREMITY ART 2 LEVEL Andrea Mosley MD [address] [place] [address] [place] [address] Referral ID Status Reason Start Date Expiration Date Visits Requested Visits Authorized [id number] Pending Review Auto-Generat ed Referral 3 08/16/2024 1 1 Specialty Diagnoses / Procedures Referred By Contac t Referred To [facility] [place] Diagnoses Atrial fibrillation, unspecified type (HCC) Procedures US CAROTID ARTERIES SB VAS LAB DUPLEX SCAN EXTRACRANIAL ART COMPL BI STUDY Andrea Mosley MD [address] [place] [address] [facility] [address] [address] Referral ID Status Reason Start Date Expiration Date Visits Requested Visits Authorized [id number] Pending Review Auto-Generat ed Referral 3 08/16/2024 1 1 Specialty Diagnoses / Procedures Referred By Contac t Referred To Contact MOLECULAR & FUNCTIONAL IMAGING Diagnoses Atrial fibrillation, unspecified type (HCC) Procedures NM CARDIAC PERF STRESS/PHARM MYOCARDIAL SPECT MULTIPLE STUDIES Andrea Mosley MD [address] [place] [address] [facility] [address] [place] [address] Referral ID Status Reason Start Date Expiration Date Visits Requested Visits Authorized [id number] Authorized Auto-Generat ed Referral 3 09/15/2024 1 1 Specialty Diagnoses / Procedures Referred By Contac t Referred To Contact [facility] [place] Diagnoses Atrial fibrillation, unspecified type (HCC) Procedures ECG COMPLETE ECG ROUTINE ECG W/LEAST 12 LDS W/I&R Andrea Mosley MD [address] [place] [address] [facility] [address] [address] Referral ID Status Reason Start Date Expiration Date Visits Requested Visits Authorized [id number] Pending Review Auto-Generat ed Referral 3 08/16/2024 1 1 Specialty Diagnoses / Procedures Referred By Contac t Referred To Contact Cardiac Surg Diagnoses Atrial fibrillation, unspecified type (HCC) Procedures CARDIOTHORACIC PREOP EVALUATION OFFICE/OUTPATIENT NEW HIGH MDM 60-74 MINUTES Andrea Mosley MD [address] [place] [address] Referral ID Status Reason Start Date Expiration Date Visits Requested Visits Authorized [id number] Pending Review PCP Requested Referral 3 08/16/2024 1 1 Additional Source Comments (unrecognized sect ion and content) No Status Records FoundNo Status Records FoundNo Status Records FoundNo Status Records FoundNo Status Records Found INFORMATION SOURCE (unrecogn ized section and content) DATE CREATED AUTHOR AUTHOR'S ORGANIZ ATION 07/06/2020 [facility] DATE CREATED AUTHOR AUTHOR'S ORGANIZ ATION 11/21/2020 [facility] DATE CREATED AUTHOR AUTHOR'S ORGANIZ ATION 08/19/2023 [facility] DATE CREATED AUTHOR AUTHOR'S ORGANIZ ATION 08/21/2023 [facility] Source Comments (unrecognize d section and content) In the event this informatio n is protected by the Federal Confidentiality of Alcohol and Drug Abuse Patient Records regulations: The Federal rules restrict any use of the information to criminally investigate or prosecute any alcohol or drug abuse patient.[facility] the event this information is protected by the Federal Confidentiality of Alcohol and Drug Abuse Patient Records regulations: The Federal rules restrict any use of the information to criminally investigate or prosecute any alcohol or drug abuse patient.[facility] CenterIn the event this information is protected by the Federal Confidentiality of Alcohol and Drug Abuse Patient Records regulations: The Federal rules restrict any use of the information to criminally investigate or prosecute any alcohol or drug abuse patient.[facility] CenterIn the event this information is protected by the Federal Confidentiality of Alcohol and Drug Abuse Patient Records regulations: The Federal rules restrict any use of the information to criminally investigate or prosecute any alcohol or drug abuse patient.[facility] CenterIn the event this information is protected by the Federal Confidentiality of Alcohol and Drug Abuse Patient Records regulations: The Federal rules restrict any use of the information to criminally investigate or prosecute any alcohol or drug abuse patient.[facility] CenterIn the event this information is protected by the Federal Confidentiality of Alcohol and Drug Abuse Patient Records regulations: The Federal rules restrict any use of the information to criminally investigate or prosecute any alcohol or drug abuse patient.[facility] CenterIn the event this information is protected by the Federal Confidentiality of Alcohol and Drug Abuse Patient Records regulations: The Federal rules restrict any use of the information to criminally investigate or prosecute any alcohol or drug abuse patient.[facility] CenterIn the event this information is protected by the Federal Confidentiality of Alcohol and Drug Abuse Patient Records regulations: The Federal rules restrict any use of the information to criminally investigate or prosecute any alcohol or drug abuse patient.[facility] CenterIn the event this information is protected by the Federal Confidentiality of Alcohol and Drug Abuse Patient Records regulations: The Federal rules restrict any use of the information to criminally investigate or prosecute any alcohol or drug abuse patient.[facility] CenterIn the event this information is protected by the Federal Confidentiality of Alcohol and Drug Abuse Patient Records regulations: The Federal rules restrict any use of the information to criminally investigate or prosecute any alcohol or drug abuse patient.[facility] CenterIn the event this information is protected by the Federal Confidentiality of Alcohol and Drug Abuse Patient Records regulations: The Federal rules restrict any use of the information to criminally investigate or prosecute any alcohol or drug abuse patient.[facility] CenterIn the event this information is protected by the Federal Confidentiality of Alcohol and Drug Abuse Patient Records regulations: The Federal rules restrict any use of the information to criminally investigate or prosecute any alcohol or drug abuse patient.[facility] CenterIn the event this information is protected by the Federal Confidentiality of Alcohol and Drug Abuse Patient Records regulations: The Federal rules restrict any use of the information to criminally investigate or prosecute any alcohol or drug abuse patient.[facility] CenterIn the event this information is protected by the Federal Confidentiality of Alcohol and Drug Abuse Patient Records regulations: The Federal rules restrict any use of the information to criminally investigate or prosecute any alcohol or drug abuse patient.[facility] CenterIn the event this information is protected by the Federal Confidentiality of Alcohol and Drug Abuse Patient Records regulations: The Federal rules restrict any use of the information to criminally investigate or prosecute any alcohol or drug abuse patient.[facility] CenterIn the event this information is protected by the Federal Confidentiality of Alcohol and Drug Abuse Patient Records regulations: The Federal rules restrict any use of the information to criminally investigate or prosecute any alcohol or drug abuse patient.[facility] CenterIn the event this information is protected by the Federal Confidentiality of Alcohol and Drug Abuse Patient Records regulations: The Federal rules restrict any use of the information to criminally investigate or prosecute any alcohol or drug abuse patient.[facility] CenterIn the event this information is protected by the Federal Confidentiality of Alcohol and Drug Abuse Patient Records regulations: The Federal rules restrict any use of the information to criminally investigate or prosecute any alcohol or drug abuse patient.[facility] CenterIn the event this information is protected by the Federal Confidentiality of Alcohol and Drug Abuse Patient Records regulations: The Federal rules restrict any use of the information to criminally investigate or prosecute any alcohol or drug abuse patient.[facility] CenterIn the event this information is protected by the Federal Confidentiality of Alcohol and Drug Abuse Patient Records regulations: The Federal rules restrict any use of the information to criminally investigate or prosecute any alcohol or drug abuse patient.[facility] CenterIn the event this information is protected by the Federal Confidentiality of Alcohol and Drug Abuse Patient Records regulations: The Federal rules restrict any use of the information to criminally investigate or prosecute any alcohol or drug abuse patient.[facility] CenterIn the event this information is protected by the Federal Confidentiality of Alcohol and Drug Abuse Patient Records regulations: The Federal rules restrict any use of the information to criminally investigate or prosecute any alcohol or drug abuse patient.[facility] CenterIn the event this information is protected by the Federal Confidentiality of Alcohol and Drug Abuse Patient Records regulations: The Federal rules restrict any use of the information to criminally investigate or prosecute any alcohol or drug abuse patient.[facility] CenterIn the event this information is protected by the Federal Confidentiality of Alcohol and Drug Abuse Patient Records regulations: The Federal rules restrict any use of the information to criminally investigate or prosecute any alcohol or drug abuse patient.[facility] CenterIn the event this information is protected by the Federal Confidentiality of Alcohol and Drug Abuse Patient Records regulations: The Federal rules restrict any use of the information to criminally investigate or prosecute any alcohol or drug abuse patient.[facility] CenterIn the event this information is protected by the Federal Confidentiality of Alcohol and Drug Abuse Patient Records regulations: The Federal rules restrict any use of the information to criminally investigate or prosecute any alcohol or drug abuse patient.[facility] CenterIn the event this information is protected by the Federal Confidentiality of Alcohol and Drug Abuse Patient Records regulations: The Federal rules restrict any use of the information to criminally investigate or prosecute any alcohol or drug abuse patient.[facility] CenterIn the event this information is protected by the Federal Confidentiality of Alcohol and Drug Abuse Patient Records regulations: The Federal rules restrict any use of the information to criminally investigate or prosecute any alcohol or drug abuse patient.[facility] CenterIn the event this information is protected by the Federal Confidentiality of Alcohol and Drug Abuse Patient Records regulations: The Federal rules restrict any use of the information to criminally investigate or prosecute any alcohol or drug abuse patient.[facility] CenterIn the event this information is protected by the Federal Confidentiality of Alcohol and Drug Abuse Patient Records regulations: The Federal rules restrict any use of the information to criminally investigate or prosecute any alcohol or drug abuse patient.[facility] CenterIn the event this information is protected by the Federal Confidentiality of Alcohol and Drug Abuse Patient Records regulations: The Federal rules restrict any use of the information to criminally investigate or prosecute any alcohol or drug abuse patient.[facility] CenterIn the event this information is protected by the Federal Confidentiality of Alcohol and Drug Abuse Patient Records regulations: The Federal rules restrict any use of the information to criminally investigate or prosecute any alcohol or drug abuse patient.[facility] CenterIn the event this information is protected by the Federal Confidentiality of Alcohol and Drug Abuse Patient Records regulations: The Federal rules restrict any use of the information to criminally investigate or prosecute any alcohol or drug abuse patient.[facility] CenterIn the event this information is protected by the Federal Confidentiality of Alcohol and Drug Abuse Patient Records regulations: The Federal rules restrict any use of the information to criminally investigate or prosecute any alcohol or drug abuse patient.[facility] CenterIn the event this information is protected by the Federal Confidentiality of Alcohol and Drug Abuse Patient Records regulations: The Federal rules restrict any use of the information to criminally investigate or prosecute any alcohol or drug abuse patient.[facility] CenterIn the event this information is protected by the Federal Confidentiality of Alcohol and Drug Abuse Patient Records regulations: The Federal rules restrict any use of the information to criminally investigate or prosecute any alcohol or drug abuse patient.[facility] CenterIn the event this information is protected by the Federal Confidentiality of Alcohol and Drug Abuse Patient Records regulations: The Federal rules restrict any use of the information to criminally investigate or prosecute any alcohol or drug abuse patient.[facility] CenterIn the event this information is protected by the Federal Confidentiality of Alcohol and Drug Abuse Patient Records regulations: The Federal rules restrict any use of the information to criminally investigate or prosecute any alcohol or drug abuse patient.[facility] CenterIn the event this information is protected by the Federal Confidentiality of Alcohol and Drug Abuse Patient Records regulations: The Federal rules restrict any use of the information to criminally investigate or prosecute any alcohol or drug abuse patient.[facility] CenterIn the event this information is protected by the Federal Confidentiality of Alcohol and Drug Abuse Patient Records regulations: The Federal rules restrict any use of the information to criminally investigate or prosecute any alcohol or drug abuse patient.[facility] CenterIn the event this information is protected by the Federal Confidentiality of Alcohol and Drug Abuse Patient Records regulations: The Federal rules restrict any use of the information to criminally investigate or prosecute any alcohol or drug abuse patient.[facility] CenterIn the event this information is protected by the Federal Confidentiality of Alcohol and Drug Abuse Patient Records regulations: The Federal rules restrict any use of the information to criminally investigate or prosecute any alcohol or drug abuse patient.[facility] CenterIn the event this information is protected by the Federal Confidentiality of Alcohol and Drug Abuse Patient Records regulations: The Federal rules restrict any use of the information to criminally investigate or prosecute any alcohol or drug abuse patient.[facility] CenterIn the event this information is protected by the Federal Confidentiality of Alcohol and Drug Abuse Patient Records regulations: The Federal rules restrict any use of the information to criminally investigate or prosecute any alcohol or drug abuse patient.[facility] CenterIn the event this information is protected by the Federal Confidentiality of Alcohol and Drug Abuse Patient Records regulations: The Federal rules restrict any use of the information to criminally investigate or prosecute any alcohol or drug abuse patient.[facility] CenterIn the event this information is protected by the Federal Confidentiality of Alcohol and Drug Abuse Patient Records regulations: The Federal rules restrict any use of the information to criminally investigate or prosecute any alcohol or drug abuse patient.[facility] CenterIn the event this information is protected by the Federal Confidentiality of Alcohol and Drug Abuse Patient Records regulations: The Federal rules restrict any use of the information to criminally investigate or prosecute any alcohol or drug abuse patient.[facility] CenterIn the event this information is protected by the Federal Confidentiality of Alcohol and Drug Abuse Patient Records regulations: The Federal rules restrict any use of the information to criminally investigate or prosecute any alcohol or drug abuse patient.[facility] CenterIn the event this information is protected by the Federal Confidentiality of Alcohol and Drug Abuse Patient Records regulations: The Federal rules restrict any use of the information to criminally investigate or prosecute any alcohol or drug abuse patient.[facility] CenterIn the event this information is protected by the Federal Confidentiality of Alcohol and Drug Abuse Patient Records regulations: The Federal rules restrict any use of the information to criminally investigate or prosecute any alcohol or drug abuse patient.[facility] CenterIn the event this information is protected by the Federal Confidentiality of Alcohol and Drug Abuse Patient Records regulations: The Federal rules restrict any use of the information to criminally investigate or prosecute any alcohol or drug abuse patient.[facility] CenterIn the event this information is protected by the Federal Confidentiality of Alcohol and Drug Abuse Patient Records regulations: The Federal rules restrict any use of the information to criminally investigate or prosecute any alcohol or drug abuse patient.[facility] CenterIn the event this information is protected by the Federal Confidentiality of Alcohol and Drug Abuse Patient Records regulations: The Federal rules restrict any use of the information to criminally investigate or prosecute any alcohol or drug abuse patient.[facility] CenterIn the event this information is protected by the Federal Confidentiality of Alcohol and Drug Abuse Patient Records regulations: The Federal rules restrict any use of the information to criminally investigate or prosecute any alcohol or drug abuse patient.[facility] CenterIn the event this information is protected by the Federal Confidentiality of Alcohol and Drug Abuse Patient Records regulations: The Federal rules restrict any use of the information to criminally investigate or prosecute any alcohol or drug abuse patient.[facility] CenterIn the event this information is protected by the Federal Confidentiality of Alcohol and Drug Abuse Patient Records regulations: The Federal rules restrict any use of the information to criminally investigate or prosecute any alcohol or drug abuse patient.[facility] CenterIn the event this information is protected by the Federal Confidentiality of Alcohol and Drug Abuse Patient Records regulations: The Federal rules restrict any use of the information to criminally investigate or prosecute any alcohol or drug abuse patient.[facility] CenterIn the event this information is protected by the Federal Confidentiality of Alcohol and Drug Abuse Patient Records regulations: The Federal rules restrict any use of the information to criminally investigate or prosecute any alcohol or drug abuse patient.[facility] CenterIn the event this information is protected by the Federal Confidentiality of Alcohol and Drug Abuse Patient Records regulations: The Federal rules restrict any use of the information to criminally investigate or prosecute any alcohol or drug abuse patient.[facility] CenterIn the event this information is protected by the Federal Confidentiality of Alcohol and Drug Abuse Patient Records regulations: The Federal rules restrict any use of the information to criminally investigate or prosecute any alcohol or drug abuse patient.[facility] CenterIn the event this information is protected by the Federal Confidentiality of Alcohol and Drug Abuse Patient Records regulations: The Federal rules restrict any use of the information to criminally investigate or prosecute any alcohol or drug abuse patient.[facility] CenterIn the event this information is protected by the Federal Confidentiality of Alcohol and Drug Abuse Patient Records regulations: The Federal rules restrict any use of the information to criminally investigate or prosecute any alcohol or drug abuse patient.[facility] CenterIn the event this information is protected by the Federal Confidentiality of Alcohol and Drug Abuse Patient Records regulations: The Federal rules restrict any use of the information to criminally investigate or prosecute any alcohol or drug abuse patient.[facility] CenterIn the event this information is protected by the Federal Confidentiality of Alcohol and Drug Abuse Patient Records regulations: The Federal rules restrict any use of the information to criminally investigate or prosecute any alcohol or drug abuse patient.[facility] CenterIn the event this information is protected by the Federal Confidentiality of Alcohol and Drug Abuse Patient Records regulations: The Federal rules restrict any use of the information to criminally investigate or prosecute any alcohol or drug abuse patient.[facility] CenterIn the event this information is protected by the Federal Confidentiality of Alcohol and Drug Abuse Patient Records regulations: The Federal rules restrict any use of the information to criminally investigate or prosecute any alcohol or drug abuse patient.[facility] CenterIn the event this information is protected by the Federal Confidentiality of Alcohol and Drug Abuse Patient Records regulations: The Federal rules restrict any use of the information to criminally investigate or prosecute any alcohol or drug abuse patient.[facility] CenterIn the event this information is protected by the Federal Confidentiality of Alcohol and Drug Abuse Patient Records regulations: The Federal rules restrict any use of the information to criminally investigate or prosecute any alcohol or drug abuse patient.[facility] CenterIn the event this information is protected by the Federal Confidentiality of Alcohol and Drug Abuse Patient Records regulations: The Federal rules restrict any use of the information to criminally investigate or prosecute any alcohol or drug abuse patient.[facility] CenterIn the event this information is protected by the Federal Confidentiality of Alcohol and Drug Abuse Patient Records regulations: The Federal rules restrict any use of the information to criminally investigate or prosecute any alcohol or drug abuse patient.[facility] CenterIn the event this information is protected by the Federal Confidentiality of Alcohol and Drug Abuse Patient Records regulations: The Federal rules restrict any use of the information to criminally investigate or prosecute any alcohol or drug abuse patient.[facility] CenterIn the event this information is protected by the Federal Confidentiality of Alcohol and Drug Abuse Patient Records regulations: The Federal rules restrict any use of the information to criminally investigate or prosecute any alcohol or drug abuse patient.[facility] CenterIn the event this information is protected by the Federal Confidentiality of Alcohol and Drug Abuse Patient Records regulations: The Federal rules restrict any use of the information to criminally investigate or prosecute any alcohol or drug abuse patient.[facility] CenterIn the event this information is protected by the Federal Confidentiality of Alcohol and Drug Abuse Patient Records regulations: The Federal rules restrict any use of the information to criminally investigate or prosecute any alcohol or drug abuse patient.[facility] CenterIn the event this information is protected by the Federal Confidentiality of Alcohol and Drug Abuse Patient Records regulations: The Federal rules restrict any use of the information to criminally investigate or prosecute any alcohol or drug abuse patient.[facility] CenterIn the event this information is protected by the Federal Confidentiality of Alcohol and Drug Abuse Patient Records regulations: The Federal rules restrict any use of the information to criminally investigate or prosecute any alcohol or drug abuse patient.[facility] CenterIn the event this information is protected by the Federal Confidentiality of Alcohol and Drug Abuse Patient Records regulations: The Federal rules restrict any use of the information to criminally investigate or prosecute any alcohol or drug abuse patient.[facility] CenterIn the event this information is protected by the Federal Confidentiality of Alcohol and Drug Abuse Patient Records regulations: The Federal rules restrict any use of the information to criminally investigate or prosecute any alcohol or drug abuse patient.[facility] CenterIn the event this information is protected by the Federal Confidentiality of Alcohol and Drug Abuse Patient Records regulations: The Federal rules restrict any use of the information to criminally investigate or prosecute any alcohol or drug abuse patient.[facility] CenterIn the event this information is protected by the Federal Confidentiality of Alcohol and Drug Abuse Patient Records regulations: The Federal rules restrict any use of the information to criminally investigate or prosecute any alcohol or drug abuse patient.[facility] CenterIn the event this information is protected by the Federal Confidentiality of Alcohol and Drug Abuse Patient Records regulations: The Federal rules restrict any use of the information to criminally investigate or prosecute any alcohol or drug abuse patient.[facility] CenterIn the event this information is protected by the Federal Confidentiality of Alcohol and Drug Abuse Patient Records regulations: The Federal rules restrict any use of the information to criminally investigate or prosecute any alcohol or drug abuse patient.[facility] CenterIn the event this information is protected by the Federal Confidentiality of Alcohol and Drug Abuse Patient Records regulations: The Federal rules restrict any use of the information to criminally investigate or prosecute any alcohol or drug abuse patient.[facility] CenterIn the event this information is protected by the Federal Confidentiality of Alcohol and Drug Abuse Patient Records regulations: The Federal rules restrict any use of the information to criminally investigate or prosecute any alcohol or drug abuse patient.[facility] CenterIn the event this information is protected by the Federal Confidentiality of Alcohol and Drug Abuse Patient Records regulations: The Federal rules restrict any use of the information to criminally investigate or prosecute any alcohol or drug abuse patient.[facility] CenterIn the event this information is protected by the Federal Confidentiality of Alcohol and Drug Abuse Patient Records regulations: The Federal rules restrict any use of the information to criminally investigate or prosecute any alcohol or drug abuse patient.[facility] CenterIn the event this information is protected by the Federal Confidentiality of Alcohol and Drug Abuse Patient Records regulations: The Federal rules restrict any use of the information to criminally investigate or prosecute any alcohol or drug abuse patient.[facility] CenterIn the event this information is protected by the Federal Confidentiality of Alcohol and Drug Abuse Patient Records regulations: The Federal rules restrict any use of the information to criminally investigate or prosecute any alcohol or drug abuse patient.[facility] CenterIn the event this information is protected by the Federal Confidentiality of Alcohol and Drug Abuse Patient Records regulations: The Federal rules restrict any use of the information to criminally investigate or prosecute any alcohol or drug abuse patient.[facility] CenterIn the event this information is protected by the Federal Confidentiality of Alcohol and Drug Abuse Patient Records regulations: The Federal rules restrict any use of the information to criminally investigate or prosecute any alcohol or drug abuse patient.[facility] Reason for Visit (unrecogniz ed section and content) Reason Comments Patient Update Reason Comments CARD Follow Up 3 Month Reason Comments Back Pain mid back Reason Comments Refill Request Reason Comments Preparations For Procedures Reason Comments Follow Up Reason Comments Orders Reason Comments Remote Pacemaker Follow Up Reason Comments Orders Reason Comments Wound Check S/p wound check bila teral groins Reason Comments Arrhythmia Reason Comments Patient Question Reason Comments Hospital Follow Up Specialty Diagnoses / Procedures Referred By Contac t Referred To Contact CT IMAGING Diagnoses Persistent atrial fibrillation (HCC) Dyspnea, unspecified type Procedures CTA CHEST (NONGATED) W IVCON CT ANGIOGRAPHY CHEST W/CONTRAST/NONCONTRAST Deloris Alexander MD [address] [place] [address] Ct Imaging Referral ID Status Reason Start Date Expiration Date V isits Requested Visits Authorized [id number] Closed Auto-Generate d Referral 08/22/2022 06/29/2023 1 1 Reason Comments CARD Follow Up Annual Persistent a-fib Reason Onset Date Comments Refill Request 09/08/2022 Reason Comments Cardiology Follow Up PAF Reason Onset Date Comments Refill Request 10/23/2022 Reason Comments Patient Question Patient Update Reason Comments Treatment Planning Reason Onset Date Comments Refill Request 01/01/2023 Reason Onset Date Comments Referral Request 02/07/2023 Reason Comments EKG Palpitations,fatigue and sluggish/persistent a-fib Reason Comments fall Reason Comments 2 week 2 days post visit right knee inju ry Reason Comments CARD Follow Up 3 Month Palpitations Specialty Diagnoses / Procedures Referred By Contac t Referred To Contact CT IMAGING Diagnoses Dyspnea, unspecified type Persistent atrial fibrillation (HCC) Procedures CTA CHEST (NONGATED) W IVCON CT ANGIOGRAPHY CHEST W/CONTRAST/NONCONTRAST Deloris Alexander MD [address] [address] [place] [address] Referral ID Status Reason Start Date Expiration Date V isits Requested Visits Authorized [id number] Closed Auto-Generate d Referral 05/10/2023 03/16/2024 1 1 Reason Comments right shoulder Pain in right should er - here for an injection Reason Comments Radiology US Specialty Diagnoses / Procedures Referred By Contac t Referred To Contact US IMAGING Diagnoses Abnormal finding on CT scan Procedures US ABD RT UPPER QUADRANT US ABDOMINAL REAL TIME W/IMAGE LIMITED Kenneth Noland V, DO [address] [place] [address] [place] [address] Referral ID Status Reason Start Date Expiration Date V isits Requested Visits Authorized [id number] Closed Auto-Generate d Referral 09/06/2022 10/06/2023 1 1 Reason Comments Referral Information Scheduling evaluation Care Teams (unrecognized sec tion and content) Celebrity Manager Relationship Specialty Start Date End Date Kenneth Noland V DO [address] [place] [address] PCP - General Family Practice 04/13/21 Mainor Amaro [address] [place] [address] Specialty Dance Director Cardiology 03/04/20 Deloris Alexander MD [address] [place] [address] Specialty Dance Director Cardiology 11/10/20 Celebrity Manager Relationship Specialty Start Date End Date Kenneth Noland V, DO [address] [place] [address] PCP - General Family Practice 04/13/21 Mainor Amaro [address] [place] [address] Specialty Dance Director Cardiology 03/04/20 Deloris Alexander MD [address] [place] [address] Specialty Dance Director Cardiology 11/10/20 Celebrity Manager Relationship Specialty Start Date End Date Kenneth Noland V, DO [address] [place] [address] PCP - General Family Practice 04/13/21 Mainor Amaro [address] [place] [address] Specialty Dance Director Cardiology 03/04/20 Deloris Alexander MD [address] [place] [address] Specialty Dance Director Cardiology 11/10/20 Celebrity Manager Relationship Specialty Start Date End Date Kenneth Noland V, DO [address] [place] [address] PCP - General Family Practice 04/13/21 Mainor Amaro [address] [place] [address] Specialty Dance Director Cardiology 03/04/20 Deloris Alexander MD [address] [place] [address] Specialty Dance Director Cardiology 11/10/20 Celebrity Manager Relationship Specialty Start Date End Date Kenneth Noland V, DO [address] [place] [address] PCP - General Family Practice 04/13/21 Mainor Amaro [address] [place] [address] Specialty Dance Director Cardiology 03/04/20 Deloris Alexander MD [address] [place] [address] Specialty Dance Director Cardiology 11/10/20 Celebrity Manager Relationship Specialty Start Date End Date Kenneth Noland V, DO [address] [place] [address] PCP - General Family Practice 04/13/21 Mainor Amaro [address] [place] [address] Specialty Dance Director Cardiology 03/04/20 Deloris Alexander MD [address] [place] [address] Specialty Dance Director Cardiology 11/10/20 Celebrity Manager Relationship Specialty Start Date End Date Kenneth Noland V, DO [address] [place] [address] PCP - General Family Practice 04/13/21 Mainor Amaro [address] [place] [address] Specialty Dance Director Cardiology 03/04/20 Deloris Alexander MD [address] [place] [address] Specialty Dance Director Cardiology 11/10/20 Celebrity Manager Relationship Specialty Start Date End Date Kenneth Noland V, DO [address] [place] [address] PCP - General Family Medicine 04/13/21 Mainor Amaro [address] [place] [address] Specialty Dance Director Cardiology 03/04/20 Deloris Alexander MD [address] [place] [address] Specialty Dance Director Cardiology 11/10/20 Celebrity Manager Relationship Specialty Start Date End Date Kenneth Noland V, DO [address] [place] [address] PCP - General Family Medicine 04/13/21 Mainor Amaro [address] [place] [address] Specialty Dance Director Cardiology 03/04/20 Deloris Alexander MD [address] [place] [address] Specialty Dance Director Cardiology 11/10/20 Celebrity Manager Relationship Specialty Start Date End Date Kenneth Noland V, DO [address] [place] [address] PCP - General Family Medicine 04/13/21 Mainor Amaro [address] [place] [address] Specialty Dance Director Cardiology 03/04/20 Deloris Alexander MD [address] [place] [address] Specialty Dance Director Cardiology 11/10/20 Celebrity Manager Relationship Specialty Start Date End Date Kenneth Noland V, DO [address] [place] [address] PCP - General Family Medicine 04/13/[address] [place] [address] Specialty Dance Director Cardiology 03/04/20 Deloris Alexander MD [address] [place] [address] Specialty Dance Director Cardiology 11/10/20 Celebrity Manager Relationship Specialty Start Date End Date Kenneth Noland V, DO [address] [place] [address] PCP - General Family Medicine 04/13/[address] [place] [address] Specialty Dance Director Cardiology 03/04/20 Deloris Alexander MD [address] [place] [address] Specialty Dance Director Cardiology 11/10/20 Celebrity Manager Relationship Specialty Start Date End Date Kenneth Noland V, DO [address] [place] [address] PCP - General Family Medicine 04/13/[address] [place] [address] Specialty Dance Director Cardiology 03/04/20 Deloris Alexander MD [address] [place] [address] Specialty Dance Director Cardiology 11/10/20 Celebrity Manager Relationship Specialty Start Date End Date Kenneth Noland V, DO [address] [place] [address] PCP - General Family Medicine 04/13/[address] [place] [address] Specialty Dance Director Cardiology 03/04/20 Deloris Alexander MD [address] [place] [address] Specialty Dance Director Cardiology 11/10/20 Celebrity Manager Relationship Specialty Start Date End Date Kenneth Noland V, DO [address] [place] [address] PCP - General Family Medicine 04/13/21 Mainor Amaro [address] [place] [address] Specialty Dance Director Cardiology 03/04/20 Deloris Alexander MD [address] [place] [address] Specialty Dance Director Cardiology 11/10/20 Celebrity Manager Relationship Specialty Start Date End Date Kenneth Noland V, DO [address] [place] [address] PCP - General Family Medicine 04/13/[address] [place] [address] Specialty Dance Director Cardiology 03/04/20 Deloris Alexander MD [address] [place] [address] Specialty Dance Director Cardiology 11/10/20 Celebrity Manager Relationship Specialty Start Date End Date Kenneth Noland V, DO [address] [place] [address] PCP - General Family Medicine 04/13/21 Mainor Amaro [address] [place] [address] Specialty Dance Director Cardiology 03/04/20 Deloris Alexander MD [address] [place] [address] Specialty Dance Director Cardiology 11/10/20 Celebrity Manager Relationship Specialty Start Date End Date Kenneth Noland V, DO [address] [place] [address] PCP - General Family Medicine 04/13/21 Mainor Amaro [address] [place] [address] Specialty Dance Director Cardiology 03/04/20 Deloris Alexander MD [address] [place] [address] Specialty Dance Director Cardiology 11/10/20 Celebrity Manager Relationship Specialty Start Date End Date Kenneth Noland V, DO [address] [place] [address] PCP - General Family Medicine 04/13/[address] [place] [address] Specialty Dance Director Cardiology 03/04/20 Deloris Alexander MD [address] [place] [address] Specialty Dance Director Cardiology 11/10/20 Celebrity Manager Relationship Specialty Start Date End Date Kenneth Noland V, DO [address] [place] [address] PCP - General Family Medicine 04/13/21 Mainor Amaro [address] [place] [address] Specialty Dance Director Cardiology 03/04/20 Deloris Alexander MD [address] [place] [address] Specialty Dance Director Cardiology 11/10/20 Celebrity Manager Relationship Specialty Start Date End Date Kenneth Noland V, DO [address] [place] [address] PCP - General Family Medicine 04/13/21 Mainor Amaro [address] [place] [address] Specialty Dance Director Cardiology 03/04/20 Deloris Alexander MD [address] [place] [address] Specialty Dance Director Cardiology 11/10/20 Celebrity Manager Relationship Specialty Start Date End Date Kenneth Noland V, DO [address] [place] [address] PCP - General Family Medicine 04/13/21 Mainor Amaro [address] [place] [address] Specialty Dance Director Cardiology 03/04/20 Deloris Alexander MD [address] [place] [address] Specialty Dance Director Cardiology 11/10/20 Celebrity Manager Relationship Specialty Start Date End Date Kenneth Noland V, DO [address] [place] [address] PCP - General Family Medicine 04/13/21 Mainor Amaro [address] [place] [address] Specialty Dance Director Cardiology 03/04/20 Deloris Alexander MD [address] [place] [address] Specialty Dance Director Cardiology 11/10/20 Celebrity Manager Relationship Specialty Start Date End Date Kenneth Noland V, DO [address] [place] [address] PCP - General Family Medicine 04/13/21 Mainor Amaro [address] [place] [address] Specialty Dance Director Cardiology 03/04/20 Deloris Alexander MD [address] [place] [address] Specialty Dance Director Cardiology 11/10/20 Celebrity Manager Relationship Specialty Start Date End Date Kenneth Noland V, DO [address] [place] [address] PCP - General Family Medicine 04/13/21 Mainor Amaro [address] [place] [address] Specialty Dance Director Cardiology 03/04/20 Deloris Alexander MD [address] [place] [address] Specialty Dance Director Cardiology 11/10/20 Celebrity Manager Relationship Specialty Start Date End Date Kenneth Noland V, DO [address] [place] [address] PCP - General Family Medicine 04/13/[address] [place] [address] Specialty Dance Director Cardiology 03/04/20 Deloris Alexander MD [address] [facility] [place] [address] Specialty Dance Director Cardiology 11/10/20 Celebrity Manager Relationship Specialty Start Date End Date Kenneth Noland V, DO [address] [place] [address] PCP - General Family Medicine 04/13/21 Mainor Amaro [address] [place] [address] Specialty Dance Director Cardiology 03/04/20 Deloris Alexander MD [address] [place] [address] Specialty Dance Director Cardiology 11/10/20 Celebrity Manager Relationship Specialty Start Date End Date Kenneth Noland V, DO [address] [place] [address] PCP - General Family Medicine 04/13/21 Mainor Amaro [address] [place] [address] Specialty Dance Director Cardiology 03/04/20 Deloris Alexander MD [address] [place] [address] Specialty Dance Director Cardiology 11/10/20 Celebrity Manager Relationship Specialty Start Date End Date Kenneth Noland V, DO [address] [place] [address] PCP - General Family Medicine 04/13/21 Mainor Amaro [address] [place] [address] Specialty Dance Director Cardiology 03/04/20 Deloris Alexander MD [address] [place] [address] Specialty Dance Director Cardiology 11/10/20 Celebrity Manager Relationship Specialty Start Date End Date Kenneth Noland V, DO [address] [place] [address] PCP - General Family Medicine 04/13/21 Deloris Alexander MD [address] [place] [address] Specialty Dance Director Cardiology 11/10/20 Jo Mcdonald (Pa) [address] [facility] [place] [address] Physician Senior Clinical Data Coordinator Pulmonary and Critical Care Medicine 02/07/23 Celebrity Manager Relationship Specialty Start Date End Date Kenneth Noland V, [address] [place] [address] PCP - General Family Medicine 04/13/21 Deloris Alexander MD [address] [place] [address] (Fax) Specialty Dance Director Cardiology 11/10/20 Jo Mcdonald (Pa) [address] [facility] [place] [address] Physician Senior Clinical Data Coordinator Pulmonary and Critical Care Medicine 02/07/23 Celebrity Manager Relationship Specialty Start Date End Date Kenneth Noland V, DO [address] [place] [address] PCP - General Family Medicine 04/13/21 Deloris Alexander MD [address] [place] [address] (Fax) Specialty Dance Director Cardiology 11/10/20 Jo Mcdonald (Pa) [address] [facility] [place] [address] Physician Senior Clinical Data Coordinator Pulmonary and Critical Care Medicine 02/07/23 Celebrity Manager Relationship Specialty Start Date End Date Kenneth Noland V, DO [address] [place] [address] PCP - General Family Medicine 04/13/21 Deloris Alexander MD [address] [place] [address] (Fax) Specialty Dance Director Cardiology 11/10/20 Jo Mcdonald (Pa) [address] [facility] [place] [address] Physician Senior Clinical Data Coordinator Pulmonary and Critical Care Medicine 02/07/23 Celebrity Manager Relationship Specialty Start Date End Date Kenneth Noland V, DO [address] [place], [place] [address] PCP - General Family Medicine 04/13/21 Deloris Alexander MD [address] [place] [address] Specialty Dance Director Cardiology 11/10/20 Jo Mcdonald (Pa) [address] [place] [address] Physician Senior Clinical Data Coordinator Pulmonary and Critical Care Medicine 02/07/23 Celebrity Manager Relationship Specialty Start Date End Date Kenneth Noland V, DO [address] [place], [place] [address] PCP - General Family Medicine 04/13/21 Deloris Alexander MD [address] [place] [address] Specialty Dance Director Cardiology 11/10/20 Jo Mcdonald (Pa) [address] [place] [address] Physician Senior Clinical Data Coordinator Pulmonary and Critical Care Medicine 02/07/23 Celebrity Manager Relationship Specialty Start Date End Date Kenneth Noland V, DO [address] [place] [address] PCP - General Family Medicine 04/13/21 Deloris Alexander MD [address] [place] [address] Specialty Dance Director Cardiology 11/10/20 Jo Mcdonald (Tia) [address] [place] [address] Physician Senior Clinical Data Coordinator Pulmonary and Critical Care Medicine 02/07/23 Celebrity Manager Relationship Specialty Start Date End Date Kenneth Noland V, DO [address] [place] [place] [id number] PCP - General Family Medicine 04/13/21 Mainor Amaro [address] [address] Specialty Dance Director Cardiology 03/04/20 02/06/23 Deloris Alexander MD [address] [place] [address] (Fax) Specialty Dance Director Cardiology 11/10/20 Jo Mcdonald (Tia) [address] [place] [address] Physician Senior Clinical Data Coordinator Pulmonary and Critical Care Medicine 02/07/23 Celebrity Manager Relationship Specialty Start Date End Date Kenneth Noland V, DO [address] [place], [place] [address] PCP - General Family Medicine 04/13/21 Deloris Alexander MD [address] [place] [address] (Fax) Specialty Dance Director Cardiology 11/10/20 Jo Mcdonald (Pa) [address] [place] [address] (Fax) Physician Senior Clinical Data Coordinator Pulmonary and Critical Care Medicine 02/07/23 Celebrity Manager Relationship Specialty Start Date End Date Kenneth Noland V, DO [address] [place], [place] [address] PCP - General Family Medicine 04/13/21 Deloris Alexander MD [address] [place] [address] (Fax) Specialty Dance Director Cardiology 11/10/20 Jo Mcdonald (Pa) [address] [place] [address] Physician Senior Clinical Data Coordinator Pulmonary and Critical Care Medicine 02/07/23 Celebrity Manager Relationship Specialty Start Date End Date Kenneth Noland V, DO [address] [place], [place] [address] PCP - General Family Medicine 04/13/21 Deloris Alexander MD [address] [place] [address] (Fax) Specialty Dance Director Cardiology 11/10/20 Jo Mcdonald (Pa) [address] [place] [place] [address] Physician Senior Clinical Data Coordinator Pulmonary and Critical Care Medicine 02/07/23 Celebrity Manager Relationship Specialty Start Date End Date Kenneth Noland V, DO [address] [place], [place] [address] PCP - General Family Medicine 04/13/21 Deloris Alexander MD [address] [place] [address] (Fax) Specialty Dance Director Cardiology 11/10/20 Jo Mcdonald PA [address] [place] [address] Physician Senior Clinical Data Coordinator Pulmonary and Critical Care Medicine 02/07/23 Celebrity Manager Relationship Specialty Start Date End Date Kenneth Noland V, DO [address] [place] [address] PCP - General Family Medicine 04/13/21 Deloris Alexander MD [address] [place] [address] Specialty Dance Director Cardiology 11/10/20 Jo Mcdonald PA [address] [place] [address] Physician Senior Clinical Data Coordinator Pulmonary and Critical Care Medicine 02/07/23 Celebrity Manager Relationship Specialty Start Date End Date Kenneth Noland V, DO [address] [place], [place] [address] PCP - General Family Medicine 04/13/21 Mainor Amaro [address] [place] [address] Specialty Dance Director Cardiology 03/04/20 02/06/23 Deloris Alexander MD [address] [address] [place] [id number] Specialty Dance Director Cardiology 11/10/20 Celebrity Manager Relationship Specialty Start Date End Date Kenneth Noland V, DO [address] [place], [place] [id number] PCP - General Family Medicine 04/13/21 Deloris Alexander MD [address] [place] [phone] (Fax) Specialty Dance Director Cardiology 11/10/20 Jo Mcdonald PA [address] [place] [address] Physician Senior Clinical Data Coordinator Pulmonary and Critical Care Medicine 02/07/23 Celebrity Manager Relationship Specialty Start Date End Date Kenneth Noland V, DO [address] [place] [address] PCP - General Family Medicine 04/13/21 Deloris Alexander MD [address] [place] [phone] (Fax) Specialty Dance Director Cardiology 11/10/20 Jo Mcdonald PA [address] [place] [address] (Fax) Physician Senior Clinical Data Coordinator Pulmonary and Critical Care Medicine 02/07/23 Andrea Mosley MD [address] [place] [address] Surgeon Cardiac Surg 08/10/23 Celebrity Manager Relationship Specialty Start Date End Date Kenneth Noland V, DO [address] [place] [address] PCP - General Family Medicine 04/13/21 Deloris Alexander MD [address] [place] [phone] (Fax) Specialty Dance Director Cardiology 11/10/20 Jo Mcdonald PA [address] [place] [address] Physician Senior Clinical Data Coordinator Pulmonary and Critical Care Medicine 02/07/23 Andrea Mosley MD [address] [place] [address] Surgeon Cardiac Surg 08/10/23 FOR RECORDS PERTAINING TO PATIENTS WHO ARE OR HAVE BEEN ENROLLED IN A CHEMICAL DEPENDENCY/SUBSTANCEABUSE PROGRAM, SOME INFORMATION MAY BE OMITTED. This clinical summary was aggregated from multiple sources. Caution should be exercised in using it in the provision of clinical care. This summary normalizes information from multiple sources, and as a consequence, information in this document may materially change the coding, format and clinical context of patient data. In addition, data may be omitted in some cases. CLINICAL DECISIONS SHOULD BE BASED ON THE PRIMARY CLINICAL RECORDS. [employer] [facility]. provides no warranty or guarantee of the accuracy or completeness of information in this document.
--- NOTE | 2023-09-07 12:17 | PCM.OP.PRO ---
Procedure Report Date of Procedure: 09/07/23 CONSCIOUS SEDATION REPORT BRIEF HISTORY OF PRESENT ILLNESS: The patient is a 83-year-old male who presented to [facility] for an elective outpatient cardioversion due to underlying atrial fibrillation. The patient reports no PO intake since midnight, but is currently therapeutic on anticoagulation. The patient does have a history of obstructive sleep apnea and is compliant with therapy. The patient reports no history of smoking and COPD. The patient denies any recent constitutional symptoms such as fevers, chills, nausea or vomiting. The patient denies previous applicable anesthetic complications. Patient's last known ejection fraction was 65%. Patient has had several previous cardioversions and an ablation. Patient did take anticoagulation on the day of the study. PHYSICAL EXAMINATION: VITAL SIGNS: Reviewed and were acceptable. GENERAL: The patient is a male, in no apparent distress, speaking in full sentences. HEENT: Normocephalic, atraumatic. Mucous membranes are moist and pink. Good mouth opening noted. Trachea is midline. Good neck mobility. MP III CHEST: S1, S2 irregularly irregular. No murmurs, rubs or gallops were noted. LUNGS: Clear to auscultation bilaterally without appreciable wheezes, rales or rhonchi. ABDOMEN: Soft, nontender, nondistended. Positive bowel sounds. EXTREMITIES: There is no clubbing, cyanosis or edema. ASA Class: II DESCRIPTION OF PROCEDURE: After confirmation of informed consent, the patient's anesthesia plan was reviewed in detail. Propofol was chosen. Risks and benefits were reviewed and the patient agreed to proceed. At 12:06 PM, the patient was given 60 mg of propofol. The patient achieved an appropriate level of sedation and received 1 attempt synchronized cardioversion, at [address] Andrews at the bedside. This was successful in achieving normal sinus rhythm. The patient was monitored until 12:20 PM, at which time the patient reached their baseline mental status and function. The patient tolerated the procedure well. COMPLICATIONS: None ESTIMATED BLOOD LOSS: None RECOMMENDATIONS: Okay to recover in usual fashion. Procedures Pulmonary 9xxxx: [id number] Con Sedation
--- NOTE | 2023-09-07 12:22 | PRO.PCM_ITS ---
Procedure Report Date of Procedure: 09/07/23 DC cardioversion. 83-year-old male with a history of atrial flutter with preserved ejection f raction. The patient has been on anticoagulation uninterrupted for at least 3 to 4 weeks. The patient was brought to cardiac catheterization lab in the postabsorptive nonsedated state. Informed consent was obtained. Anterior- posterior pads were applied. The patient was then administered 60 mg of intravenous propofol by Dr. Dumont of the critical care division. 200 J of synchronized biphasic DC cardioversion energy were applied with prompt reversal to sinus rhythm. Patient tolerated the procedure well. Conclusion: Successful DC cardioversion from atrial flutter to sinus rhythm. Follow-up as per office protocol
== END 2023-09-07 13:20 | disposition home or self-care (01) ==
LOC: CLSP 10:28
PROVIDERS: Nurse Practitioner Family; Physician Assistant Medical; PCP Family Medicine; Referring Provider Internal Medicine Cardiovascular Disease; Visit Provider Internal Medicine Cardiovascular Disease
DX: I48.92 Unspecified atrial flutter (principal); I48.0 Paroxysmal atrial fibrillation; E78.2 Mixed hyperlipidemia; I25.10 Atherosclerotic heart disease of native coronary artery without angina pectoris; I10 Essential (primary) hypertension; G47.33 Obstructive sleep apnea (adult) (pediatric); Z87.891 Personal history of nicotine dependence; Z79.82 Long term (current) use of aspirin; Z79.01 Long term (current) use of anticoagulants; Z79.899 Other long term (current) drug therapy
CPT/HCPCS: 36415; 80048; 85014; 85018; 92960; 93005; J7040

== ENCOUNTER → 2023-09-26 | Outpatient (CLI) | payer MEDICARE, SELFPAY ==
--- OUTSIDE RECORDS SUMMARY | 2023-09-26 07:14 | XMS RPT_ITS | CCD ---
Author Name Unknown Address [address] [place] [address] Organization [facility] Care Team Providers Care Silk Top Hat Body Maker Name Role Phone GLENDYGWEN DPM Unavailable Unavailable GLENDYGWEN DPM Unavailable Unavailable GWNE PIKE DPM Unavailable Unavailable PROVIDER, UNKNOWN Attending Unavailable PROVIDER, UNKNOWN Admitting Unavailable Mainor Amaro Unavailable Deloris Alexander MD Unavailable Ludin Scott DO, Dennis Primary Care Provider Mainor Amaro Unavailable Deloris Alexander MD Unavailable Ludin Scott DO, Dennis Primary Care Provider Mainor Amaro F Unavailable Ludin Scott DO, Dennis Primary Care Provider Mainor Amaro Unavailable Deloris Alexander MD Unavailable Ludin Scott DO, Dennis Primary Care Provider Jo Mcdonald (Tia) Unavailable Deloris Alexander MD Unavailable Mainor Amaro Unavailable Jo Dillon Unavailable [phone] Dimitri CLEMENTE, Andrea Saldaña Unavailable KIMBERLY PRADO Attending Unavailable KENNETH NOLAND Primary Care Unavailable DELORIS ALEXANDER Referring Unavailable KENNETH NOLAND Primary Care Unavailable DELORIS ALEXANDER Admitting Unavailable DELORIS ALEXANDER Attending Unavailable KENNETH NOLAND Primary Care Unavailable LUDIN, KENNETH Primary Care Unavailable SCHWEIDELORIS HERRERA Referring Unavailable SCHWDELORIS MULLEN Referring Unavailable LUDIN, KENNETH Primary Care Unavailable LUDIN, KENNETH Primary Care Unavailable DINORAH, EVARISTO Attending Unavailable ULDIN, KENNETH Primary Care Unavailable LINARDI, EVARISTO Attending Unavailable LUDIN, KENNETH Primary Care Unavailable LINARDI, EVARISTO Attending Unavailable LUDIN, KENNETH Primary Care Unavailable SCHWDELORIS MULLEN Attending Unavailable LUDIN, KENNETH Referring Unavailable LUDIN, KENNETH Primary Care Unavailable LUDIN, KENNETH Primary Care Unavailable LUDIN, KENNETH Attending Unavailable LUDIN, KENNETH Primary Care Unavailable LUDIN, KENNETH Attending Unavailable SOLTESZ, EDKIRILL G Referring Unavailable LUDIN, KENNETH Primary Care Unavailable SOLTESZ, EDWARD G Referring Unavailable LUDIN, KENNETH Primary Care Unavailable SOLTESZ, EDWARD G Referring Unavailable LUDIN, KENNETH Primary Care Unavailable SOLTESZ, EDWARD G Referring Unavailable LUDIN, KENNETH Primary Care Unavailable SOLTESZ, EDWARD G Referring Unavailable LUDIN, KENNETH Primary Care Unavailable SOLTESZ, EDWARD G Referring Unavailable LUDIN, KENNETH Primary Care Unavailable LUDIN, KENNETH Primary Care Unavailable LUDIN, KENNETH Attending Unavailable LUDIN, KENNETH Primary Care Unavailable LUDIN, KENNETH Referring Unavailable SOLTESZ, EDWARD G Attending Unavailable LUDIN, KENNETH Primary Care Unavailable LUDIN, KENNETH Primary Care Unavailable LUDIN, KENNETH Attending Unavailable SOLTESZ, EDWARD G Referring Unavailable LUDIN, KENNETH Primary Care Unavailable SOLTESZ, EDWARD G Referring Unavailable LUDIN, KENNETH Primary Care Unavailable SOLTESZ, EDWARD G Referring Unavailable LUDIN, KENNETH Primary Care Unavailable SOLTESZ, EDWARD G Referring Unavailable LUDIN, KENNETH Primary Care Unavailable Medications [...] Drug Class(es) Dates Sig (Normalized) Sig (Original) [id number] 200 actuat albuterol 0.09 mg/actuat metered dose [...] Coronary atherosclerosis; Translations: [Atherosclerotic heart disease of [place] coronary artery without angina pectoris] Onset: 05-03-2022 05-03-2022 Chronic Disorders of lipid metabolism (20 sources) Mixed hyperlipidemia; Translations: [Mixed hyperlipidemia] Onset: 03-04-2020 03-04-2020 Chronic Essential hypertension (20 sources) Essential hypertension; Translations: [Essential (primary) hypertension] Onset: 03-04-2020 03-04-2020 Chronic Other aftercare (20 sources) Long-term current use of anticoagulant; Translations: [long-term (current) use of anticoagulants] 06-18-2021 Episodic Other aftercare (1 source) Wound finding; Translations: [Encounter for other specified aftercare] Episodic Other aftercare (2 sources) long-term (current) use of anticoagulants; Translations: [Anticoagulant long-term use] Onset: 05-17-2023 Episodic Other bone disease and musculoskeletal deformities [...] conditions (not mental disorders or infectious disease) (2 sources) Computed tomography result abnormal; Translations: [Abnormal findings on diagnostic imaging of other specified body structures] Chronic Residual codes; unclassified (20 sources) H/O [...] fibrillation; Translations: [Persistent atrial fibrillation (HCC)] Onset: 09-01-2023 Unclassified (1 source) EKG Onset: 03-20-2023 Unclassified (1 source) 2 week 2 days post visit right knee injury Onset: 05-11-2023 Past or Other Problems Problem Classification Problem Date Documented Da te Episodic/Chronic Cardiac dysrhythmias (20 sources) Palpitations; Translations: [Palpitations] Onset: 04-29-2020 04-29-2020 Episodic Malaise and fatigue (1 source) Other fatigue; Translations: [Fatigue, unspecified type] Onset: 01-30-2023 Episodic Other diseases of veins and lymphatics [...] Time Vital Sign Value Performing Clinician Nieves simmosn 05-17-2023 13:40-0400 Diastolic blood pressure 79 mm[Hg] Kimberly Prado APRN.CNP Work Phone: [facility] 05-17-2023 13:40-0400 Systolic blood pressure 147 mm[Hg] Kimberly Prado APRN.CNP Work Phone: [facility] 05-17-2023 13:35-0400 Body height 177.8 cm Kimberly Prado APRN.CNP Work Phone: [facility] 05-17-2023 13:35-0400 Body weight 106.59 kg Kimberly Prado APRN.CNP Work Phone: [facility] 05-17-2023 13:35-0400 Heart rate 72 /min Kimberly Prado COMMUNICATIONS MAINTAINER.BASKETBALL REFEREE Work Phone: [facility] 05-17-2023 13:35-0400 SaO2% (BldA) [Mass fraction] 97 % Kimberly Prado COMMUNICATIONS MAINTAINER.BASKETBALL REFEREE Work Phone: [facility] 03-20-2023 13:06-0400 Body weight 108.86 kg Nurse Pob Work Phone: [facility] 03-20-2023 13:06-0400 Diastolic blood pressure 72 mm[Hg] Nurse Pob Work Phone: [facility] 03-20-2023 13:06-0400 Heart rate 70 /min Nurse Pob Work Phone: [facility] 03-20-2023 13:06-0400 SaO2% (BldA) [Mass fraction] 97 % Nurse Pob Work Phone: [facility] 03-20-2023 13:06-0400 Systolic blood pressure 122 mm[Hg] Nurse Pob Work Phone: [facility] 09-27-2022 12:57-0500 Body height 177.8 cm Evaristo George COMMUNICATIONS MAINTAINER.BASKETBALL REFEREE Work Phone: [facility] 09-27-2022 12:57-0500 Body weight 111.58 kg Evaristo George COMMUNICATIONS MAINTAINER.BASKETBALL REFEREE Work Phone: [facility] 09-27-2022 12:57-0500 Diastolic blood pressure 74 mm[Hg] Evaristo George COMMUNICATIONS MAINTAINER.BASKETBALL REFEREE Work Phone: [facility] 09-27-2022 12:57-0500 Heart rate 91 /min Evaristo George COMMUNICATIONS MAINTAINER.BASKETBALL REFEREE Work Phone: [facility] 09-27-2022 12:57-0500 SaO2% (BldA) [Mass fraction] 99 % Evaristo Goinsardi COMMUNICATIONS MAINTAINER.BASKETBALL REFEREE Work Phone: [facility] 09-27-2022 12:57-0500 Systolic blood pressure 117 mm[Hg] Evaristo George COMMUNICATIONS MAINTAINER.BASKETBALL REFEREE Work Phone: [facility] 09-01-2022 16:09-0500 Body weight 110.68 kg Deloris Alexander MD Work Phone: [facility] 09-01-2022 16:09-0500 Diastolic blood pressure 73 mm[Hg] Deloris Alexander MD Work Phone: [facility] 09-01-2022 16:09-0500 Heart rate 63 /min Deloris Alexander MD Work Phone: [facility] 09-01-2022 16:09-0500 SaO2% (BldA) [Mass fraction] 95 % Deloris Alexander MD Work Phone: [facility] 09-01-2022 16:09-0500 Systolic blood pressure 121 mm[Hg] Deloris Alexander MD Work Phone: [facility] 08-11-2022 14:40-0500 Diastolic blood pressure 57 mm[Hg] Kenneth Noland V, DO Work Phone: [facility] 08-11-2022 14:40-0500 Heart rate 56 /min Kenneth Noland V, DO Work Phone: [facility] 08-11-2022 14:40-0500 Systolic blood pressure 128 mm[Hg] Kenneth Noland V, DO Work Phone: [facility] 06-05-2022 13:14-0400 Body temperature 98.49 [degF] Nurse Pob Work Phone: [facility] 05-05-2022 10:31-0400 Body weight 108.41 kg Kennethmiguel Noland V, DO Work Phone: [facility] 05-05-2022 10:31-0400 Diastolic blood pressure 56 mm[Hg] Kenneth Noland V, DO Work Phone: [facility] 05-05-2022 10:31-0400 Heart rate 49 /min Kenneth Noland V, DO Work Phone: [facility] 05-05-2022 10:31-0400 Systolic blood pressure 129 mm[Hg] Kenneth Noland V, DO Work Phone: [facility] 02-22-2022 12:51-0400 Body height 177.8 cm Kimberly Prado COMMUNICATIONS MAINTAINER.BASKETBALL REFEREE Work Phone: [facility] 02-22-2022 12:51-0400 Body weight 109.32 kg Kimberly Prado COMMUNICATIONS MAINTAINER.BASKETBALL REFEREE Work Phone: [facility] 02-22-2022 12:51-0400 Diastolic blood pressure 70 mm[Hg] Kimberly Prado COMMUNICATIONS MAINTAINER.BASKETBALL REFEREE Work Phone: [facility] 02-22-2022 12:51-0400 Heart rate 52 /min Kimberly Prado COMMUNICATIONS MAINTAINER.BASKETBALL REFEREE Work Phone: [facility] 02-22-2022 12:51-0400 SaO2% (BldA) [Mass fraction] 96 % Kimberly Prado COMMUNICATIONS MAINTAINER.BASKETBALL REFEREE Work Phone: [facility] 02-22-2022 12:51-0400 Systolic blood pressure 134 mm[Hg] Kimberly Prado COMMUNICATIONS MAINTAINER.BASKETBALL REFEREE Work Phone: [facility] Encounters Encounter Date Encounter Type Care Provider Facility Start: 09-14-2023 End: 09-14-2023 ambulatory ANDREA MOSLEY Facility:[facility] Start: 09-13-2023 End: 09-13-2023 [facility] Start: 09-13-2023 End: 09-14-2023 [facility] Start: 09-12-2023 End: 09-12-2023 ambulatory DELORIS ALEXANDER Facility:[facility] Start: 08-17-2023 Telephone encounter Deloris varner MD Work Phone: [facility] [place] Procedures Date Procedure Procedure Detail Performing Clinician Start: 05-25-2023 Arthrocentesis aspir &/inj major jt/bursa w/o us Kenneth Noland DO Work Phone: Start: 05-17-2023 Ecg routine ecg w/le ast 12 lds w/i&r Kimberly Prado COMMUNICATIONS MAINTAINER.BASKETBALL REFEREE Work Phone: Start: 05-17-2023 Echo tthrc r-t 2d w/wom-mode compl spec&colr d Deloris Alexander MD Work Phone: Start: 05-17-2023 Creatinine blood [facility] Start: 03-20-2023 Ecg routine ecg w/le ast 12 lds w/i&r Deloris Alexander MD Work Phone: Start: 02-07-2023 Antibody screen JOSE PRADO Plan of Treatment Date Care Activity Detail Author Start: 09-20-[address] [facility] Start: 02-08-2026 DIABETES SCREEN DIABETES SCREEN [facility] Start: 02-08-2026 Diabetes Screening Diabetes Screening [facility] Start: 02-07-2026 DIABETES SCREEN DIABETES SCREEN [facility] Start: 01-30-2026 DIABETES SCREEN DIABETES SCREEN [facility] Start: 05-24-2025 DIABETES SCREEN DIABETES SCREEN [facility] Start: 10-18-2024 DIABETES SCREEN DIABETES SCREEN [facility] Start: 03-20-2024 BP CONTROLLED (<130/80) BP CONTROLLED (<130/80) [facility] Start: 01-27-2024 BP CONTROLLED (<130/80) BP CONTROLLED (<130/80) [facility] Start: 09-27-2023 BP CONTROLLED (<130/80) BP CONTROLLED (<130/80) [facility] Start: 09-01-2023 BP CONTROLLED (<130/80) BP CONTROLLED (<130/80) [facility] Start: 08-17-2023 End: 11-16-2023 CBC W Auto Differential panel - Blood CBC + DIFF Lab Routine Atrial fibrillation, unspecified type (HCC) Expected: 08/17/2023, Expires: 11/16/2023 [facility] Work Phone: Immunizations Immunization Date Immunization Notes Care Provider Mary Kate bustillo 06-16-2022 influenza, high-dose , quadrivalent vaccine (FLUZONE HIGH DOSE QUADRIVALENT) Ttm Check [facility] Work Phone: 06-16-2022 influenza virus vacc ine, unspecified formulation Evaristo Linardi COMMUNICATIONS MAINTAINER.BASKETBALL REFEREE Work Phone: [facility] 08-25-2021 zoster vaccine recombinant Kenneth Noland V, DO Work Phone: [facility] Work Phone: 06-15-2021 influenza, high-dose , quadrivalent vaccine (FLUZONE HIGH DOSE QUADRIVALENT) Kenneth Noland V, DO Work Phone: [facility] Work Phone: 04-27-2021 zoster vaccine recombinant Kenneth Noland V, DO Work Phone: [facility] Work Phone: 10-28-2020 COVID-19 vaccine, fu ll dose (MODERNA) Kenneth Noland V, DO Work Phone: [facility] Work Phone: 09-30-2020 COVID-19 vaccine, fu ll dose (MODERNA) Kenneth Noland V, DO Work Phone: [facility] Work Phone: 09-20-2020 tetanus toxoid, redu bandar diphtheria toxoid, and acellular pertussis vaccine, adsorbed Kennethmiguel Noland V, DO Work Phone: [facility] Work Phone: 07-17-2019 pneumococcal polysaccharide vaccine, 23 valent Kenneth Noland V, DO Work Phone: [facility] Work Phone: 06-26-2019 influenza, injectabl e, quadrivalent, contains preservative Kenneth Noland V, DO Work Phone: [facility] Work Phone: 06-24-2019 influenza, injectabl e, quadrivalent, preservative free Andrea Mosley MD Work Phone: [facility] Work Phone: 06-24-2019 influenza, seasonal, injectable Kenneth Noland V, DO Work Phone: [facility] Work Phone: 06-24-2019 influenza, seasonal, injectable, preservative free Kenneth Ludin V, DO Work Phone: [facility] Work Phone: 2018 influenza, injectabl e, quadrivalent, preservative free Andrea Mosley MD Work Phone: [facility] Work Phone: 2018 influenza, seasonal, injectable Kenneth Ludin V, DO Work Phone: [facility] Work Phone: 2018 influenza, seasonal, injectable, preservative free Kenneth Ludin V, DO Work Phone: [facility] Work Phone: 05-14-2017 influenza, high dose seasonal, preservative-free Kenneth Ludin V, DO Work Phone: [facility] Work Phone: 01-08-2017 tetanus toxoid, redu bandar diphtheria toxoid, and acellular pertussis vaccine, adsorbed Kenneth Ludin V, DO Work Phone: [facility] Work Phone: 06-01-2016 influenza, injectabl e, quadrivalent, preservative free Andrea Mosley MD Work Phone: [facility] Work Phone: 06-01-2016 influenza, seasonal, injectable Kenneth Ludin V, DO Work Phone: [facility] Work Phone: 06-01-2016 influenza, seasonal, injectable, preservative free Kenneth Ludin V, DO Work Phone: [facility] Work Phone: 06-02-2015 influenza, injectabl e, quadrivalent, preservative free Andrea Mosley MD Work Phone: [facility] Work Phone: 06-02-2015 influenza, seasonal, injectable Kenneth Ludin V, DO Work Phone: [facility] Work Phone: 06-02-2015 influenza, seasonal, injectable, preservative free Kenneth Ludin V, DO Work Phone: [facility] Work Phone: 02-23-2015 hepatitis B vaccine, pediatric or pediatric/adolescent dosage Kenneth Ludin V, DO Work Phone: [facility] Work Phone: 09-07-2014 hepatitis B vaccine, pediatric or pediatric/adolescent dosage Kenneth Ludin V, DO Work Phone: [facility] Work Phone: 08-10-2014 hepatitis B vaccine, pediatric or pediatric/adolescent dosage Kenneth Ludin V, DO Work Phone: [facility] Work Phone: 08-10-2014 influenza, injectabl e, quadrivalent, preservative free Andrea Mosley MD Work Phone: [facility] Work Phone: 08-10-2014 influenza, seasonal, injectable Kenneth Ludin V, DO Work Phone: [facility] Work Phone: 08-10-2014 influenza, seasonal, injectable, preservative free Kenneth Ludin V, DO Work Phone: [facility] Work Phone: 08-06-2014 hepatitis B vaccine, adult dosage Kenneth Ludin V, DO Work Phone: [facility] Work Phone: 08-06-2014 influenza, seasonal, injectable Kenneth Ludin V, DO Work Phone: [facility] Work Phone: 05-13-2013 influenza, seasonal, injectable Kenneth Ludin V, DO Work Phone: [facility] Work Phone: Payers Date Payer Category Payer Medicare [id number] 2018 Unknown [facility] [id number] 2018-Present [phone] [address] [place] [address] O [id number] 2018 Unknown [employer] S AND BLUE SHIELD [employer]THMICHELE LEE[employer] O [id number] 2018-Present [phone] [address] [place] [address] O [id number] Medicare [id number] Social History Date Type Detail Facility Start: 04-28-2020 End: 09-01-2022 Tobacco smoking status NHIS Ex-smoker [facility] End: 09-03-1984 History of tobacco use Current smoker [facility] End: 09-03-1984 History of tobacco use Cigarette Smoker [facility] Start: 12-21-2021 End: 05-17-2023 Alcohol intake Current drinker of alcohol (finding) [facility] Start: 05-11-2010 History SDOH Alcohol Comment occassionally [facility] Start: 1940 Sex Assigned At Male C [facility] Start: 12-11-2021 End: 06-05-2022 Exposure to SARS-CoV-2 (event) Not sure [facility] Start: 04-28-2020 End: 01-18-2023 Cigarettes smoked current (pack per day) - Reported 2 [facility] Start: 04-28-2020 End: 09-01-2022 Tobacco use and exposure Smokeless tobacco non-user [facility] Work Phone: Start: 01-18-2023 End: 02-07-[address] [facility] National Score (1-100), lower number is lower risk 69 [facility] Start: 04-27-2020 Gender identity Identifies as male gender (finding) [facility] Clinical Notes 04-28-2020 to 09-14-2023 Telephone Encounter - Saira Carson RN - 08/17/2023 1:31 PM ESTTelephone Encounter - Evita Avina - 08/17/2023 11:44 AM ESTTelephone Encounter - Flor Reed RN - 08/17/2023 11:14 AM EST Note Date & Type Note Facility 09-14-2023 Note HNO ID: [id number] Author: ANDREA MOSLEY MD Service: ? Author Type: Physician Type: Progress Notes Filed: 09/14/2023 11:24 Note Text: Thoracic and Cardiovascular Surgery [facility] SURGICAL STAFF CONSULT Patient Type: CONSULT Visit to determine Surgery: YES PCP: Kenneth Noland [address] [place] [address] Referring Physician: SELF HPI: Mr. Joseph Dunham is a seen in consultation at the request of Self for an opinion regarding cardiac surgery. He is a 83 year old male with atrial fibrillation. He is currently symptomatic and complains of fatigue. I have personally reviewed his CT scan which shows no pulmonary vein stenosis or LAAthrombus. His echocardiogram reveals normal ventricular function and normal valves. S/p 2 prior PVI. Multiple DCC. CHADSVASC 4. BMI 34. Stress test negative. Moderate carotid disease. His significant past medical history includes hypertnesion, hyperlipidemia, and atrial fibrillation. Based on my evaluation he is a reasonable candidate for surgery. Impression: Atrial fibrillation Plan: Good candidate for Convergent Plus (subxiphoid ablation and Left Atrial Appendage Clip Placement with LOM ablation) These findings will be communicated back to the requesting physician via electronic medical record and/or dictated letter. Andrea Mosley MD [facility] 09-13-2023 Note HNO ID: [id number] Author: DAWIT SEALS RRT Service: ? Author Type: Registered Resp Therapist Type: Progress Notes Filed: 09/13/2023 15:20 Note Text: PULM FUNCTION SMARTBLOCK: Provider: Andrea Mosley MD Spirometry: 1 DLCO: 1 System: 10 - [id number] [facility] 09-13-2023 Note HNO ID: [id number] Author: ?, ?, ? Service: ? Author Type: ? Type: Progress Notes Filed: 09/13/2023 14:37 Note Text: Optical Coherence Tomography Angiography (OCTA) of the Retinal Vasculature on Patients undergoing Cardiovascular Studies. (CYCLOPS) study purpose, design and informed consent was reviewed with patient, including but not limited to a review of R/B/A. The patient was given an opportunity to ask questions and verbalize an understanding of the study. Patient wishes to participate in the study. Consent signed and patient was given a copy. Consent signed on 09/13/2023 by Joanne Harman. [facility] 09-13-2023 Note Education (OPHTMN) JOSEPH DUNHAM ([id number]) 1940 M [facility] Date Time Provider Department 09/13/23 TRENT ALJermaine Reason for Visit: Research [[id number]] Cmt: Cyclops Study. During your visit today, we recorded the following information about you: Allergies As of Date: 09/13/2023 (No Known Allergies) Date Reviewed: 09/13/2023 Reviewed by: Tammy Dexter, RN - Fully Assessed Prescriptions as of 09/13/2023 - amiodarone (PACERONE) 200 mg tablet Take 200 mg by mouth once daily. - ipratropium bromide (ATROVENT) 42 mcg (0.06 %) nasal spray - losartan (COZAAR) 100 mg tablet Take 1 tablet by mouth once daily. - omeprazole (PRILOSEC) 20 mg capsule Take 1 capsule by mouth daily before breakfast. - Tadalafil (CIALIS) 10 mg tablet Take 1 tablet by mouth once daily - metoprolol tartrate, short acting, (LOPRESSOR) 50 mg tablet Take 50 mg by mouth three times a day. - tamsulosin (FLOMAX) 0.4 mg Take 1 capsule by mouth once daily - vit C/E/Zn/coppr/lutein/zeaxan (PRESERVISION AREDS-2 ORAL) Take 1 tablet by mouth twice daily. - dilTIAZem CD (CARDIZEM CD, CARTIA XT) 180 mg 24 hr capsule Take 1 capsule by mouth twice daily. - latanoprost (XALATAN) 0.005 % ophthalmic solution INSTILL 1 DROP INTO EACH EYE NIGHTLY - levothyroxine (SYNTHROID) 50 mcg tablet TAKE 1 TABLET BY MOUTH ONCE DAILY ON AN EMPTY STOMACH FOR THYROID - rivaroxaban (XARELTO) 20 mg tablet Take 1 tablet by mouth once daily. - rosuvastatin (CRESTOR) 5 mg tablet Take 1 tablet by mouth daily at bedtime. - cyclobenzaprine (FLEXERIL) 5 mg tablet Take 1 tablet by mouth three times daily as needed for muscle spasm. - Fluorouracil 5 % cream APPLY A THIN LAYER TO BOTH FOREARMS TWICE A DAY FOR 2 WEEKS, APPLY A THIN LAYER TO THE LEFT FOREARM WHERE CANCERS ARE LOCATED FOR AN ADDITIONAL TWICE A DAY FOR 2 WEEKS - nitroglycerin sublingual (NITROQUICK) 0.4 mg SL tablet Dissolve 0.4 mg under the tongue every 5 minutes as needed for chest pain. - aspirin, enteric coated (ASPIRIN, ENTERIC COATED) 81 mg EC tablet Take 81 mg by mouth once daily. Meds Comments as of 05/11/2010: Patient unsure of dosages did not provided medicaiton list. Kathryn Mora MITCHELL 05/11/2010 Encounter Status:Closed by JOANNE HARMAN on 09/13/23 [facility] 09-13-2023 Note HNO ID: [id number] Author: LILIYA KILGORE RT(R) Service: Radiology Author Type: Technologist Type: Progress Notes Filed: 09/13/2023 10:57 Note Text: RADIOLOGY SERVICE PROGRESS NOTE SERVICE DATE: 09/13/2023 SERVICE TIME: 9:57 AM PATIENT IDENTITY VERIFICATION COMPLETED USING TWO (2) STANDARD IDENTIFIERS: Name and Date of confirmed by patient verbally and Name and Date of confirmed by identification band FALL SCREENING: Has the patient had 2 falls in the last year or 1 fall with injury or currently using an Ambulatory Assistive Device (Walker, Cane, Wheelchair, Crutches, etc.)? No PATIENT GENDER DATA: .male ALLERGIES: Reviewed and unchanged MEDICATIONS REVIEWED: Yes PATIENT RELEVANT IMPLANT DATA REVIEWED: Not Applicable CREATININE: Creatinine Date Value Ref Range Status 02/08/2023 0.97 0.73 - 1.22 mg/dL Final Creatinine (POCT) Date Value Ref Range Status 09/13/2023 1.00 0.7 - 1.4 mg/dL Final 05/17/2023 1.00 0.6 - 1.3 mg/dL Final eGFR (POCT) Date Value Ref Range Status 09/13/2023 >60 mL/min/1.73 m2 Final eGFR- Date Value Ref Range Status 07/01/2021 >60 Final P.O.C.T. RESULTS: N/A September 13, [address] PERFORMED: No IV SITE: Ambulatory: A peripheral IV was started in the Left antecubital site with a Angio cath: 20 gauge. POST EXAM PIV STATUS: Discontinued PROCEDURE TYPE: NM Stress: 12.1 mCi [id number] was administered IV for Rest Imaging at 0954 by Felicita Yepez [facility]. 28.8 mCi [id number] was administered IV for Stress Imaging at 10:55 by ap. ADMINISTRATION TIME: PATIENT DISCHARGED TO: Ambulatory patient, left [place] department area. A Diagnostic radioactive procedure has taken place, with no further precautions necessary other than routine body substance precautions. More information regarding radiation safety can be found using this link: [email or web address] 20Diagnostic%20Nuclear%20Medicine% 20Procedures.pdf SIGNATURE: RT Bernadine(R) PATIENT NAME: Joseph Dunham DATE: September 13, 2023 TIME: 9:57 AM PAGER/CONTACT #: [facility] 09-13-2023 Note HNO ID: [id number] Author: TAMMY DEXTER RN Service: ? Author Type: Registered Nurse Type: Progress Notes Filed: 09/13/2023 10:56 Note Text: RADIOLOGY SERVICE PROGRESS NOTE SERVICE DATE: 09/13/2023 SERVICE TIME: 10:49 AM PATIENT IDENTITY VERIFICATION COMPLETED USING TWO (2) STANDARD IDENTIFIERS: Name and Date of confirmed by patient verbally and Name and Date of confirmed by identification band PATIENT GENDER DATA: male ALLERGIES: Reviewed and unchanged MEDICATIONS REVIEWED BY: Flight Attendant/Inflight Manager PROCEDURE TYPE: NM STRESS: 0.4 mg of Lexiscan was administered IV at 1055 by Tammy Dexter RN. Reversal agent used: None. IV SITE: Ambulatory: A peripheral IV was started in the Left antecubital site with a Angio cath: 20 gauge. and A Saline lock was inserted per protocol POST EXAM PIV STATUS: Discontinued PATIENT DISCHARGED TO: Ambulatory patient, left [place] department area. A Diagnostic radioactive procedure has taken place, with no further precautions necessary other than routine body substance precautions. More information regarding radiation safety can be found using this link: [email or web address] [email or web address] 20Diagnostic%20Nuclear%20Medicine% 20Procedures.pdf SIGNATURE: Tammy Dexter RN PATIENT NAME: Joseph Dunham DATE: September 13, 2023 TIME: 10:49 AM PAGER/CONTACT #: [facility] 09-13-2023 Note HNO ID: [id number] Author: MERCEDES MARTIN RT(R) Service: Radiology Author Type: Technologist Type: Progress Notes Filed: 09/13/2023 09:29 Note Text: Radiology Service Progress Note PATIENT NAME: Joseph Dunham DATE OF SERVICE: September 13, 2023 TIME: 9:20 AM PATIENT IDENTITY VERIFICATION COMPLETED USING TWO (2) IDENTIFIERS: Name and Date of confirmed by patient verbally and Name and Date of confirmed by identification band. FALL SCREENING: Has the patient had 2 falls in the last year or 1 fall with injury or currently using an Ambulatory Assistive Device (Walker, Cane, Wheelchair, Crutches, etc.)? No PATIENT GENDER DATA: Male PATIENT RELEVANT IMPLANT DATA REVIEWED: Yes RADIOLOGY DEPARTMENT: CT; Exam(s) Completed: Cardiac PERIPHERAL IV DATA: Site assessment: Clean,Dry and Intact, Site disposition Discontinued SIGNED BY: RT Alfred(R) September 13, 2023 9:20 AM [facility] 09-13-2023 Note HNO ID: [id number] Author: EDITA CONTRERAS RN Service: Nursing Author Type: Registered Nurse Type: Progress Notes Filed: 09/13/2023 09:13 Note Text: Radiology Service Progress Note DATE OF SERVICE: September 13, 2023 TIME: 9:00 AM PATIENT WEIGHT: 235 LBS PATIENT IDENTITY VERIFICATION COMPLETED USING TWO (2) STANDARD IDENTIFIERS: Name and Date of confirmed by patient verbally. FALL SCREENING: Has the patient had 2 falls in the last year or 1 fall with injury or currently using an Ambulatory Assistive Device (Walker, Cane, Wheelchair, Crutches, etc.)? No PATIENT GENDER DATA: Male ALLERGIES: Reviewed and unchanged CONTRAST ALLERGY: No EXAM: CT -CONTRAST INDUCED NEPHROPATHY RISK FACTORS: Patient age > 60 years CREATININE: Creatinine Date Value Ref Range Status 02/08/2023 0.97 0.73 - 1.22 mg/dL Final Creatinine (POCT) Date Value Ref Range Status 09/13/2023 1.00 0.7 - 1.4 mg/dL Final 05/17/2023 1.00 0.6 - 1.3 mg/dL Final eGFR (POCT) Date Value Ref Range Status 09/13/2023 >60 mL/min/1.73 m2 Final eGFR- Date Value Ref Range Status 07/01/2021 >60 Final P.O.C.T. RESULTS: POC done: Yes, See Lab Tab September 13, 2023 TREATMENT: No Hydration needed. IV SITE: Ambulatory: A peripheral IV was started in the Right antecubital site with a Angio cath: 20 gauge. and A Saline lock was inserted per protocol IV SITE APPEARANCE: Clean,Dry and Intact SIGNATURE: Edita Contreras RN PATIENT NAME: Joseph Dunham DATE: September 13, 2023 TIME: 9:00 AM [facility] 09-13-2023 Note HNO ID: [id number] Author: KIMBERLY HAHN RT(R) Service: Radiology Author Type: Technologist Type: Progress Notes Filed: 09/13/2023 08:23 Note Text: Radiology Service Progress Note PATIENT NAME: Joseph Dunham DATE OF SERVICE: September 13, 2023 TIME: 8:23 AM PATIENT IDENTITY VERIFICATION COMPLETED USING TWO (2) IDENTIFIERS: Name and Date of confirmed by patient verbally. FALL SCREENING: Has the patient had 2 falls in the last year or 1 fall with injury or currently using an Ambulatory Assistive Device (Walker, Cane, Wheelchair, Crutches, etc.)? No PATIENT GENDER DATA: Male PATIENT RELEVANT IMPLANT DATA REVIEWED: Not Applicable RADIOLOGY DEPARTMENT: General X-ray: Exam(s) Completed: Chest X-Ray PERIPHERAL IV DATA: Not applicable SIGNED BY: Kimberly Hahn, RT(R) September 13, 2023 8:23 AM [facility] 09-12-2023 Note HNO ID: [id number] Author: DELORIS ALEXANDER MD Service: ? Author Type: Physician Type: Progress Notes Filed: 09/12/2023 19:46 Note Text: PRIMARY CARE PHYSICIAN: Kenneth Noland [address] [place] [address] Patient Care Team: Kenneth Noland V, DO as PCP - General (Family Medicine) Deloris Alexander MD as Specialty Punch Machine Operator (Cardiology) Jo Mcdonald PA as Physician District Manager Primary Care Sales (Pulmonary and Critical Care Medicine) Andrea Mosley MD as Surgeon (Cardiac Surg) Ki Andrews MD as Specialty Punch Machine Operator (Cardiology) CHIEF COMPLAINT: Follow up for arrhythmia HISTORY OF PRESENT ILLNESS: Mr. Dunham is a 83 year old male who presents today for a cardiovascular medicine follow-up visit. Interim History Dr. Alexander 09/12/2023: Mr. Dunham presents for follow up evaluation for atrial fibrillation. He has a very long history of symptomatic arrhythmia, possibly for the past 20 years. At some point he was diagnosed with atrial fibrillation, and it was refractory to antiarrhythmic drug therapy including amiodarone in January 2020. He underwent atrial fibrillation catheter ablation (balloon catheter cryoablation) in April 2020. He developed recurrent atrial fibrillation in 2020, underwent electrical cardioversion at that time. The arrhythmia recurred in early 2021, he underwent electrical cardioversions in October, January and April 2022. He then underwent repeat atrial fibrillation catheter ablation in May 2022, this time RF technology. He again developed recurrence of the atrial fibrillation, symptomatic. He underwent electrical cardioversion in July 2022. He underwent another RF catheter ablation for the atrial fibrillation in February 2023. He states he experienced recurrences of the atrial fibrillation, about 6 months after ablation was having recurrent arrhythmia. He states he was treated with amiodarone about a month ago, just recently underwent electrical cardioversion 09/07/2023. Since then feeling ok, feels quite a bit better in sinus rhythm. No bleeding issues. He states he has checked into having a hybrid ablation procedure at [facility], and in fact has anappointment for testing/evaluation 09/13/[address] Mosley the next day 09/14/2023. I have confirmed and edited as necessary, the PFSH and ROS obtained by others. PAST MEDICAL HISTORY Diagnosis Date Allergic rhinitis, cause unspecified Allergic rhinitis Anticoagulant long-term use indication: stroke prevention atrial fibrillation Asymptomatic varicose veins Varicose veins At risk for stroke Atherosclerosis of iliamna coronary artery without angina pectoris Coronary artery disease MILD Dyspepsia and other specified disorders of function of stomach Dyspepsia Essential hypertension Hypothyroidism watermaster current use of antiarrhythmic drug amiodarone since [...] atrial fibrillation catheter ablation: balloon catheter cryoablation/PVAI 04/28/2020, RF catheter ablation/PVAI 05/2022, 02/2023 PAST SURGICAL HISTORY Procedure Laterality Date AFIB ABLATION/PULM VEIN ISOLATION 04/28/2020 atrial fibrillation catheter ablation: balloon catheter cryoablation/PVAI; [facility] Dr. Alexander AFIB ABLATION/PULM VEIN ISOLATION 05/23/2022 redo atrial fibrillation catheter ablation/PVAI (RF/Carto/Stereotaxis); no inducible SVT/AT/Aflutter; multifocal RA and LA PACs with isoproterenol, nothing consistent; [facility] Dr. Alexander AFIB ABLATION/PULM VEIN ISOLATION 02/07/2023 redo atrial fibrillation/PVAI including anterior region of right PVs, GIL, SVC/RA junction; [facility] Dr. Alexander CARDIAC CATH 06/21/2016 nonobstructive CAD CARDIOVERSION, ELECTIVE, ELECTRICAL 07/01/2021 successful druze of sinus rhythm from atrial fibrillation; [facility] Dr. Alexander CARDIOVERSION, ELECTIVE, ELECTRICAL 01/12/2022 CARDIOVERSION, ELECTIVE, ELECTRICAL 04/04/2022 CARDIOVERSION, ELECTIVE, ELECTRICAL 07/24/2022 [facility] CARDIOVERSION, ELECTIVE, ELECTRICAL 09/07/2023 [facility] CARDIOVERSION, ELECTRIC (more content not included)... [facility] 08-17-2023 Miscellaneous Notes Pt's name has been added to girard procedure board. Saira Carson RN Patient is scheduled for a Cardioversion on 09/06/[address] Alexander. The hospital will call the day before between 2-5pm with your arrival time. You should not eat or drink after midnight the day before the procedure. You will need a gravel truck driver when released from the hospital. You should continue to take medications as prescribed the morning of the procedure with just a sip of water unless otherwise instructed. H&P morning of Spoke with Joseph Dunham on August 17, 2023. Informed of instructions as stated above. Patient verbalized understanding. Evita Avina documented in this encounter [facility] 08-17-2023 Miscellaneous Notes Evaluation Only; [...] office for scheduling. Please call pt at [phone]. Patient Registration: Registration complete/updated: yes Insurance card(s) scanned in [employer] with in the past year: Yes: Date: March 2023 Pt's [employer] is active. Ok to communicate to pt via [employer] yes Medical Records: Records in [employer] (internal [facility] records): Yes Imaging in [facility] (internal [facility] records): Yes Care Everywhere - queried yes, downloaded Yes Linked Outside Organizations (list): Additional providers added to Care Teams: Yes Additional Notes/Comments: Enct routed to: Yes, Cardiac NPM for triage Tania Aly documented in this encounter [facility] 07-16-2023 Miscellaneous Notes Spoke with Mr. Suarez about recommendations. Patient voiced understanding and will monitor for next few days and call back to get cardioversion if necessary for A-fib. Jaki Ambriz LPN [facility] [place] General Electrophysiology (EP) If he remains in [...] Jaki Ambriz LPN documented in this encounter [facility] 05-25-2023 Note HNO ID: [id number] Author: Kenneth Noland V DO Service: ? Author Type: Physician Type: Progress Notes Filed: 05/25/2023 11:02 AM Note Text: Patient presents with: right shoulder: Pain in right shoulder - here for an injection HPI: Joseph is a 82 year old male right-hand [...] TWICE A DAY FOR 2 WEEKS Ipratropium [place] (ATROVENT) 21 mcg (0.03 %) nasal spray Use 1 [place] in the nose as needed. nitroglycerin sublingual [...] veins Varicose veins At risk for stroke [id number] = 4 (HTN, age2, CAD) Atherosclerosis of iliamna coronary artery without angina pectoris Coronary artery disease MILD Dyspepsia and other specified disorders of function of stomach Dyspepsia Essential hypertension Hypothyroidism watermaster current use of antiarrhythmic drug amiodarone since about 01/2020; indication: Symptomatic atrial fibrillation Mixed hyperlipidemia Hyperlipidemia Other symptoms involving digestive system(857.99) PAC (premature atrial contraction) Palpitations Paroxysmal atrial [...] and LA PACs with isoproterenol, nothing consistent; [facility] Dr. Alexander AFIB ABLATION/PULM VEIN ISOLATION 02/07/2023 redo atrial fibrillation/PVAI including anterior region of right PVs, GIL, SVC/RA junction; [facility] Dr. Alexander CARDIAC CATH 06/21/2016 nonobs (more content not included)... [facility] 05-25-2023 Note HNO ID: [id number] Author: Deanna Barrett RN Service: ? Author [...] Comments: Patient states pain is getting worse [facility] 05-25-2023 History of Present illness Narrative Associated Order(s): Large Joint Arthro/Inj: R subacromial bursa Post-Procedure Diagnose(s): Disorder of rotator cuff, right Patient presents with: right shoulder: Pain in right shoulder - here for an injection HPI: Joseph is a 82 year old male right-hand [...] TWICE A DAY FOR 2 WEEKS Ipratropium [place] (ATROVENT) 21 mcg (0.03 %) nasal spray Use 1 [place] in the nose as needed. nitroglycerin sublingual [...] veins Varicose veins At risk for stroke [id number] = 4 (HTN, age2, CAD) Atherosclerosis of iliamna coronary artery without angina pectoris Coronary artery disease MILD Dyspepsia and other specified disorders of function of stomach Dyspepsia Essential hypertension Hypothyroidism watermaster current use of antiarrhythmic drug amiodarone since [...] region of right PVs, GIL, SVC/RA junction; [facility] Dr. Alexander CARDIAC CATH 06/21/2016 nonobstructive CAD CARDIOVERSION, ELECTIVE, ELECTRICAL 07/01/2021 successful druze of sinus rhythm from atrial fibrillation; [facility] Dr. Alexander CARDIOVERSION, ELECTIVE, ELECTRICAL 01/12/2022 CARDIOVERSION, ELECTIVE, ELECTRICAL 04/04/2022 CARDIOVERSION, ELECTIVE, ELECTRICAL 07/24/2022 [facility] CARDIOVERSION, ELECTRIC 10/18/2021 [place] COLONOSCOPY FLX DX W/COLLJ SPEC WHEN PFRMD 09/07/2003 Colonoscopy COLONOSCOPY W/BIOPSY SINGLE/MULTIPLE 03/13/2011 ECHOCARDIOGRAM 07/15/2018 LVEF 60% ECHOCARDIOGRAM 08/03/2020 ECHOCARDIOGRAM 10/17/2021 [place], [place] HOLTER MONITOR 48 HOUR 01/2019 PAST [...] subacromial bursa Informed Consent Consent Obtained: Verbal [place] Protocol SIGN IN TIME OUT 05/25/2023 11:01 [...] is getting worse documented in this encounter [facility] 05-17-2023 Note HNO ID: [id number] Author: Veena Sanford Flight Attendant/Inflight Manager Service: ? Author Type: Flight Attendant/Inflight Manager Type: Nursing Progress Note Filed: 05/17/2023 2:36 PM Note Text: Holter monitor applied. Pt verbalized understanding of monitor use / diary. [facility] 05-17-2023 Note HNO ID: [id number] Author: Kimberly Prado APRN.CNP Service: ? Author Type: Nurse Practitioner Type: Progress Notes Filed: 05/17/2023 3:33 PM Note Text: [facility] [place] Cardiology Electrophysiology PRIMARY CARE PHYSICIAN: Kenneth Noland [address] [place] [address] CHIEF COMPLAINT: Cardiovascular medicine follow up for arrhythmia. HISTORY OF PRESENT ILLNESS: Mr. Dunham is a 82 year old male who presents today for follow-up regarding arrhythmia. History copied from previous notes, edited as needed: Dr. Alexander's note 03/08/20: Mr. Dunham is a 79 year old male who presents today for evaluation of atrial fibrillation, referral from his tuft machine operator Dr. Amaro. Mr. Dunham states that he [...] through TTM to the device clinic at [facility] and consistently showed sinus rhythm. 3 month [...] or syncope. Interval History 09/20/2021 Florence Prado BASKETBALL REFEREE: The patient called in a few days after his last appointment and reported being in atrial fibrillation, was confirmed by EKG, he underwent direct-current cardioversion with Dr. Alexander on 07/01/2021 with druze of sinus rhythm. He reports he has [...] history Dr. Zabala (more content not included)... [facility] 05-17-2023 Nurse Note Holter monitor applied. Pt verbalized understanding of monitor use / diary. IV in place from CT per pt, flushes easily. DCd intact post echo. Definity given IVP per protocol for echo image enhancement. Pt tolerated well. No signs of infiltration. documented in this encounter [facility] 05-17-2023 Instructions Kimberly Prado APRN.BASKETBALL REFEREE - 05/17/2023 1:55 PM EDT Atrial Fibrillation [...] healthcare provider's instructions for treatment. Copyright 2014 [employer] and/or one of its subsidiaries. All rights reserved. documented in this encounter [facility] 05-17-2023 Nurse Note No cardiac concerns today documented in this encounter [facility] 05-17-2023 History of Present illness Narrative Images from the original note were not included. [facility] General Cardiology Electrophysiology PRIMARY CARE PHYSICIAN: Kenneth Noland [address] [place] [address] CHIEF COMPLAINT: Cardiovascular medicine follow up for arrhythmia. HISTORY OF PRESENT ILLNESS: Mr. Dunham is a 82 year old male who presents today for follow-up regarding arrhythmia. History copied from previous notes, edited as needed: Dr. Alexander's note 03/08/20: Mr. Dunham is a 79 year old male who presents today for evaluation of atrial fibrillation, referral from his tuft machine operator Dr. Amaro. Mr. Dunham states that he [...] through TTM to the device clinic at [facility] and consistently showed sinus rhythm. 3 month [...] or syncope. Interval History 09/20/2021 Florence Prado BASKETBALL REFEREE: The patient called in a few days after his last appointment and reported being in atrial fibrillation, was confirmed by EKG, he underwent direct-current cardioversion with Dr. Alexander on 07/01/2021 with druze of sinus rhythm. He reports he has [...] symptomatic arrhythmia. He states he was in [place] vacationing and visiting family. He states that [...] When the episode of arrhythmia occurred in [place] a few weeks ago, he was admitted to a [place] hospital, underwent treatment including an electrical cardioversion to restore sinus rhythm on 10/18/2021. Mr. Dunham states that the tuft machine operator in [place] mentioned possible treatment with an antiarrhythmic drug --- specifically mentioned Tikosyn --- but wanted to leave that to my discretion when Mr. Dunham returned to [place] from [place]. Presently, Mr. Dunham feels that he is back to his baseline, feels ok. Additional History 02/22/2022 Florence Prado BASKETBALL REFEREE: The patient had atrial fibrillation recurrence, presented to [facility] ED in January and was cardioverted on 01/12/2022 with druze of sinus rhythm. He then followed up with TIA Kevin at his cardiology office who recommended he follow-up to further discuss antiarrhythmic drug therapy versus repeat catheter ablation. Mr. Dunham again presented to [place] ED 01/30/2022 with highly symptomatic atrial fibrillation, underwent cardioversion with druze of sinus rhythm. He reports heart rhythm [...] fibrillation in July, underwent electrical cardioversion at [facility] 07/24/2022. Since that time he states he has done well, not aware of recurrent arrhythmia. He denies chest pain, shortness of breath, orthopnea, palpitations, PND, lightheadedness or syncope. Additional History Evaristo George CNP 09/27/2022: Joseph is a pleasant 82-year-old gentleman who presents today for persistent atrial fibrillation. Overall patient reports he has been feeling decent. He does indicate he was recently in the ED in [place] and was found to be in A. [...] and his are planning on leaving for [place] in the coming days. 24-hour Holter monitor from 08/31 showed normal sinus rhythm with a ventricular rate of 63 with a range of 53-84. Several brief episodes of SVT also noted. Advised patient I will send in a year supply of Cardizem to his preferred pharmacy. Patient agreeable to follow-up in 3 months. Additional history Evaristo George CNP 11/10/2022: Joseph is a pleasant 82-year-old gentleman who presents today for follow-up regarding history of persistent atrial fibrillation. Patient reports he was previously cardioverted in the emergency department at [facility] in September. Twelve-lead performed in office today [...] and Cardizem to his preferred pharmacy of [facility] in [place]. TTE performed in August 2022 revealed an [...] to PVI with Dr. Alexander on 02/07/2023. Joseph has a longstanding history of atrial fibrillation and had previously undergone PVI. Once in April 2020 and most recently in May 2022. He is a [id number] 4 secondary to age, hypertension, and CAD. [...] coming in with small sips of water. Joseph verbalized I have answered all of his [...] veins Varicose veins At risk for stroke [id number] = 4 (HTN, age2, CAD) Atherosclerosis of iliamna coronary artery without angina pectoris Coronary artery disease MILD Dyspepsia and other specified disorders of function of stomach Dyspepsia Essential hypertension Hypothyroidism long-term current use of antiarrhythmic drug amiodarone since [...] atrial fibrillation catheter ablation: balloon catheter cryoablation/PVAI; [facility] Dr. Alexander AFIB ABLATION/PULM VEIN ISOLATION 05/23/2022 redo atrial fibrillation catheter ablation/PVAI (RF/Carto/Stereotaxis); no inducible SVT/AT/Aflutter; multifocal RA and LA PACs with isoproterenol, nothing consistent; [facility] Dr. Alexander AFIB ABLATION/PULM VEIN ISOLATION 02/07/2023 redo atrial fibrillation/PVAI including anterior region of right PVs, GIL, SVC/RA junction; [facility] Dr. Alexander CARDIAC CATH 06/21/2016 nonobstructive CAD CARDIOVERSION, ELECTIVE, ELECTRICAL 07/01/2021 successful druze of sinus rhythm from atrial fibrillation; [facility] Dr. Alexander CARDIOVERSION, ELECTIVE, ELECTRICAL 01/12/2022 CARDIOVERSION, ELECTIVE, ELECTRICAL 04/04/2022 CARDIOVERSION, ELECTIVE, ELECTRICAL 07/24/2022 [facility] CARDIOVERSION, ELECTRIC 10/18/2021 [place] COLONOSCOPY FLX DX W/COLLJ SPEC WHEN PFRMD 09/07/2003 Colonoscopy COLONOSCOPY W/BIOPSY SINGLE/MULTIPLE 03/13/2011 ECHOCARDIOGRAM 07/15/2018 LVEF 60% ECHOCARDIOGRAM 08/03/2020 ECHOCARDIOGRAM 10/17/2021 [place], [place] HOLTER MONITOR 48 HOUR 01/2019 PAST [...] as needed for muscle spasm.^Disp: ^Rfl: Ipratropium [place] (ATROVENT) 21 mcg (0.03 %) nasal spray^Use 1 [place] in the nose as needed.^Disp: ^Rfl: nitroglycerin [...] - Exam was compared with the prior [facility] echocardiographic exam performed on 08/03/2020. Echocardiogram: 08/03/2020 [...] PACs, left axis deviation, RBBB, 61 bpm, AK 162 ms, QRS 138 ms, QT/QTc 468/471 [...] in [address] Alexander or TIA, or call sooner should any issues arise, [...] mg twice daily. 6. Current use of intermediate manager anticoagulation - ICD9: V58.61, ICD10: Z79.01 7. At risk for stroke - ICD9: V15.89, ICD10: Z91.89 -persistent atrial fibrillation/flutter, continue Xarelto 20 mg daily, no signs of bleeding. CHADS2-Vasc Score Breakdown 4 Total Score 2 Age >= 75 years old 1 History of hypertension 1 History of vascular disease Return in about 3 months (around 08/16/2023) for Dr. Alexander or TIA. Kimberly Prado APRN.CNP Medical Decision Making: Problems: [...] correct any errors. documented in this encounter [facility] 05-11-2023 Note HNO ID: [id number] Author: Ludin, Kenneth, V, DO Service: ? Author Type: Physician [...] veins Varicose veins At risk for stroke [id number] = 4 (HTN, age2, CAD) Atherosclerosis of iliamna coronary artery without angina pectoris Coronary artery disease MILD Dyspepsia and other specified disorders of function of stomach Dyspepsia Essential hypertension Hypothyroidism long-term current use of antiarrhythmic drug amiodarone since [...] and LA PACs with isoproterenol, nothing consistent; [facility] Dr. Alexander AFIB ABLATION/PULM VEIN ISOLATION 02/07/2023 redo atrial fibrillation/PVAI including anterior region of right PVs, GIL, SVC/RA junction; [facility] Dr. Alexander CARDIAC CATH 06/21/2016 nonobstructive CAD CARDIOVERSION, ELECTIVE, ELECTRICAL 07/01/2021 successful druze of sinus rhythm from atrial fibrillation; [facility] Dr. Alexander CARDIOVERSION, ELECTIVE, ELECTRICAL 01/12/2022 CARDIOVERSION, ELECTIVE, ELECTRICAL 04/04/2022 CARDIOVERSION, ELECTIVE, ELECTRICAL 07/24/2022 [facility] CARDIOVERSION, ELECTRIC 10/18/2021 [place] COLONOSCOPY FLX DX W/COLLJ SPEC WHEN PFRMD 09/07/2003 Colonoscopy COLONOSCOPY W/BIOPSY SINGLE/MULTIPLE 03/13/2011 ECHOCARDIOGRAM 07/15/2018 LVEF 60% ECHOCARDIOGRAM 08/03/2020 ECHOCARDIOGRAM 10/17/2021 [place], [place] HOLTER MONITOR 48 HOUR 01/2019 PAST [...] BOTH FOREARMS TWICE (more content not included)... [facility] 05-11-2023 Note HNO ID: [id number] Author: Mirela Rubio Ma Service: ? Author Type: ? Type: Progress Notes Filed: 05/11/2023 3:01 PM Note Text: AMB ROOMING INTAKE FLOWSHEET DATA Pain Pain Level: 2 Pain Location: (right knee and right shoulder) Description: Aching Duration Amount of Time: (ongoing) Frequency: Intermittent Intervention/Comfort measure: Other: See comment (none) [facility] 05-11-2023 History of Present illness Narrative FRACTURE [...] veins Varicose veins At risk for stroke [id number] = 4 (HTN, age2, CAD) Atherosclerosis of iliamna coronary artery without angina pectoris Coronary artery disease MILD Dyspepsia and other specified disorders of function of stomach Dyspepsia Essential hypertension Hypothyroidism watermaster current use of antiarrhythmic drug amiodarone since [...] atrial fibrillation catheter ablation: balloon catheter cryoablation/PVAI; [facility] Dr. Alexander AFIB ABLATION/PULM VEIN ISOLATION 05/23/2022 redo atrial fibrillation catheter ablation/PVAI (RF/Carto/Stereotaxis); no inducible SVT/AT/Aflutter; multifocal RA and LA PACs with isoproterenol, nothing consistent; [facility] Dr. Alexander AFIB ABLATION/PULM VEIN ISOLATION 02/07/2023 redo atrial fibrillation/PVAI including anterior region of right PVs, GIL, SVC/RA junction; [facility] Dr. Alexander CARDIAC CATH 06/21/2016 nonobstructive CAD CARDIOVERSION, ELECTIVE, ELECTRICAL 07/01/2021 successful druze of sinus rhythm from atrial fibrillation; [facility] Dr. Alexander CARDIOVERSION, ELECTIVE, ELECTRICAL 01/12/2022 CARDIOVERSION, ELECTIVE, ELECTRICAL 04/04/2022 CARDIOVERSION, ELECTIVE, ELECTRICAL 07/24/2022 [facility] CARDIOVERSION, ELECTRIC 10/18/2021 [place] COLONOSCOPY FLX DX W/COLLJ SPEC WHEN PFRMD 09/07/2003 Colonoscopy COLONOSCOPY W/BIOPSY SINGLE/MULTIPLE 03/13/2011 ECHOCARDIOGRAM 07/15/2018 LVEF 60% ECHOCARDIOGRAM 08/03/2020 ECHOCARDIOGRAM 10/17/2021 [place] HOLTER MONITOR 48 HOUR 01/2019 PAST [...] TWICE A DAY FOR 2 WEEKS Ipratropium [place] (ATROVENT) 21 mcg (0.03 %) nasal spray Use 1 [place] in the nose as needed. aspirin, enteric [...] See comment (none) documented in this encounter [facility] 04-30-2023 Miscellaneous Notes Pt would [...] advise. Magdalene Hendrickson documented in this encounter [facility] 04-25-2023 Note HNO ID: [id number] Author: Kenneth Noland V, DO Service: ? Author Type: Physician Type: Progress Notes Filed: 04/25/2023 3:27 PM Note Text: Joseph Dunham presents with pain, swelling, painful movement, stiffness, and injury in the right knee. He was on an [place] cruise 2 weeks ago. He was going [...] veins Varicose veins At risk for stroke [id number] = 4 (HTN, age2, CAD) Atherosclerosis of iliamna coronary artery without angina pectoris Coronary artery disease MILD Dyspepsia and other specified disorders of function of stomach Dyspepsia Essential hypertension Hypothyroidism watermaster current use of antiarrhythmic drug amiodarone since [...] atrial fibrillation catheter ablation: balloon catheter cryoablation/PVAI; [facility] Dr. Alexander AFIB ABLATION/PULM VEIN ISOLATION 05/23/2022 redo atrial fibrillation catheter ablation/PVAI (RF/Carto/Stereotaxis); no inducible SVT/AT/Aflutter; multifocal RA and LA PACs with isoproterenol, nothing consistent; [facility] Dr. Alexander AFIB ABLATION/PULM VEIN ISOLATION 02/07/2023 redo atrial fibrillation/PVAI including anterior region of right PVs, GIL, SVC/RA junction; [facility] Dr. Alexander CARDIAC CATH 06/21/2016 nonobstructive CAD CARDIOVERSION, ELECTIVE, ELECTRICAL 07/01/2021 successful druze of sinus rhythm from atrial fibrillation; [facility] Dr. Alexander CARDIOVERSION, ELECTIVE, ELECTRICAL 01/12/2022 CARDIOVERSION, ELECTIVE, ELECTRICAL 04/04/2022 CARDIOVERSION, ELECTIVE, ELECTRICAL 07/24/2022 [facility] CARDIOVERSION, ELECTRIC 10/18/2021 [place] COLONOSCOPY FLX DX W/COLLJ SPEC WHEN PFRMD 09/07/2003 Colonoscopy COLONOSCOPY W/BIOPSY SINGLE/MULTIPLE 03/13/2011 ECHOCARDIOGRAM 07/15/2018 LVEF 60% ECHOCARDIOGRAM 08/03/2020 ECHOCARDIOGRAM 10/17/2021 [place] HOLTER MONITOR 48 HOUR 01/2019 PAST [...] Take 1 tab (more content not included)... [facility] 04-25-2023 Note HNO ID: [id number] Author: Mirela Rubio Ma Service: ? Author Type: ? Type: Progress Notes Filed: 04/25/2023 3:27 PM Note Text: AMB ROOMING INTAKE FLOWSHEET DATA Pain Pain Level: (unable to rate) Pain Location: Thigh-Right Description: Stiffness Duration Amount of Time: 1 Duration Units: Weeks Frequency: Continuous Intervention/Comfort measure: Other: See comment (compression) [facility] 04-25-2023 History of Present illness Narrative Joseph Dunham presents with pain, swelling, painful movement, stiffness, and injury in the right knee. He was on an [place] cruise 2 weeks ago. He was going [...] veins Varicose veins At risk for stroke [id number] = 4 (HTN, age2, CAD) Atherosclerosis of iliamna coronary artery without angina pectoris Coronary artery disease MILD Dyspepsia and other specified disorders of function of stomach Dyspepsia Essential hypertension Hypothyroidism long-term current use of antiarrhythmic drug amiodarone since [...] atrial fibrillation catheter ablation: balloon catheter cryoablation/PVAI; [facility] Dr. Alexander AFIB ABLATION/PULM VEIN ISOLATION 05/23/2022 redo atrial fibrillation catheter ablation/PVAI (RF/Carto/Stereotaxis); no inducible SVT/AT/Aflutter; multifocal RA and LA PACs with isoproterenol, nothing consistent; [facility] Dr. Alexander AFIB ABLATION/PULM VEIN ISOLATION 02/07/2023 redo atrial fibrillation/PVAI including anterior region of right PVs, GIL, SVC/RA junction; [facility] Dr. Alexander CARDIAC CATH 06/21/2016 nonobstructive CAD CARDIOVERSION, ELECTIVE, ELECTRICAL 07/01/2021 successful druze of sinus rhythm from atrial fibrillation; [facility] Dr. Alexander CARDIOVERSION, ELECTIVE, ELECTRICAL 01/12/2022 CARDIOVERSION, ELECTIVE, ELECTRICAL 04/04/2022 CARDIOVERSION, ELECTIVE, ELECTRICAL 07/24/2022 [facility] CARDIOVERSION, ELECTRIC 10/18/2021 [email or web address] COLONOSCOPY FLX DX W/COLLJ SPEC WHEN PFRMD 09/07/2003 Colonoscopy COLONOSCOPY W/BIOPSY SINGLE/MULTIPLE 03/13/2011 ECHOCARDIOGRAM 07/15/2018 LVEF 60% ECHOCARDIOGRAM 08/03/2020 ECHOCARDIOGRAM 10/17/2021 [place] HOLTER MONITOR 48 HOUR 01/2019 PAST [...] TWICE A DAY FOR 2 WEEKS Ipratropium [place] (ATROVENT) 21 mcg (0.03 %) nasal spray Use 1 [place] in the nose as needed. aspirin, enteric [...] See comment (compression) documented in this encounter [facility] 04-18-2023 Miscellaneous Notes Patient has [...] advise. Steffi Langley documented in this encounter [facility] 07-18-2023 Nurse Note No cardiac complaints today. Rissa Rodriguez MA documented in this encounter [facility] 03-16-2023 Miscellaneous Notes Please have him get an EKG. Deloris Alexander MD March 16, 2023 6:40 PM Patient called [facility] to report he feels like he is back in a-fib. Reported symptoms are palpitations, fatigue, feeling sluggish- HR 82. Patient taking Metoprolol 50 mg twice daily and diltiazem 180 mg once daily. Magdalene Morris LPN documented in this encounter [facility] 03-12-2023 Miscellaneous Notes Patient called [facility] to report he has cut the dose down of Cardizem to 180 mg once daily- heart rate is normal and no issues with palpitations . Patient taking all other cardiac medications as prescribed. Magdalene Morris LPN documented in this encounter [facility] 02-15-2023 Miscellaneous Notes Post PVAI orders pended for signature documented in this encounter [facility] 02-08-2023 Note HNO ID: [id number] Author: Anthony Cardona RN Service: Care Management Author Type: Registered Nurse Type: Care Mgt Initial Assessment Filed: 02/08/2023 10:35 AM Note Text: CARE MANAGEMENT: ASSESSMENT AND DISCHARGE PLAN SERVICE DATE: February 08, 2023 SERVICE TIME: 1035 PCP: Kenneth Noland DO Primary Contact: Extended Emergency Contact Information Primary Emergency Contact: LINH DUNHAM Mobile Relation: None Admission Status: Ambulatory Surgery Insurance Provider: ACACIA DIETRICH [facility] Needs Prior to Discharge: Needs Prior to Discharge: To Be Determined Post-Acute Discharge Plan: This patient has been screened for Care Management Transitional Planning Services. At this time, it does not appear this patient will require transition planning services. Should this change, and the patient require transition/discharge planning services during this admission, please call [phone]. Anthony Cardona RN February 08, 2023 10:35 AM SIGNATURE: Anthony Cardona RN PATIENT NAME: Joseph Duhnam DATE: February 08, 2023 TIME: 10:35 AM CONTACT #: [id number] [facility] 02-07-2023 Miscellaneous Notes Mr. Dunham would like to transfer care for general cardiology from [facility] (previously Dr. Amaro) to [facility] --- his PCP Dr. Noland had provided name Dr. Vanessa. Please assist with Mr. Dunham getting an appointment, I placed referral in [facility]. Deloris Alexander MD February 07, 2023 3:32 PM documented in this encounter [facility] 02-07-2023 Note HNO ID: [id number] Author: Gwen Grant APRN.DIRECTOR REGULATORY COMPLIANCE Service: Anesthesiology Author Type: Nurse J2Ee Java Developer Type: Anesthesia Procedure Notes Filed: 02/07/2023 9:48 AM Note Text: ANESTHESIOLOGY PROCEDURE NOTE Airway General Information Procedure Start Time/Medication Administration: 02/07/2023 9:36 AM Patient location during procedure: OR Timeout Performed Pre-procedure: timeout performed Patient identity confirmed: arm band Staffing DIRECTOR REGULATORY COMPLIANCE: Gwen Grant APRN.DIRECTOR REGULATORY COMPLIANCE Performed by: ARMEN Indications and Patient Condition [...] difficult SIGNATURE: Gwen Bee APRN.CRNA PATIENT NAME: Joseph Dunham DATE: February 07, 2023 TIME: 9:48 AM CSN: [id number] [facility] 02-02-2023 Miscellaneous Notes Patient phones requesting refills as follows: Requested Prescriptions Pending Prescriptions Disp Refills losartan (COZAAR) 100 mg tablet [Pharmacy Med Name: Losartan Potassium 100 MG Oral Tablet] 90 tablet 0 Sig: Take 1 tablet by mouth once daily Please review and advise. Agueda Webster LPN documented in this encounter [facility] 01-26-2023 Note HNO ID: [id number] Author: Kenneth Noland V DO Service: ? [...] veins Varicose veins At risk for stroke [id number] = 4 (HTN, age2, CAD) Atherosclerosis of iliamna coronary artery without angina pectoris Coronary artery disease MILD Dyspepsia and other specified disorders of function of stomach Dyspepsia Essential hypertension Hypothyroidism watermaster current use of antiarrhythmic drug amiodarone since [...] atrial fibrillation catheter ablation: balloon catheter cryoablation/PVAI; [facility] Dr. Alexander AFIB ABLATION/PULM VEIN ISOLATION 05/23/2022 redo atrial fibrillation catheter ablation/PVAI (RF/Carto/Stereotaxis); no inducible SVT/AT/Aflutter; multifocal RA and LA PACs with isoproterenol, nothing consistent; [facility] Dr. Alexander CARDIAC CATH 06/21/2016 nonobstructive CAD CARDIOVERSION, ELECTIVE, ELECTRICAL 07/01/2021 successful druze of sinus rhythm from atrial fibrillation; [facility] Dr. Alexander CARDIOVERSION, ELECTIVE, ELECTRICAL 01/12/2022 CARDIOVERSION, ELECTIVE, ELECTRICAL 04/04/2022 CARDIOVERSION, ELECTIVE, ELECTRICAL 07/24/2022 [facility] CARDIOVERSION, ELECTRIC 10/18/2021 [place] COLONOSCOPY FLX DX W/COLLJ SPEC WHEN PFRMD 09/07/2003 Colonoscopy COLONOSCOPY W/BIOPSY SINGLE/MULTIPLE 03/13/2011 ECHOCARDIOGRAM 07/15/2018 LVEF 60% ECHOCARDIOGRAM 08/03/2020 ECHOCARDIOGRAM 10/17/2021 [place], [place] HOLTER MONITOR 48 HOUR 01/2019 PAST [...] FOR 2 WEEKS (more content not included)... [facility] 01-26-2023 Note HNO ID: [id number] Author: Mirela Rubio Ma Service: ? Author Type: ? Type: Progress Notes Filed: 01/26/2023 2:19 PM Note Text: AMB ROOMING INTAKE FLOWSHEET DATA [facility] 01-18-2023 Note HNO ID: [id number] Author: Evaristo George APRN.CNP Service: ? Author Type: Nurse Practitioner Type: Progress Notes Filed: 01/18/2023 3:51 PM Note Text: [facility] General Cardiology Electrophysiology PRIMARY CARE PHYSICIAN: Kenneth Noland [address] [place] [address] CHIEF COMPLAINT: History and physical update prior to PVI with Dr. Alexander on 02/07/2023. HISTORY OF PRESENT ILLNESS (copied from my previous office note on 11/10/2022): Joseph is a pleasant 82-year-old gentleman who presents today for follow-up regarding history of persistent atrial fibrillation. Patient reports he was previously cardioverted in the emergency department at [facility] in September. Twelve-lead performed in office today [...] and Cardizem to his preferred pharmacy of [facility] in [place]. TTE performed in August 2022 revealed an [...] to PVI with Dr. Alexander on 02/07/2023. Joseph has a longstanding history of atrial fibrillation and had previously undergone PVI. Once in April 2020 and most recently in May 2022. He is a [id number] 4 secondary to age, hypertension, and CAD. [...] coming in with small sips of water. Joseph verbalized I have answered all of his questions and he would like to move forward with PVI. PAST MEDICAL HISTORY Diagnosis Date Allergic rhinitis, cause unspecified Allergic rhinitis Anticoagulant long-term use rivaroxaban (Xarelto); indication: stroke prevention atrial fibrillation Asymptomatic varicose veins Varicose veins At risk for stroke [id number] = 4 (HTN, age2, CAD) Atherosclerosis of iliamna coronary artery without angina pectoris Coronary artery disease MILD Dyspepsia and other specified disorders of function of stomach Dyspepsia Essential hypertension Hypothyroidism long-term current use of antiarrhythmic drug amiodarone since [...] PVC (premature ventricul (more content not included)... [facility] 01-01-2023 Miscellaneous Notes Verified name and [...] Kimberly Saleh LPN documented in this encounter [facility] 12-29-2022 Miscellaneous Notes Pt's name has been added to girard procedure board. Saira Carson RN Patient is scheduled for a PVI Ablation on 01/[address] Alexander. The hospital will call the day before between 2-5pm with your arrival time. You should not eat or drink after midnight the day before the procedure. You will need a gravel truck driver when released from the hospital and you will stay overnight for observation. You should continue to take medications as prescribed the morning of the procedure with just a sip of water unless otherwise instructed. H&P update on 01/18 at 3pm with Evaristo George [address] [facility] [address] [place] [address] Spoke with patient and he verbalized understanding of all instructions Evita Avina documented in this encounter [facility] 11-25-2022 Miscellaneous Notes Contacted Mr. [...] strategy is more likely to result in retirement success than antiarrhythmic drug therapy, and would [...] 2022 6:59 PM documented in this encounter [facility] 11-23-2022 Miscellaneous Notes Images from the original note were not included. Spoke with patient and notified of Evaristo's message and recommendations. Patient will decrease the metoprolol 50 mg orally twice per day and continue the other medications as prescribed. Patient will continue other medications as prescribed. Schedule for EKG in one week. RONALD Mustafa, COMMUNICATIONS MAINTAINER.JAZLYN [place] 24 minutes ago (12:28 PM) DL Per heart rate and blood pressure logs there is no evidence of heart rates in the 40s or 50s. Thanks, Evaristo George APRN.CNP November 23, 2022 12:28 PM JAMA Bermudez 28 minutes ago (12:25 PM) DL Please [...] shortly regarding treatment plan. Thanks, Evaristo George APRN.CNP November 23, 2022 12:25 PM Images from [...] and appointment with you. RONALD Mustafa APRN.JAZLYN [place]; Deloris Alexander MD; Evita Avina 1 hour ago (10:14 AM) DL I will reach out to patient personally once treatment plan moving forward is confirmed. Thanks, Evaristo George APRN.CNP November 23, 2022 10:14 AM Evaristo George APRN.JAZLYN [place]; Deloris Alexander MD; Evita Avina 1 hour [...] I requested patient send those results via [employer] or calling the office. Unfortunately I do [...] 1 to 2 months. Thanks, Evaristo George APRN.BASKETBALL REFEREE November 23, 2022 10:11 AM Patient calls [...] Magdalene Morris LPN documented in this encounter [facility] 11-16-2022 Miscellaneous Notes Patient called [facility] to give updated blood pressure and heart rate log. They are as follows: 11/11: a.m. 127/84 HR 80; p.m. 98/53 HR 64 11/12: a.m.137/89 HR 117; p.m. 110/75 HR 81 11/13: a.m. 123/85 HR 86; p.m. 09/77 HR 112 11/14: a.m. 130/82 HR 91, p.m. 115/70 HR 93 11/15: a.m. 134/78 HR 74; p.m. 113/67 HR 94 03/16: a.m. 129/78 HR 62 Magdalene Morris LPN documented in this encounter [facility] 11-10-2022 Note HNO ID: [id number] Author: Evaristo George APRN.BASKETBALL REFEREE Service: ? Author Type: Nurse Practitioner Type: Progress Notes Filed: 11/10/2022 9:40 AM Note Text: [facility] [place] General Cardiology Electrophysiology PRIMARY CARE PHYSICIAN: Kenneth Noland [address] [place] [address] CHIEF COMPLAINT: Persistent atrial fibrillation. HISTORY OF PRESENT ILLNESS (copied from my previous office note from 09/27/2022): Joseph is a pleasant 82-year-old gentleman who presents today for persistent atrial fibrillation. Overall patient reports he has been feeling decent. He does indicate he was recently in the ED in [place] and was found to be in A. [...] and his are planning on leaving for [place] in the coming days. 24-hour Holter monitor from 08/31 showed normal sinus rhythm with a ventricular rate of 63 with a range of 53-84. Several brief episodes of SVT also noted. Advised patient I will send in a year supply of Cardizem to his preferred pharmacy. Patient agreeable to follow-up in 3 months. Interval History: Joseph is a pleasant 82-year-old gentleman who presents today for follow-up regarding history of persistent atrial fibrillation. Patient reports he was previously cardioverted in the emergency department at [facility] in September. Twelve-lead performed in office today [...] and Cardizem to his preferred pharmacy of [facility] in [place]. TTE performed in August 2022 revealed an [...] veins Varicose veins At risk for stroke [id number] = 4 (HTN, age2, CAD) Atherosclerosis of iliamna coronary artery without angina pectoris Coronary artery disease MILD Dyspepsia and other specified disorders of function of stomach Dyspepsia Essential hypertension Hypothyroidism long-term current use of antiarrhythmic drug amiodarone since [...] and LA PACs with isoproterenol, nothing consistent; [facility] Dr. Alexander CARDIAC CATH 06/21/2016 nonobstructive CAD CARDIOVERSION, ELECTIVE, ELECTRICAL 07/01/2021 successful druze of sinus rhythm from atrial fibrillation; [facility] Dr. Alexander CARDIOVERSION, ELECTIVE, ELECTRICAL 01/12/2022 CARDIOVERSION, (more content not included)... [facility] 11-10-[address] Alexander, I [...] you regarding plan moving forward. Thanks, Evaristo George APRN.BASKETBALL REFEREE November 10, 2022 9:44 AM documented in this encounter [facility] 10-26-2022 Miscellaneous Notes I spoke to and informed him of 's response. He voiced understanding and was transferred to clerical for scheduling. Lu Elliott LPN Images from the original note were not included. Deloris Alexander MD You 14 hours ago (6:50 PM) Let's have him see SEMIAUTOMATIC STITCHER OPERATOR in the office. Thanks called in and states he was doing good for about a week but the elevated heart rates returned last night and he was running around 120. He is returning to [place] Sunday and asking if you would like [...] says he called and spoke with someone tactical deception plans officer this weekend and they told him to increase his carvedilol to twice daily. Since doing this he is experiencing extreme itching. He is asking if there is another medication he can take to keep his heart from racing every night. Millie Montgomery LPN documented in this encounter [facility] 10-25-2022 Miscellaneous Notes Patient called [...] you. Yamileth Rodriguez documented in this encounter [facility] 09-27-2022 Note HNO ID: [id number] Author: Evaristo George APRN.BASKETBALL REFEREE Service: ? Author Type: Nurse Practitioner Type: Progress Notes Filed: 09/27/2022 1:34 PM Note Text: [facility] General Cardiology Electrophysiology PRIMARY CARE PHYSICIAN: Kenneth Noland [address] [place] [address] CHIEF COMPLAINT: Persistent atrial fibrillation. HISTORY OF PRESENT ILLNESS (copied from Dr. Alexander's office note on 09/01/2022): Mr. Dunham presents for follow-up evaluation. He underwent redo atrial fibrillation catheter ablation 05/23/2022. He did have recurrence of atrial fibrillation in July, underwent electrical cardioversion at [facility] 07/24/2022. Since that time he states he has done well, not aware of recurrent arrhythmia. He denies chest pain, shortness of breath, orthopnea, palpitations, PND, lightheadedness or syncope. I have confirmed and edited as necessary, the PFSH and ROS obtained by others. Interval History: Jsoeph is a pleasant 82-year-old gentleman who presents today for persistent atrial fibrillation. Overall patient reports he has been feeling decent. He does indicate he was recently in the ED in [place] and was found to be in A. [...] and his are planning on leaving for [place] in the coming days. 24-hour Holter monitor [...] veins Varicose veins At risk for stroke [id number] = 4 (HTN, age2, CAD) Atherosclerosis of iliamna coronary artery without angina pectoris Coronary artery disease MILD Dyspepsia and other specified disorders of function of stomach Dyspepsia Essential hypertension Hypothyroidism watermaster current use of antiarrhythmic drug amiodarone since [...] catheter ablation: balloon catheter cryoablation/PVAI; [facility] Dr. Schweikert AFIB ABLATION/PULM VEIN ISOLATION 05/23/2022 redo atrial fibrillation catheter ablation/PVAI (RF/Carto/Stereotaxis); no inducible SVT/AT/Aflutter; multifocal RA and LA PACs with isoproterenol, nothing consistent; [facility] Dr. Alexander CARDIAC CATH 06/21/2016 nonobstructive CAD CARDIOVERSION, ELECTIVE, ELECTRICAL 07/01/2021 successful druze of sinus rhythm from atrial fibrillation; [facility] Dr. Alexander CARDIOVERSION, ELECTIVE, ELECTRICAL 01/12/2022 CARDIOVERSION, ELECTIVE, ELECTRICAL 04/04/2022 CARDIOVERSION, ELECTIVE, ELECTRICAL 07/24/2022 [facility] CARDIOVERSION, ELECTRIC 10/18/2021 [place], [place] COLONOSCOPY FLX DX W/COLLJ SPEC WHEN PFRMD 09/07/2003 Colonoscopy COLONOSCOPY W/BIOPSY SINGLE/MULTIPLE 03/13/2011 ECHOCARDIOGRAM 07/15/2018 LVEF 60% ECHOCARDIOGRAM 08/03/2020 ECHOCARDIOGRAM 10/17/2021 [place], [place] HOLTER MONITOR 48 HOUR 01/2019 PAST [...] Family History P (more content not included)... [facility] 09-27-2022 History of Present illness Narrative [facility] [place] Cardiology Electrophysiology PRIMARY CARE PHYSICIAN: Kenneth Noland [address] [place] [address] CHIEF COMPLAINT: Persistent atrial fibrillation. HISTORY OF PRESENT ILLNESS (copied from Dr. Alexander's office note on 09/01/2022): Mr. Dunham presents for follow-up evaluation. He underwent redo atrial fibrillation catheter ablation 05/23/2022. He did have recurrence of atrial fibrillation in July, underwent electrical cardioversion at [facility] 07/24/2022. Since that time he states he has done well, not aware of recurrent arrhythmia. He denies chest pain, shortness of breath, orthopnea, palpitations, PND, lightheadedness or syncope. I have confirmed and edited as necessary, the PFSH and ROS obtained by others. Interval History: Joseph is a pleasant 82-year-old gentleman who presents today for persistent atrial fibrillation. Overall patient reports he has been feeling decent. He does indicate he was recently in the ED in [place] and was found to be in A. [...] and his are planning on leaving for [place] in the coming days. 24-hour Holter monitor [...] veins Varicose veins At risk for stroke [id number] = 4 (HTN, age2, CAD) Atherosclerosis of iliamna coronary artery without angina pectoris Coronary artery disease MILD Dyspepsia and other specified disorders of function of stomach Dyspepsia Essential hypertension Hypothyroidism long-term current use of antiarrhythmic drug amiodarone since [...] atrial fibrillation catheter ablation: balloon catheter cryoablation/PVAI; [facility] Dr. Alexander AFIB ABLATION/PULM VEIN ISOLATION 05/23/2022 redo atrial fibrillation catheter ablation/PVAI (RF/Carto/Stereotaxis); no inducible SVT/AT/Aflutter; multifocal RA and LA PACs with isoproterenol, nothing consistent; [facility] Dr. Alexander CARDIAC CATH 06/21/2016 nonobstructive CAD CARDIOVERSION, ELECTIVE, ELECTRICAL 07/01/2021 successful druze of sinus rhythm from atrial fibrillation; [facility] Dr. Alexander CARDIOVERSION, ELECTIVE, ELECTRICAL 01/12/2022 CARDIOVERSION, ELECTIVE, ELECTRICAL 04/04/2022 CARDIOVERSION, ELECTIVE, ELECTRICAL 07/24/2022 [facility] CARDIOVERSION, ELECTRIC 10/18/2021 [place] COLONOSCOPY FLX DX W/COLLJ SPEC WHEN PFRMD 09/07/2003 Colonoscopy COLONOSCOPY W/BIOPSY SINGLE/MULTIPLE 03/13/2011 ECHOCARDIOGRAM 07/15/2018 LVEF 60% ECHOCARDIOGRAM 08/03/2020 ECHOCARDIOGRAM 10/17/2021 [place], [place] HOLTER MONITOR 48 HOUR 01/2019 PAST [...] Dr Amaro's order after being seen at [facility]. montelukast (SINGULAIR) 10 mg tablet TAKE 1 [...] TWICE A DAY FOR 2 WEEKS Ipratropium [place] (ATROVENT) 21 mcg (0.03 %) nasal spray Use 1 [place] in the nose as needed. nitroglycerin sublingual [...] most recent being in July 2022 at [facility]. Current treatment regimen includes diltiazem IR 60 mg twice daily, Lopressor 50 mg twice daily, and Xarelto 20 mg daily. [id number] of 4 secondary to age, CAD, and [...] Remains anticoagulated on Xarelto 20 mg daily. [id number] of 4 secondary to age, hypertension, and CAD. Return in about 3 months (around 12/26/2022) for Follow up with Dr. Alexander. . Evaristo George APRN.BASKETBALL REFEREE documented in this encounter [facility] 09-27-2022 Nurse Note NO CARDIAC CONCERNS TODAY. PT DOES REPORT SOME TACHYCARDIA LAST NIGHT AND BACK PAIN TODAY IN THE SHOULDER AREA documented in this encounter [facility] 09-11-2022 History of Present illness Narrative Radiology Service Progress Note PATIENT NAME: Joseph Dunham DATE OF SERVICE: September 11, 2022 [...] 2022 9:24 AM documented in this encounter [facility] 09-08-2022 Miscellaneous Notes Pt called [...] mouth once daily. documented in this encounter [facility] 09-05-2022 Miscellaneous Notes Patient called [facility] to report that he was seen in [place] ER on 09/01/2022 due to heart rate being elevated. Patient asking if ER notes can be reviewed. Any recommendations? Magdalene Morris LPN documented in this encounter [facility] 09-01-2022 Nurse Note No cardiac complaints today. /Rissa Rodriguez MA documented in this encounter [facility] 09-01-2022 History of Present illness Narrative Images from the original note were not included. PRIMARY CARE PHYSICIAN: Kenneth Noland [address] [place] [address] Patient Care Team: Kenneth Noland V, DO as PCP - General (Family Medicine) Mainor Amaro as Specialty Punch Machine Operator (Cardiology) Deloris Alexander MD as Specialty Punch Machine Operator (Cardiology) CHIEF COMPLAINT: Follow up for arrhythmia HISTORY OF PRESENT ILLNESS: Mr. Dunham is a 82 year old male who presents today for a cardiovascular medicine follow-up visit. History copied from previous notes, edited as needed: History copied forward from Dr. Alexander's note 03/08/20: Mr. Dunham is a 79 year old male who presents today for evaluation of atrial fibrillation, referral from his tuft machine operator Dr. Amaro. Mr. Dunham states that he [...] through TTM to the device clinic at [facility] and consistently showed sinus rhythm. 3 month [...] or syncope. Interval History 09/20/2021 Florence Prado CNP: The patient called in a few days after his last appointment and reported being in atrial fibrillation, was confirmed by EKG, he underwent direct-current cardioversion with Dr. Alexander on 07/01/2021 with druze of sinus rhythm. He reports he has [...] symptomatic arrhythmia. He states he was in [place] vacationing and visiting family. He states that [...] When the episode of arrhythmia occurred in [place] a few weeks ago, he was admitted to a [place] hospital, underwent treatment including an electrical cardioversion to restore sinus rhythm on 10/18/2021. Mr. Dunham states that the tuft machine operator in [place] mentioned possible treatment with an antiarrhythmic drug --- specifically mentioned Tikosyn --- but wanted to leave that to my discretion when Mr. Dunham returned to [place] from [place]. Presently, Mr. Dunham feels that he is back to his baseline, feels ok. Interval History 02/22/2022 Florence Prado BASKETBALL REFEREE: The patient had atrial fibrillation recurrence, presented to [facility] ED in January and was cardioverted on 01/12/2022 with druze of sinus rhythm. He then followed up with TIA Kevin at his cardiology office who recommended he follow-up to further discuss antiarrhythmic drug therapy versus repeat catheter ablation. Mr. Dunham again presented to [place] ED 01/30/2022 with highly symptomatic atrial fibrillation, underwent cardioversion with druze of sinus rhythm. He reports heart rhythm [...] fibrillation in July, underwent electrical cardioversion at [facility] 07/24/2022. Since that time he states he [...] veins Varicose veins At risk for stroke [id number] = 4 (HTN, age2, CAD) Atherosclerosis of iliamna coronary artery without angina pectoris Coronary artery disease MILD Dyspepsia and other specified disorders of function of stomach Dyspepsia Essential hypertension Hypothyroidism long-term current use of antiarrhythmic drug amiodarone since [...] atrial fibrillation catheter ablation: balloon catheter cryoablation/PVAI; [facility] Dr. Alexander AFIB ABLATION/PULM VEIN ISOLATION 05/23/2022 redo atrial fibrillation catheter ablation/PVAI (RF/Carto/Stereotaxis); no inducible SVT/AT/Aflutter; multifocal RA and LA PACs with isoproterenol, nothing consistent; [facility] Dr. Alexander CARDIAC CATH 06/21/2016 nonobstructive CAD CARDIOVERSION, ELECTIVE, ELECTRICAL 07/01/2021 successful druze of sinus rhythm from atrial fibrillation; [facility] Dr. Alexander CARDIOVERSION, ELECTIVE, ELECTRICAL 01/12/2022 CARDIOVERSION, ELECTIVE, ELECTRICAL 04/04/2022 CARDIOVERSION, ELECTIVE, ELECTRICAL 07/24/2022 [facility] CARDIOVERSION, ELECTRIC 10/18/2021 [place] COLONOSCOPY FLX DX W/COLLJ SPEC WHEN PFRMD 09/07/2003 Colonoscopy COLONOSCOPY W/BIOPSY SINGLE/MULTIPLE 03/13/2011 ECHOCARDIOGRAM 07/15/2018 LVEF 60% ECHOCARDIOGRAM 08/03/2020 ECHOCARDIOGRAM 10/17/2021 [place], [place] HOLTER MONITOR 48 HOUR 01/2019 PAST [...] TWICE A DAY FOR 2 WEEKS Ipratropium [place] (ATROVENT) 21 mcg (0.03 %) nasal spray Use 1 [place] in the nose as needed. nitroglycerin sublingual [...] Electrocardiogram: Sinus rhythm 63 bpm; PACs; normal AK interval 154 ms; right bundle branch block (QRS 136 ms); QTc 464 ms I have personally reviewed the Electrocardiogram. Echocardiogram 08/31/2022: CT scan chest 08/31/2022: I spent a total of 40 minutes on the date of the service which included preparing to see the patient, [id number] patient care, completing clinical documentation, obtaining and/or [...] fibrillation in July, underwent electrical cardioversion at [facility]. Since that time he has done well. 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 Deloris Alexander MD 09/01/2022 Medical Decision Making: Problems: Moderate: 2+ stable chronic illnesses Data: Unique source(s) for external note(s) reviewed: 1 Unique test result(s) reviewed: 3+ Unique test(s) ordered: 1 Medical Decision Making Level: 4 - Moderate documented in this encounter [facility] 08-31-2022 Nurse Note 24 hour holter monitor taught and applied. Patient aware of return device to heart and vascular. documented in this encounter [facility] 08-11-2022 History of Present illness [...] back into atrial fibrillation. He went to [facility] emergency room where he was treated and [...] veins Varicose veins At risk for stroke [id number] = 4 (HTN, age2, CAD) Atherosclerosis of iliamna coronary artery without angina pectoris Coronary artery disease MILD Dyspepsia and other specified disorders of function of stomach Dyspepsia Essential hypertension Hypothyroidism long-term current use of antiarrhythmic drug amiodarone since [...] to use moist heat, Flexeril as needed Kenneth Noland DO AMB ROOMING INTAKE FLOWSHEET DATA Risk Screening Do you have concerns about personal safety or safety in the home?: No documented in this encounter [facility] 08-09-2022 Miscellaneous Notes Patient scheduled to see Dr. Les Noland this Sunday. Patient asking if Dr. Noland would refill all his prescriptions for 90 days with multiple refills. Patient uses pharmacy on file. Please advise and call patient. documented in this encounter [facility] 08-09-2022 Miscellaneous Notes Patient has [...] Alysha Kessler LPN documented in this encounter [facility] 07-26-2022 Miscellaneous Notes Patient phones requesting refills as follows: Requested Prescriptions Pending Prescriptions Disp Refills hydroCHLOROthiazide (HYDRODIURIL, ESIDRIX) 25 mg tablet 90 tablet 0 Sig: Take 1 tablet by mouth once daily. Please review and advise. Justina Spann Ma documented in this encounter [facility] 07-24-2022 Miscellaneous Notes Pt calls [...] Saira Carson RN documented in this encounter [facility] 07-10-2022 Miscellaneous Notes Patient phones requesting refills as follows: Requested Prescriptions Pending Prescriptions Disp Refills Tadalafil (CIALIS) 10 mg tablet [Pharmacy Med Name: Tadalafil 10 MG Oral Tablet] 30 tablet 0 Sig: Take 1 tablet by mouth once daily Please review and advise. Agueda Webster LPN documented in this encounter [facility] 07-10-2022 Miscellaneous Notes Patient phones requesting refills as follows: Requested Prescriptions Pending Prescriptions Disp Refills tamsulosin (FLOMAX) 0.4 mg [Pharmacy Med Name: Tamsulosin HCl 0.4 MG Oral Capsule] 90 capsule 0 Sig: Take 1 capsule by mouth once daily Please review and advise. Agueda Webster LPN documented in this encounter [facility] 06-20-2022 Miscellaneous Notes Patient phones [...] Jo Ortiz LPN documented in this encounter [facility] 06-08-2022 Miscellaneous Notes Spoke with [...] patient who was scheduled for ultrasound at [place] yesterday. [facility] called and cancelled had to have done at [facility]. Right foot pink and warm to touch. Patient indicated his right leg feels better. Would like to continue to watch and will call if there is any negative change in right leg swelling. Melina Roberts RN documented in this encounter [facility] 06-06-2022 Miscellaneous Notes Requested Prescriptions [...] Lorena Fu RN documented in this encounter [facility] 06-05-2022 Miscellaneous Notes Patient was [...] extremity venous duplex. Patient lives around the [facility] and I informed him it would be acceptable for him to have this performed down there. Patient agreeable to plan. Evaristo George APRN.JAZLYN June 05, 2022 1:45 PM documented in this encounter [facility] 06-05-2022 Nurse Note Patient here [...] Melina Roberts RN documented in this encounter [facility] 05-30-2022 Miscellaneous Notes Post PVAI orders pended for signature - office will call to schedule documented in this encounter [facility] 05-10-2022 Miscellaneous Notes Patient phones requesting refills as follows: Requested Prescriptions Pending Prescriptions Disp Refills Tadalafil (CIALIS) 10 mg tablet [Pharmacy Med Name: TADALAFIL 10MG TAB] 30 tablet 0 Sig: Take 1 tablet by mouth once daily KWABENA-05/05/22 Labs-10/18/21 NOV-none med filled 04/20/21 Please review and advise. Agueda Webster LPN documented in this encounter [facility] 05-05-2022 History of Present illness [...] veins Varicose veins At risk for stroke [id number] = 4 (HTN, age2, CAD) Atherosclerosis of iliamna coronary artery without angina pectoris Coronary artery disease MILD Dyspepsia and other specified disorders of function of stomach Dyspepsia Essential hypertension Hypothyroidism watermaster current use of antiarrhythmic drug amiodarone since [...] fibrillation catheter ablation: balloon catheter cryoablation/PVAI 04/28/2020 [facility] Current Outpatient Medications on File Prior [...] the home?: No documented in this encounter [facility] 05-02-2022 Miscellaneous Notes Patient has [...] Alysha Kessler LPN documented in this encounter [facility] 05-01-2022 Miscellaneous Notes Pt's name has been added to girard procedure board. Melina Roberts RN Patient is scheduled for a PVAI Ablation on 05/[address] Alexander. The hospital will call the day before between 2-5pm with your arrival time. Patient should not eat or drink after midnight the day before the procedure. 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 You will stay overnight for observation. Patient should continue to take medications as prescribed the morning of the procedure with just a sip of water unless otherwise instructed. Patient to have H&P done morning of procedure due to provider availability Spoke with patient and he verbalized understanding of all instructions Evita Avina documented in this encounter [facility] 04-25-2022 Miscellaneous Notes Patient has [...] Alysha Kessler LPN documented in this encounter [facility] 03-29-2022 Instructions Kenneth Noland V, DO - 03/29/2022 3:13 PM EDT Thank you for choosing the [facility] for your acute care needs. [...] physician or booking an appointment, please call [phone] or speak with any Patient Prison Guard. Hours: Sunday through Sunday 7:30 am to 7:00 pm. Sunday and Sunday: 8:00 am to 2:30 pm. documented in this encounter [facility] 03-29-2022 History of Present illness Narrative Musculoskeletal/Osteopathic Manipulation Note HPI. Joseph Dunham is a 81 year old male who presents with complaint of midthoracic back pain. Symptoms started about 2 weeks ago, coincide with onset of atrial fibrillation. He went to the emergency department at [facility] for evaluation. He was found to be in atrial fibrillation with rapid ventricular response. Rather than cardioversion it was decided to pursue rate control. He was started on medication for rate control and discharged home. He states that he is still in atrial fibrillation, has an appointment with his tuft machine operator on Sunday morning. He states that the [...] veins Varicose veins At risk for stroke [id number] = 4 (HTN, age2, CAD) Atherosclerosis of iliamna coronary artery without angina pectoris Coronary artery disease MILD Dyspepsia and other specified disorders of function of stomach Dyspepsia Essential hypertension Hypothyroidism watermaster current use of antiarrhythmic drug amiodarone since [...] atrial fibrillation catheter ablation: balloon catheter cryoablation/PVAI; [facility] Dr. Alexander CARDIAC CATH 06/21/2016 nonobstructive CAD CARDIOVERSION, ELECTIVE, ELECTRICAL 07/01/2021 successful druze of sinus rhythm from atrial fibrillation; [facility] Dr. Alexander CARDIOVERSION, ELECTIVE, ELECTRICAL 01/12/2022 CARDIOVERSION, ELECTRIC 10/18/2021 [place], [place] COLONOSCOPY FLX DX W/COLLJ SPEC WHEN PFRMD 09/07/2003 Colonoscopy COLONOSCOPY W/BIOPSY SINGLE/MULTIPLE 03/13/2011 ECHOCARDIOGRAM 07/15/2018 LVEF 60% ECHOCARDIOGRAM 08/03/2020 ECHOCARDIOGRAM 10/17/2021 [place], [place] HOLTER MONITOR 48 HOUR 01/2019 PAST [...] Edna Watts LPN documented in this encounter [facility] 02-22-2022 Instructions Kimberly Prado APRN.BASKETBALL REFEREE - 02/22/2022 1:27 PM EDT Atrial Fibrillation [...] healthcare provider's instructions for treatment. Copyright 2014 [employer] and/or one of its subsidiaries. All rights reserved. documented in this encounter [facility] 02-22-2022 History of Present illness Narrative Images from the original note were not included. [facility] [place] [facility] Electrophysiology PRIMARY CARE PHYSICIAN: Kenneth Noland [address] [place] [address] CHIEF COMPLAINT: Cardiovascular medicine follow-up for arrhythmia. HISTORY OF PRESENT ILLNESS: History copied from previous notes, edited as needed: History copied forward from Dr. Alexander's note 03/08/20: Mr. Dunham is a 79 year old male who presents today for evaluation of atrial fibrillation, referral from his tuft machine operator Dr. Amaro. Mr. Dunham states that he [...] through TTM to the device clinic at [facility] and consistently showed sinus rhythm. 3 month [...] or syncope. Interval History 09/20/2021 Florence Prado BASKETBALL REFEREE: The patient called in a few days after his last appointment and reported being in atrial fibrillation, was confirmed by EKG, he underwent direct-current cardioversion with Dr. Alexander on 07/01/2021 with druze of sinus rhythm. He reports he has [...] symptomatic arrhythmia. He states he was in [place] vacationing and visiting family. He states that [...] When the episode of arrhythmia occurred in [place] a few weeks ago, he was admitted to a [facility], underwent treatment including an electrical cardioversion to restore sinus rhythm on 10/18/2021. Mr. Dunham states that the tuft machine operator in [place] mentioned possible treatment with an antiarrhythmic drug --- specifically mentioned Tikosyn --- but wanted to leave that to my discretion when Mr. Dunham returned to [place] from [place]. Presently, Mr. Dunham feels that he is back to his baseline, feels ok. Interval History: The patient had atrial fibrillation recurrence, presented to [facility] ED in January and was cardioverted on 01/12/2022 with druze of sinus rhythm. He then followed up with TIA Kevin at his cardiology office who recommended he follow-up to further discuss antiarrhythmic drug therapy versus repeat catheter ablation. Mr. Dunham again presented to [place] ED 01/30/2022 with highly symptomatic atrial fibrillation, underwent cardioversion with druze of sinus rhythm. He reports heart rhythm [...] veins Varicose veins At risk for stroke [id number] = 4 (HTN, age2, CAD) Atherosclerosis of iliamna coronary artery without angina pectoris Coronary artery disease MILD Dyspepsia and other specified disorders of function of stomach Dyspepsia Essential hypertension Hypothyroidism watermaster current use of antiarrhythmic drug amiodarone since [...] atrial fibrillation catheter ablation: balloon catheter cryoablation/PVAI; [facility] Dr. Alexander CARDIAC CATH 06/21/2016 nonobstructive CAD CARDIOVERSION, ELECTIVE, ELECTRICAL 07/01/2021 successful druze of sinus rhythm from atrial fibrillation; [facility] Dr. Alexander CARDIOVERSION, ELECTIVE, ELECTRICAL 01/12/2022 CARDIOVERSION, ELECTRIC 10/18/2021 [place] COLONOSCOPY FLX DX W/COLLJ SPEC WHEN PFRMD 09/07/2003 Colonoscopy COLONOSCOPY W/BIOPSY SINGLE/MULTIPLE 03/13/2011 ECHOCARDIOGRAM 07/15/2018 LVEF 60% ECHOCARDIOGRAM 08/03/2020 ECHOCARDIOGRAM 10/17/2021 [place], [place] HOLTER MONITOR 48 HOUR 01/2019 PAST [...] echocardiographic exam for comparison. Echocardiogram: 10/17/2021 at [facility] in [facility] Complete echo was performed using color flow [...] bradycardia with sinus arrhythmia, RBBB, 49 bpm, AK 160 ms, QRS 138 ms, QT/QTc 502/453 [...] 20 mg daily, no signs of bleeding. [id number] score of 4 (age 2, HTN, CAD). Total time in direct patient contact = 30 min. Greater than 50% of the time was spent in counseling and/or coordination of care. Return for To be arranged following ablation procedure. Kimberly Prado APRN.BASKETBALL REFEREE The above note was partially created using a dictation recognition software. A reasonable attempt has been made to correct any errors. documented in this encounter [facility] 02-22-2022 Nurse Note No cardiac complaints today. Millie Montgomery LPN documented in this encounter [facility] 02-02-2022 Miscellaneous Notes Noted, reviewed --- he will follow up with us as scheduled. Deloris Alexander MD February 02, 2022 5:02 PM Pt reports at November Dr Alexander requested he update our office with any changes. Pt went into afib (HR 140s bpm). He went to [facility] and was cardioverted in the ER. Pt reports he continues in a SR without complaints. Pt has OV 02/22/22 with Florence Prado. Saira Carson, RN documented in this encounter [facility] 12-21-2021 Instructions Kenneth Noland V, DO - 12/21/2021 2:48 PM EDT Thank you for choosing the [facility] for your acute care needs. [...] physician or booking an appointment, please call [phone] or speak with any Patient Prison Guard. Hours: Sunday through Sunday 7:30 am to 7:00 pm. Sunday and Sunday: 8:00 am to 2:30 pm. documented in this encounter [facility] 12-21-2021 History of Present illness [...] veins Varicose veins At risk for stroke [id number] = 4 (HTN, age2, CAD) Atherosclerosis of iliamna coronary artery without angina pectoris Coronary artery disease MILD Dyspepsia and other specified disorders of function of stomach Dyspepsia Essential hypertension Hypothyroidism watermaster current use of antiarrhythmic drug amiodarone since [...] atrial fibrillation catheter ablation: balloon catheter cryoablation/PVAI; [facility] Dr. Alexander CARDIAC CATH 06/21/2016 nonobstructive CAD CARDIOVERSION, ELECTIVE, ELECTRICAL 07/01/2021 successful druze of sinus rhythm from atrial fibrillation; [facility] Dr. Alexander CARDIOVERSION, ELECTRIC 10/18/2021 [place], [place] COLONOSCOPY FLX DX W/COLLJ SPEC WHEN PFRMD 09/07/2003 Colonoscopy COLONOSCOPY W/BIOPSY SINGLE/MULTIPLE 03/13/2011 ECHOCARDIOGRAM 07/15/2018 LVEF 60% ECHOCARDIOGRAM 08/03/2020 ECHOCARDIOGRAM 10/17/2021 [place], [place] [employer] 48 HOUR 01/2019 PAST [...] See comment (compression) documented in this encounter [facility] documented as of this encounter (statuses as of 12/21/2021) [facility] History of Past illness Narrative* Problem Noted Date Resolved Date Paroxysmal atrial fibrillation 0 04/28/2020 long-term current use of antiarrhythmic drug 04/28/2020 Overview: amiodarone since about 01/2020; indication: Symptomatic atrial fibrillation watermaster current use of amiodarone 04/28/2020 Overview: Indication: Symptomatic atrial fibrillation documented as of this encounter (statuses as of 02/02/2022) [facility] History of Past illness Narrative* Problem Noted Date Resolved Date Paroxysmal atrial fibrillation 0 04/28/2020 long-term current use of antiarrhythmic drug 04/28/2020 Overview: amiodarone since about 01/2020; indication: Symptomatic atrial fibrillation long-term current use of amiodarone 04/28/2020 Overview: Indication: Symptomatic atrial fibrillation documented as of this encounter (statuses as of 02/22/2022) [facility] History of Past illness Narrative* Problem Noted Date Resolved Date Paroxysmal atrial fibrillation 0 04/28/2020 watermaster current use of antiarrhythmic drug 04/28/2020 Overview: amiodarone since about 01/2020; indication: Symptomatic atrial fibrillation long-term current use of amiodarone 04/28/2020 Overview: Indication: Symptomatic atrial fibrillation documented as of this encounter (statuses as of 03/29/2022) [facility] History of Past illness Narrative* Problem Noted Date Resolved Date Paroxysmal atrial fibrillation 0 04/28/2020 long-term current use of antiarrhythmic drug 04/28/2020 Overview: amiodarone since about 01/2020; indication: Symptomatic atrial fibrillation watermaster current use of amiodarone 04/28/2020 Overview: Indication: Symptomatic atrial fibrillation documented as of this encounter (statuses as of 04/25/2022) [facility] History of Past illness Narrative* Problem Noted Date Resolved Date Paroxysmal atrial fibrillation 0 04/28/2020 long-term current use of antiarrhythmic drug 04/28/2020 Overview: amiodarone since about 01/2020; indication: Symptomatic atrial fibrillation watermaster current use of amiodarone 04/28/2020 Overview: Indication: Symptomatic atrial fibrillation documented as of this encounter (statuses as of 05/01/2022) [facility] History of Past illness Narrative* Problem Noted Date Resolved Date Paroxysmal atrial fibrillation 0 04/28/2020 watermaster current use of antiarrhythmic drug 04/28/2020 Overview: amiodarone since about 01/2020; indication: Symptomatic atrial fibrillation long-term current use of amiodarone 04/28/2020 Overview: Indication: Symptomatic atrial fibrillation documented as of this encounter (statuses as of 05/02/2022) [facility] History of Past illness Narrative* Problem Noted Date Resolved Date Paroxysmal atrial fibrillation 0 04/28/2020 long-term current use of antiarrhythmic drug 04/28/2020 Overview: amiodarone since about 01/2020; indication: Symptomatic atrial fibrillation watermaster current use of amiodarone 04/28/2020 Overview: Indication: Symptomatic atrial fibrillation documented as of this encounter (statuses as of 05/05/2022) [facility] History of Past illness Narrative* Problem Noted Date Resolved Date Paroxysmal atrial fibrillation 0 04/28/2020 watermaster current use of antiarrhythmic drug 04/28/2020 Overview: amiodarone since about 01/2020; indication: Symptomatic atrial fibrillation long-term current use of amiodarone 04/28/2020 Overview: Indication: Symptomatic atrial fibrillation documented as of this encounter (statuses as of 05/10/2022) [facility] History of Past illness Narrative* Problem Noted Date Resolved Date Paroxysmal atrial fibrillation 0 04/28/2020 long-term current use of antiarrhythmic drug 04/28/2020 Overview: amiodarone since about 01/2020; indication: Symptomatic atrial fibrillation watermaster current use of amiodarone 04/28/2020 Overview: Indication: Symptomatic atrial fibrillation documented as of this encounter (statuses as of 2022) [facility] History of Past illness Narrative* Problem Noted Date Resolved Date Paroxysmal atrial fibrillation 0 04/28/2020 watermaster current use of antiarrhythmic drug 04/28/2020 Overview: amiodarone since about 01/2020; indication: Symptomatic atrial fibrillation long-term current use of amiodarone 04/28/2020 Overview: Indication: Symptomatic atrial fibrillation documented as of this encounter (statuses as of 2022) [facility] History of Past illness Narrative* Problem Noted Date Resolved Date Paroxysmal atrial fibrillation 0 04/28/2020 watermaster current use of antiarrhythmic drug 04/28/2020 Overview: amiodarone since about 01/2020; indication: Symptomatic atrial fibrillation watermaster current use of amiodarone 04/28/2020 Overview: Indication: Symptomatic atrial fibrillation documented as of this encounter (statuses as of 2022) [facility] History of Past illness Narrative* Problem Noted Date Resolved Date Paroxysmal atrial fibrillation 0 04/28/2020 long-term current use of antiarrhythmic drug 04/28/2020 Overview: amiodarone since about 01/2020; indication: Symptomatic atrial fibrillation long-term current use of amiodarone 04/28/2020 Overview: Indication: Symptomatic atrial fibrillation documented as of this encounter (statuses as of 06/05/2022) [facility] History of Past illness Narrative* Problem Noted Date Resolved Date Paroxysmal atrial fibrillation 0 04/28/2020 long-term current use of antiarrhythmic drug 04/28/2020 Overview: amiodarone since about 01/2020; indication: Symptomatic atrial fibrillation long-term current use of amiodarone 04/28/2020 Overview: Indication: Symptomatic atrial fibrillation documented as of this encounter (statuses as of 06/06/2022) [facility] History of Past illness Narrative* Problem Noted Date Resolved Date Paroxysmal atrial fibrillation 0 04/28/2020 watermaster current use of antiarrhythmic drug 04/28/2020 Overview: amiodarone since about 01/2020; indication: Symptomatic atrial fibrillation watermaster current use of amiodarone 04/28/2020 Overview: Indication: Symptomatic atrial fibrillation documented as of this encounter (statuses as of 06/07/2022) [facility] History of Past illness Narrative* Problem Noted Date Resolved Date Paroxysmal atrial fibrillation 0 04/28/2020 watermaster current use of antiarrhythmic drug 04/28/2020 Overview: amiodarone since about 01/2020; indication: Symptomatic atrial fibrillation watermaster current use of amiodarone 04/28/2020 Overview: Indication: Symptomatic atrial fibrillation documented as of this encounter (statuses as of 06/07/2022) [facility] History of Past illness Narrative* Problem Noted Date Resolved Date Paroxysmal atrial fibrillation 0 04/28/2020 long-term current use of antiarrhythmic drug 04/28/2020 Overview: amiodarone since about 01/2020; indication: Symptomatic atrial fibrillation long-term current use of amiodarone 04/28/2020 Overview: Indication: Symptomatic atrial fibrillation documented as of this encounter (statuses as of 06/08/2022) [facility] History of Past illness Narrative* Problem Noted Date Resolved Date Paroxysmal atrial fibrillation 0 04/28/2020 watermaster current use of antiarrhythmic drug 04/28/2020 Overview: amiodarone since about 01/2020; indication: Symptomatic atrial fibrillation long-term current use of amiodarone 04/28/2020 Overview: Indication: Symptomatic atrial fibrillation documented as of this encounter (statuses as of 06/14/2022) [facility] History of Past illness Narrative* Problem Noted Date Resolved Date Paroxysmal atrial fibrillation 0 04/28/2020 watermaster current use of antiarrhythmic drug 04/28/2020 Overview: amiodarone since about 01/2020; indication: Symptomatic atrial fibrillation long-term current use of amiodarone 04/28/2020 Overview: Indication: Symptomatic atrial fibrillation documented as of this encounter (statuses as of 06/20/2022) [facility] History of Past illness Narrative* Problem Noted Date Resolved Date Paroxysmal atrial fibrillation 0 04/28/2020 watermaster current use of antiarrhythmic drug 04/28/2020 Overview: amiodarone since about 01/2020; indication: Symptomatic atrial fibrillation long-term current use of amiodarone 04/28/2020 Overview: Indication: Symptomatic atrial fibrillation documented as of this encounter (statuses as of 06/20/2022) [facility] History of Past illness Narrative* Problem Noted Date Resolved Date Paroxysmal atrial fibrillation 0 04/28/2020 long-term current use of antiarrhythmic drug 04/28/2020 Overview: amiodarone since about 01/2020; indication: Symptomatic atrial fibrillation watermaster current use of amiodarone 04/28/2020 Overview: Indication: Symptomatic atrial fibrillation documented as of this encounter (statuses as of 06/21/2022) [facility] History of Past illness Narrative* Problem Noted Date Resolved Date Paroxysmal atrial fibrillation 0 04/28/2020 long-term current use of antiarrhythmic drug 04/28/2020 Overview: amiodarone since about 01/2020; indication: Symptomatic atrial fibrillation watermaster current use of amiodarone 04/28/2020 Overview: Indication: Symptomatic atrial fibrillation documented as of this encounter (statuses as of 06/21/2022) [facility] History of Past illness Narrative* Problem Noted Date Resolved Date Paroxysmal atrial fibrillation 0 04/28/2020 long-term current use of antiarrhythmic drug 04/28/2020 Overview: amiodarone since about 01/2020; indication: Symptomatic atrial fibrillation long-term current use of amiodarone 04/28/2020 Overview: Indication: Symptomatic atrial fibrillation documented as of this encounter (statuses as of 06/28/2022) [facility] History of Past illness Narrative* Problem Noted Date Resolved Date Paroxysmal atrial fibrillation 0 04/28/2020 watermaster current use of antiarrhythmic drug 04/28/2020 Overview: amiodarone since about 01/2020; indication: Symptomatic atrial fibrillation watermaster current use of amiodarone 04/28/2020 Overview: Indication: Symptomatic atrial fibrillation documented as of this encounter (statuses as of 07/10/2022) [facility] History of Past illness Narrative* Problem Noted Date Resolved Date Paroxysmal atrial fibrillation 0 04/28/2020 long-term current use of antiarrhythmic drug 04/28/2020 Overview: amiodarone since about 01/2020; indication: Symptomatic atrial fibrillation long-term current use of amiodarone 04/28/2020 Overview: Indication: Symptomatic atrial fibrillation documented as of this encounter (statuses as of 07/12/2022) [facility] History of Past illness Narrative* Problem Noted Date Resolved Date Paroxysmal atrial fibrillation 0 04/28/2020 long-term current use of antiarrhythmic drug 04/28/2020 Overview: amiodarone since about 01/2020; indication: Symptomatic atrial fibrillation watermaster current use of amiodarone 04/28/2020 Overview: Indication: Symptomatic atrial fibrillation documented as of this encounter (statuses as of 07/12/2022) [facility] History of Past illness Narrative* Problem Noted Date Resolved Date Paroxysmal atrial fibrillation 0 04/28/2020 long-term current use of antiarrhythmic drug 04/28/2020 Overview: amiodarone since about 01/2020; indication: Symptomatic atrial fibrillation watermaster current use of amiodarone 04/28/2020 Overview: Indication: Symptomatic atrial fibrillation documented as of this encounter (statuses as of 07/19/2022) [facility] History of Past illness Narrative* Problem Noted Date Resolved Date Paroxysmal atrial fibrillation 0 04/28/2020 watermaster current use of antiarrhythmic drug 04/28/2020 Overview: amiodarone since about 01/2020; indication: Symptomatic atrial fibrillation watermaster current use of amiodarone 04/28/2020 Overview: Indication: Symptomatic atrial fibrillation documented as of this encounter (statuses as of 07/19/2022) [facility] History of Past illness Narrative* Problem Noted Date Resolved Date Paroxysmal atrial fibrillation 0 04/28/2020 long-term current use of antiarrhythmic drug 04/28/2020 Overview: amiodarone since about 01/2020; indication: Symptomatic atrial fibrillation long-term current use of amiodarone 04/28/2020 Overview: Indication: Symptomatic atrial fibrillation documented as of this encounter (statuses as of 07/20/2022) [facility] History of Past illness Narrative* Problem Noted Date Resolved Date Paroxysmal atrial fibrillation 0 04/28/2020 watermaster current use of antiarrhythmic drug 04/28/2020 Overview: amiodarone since about 01/2020; indication: Symptomatic atrial fibrillation watermaster current use of amiodarone 04/28/2020 Overview: Indication: Symptomatic atrial fibrillation documented as of this encounter (statuses as of 07/21/2022) [facility] History of Past illness Narrative* Problem Noted Date Resolved Date Paroxysmal atrial fibrillation 0 04/28/2020 long-term current use of antiarrhythmic drug 04/28/2020 Overview: amiodarone since about 01/2020; indication: Symptomatic atrial fibrillation long-term current use of amiodarone 04/28/2020 Overview: Indication: Symptomatic atrial fibrillation documented as of this encounter (statuses as of 07/24/2022) [facility] History of Past illness Narrative* Problem Noted Date Resolved Date Paroxysmal atrial fibrillation 0 04/28/2020 long-term current use of antiarrhythmic drug 04/28/2020 Overview: amiodarone since about 01/2020; indication: Symptomatic atrial fibrillation watermaster current use of amiodarone 04/28/2020 Overview: Indication: Symptomatic atrial fibrillation documented as of this encounter (statuses as of 07/26/2022) [facility] History of Past illness Narrative* Problem Noted Date Resolved Date Paroxysmal atrial fibrillation 0 04/28/2020 watermaster current use of antiarrhythmic drug 04/28/2020 Overview: amiodarone since about 01/2020; indication: Symptomatic atrial fibrillation watermaster current use of amiodarone 04/28/2020 Overview: Indication: Symptomatic atrial fibrillation documented as of this encounter (statuses as of 08/02/2022) [facility] History of Past illness Narrative* Problem Noted Date Resolved Date Paroxysmal atrial fibrillation 0 04/28/2020 long-term current use of antiarrhythmic drug 04/28/2020 Overview: amiodarone since about 01/2020; indication: Symptomatic atrial fibrillation long-term current use of amiodarone 04/28/2020 Overview: Indication: Symptomatic atrial fibrillation documented as of this encounter (statuses as of 08/02/2022) [facility] History of Past illness Narrative* Problem Noted Date Resolved Date Paroxysmal atrial fibrillation 0 04/28/2020 long-term current use of antiarrhythmic drug 04/28/2020 Overview: amiodarone since about 01/2020; indication: Symptomatic atrial fibrillation long-term current use of amiodarone 04/28/2020 Overview: Indication: Symptomatic atrial fibrillation documented as of this encounter (statuses as of 08/09/2022) [facility] History of Past illness Narrative* Problem Noted Date Resolved Date Paroxysmal atrial fibrillation 0 04/28/2020 watermaster current use of antiarrhythmic drug 04/28/2020 Overview: amiodarone since about 01/2020; indication: Symptomatic atrial fibrillation long-term current use of amiodarone 04/28/2020 Overview: Indication: Symptomatic atrial fibrillation documented as of this encounter (statuses as of 08/09/2022) [facility] History of Past illness Narrative* Problem Noted Date Resolved Date Paroxysmal atrial fibrillation 0 04/28/2020 watermaster current use of antiarrhythmic drug 04/28/2020 Overview: amiodarone since about 01/2020; indication: Symptomatic atrial fibrillation long-term current use of amiodarone 04/28/2020 Overview: Indication: Symptomatic atrial fibrillation documented as of this encounter (statuses as of 08/09/2022) [facility] History of Past illness Narrative* Problem Noted Date Resolved Date Paroxysmal atrial fibrillation 0 04/28/2020 watermaster current use of antiarrhythmic drug 04/28/2020 Overview: amiodarone since about 01/2020; indication: Symptomatic atrial fibrillation long-term current use of amiodarone 04/28/2020 Overview: Indication: Symptomatic atrial fibrillation documented as of this encounter (statuses as of 08/09/2022) [facility] History of Past illness Narrative* Problem Noted Date Resolved Date Paroxysmal atrial fibrillation 0 04/28/2020 watermaster current use of antiarrhythmic drug 04/28/2020 Overview: amiodarone since about 01/2020; indication: Symptomatic atrial fibrillation watermaster current use of amiodarone 04/28/2020 Overview: Indication: Symptomatic atrial fibrillation documented as of this encounter (statuses as of 08/11/2022) [facility] History of Past illness Narrative* Problem Noted Date Resolved Date Paroxysmal atrial fibrillation 0 04/28/2020 long-term current use of antiarrhythmic drug 04/28/2020 Overview: amiodarone since about 01/2020; indication: Symptomatic atrial fibrillation long-term current use of amiodarone 04/28/2020 Overview: Indication: Symptomatic atrial fibrillation documented as of this encounter (statuses as of 08/15/2022) [facility] History of Past illness Narrative* Problem Noted Date Resolved Date Paroxysmal atrial fibrillation 0 04/28/2020 watermaster current use of antiarrhythmic drug 04/28/2020 Overview: amiodarone since about 01/2020; indication: Symptomatic atrial fibrillation long-term current use of amiodarone 04/28/2020 Overview: Indication: Symptomatic atrial fibrillation documented as of this encounter (statuses as of 08/16/2022) [facility] History of Past illness Narrative* Problem Noted Date Resolved Date Paroxysmal atrial fibrillation 0 04/28/2020 long-term current use of antiarrhythmic drug 04/28/2020 Overview: amiodarone since about 01/2020; indication: Symptomatic atrial fibrillation watermaster current use of amiodarone 04/28/2020 Overview: Indication: Symptomatic atrial fibrillation documented as of this encounter (statuses as of 08/23/2022) [facility] History of Past illness Narrative* Problem Noted Date Resolved Date Paroxysmal atrial fibrillation 0 04/28/2020 long-term current use of antiarrhythmic drug 04/28/2020 Overview: amiodarone since about 01/2020; indication: Symptomatic atrial fibrillation long-term current use of amiodarone 04/28/2020 Overview: Indication: Symptomatic atrial fibrillation documented as of this encounter (statuses as of 08/23/2022) [facility] History of Past illness Narrative* Problem Noted Date Resolved Date Paroxysmal atrial fibrillation 0 04/28/2020 long-term current use of antiarrhythmic drug 04/28/2020 Overview: amiodarone since about 01/2020; indication: Symptomatic atrial fibrillation watermaster current use of amiodarone 04/28/2020 Overview: Indication: Symptomatic atrial fibrillation documented as of this encounter (statuses as of 09/05/2022) [facility] History of Past illness Narrative* Problem Noted Date Resolved Date Paroxysmal atrial fibrillation 0 04/28/2020 watermaster current use of antiarrhythmic drug 04/28/2020 Overview: amiodarone since about 01/2020; indication: Symptomatic atrial fibrillation long-term current use of amiodarone 04/28/2020 Overview: Indication: Symptomatic atrial fibrillation documented as of this encounter (statuses as of 09/06/2022) [facility] History of Past illness Narrative* Problem Noted Date Resolved Date Paroxysmal atrial fibrillation 0 04/28/2020 long-term current use of antiarrhythmic drug 04/28/2020 Overview: amiodarone since about 01/2020; indication: Symptomatic atrial fibrillation watermaster current use of amiodarone 04/28/2020 Overview: Indication: Symptomatic atrial fibrillation documented as of this encounter (statuses as of 09/06/2022) [facility] History of Past illness Narrative* Problem Noted Date Resolved Date Paroxysmal atrial fibrillation 0 04/28/2020 long-term current use of antiarrhythmic drug 04/28/2020 Overview: amiodarone since about 01/2020; indication: Symptomatic atrial fibrillation watermaster current use of amiodarone 04/28/2020 Overview: Indication: Symptomatic atrial fibrillation documented as of this encounter (statuses as of 09/07/2022) [facility] History of Past illness Narrative* Problem Noted Date Resolved Date Paroxysmal atrial fibrillation 0 04/28/2020 long-term current use of antiarrhythmic drug 04/28/2020 Overview: amiodarone since about 01/2020; indication: Symptomatic atrial fibrillation long-term current use of amiodarone 04/28/2020 Overview: Indication: Symptomatic atrial fibrillation documented as of this encounter (statuses as of 09/08/2022) [facility] History of Past illness Narrative* Problem Noted Date Resolved Date Paroxysmal atrial fibrillation 0 04/28/2020 long-term current use of antiarrhythmic drug 04/28/2020 Overview: amiodarone since about 01/2020; indication: Symptomatic atrial fibrillation watermaster current use of amiodarone 04/28/2020 Overview: Indication: Symptomatic atrial fibrillation documented as of this encounter (statuses as of 09/09/2022) [facility] History of Past illness Narrative* Problem Noted Date Resolved Date Paroxysmal atrial fibrillation 0 04/28/2020 long-term current use of antiarrhythmic drug 04/28/2020 Overview: amiodarone since about 01/2020; indication: Symptomatic atrial fibrillation long-term current use of amiodarone 04/28/2020 Overview: Indication: Symptomatic atrial fibrillation documented as of this encounter (statuses as of 09/09/2022) [facility] History of Past illness Narrative* Problem Noted Date Resolved Date Paroxysmal atrial fibrillation 0 04/28/2020 long-term current use of antiarrhythmic drug 04/28/2020 Overview: amiodarone since about 01/2020; indication: Symptomatic atrial fibrillation watermaster current use of amiodarone 04/28/2020 Overview: Indication: Symptomatic atrial fibrillation documented as of this encounter (statuses as of 09/11/2022) [facility] History of Past illness Narrative* Problem Noted Date Resolved Date Paroxysmal atrial fibrillation 0 04/28/2020 long-term current use of antiarrhythmic drug 04/28/2020 Overview: amiodarone since about 01/2020; indication: Symptomatic atrial fibrillation long-term current use of amiodarone 04/28/2020 Overview: Indication: Symptomatic atrial fibrillation documented as of this encounter (statuses as of 09/27/2022) [facility] History of Past illness Narrative* Problem Noted Date Resolved Date Paroxysmal atrial fibrillation 0 04/28/2020 long-term current use of antiarrhythmic drug 04/28/2020 Overview: amiodarone since about 01/2020; indication: Symptomatic atrial fibrillation watermaster current use of amiodarone 04/28/2020 Overview: Indication: Symptomatic atrial fibrillation documented as of this encounter (statuses as of 10/11/2022) [facility] History of Past illness Narrative* Problem Noted Date Resolved Date Paroxysmal atrial fibrillation 0 04/28/2020 long-term current use of antiarrhythmic drug 04/28/2020 Overview: amiodarone since about 01/2020; indication: Symptomatic atrial fibrillation long-term current use of amiodarone 04/28/2020 Overview: Indication: Symptomatic atrial fibrillation documented as of this encounter (statuses as of 10/25/2022) [facility] History of Past illness Narrative* Problem Noted Date Resolved Date Paroxysmal atrial fibrillation 0 04/28/2020 watermaster current use of antiarrhythmic drug 04/28/2020 Overview: amiodarone since about 01/2020; indication: Symptomatic atrial fibrillation long-term current use of amiodarone 04/28/2020 Overview: Indication: Symptomatic atrial fibrillation documented as of this encounter (statuses as of 10/26/2022) [facility] History of Past illness Narrative* Problem Noted Date Resolved Date Paroxysmal atrial fibrillation 0 04/28/2020 long-term current use of antiarrhythmic drug 04/28/2020 Overview: amiodarone since about 01/2020; indication: Symptomatic atrial fibrillation watermaster current use of amiodarone 04/28/2020 Overview: Indication: Symptomatic atrial fibrillation documented as of this encounter (statuses as of 11/10/2022) [facility] History of Past illness Narrative* Problem Noted Date Resolved Date Paroxysmal atrial fibrillation 0 04/28/2020 long-term current use of antiarrhythmic drug 04/28/2020 Overview: amiodarone since about 01/2020; indication: Symptomatic atrial fibrillation long-term current use of amiodarone 04/28/2020 Overview: Indication: Symptomatic atrial fibrillation documented as of this encounter (statuses as of 11/10/2022) [facility] History of Past illness Narrative* Problem Noted Date Resolved Date Paroxysmal atrial fibrillation 0 04/28/2020 watermaster current use of antiarrhythmic drug 04/28/2020 Overview: amiodarone since about 01/2020; indication: Symptomatic atrial fibrillation watermaster current use of amiodarone 04/28/2020 Overview: Indication: Symptomatic atrial fibrillation documented as of this encounter (statuses as of 11/13/2022) [facility] History of Past illness Narrative* Problem Noted Date Resolved Date Paroxysmal atrial fibrillation 0 04/28/2020 watermaster current use of antiarrhythmic drug 04/28/2020 Overview: amiodarone since about 01/2020; indication: Symptomatic atrial fibrillation long-term current use of amiodarone 04/28/2020 Overview: Indication: Symptomatic atrial fibrillation documented as of this encounter (statuses as of 11/23/2022) [facility] History of Past illness Narrative* Problem Noted Date Resolved Date Paroxysmal atrial fibrillation 0 04/28/2020 long-term current use of antiarrhythmic drug 04/28/2020 Overview: amiodarone since about 01/2020; indication: Symptomatic atrial fibrillation long-term current use of amiodarone 04/28/2020 Overview: Indication: Symptomatic atrial fibrillation documented as of this encounter (statuses as of 11/25/2022) [facility] History of Past illness Narrative* Problem Noted Date Resolved Date Paroxysmal atrial fibrillation 0 04/28/2020 watermaster current use of antiarrhythmic drug 04/28/2020 Overview: amiodarone since about 01/2020; indication: Symptomatic atrial fibrillation long-term current use of amiodarone 04/28/2020 Overview: Indication: Symptomatic atrial fibrillation documented as of this encounter (statuses as of 12/29/2022) [facility] History of Past illness Narrative* Problem Noted Date Resolved Date Paroxysmal atrial fibrillation 0 04/28/2020 long-term current use of antiarrhythmic drug 04/28/2020 Overview: amiodarone since about 01/2020; indication: Symptomatic atrial fibrillation long-term current use of amiodarone 04/28/2020 Overview: Indication: Symptomatic atrial fibrillation documented as of this encounter (statuses as of 01/02/2023) [facility] History of Past illness Narrative* Problem Noted Date Resolved Date Paroxysmal atrial fibrillation 0 04/28/2020 watermaster current use of antiarrhythmic drug 04/28/2020 Overview: amiodarone since about 01/2020; indication: Symptomatic atrial fibrillation long-term current use of amiodarone 04/28/2020 Overview: Indication: Symptomatic atrial fibrillation documented as of this encounter (statuses as of 01/08/2023) [facility] History of Past illness Narrative* Problem Noted Date Resolved Date Paroxysmal atrial fibrillation 0 04/28/2020 long-term current use of antiarrhythmic drug 04/28/2020 Overview: amiodarone since about 01/2020; indication: Symptomatic atrial fibrillation long-term current use of amiodarone 04/28/2020 Overview: Indication: Symptomatic atrial fibrillation documented as of this encounter (statuses as of 02/02/2023) [facility] History of Past illness Narrative* Problem Noted Date Resolved Date Paroxysmal atrial fibrillation 0 04/28/2020 long-term current use of antiarrhythmic drug 04/28/2020 Overview: amiodarone since about 01/2020; indication: Symptomatic atrial fibrillation watermaster current use of amiodarone 04/28/2020 Overview: Indication: Symptomatic atrial fibrillation documented as of this encounter (statuses as of 02/08/2023) [facility] History of Past illness Narrative* Problem Noted Date Resolved Date Paroxysmal atrial fibrillation 0 04/28/2020 long-term current use of antiarrhythmic drug 04/28/2020 Overview: amiodarone since about 01/2020; indication: Symptomatic atrial fibrillation watermaster current use of amiodarone 04/28/2020 Overview: Indication: Symptomatic atrial fibrillation documented as of this encounter (statuses as of 02/15/2023) [facility] History of Past illness Narrative* Problem Noted Date Resolved Date Paroxysmal atrial fibrillation 0 04/28/2020 long-term current use of antiarrhythmic drug 04/28/2020 Overview: amiodarone since about 01/2020; indication: Symptomatic atrial fibrillation watermaster current use of amiodarone 04/28/2020 Overview: Indication: Symptomatic atrial fibrillation documented as of this encounter (statuses as of 02/27/2023) [facility] History of Past illness Narrative* Problem Noted Date Diagnosed Date Resolved Date Paroxysmal atrial fibrillation 04/28/2020 long-term current use of antiarrhythmic drug 04/28/2020 Overview: amiodarone since about 01/2020; indication: Symptomatic atrial fibrillation long-term current use of amiodarone 04/28/2020 Overview: Indication: Symptomatic atrial fibrillation documented as of this encounter (statuses as of 03/17/2023) [facility] History of Past illness Narrative* Problem Noted Date Diagnosed Date Resolved Date Paroxysmal atrial fibrillation 04/28/2020 watermaster current use of antiarrhythmic drug 04/28/2020 Overview: amiodarone since about 01/2020; indication: Symptomatic atrial fibrillation watermaster current use of amiodarone 04/28/2020 Overview: Indication: Symptomatic atrial fibrillation documented as of this encounter (statuses as of 03/20/2023) [facility] History of Past illness Narrative* Problem Noted Date Diagnosed Date Resolved Date Paroxysmal atrial fibrillation 04/28/2020 long-term current use of antiarrhythmic drug 04/28/2020 Overview: amiodarone since about 01/2020; indication: Symptomatic atrial fibrillation long-term current use of amiodarone 04/28/2020 Overview: Indication: Symptomatic atrial fibrillation documented as of this encounter (statuses as of 04/19/2023) [facility] History of Past illness Narrative* Problem Noted Date Diagnosed Date Resolved Date Paroxysmal atrial fibrillation 04/28/2020 long-term current use of antiarrhythmic drug 04/28/2020 Overview: amiodarone since about 01/2020; indication: Symptomatic atrial fibrillation watermaster current use of amiodarone 04/28/2020 Overview: Indication: Symptomatic atrial fibrillation documented as of this encounter (statuses as of 04/24/2023) [facility] History of Past illness Narrative* Problem Noted Date Diagnosed Date Resolved Date Paroxysmal atrial fibrillation 04/28/2020 long-term current use of antiarrhythmic drug 04/28/2020 Overview: amiodarone since about 01/2020; indication: Symptomatic atrial fibrillation long-term current use of amiodarone 04/28/2020 Overview: Indication: Symptomatic atrial fibrillation documented as of this encounter (statuses as of 04/26/2023) [facility] History of Past illness Narrative* Problem Noted Date Diagnosed Date Resolved Date Paroxysmal atrial fibrillation 04/28/2020 long-term current use of antiarrhythmic drug 04/28/2020 Overview: amiodarone since about 01/2020; indication: Symptomatic atrial fibrillation long-term current use of amiodarone 04/28/2020 Overview: Indication: Symptomatic atrial fibrillation documented as of this encounter (statuses as of 05/01/2023) [facility] History of Past illness Narrative* Problem Noted Date Diagnosed Date Resolved Date Paroxysmal atrial fibrillation 04/28/2020 watermaster current use of antiarrhythmic drug 04/28/2020 Overview: amiodarone since about 01/2020; indication: Symptomatic atrial fibrillation long-term current use of amiodarone 04/28/2020 Overview: Indication: Symptomatic atrial fibrillation documented as of this encounter (statuses as of 05/11/2023) [facility] History of Past illness Narrative* Problem Noted Date Diagnosed Date Resolved Date Paroxysmal atrial fibrillation 04/28/2020 long-term current use of antiarrhythmic drug 04/28/2020 Overview: amiodarone since about 01/2020; indication: Symptomatic atrial fibrillation long-term current use of amiodarone 04/28/2020 Overview: Indication: Symptomatic atrial fibrillation documented as of this encounter (statuses as of 05/16/2023) [facility] History of Past illness Narrative* Problem Noted Date Diagnosed Date Resolved Date Paroxysmal atrial fibrillation 04/28/2020 watermaster current use of antiarrhythmic drug 04/28/2020 Overview: amiodarone since about 01/2020; indication: Symptomatic atrial fibrillation long-term current use of amiodarone 04/28/2020 Overview: Indication: Symptomatic atrial fibrillation documented as of this encounter (statuses as of 05/18/2023) [facility] History of Past illness Narrative* Problem Noted Date Diagnosed Date Resolved Date Paroxysmal atrial fibrillation 04/28/2020 long-term current use of antiarrhythmic drug 04/28/2020 Overview: amiodarone since about 01/2020; indication: Symptomatic atrial fibrillation watermaster current use of amiodarone 04/28/2020 Overview: Indication: Symptomatic atrial fibrillation documented as of this encounter (statuses as of 05/18/2023) [facility] History of Past illness Narrative* Problem Noted Date Diagnosed Date Resolved Date Paroxysmal atrial fibrillation 04/28/2020 watermaster current use of antiarrhythmic drug 04/28/2020 Overview: amiodarone since about 01/2020; indication: Symptomatic atrial fibrillation long-term current use of amiodarone 04/28/2020 Overview: Indication: Symptomatic atrial fibrillation documented as of this encounter (statuses as of 05/18/2023) [facility] History of Past illness Narrative* Problem Noted Date Diagnosed Date Resolved Date Paroxysmal atrial fibrillation 04/28/2020 watermaster current use of antiarrhythmic drug 04/28/2020 Overview: amiodarone since about 01/2020; indication: Symptomatic atrial fibrillation long-term current use of amiodarone 04/28/2020 Overview: Indication: Symptomatic atrial fibrillation documented as of this encounter (statuses as of 05/18/2023) [facility] History of Past illness Narrative* Problem Noted Date Diagnosed Date Resolved Date Paroxysmal atrial fibrillation 04/28/2020 watermaster current use of antiarrhythmic drug 04/28/2020 Overview: amiodarone since about 01/2020; indication: Symptomatic atrial fibrillation watermaster current use of amiodarone 04/28/2020 Overview: Indication: Symptomatic atrial fibrillation documented as of this encounter (statuses as of 05/25/2023) [facility] History of Past illness Narrative* Problem Noted Date Diagnosed Date Resolved Date Paroxysmal atrial fibrillation 04/28/2020 long-term current use of antiarrhythmic drug 04/28/2020 Overview: amiodarone since about 01/2020; indication: Symptomatic atrial fibrillation watermaster current use of amiodarone 04/28/2020 Overview: Indication: Symptomatic atrial fibrillation documented as of this encounter (statuses as of 05/29/2023) [facility] History of Past illness Narrative* Problem Noted Date Diagnosed Date Resolved Date Paroxysmal atrial fibrillation 04/28/2020 watermaster current use of antiarrhythmic drug 04/28/2020 Overview: amiodarone since about 01/2020; indication: Symptomatic atrial fibrillation long-term current use of amiodarone 04/28/2020 Overview: Indication: Symptomatic atrial fibrillation documented as of this encounter (statuses as of 07/08/2023) [address]26-2020 History of Past illness Narrative* Problem Noted Date Diagnosed Date Resolved Date Paroxysmal atrial fibrillation 04/28/2020 long-term current use of antiarrhythmic drug 04/28/2020 Overview: amiodarone since about 01/2020; indication: Symptomatic atrial fibrillation watermaster current use of amiodarone 04/28/2020 Overview: Indication: Symptomatic atrial fibrillation documented as of this encounter (statuses as of 07/17/2023) [facility] History of Past illness Narrative* Problem Noted Date Diagnosed Date Resolved Date Paroxysmal atrial fibrillation 04/28/2020 watermaster current use of antiarrhythmic drug 04/28/2020 Overview: amiodarone since about 01/2020; indication: Symptomatic atrial fibrillation watermaster current use of amiodarone 04/28/2020 Overview: Indication: Symptomatic atrial fibrillation documented as of this encounter (statuses as of 08/17/2023) [facility] History of Past illness Narrative* Problem Noted Date Diagnosed Date Resolved Date Paroxysmal atrial fibrillation 04/28/2020 watermaster current use of antiarrhythmic drug 04/28/2020 Overview: amiodarone since about 01/2020; indication: Symptomatic atrial fibrillation watermaster current use of amiodarone 04/28/2020 Overview: Indication: Symptomatic atrial fibrillation documented as of this encounter (statuses as of 08/17/2023) [facility] Diagnosis Effusion of right knee joint- Primary Effusion of lower leg joint Camara's cyst of knee, right [facility] Diagnosis Status post catheter ablation of [...] hazards to health [facility] Diagnosis Chronic midline thoracic back pain- Primary Somatic dysfunction of thoracic region Nonallopathic lesion of thoracic region, not elsewhere classified [facility] Diagnosis Persistent atrial fibrillation (HCC)- Primary Atrial fibrillation Anticoagulant long-term use Long-term (current) use of anticoagulants Subacute cough- Primary Cough Palpitations Status post catheter ablation of atrial fibrillation Persistent atrial fibrillation (HCC) Atrial fibrillation Anticoagulant long-term use Long-term (current) use of anticoagulants [facility]* Diagnosis Persistent atrial fibrillation (HCC)- Primary Atrial fibrillation Dyspnea, unspecified type documented in this encounter [facility] note* Diagnosis Atrial fibrillation, unspecified type (HCC)- Primary [facility] Diagnosis Persistent atrial fibrillation (HCC)- Primary Atrial fibrillation Status post catheter ablation of atrial fibrillation Current use of intermediate manager anticoagulation Long-term (current) use of anticoagulants documented in this encounter [facility] note* Diagnosis Visit for wound check- Primary Encounter for other specified aftercare [facility] Diagnosis Atrial fibrillation, unspecified type (HCC)- Primary [facility]* Diagnosis Atrial fibrillation, unspecified type (HCC)- Primary [facility]* Diagnosis Atrial fibrillation, unspecified type (HCC)- Primary [facility] Diagnosis Chronic midline thoracic back pain- Primary Somatic dysfunction of thoracic region Nonallopathic lesion of thoracic region, not elsewhere classified Paroxysmal atrial fibrillation (HCC) Atrial fibrillation [facility]* Diagnosis Atrial fibrillation, unspecified type (HCC)- Primary [facility]* Diagnosis Persistent atrial fibrillation (HCC) Atrial fibrillation Dyspnea, unspecified type [facility] Diagnosis Persistent atrial fibrillation (HCC) Atrial fibrillation Dyspnea, unspecified type [facility] Diagnosis Persistent atrial fibrillation (HCC)- Primary [...] disorders of liver [facility] Diagnosis Abnormal finding on CT scan- Primary Other nonspecific (abnormal) findings on radiological and other examinations of body structure [facility]* Diagnosis Persistent atrial fibrillation (HCC)- Primary Atrial fibrillation Status post catheter ablation of atrial fibrillation Essential hypertension Unspecified essential hypertension At risk for stroke Other specified personal history presenting hazards to health [facility]* Diagnosis Paroxysmal atrial fibrillation (HCC)- Primary Atrial fibrillation [facility]* Diagnosis Palpitations- Primary RBBB (right bundle branch block) Right bundle branch block Status post catheter ablation of atrial fibrillation Persistent atrial fibrillation (HCC) Atrial fibrillation Typical atrial flutter (HCC) Atrial flutter Atypical atrial flutter (HCC) Atrial flutter 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* Diagnosis Dyspnea, unspecified type- Primary Persistent atrial fibrillation (HCC) Atrial fibrillation [facility] Diagnosis Paroxysmal atrial fibrillation (HCC)- Primary Atrial fibrillation [facility] Diagnosis Palpitations- Primary [facility] Diagnosis Skin infection- Primary Unspecified local infection of skin and subcutaneous tissue [facility] Diagnosis Knee injury, initial encounter- Primary Staph skin infection Unspecified local infection of skin and subcutaneous tissue [facility] Diagnosis Contusion of knee and lower leg, right, subsequent encounter- Primary Sprain of left shoulder, unspecified shoulder sprain type, subsequent encounter [facility] Diagnosis Persistent atrial fibrillation (HCC)- Primary Atrial fibrillation Status post catheter ablation of atrial fibrillation RBBB (right bundle branch block) Right bundle branch block PAC (premature atrial contraction) Supraventricular premature beats PVC (premature ventricular contraction) Other premature beats Current use of intermediate manager anticoagulation Long-term (current) use of anticoagulants At risk for stroke Other specified personal history presenting hazards to health [facility] Diagnosis Dyspnea, unspecified type Persistent atrial fibrillation (HCC) Atrial fibrillation [facility] Diagnosis Dyspnea, unspecified type Persistent atrial fibrillation (HCC) Atrial fibrillation documented in this encounter [facility] note* Diagnosis Dyspnea, unspecified type Persistent atrial fibrillation (HCC) Atrial fibrillation documented in this encounter [facility] note* Diagnosis Disorder of rotator cuff, right- Primary documented in this encounter [facility] note* Diagnosis Abnormal finding on CT scan Other nonspecific (abnormal) findings on radiological and other examinations of body structure documented in this encounter [facility] note* Diagnosis Atrial fibrillation, unspecified type (HCC)- Primary Persistent atrial fibrillation (HCC) Atrial fibrillation Persistent atrial fibrillation (HCC)- Primary Atrial fibrillation Status post catheter ablation of atrial fibrillation PVC (premature ventricular contraction) Other premature beats PAC (premature atrial contraction) Supraventricular premature beats Palpitations RBBB (right bundle branch block) Right bundle branch block Atherosclerosis of 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 At risk for stroke Other specified personal history presenting hazards to health Anticoagulant long-term use Long-term (current) use of anticoagulants documented in this encounter [facility] for referral (narrative)* Outpatient Procedure (Routine) - Authorized Specialty Diagnoses / Procedures Referred By Ness bender Referred To Contact [facility] [place] Diagnoses Status post catheter ablation of atrial fibrillation Persistent atrial fibrillation (HCC) Current use of intermediate manager anticoagulation Procedures US LEG VEIN DVT UNL VAS LAB DUP-SCAN XTR VEINS UNILATERAL/LIMITED STUDY Evaristo George APRN.CNP [address] [place] [address] [facility] [address] [address] Referral ID Status Reason Start Date Expiration Date Visits Requested Visits Authorized [id number] Authorized Auto-Generat ed Referral 06/05/2022 06/05/2023 1 1 [facility] for referral (narrative)* Outpatient Procedure (Routine) - Closed Specialty Diagnoses / Procedures Referred By Ness bender Referred To Contact [facility] [place] Diagnoses Persistent atrial fibrillation (HCC) Dyspnea, unspecified type Procedures ECHO ECHO TTHRC R-T 2D W/WOM-MODE COMPL SPEC&COLR D Deloris Alexander MD [address] [id number] [facility] [place] [address] [place] [address] Referral ID Status Reason Start Date Expiration Date V isits Requested Visits Authorized [id number] Closed Auto-Generate d Referral 08/22/2022 05/30/2023 1 1 [facility] for referral (narrative)* Diagnostic Procedure Only (Routine) - Authorized Specialty Diagnoses / Procedures Referred By Contac t Referred To Contact US IMAGING Diagnoses Abnormal finding on CT scan Procedures US ABD RT UPPER QUADRANT US ABDOMINAL REAL TIME W/IMAGE LIMITED Kenneth Noland V, DO [address] [place] [address] Us Imaging Referral ID Status Reason Start Date Expiration Date Visits Requested Visits Authorized [id number] Authorized Auto-Generat ed Referral 09/06/2022 10/06/2023 1 1 [facility] for referral (narrative)* Outpatient Procedure (Routine) - Closed Specialty Diagnoses / Procedures Referred By Contac t Referred To Contact [facility] [place] Diagnoses Dyspnea, unspecified type Persistent atrial fibrillation (HCC) Procedures ECHO ECHO TTHRC R-T 2D W/WOM-MODE COMPL SPEC&COLR D Deloris Alexander MD [address] [place] [address] [facility] [place] [address] [place] [address] Referral ID Status Reason Start Date Expiration Date V isits Requested Visits Authorized [id number] Closed Auto-Generate d Referral 05/10/2023 02/15/2024 1 1 [facility] for referral (narrative)* Diagnostic Procedure Only (Routine) - Closed Specialty Diagnoses / Procedures Referred By Contac t Referred To Contact US IMAGING Diagnoses Abnormal finding on CT scan Procedures US ABD RT UPPER QUADRANT US ABDOMINAL REAL TIME W/IMAGE LIMITED Kenneth Noland V DO [address] [place] [address] [facility] [address] Referral ID Status Reason Start Date Expiration Date V isits Requested Visits Authorized [id number] Closed Auto-Generate d Referral 09/06/2022 10/06/2023 1 1 [facility] for visit Narrative* Outpatient Procedure (Routine) - Closed Specialty Diagnoses / Procedures Referred By Contac t Referred To Contact [facility] [place] Diagnoses Persistent atrial fibrillation (HCC) Dyspnea, unspecified type Procedures ECHO ECHO TTHRC R-T 2D W/WOM-MODE COMPL SPEC&COLR D Deloris Alexander MD [address] [place] [address] [address] Referral ID Status Reason Start Date Expiration Date V isits Requested Visits Authorized [id number] Closed Auto-Generate d Referral 08/22/2022 05/30/2023 1 1 [facility] for visit Narrative* Outpatient Procedure (Routine) - Closed Specialty Diagnoses / Procedures Referred By Contac t Referred To Contact [facility] Diagnoses Dyspnea, unspecified type Persistent atrial fibrillation (HCC) Procedures ECHO ECHO TTHRC R-T 2D W/WOM-MODE COMPL SPEC&COLR D Deloris Aleaxnder MD [address] [place] [address] [address] [place] [address] Referral ID Status Reason Start Date Expiration Date V isits Requested Visits Authorized [id number] Closed Auto-Generate d Referral 05/10/2023 02/15/[address] [facility] Summary Purpose Family History No Family History Records FoundNo Family History Records FoundNo Family History Records FoundNo Family History Records FoundNo Family History Records Found Advance Directives No Advanced Directives Records FoundDocuments on File Type Date Recorded Patient Bufferer Expl anation Advance Directive(s) 07/01/2021 7:27 AM [...] MD [address] [place] [address] Ct Imaging Referral ID Status Reason Start Date Expiration Date Visits Requested Visits Authorized [id number] Pending Review Auto-Generat ed Referral 2 06/29/2023 1 1 Specialty Diagnoses / Procedures Referred By Contac t Referred [facility] Diagnoses Persistent atrial fibrillation (HCC) Dyspnea, unspecified type Procedures ECHO ECHO TTHRC R-T 2D W/WOM-MODE COMPL SPEC&COLR D Deloris Alexander MD [address] [place] [address] [facility] [place] [address] [place] [address] Referral ID Status Reason Start Date Expiration Date Visits Requested Visits Authorized [id number] Pending Review Auto-Generat ed Referral 2 05/30/2023 1 1 Referral ID Status Reason Start Date Expiration Date V isits Requested Visits Authorized [id number] Closed Auto-Generate d Referral 08/22/2022 06/29/2023 1 1 Specialty Diagnoses / Procedures Referred By Contac t Referred To Contact Cardiology Diagnoses Coronary artery disease involving 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 Procedures CONSULT TO CARDIOLOGY OFFICE/OUTPATIENT [facility] MDM 60-74 MINUTES Deloris Alexander MD [address] [place] [address] [facility] [address] [place] [address] Phone: [phone] Referral ID Status Reason Start Date Expiration Date Visits Requested Visits Authorized [id number] Pending Review PCP Requested Referral 02/07/2023 02/07/2024 1 1 Specialty Diagnoses / Procedures Referred By Contac t Referred To Contact CT IMAGING Diagnoses Dyspnea, unspecified type Persistent atrial fibrillation (HCC) Procedures CTA CHEST (NONGATED) W IVCON CT ANGIOGRAPHY CHEST W/CONTRAST/NONCONTRAST Deloris Alexander MD [address] [place] [address] Ct Imaging Referral ID Status Reason Start Date Expiration Date Visits Requested Visits Authorized [id number] Authorized Auto-Generat ed Referral 05/10/2023 03/16/2024 1 1 Specialty Diagnoses / Procedures Referred By Contac t Referred [facility] Diagnoses Dyspnea, unspecified type Persistent atrial fibrillation (HCC) Procedures ECHO ECHO TTHRC R-T 2D W/WOM-MODE COMPL SPEC&COLR D Deloris Alexander MD [address] [place] [address] [facility] [place] [address] [place] [address] Referral ID Status Reason Start Date Expiration Date Visits Requested Visits Authorized [id number] Authorized Auto-Generat ed Referral 05/10/2023 02/15/2024 1 1 Specialty Diagnoses / Procedures Referred By Contac t Referred To Contact Cardiology Diagnoses Paroxysmal atrial fibrillation (HCC) Procedures CONSULT TO CARDIOLOGY OFFICE/OUTPATIENT [facility] 60-74 MINUTES Kenneth Noland V, DO [address] [place] [address] Referral ID Status Reason Start Date Expiration Date Visits Requested Visits Authorized [id number] Pending Review PCP Requested Referral 03/29/2023 02/27/2024 1 1 Specialty Diagnoses / Procedures Referred By Contac t Referred To Contact CT IMAGING Diagnoses Atrial fibrillation, unspecified type (HCC) Procedures CT PULMONARY VEIN W IVCON CT HEART CONTRAST EVAL CARDIAC STRUCTURE&MORPH Andrea Mosley MD [address] [place] [address] Ct Imaging [facility] Referral ID Status Reason Start Date Expiration Date Visits Requested Visits Authorized [id number] Authorized Auto-Generat ed Referral 3 09/15/2024 1 1 Specialty Diagnoses / Procedures Referred By Contac t Referred To Contact [facility] Diagnoses Atrial fibrillation, unspecified type (HCC) Procedures LUNG DIFFUSION CAPACITY (DLCO) DIFFUSING CAPACITY Andrea Mosley MD [address] [place] [address] [address] Referral ID Status Reason Start Date Expiration Date Visits Requested Visits Authorized [id number] Pending Review Auto-Generat ed Referral 3 09/15/2024 1 1 Specialty Diagnoses / Procedures Referred By Contac t Referred To Contact [facility] Diagnoses Atrial fibrillation, unspecified type (HCC) Procedures SPIROMETRY BASELINE ONLY SPMTRY W/VC EXPIRATORY RAQUEL W/[place] [address] [place] [address] [address] [address] Referral ID Status Reason Start Date Expiration Date Visits Requested Visits Authorized [id number] Pending Review Auto-Generat ed Referral 3 09/15/2024 1 1 Specialty Diagnoses / Procedures Referred By Contac t Referred To Contact [facility] [place] Diagnoses Atrial fibrillation, unspecified type (HCC) Procedures PVR ANK PRESS SB VAS LAB NON-INVAS PHYSIOLOGIC STD EXTREMITY ART 2 LEVEL Andrea Mosley MD [address] [place] [address] [address] Referral ID Status Reason Start Date Expiration Date Visits Requested Visits Authorized [id number] Pending Review Auto-Generat ed Referral 3 08/16/2024 1 1 Specialty Diagnoses / Procedures Referred By Contac t Referred To [facility] [place] Diagnoses Atrial fibrillation, unspecified type (HCC) Procedures US CAROTID ARTERIES SB VAS LAB DUPLEX SCAN EXTRACRANIAL ART COMPL BI STUDY Andrea Mosley MD [address] [place] [address] [facility] [address] [address] Referral ID Status Reason Start Date Expiration Date Visits Requested Visits Authorized [id number] Pending Review Auto-Generat ed Referral 3 08/16/2024 1 1 Specialty Diagnoses / Procedures Referred By Contac t Referred To Contact [facility] Diagnoses Atrial fibrillation, unspecified type (HCC) Procedures NM CARDIAC PERF STRESS/PHARM MYOCARDIAL SPECT MULTIPLE STUDIES Andrea Mosley MD [address] [place] [address] [facility] [address] [place] [address] Referral ID Status Reason Start Date Expiration Date Visits Requested Visits Authorized [id number] Authorized Auto-Generat ed Referral 3 09/15/2024 1 1 Specialty Diagnoses / Procedures Referred By Contac t Referred To Contact [facility] Diagnoses Atrial fibrillation, unspecified type (HCC) Procedures ECG COMPLETE ECG ROUTINE ECG W/LEAST 12 LDS W/I&R Andrea Mosley MD [address] [place] [address] [place] [address] Referral ID Status Reason Start Date Expiration Date Visits Requested Visits Authorized [id number] Pending Review Auto-Generat ed Referral 3 08/16/2024 1 1 Specialty Diagnoses / Procedures [facility] To Contact Card[facility] Diagnoses Atrial fibrillation, unspecified type (HCC) Procedures CARDIOTHORACIC PREOP EVALUATION OFFICE/OUTPATIENT NEW [facility]IGH MDM 60-74 MINUTES Andrea Mosley MD [address] [place] [address] Referral ID Status Reason Start Date Expiration Date Visits Requested Visits Authorized [id number] Pending Review PCP Requested Referral 3 08/16/2024 1 1 Additional Source Comments (unrecognized sect ion and content) No Status Records FoundNo Status Records FoundNo Status Records FoundNo Status Records FoundNo Status Records Found INFORMATION SOURCE (unrecogn ized section and content) DATE CREATED AUTHOR AUTHOR'S ORGANIZ ATION 07/06/2020 [employer] [facility] DATE CREATED AUTHOR AUTHOR'S ORGANIZ ATION 11/21/2020 [facility] DATE CREATED AUTHOR AUTHOR'S ORGANIZ ATION 09/13/2023 [facility] DATE CREATED AUTHOR AUTHOR'S ORGANIZ ATION 09/20/2023 [facility] Source Comments (unrecognize d section and content) In the event this informatio n is protected by the Federal Confidentiality of Alcohol and Drug Abuse Patient Records regulations: The Federal rules restrict any use of the information to criminally investigate or prosecute any alcohol or drug abuse patient.[facility] the event this information is protected by the Federal Confidentiality of Alcohol and Drug Abuse Patient Records regulations: The Federal rules restrict any use of the information to criminally investigate or prosecute any alcohol or drug abuse patient.[facility] the event this information is protected by the Federal Confidentiality of Alcohol and Drug Abuse Patient Records regulations: The Federal rules restrict any use of the information to criminally investigate or prosecute any alcohol or drug abuse patient.[facility] the event this information is protected by the Federal Confidentiality of Alcohol and Drug Abuse Patient Records regulations: The Federal rules restrict any use of the information to criminally investigate or prosecute any alcohol or drug abuse patient.[facility] Center[facility] the event this information is protected by the Federal Confidentiality of Alcohol and Drug Abuse Patient Records regulations: The Federal rules restrict any use of the information to criminally investigate or prosecute any alcohol or drug abuse patient.[facility] Center[facility] the event this information is protected by the Federal Confidentiality of Alcohol and Drug Abuse Patient Records regulations: The Federal rules restrict any use of the information to criminally investigate or prosecute any alcohol or drug abuse patient.[facility] Center[facility] the event this information is protected by the Federal Confidentiality of Alcohol and Drug Abuse Patient Records regulations: The Federal rules restrict any use of the information to criminally investigate or prosecute any alcohol or drug abuse patient.[facility] CenterIn the event this information is protected by the Federal Confidentiality of Alcohol and Drug Abuse Patient Records regulations: The Federal rules restrict any use of the information to criminally investigate or prosecute any alcohol or drug abuse patient.[facility] CenterIn the event this information is protected by the Federal Confidentiality of Alcohol and Drug Abuse Patient Records regulations: The Federal rules restrict any use of the information to criminally investigate or prosecute any alcohol or drug abuse patient.[facility] CenterIn the event this information is protected by the Federal Confidentiality of Alcohol and Drug Abuse Patient Records regulations: The Federal rules restrict any use of the information to criminally investigate or prosecute any alcohol or drug abuse patient.[facility] CenterIn the event this information is protected by the Federal Confidentiality of Alcohol and Drug Abuse Patient Records regulations: The Federal rules restrict any use of the information to criminally investigate or prosecute any alcohol or drug abuse patient.[facility] CenterIn the event this information is protected by the Federal Confidentiality of Alcohol and Drug Abuse Patient Records regulations: The Federal rules restrict any use of the information to criminally investigate or prosecute any alcohol or drug abuse patient.[facility] CenterIn the event this information is protected by the Federal Confidentiality of Alcohol and Drug Abuse Patient Records regulations: The Federal rules restrict any use of the information to criminally investigate or prosecute any alcohol or drug abuse patient.[facility] CenterIn the event this information is protected by the Federal Confidentiality of Alcohol and Drug Abuse Patient Records regulations: The Federal rules restrict any use of the information to criminally investigate or prosecute any alcohol or drug abuse patient.[facility] CenterIn the event this information is protected by the Federal Confidentiality of Alcohol and Drug Abuse Patient Records regulations: The Federal rules restrict any use of the information to criminally investigate or prosecute any alcohol or drug abuse patient.[facility] CenterIn the event this information is protected by the Federal Confidentiality of Alcohol and Drug Abuse Patient Records regulations: The Federal rules restrict any use of the information to criminally investigate or prosecute any alcohol or drug abuse patient.[facility] CenterIn the event this information is protected by the Federal Confidentiality of Alcohol and Drug Abuse Patient Records regulations: The Federal rules restrict any use of the information to criminally investigate or prosecute any alcohol or drug abuse patient.[facility] CenterIn the event this information is protected by the Federal Confidentiality of Alcohol and Drug Abuse Patient Records regulations: The Federal rules restrict any use of the information to criminally investigate or prosecute any alcohol or drug abuse patient.[facility] CenterIn the event this information is protected by the Federal Confidentiality of Alcohol and Drug Abuse Patient Records regulations: The Federal rules restrict any use of the information to criminally investigate or prosecute any alcohol or drug abuse patient.[facility] CenterIn the event this information is protected by the Federal Confidentiality of Alcohol and Drug Abuse Patient Records regulations: The Federal rules restrict any use of the information to criminally investigate or prosecute any alcohol or drug abuse patient.[facility] CenterIn the event this information is protected by the Federal Confidentiality of Alcohol and Drug Abuse Patient Records regulations: The Federal rules restrict any use of the information to criminally investigate or prosecute any alcohol or drug abuse patient.[facility] CenterIn the event this information is protected by the Federal Confidentiality of Alcohol and Drug Abuse Patient Records regulations: The Federal rules restrict any use of the information to criminally investigate or prosecute any alcohol or drug abuse patient.[facility] CenterIn the event this information is protected by the Federal Confidentiality of Alcohol and Drug Abuse Patient Records regulations: The Federal rules restrict any use of the information to criminally investigate or prosecute any alcohol or drug abuse patient.[facility] CenterIn the event this information is protected by the Federal Confidentiality of Alcohol and Drug Abuse Patient Records regulations: The Federal rules restrict any use of the information to criminally investigate or prosecute any alcohol or drug abuse patient.[facility] CenterIn the event this information is protected by the Federal Confidentiality of Alcohol and Drug Abuse Patient Records regulations: The Federal rules restrict any use of the information to criminally investigate or prosecute any alcohol or drug abuse patient.[facility] CenterIn the event this information is protected by the Federal Confidentiality of Alcohol and Drug Abuse Patient Records regulations: The Federal rules restrict any use of the information to criminally investigate or prosecute any alcohol or drug abuse patient.[facility] CenterIn the event this information is protected by the Federal Confidentiality of Alcohol and Drug Abuse Patient Records regulations: The Federal rules restrict any use of the information to criminally investigate or prosecute any alcohol or drug abuse patient.[facility] CenterIn the event this information is protected by the Federal Confidentiality of Alcohol and Drug Abuse Patient Records regulations: The Federal rules restrict any use of the information to criminally investigate or prosecute any alcohol or drug abuse patient.[facility] CenterIn the event this information is protected by the Federal Confidentiality of Alcohol and Drug Abuse Patient Records regulations: The Federal rules restrict any use of the information to criminally investigate or prosecute any alcohol or drug abuse patient.[facility] CenterIn the event this information is protected by the Federal Confidentiality of Alcohol and Drug Abuse Patient Records regulations: The Federal rules restrict any use of the information to criminally investigate or prosecute any alcohol or drug abuse patient.[facility] CenterIn the event this information is protected by the Federal Confidentiality of Alcohol and Drug Abuse Patient Records regulations: The Federal rules restrict any use of the information to criminally investigate or prosecute any alcohol or drug abuse patient.[facility] CenterIn the event this information is protected by the Federal Confidentiality of Alcohol and Drug Abuse Patient Records regulations: The Federal rules restrict any use of the information to criminally investigate or prosecute any alcohol or drug abuse patient.[facility] CenterIn the event this information is protected by the Federal Confidentiality of Alcohol and Drug Abuse Patient Records regulations: The Federal rules restrict any use of the information to criminally investigate or prosecute any alcohol or drug abuse patient.[facility] CenterIn the event this information is protected by the Federal Confidentiality of Alcohol and Drug Abuse Patient Records regulations: The Federal rules restrict any use of the information to criminally investigate or prosecute any alcohol or drug abuse patient.[facility] CenterIn the event this information is protected by the Federal Confidentiality of Alcohol and Drug Abuse Patient Records regulations: The Federal rules restrict any use of the information to criminally investigate or prosecute any alcohol or drug abuse patient.[facility] CenterIn the event this information is protected by the Federal Confidentiality of Alcohol and Drug Abuse Patient Records regulations: The Federal rules restrict any use of the information to criminally investigate or prosecute any alcohol or drug abuse patient.[facility] CenterIn the event this information is protected by the Federal Confidentiality of Alcohol and Drug Abuse Patient Records regulations: The Federal rules restrict any use of the information to criminally investigate or prosecute any alcohol or drug abuse patient.[facility] CenterIn the event this information is protected by the Federal Confidentiality of Alcohol and Drug Abuse Patient Records regulations: The Federal rules restrict any use of the information to criminally investigate or prosecute any alcohol or drug abuse patient.[facility]In the event this information is protected by the Federal Confidentiality of Alcohol and Drug Abuse Patient Records regulations: The Federal rules restrict any use of the information to criminally investigate or prosecute any alcohol or drug abuse patient.[facility] CenterIn the event this information is protected by the Federal Confidentiality of Alcohol and Drug Abuse Patient Records regulations: The Federal rules restrict any use of the information to criminally investigate or prosecute any alcohol or drug abuse patient.[facility] CenterIn the event this information is protected by the Federal Confidentiality of Alcohol and Drug Abuse Patient Records regulations: The Federal rules restrict any use of the information to criminally investigate or prosecute any alcohol or drug abuse patient.[facility] CenterIn the event this information is protected by the Federal Confidentiality of Alcohol and Drug Abuse Patient Records regulations: The Federal rules restrict any use of the information to criminally investigate or prosecute any alcohol or drug abuse patient.[facility] CenterIn the event this information is protected by the Federal Confidentiality of Alcohol and Drug Abuse Patient Records regulations: The Federal rules restrict any use of the information to criminally investigate or prosecute any alcohol or drug abuse patient.[facility] CenterIn the event this information is protected by the Federal Confidentiality of Alcohol and Drug Abuse Patient Records regulations: The Federal rules restrict any use of the information to criminally investigate or prosecute any alcohol or drug abuse patient.[facility] CenterIn the event this information is protected by the Federal Confidentiality of Alcohol and Drug Abuse Patient Records regulations: The Federal rules restrict any use of the information to criminally investigate or prosecute any alcohol or drug abuse patient.[facility] CenterIn the event this information is protected by the Federal Confidentiality of Alcohol and Drug Abuse Patient Records regulations: The Federal rules restrict any use of the information to criminally investigate or prosecute any alcohol or drug abuse patient.[facility] CenterIn the event this information is protected by the Federal Confidentiality of Alcohol and Drug Abuse Patient Records regulations: The Federal rules restrict any use of the information to criminally investigate or prosecute any alcohol or drug abuse patient.[facility] CenterIn the event this information is protected by the Federal Confidentiality of Alcohol and Drug Abuse Patient Records regulations: The Federal rules restrict any use of the information to criminally investigate or prosecute any alcohol or drug abuse patient.[facility] CenterIn the event this information is protected by the Federal Confidentiality of Alcohol and Drug Abuse Patient Records regulations: The Federal rules restrict any use of the information to criminally investigate or prosecute any alcohol or drug abuse patient.[facility] CenterIn the event this information is protected by the Federal Confidentiality of Alcohol and Drug Abuse Patient Records regulations: The Federal rules restrict any use of the information to criminally investigate or prosecute any alcohol or drug abuse patient.[facility] CenterIn the event this information is protected by the Federal Confidentiality of Alcohol and Drug Abuse Patient Records regulations: The Federal rules restrict any use of the information to criminally investigate or prosecute any alcohol or drug abuse patient.[facility] CenterIn the event this information is protected by the Federal Confidentiality of Alcohol and Drug Abuse Patient Records regulations: The Federal rules restrict any use of the information to criminally investigate or prosecute any alcohol or drug abuse patient.[facility] CenterIn the event this information is protected by the Federal Confidentiality of Alcohol and Drug Abuse Patient Records regulations: The Federal rules restrict any use of the information to criminally investigate or prosecute any alcohol or drug abuse patient.[facility] CenterIn the event this information is protected by the Federal Confidentiality of Alcohol and Drug Abuse Patient Records regulations: The Federal rules restrict any use of the information to criminally investigate or prosecute any alcohol or drug abuse patient.[facility] CenterIn the event this information is protected by the Federal Confidentiality of Alcohol and Drug Abuse Patient Records regulations: The Federal rules restrict any use of the information to criminally investigate or prosecute any alcohol or drug abuse patient.[facility] CenterIn the event this information is protected by the Federal Confidentiality of Alcohol and Drug Abuse Patient Records regulations: The Federal rules restrict any use of the information to criminally investigate or prosecute any alcohol or drug abuse patient.[facility] CenterIn the event this information is protected by the Federal Confidentiality of Alcohol and Drug Abuse Patient Records regulations: The Federal rules restrict any use of the information to criminally investigate or prosecute any alcohol or drug abuse patient.[facility] CenterIn the event this information is protected by the Federal Confidentiality of Alcohol and Drug Abuse Patient Records regulations: The Federal rules restrict any use of the information to criminally investigate or prosecute any alcohol or drug abuse patient.[facility] CenterIn the event this information is protected by the Federal Confidentiality of Alcohol and Drug Abuse Patient Records regulations: The Federal rules restrict any use of the information to criminally investigate or prosecute any alcohol or drug abuse patient.[facility] CenterIn the event this information is protected by the Federal Confidentiality of Alcohol and Drug Abuse Patient Records regulations: The Federal rules restrict any use of the information to criminally investigate or prosecute any alcohol or drug abuse patient.[facility] CenterIn the event this information is protected by the Federal Confidentiality of Alcohol and Drug Abuse Patient Records regulations: The Federal rules restrict any use of the information to criminally investigate or prosecute any alcohol or drug abuse patient.[facility] CenterIn the event this information is protected by the Federal Confidentiality of Alcohol and Drug Abuse Patient Records regulations: The Federal rules restrict any use of the information to criminally investigate or prosecute any alcohol or drug abuse patient.[facility] CenterIn the event this information is protected by the Federal Confidentiality of Alcohol and Drug Abuse Patient Records regulations: The Federal rules restrict any use of the information to criminally investigate or prosecute any alcohol or drug abuse patient.[facility] CenterIn the event this information is protected by the Federal Confidentiality of Alcohol and Drug Abuse Patient Records regulations: The Federal rules restrict any use of the information to criminally investigate or prosecute any alcohol or drug abuse patient.[facility] CenterIn the event this information is protected by the Federal Confidentiality of Alcohol and Drug Abuse Patient Records regulations: The Federal rules restrict any use of the information to criminally investigate or prosecute any alcohol or drug abuse patient.[facility] CenterIn the event this information is protected by the Federal Confidentiality of Alcohol and Drug Abuse Patient Records regulations: The Federal rules restrict any use of the information to criminally investigate or prosecute any alcohol or drug abuse patient.[facility] CenterIn the event this information is protected by the Federal Confidentiality of Alcohol and Drug Abuse Patient Records regulations: The Federal rules restrict any use of the information to criminally investigate or prosecute any alcohol or drug abuse patient.[facility] CenterIn the event this information is protected by the Federal Confidentiality of Alcohol and Drug Abuse Patient Records regulations: The Federal rules restrict any use of the information to criminally investigate or prosecute any alcohol or drug abuse patient.[facility] CenterIn the event this information is protected by the Federal Confidentiality of Alcohol and Drug Abuse Patient Records regulations: The Federal rules restrict any use of the information to criminally investigate or prosecute any alcohol or drug abuse patient.[facility] CenterIn the event this information is protected by the Federal Confidentiality of Alcohol and Drug Abuse Patient Records regulations: The Federal rules restrict any use of the information to criminally investigate or prosecute any alcohol or drug abuse patient.[facility] CenterIn the event this information is protected by the Federal Confidentiality of Alcohol and Drug Abuse Patient Records regulations: The Federal rules restrict any use of the information to criminally investigate or prosecute any alcohol or drug abuse patient.[facility] CenterIn the event this information is protected by the Federal Confidentiality of Alcohol and Drug Abuse Patient Records regulations: The Federal rules restrict any use of the information to criminally investigate or prosecute any alcohol or drug abuse patient.[facility] CenterIn the event this information is protected by the Federal Confidentiality of Alcohol and Drug Abuse Patient Records regulations: The Federal rules restrict any use of the information to criminally investigate or prosecute any alcohol or drug abuse patient.[facility] CenterIn the event this information is protected by the Federal Confidentiality of Alcohol and Drug Abuse Patient Records regulations: The Federal rules restrict any use of the information to criminally investigate or prosecute any alcohol or drug abuse patient.[facility] CenterIn the event this information is protected by the Federal Confidentiality of Alcohol and Drug Abuse Patient Records regulations: The Federal rules restrict any use of the information to criminally investigate or prosecute any alcohol or drug abuse patient.[facility] CenterIn the event this information is protected by the Federal Confidentiality of Alcohol and Drug Abuse Patient Records regulations: The Federal rules restrict any use of the information to criminally investigate or prosecute any alcohol or drug abuse patient.[facility] CenterIn the event this information is protected by the Federal Confidentiality of Alcohol and Drug Abuse Patient Records regulations: The Federal rules restrict any use of the information to criminally investigate or prosecute any alcohol or drug abuse patient.[facility] CenterIn the event this information is protected by the Federal Confidentiality of Alcohol and Drug Abuse Patient Records regulations: The Federal rules restrict any use of the information to criminally investigate or prosecute any alcohol or drug abuse patient.[facility] CenterIn the event this information is protected by the Federal Confidentiality of Alcohol and Drug Abuse Patient Records regulations: The Federal rules restrict any use of the information to criminally investigate or prosecute any alcohol or drug abuse patient.[facility] CenterIn the event this information is protected by the Federal Confidentiality of Alcohol and Drug Abuse Patient Records regulations: The Federal rules restrict any use of the information to criminally investigate or prosecute any alcohol or drug abuse patient.[facility] CenterIn the event this information is protected by the Federal Confidentiality of Alcohol and Drug Abuse Patient Records regulations: The Federal rules restrict any use of the information to criminally investigate or prosecute any alcohol or drug abuse patient.[facility] CenterIn the event this information is protected by the Federal Confidentiality of Alcohol and Drug Abuse Patient Records regulations: The Federal rules restrict any use of the information to criminally investigate or prosecute any alcohol or drug abuse patient.[facility] CenterIn the event this information is protected by the Federal Confidentiality of Alcohol and Drug Abuse Patient Records regulations: The Federal rules restrict any use of the information to criminally investigate or prosecute any alcohol or drug abuse patient.[facility] CenterIn the event this information is protected by the Federal Confidentiality of Alcohol and Drug Abuse Patient Records regulations: The Federal rules restrict any use of the information to criminally investigate or prosecute any alcohol or drug abuse patient.[facility] CenterIn the event this information is protected by the Federal Confidentiality of Alcohol and Drug Abuse Patient Records regulations: The Federal rules restrict any use of the information to criminally investigate or prosecute any alcohol or drug abuse patient.[facility] CenterIn the event this information is protected by the Federal Confidentiality of Alcohol and Drug Abuse Patient Records regulations: The Federal rules restrict any use of the information to criminally investigate or prosecute any alcohol or drug abuse patient.[facility] CenterIn the event this information is protected by the Federal Confidentiality of Alcohol and Drug Abuse Patient Records regulations: The Federal rules restrict any use of the information to criminally investigate or prosecute any alcohol or drug abuse patient.[facility] CenterIn the event this information is protected by the Federal Confidentiality of Alcohol and Drug Abuse Patient Records regulations: The Federal rules restrict any use of the information to criminally investigate or prosecute any alcohol or drug abuse patient.[facility]In the event this information is protected by the Federal Confidentiality of Alcohol and Drug Abuse Patient Records regulations: The Federal rules restrict any use of the information to criminally investigate or prosecute any alcohol or drug abuse patient.[facility] CenterIn the event this information is protected by the Federal Confidentiality of Alcohol and Drug Abuse Patient Records regulations: The Federal rules restrict any use of the information to criminally investigate or prosecute any alcohol or drug abuse patient.[facility] Reason for Visit (unrecogniz ed [...] Deloris Alexander MD [address] [address] [address] Imaging Referral ID Status Reason Start Date Expiration Date V isits Requested Visits Authorized [id number] Closed Auto-Generate d Referral 08/22/2022 06/29/2023 1 [...] MD [address] [place] [address] [place] [address] Referral ID Status Reason Start Date Expiration Date V isits Requested Visits Authorized [id number] Closed Auto-Generate d Referral 05/10/2023 03/16/2024 1 1 Reason Comments right shoulder Pain in right should er - here for an injection Reason Comments Radiology US Specialty Diagnoses / Procedures Referred By Contac t Referred To Contact US IMAGING Diagnoses Abnormal finding on CT scan Procedures US ABD RT UPPER QUADRANT US ABDOMINAL REAL TIME W/IMAGE LIMITED Kenneth Noland V, DO [address] [place] [address] [place] [address] Referral ID Status Reason Start Date Expiration Date V isits Requested Visits Authorized [id number] Closed Auto-Generate d Referral 09/06/2022 10/06/2023 1 1 Reason Comments Referral Information Scheduling evaluation Care Teams (unrecognized sec tion and content) [employer] Top Hat Body Maker Relationship Specialty Start Date End Date Kenneth Noland V, DO [address] [place], [place] [id number] PCP - General Family Practice 04/13/21 Mainor Amaro [address]y PRUITT Roc [address] [id number] Specialty Punch Machine Operator Cardiology 03/04/20 Deloris Alexander MD [address] [place] [address] Specialty Punch Machine Operator Cardiology 11/10/20 [employer] Top Hat Body Maker Relationship Specialty Start Date End Date Kenneth Noland V, DO [address] [place] [address] PCP - General Family Practice 04/13/21 Mainor Amaro [address] [place] [address] Specialty Punch Machine Operator Cardiology 03/04/20 Deloris Alexander MD [address] [place] [address] (Fax) Specialty Punch Machine Operator Cardiology 11/10/20 [employer] Top Hat Body Maker Relationship Specialty Start Date End Date Kenneth Noland V, DO [address] [place] [address] PCP - General Family Practice 04/13/21 Mainor Amaro [address] [place] [address] Specialty Punch Machine Operator Cardiology 03/04/20 Deloris Alexander MD [address] [place] [address] Specialty Punch Machine Operator Cardiology 11/10/20 [employer] Top Hat Body Maker Relationship Specialty Start Date End Date Kenneth Noland V, DO [address] [place] [address] PCP - General Family Practice 04/13/21 Mainor Amaro [address] [place] [address] Specialty Punch Machine Operator Cardiology 03/04/20 Deloris Alexander MD [address] [place] [address] Specialty Punch Machine Operator Cardiology 11/10/20 [employer]k Top Hat Body Maker Relationship Specialty Start Date End Date Kenneth Noland V, DO [address] [place] [address] PCP - General Family Practice 04/13/21 Mainor Amaro [address] [place] [address] Specialty Punch Machine Operator Cardiology 03/04/20 Deloris Alexander MD [address] [place] [address] Specialty Punch Machine Operator Cardiology 11/10/20 [employer] Top Hat Body Maker Relationship Specialty Start Date End Date Kenneth Noland V, DO [address] [place] [address] PCP - General Family Practice 04/13/21 Mainor Amaro [address] [place] [address] Specialty Punch Machine Operator Cardiology 03/04/20 Deloris Alexander MD [address] [place] [address] Specialty Punch Machine Operator Cardiology 11/10/20 [employer]k Top Hat Body Maker Relationship Specialty Start Date End Date Kenneth Noland V, DO [address] [place] [address] PCP - General Family Practice 04/13/[address] [place] [address] Specialty Punch Machine Operator Cardiology 03/04/20 Deloris Alexander MD [address] [place] [address] Specialty Punch Machine Operator Cardiology 11/10/20 [employer]k Top Hat Body Maker Relationship Specialty Start Date End Date Kenneth Noland V, DO [address] [place] [address] PCP - General Family Medicine 04/13/21 Mainor Amaro [address] [place] [address] Specialty Punch Machine Operator Cardiology 03/04/20 Deloris Alexander MD [address] [place] [address] Specialty Punch Machine Operator Cardiology 11/10/20 [employer] Top Hat Body Maker Relationship Specialty Start Date End Date Kenneth Noland V, DO [address] [place] [address] PCP - General Family Medicine 04/13/21 Mainor Amaro [address] [place] [address] Specialty Punch Machine Operator Cardiology 03/04/20 Deloris Alexander MD [address] [place] [address] (Fax) Specialty Punch Machine Operator Cardiology 11/10/20 Silk Top Hat Body Maker Relationship Specialty Start Date End Date Kenneth Noland V, DO [address] [place] [address] PCP - General Family Medicine 04/13/21 Mainor Amaro [address] [place] [address] Specialty Punch Machine Operator Cardiology 03/04/20 Deloris Alexander MD [address] [place] [address] Specialty Punch Machine Operator Cardiology 11/10/20 Silk Top Hat Body Maker Relationship Specialty Start Date End Date Kenneth Noland V, DO [address] [place] [address] PCP - General Family Medicine 04/13/21 Mainor Amaro [address] [place] [address] Specialty Punch Machine Operator Cardiology 03/04/20 Deloris Alexander MD [address] [place] [address] Specialty Punch Machine Operator Cardiology 11/10/20 Silk Top Hat Body Maker Relationship Specialty Start Date End Date Kenneth Noland V, DO [address] [place] [address] PCP - General Family Medicine 04/13/21 Mainor Amaro [address] [place] [address] Specialty Punch Machine Operator Cardiology 03/04/20 Deloris Alexander MD [address] [place] [address] Specialty Punch Machine Operator Cardiology 11/10/20 Silk Top Hat Body Maker Relationship Specialty Start Date End Date Kenneth Noland V, DO [address] [place] [address] PCP - General Family Medicine 04/13/21 Mainor Amaro [address] [place] [address] Specialty Punch Machine Operator Cardiology 03/04/20 Deloris Alexander MD [address] [place] [address] Specialty Punch Machine Operator Cardiology 11/10/20 Silk Top Hat Body Maker Relationship Specialty Start Date End Date Kenneth Noland V, DO [address] [place] [address] PCP - General Family Medicine 04/13/21 Mainor Amaro [address] [place] [address] Specialty Punch Machine Operator Cardiology 03/04/20 Deloris Alexander MD [address] [place] [address] Specialty Punch Machine Operator Cardiology 11/10/20 Silk Top Hat Body Maker Relationship Specialty Start Date End Date Kenneth Noland V, DO [address] [place] [address] PCP - General Family Medicine 04/13/21 Mainor Amaro [address] [place] [address] Specialty Punch Machine Operator Cardiology 03/04/20 Deloris Alexander MD [address] [place] [address] Specialty Punch Machine Operator Cardiology 11/10/20 Silk Top Hat Body Maker Relationship Specialty Start Date End Date Kenneth Noland V, DO [address] [place] [address] PCP - General Family Medicine 04/13/21 Mainor Amaro [address] [place] [address] Specialty Punch Machine Operator Cardiology 03/04/20 Deloris Alexander MD [address] [place] [address] (Fax) Specialty Punch Machine Operator Cardiology 11/10/20 Silk Top Hat Body Maker Relationship Specialty Start Date End Date Kenneth Noland V, DO [address] [place] [address] PCP - General Family Medicine 04/13/21 Mainor Aamro [address] [place] [address] Specialty Punch Machine Operator Cardiology 03/04/20 Deloris Alexander MD [address] [place] [address] Specialty Punch Machine Operator Cardiology 11/10/20 Silk Top Hat Body Maker Relationship Specialty Start Date End Date Kenneth Noland V, DO [address] [place] [address] PCP - General Family Medicine 04/13/21 Mainor Amaro [address] [place] [address] Specialty Punch Machine Operator Cardiology 03/04/20 Deloris Alexander MD [address] [place] [address] Specialty Punch Machine Operator Cardiology 11/10/20 Silk Top Hat Body Maker Relationship Specialty Start Date End Date Kenneth Noland V, DO [address] [place] [address] PCP - General Family Medicine 04/13/21 Mainor Amaro [address] [place] [address] Specialty Punch Machine Operator Cardiology 03/04/20 Deloris Alexander MD [address] [place] [address] Specialty Punch Machine Operator Cardiology 11/10/20 Silk Top Hat Body Maker Relationship Specialty Start Date End Date Kenneth Noland V, DO [address] [place] [address] PCP - General Family Medicine 04/13/[address] [place] [address] Specialty Punch Machine Operator Cardiology 03/04/20 Deloris Alexander MD [address] [place] [address] Specialty Punch Machine Operator Cardiology 11/10/20 Silk Top Hat Body Maker Relationship Specialty Start Date End Date Kenneth Noland V, DO [address] [place] [address] PCP - General Family Medicine 04/13/21 Mainor Amaro [address] [place] [address] Specialty Punch Machine Operator Cardiology 03/04/20 Deloris Alexander MD [address] [place] [address] Specialty Punch Machine Operator Cardiology 11/10/20 Silk Top Hat Body Maker Relationship Specialty Start Date End Date Kenneth Noland V, DO [address] [place] [address] PCP - General Family Medicine 04/13/21 Mainor Amaro [address] [place] [address] Specialty Punch Machine Operator Cardiology 03/04/20 Deloris Alexander MD [address] [place] [address] Specialty Punch Machine Operator Cardiology 11/10/20 Silk Top Hat Body Maker Relationship Specialty Start Date End Date Kenneth Noland V, DO [address] [place] [address] PCP - General Family Medicine 04/13/21 Mainor Amaro [address] [place] [address] Specialty Punch Machine Operator Cardiology 03/04/20 Deloris Alexander MD [address] [place] [address] (Fax) Specialty Punch Machine Operator Cardiology 11/10/20 Silk Top Hat Body Maker Relationship Specialty Start Date End Date Kenneth Noland V, DO [address] [place] [address] PCP - General Family Medicine 04/13/21 Mainor Amaro [address] [place] [address] Specialty Punch Machine Operator Cardiology 03/04/20 Deloris Alexander MD [address] [place] [address] Specialty Punch Machine Operator Cardiology 11/10/20 Silk Top Hat Body Maker Relationship Specialty Start Date End Date Kenneth Noland V, DO [address] [place] [address] PCP - General Family Medicine 04/13/21 Mainor Amaro [address] [place] [address] Specialty Punch Machine Operator Cardiology 03/04/20 Deloris Alexander MD [address] [place] [address] Specialty Punch Machine Operator Cardiology 11/10/20 Silk Top Hat Body Maker Relationship Specialty Start Date End Date Kenneth Noland V, DO [address] [place] [address] PCP - General Family Medicine 04/13/21 Mainor Amaro [address] [place] [address] Specialty Punch Machine Operator Cardiology 03/04/20 Deloris Alexander MD [address] [place] [address] Specialty Punch Machine Operator Cardiology 11/10/20 Silk Top Hat Body Maker Relationship Specialty Start Date End Date Kenneth Noland V, DO [address] [place] [address] PCP - General Family Medicine 04/13/21 Mainor Amaro [address] [place] [address] Specialty Punch Machine Operator Cardiology 03/04/20 Deloris Alexander MD [address] [place] [address] Specialty Punch Machine Operator Cardiology 11/10/20 Silk Top Hat Body Maker Relationship Specialty Start Date End Date Kenneth Noland V, DO [address] [place] [address] PCP - General Family Medicine 04/13/21 Mainro Amaro [address] [place] [address] Specialty Punch Machine Operator Cardiology 03/04/20 Deloris Alexander MD [address] [place] [address] Specialty Punch Machine Operator Cardiology 11/10/20 Silk Top Hat Body Maker Relationship Specialty Start Date End Date Kenneth Noland V, DO [address] [facility] [place] [address] PCP - General Family Medicine 04/13/21 Mainor Amaro [address] [place] [address] Specialty Punch Machine Operator Cardiology 03/04/20 Deloris Alexander MD [address] [place] [address] Specialty Punch Machine Operator Cardiology 11/10/20 Silk Top Hat Body Maker Relationship Specialty Start Date End Date Kenneth Noland V, DO [address] [place] [place] [address] PCP - General Family Medicine 04/13/21 Deloris Alexander MD [address] [place] [address] Specialty Punch Machine Operator Cardiology 11/10/20 Jo Mcdonald (Pa) [address] [facility] [place] [address] Physician District Manager Primary Care Sales Pulmonary and Critical Care Medicine 02/07/23 Silk Top Hat Body Maker Relationship Specialty Start Date End Date Kenneth Noland V, DO [address] [facility] [place] [address] PCP - General Family Medicine 04/13/21 Deloris Alexander MD [address] [place] [address] (Fax) Specialty Punch Machine Operator Cardiology 11/10/20 Jo Mcdonald (Pa) [address] [facility] [place] [address] Physician District Manager Primary Care Sales Pulmonary and Critical Care Medicine 02/07/23 Silk Top Hat Body Maker Relationship Specialty Start Date End Date Kenneth Noland V, DO [address] [place] [address] PCP - General Family Medicine 04/13/21 Deloris Alexander MD [address] [place] [address] (Fax) Specialty Punch Machine Operator Cardiology 11/10/20 Jo Mcdonald (Pa) [address] [facility] [address] Physician District Manager Primary Care Sales Pulmonary and Critical Care Medicine 02/07/23 Silk Top Hat Body Maker Relationship Specialty Start Date End Date Kenneth Noland V, DO [address] [place] [address] PCP - General Family Medicine 04/13/21 Deloris Alexander MD [address] [place] [address] (Fax) Specialty Punch Machine Operator Cardiology 11/10/20 Jo Mcdonald (Pa) [address] [facility] [address] Physician District Manager Primary Care Sales Pulmonary and Critical Care Medicine 02/07/23 Silk Top Hat Body Maker Relationship Specialty Start Date End Date Kenneth Noland V, DO [address] [place] [address] PCP - General Family Medicine 04/13/21 Deloris Alexander MD [address] [place] [address] (Fax) Specialty Punch Machine Operator Cardiology 11/10/20 Jo Mcdonald (Pa) [address] [facility] [place] [address] (Fax) Physician District Manager Primary Care Sales Pulmonary and Critical Care Medicine 02/07/23 Silk Top Hat Body Maker Relationship Specialty Start Date End Date Kenneth Noland V, DO [address] [place], [place] [id number] PCP - General Family Medicine 04/13/21 Deloris Alexander MD [address] [place] [address] (Fax) Specialty Punch Machine Operator Cardiology 11/10/20 Jo Mcdonald (Pa) [address] [facility] [address] Physician District Manager Primary Care Sales Pulmonary and Critical Care Medicine 02/07/23 Silk Top Hat Body Maker Relationship Specialty Start Date End Date Kenneth Noland V, DO [address] [place], [place] [id number] PCP - General Family Medicine 04/13/21 Deloris Alexander MD [address] [place] [address] (Fax) Specialty Punch Machine Operator Cardiology 11/10/20 Jo Mcdonald (Pa) [address] [place] [facility] [address] Physician District Manager Primary Care Sales Pulmonary and Critical Care Medicine 02/07/23 Silk Top Hat Body Maker Relationship Specialty Start Date End Date Kenneth Noland V, DO [address] [place], [place] [address] PCP - General Family Medicine 04/13/21 Mainor Amaro [address] [place] [address] Specialty Punch Machine Operator Cardiology 03/04/20 02/06/23 Deloris Alexander MD [address] [place] [address] (Fax) Specialty Punch Machine Operator Cardiology 11/10/20 Jo Mcdonald (Pa) [address] [facility] [place] [address] Physician District Manager Primary Care Sales Pulmonary and Critical Care Medicine 02/07/23 Silk Top Hat Body Maker Relationship Specialty Start Date End Date Kenneth Noland V, DO [address] [place], [place] [id number] PCP - General Family Medicine 04/13/21 Deloris Alexander MD [address] [place] [address] (Fax) Specialty Punch Machine Operator Cardiology 11/10/20 Jo Mcdonald (Pa) [address] [facility] [place] [address] Physician District Manager Primary Care Sales Pulmonary and Critical Care Medicine 02/07/23 Silk Top Hat Body Maker Relationship Specialty Start Date End Date Kenneth Noland V, DO [address] [place], [place] [id number] PCP - General Family Medicine 04/13/21 Deloris Alexander MD [address] [place] [address] (Fax) Specialty Punch Machine Operator Cardiology 11/10/20 Jo Mcdonald (Tia) [address] [place] [address] Physician District Manager Primary Care Sales Pulmonary and Critical Care Medicine 02/07/23 Silk Top Hat Body Maker Relationship Specialty Start Date End Date Kenneth Noland V, DO [address] [place] [address] PCP - General Family Medicine 04/13/21 Deloris Alexander MD [address] [place] [phone] (Fax) Specialty Punch Machine Operator Cardiology 11/10/20 Jo Mcdonald (Tia) [address] [place] [address] Physician District Manager Primary Care Sales Pulmonary and Critical Care Medicine 02/07/23 Silk Top Hat Body Maker Relationship Specialty Start Date End Date Kenneth Noland V, DO [address] [place], [place] [address] PCP - General Family Medicine 04/13/21 Deloris Alexander MD [address] [place] [address] Specialty Punch Machine Operator Cardiology 11/10/20 Jo Mcdonald PA [address] [place] [address] Physician District Manager Primary Care Sales Pulmonary and Critical Care Medicine 02/07/23 Silk Top Hat Body Maker Relationship Specialty Start Date End Date Kenneth Noland V, DO [address] [place] [address] PCP - General Family Medicine 04/13/21 Deloris Alexander MD [address] [place] [address] (Fax) Specialty Punch Machine Operator Cardiology 11/10/20 Jo Mcdonald PA [address] [place] [address] Physician District Manager Primary Care Sales Pulmonary and Critical Care Medicine 02/07/23 Silk Top Hat Body Maker Relationship Specialty Start Date End Date Kenneth Noland V, DO [address] [place] [address] PCP - General Family Medicine 04/13/21 Mainor Amaro [address] [address] Specialty Punch Machine Operator Cardiology 03/04/20 02/06/23 Deloris Alexander MD [address] [address] (Fax) Specialty Punch Machine Operator Cardiology 11/10/20 Silk Top Hat Body Maker Relationship Specialty Start Date End Date Kenneth Noland V, DO [address] [place] [address] PCP - General Family Medicine 04/13/21 Deloris Alexander MD [address] [place] [address] (Fax) Specialty Punch Machine Operator Cardiology 11/10/20 Jo Mcdonald PA [address] [place] [address] Physician District Manager Primary Care Sales Pulmonary and Critical Care Medicine 02/07/23 Silk Top Hat Body Maker Relationship Specialty Start Date End Date Kenneth Noland V DO [address] [facility] [place] [address] PCP - General Family Medicine 04/13/21 Deloris Alexander MD [address] [place] [address] Specialty Punch Machine Operator Cardiology 11/10/20 Jo Mcdonald PA [address] [address] Physician District Manager Primary Care Sales Pulmonary and Critical Care Medicine 02/07/23 Andrea Mosley MD [address] [place] [address] Surgeon Cardiac Surg 08/10/23 Silk Top Hat Body Maker Relationship Specialty Start Date End Date Kenneth Noland V, DO [address] [place] [address] PCP - General Family Medicine 04/13/21 Deloris Alexander MD [address] [place] [address] Specialty Punch Machine Operator Cardiology 11/10/20 Jo Mcdonald PA [address] [address] Physician District Manager Primary Care Sales Pulmonary and Critical Care Medicine 02/07/23 Andrea Mosley MD [address] [place] [address] Surgeon Cardiac Surg 08/10/23 FOR RECORDS PERTAINING [...] BE BASED ON THE PRIMARY CLINICAL RECORDS. [facility] [employer] [facility]. provides no warranty or guarantee of the accuracy or completeness of information in this document.
[2023-09-26 11:28] LABS: ALB/GLOB Ratio 1.1 RATIO (0.9-2.4); AST(SGOT) 31 U/L (15-37); Alanine Aminotransfer ALT/SGPT 31 U/L (16-61); Albumin, Serum 3.9 g/dL (3.2-5.0); Alkaline Phosphatase 72 U/L (45-117); Anion Gap 6 (5-15); BUN 27 mg/dL (7-18); BUN/Creat Ratio 23.1 RATIO (10-20); Calcium,Total 9.5 mg/dL (8.5-10.1); Chloride 105 mmol/L (98-107); Cholesterol 126 mg/dL (200); Creatinine, Serum 1.17 mg/dL (0.70-1.30); EST Glomerular Filtration Rate 64 mL/min (>60); Est Glom Filt Rate - Afr Amer 77 mL/min (>60); Globulin 3.7 g/dL (2.2-4.2); Glucose 102 mg/dL (74-106); High Density Lipoprotein 41 mg/dL; Potassium 3.9 mmol/L (3.5-5.1); Protein, Total 7.6 g/dL (6.4-8.2); Sodium Level 139 mmol/L (136-145); T4 Free Direct 1.09 ng/dL (0.76-1.46); Thyroid Stim Hormone (TSH) 3.15 uIU/mL (0.358-3.74); Triglycerides 98 mg/dL; Very Low Density Lipoprotein 20 mg/dL (5-40)
== END | disposition home or self-care (01) ==
PROVIDERS: PCP Family Medicine; Referring Provider Family Medicine; Visit Provider Family Medicine
DX: I10 Essential (primary) hypertension (principal)
CPT/HCPCS: 36415; 80053; 80061; 84439; 84443

== ENCOUNTER → 2023-10-22 | Outpatient (CLI) | payer MEDICARE, SELFPAY ==
--- NOTE | 2023-10-22 12:50 | RAD_ITS ---
EXAM: XR CHEST, 2 VIEWS CLINICAL INDICATION: shortness of breath TECHNIQUE: Frontal and lateral views of the chest. COMPARISON: September 01, 2022 FINDINGS: LUNGS AND PLEURAL SPACES: Moderate left pleural effusion with adjacent passive atelectasis. No pneumothorax. HEART: Left cardiac margin is obscured by pleural effusion. Left atrial appendage of clip identified, new in the interval. MEDIASTINUM: No hilar or mediastinal enlargement. BONES/JOINTS: Degenerative changes of the spine and of the acromioclavicular joints. No acute fracture. SOFT TISSUES: Unremarkable. VASCULATURE: Atherosclerotic calcifications of the nonenlarged thoracic aorta. RAD/Chest PA and Lateral IMPRESSION: Moderate left pleural effusion with adjacent passive atelectasis. Electronically Signed: Ancelmo Guzman MD at 1:49 EST ,
[2023-10-22 16:07] LABS: Hematocrit 32.2 % (40-54); Mean Corp Hgb Conc 31.1 g/dL (32-36); Mean Corpuscular Hgb 27.8 pg (27.0-32.0); Mean Corpuscular Volume 89.4 fL (80-94); Mean Platelet Vol. 10.7 fl (6.2-12.0); Platelet Count 344 K/mm3 (150-450); RBC Distribution Width CV 14.1 % (11.6-14.6); RBC Distribution Width SD 46.1 fl (35.1-43.9); White Blood Count 7.5 K/mm3 (4.4-11.0)
[2023-10-22 16:26] LABS: ALB/GLOB Ratio 0.7 RATIO (0.9-2.4); AST(SGOT) 62 U/L (15-37); Alanine Aminotransfer ALT/SGPT 51 U/L (16-61); Albumin, Serum 2.8 g/dL (3.2-5.0); Alkaline Phosphatase 168 U/L (45-117); Anion Gap 6 (5-15); BUN 44 mg/dL (7-18); Calcium,Total 8.9 mg/dL (8.5-10.1); Chloride 101 mmol/L (98-107); Creatinine, Serum 1.42 mg/dL (0.70-1.30); EST Glomerular Filtration Rate 51 mL/min (>60); Est Glom Filt Rate - Afr Amer 62 mL/min (>60); Globulin 4.3 g/dL (2.2-4.2); Glucose 109 mg/dL (74-106); Protein, Total 7.1 g/dL (6.4-8.2); Sodium Level 136 mmol/L (136-145); Thyroid Stim Hormone (TSH) 3.07 uIU/mL (0.358-3.74)
[2023-10-22 16:45] LABS: BNP,B-Type NATRIURETIC PEPTIDE 252.4 pg/mL (0-100)
== END | disposition home or self-care (01) ==
PROVIDERS: PCP Family Medicine; Referring Provider Family Medicine; Visit Provider Family Medicine
DX: R06.02 Shortness of breath (principal); I48.91 Unspecified atrial fibrillation
CPT/HCPCS: 36415; 71046; 80053; 83880; 84443; 85027

== ENCOUNTER → 2024-06-23 | Outpatient (CLI) | payer MEDICARE, SELFPAY ==
[2024-06-23 17:54] LABS: Absolute Lymphocyte Count 1.23 X10^3/uL (0.83-4.51); Absolute Neutrophil Count 3.3 X10^3/uL (2.0-7.7); Basophil# 0.02 X10^3/uL; Basophil% 0.4 % (0-1); Hematocrit 39.5 % (40-54); Hemoglobin 12.2 g/dL (13.0-16.5); Lymphocyte # 1.23 X10^3/ul (0.83-4.51); Lymphocyte % 24.2 % (19-41); Mean Corp Hgb Conc 30.9 g/dL (32-36); Mean Corpuscular Hgb 27.7 pg (27.0-32.0); Mean Corpuscular Volume 89.6 fL (80-94); Mean Platelet Vol. 11.1 fl (6.2-12.0); Monocyte# 0.47 X10^3/uL; Monocyte% 9.2 % (0-10); NRBC Flagged by Analyzer 0 % (0-5); Neutrophil # 3.25 X10^3/uL (2.7-7.7); Neutrophil % 63.8 % (47-70); Platelet Count 174 K/mm3 (150-450); RBC Distribution Width CV 13.6 % (11.6-14.6); RBC Distribution Width SD 44.7 fl (35.1-43.9); Red Blood Count 4.41 M/mm3 (4.6-6.2); White Blood Count 5.1 K/mm3 (4.4-11.0)
[2024-06-23 18:09] LABS: Vitamin D,25 Hydroxy 22.8 ng/mL
[2024-06-23 18:33] LABS: ALB/GLOB Ratio 0.9 RATIO (0.9-2.4); AST(SGOT) 27 U/L (15-37); Alanine Aminotransfer ALT/SGPT 28 U/L (16-61); Albumin, Serum 3.7 g/dL (3.2-5.0); Alkaline Phosphatase 76 U/L (45-117); Anion Gap 5 (5-15); BUN 25 mg/dL (7-18); BUN/Creat Ratio 21.2 RATIO (10-20); Calcium,Total 9.4 mg/dL (8.5-10.1); Chloride 106 mmol/L (98-107); Cholesterol 135 mg/dL (200); Creatinine, Serum 1.18 mg/dL (0.70-1.30); EST Glomerular Filtration Rate 63 mL/min (>60); Est Glom Filt Rate - Afr Amer 76 mL/min (>60); Globulin 4.1 g/dL (2.2-4.2); Glucose 98 mg/dL (74-106); High Density Lipoprotein 38 mg/dL; Potassium 4.6 mmol/L (3.5-5.1); Protein, Total 7.8 g/dL (6.4-8.2); Sodium Level 136 mmol/L (136-145); Triglycerides 142 mg/dL; Very Low Density Lipoprotein 28 mg/dL (5-40)
== END | disposition home or self-care (01) ==
LOC: MFPLAB 14:13
PROVIDERS: PCP Family Medicine; Visit Provider Family Medicine
DX: E03.9 Hypothyroidism, unspecified (principal); E55.9 Vitamin D deficiency, unspecified; I10 Essential (primary) hypertension; E78.5 Hyperlipidemia, unspecified
CPT/HCPCS: 36415; 80053; 80061; 82306; 84443; 85025

== ENCOUNTER → 2025-07-03 | Outpatient (CLI) | payer MEDICARE, SELFPAY ==
[2025-07-03 12:24] LABS: Hematocrit 29.7 % (40-54); Hemoglobin 9.4 g/dL (13.0-16.5); Mean Corp Hgb Conc 31.6 g/dL (32-36); Mean Corpuscular Volume 83.7 fL (80-94); Mean Platelet Vol. 10.4 fl (6.2-12.0); Platelet Count 193 K/mm3 (150-450); RBC Distribution Width CV 14.6 % (11.6-14.6); RBC Distribution Width SD 44.8 fl (35.1-43.9); Red Blood Count 3.55 M/mm3 (4.6-6.2); White Blood Count 4.7 K/mm3 (4.4-11.0)
[2025-07-03 15:48] LABS: Cholesterol 109 mg/dL (<=200); Low Density Lipoprotein Calc. 48 mg/dL; PSA,Total - Annual Screen 0.71 ng/mL (0.02-4.00); Triglycerides 136 mg/dL; Very Low Density Lipoprotein 27 mg/dL (5-40); Vitamin D,25 Hydroxy 29.6 ng/mL (30-100); cholesterol:hdl ratio screen 2.90
== END | disposition home or self-care (01) ==
LOC: MFPLAB 11:21
PROVIDERS: PCP Family Medicine; Visit Provider Family Medicine
DX: E55.9 Vitamin D deficiency, unspecified (principal); I48.91 Unspecified atrial fibrillation; Z12.5 Encounter for screening for malignant neoplasm of prostate; E78.00 Pure hypercholesterolemia, unspecified; Z13.1 Encounter for screening for diabetes mellitus; E03.9 Hypothyroidism, unspecified
CPT/HCPCS: 36415; 80061; 82306; 83036; 84153; 84443; 85027; G0103